=== PATIENT | male | born 1955 | race Caucasian/White ===

== ENCOUNTER → 2018-07-23 09:55 | Outpatient (CLI) | payer MEDICARE, MEDICAID, SELFPAY ==
[2018-07-23 13:00] LABS: Anion Gap 8 (5-15); BUN 6 mg/dL (7-18); BUN/Creat Ratio 7.6 RATIO (10-20); Calcium,Total 8.6 mg/dL (8.5-10.1); Chloride 100 mmol/L (98-107); Cholesterol 154 mg/dL (200); Creatinine, Serum 0.78 mg/dL (0.70-1.30); EST Glomerular Filtration Rate 106 mL/min (>60); Est Glom Filt Rate - Afr Amer 128 mL/min (>60); Glucose 95 mg/dL (74-106); High Density Lipoprotein 39 mg/dL; PSA,Total - Annual Screen 2.86 ng/mL (0.00-4.00); Potassium 4.1 mmol/L (3.5-5.1); Sodium Level 135 mmol/L (136-145); Thyroid Stim Hormone (TSH) 0.25 uIU/mL (0.358-3.74); Triglycerides 187 mg/dL; Very Low Density Lipoprotein 37 mg/dL (5-40)
== END ==
PROVIDERS: Family Provider Family Medicine; PCP Family Medicine; Visit Provider Family Medicine
DX: Z00.00 Encounter for general adult medical examination without abnormal findings (principal); Z12.5 Encounter for screening for malignant neoplasm of prostate
CPT/HCPCS: 36415; 80048; 80061; 82306; 84153; 84443; G0103

== ENCOUNTER → 2018-09-15 08:36 | Outpatient (CLI) | payer MEDICARE, MEDICAID, SELFPAY ==
[2018-09-15 10:47] LABS: Thyroid Stim Hormone (TSH) 1.08 uIU/mL (0.358-3.74)
== END ==
PROVIDERS: Family Provider Family Medicine; PCP Family Medicine; Visit Provider Family Medicine
DX: E03.9 Hypothyroidism, unspecified (principal)
CPT/HCPCS: 36415; 84443

== ENCOUNTER 2019-02-22 16:17 | Emergency (ER) | payer MEDICARE, MEDICAID, SELFPAY ==
[2019-02-22 16:18] VITALS: BP 175/96; PULSE 68; RESP 18; TEMP 37.7; O2SAT 98; BMI 32.8
[2019-02-22 17:19] VITALS: BP 175/96; PULSE 68; RESP 18; TEMP 37.7; O2SAT 98; BMI 32.8
[2019-02-22 17:23] VITALS: BP 172/97; PULSE 64; RESP 15; O2SAT 98
--- NOTE | 2019-02-22 18:35 | ED.VIS.GEN ---
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 Denies: Bilateral ear pain Cardiovascular: Denies: Chest pain, Palpitations Respiratory: Reports: Dyspnea - only w/ coughing, Cough. Denies: Sputum, Dyspnea on exertion, Orthopnea Gastrointestinal: Reports: Abdominal pain - tight when bends over. Denies: Nausea, Vomiting, Diarrhea Musculoskeletal: Denies: Back pain, Swelling, Extremity Pain Skin: Denies: Rash, Wounds Physical Exam Vital Signs/Narrative: Vital Signs Temp Pulse Resp BP Pulse Ox 02/22/19 17:23 64 15 172/97 H 98 02/22/19 17:19 99.8 F H 68 18 175/96 H 98 02/22/19 16:18 99.8 F H 68 18 175/96 H 98 Inital Vital Signs reviewed: Yes General: Well nourished, Well developed, Obese, No Acute Distress Head: Normocephalic, Atraumatic Eyes: Perrl, EOMI ENT: Moist mucous membranes, No rhinorrhea, TM's clear, Nasal congestion. Negative for: Sinus tenderness Neck: Supple, Nontender, No lymphadenopathy, No JVD Cardiovascular: Regular rate, Regular rhythm, No murmurs Respiratory: No distress, CTA bilaterally, Chest nontender Abdomen: Soft, Nontender, Nondistended, Normal bowel sounds Extremities: Nontender, No edema. Negative for: Calf Tenderness Skin: Normal color, No rash Neurological: Alert, Oriented x3, Cranial nerves II-XII grossly intact, Normal Strength, Normal Sensation, - - stuttering speech. not aphasic. Psychological: Normal affect, Normal Mood Diagnostic/Tx/Re-eval - Medical Decision Making Other than a low-grade temperature and hypertensive at 170, his vital signs are normal. He is ambulatory without difficulty. His lungs sound clear and his pulse ox is good. I do not think he needs worked up for pneumonia or influenza at this time since his symptoms have been present for 2 months and 2 weeks. I think it is reasonable since he has not seen a physician/practitioner prior to now for this illness, to place him on a broad-spectrum antibiotic such as a Z-Gabriele. He is agreeable to this and following up with his doctor. ED Disposition - Plan for ED Patient: Disposition: Home or Assisted Living Diagnosis: URI, acute Instructions: ED Upper Resp Infec Abx Tx Prescriptions: Azithromycin 250 mg PO DAILY #4 tab Referrals: Jossue Anderson MD [Primary Care Provider] - 1 Week if not improving
--- NOTE | 2019-02-22 18:39 | ED.DCSUM_ITS ---
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 Denies: Bilateral ear pain Cardiovascular: Denies: Chest pain, Palpitations Respiratory: Reports: Dyspnea - only w/ coughing, Cough. Denies: Sputum, Dyspnea on exertion, Orthopnea Gastrointestinal: Reports: Abdominal pain - tight when bends over. Denies: Nausea, Vomiting, Diarrhea Musculoskeletal: Denies: Back pain, Swelling, Extremity Pain Skin: Denies: Rash, Wounds Physical Exam Vital Signs/Narrative: Vital Signs Temp Pulse Resp BP Pulse Ox 02/22/19 17:23 64 15 172/97 H 98 02/22/19 17:19 99.8 F H 68 18 175/96 H 98 02/22/19 16:18 99.8 F H 68 18 175/96 H 98 Inital Vital Signs reviewed: Yes General: Well nourished, Well developed, Obese, No Acute Distress Head: Normocephalic, Atraumatic Eyes: Perrl, EOMI ENT: Moist mucous membranes, No rhinorrhea, TM's clear, Nasal congestion. Negative for: Sinus tenderness Neck: Supple, Nontender, No lymphadenopathy, No JVD Cardiovascular: Regular rate, Regular rhythm, No murmurs Respiratory: No distress, CTA bilaterally, Chest nontender Abdomen: Soft, Nontender, Nondistended, Normal bowel sounds Extremities: Nontender, No edema. Negative for: Calf Tenderness Skin: Normal color, No rash Neurological: Alert, Oriented x3, Cranial nerves II-XII grossly intact, Normal Strength, Normal Sensation, - - stuttering speech. not aphasic. Psychological: Normal affect, Normal Mood Diagnostic/Tx/Re-eval - Medical Decision Making Other than a low-grade temperature and hypertensive at 170, his vital signs are normal. He is ambulatory without difficulty. His lungs sound clear and his pulse ox is good. I do not think he needs worked up for pneumonia or influenza at this time since his symptoms have been present for 2 months and 2 weeks. I think it is reasonable since he has not seen a physician/practitioner prior to now for this illness, to place him on a broad-spectrum antibiotic such as a Z- Gabriele. He is agreeable to this and following up with his doctor. ED Disposition - Plan for ED Patient: Disposition: Home or Assisted Living Diagnosis: URI, acute Instructions: ED Upper Resp Infec Abx Tx Prescriptions: Azithromycin 250 mg PO DAILY #4 tab Referrals: Jossue Anderson MD [Primary Care Provider] - 1 Week if not improving
[2019-02-22] MEDS: Azithromycin 250 MG Tablet 500 MG PO (18:50)
[2019-02-22 18:51] VITALS: BP 176/101; PULSE 62; RESP 16; O2SAT 96
== END 2019-02-22 18:53 | disposition home or self-care (01) ==
PROVIDERS: Emergency Provider Emergency Medicine; Family Provider Family Medicine; PCP Family Medicine
DX: J06.9 Acute upper respiratory infection, unspecified (principal); Z87.891 Personal history of nicotine dependence; E66.9 Obesity, unspecified
CPT/HCPCS: 99282

== ENCOUNTER → 2019-04-10 11:51 | Outpatient (CLI) | payer MEDICARE, MEDICAID, SELFPAY ==
[2019-04-10 14:46] LABS: Absolute Neutrophil Count 4.7 X10^3/uL (2.0-7.7); Basophil# 0.02 X10^3/uL; Basophil% 0.2 % (0-1); Eosinophil# 0.22 X10^3/uL; Eosinophils% 2.6 % (0-5); Hematocrit 44.9 % (40-54); Hemoglobin 15.4 g/dl (13.0-16.5); Lymphocyte % 32.3 % (19-41); Mean Corp Hgb Conc 34.3 g/gl (32-36); Mean Corpuscular Hgb 30.5 pg (27.0-32.0); Mean Corpuscular Volume 88.9 fL (80-94); Mean Platelet Vol. 9.9 fl (6.2-12.0); Monocyte# 0.68 X10^3/uL; Monocyte% 8.1 % (0-10); Neutrophil # 4.71 X10^3/uL (2.7-7.7); Neutrophil % 56.6 % (47-70); Platelet Count 232 K/mm3 (150-450); RBC Distribution Width CV 13.7 % (11.6-14.6); RBC Distribution Width SD 44.3 fl (35.1-43.9); Red Blood Count 5.05 M/mm3 (4.6-6.2); White Blood Count 8.4 K/mm3 (4.4-11.0)
[2019-04-10 14:49] LABS: POSITIVE COUNT NO; POSITIVE DIFFERENTIAL NO; POSITIVE MORPHOLOGY NO
[2019-04-10 15:04] LABS: Erythrocyte Sedimentation Rate 1 mm/hr (0-20)
[2019-04-10 15:12] LABS: Anion Gap 6 (5-15); BUN 11 mg/dL (7-18); BUN/Creat Ratio 11.1 RATIO (10-20); CRP < 2.90 mg/L (0.0-3.0); Calcium,Total 9.1 mg/dL (8.5-10.1); Chloride 101 mmol/L (98-107); Creatinine, Serum 0.99 mg/dL (0.70-1.30); EST Glomerular Filtration Rate 81 mL/min (>60); Est Glom Filt Rate - Afr Amer 98 mL/min (>60); Glucose 102 mg/dL (74-106); Potassium 4.7 mmol/L (3.5-5.1); Rheumatoid Factor < 10.0 IU/mL (<15); Sodium Level 136 mmol/L (136-145)
== END ==
PROVIDERS: Family Provider Family Medicine; PCP Family Medicine; Referring Provider Family Medicine; Visit Provider Family Medicine
DX: M25.50 Pain in unspecified joint (principal)
CPT/HCPCS: 36415; 80048; 85025; 85652; 86140; 86431

== ENCOUNTER 2019-11-23 14:10 | Observation (INO) | payer MEDICARE, MEDICAID, SELFPAY ==
[2019-11-23] VITALS (9 sets, daily range): BP systolic 142–179; BP diastolic 87–95; PULSE 58–71; RESP 14–18; TEMP 36.5–36.8; O2SAT 96–100; BMI 32.8; BMI 32.5; BMI 32.6
--- NOTE | 2019-11-23 14:18 | EKG12_ITS ---
Test Reason : CP ADMIT Blood Pressure : / mmHG Vent. Rate : 054 BPM Atrial Rate : 054 BPM P-R Int : 140 ms QRS Dur : 120 ms QT Int : 424 ms P-R-T Axes : 039 -19 018 degrees QTc Int : 402 ms Sinus bradycardia Right bundle branch block Abnormal ECG No previous ECGs available Confirmed by LAVON WASHINGTON, YOHANA ([id number]), features editor CECIL HEDRICK ([id number]) on 11/27/2019 10:55:54 AM Referred By: Sidney Haskins Confirmed By:BRANDON DOLL MD
--- NOTE | 2019-11-23 14:20 | RAD_ITS ---
STUDY: X-RAY CHEST REASON FOR EXAM: Male, 64 years old. Chest pain TECHNIQUE: Frontal view of the chest COMPARISON: 03/19/2014 FINDINGS: The lungs are clear. There are no pleural effusions. There is no pneumothorax. The heart is normal in size. The visualized osseous structures are within normal limits. RAD/Chest 1 View (Portable) IMPRESSION: No acute thoracic pathology. Electronically Signed: Akash Lira, at 14:44 EST Tel , Service support ,
[2019-11-23 14:27] LABS: Absolute Lymphocyte Count 2.47 X10^3/uL (0.83-4.51); Absolute Neutrophil Count 4.6 X10^3/uL (2.0-7.7); Basophil# 0.04 X10^3/uL; Basophil% 0.5 % (0-1); Eosinophil# 0.18 X10^3/uL; Eosinophils% 2.3 % (0-5); Hematocrit 41.5 % (40-54); Hemoglobin 14.1 g/dL (13.0-16.5); Lymphocyte # 2.47 X10^3/ul (4.0); Mean Corpuscular Hgb 29.9 pg (27.0-32.0); Mean Corpuscular Volume 87.9 fL (80-94); Mean Platelet Vol. 9.2 fl (6.2-12.0); Monocyte# 0.69 X10^3/uL; Monocyte% 8.7 % (0-10); NRBC Flagged by Analyzer 0 % (0-5); Neutrophil # 4.56 X10^3/uL (2.7-7.7); Neutrophil % 57.2 % (47-70); Platelet Count 198 K/mm3 (150-450); Red Blood Count 4.72 M/mm3 (4.6-6.2)
[2019-11-23 14:41] LABS: Anion Gap 4 (5-15); BUN 8 mg/dL (7-18); BUN/Creat Ratio 8.7 RATIO (10-20); Calcium,Total 8.8 mg/dL (8.5-10.1); Chloride 99 mmol/L (98-107); Creatinine, Serum 0.92 mg/dL (0.70-1.30); EST Glomerular Filtration Rate 88 mL/min (>60); Est Glom Filt Rate - Afr Amer 107 mL/min (>60); Estimated Creatinine Clearance 94.31 ml/min; Glucose 95 mg/dL (74-106); Potassium 3.8 mmol/L (3.5-5.1); Sodium Level 133 mmol/L (136-145)
--- NOTE | 2019-11-23 14:46 | EKG12_ITS ---
Test Reason : CP Blood Pressure : / mmHG Vent. Rate : 064 BPM Atrial Rate : 064 BPM P-R Int : 144 ms QRS Dur : 118 ms QT Int : 400 ms P-R-T Axes : 033 -26 006 degrees QTc Int : 412 ms Normal sinus rhythm Right bundle branch block Minimal voltage criteria for LVH, may be normal variant Abnormal ECG Confirmed by LAVON WASHINGTON, YOHANA ([id number]), writer editor CECIL HEDRICK ([id number]) on 11/27/2019 11:25:37 AM Referred By: Sidney Haskins Confirmed By:BRANDON DOLL MD
--- NOTE | 2019-11-23 15:00 | ED.VIS.GEN ---
History of Present Illness Chief Complaint: Chest Pain Detail of Chief Complaint: Exertional chest pain Informant: Patient Onset: Weeks Context: Onset with activity, Sudden Onset Timing: Intermittent Quality: Midsternal sharp Location: Anterior midsternal Current Severity: - - None Maximum Severity: Moderate Worsened by: Precipitated by exertion Relieved by: Uncertain Associated Symptoms: Dyspnea Narrative: Patient is a 64-year-old male who is cognitively impaired who lives in a long term who was sent in because of anterior sharp chest pain. He states this is been intermittent for more than a month. He initially denied any precipitating exacerbating or alleviating factors. Upon further questioning he states he notices the pain when he exerts himself . He also becomes short of breath. Duration varies. He is not able to tell me if it goes away with rest or not. Prior similar symptoms: No Recent Illness/Hospitalization: No - Past Medical History (1) Unknown past medical history Status: Acute Past Medical History - Allergies and Home Meds Allergies/Adverse Reactions: Allergies Penicillins [PCN] Allergy (Verified 02/22/19 16:20) Anaphylaxis Primary Care Physician: Jossue Anderson MD [Primary Care Provider] - Prior records reviewed: Yes Past Medical History: None Lives: - - Resides at a long term Smoking Status: Former smoker Alcohol: None Drugs: None Review of Systems ROS: Unable to Obtain - History is limited. General: Denies: Chills, Fever, Malaise Eyes: Denies: Visual changes - bilaterally, Blurred Vision - bilaterally ENT: Denies: Rhinorrhea, Sore throat Cardiovascular: Reports: Chest pain. Denies: Palpitations Respiratory: Reports: Dyspnea, Dyspnea on exertion Gastrointestinal: Denies: Abdominal pain, Nausea, Vomiting, Diarrhea Musculoskeletal: Denies: Myalgias, Arthralgias, Back pain, Swelling, Extremity Pain Skin: Denies: Rash, Wounds Neurological: Denies: Weakness, Parasthesia, Numbness Psych: Denies: Depression, Anxiety Hematologic: Denies: Easy bruising, Easy bleeding Physical Exam Vital Signs/Narrative: Vital Signs Temp Pulse Resp BP Pulse Ox 11/23/19 14:21 98 11/23/19 14:11 98.3 F 69 18 179/95 H 98 Inital Vital Signs reviewed: Yes General: Well nourished, Well developed, No Acute Distress Head: Normocephalic, Atraumatic Eyes: Perrl, EOMI. Negative for: Pale conjunctiva, Scleral icterus ENT: Moist mucous membranes, No rhinorrhea Neck: Supple, Nontender Cardiovascular: Regular rate, Regular rhythm, No murmurs, Normal S1, Normal S2 Respiratory: No distress, CTA bilaterally, Chest nontender Abdomen: Soft, Nontender, Nondistended, Normal bowel sounds Back: Nontender, Normal Inspection Extremities: Nontender, No edema. Negative for: Calf Tenderness Skin: Normal color, No rash Neurological: Alert, Oriented x3, Cranial nerves II-XII grossly intact, Normal Strength, Normal Sensation Psychological: Normal affect, Normal Mood Diagnostic/Tx/Re-eval Impressions Chest X-Ray 11/23/19 14:20 IMPRESSION: No acute thoracic pathology. Electronically Signed: Akash Pankaj, at 14:44 EST Tel , Service support , 11/23/19 14:20 Chest 1 View (Portable) [RAD] Stat Laboratory Results 11/23/19 11/23/19 14:15 14:15 WBC 8.0 RBC 4.72 Hgb 14.1 Hct 41.5 MCV 87.9 MCH 29.9 MCHC 34.0 RDW Std Deviation 42.0 RDW Coeff of Evelin 13.0 Plt Count 198 MPV 9.2 Immature Gran % (Auto) 0.300 Neut % (Auto) 57.2 Lymph % (Auto) 31.0 [place] % (Auto) 8.7 Eos % (Auto) 2.3 Baso % (Auto) 0.5 Absolute Neuts (auto) 4.6 Absolute Lymphs (auto) 2.47 Nucleated RBC % 0 Sodium 133 L Potassium 3.8 Chloride 99 Carbon Dioxide 30.0 Anion Gap 4 L BUN 8 Creatinine 0.92 Estim Creat Clear Calc 94.31 Est GFR (MDRD) Af Amer 107 Est GFR (MDRD) Non-Af 88 BUN/Creatinine Ratio 8.7 L Glucose 95 Calcium 8.8 Troponin I < 0.015 Chest x-ray reviewed by me and agree with radiology read of negative. Blood work including troponin is negative. Because he describes exertional chest pain is 64 years of age hospitalist has been paged for further work-up i.e. stress test and serial enzymes. - EKG Initial EKG Interpretation: Sinus Rhythm - Sinus rhythm with ventricular rate of 64. IA interval 144 ms. QRS duration 118 ms. There is an RR prime in V1. This probably represents incomplete right bundle branch block. QT interval 400 ms. There is a flipped T wave in lead III only. - Medical Decision Making Patient reports exertional pain. History is limited secondary to cognitive impairment. EKG, chest x-ray appropriate blood work was obtained to differentiate whether this may or may not be cardiac ischemia specifically non-ST elevation ND. Differential cardiac versus noncardiac. ED Disposition - Plan for ED Patient: Disposition: Acute Care Hospital [facility] Diagnosis: Exertional chest pain Referrals: Jossue Anderson MD [Primary Care Provider] -
--- NOTE | 2019-11-23 15:50 | ED.RN ---
called and spoke with [facility] custodial that pt will be staying overnight on PCU. spoke with
--- NOTE | 2019-11-23 16:27 | PCM.HP.STD ---
History of Present Illness Date of Admission: 11/23/19 Chief Complaint: Chest Pain The patient is a 64 year old M with a PMH as below from a long term, presenting with chest pain is been going on for about a month. He says it is intermittent and occurs with both at rest and with exertion. He states that at times he will get lightheaded with this and short of breath but has not had any diaphoresis. The chest pain does not radiate to either his jaw or his left arm. He denies any loss of consciousness or syncopal episodes with the chest pain. In the ER EKG was normal sinus with no signs of ischemia, initial troponin was negative. He is in a long term because of a cognitive disability and therefore was a difficult historian. Past Medical History Allergies Penicillins [PCN] Allergy (Verified 02/22/19 16:20) Anaphylaxis Home Medications: Ambulatory Orders Medication Instructions Recorded Aspirin [Aspirin EC] 325 mg PO DAILY 11/23/19 Benztropine [Cogentin] 2 mg PO DAILY 11/23/19 Budesonide/Formoterol 160/4.5 1 puff IH BID 11/23/19 [Symbicort 160/4.5 Mcg Inhaler (SP)] Cholecalciferol (VIT D3) [Vitamin 1,000 unit PO DAILY 11/23/19 D3] Docusate Sodium [Colace] 200 mg PO DAILY 11/23/19 Doxycycline 100 mg PO BID 11/23/19 Gabapentin [Neurontin] 300 mg PO TID 11/23/19 Levothyroxine [Synthroid] 150 mcg PO DAILY 11/23/19 Lisinopril 20 mg PO DAILY 11/23/19 Lorazepam 0.5 mg PO BID PRN 11/23/19 Lorazepam 1 mg PO BID 11/23/19 Meloxicam 15 mg PO DAILY 11/23/19 Multivit-Min/FA/Lycopen/Lutein 1 tab PO DAILY 11/23/19 [Centrum Silver Men Tablet] Mupirocin [Bactroban] 1 applicatio TOPICAL BID 11/23/19 Omeprazole 20 mg PO DAILY 11/23/19 Simvastatin [Zocor] 20 mg PO DAILY 11/23/19 traZODone [Desyrel] 100 mg PO DAILY 11/23/19 Surgical History: no surgical history Lives: - - Resides at a long term Smoking Status: Former smoker Tobacco Use: Cigarettes Alcohol: None Drugs: None - *Family History Maternal History Items: Cancer Paternal History Items: Cancer Review of Systems Constitutional: Denies: Chills, Fever, Weight Change HEENT: Denies: Head Aches, Sinus Congestion, Sinus Drainage Cardiovascular: Reports: Chest Pain. Denies: Palpitations Respiratory: Denies: Cough, Shortness of breath at rest, Sputum production Gastrointestinal: Denies: Abdominal Pain, Nausea, Vomiting Genitourinary: Denies: Dysuria Musculoskeletal: Denies: Joint Pain, Joint Tenderness Skin: Denies: Rash, Wounds Neurological: Denies: Numbness, Tingling, Focal weakness Psychiatric: Denies: Anxiety, Depression Hematologic/ Lymphatic: Denies: Easy Bruising, Easy Bleeding VTE Information - Inpt Only VTE Present on Admission: No Patient Problems: Active and Suspected Problems Unknown past medical history (Acute) Exertional chest pain (Acute) - Physical Exam Vitals/I&O's: Vital Signs Temp Pulse Resp BP Pulse Ox 97.8 F 60 16 159/90 H 100 11/23/19 16:10 11/23/19 16:10 11/23/19 16:10 11/23/19 16:10 11/23/19 16:10 Oxygen Flow Rate (L/min) 2 Oxygen Delivery Method Nasal Cannula Weight: 253 lb 9.6 oz Body Mass Index (BMI) 32.5 General: Alert, Oriented x3, Cooperative, No apparent distress HEENT: Atraumatic, PERRLA, EOMI, Normocephalic Oral: Moist Mucosa Neck: Supple, No JVD Lungs: Clear to auscultation, Normal air movement, No rhonchi, No wheeze, No rales, Diminished Cardiovascular: Regular rate, Regular Rhythm, Normal S1, Normal S2, No murmurs Abdomen: Soft, Non Tender, Non-Distended, No Hepato-splenomegaly Extremities: No edema, Capillary Refill Less than 3 Seconds Skin: No rashes, No breakdown Neurological: Neuro grossly intact, Sensory exam intact to light touch and pain Psych/Mental Status: Normal Affect, Appropriate, - - Speech is slow likely secondary to cognitive disability Laboratory Results 11/23/19 14:15: WBC 8.0, RBC 4.72, Hgb 14.1, Hct 41.5, MCV 87.9, MCH 29.9, MCHC 34.0, RDW Std Deviation 42.0, RDW Coeff of Evelin 13.0, Plt Count 198, MPV 9.2, Immature Gran % (Auto) 0.300, Neut % (Auto) 57.2, Lymph % (Auto) 31.0, [place] % (Auto) 8.7, Eos % (Auto) 2.3, Baso % (Auto) 0.5, Absolute Neuts (auto) 4.6, Absolute Lymphs (auto) 2.47, Nucleated RBC % 0 11/23/19 14:15: Sodium 133 L, Potassium 3.8, Chloride 99, Carbon Dioxide 30.0, Anion Gap 4 L, BUN 8, Creatinine 0.92, Estim Creat Clear Calc 94.31, Est GFR (MDRD) Af Amer 107, Est GFR (MDRD) Non-Af 88, BUN/Creatinine Ratio 8.7 L, Glucose 95, Calcium 8.8, Troponin I < 0.015 Current Medications Nitroglycerin (Nitrostat) 0.4 mg SUBLINGUAL Q5M PRN PRN Reason: CARDIAC/CHEST PAIN Sodium Chloride () 10 - 40 ml IV UD PRN PRN Reason: SALINE FLUSH Assessment/Plan All Active Problems Unknown past medical history (Acute) Exertional chest pain (Acute) 1. Chest pain/HTN/HLD -Initial troponin was negative and EKG was unremarkable -Obtain serial troponins as well as a stress test in the morning -No family history of heart disease as I can tell and is never had any kind of cardiac work-up previously at this institution -continue with his lisinopril, can add medications as necessary -Continue with simvastatin, as well as aspirin 2. COPD -Currently not in exacerbation -Continue with his home Symbicort 3. Hypothyroidism -Stable -Continue with Synthroid 4. GERD -Stable -Continue with PPI 5. Anxiety/depression/cognitive disability -Stable -Continue with Ativan, gabapentin, Cogentin DVT: Low risk Code Visit OBSV E&M: 00805 Initial observation care L2
[2019-11-23] MEDS: Budesonide Respules 0.5 MG/2 ML AMPUL.NEB. INHALATION (19:17)
[2019-11-23] MEDS: Albuterol 2.5 MG/3 ML VIAL.NEB. INHALATION (19:17)
[2019-11-23] MEDS: Docusate Sodium 100 MG Capsule 200 MG PO (21:31)
[2019-11-23] MEDS: Doxycycline 100 MG CAPSULE PO (21:31)
[2019-11-23] MEDS: traZODone 100 MG Tablet PO (21:31)
[2019-11-23] MEDS: LORazepam 1 MG Tablet PO (21:31)
[2019-11-23] MEDS: Atorvastatin Calcium 10 MG Tablet PO (21:31)
[2019-11-23] MEDS: Gabapentin 300 MG Capsule PO (21:32)
[2019-11-24] VITALS (7 sets, daily range): BP systolic 120–146; BP diastolic 61–84; PULSE 57–74; RESP 14–16; TEMP 36.5–36.7; O2SAT 95–98
--- NOTE | 2019-11-24 05:55 | EKG12_ITS ---
Test Reason : AM EKG Blood Pressure : / mmHG Vent. Rate : 061 BPM Atrial Rate : 061 BPM P-R Int : 136 ms QRS Dur : 116 ms QT Int : 428 ms P-R-T Axes : 040 -18 011 degrees QTc Int : 430 ms Normal sinus rhythm Normal ECG When compared with ECG of 23-NOV-2019 14:46, MANUAL COMPARISON REQUIRED, DATA IS UNCONFIRMED Confirmed by LAVON WASHINGTON, YOHANA ([id number]), map editor CECIL HEDRICK ([id number]) on 11/27/2019 10:40:16 AM Referred By: Sidney Haskins Confirmed By:BRANDON DOLL MD
[2019-11-24] MEDS: Lisinopril 20 MG Tablet PO (06:18)
[2019-11-24] MEDS: Aspirin E.C. 325 MG Tablet PO (06:18)
[2019-11-24 06:19] LABS: Absolute Lymphocyte Count 2.03 X10^3/uL (0.83-4.51); Absolute Neutrophil Count 4.1 X10^3/uL (2.0-7.7); Basophil# 0.03 X10^3/uL; Basophil% 0.4 % (0-1); Eosinophil# 0.15 X10^3/uL; Eosinophils% 2.2 % (0-5); Hemoglobin 14.5 g/dL (13.0-16.5); Lymphocyte # 2.03 X10^3/ul (4.0); Lymphocyte % 29.4 % (19-41); Mean Corp Hgb Conc 33.7 g/dL (32-36); Mean Corpuscular Hgb 29.8 pg (27.0-32.0); Mean Corpuscular Volume 88.5 fL (80-94); Mean Platelet Vol. 9.2 fl (6.2-12.0); Monocyte# 0.63 X10^3/uL; Monocyte% 9.1 % (0-10); NRBC Flagged by Analyzer 0 % (0-5); Neutrophil # 4.06 X10^3/uL (2.7-7.7); Neutrophil % 58.8 % (47-70); Platelet Count 190 K/mm3 (150-450); RBC Distribution Width CV 13.5 % (11.6-14.6); RBC Distribution Width SD 43.4 fl (35.1-43.9); Red Blood Count 4.86 M/mm3 (4.6-6.2); White Blood Count 6.9 K/mm3 (4.4-11.0)
[2019-11-24] MEDS: 0.9% Saline Lock 10 ML Syringe IV (06:49)
[2019-11-24 06:58] LABS: Anion Gap 7 (5-15); BUN 8 mg/dL (7-18); BUN/Creat Ratio 9.2 RATIO (10-20); Calcium,Total 8.6 mg/dL (8.5-10.1); Chloride 102 mmol/L (98-107); Cholesterol 182 mg/dL (200); Creatinine, Serum 0.87 mg/dL (0.70-1.30); EST Glomerular Filtration Rate 93 mL/min (>60); Est Glom Filt Rate - Afr Amer 113 mL/min (>60); Estimated Creatinine Clearance 99.73 ml/min; Glucose 93 mg/dL (74-106); High Density Lipoprotein 40 mg/dL; Potassium 3.9 mmol/L (3.5-5.1); Sodium Level 138 mmol/L (136-145); Triglycerides 242 mg/dL; Very Low Density Lipoprotein 48 mg/dL (5-40)
[2019-11-24] MEDS: Albuterol 2.5 MG/3 ML VIAL.NEB. INHALATION ×2 (07:07→13:13)
[2019-11-24] MEDS: Budesonide Respules 0.5 MG/2 ML AMPUL.NEB. INHALATION (07:07)
[2019-11-24] MEDS: Pantoprazole Sodium 20 MG Tablet PO (12:28)
[2019-11-24] MEDS: Meloxicam 15 MG Tablet PO (12:28)
[2019-11-24] MEDS: Benztropine 2 MG Tablet PO (12:28)
[2019-11-24] MEDS: Doxycycline 100 MG CAPSULE PO (12:28)
[2019-11-24] MEDS: LORazepam 1 MG Tablet PO (12:28)
[2019-11-24] MEDS: Gabapentin 300 MG Capsule PO (12:29)
--- NOTE | 2019-11-24 12:31 | CASEMGMT ---
ONDINA called patient's snf and asked if they would be picking patient up at d/c. He said they would not be able to pick him up, but he has taxi passes with him and he just needs to call a taxi. ONDINA let him know patient will likely be discharged today if his stress test is okay. Shahla LAW
--- NOTE | 2019-11-24 12:52 | STRESSREP ---
Stress Test Report Date: 11/24/2019 Procedure: Pharmacologic stress nuclear imaging study Indications: Chest pain Consent: Per the patient Procedure: The patient underwent pharmacologic (Regadenoson) evaluation with a peak heart rate of 93 beats per minute (59 %predicted maximal heart rate) and a peak blood pressure of 150/84 mmHg. The baseline ECG demonstrated normal sinus rhythm, right bundle branch block. EKG during lexiscan infusion revealed no significant ischemic change. EKG post infusion revealed no significant ischemic [There were no cardiac dysrhythmias pretest, during pharmacologic infusion, or recovery]. [There was no complaint of chest discomfort during pharmacologic infusion or recovery]. The examination was discontinued secondary to completion of protocol. Impression: 1. Lexiscan stress test test is negative for Lexiscan infusion induced EKG changes of ischemia. 2. Lexiscan stress test test is negative for Lexiscan infusion induced chest pain. 3. Results of the nuclear portion of the test is as below Myocardial perfusion imaging study: Technique: The patient was injected with 13.9 millicuries of technetium 99m Cardiolite and subsequently rest SPECT Cardiolite nuclear imaging was obtained in the horizontal long, vertical long, and short axis views. The patient underwent pharmacologic (Regadenoson) evaluation. Please see above for details. The patient was injected with 43.1 millicuries of technetium 99m Cardiolite and subsequently stress SPECT Cardiolite nuclear imaging was obtained in the horizontal long, vertical long, and short axis views. A gated Cardiolite study at peak stress was obtained. Interpretation: Rest and stress SPECT Cardiolite nuclear imaging status post realignment, normalization, and attenuation correction demonstrate mildly decreased radioisotope uptake in the inferior wall on both the rest and stress images prior to attenuation correction. After attenuation correction there is normal myocardial radioisotope uptake. These findings are suggestive of diaphragmatic attenuation artifact. Gated images reveal no significant regional wall motion abnormalities. The reported LVEF is 62 %. Impression: 1. There is no evidence of significant ischemia or infarction. 2. Estimated ejection fraction is 62%. This note was generated with [employer]ely[employer] software. It may contain incorrect words, spelling, and punctuation that were not noted in checking the note before signing.
--- NOTE | 2019-11-24 13:13 | DCINST_ITS ---
- Discharge Diagnoses Current Active Problems: Current Active and Chronic Problems Unknown past medical history (Acute) Exertional chest pain (Acute) You will use the following diet at home:: Cardiac Your food should be the consistency of: Regular Your liquids should be the consistency of: Regular/Thin Discharge Activity: Return to Normal Activity Call your doctor if you observe: Fever of 101 or Higher, Shortness of breath, Dizziness, Fainting spells, Swelling in the ankles, Chest pain, Increased palpitations (irregular heartbeat) Allergies/Adverse Reactions: Allergies Penicillins [PCN] Allergy (Verified 02/22/19 16:20) Anaphylaxis Medications to take at Discharge Aspirin [Aspirin EC] 325 mg PO DAILY 11/23/19 Benztropine [Cogentin] 2 mg PO DAILY 11/23/19 Budesonide/Formoterol 160/4.5 [Symbicort 160/4.5 Mcg Inhaler (SP)] 1 puff IH BID 11/23/19 Cholecalciferol (VIT D3) [Vitamin D3] 1,000 unit PO DAILY 11/23/19 Docusate Sodium [Colace] 200 mg PO DAILY 11/23/19 Doxycycline 100 mg PO BID 11/23/19 Gabapentin [Neurontin] 300 mg PO TID 11/23/19 Levothyroxine [Synthroid] 150 mcg PO DAILY 11/23/19 Lisinopril 20 mg PO DAILY 11/23/19 Lorazepam 0.5 mg PO BID PRN 11/23/19 Lorazepam 1 mg PO BID 11/23/19 Meloxicam 15 mg PO DAILY 11/23/19 Multivit-Min/FA/Lycopen/Lutein [Centrum Silver Men Tablet] 1 tab PO DAILY 11/23/19 Mupirocin [Bactroban] 1 applicatio TOPICAL BID 11/23/19 Omeprazole 20 mg PO DAILY 11/23/19 Simvastatin [Zocor] 20 mg PO DAILY 11/23/19 traZODone [Desyrel] 100 mg PO DAILY 11/23/19 Primary Care Physician: Jossue Anderson MD [Primary Care Provider] - Please follow up with your Primary Care Physician in: 3-5 days Test Results: Test results from this visit will be discussed in further detail at your follow- up appointment, if applicable.
--- NOTE | 2019-11-24 13:14 | PCM.DC.SUM ---
Discharge Date and Diagnosis - Problem List Patient Problems: Active and Suspected Problems Unknown past medical history (Acute) Exertional chest pain (Acute) Date of Admission: 11/23/19 Date of Discharge: 11/24/19 - Primary Discharge Diagnosis Active and Suspected Problems Unknown past medical history (Acute) Exertional chest pain (Acute) Hospital Course and Treatment Imaging Results: CXR: IMPRESSION: No acute thoracic pathology. Stress Test: Procedure: The patient underwent pharmacologic (Regadenoson) evaluation with a peak heart rate of 93 beats per minute (59 %predicted maximal heart rate) and a peak blood pressure of 150/84 mmHg. The baseline ECG demonstrated normal sinus rhythm, right bundle branch block. EKG during lexiscan infusion revealed no significant ischemic change. EKG post infusion revealed no significant ischemic [There were no cardiac dysrhythmias pretest, during pharmacologic infusion, or recovery]. [There was no complaint of chest discomfort during pharmacologic infusion or recovery]. The examination was discontinued secondary to completion of protocol. Impression: 1. Lexiscan stress test test is negative for Lexiscan infusion induced EKG changes of ischemia. 2. Lexiscan stress test test is negative for Lexiscan infusion induced chest pain. 3. Results of the nuclear portion of the test is as below Myocardial perfusion imaging study: Technique: The patient was injected with 13.9 millicuries of technetium 99m Cardiolite and subsequently rest SPECT Cardiolite nuclear imaging was obtained in the horizontal long, vertical long, and short axis views. The patient underwent pharmacologic (Regadenoson) evaluation. Please see above for details. The patient was injected with 43.1 millicuries of technetium 99m Cardiolite and subsequently stress SPECT Cardiolite nuclear imaging was obtained in the horizontal long, vertical long, and short axis views. A gated Cardiolite study at peak stress was obtained. Interpretation: Rest and stress SPECT Cardiolite nuclear imaging status post realignment, normalization, and attenuation correction demonstrate mildly decreased radioisotope uptake in the inferior wall on both the rest and stress images prior to attenuation correction. After attenuation correction there is normal myocardial radioisotope uptake. These findings are suggestive of diaphragmatic attenuation artifact. Gated images reveal no significant regional wall motion abnormalities. The reported LVEF is 62 %. Impression: 1. There is no evidence of significant ischemia or infarction. 2. Estimated ejection fraction is 62%. Consults: None Operations: None Procedures: Nuclear stress test Summary of Care Provided: Per HPI: The patient is a 64 year old M with a PMH as below from a shelter, presenting with chest pain is been going on for about a month. He says it is intermittent and occurs with both at rest and with exertion. He states that at times he will get lightheaded with this and short of breath but has not had any diaphoresis. The chest pain does not radiate to either his jaw or his left arm. He denies any loss of consciousness or syncopal episodes with the chest pain. In the ER EKG was normal sinus with no signs of ischemia, initial troponin was negative. He is in a shelter because of a cognitive disability and therefore was a difficult historian. Hospital Course: 1. Chest pain/HTN/SEM-10-aarg-old male who is a resident of a shelter presents with chest pain that is been going on for several weeks. He states that it comes with rest and with exertion and is located over the left chest. He denied any radiation. EKG was unremarkable for any ischemic changes. Troponins were negative x3 and he underwent a stress test on the morning of discharge which was also normal. He states that his chest pain has completely resolved. Blood pressures have been stable and I recommend that he continue all of his home medications at their current dosages. He will need to follow-up with his primary care doctor in 3 to 5 days. I discussed with him the discharge plan and he did express understanding. 2. His other medical diagnoses were evaluated and his home medications were continued where appropriate Patient Problems: Active and Suspected Problems Unknown past medical history (Acute) Exertional chest pain (Acute) - Physical Exam Vitals/I&O's: Vital Signs Temp Pulse Resp BP Pulse Ox 98.0 F 68 14 120/61 95 11/24/19 12:20 11/24/19 12:20 11/24/19 12:20 11/24/19 12:20 11/24/19 12:20 Oxygen Flow Rate (L/min) 2 Oxygen Delivery Method Room Air Weight: 253 lb 9.6 oz Body Mass Index (BMI) 32.5 Intake and Output for Last 24 Hours 11/22/19 11/23/19 11/24/19 23:59 23:59 23:59 Intake Total 480 / 480 360 / 360 Output Total 2049 / 2049 650 / 650 Balance -1570 / -1570 -290 / -290 General: Alert, Oriented x3, Cooperative, No apparent distress HEENT: Atraumatic, PERRLA, EOMI, Normocephalic Oral: Moist Mucosa Neck: Supple, No JVD Lungs: Clear to auscultation, Normal air movement, No rhonchi, No wheeze, No rales, Diminished Cardiovascular: Regular rate, Regular Rhythm, Normal S1, Normal S2, No murmurs Abdomen: Soft, Non Tender, Non-Distended, No Hepato-splenomegaly Extremities: No edema, Capillary Refill Less than 3 Seconds Skin: No rashes, No breakdown Neurological: Neuro grossly intact, Sensory exam intact to light touch and pain Psych/Mental Status: Normal Affect, Appropriate, - - Speech is slow likely secondary to cognitive disability Laboratory Results 11/23/19 14:15: WBC 8.0, RBC 4.72, Hgb 14.1, Hct 41.5, MCV 87.9, MCH 29.9, MCHC 34.0, RDW Std Deviation 42.0, RDW Coeff of Evelin 13.0, Plt Count 198, MPV 9.2, Immature Gran % (Auto) 0.300, Neut % (Auto) 57.2, Lymph % (Auto) 31.0, Braxton % (Auto) 8.7, Eos % (Auto) 2.3, Baso % (Auto) 0.5, Absolute Neuts (auto) 4.6, Absolute Lymphs (auto) 2.47, Nucleated RBC % 0 11/23/19 14:15: Sodium 133 L, Potassium 3.8, Chloride 99, Carbon Dioxide 30.0, Anion Gap 4 L, BUN 8, Creatinine 0.92, Estim Creat Clear Calc 94.31, Est GFR (MDRD) Af Amer 107, Est GFR (MDRD) Non-Af 88, BUN/Creatinine Ratio 8.7 L, Glucose 95, Calcium 8.8, Troponin I < 0.015 11/23/19 17:42: Troponin I < 0.015 11/23/19 20:42: Troponin I < 0.015 11/24/19 05:35: WBC 6.9, RBC 4.86, Hgb 14.5, Hct 43.0, MCV 88.5, MCH 29.8, MCHC 33.7, RDW Std Deviation 43.4, RDW Coeff of Evelin 13.5, Plt Count 190, MPV 9.2, Immature Gran % (Auto) 0.100, Neut % (Auto) 58.8, Lymph % (Auto) 29.4, Braxton % (Auto) 9.1, Eos % (Auto) 2.2, Baso % (Auto) 0.4, Absolute Neuts (auto) 4.1, Absolute Lymphs (auto) 2.03, Nucleated RBC % 0 11/24/19 05:35: Sodium 138, Potassium 3.9, Chloride 102, Carbon Dioxide 29.0, Anion Gap 7, BUN 8, Creatinine 0.87, Estim Creat Clear Calc 99.73, Est GFR (MDRD) Af Amer 113, Est GFR (MDRD) Non-Af 93, BUN/Creatinine Ratio 9.2 L, Glucose 93, Calcium 8.6, Triglycerides 242 H, Cholesterol 182, LDL Cholesterol 94, VLDL Cholesterol 48 H, HDL Cholesterol 40 Current Medications Albuterol Sulfate (Ventolin Aerosols) 2.5 mg INHALATION Q6HWA.RT [facility] Last Admin: 11/24/19 13:13 Dose: 2.5 mg Documented by: Aspirin (Ecotrin) 325 mg PO DAILYCM [facility] [place] Last Admin: 11/24/19 06:18 Dose: 325 mg Documented by: Atorvastatin Calcium (Lipitor) 10 mg PO QHS [facility] [place] Last Admin: 11/23/19 21:31 Dose: 10 mg Documented by: Benztropine Mesylate (Cogentin) 2 mg PO DAILY [facility] [place] Last Admin: 11/24/19 12:28 Dose: 2 mg Documented by: Budesonide (Pulmicort Aerosol) 0.5 mg INHALATION Q12H.RT [facility] [place] Last Admin: 11/24/19 07:07 Dose: 0.5 mg Documented by: Docusate Sodium (Colace) 200 mg PO HS [facility] [place] Last Admin: 11/23/19 21:31 Dose: 200 mg Documented by: Doxycycline Monohydrate (Doxycycline) 100 mg PO BID [facility] [place] Last Admin: 11/24/19 12:28 Dose: 100 mg Documented by: Gabapentin (Neurontin) 300 mg PO TID [facility] [place] Last Admin: 11/24/19 12:29 Dose: 300 mg Documented by: Levothyroxine Sodium (Synthroid) 150 mcg PO DAILY@0600 [facility] [place] Last Admin: 11/24/19 06:23 Dose: Not Given Documented by: Lisinopril (Zestril) 20 mg PO DAILY [facility] [place] Last Admin: 11/24/19 06:18 Dose: 20 mg Documented by: Lorazepam (Ativan) 0.5 mg PO BID PRN PRN Reason: ANXIETY Lorazepam (Ativan) 1 mg PO BID [facility] [place] Last Admin: 11/24/19 12:28 Dose: 1 mg Documented by: Meloxicam (Mobic) 15 mg PO DAILY [facility] [place] Last Admin: 11/24/19 12:28 Dose: 15 mg Documented by: Nitroglycerin (Nitrostat) 0.4 mg SUBLINGUAL Q5M PRN PRN Reason: CARDIAC/CHEST PAIN Nutritional Formula (Lactose Free) (Ensure Enlive) 120 ml PO 4X/DAY [facility] [place] Last Admin: 11/24/19 12:29 Dose: Not Given Documented by: Pantoprazole Sodium (Protonix) 20 mg PO DAILY [facility] [place] Last Admin: 11/24/19 12:28 Dose: 20 mg Documented by: Sodium Chloride () 10 - 40 ml IV UD PRN PRN Reason: SALINE FLUSH Last Admin: 11/24/19 06:49 Dose: 10 ml Documented by: Trazodone HCl (Desyrel) 100 mg PO HS [facility] [place] Last Admin: 11/23/19 21:31 Dose: 100 mg Documented by: Discharge Activity: Return to Normal Activity Call your doctor if you observe: Fever of 101 or Higher, Shortness of breath, Dizziness, Fainting spells, Swelling in the ankles, Chest pain, Increased palpitations (irregular heartbeat) Home Medications: Medications to take at Discharge Aspirin [Aspirin EC] 325 mg PO DAILY 11/23/19 Benztropine [Cogentin] 2 mg PO DAILY 11/23/19 Budesonide/Formoterol 160/4.5 [Symbicort 160/4.5 Mcg Inhaler (SP)] 1 puff IH BID 11/23/19 Cholecalciferol (VIT D3) [Vitamin D3] 1,000 unit PO DAILY 11/23/19 Docusate Sodium [Colace] 200 mg PO DAILY 11/23/19 Doxycycline 100 mg PO BID 11/23/19 Gabapentin [Neurontin] 300 mg PO TID 11/23/19 Levothyroxine [Synthroid] 150 mcg PO DAILY 11/23/19 Lisinopril 20 mg PO DAILY 11/23/19 Lorazepam 0.5 mg PO BID PRN 11/23/19 Lorazepam 1 mg PO BID 11/23/19 Meloxicam 15 mg PO DAILY 11/23/19 Multivit-Min/FA/Lycopen/Lutein [Centrum Silver Men Tablet] 1 tab PO DAILY 11/23/19 Mupirocin [Bactroban] 1 applicatio TOPICAL BID 11/23/19 Omeprazole 20 mg PO DAILY 11/23/19 Simvastatin [Zocor] 20 mg PO DAILY 11/23/19 traZODone [Desyrel] 100 mg PO DAILY 11/23/19 Primary Care Physician: Jossue Anderson MD [Primary Care Provider] - Please follow up with your Primary Care Physician in: 3-5 days Disposition: Home Minutes spent on discharge:: 35 Patient Condition:: Stable Medical Necessity - Tobacco Use Smoking Status: Former smoker Tobacco Use: Cigarettes Meaningful Use Info Meaningful Use Diagnoses (Choose all that apply): None applicable Code Visit OBSV E&M: 49032 Observation care discharge
== END 2019-11-24 13:14 | disposition home or self-care (01) ==
LOC: ED 15:42 → PCU 15:45
PROVIDERS: Admitting Provider Family Medicine; Emergency Provider Emergency Medicine; Family Provider Family Medicine; PCP Family Medicine; Referring Provider Family Medicine; Visit Provider Family Medicine
DX: R07.89 Other chest pain (principal); R06.02 Shortness of breath; Z87.891 Personal history of nicotine dependence; Z79.899 Other long term (current) drug therapy; Z79.82 Long term (current) use of aspirin; J44.9 Chronic obstructive pulmonary disease, unspecified; E03.9 Hypothyroidism, unspecified; K21.9 Gastro-esophageal reflux disease without esophagitis; F41.9 Anxiety disorder, unspecified; F32.9 Major depressive disorder, single episode, unspecified; I45.10 Unspecified right bundle-branch block; R42 Dizziness and giddiness
CPT/HCPCS: 36415; 71045; 78452; 80048; 80061; 84484; 85025; 93005; 93017; 94640; 99218; 99251; 99285; A9500; J7030; A4216; G0378; G0463; J2785

== ENCOUNTER 2020-01-31 17:23 | Emergency (ER) | payer MEDICARE, MEDICAID, SELFPAY ==
[2019-11-23 16:00] VITALS: BMI 32.5
[2020-01-31 17:24] VITALS: BP 164/82; PULSE 81; RESP 16; TEMP 37.3; O2SAT 97; BMI 32.8
--- NOTE | 2020-01-31 17:40 | RAD_ITS ---
STUDY: X-RAY CHEST REASON FOR EXAM: Male, 64 years old. COUGH, SOB TECHNIQUE: PA and lateral views of the chest. COMPARISON: Prior study of 11/23/2019 FINDINGS: The lungs are clear and expanded. There is no demonstrated pleural abnormality. Normal size heart. Normal mediastinum and miguelina. Normal visualized pulmonary arteries. Normal visualized aortic arch and descending thoracic aorta. There are diffuse degenerative changes of the visualized thoracic spine. Normal visualized ribs, clavicles, and shoulders. There is no demonstrated abnormality of the visualized soft tissue structures of the upper abdomen. RAD/Chest PA and Lateral IMPRESSION: Degenerative changes of the thoracic spine. No acute cardiopulmonary disease process is seen. Electronically Signed: Jeffery Nguyen MD at 17:55 EST , Service support ,
--- NOTE | 2020-01-31 18:28 | ED.DCSUM_ITS ---
- ER Visit Summary Date of Service: 01/31/20 Chief Complaint: Cough and congestion History of Present Illness: The patient is a [address] Jossue Ivory. Patient has a cough and congestion that began approximately 1 week ago. He denies any fever or chills. He reports he has very little difficulty breathing. Cough is productive of white sputum without blood. Physical Examination: Vitals: Stable. Afebrile. General: Well-nourished and well-developed. Head: Normocephalic atraumatic. Neck: Supple, no lymphadenopathy. No JVD. Nontender. Cardiovascular: Regular rate and rhythm. No murmurs. Respiratory: No respiratory distress. Clear to auscultation bilaterally. Abdominal: Soft, nontender, nondistended, normal bowel sounds. No guarding, rebound, or peritoneal signs. Back: Nontender. Extremities: Nontender, no edema. Skin: Normal color, no rash. Neurologic: Alert and oriented ?3. Cranial nerves II through XII are intact. Normal strength and sensation. Psych: Normal affect. Test Results: Chest x-ray shows no acute disease. Emergency Department Course and Treatment: Patient's main complaint is congestion. He will be discharged with Zyrtec. Treatment Plan: Instructed to follow-up his primary care physician 1 week if not improving. Return to the emergency department for any worsening symptoms. Disposition: To home in improved and stable condition. Impression: 1. URI. This note was generated with [employer] dictation software. It may contain incorrect words, spelling, and punctuation that were not noted in review of the chart prior to signing ED Disposition - Plan for ED Patient: Disposition: Home or Assisted Living Instructions: BRONCHITIS, No Antibiotic (Adult) Prescriptions: Cetirizine HCl [Zyrtec] 10 mg PO DAILY #14 cap Prescription Printed Referrals: Jossue Anderson MD [Primary Care Provider] - 1 Week
[2020-01-31 18:37] VITALS: BP 151/82; PULSE 81; RESP 18; O2SAT 97
== END 2020-01-31 18:38 | disposition home or self-care (01) ==
LOC: ED 17:53
PROVIDERS: Emergency Provider Emergency Medicine; PCP Family Medicine
DX: J06.9 Acute upper respiratory infection, unspecified (principal); Z87.891 Personal history of nicotine dependence; I25.2 Old myocardial infarction
CPT/HCPCS: 71046; 99282

== ENCOUNTER 2020-02-12 14:30 | Outpatient (RCR) | payer MEDICARE, MEDICAID, SELFPAY ==
[2019-11-23 16:00] VITALS: BMI 32.5
--- NOTE | 2020-02-03 15:44 | HP.OTEVAL_ITS ---
Patient's Visit Information ERNST LEVY is a 64 year old M, referred to Occupational Therapy by Jossue Anderson MD, with a diagnosis of L 3rd digit trigger finger. Date of Evaluation: 02/03/20 Occupational Therapist: Ely Perla - Subjective Subjective: Pt seen for initial occupational therapy evaluation for increased pain L 3rd digit trigger finger. Pt states he has had this pain for a few months and its not getting any better. 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 His L hand middle finger MP joint bothers him with his job. Pt states he had a shot in his R middle finger MP about a year ago because of pain and now is doing much better. Pt states right hand dominent. Ernst Hernandez lives [place]. Hobbies include crochette, drawing, art work. - Pain L middle finger MP joint 2 Pain Intensity Range: 2 - Objective Objective/Observation: Pt demo increased pain to move L MF MP joint. - ROM ROM Comments: Pt demo bilateral hand AROM WFL, able to make composite fist and touch each finger to thumb. 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 Goal:: Pt will demo no pain greater than 1/10 with movement of L middle finger by d/c from OT services Goal:: Pt will be educated on joint protection and energy conservation, use of modalities as needed with good understanding and demo 75%x. Goal:: Pt will be educated on L UE HEP with good understanding and demo 75%x. - Rehabilitation General Assessment: Pt seen for initial occupational therapy for L 3rd digit trigger finger. Pt demo decreased miniature model maker strength L hand and increased pain with movement of L hand. Pt would benefit from direct occupational therapy to decrease pain L hand, educate on L UE HEP, increase L hand miniature model maker strength to increase pts quality of life 1-2x/wk x 4wks Rehabilitation Potential: Excellent - Anticipated Interventions Anticipated Interventions: Strengthening, Massage, Modalities, Orthoses, Joint Protection/Energy Conservation, Fine Motor Coord/Mauricio, Education re Diagnosis, Education re Self-Bandaging Techniques, Education re Self Massage Techniques, Education re Correct Donning Tech,Care&Wearing Sched Comp Garments, Caregiver Training, Home Program - Visit Plan Frequency: 1-2x /Week Duration: 4 Weeks General Plan: educate on L UE HEP, joint protection, decrease pain L middle finger with flexion, increase L UE miniature model maker strength TEXT: Thank you for the opportunity to evaluate your patient. For Medicare and Medicare HMO plans, please review the plan of care and approve it. It will need to be FAXED BACK to us at [phone] for Medicare purposes. Please let me know if there are questions or concerns regarding this plan of care. Physician Signature: Date:
--- NOTE | 2020-08-03 15:35 | HP.OT.NRP ---
NANCY LEVY was seen in my office for initial evaluation on 02/03/20. The following Plan of Care was established for this patient: Initial Frequency: 1-2x /Week Initial Duration: 4 Weeks Plan: cont POC Anticipated Interventions: Strengthening, Massage, Modalities, Orthoses, Joint Protection/Energy Conservation, Fine Motor Coord/Mauricio, Education re Diagnosis, Education re Self-Bandaging Techniques, Education re Self Massage Techniques, Education re Correct Donning Tech,Care&Wearing Sched Comp Garments, Caregiver Training, Home Program This patient was last seen in our office 02/12/20. Pertinent comments regarding their Occupational therapy will appear below: pt was seen for 8 OT visits. Pts last two apts were cancelled or No show- pt was making gins in ROM with out triggering at that time. Due to time lapse in services pt d/c at this time. At this point I will be discontinuing this patient from occupational therapy. I would be happy to see this patient again in the future if found appropriate by the physician. Thank you! Aleida River, OTR/L, CHT
== END 2020-02-12 19:00 | disposition home or self-care (01) ==
LOC: OT 14:30
PROVIDERS: PCP Family Medicine; Referring Provider Family Medicine; Visit Provider Family Medicine
DX: M65.332 Trigger finger, left middle finger (principal)
CPT/HCPCS: 97035; 97165; 97166; 97530; 97760

== ENCOUNTER → 2020-09-14 17:23 | Outpatient (CLI) | payer MEDICARE, MEDICAID, SELFPAY ==
[2020-09-14 18:03] LABS: Absolute Lymphocyte Count 1.99 X10^3/uL (0.83-4.51); Absolute Neutrophil Count 4.3 X10^3/uL (2.0-7.7); Basophil# 0.04 X10^3/uL; Basophil% 0.6 % (0-1); Eosinophil# 0.21 X10^3/uL; Eosinophils% 2.9 % (0-5); Hematocrit 44.5 % (40-54); Hemoglobin 14.6 g/dL (13.0-16.5); Lymphocyte # 1.99 X10^3/ul (4.0); Lymphocyte % 27.4 % (19-41); Mean Corp Hgb Conc 32.8 g/dL (32-36); Mean Corpuscular Volume 88.5 fL (80-94); Monocyte# 0.67 X10^3/uL; Monocyte% 9.2 % (0-10); NRBC Flagged by Analyzer 0 % (0-5); Neutrophil # 4.31 X10^3/uL (2.7-7.7); Neutrophil % 59.5 % (47-70); Platelet Count 220 K/mm3 (150-450); RBC Distribution Width CV 12.9 % (11.6-14.6); RBC Distribution Width SD 41.9 fl (35.1-43.9); Red Blood Count 5.03 M/mm3 (4.6-6.2); White Blood Count 7.3 K/mm3 (4.4-11.0)
[2020-09-14 18:44] LABS: ALB/GLOB Ratio 1.4 RATIO (0.9-2.4); AST(SGOT) 42 U/L (15-37); Alanine Aminotransfer ALT/SGPT 45 U/L (16-61); Albumin, Serum 4.2 g/dL (3.2-5.0); Alkaline Phosphatase 73 U/L (45-117); Anion Gap 4 (5-15); BUN 10 mg/dL (7-18); BUN/Creat Ratio 11.6 RATIO (10-20); Calcium,Total 8.6 mg/dL (8.5-10.1); Chloride 99 mmol/L (98-107); Creatinine, Serum 0.86 mg/dL (0.70-1.30); EST Glomerular Filtration Rate 95 mL/min (>60); Est Glom Filt Rate - Afr Amer 115 mL/min (>60); Glucose 98 mg/dL (74-106); Protein, Total 7.2 g/dL (6.4-8.2); Sodium Level 132 mmol/L (136-145); Thyroid Stim Hormone (TSH) 0.85 uIU/mL (0.358-3.74)
[2020-09-15 10:45] LABS: Hepatitis C Antibody Non-Reactive (Nonreactive); Vitamin D,25 Hydroxy 39.6 ng/mL
== END ==
PROVIDERS: PCP Family Medicine; Referring Provider Family Medicine Geriatric Medicine; Visit Provider Family Medicine Geriatric Medicine
DX: E55.9 Vitamin D deficiency, unspecified (principal); I10 Essential (primary) hypertension; Z12.5 Encounter for screening for malignant neoplasm of prostate; Z13.89 Encounter for screening for other disorder
CPT/HCPCS: 36415; 80053; 82306; 84153; 84443; 85025; 86803; G0103

== ENCOUNTER → 2020-10-24 15:59 | Outpatient (CLI) | payer MEDICARE, MEDICAID, SELFPAY ==
--- NOTE | 2020-10-24 16:03 | RAD_ITS ---
STUDY: X-RAY - PELVIS AND LEFT HIP REASON FOR EXAM: Male, 65 years old. LEFT LEG PAIN FROM KNEE UP TO HIP. NO INJURY. TECHNIQUE: 3 views of the pelvis and hip. COMPARISON: None. FINDINGS: There is a non-specific bowel gas pattern. Normal visualized soft tissue structures. Normal bilateral iliac wings, sacroiliac joints and visualized sacrum. Normal bilateral superior and inferior pubic rami. Normal pubic symphysis. Normal bilateral ischial tuberosities. Normal visualized femoral head. Mild spurring at the acetabulum. Narrowed hip joint. RAD/HIP, UNI W/ Pelvis 2-3 Views IMPRESSION: Degenerative changes at the left hip. Electronically Signed: Dar Keyes DO at 17:24 EST Tel [phone], Service support ,
== END ==
PROVIDERS: PCP Family Medicine Geriatric Medicine; Referring Provider Family Medicine Geriatric Medicine; Visit Provider Family Medicine Geriatric Medicine
DX: M25.559 Pain in unspecified hip (principal)
CPT/HCPCS: 73502

== ENCOUNTER 2020-12-14 13:00 | Outpatient (RCR) | payer MEDICARE, MEDICAID, SELFPAY ==
--- NOTE | 2020-11-02 14:06 | HP.PTEVAL_ITS ---
Patient's Visit Information NANCY LEVY is a 65 year old M referred to Physical Therapy by Dr. Ayad Brown MD with a diagnosis of L hip pain. Date of Evaluation: 11/02/20 Physical Therapist: Jonathon Oliveira, PT, ATC - Visit Plan Frequency: 2-3x /Week Duration: 4-6 Weeks Plan: Postural edu, SKTC/DKTC, core stab ex's, B LE strengthening, stair negotiation, gait training, hep - Subjective Pt reports L hip has been sore for the last 4-5 years with unknown origon. Pt reports he had xrays which revealed OA of the L hip. Pt reports his pain can become severe at times. Pt reports bending his legs will case pain at times. Pt reports no stairs at home. Pt reports he used to play basketball but cant anymore secondary to pain. Pt also notes he cant squat down secondary to pain. Pt reports his pain is on the posterior aspect of L hip that extends to his LB. Pt also notes limitations with prolonged standing secondary to pain. Pt reports occasional tingling and burning past the knee. 0/10 pain at rest, 9/10 at worst (prolonged ambulation) - Pain L hip Pain Intensity (Out of 10): 0 Pain Intensity Range: 9 - Objective Neuro: B L3-4 dermatones are hyposensitive to light touch. All other B LE sensation is WNL to light touch. B patellar reflex= 1/3. L/S ROM: Ext is severely limited and causes radiculopathy. Flex is WNL but causes radiculopathy. B SB is WNL. Hip ROM: B hip IR/ER are minimally limited. All other motions are WFL. LE MMT: B LE's are grossly 4+/5 throughout. Gait: Pt is able to ambulate approximately 130 feet until reportsing increased LBP and wanting to stop. - Goals Goal 1:: Increase B LE strength x 1 grade to aid with squatting activity Goal Time Frame: 4-6 Weeks Goal 2:: Pt will be able to ambulate greater than 680 feet toa id with community ambulation Goal Time Frame: 4-6 Weeks Goal 3:: Decrease LBP x 50% to aid with sleep. Goal Time Frame: 4-6 Weeks Goal 4:: I with HEP Goal Time Frame: 4-6 Weeks - Rehabilitation Potential Physical Therapy Diagnosis: Pt has L hip pain, LE weakness, and limited L/S ROM secondary to degenerative changes in L/S Rehabilitation Potential: Good - Anticipated Interventions Patient/Client Instruction: Educate patient on: Condition, Plan of Care For the Purpose of:: To improve self management Therapeutic Exercise to Include: Strength training, Endurance training, Balance training, Body mechanics, Gait and locomotor training, Dynamic Lumbar Stabilization For the Purpose of:: To decrease pain, To increase ROM, To improve muscle performance and motor function Thank you for the opportunity to evaluate your patient. For Medicare and Medicare HMO plans, please review the plan of care and approve it. It will need to be FAXED BACK to us at [phone] for Medicare purposes. For Medicare only, by signing this I certify the plan of care. Please let me know if there are questions or concerns regarding this plan of care. Physician Si gnature: Date:
--- NOTE | 2020-12-14 13:55 | HP.PTDCSUM ---
It has been my pleasure to treat NANCY LEVY referred by Dr. Ayad Brown MD, with the diagnosis of L hip pain for a total of 11 visit(s). Discharge Date: Please see the following information for a summary of their discharge status. Subjective: Pt is ready for discharge this date L hip Pain Intensity (Out of 10): 0 % Improvement: 90 Objective/Function: Pt reports 0/10 pain. B LE strength is now 5/5 throughout. Pt is now able to ambulate greater than 680' without difficulty. No LBP this date. Pt is I with HEP. Rx goals achieved Goal 1:: Increase B LE strength x 1 grade to aid with squatting activity Goal Progress: Goal Met Goal 2:: Pt will be able to ambulate greater than 680 feet toa id with community ambulation Goal Progress: Goal Met Goal 3:: Decrease LBP x 50% to aid with sleep. Goal Progress: Goal Met Goal 4:: I with HEP Plan: Discharge If there are questions or concerns regarding this patient's physical therapy, please feel free to call me at [phone]. Thank you for the referral of this patient. Sincerely, Jonathon Oliveira, PT, ATC
== END 2020-12-14 19:00 | disposition home or self-care (01) ==
LOC: PT 13:00
PROVIDERS: PCP Family Medicine Geriatric Medicine; Referring Provider Family Medicine Geriatric Medicine; Visit Provider Family Medicine Geriatric Medicine
DX: M25.559 Pain in unspecified hip (principal)
CPT/HCPCS: 97110; 97161; 97164

== ENCOUNTER 2021-02-23 18:49 | Emergency (ER) | payer MEDICARE, MEDICAID, SELFPAY ==
[2021-02-23 18:50] VITALS: BP 150/85; PULSE 88; RESP 16; TEMP 36.3; O2SAT 96; BMI 30.9
[2021-02-23] MEDS: HYDROcodone Bitartrate/Apap 5/325 Tablet PO (19:18)
--- NOTE | 2021-02-23 19:21 | RAD_ITS ---
INDICATION: Injury/Pain EXAMINATION/TECHNIQUE: X-RAY - RIGHT XR Hand Min 3 Views COMPARISON: None. FINDINGS: No acute fracture or malalignment. No blastic or lytic lesions. Mild scattered degenerative changes are seen. The soft tissues are unremarkable. RAD/Hand Min 3 Views IMPRESSION: No acute radiographic abnormalities. Mild scattered degenerative changes of the hand and wrist. Electronically Signed: Nima Le MD at 19:45 EDT Tel , Service support ,
--- NOTE | 2021-02-23 19:31 | ED.VIS.GEN ---
History of Present Illness Chief Complaint: Upper Extremity Injury Informant: Patient Onset: Today Context: Sudden Onset Timing: Continuous Quality: Pain Location: Right hand Current Severity: Mild Maximum Severity: Moderate Worsened by: Use Relieved by: Better with rest Associated Symptoms: No associated symptoms Narrative: Patient is a 65-year-old [id number] male presents with injury to his right hand. Sustained blunt trauma playing basketball. He complains of pain over the MCP joint of the ring and little finger. He denies paresthesia, anesthesia medics. He denies any other injury. Prior similar symptoms: No Recent Illness/Hospitalization: No - Past Medical History (1) Unknown past medical history Status: Acute Past Medical History - Allergies and Home Meds Allergies/Adverse Reactions: Allergies Penicillins [PCN] Allergy (Verified 02/23/21 18:50) Anaphylaxis Primary Care Physician: Ayad Brown Chi, MD [Primary Care Provider] - Prior records reviewed: No Surgical History: no surgical history Lives: Alone Smoking Status: Former smoker Alcohol: None Drugs: None - Family History Maternal Family History: Reports: Cancer Paternal Family History: Reports: Cancer Review of Systems Musculoskeletal: Reports: Swelling, Extremity Pain. Denies: Myalgias, Arthralgias Skin: Denies: Rash, Abscess, Wounds Neurological: Denies: Weakness, Parasthesia, Numbness Hematologic: Denies: Easy bruising, Easy bleeding Physical Exam Vital Signs/Narrative: Vital Signs Temp Pulse Resp BP Pulse Ox 02/23/21 18:50 97.4 F L 88 16 150/85 H 96 Inital Vital Signs reviewed: Yes General: Well nourished, Well developed, Obese, No Acute Distress Head: Normocephalic, Atraumatic Eyes: Perrl, EOMI. Negative for: Pale conjunctiva, Scleral icterus Neck: Supple, Nontender, No lymphadenopathy, No JVD Cardiovascular: Regular rate, Regular rhythm, No murmurs Respiratory: No distress, CTA bilaterally Extremities: Tenderness - There is swelling. There is pain the patient over the distal fifth metacarpal bone. There may be mild rotational malalignment. Median, radial and ulnar function intact. There is no subungual hematoma noted.. Negative for: Nontender Skin: Normal color, No rash, Trauma - Bruising noted Neurological: Alert, Oriented x3, Cranial nerves II-XII grossly intact, Normal Strength, Normal Sensation Psychological: Normal affect Diagnostic/Tx/Re-eval Chest X-Ray - ED: Read by ED Physician - Three-view x-ray of the hand is negative for fracture, subluxation, dislocation or foreign body. - Medical Decision Making X-ray of the hand to rule out fracture versus contusion. ED Disposition - Plan for ED Patient: Disposition: Home or Assisted Living Diagnosis: Contusion of right hand, initial encounter Instructions: ED Hand Contusion Referrals: Ayad Brown Chi, MD [Primary Care Provider] - 10-14 Days if not better
== END 2021-02-23 20:14 | disposition home or self-care (01) ==
PROVIDERS: Emergency Provider Emergency Medicine; PCP Family Medicine Geriatric Medicine
DX: S60.221A Contusion of right hand, initial encounter (principal); E66.9 Obesity, unspecified; Z87.891 Personal history of nicotine dependence; Y93.67 Activity, basketball
CPT/HCPCS: 73130; 99282

== ENCOUNTER → 2021-03-16 13:51 | Outpatient (CLI) | payer MEDICARE, MEDICAID, SELFPAY ==
[2021-02-23 18:50] VITALS: BMI 30.9
[2021-03-16 15:47] LABS: Absolute Lymphocyte Count 1.87 X10^3/uL (0.83-4.51); Absolute Neutrophil Count 4.3 X10^3/uL (2.0-7.7); Basophil# 0.04 X10^3/uL; Basophil% 0.6 % (0-1); Eosinophil# 0.14 X10^3/uL; Hematocrit 46.3 % (40-54); Lymphocyte # 1.87 X10^3/ul (0.83-4.51); Lymphocyte % 27.2 % (19-41); Mean Corp Hgb Conc 32.4 g/dL (32-36); Mean Corpuscular Hgb 28.3 pg (27.0-32.0); Mean Corpuscular Volume 87.4 fL (80-94); Monocyte# 0.54 X10^3/uL; Monocyte% 7.8 % (0-10); NRBC Flagged by Analyzer 0 % (0-5); Neutrophil # 4.26 X10^3/uL (2.7-7.7); Platelet Count 229 K/mm3 (150-450); RBC Distribution Width CV 13.4 % (11.6-14.6); RBC Distribution Width SD 43.2 fl (35.1-43.9); White Blood Count 6.9 K/mm3 (4.4-11.0)
[2021-03-16 16:00] LABS: Vitamin D,25 Hydroxy 23.7 ng/mL
[2021-03-16 16:20] LABS: ALB/GLOB Ratio 1.3 RATIO (0.9-2.4); AST(SGOT) 32 U/L (15-37); Alanine Aminotransfer ALT/SGPT 37 U/L (16-61); Albumin, Serum 4.1 g/dL (3.2-5.0); Alkaline Phosphatase 86 U/L (45-117); Anion Gap 5 (5-15); BUN 7 mg/dL (7-18); BUN/Creat Ratio 7.4 RATIO (10-20); Calcium,Total 8.8 mg/dL (8.5-10.1); Chloride 102 mmol/L (98-107); Creatinine, Serum 0.94 mg/dL (0.70-1.30); EST Glomerular Filtration Rate 86 mL/min (>60); Est Glom Filt Rate - Afr Amer 103 mL/min (>60); Globulin 3.1 g/dL (2.2-4.2); Glucose 106 mg/dL (74-106); Potassium 4.1 mmol/L (3.5-5.1); Protein, Total 7.2 g/dL (6.4-8.2); Sodium Level 134 mmol/L (136-145); Thyroid Stim Hormone (TSH) 0.53 uIU/mL (0.358-3.74)
== END ==
PROVIDERS: PCP Family Medicine Geriatric Medicine; Visit Provider Family Medicine Geriatric Medicine
DX: E55.9 Vitamin D deficiency, unspecified (principal); I10 Essential (primary) hypertension
CPT/HCPCS: 36415; 80053; 82306; 84443; 85025

== ENCOUNTER → 2021-04-04 12:06 | Outpatient (CLI) | payer MEDICARE, MEDICAID, SELFPAY ==
--- NOTE | 2021-04-04 10:00 | LES_PTH ---
PATIENT: NANCY LEVY LOC: [facility] U#:[id number] AGE/SX: 70/M ROOM: RE04/04/[address]: Dr. Ayad Brown MD : 1955 BED: DIS: SPEC #: [id number] RECD: 04/04/21 12:22 STATUS: SAMEERA JENNIFER #: [id number] SHARON: 04/04/21 10:[address]: Ayad Brown Chi DEPT: SURGICAL PATHOLOGY RECD BY: Eva Ortiz Tissues: Skin of abdomen, NOS Procedures: Surgery Specimen Level III HEADER OPERATION: Abdomen punch biopsy PRE-OP DIAGNOSIS: Abdomen TISSUE SUBMITTED: Abdomen punch biopsy MICROSCOPIC DIAGNOSIS Abdomen, punch biopsy: Consistent with fibroepithelial polyp (skin tag). Focal changes consistent with epidermal inclusion cyst. See comment. SJ:ella 04/05/2021 COMMENT This case is discussed with Dr. Brown on 04/05/2021. Case has been reviewed in consultation with Dr. Poole who concurs with the above diagnosis. IDC:AM MICROSCOPIC DESCRIPTION Slides are reviewed. GROSS DESCRIPTION Received in fixative is one container labeled with the patient's name and designated abdomen. The specimen consists of a punch biopsy of fritz-white skin measuring 0.3 cm in diameter and 0.2 cm in length. The specimen is totally submitted in one cassette. / SJ:ella 04/04/21 TC:5 CPT: 96121
== END ==
LOC: POLAB3 12:09 → LABSPEC 12:16
PROVIDERS: PCP Family Medicine Geriatric Medicine; Visit Provider Family Medicine Geriatric Medicine
DX: L98.9 Disorder of the skin and subcutaneous tissue, unspecified (principal)
CPT/HCPCS: 88304; 88305

== ENCOUNTER 2021-04-14 10:56 | Emergency (ER) | payer MEDICARE, MEDICAID, SELFPAY ==
[2021-04-14 10:57] VITALS: BP 153/77; PULSE 80; RESP 16; TEMP 36.3; O2SAT 98; BMI 32.1
--- NOTE | 2021-04-14 11:16 | RAD_ITS ---
STUDY: X-RAY - LEFT FOOT CLINICAL: Male, 65 years old. Foot injury. Pain of the third and fourth toes. TECHNIQUE: 3 view(s) of the foot. COMPARISON: None. FINDINGS: There is a plantar calcaneal spur. Findings suggestive of an avulsion fracture along the dorsal aspect of the cuneiform bone. Normal metatarsi. Normal metatarsophalangeal joint of the great toe. Normal tibial and fibular sesamoid bones. Normal interphalangeal joint of the great toe. Normal phalanges of the great toe. Normal second through fifth metatarsophalangeal joints. Normal interphalangeal joints and phalanges of the lesser toes. Soft tissue swelling. There is a 3.5 mm rounded metallic BB in the plantar aspect underlying the distal first metatarsal. RAD/Foot min 3 Views IMPRESSION: Impression normal fracture of the dorsal aspect of the first cuneiform bone. Metallic BB in the plantar soft tissues underlying the distal portion of the first metatarsal. Electronically Signed: Antonio Uribe MD at 12:05 EDT , Service support ,
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
[2021-04-14 12:03] VITALS: BP 141/87; PULSE 70; RESP 16; O2SAT 98
--- NOTE | 2021-04-14 12:04 | ED.RN ---
PT EDUCATED ON WRITTEN AND VERBAL DISCHARGE INSTRUCTIONS AND HOME GOING PRESCRIPTIONS. PT EDUCATE ON CARE OF TOE FRACTURES, USING THE POST OP SHOE AND TO CALL PCP FOR FOLLOW UP. EDUCATED NOT TO DRIVE WHEN TAKING [place]. PT VERBALIZES UNDERSTANDING AND DENIES ANY FURTHER QUESTIONS. PT AMBULATES OUT OF DEPT ALONE.
== END 2021-04-14 12:06 | disposition home or self-care (01) ==
LOC: ED 11:42
PROVIDERS: Emergency Provider Emergency Medicine; PCP Family Medicine Geriatric Medicine
DX: S92.912A Unspecified fracture of left toe(s), initial encounter for closed fracture (principal); V19.9XXA Pedal cyclist (driver) (passenger) injured in unspecified traffic accident, initial encounter; Y93.9 Activity, unspecified; Y92.89 Other specified places as the place of occurrence of the external cause; Y99.8 Other external cause status; I10 Essential (primary) hypertension; E03.9 Hypothyroidism, unspecified; Z79.1 Long term (current) use of non-steroidal anti-inflammatories (NSAID); Z79.82 Long term (current) use of aspirin; Z87.891 Personal history of nicotine dependence
CPT/HCPCS: 73630; 99283

== ENCOUNTER 2021-06-05 11:20 | Emergency (ER) | payer MEDICARE, MEDICAID, SELFPAY ==
[2021-06-05 11:20] VITALS: BP 167/99; PULSE 93; RESP 17; TEMP 36.9; O2SAT 96; BMI 32.7
--- NOTE | 2021-06-05 11:31 | RAD_ITS ---
STUDY: X-RAY - LUMBAR SPINE REASON FOR EXAM: Male, 65 years old. Back pain TECHNIQUE: 2 view(s) of the lumbar spine were obtained. COMPARISON: 2015 FINDINGS: There is straightening of the normal lumbar lordosis. There is no substantial scoliosis. There is a normal alignment of the vertebrae. There is diffuse demineralization with multi-level endplate spondylosis. There is multi-level degenerative disc disease with multi-level disc space narrowing. There is no demonstrated fracture. There is atherosclerotic calcification of the abdominal aorta without a demonstrated aneurysm. RAD/Lumbar Spine 2 or 3 Views IMPRESSION: Degenerative changes of the spine, as detailed above. Electronically Signed: Vinay Caba MD at 12:15 EDT , Service support ,
--- NOTE | 2021-06-05 11:32 | ED.VIS.BACK ---
HPI History of Present Illness Chief Complaint: Back Narrative Narrative: Patient presenting with lower back pain. He states is has been hurting him since this morning. He denies any traumatic injury. No loss of bladder or bowel control. No saddle paresthesias he has no GI complaints. No urinary complaints. Patient states that this morning he had trouble tying his shoe but now he is able to ambulate. [facility] Medical History Hypertension Hypothyroid Home Medications aspirin 325 mg PO DAILY 11/23/19 [History Last Taken 11/23/19] benztropine 2 mg PO DAILY 11/23/19 [History Last Taken 11/23/19] budesonide-formoterol 1 puff IH BID 11/23/19 [History Last Taken 11/23/19] cholecalciferol (vitamin D3) 1,000 unit PO DAILY 11/23/19 [History Last Taken 11/23/19] docusate sodium 200 mg PO DAILY 11/23/19 [History Last Taken 11/22/19] doxycycline monohydrate 100 mg PO BID 11/23/19 [History Last Taken 11/23/19] gabapentin 300 mg PO TID 11/23/19 [History Last Taken 11/23/19] levothyroxine 150 mcg PO DAILY 11/23/19 [History Last Taken 11/22/19] lisinopril 20 mg PO DAILY 11/23/19 [History Last Taken 11/23/19] lorazepam 0.5 mg PO BID PRN 11/23/19 [History Last Taken 11/23/19] lorazepam 1 mg PO BID 11/23/19 [History Last Taken 11/23/19] meloxicam 15 mg PO DAILY 11/23/19 [History Last Taken 11/23/19] lpehcuso-tng-RK-lycopen-lutein 1 tab PO DAILY 11/23/19 [History Last Taken 11/23/19] mupirocin 1 applicatio TOPICAL BID 11/23/19 [History Last Taken 11/23/19] omeprazole 20 mg PO DAILY 11/23/19 [History Last Taken 11/23/19] simvastatin 20 mg PO DAILY 11/23/19 [History Last Taken 11/22/19] trazodone 100 mg PO DAILY 11/23/19 [History Last Taken 11/22/19] cetirizine 10 mg PO DAILY #14 cap 01/31/20 [Rx Last Taken Unknown] hydrocodone-acetaminophen 1 tab PO Q6H PRN PRN 3 Days #12 tablet 04/14/21 [Rx Last Taken Unknown] cyclobenzaprine 10 mg PO TID PRN #20 tablet 06/05/21 [Rx Last Taken Unknown] Allergy/AdvReac Type Severity Reaction Status Date / Time Penicillins [PCN] Allergy Anaphylaxis Verified 06/05/21 11:21 Social History Smoking Status: Former smoker substance use type: does not use ROS ROS ED Constitutional Constitutional ED: Denies chills, fever(s) or sweats Eyes Eyes: Denies blurry vision or change in vision ENT ENT ED: Denies rhinorrhea or sore throat Cardiovascular Cardiovascular: Denies chest pain or palpitations Respiratory/Chest Respiratory/Chest: Denies dyspnea or sputum Gastrointestinal Gastrointestinal: Denies abdominal pain, constipation, diarrhea, nausea or vomiting Genitourinary Genitourinary ED: Denies dysuria, hematuria or urinary frequency Musculoskeletal Musculoskeletal: Reports back pain; Denies neck pain Integumentary Denies abscess or rash Neurologic Neurologic: Denies headache(s) or weakness Psychiatric Psychiatric: Denies anxiety or depression EXAM Physical Exam Const Vital Signs: 06/05/21 11:20 Temperature 98.4 F Temperature Source Temporal Pulse Rate 93 Respiratory Rate 17 Blood Pressure 167/99 H Blood Pressure Mean 121 Pulse Ox 96 Oxygen Delivery Method Room Air Positive well nourished General Appearance ED: NAD HEENT Reports moist mucous membranes Negative for trauma Eyes PERRL and EOMs intact bilaterally Resp normal respiratory effort and clear to auscultation bilaterally Cardio regular rate and regular rhythm Back/Spine Back/Spine Narrative: Bilateral lumbar paraspinal muscular tenderness. There is no midline spinal deformity or step-off. Extremity normal to inspection General Extremety ED: Negative for tenderness Psych mental status grossly normal Skin no rashes or lesions noted and no wounds MDM MDM MDM Narrative Medical decision making narrative: Patient presenting with back pain. He was given a Flexeril on arrival. I obtained images of the lumbar spine which on my interpretation show degenerative changes with no acute bony abnormalities. The radiologist does agree. Patient was given a prescription for Flexeril however he was cautioned not to use this medication in conjunction with his pain medication or Ativan. He acknowledged understanding. Patient stable at discharge. Impression: 1. Acute lumbar strain Radiography Diagnostic Testing: Radiology Impression Lumbar Spine X-Ray 06/05/21 11:31 IMPRESSION: Degenerative changes of the spine, as detailed above. Electronically Signed: Vinay Caba MD at 12:15 EDT , Service support , Discharge Plan Triage Chief Complaint: Back ED Provider: Delroy Hayes Dx/Rx/DC Orders Instructions: ED Back Pain (Acute or Chronic) Prescriptions: New cyclobenzaprine 10 mg tablet 10 mg PO TID PRN (Reason: Muscle Spasm) Qty: 20 RF: 0 No Action meloxicam 15 tablet 15 mg PO DAILY RF: 0 lisinopril 20 tablet 20 mg PO DAILY RF: 0 lorazepam 0.5 tablet 0.5 mg PO BID PRN (Reason: Anxiety) RF: 0 trazodone 100 tablet 100 mg PO DAILY RF: 0 simvastatin 20 tablet 20 mg PO DAILY RF: 0 levothyroxine 150 MCG tablet 150 mcg PO DAILY RF: 0 benztropine 2 tablet 2 mg PO DAILY RF: 0 gabapentin 300 capsule 300 mg PO TID RF: 0 omeprazole 20 capsule,delayed release(DR/EC) 20 mg PO DAILY RF: 0 lorazepam 1 tablet 1 mg PO BID RF: 0 budesonide-formoterol 0 inhaler 1 puff IH BID RF: 0 aspirin 325 MG tablet,delayed release (DR/EC) 325 mg PO DAILY RF: 0 docusate sodium 100 MG capsule 200 mg PO DAILY RF: 0 cholecalciferol (vitamin D3) 1,000 UNIT tablet 1,000 unit PO DAILY RF: 0 jxfxpgia-oet-DZ-lycopen-lutein 1 EACH tablet 1 tab PO DAILY RF: 0 doxycycline monohydrate 100 capsule 100 mg PO BID RF: 0 mupirocin 2 ointment 1 applicatio topical BID RF: 0 cetirizine 10 MG capsule 10 mg PO DAILY Qty: 14 RF: 0 hydrocodone-acetaminophen [hydrocodone-acetaminophen] 1 TABLET tablet 1 tab PO Q6H PRN PRN (Reason: Pain) 3 Days Qty: 12 RF: 0 Primary Care Provider: Ayad Brown Chi Referrals: Ayad Brown Chi, MD [Primary Care Provider] - Disposition Disposition: Home, Self Care Discharge Date/Time: 06/05/21 12:32
[2021-06-05] MEDS: cycloBENZAPRine HCl 10 MG Tablet PO (11:42)
[2021-06-05 12:31] VITALS: BP 138/77; PULSE 62; RESP 15; TEMP 36.1
== END 2021-06-05 12:32 | disposition home or self-care (01) ==
PROVIDERS: Emergency Provider Student in an Organized Health Care Education/Training Program; PCP Family Medicine Geriatric Medicine
DX: S39.012A Strain of muscle, fascia and tendon of lower back, initial encounter (principal); X58.XXXA Exposure to other specified factors, initial encounter; Z87.891 Personal history of nicotine dependence
CPT/HCPCS: 72100; 99282

== ENCOUNTER → 2021-06-13 15:23 | Outpatient (CLI) | payer MEDICARE, MEDICAID, SELFPAY ==
[2021-06-05 11:20] VITALS: BMI 32.7
[2021-06-13 17:15] LABS: Basophil# 0.04 X10^3/uL; Basophil% 0.5 % (0-1); Eosinophil# 0.19 X10^3/uL; Eosinophils% 2.3 % (0-5); Hematocrit 46.1 % (40-54); Hemoglobin 15.2 g/dL (13.0-16.5); Lymphocyte % 27.5 % (19-41); Mean Corpuscular Hgb 28.6 pg (27.0-32.0); Mean Corpuscular Volume 86.8 fL (80-94); Mean Platelet Vol. 8.9 fl (6.2-12.0); Monocyte# 0.77 X10^3/uL; Monocyte% 9.2 % (0-10); NRBC Flagged by Analyzer 0 % (0-5); Neutrophil # 5.01 X10^3/uL (2.7-7.7); Platelet Count 238 K/mm3 (150-450); RBC Distribution Width CV 13.3 % (11.6-14.6); RBC Distribution Width SD 42.3 fl (35.1-43.9); Red Blood Count 5.31 M/mm3 (4.6-6.2); White Blood Count 8.4 K/mm3 (4.4-11.0)
[2021-06-13 17:44] LABS: ALB/GLOB Ratio 1.2 RATIO (0.9-2.4); AST(SGOT) 37 U/L (15-37); Alanine Aminotransfer ALT/SGPT 35 U/L (16-61); Alkaline Phosphatase 87 U/L (45-117); Anion Gap 10 (5-15); BUN 7 mg/dL (7-18); BUN/Creat Ratio 7.2 RATIO (10-20); Calcium,Total 8.3 mg/dL (8.5-10.1); Chloride 96 mmol/L (98-107); Creatinine, Serum 0.97 mg/dL (0.70-1.30); EST Glomerular Filtration Rate 82 mL/min (>60); Est Glom Filt Rate - Afr Amer 100 mL/min (>60); Globulin 3.2 g/dL (2.2-4.2); Glucose 79 mg/dL (74-106); Potassium 3.7 mmol/L (3.5-5.1); Protein, Total 7.2 g/dL (6.4-8.2); Sodium Level 132 mmol/L (136-145); Thyroid Stim Hormone (TSH) 1.05 uIU/mL (0.358-3.74)
== END ==
PROVIDERS: PCP Family Medicine Geriatric Medicine; Visit Provider Family Medicine Geriatric Medicine
DX: E55.9 Vitamin D deficiency, unspecified (principal); I10 Essential (primary) hypertension
CPT/HCPCS: 36415; 80053; 84443; 85025

== ENCOUNTER → 2021-06-28 13:34 | Outpatient (CLI) | payer MEDICARE, MEDICAID, SELFPAY ==
[2021-06-05 11:20] VITALS: BMI 32.7
--- NOTE | 2021-06-28 13:40 | RAD_ITS ---
STUDY: X-RAY - LUMBAR SPINE REASON FOR EXAM: Male, 65 years old. LOW BACK PAIN TECHNIQUE: 3 view(s) of the lumbar spine were obtained. COMPARISON: None FINDINGS: Normal lumbar lordosis. There is no substantial scoliosis. There is a normal alignment of the vertebrae. There is multilevel endplate spondylosis of the lumbar vertebrae. There is multi-level degenerative disc disease with multi-level disc space narrowing. Facet joint osteoarthritis. There is atherosclerotic calcification of the abdominal aorta without a demonstrated aneurysm. RAD/Lumbar Spine 2 or 3 Views IMPRESSION: Degenerative changes of the spine, as detailed above. Electronically Signed: Antonio Uribe MD at 22:02 EDT , Service support ,
== END ==
PROVIDERS: PCP Family Medicine Geriatric Medicine; Referring Provider Family Medicine Geriatric Medicine; Visit Provider Family Medicine Geriatric Medicine
DX: M54.5 Low back pain (principal)
CPT/HCPCS: 72100

== ENCOUNTER → 2021-09-19 14:45 | Outpatient (CLI) | payer MEDICARE, MEDICAID, SELFPAY ==
[2021-09-19 17:49] LABS: Absolute Lymphocyte Count 1.76 X10^3/uL (0.83-4.51); Absolute Neutrophil Count 5.1 X10^3/uL (2.0-7.7); Basophil# 0.03 X10^3/uL; Basophil% 0.4 % (0-1); Eosinophil# 0.11 X10^3/uL; Eosinophils% 1.5 % (0-5); Hematocrit 44.3 % (40-54); Hemoglobin 14.9 g/dL (13.0-16.5); Lymphocyte # 1.76 X10^3/ul (0.83-4.51); Lymphocyte % 23.3 % (19-41); Mean Corp Hgb Conc 33.6 g/dL (32-36); Mean Corpuscular Hgb 29.7 pg (27.0-32.0); Mean Corpuscular Volume 88.2 fL (80-94); Mean Platelet Vol. 9.3 fl (6.2-12.0); Monocyte# 0.54 X10^3/uL; Monocyte% 7.2 % (0-10); NRBC Flagged by Analyzer 0 % (0-5); Neutrophil # 5.07 X10^3/uL (2.7-7.7); Neutrophil % 67.2 % (47-70); Platelet Count 211 K/mm3 (150-450); RBC Distribution Width CV 13.4 % (11.6-14.6); RBC Distribution Width SD 43.6 fl (35.1-43.9); Red Blood Count 5.02 M/mm3 (4.6-6.2); White Blood Count 7.5 K/mm3 (4.4-11.0)
[2021-09-19 18:12] LABS: ALB/GLOB Ratio 1.2 RATIO (0.9-2.4); AST(SGOT) 35 U/L (15-37); Alanine Aminotransfer ALT/SGPT 41 U/L (16-61); Albumin, Serum 3.8 g/dL (3.2-5.0); Alkaline Phosphatase 77 U/L (45-117); Anion Gap 12 (5-15); BUN 8 mg/dL (7-18); BUN/Creat Ratio 7.4 RATIO (10-20); Calcium,Total 8.7 mg/dL (8.5-10.1); Chloride 98 mmol/L (98-107); Creatinine, Serum 1.08 mg/dL (0.70-1.30); EST Glomerular Filtration Rate 73 mL/min (>60); Est Glom Filt Rate - Afr Amer 88 mL/min (>60); Globulin 3.3 g/dL (2.2-4.2); Glucose 120 mg/dL (74-106); Potassium 3.6 mmol/L (3.5-5.1); Protein, Total 7.1 g/dL (6.4-8.2); Sodium Level 136 mmol/L (136-145); Thyroid Stim Hormone (TSH) 0.36 uIU/mL (0.358-3.74)
== END ==
PROVIDERS: PCP Family Medicine Geriatric Medicine; Visit Provider Family Medicine Geriatric Medicine
DX: E55.9 Vitamin D deficiency, unspecified (principal); I10 Essential (primary) hypertension; Z12.5 Encounter for screening for malignant neoplasm of prostate
CPT/HCPCS: 36415; 80053; 82306; 84153; 84443; 85025; G0103

== ENCOUNTER → 2021-10-13 08:53 | Outpatient (CLI) | payer MEDICARE, MEDICAID, SELFPAY | PROVIDERS: PCP Family Medicine Geriatric Medicine; Referring Provider Family Medicine Geriatric Medicine; Visit Provider Family Medicine Geriatric Medicine | DX: R06.89 Other abnormalities of breathing (principal) | CPT/HCPCS: 87635; 87804; 87807; C9803; U0005; U0003 ==

== ENCOUNTER → 2021-10-17 11:16 | Outpatient (CLI) | payer MEDICARE, MEDICAID, SELFPAY ==
--- NOTE | 2021-10-17 | LES_PTH ---
PATIENT: NANCY LEVY LOC: [facility] U#:[id number] AGE/SX: 70/M ROOM: RE10/17/[address]: Dr. Ayad Brown MD : 1955 BED: DIS: SPEC #: [id number] RECD: 10/17/21 13:26 STATUS: SAMEERA JENNIFER #: [id number] SHARON: 10/17/21 00:[address]: Ayad Brown Chi DEPT: SURGICAL PATHOLOGY RECD BY: Arsh Newman Tissues: A - Skin of arm B - Skin of arm Procedures: Surgery Specimen Level IV HEADER OPERATION: Biopsy PRE-OP DIAGNOSIS: L98.9 TISSUE SUBMITTED: A ? Left forearm, B ? Left forearm MICROSCOPIC DIAGNOSIS A. Skin lesion of left forearm, shave biopsy: Actinic keratosis and solar elastosis. B. Skin lesion of left forearm, shave biopsy: Actinic keratosis and solar elastosis. AM:ella 10/18/2021 MICROSCOPIC DESCRIPTION Slides are reviewed. GROSS DESCRIPTION A - Received in fixative is one container labeled with the patient's name and designated left forearm. The specimen consists of a shave biopsy of fritz-brown skin measuring 1 x 0.5 x 0.1 cm. The specimen is inked, sectioned and submitted entirely in one cassette. B - Received in fixative is one container labeled with the patient's name and designated left forearm. The specimen consists of a shave biopsy of fritz-brown skin measuring 0.7 x 0.7 x 0.1 cm. The specimen is inked, sectioned and submitted entirely in one cassette. / SJ:rg 10/17/21 TC:5 CPT: 33360 x2
== END ==
PROVIDERS: PCP Family Medicine Geriatric Medicine; Visit Provider Family Medicine Geriatric Medicine
DX: L98.9 Disorder of the skin and subcutaneous tissue, unspecified (principal)
CPT/HCPCS: 88305

== ENCOUNTER 2021-10-30 14:00 | Outpatient (RCR) | payer MEDICARE, MEDICAID, SELFPAY ==
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
--- NOTE | 2021-10-30 14:47 | HP.PTDCSUM_ITS ---
It has been my pleasure to treat NANCY LEVY referred by Dr. Ayad Brown MD, with the diagnosis of Scaitica for a total of 9 visit(s). Discharge Date: 10/30/21 Please see the following information for a summary of their discharge status. Subjective: Better. Miracle. No more pain. Sleeping OK, takes a little but to get to sleep then is comfortable. Activities are pretty normal, cannot play basketball. Can bend down to get ball off ground much easier. No f/u with doctor. Has HEP and given more today and feels like can continue getting be tter. LBP Pain Intensity (Out of 10): 0 % Improvement: 80 Objective/Function: Mod deficits in lumbar flex and ext and min in SB B. No pain walking or antalgia. Steps and pivots without problems. Overall doing very well. Goal 1:: Step into tub easily and without pain Goal Progress: Goal Met Goal 2:: I approp HEP to minimize future problems with pain Goal Progress: Goal Met Goal 3:: Pt feel 75% better in overall pain level at 1/10 at worst. Goal Progress: 80% Goal 4:: 58 LEFS to show improved mobilkity. Goal Progress: Goal Met Plan: d/c to HEP Discharge Comments: Pt to continue via HEP and contact doctor if pain returns. If there are questions or concerns regarding this patient's physical therapy, please feel free to call me at [phone]. Thank you for the referral of this patient. Sincerely, Vinnie Allen, DPT, OCS, CSCS Balance/Gait/Functional tests - Balance/Special Test Scores Lower Extremity Functional Score: 66
== END 2021-10-30 19:00 | disposition home or self-care (01) ==
LOC: PT 14:00
PROVIDERS: PCP Family Medicine Geriatric Medicine; Referring Provider Family Medicine Geriatric Medicine; Visit Provider Family Medicine Geriatric Medicine
DX: M54.30 Sciatica, unspecified side (principal)
CPT/HCPCS: 97110; 97140; 97161; 97164

== ENCOUNTER 2022-01-04 10:08 | Outpatient (CLI) | payer MEDICARE, MEDICAID, SELFPAY ==
[2022-01-04 15:08] LABS: M R Staph aureus DNA By PCR Negative (Negative); Probe Check PASS; Specimen Processing Control PASS; Staph aureus DNA By PCR NEGATIVE (Negative)
== END 2022-01-04 23:59 | disposition short-term general hospital (02) ==
LOC: LABSPEC 13:10
PROVIDERS: PCP Family Medicine Geriatric Medicine; Visit Provider Family Medicine Geriatric Medicine
DX: L03.90 Cellulitis, unspecified (principal)
CPT/HCPCS: 87070; 87205; 87640

== ENCOUNTER → 2022-03-20 | Outpatient (CLI) | payer MEDICARE, MEDICAID, SELFPAY ==
[2022-03-20 12:17] LABS: Absolute Neutrophil Count 4.2 X10^3/uL (2.0-7.7); Basophil# 0.02 X10^3/uL; Basophil% 0.3 % (0-1); Eosinophil# 0.17 X10^3/uL; Eosinophils% 2.4 % (0-5); Hemoglobin 15.8 g/dL (13.0-16.5); Lymphocyte % 28.7 % (19-41); Mean Corp Hgb Conc 33.6 g/dL (32-36); Mean Corpuscular Hgb 29.1 pg (27.0-32.0); Mean Corpuscular Volume 86.6 fL (80-94); Mean Platelet Vol. 9.3 fl (6.2-12.0); Monocyte% 7.2 % (0-10); NRBC Flagged by Analyzer 0 % (0-5); Neutrophil # 4.24 X10^3/uL (2.7-7.7); Platelet Count 231 K/mm3 (150-450); RBC Distribution Width CV 13.5 % (11.6-14.6); RBC Distribution Width SD 42.5 fl (35.1-43.9); Red Blood Count 5.43 M/mm3 (4.6-6.2)
[2022-03-20 12:29] LABS: Vitamin D,25 Hydroxy 26.7 ng/mL
[2022-03-20 12:42] LABS: ALB/GLOB Ratio 1.4 RATIO (0.9-2.4); AST(SGOT) 32 U/L (15-37); Alanine Aminotransfer ALT/SGPT 41 U/L (16-61); Albumin, Serum 4.2 g/dL (3.2-5.0); Alkaline Phosphatase 81 U/L (45-117); Anion Gap 7 (5-15); BUN 8 mg/dL (7-18); BUN/Creat Ratio 8.7 RATIO (10-20); Calcium,Total 8.7 mg/dL (8.5-10.1); Chloride 98 mmol/L (98-107); Creatinine, Serum 0.92 mg/dL (0.70-1.30); EST Glomerular Filtration Rate 88 mL/min (>60); Est Glom Filt Rate - Afr Amer 106 mL/min (>60); Glucose 108 mg/dL (74-106); Potassium 4.2 mmol/L (3.5-5.1); Protein, Total 7.2 g/dL (6.4-8.2); Sodium Level 134 mmol/L (136-145); Thyroid Stim Hormone (TSH) 0.57 uIU/mL (0.358-3.74)
== END | disposition home or self-care (01) ==
LOC: POLAB3 11:31
PROVIDERS: PCP Family Medicine Geriatric Medicine; Visit Provider Family Medicine Geriatric Medicine
DX: E55.9 Vitamin D deficiency, unspecified (principal); I10 Essential (primary) hypertension
CPT/HCPCS: 36415; 80053; 82306; 84443; 85025

== ENCOUNTER → 2022-04-03 | Outpatient (CLI) | payer MEDICARE, MEDICAID, SELFPAY | END | disposition home or self-care (01) | LOC: PSN 14:00 | PROVIDERS: PCP Family Medicine Geriatric Medicine; Referring Provider Family Medicine Geriatric Medicine; Visit Provider Family Medicine Geriatric Medicine | DX: R68.83 Chills (without fever) (principal) | CPT/HCPCS: 87635; 87804; 87807; U0003; U0005 ==

== ENCOUNTER 2022-05-30 17:19 | Emergency (ER) | payer MEDICARE, MEDICAID, SELFPAY ==
[2022-05-30 17:20] VITALS: BP 165/89; PULSE 95; RESP 15; TEMP 36.9; O2SAT 100; BMI 34.8
[2022-05-30] MEDS: Diphth,Pertuss(Acell),Tet Vac 0.5 ML Vial IM (18:07)
[2022-05-30] MEDS: Acetaminophen 500 MG Tablet 1000 MG PO (18:07)
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
== END 2022-05-30 19:08 | disposition home or self-care (01) ==
PROVIDERS: Emergency Provider Student in an Organized Health Care Education/Training Program; PCP Family Medicine Geriatric Medicine; Visit Provider Student in an Organized Health Care Education/Training Program
DX: S50.812A Abrasion of left forearm, initial encounter (principal); V19.3XXA Pedal cyclist (driver) (passenger) injured in unspecified nontraffic accident, initial encounter; Z87.891 Personal history of nicotine dependence
CPT/HCPCS: 90715; 96372; 99282

== ENCOUNTER 2022-06-16 19:19 | Emergency (ER) | payer MEDICARE, MEDICAID, SELFPAY ==
[2022-06-16 19:20] VITALS: BP 161/80; PULSE 84; RESP 16; TEMP 36.6; O2SAT 96; BMI 33.3
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
== END 2022-06-16 22:25 | disposition home or self-care (01) ==
PROVIDERS: Emergency Provider Emergency Medicine; PCP Family Medicine Geriatric Medicine; Visit Provider Emergency Medicine
DX: S70.02XA Contusion of left hip, initial encounter (principal); Z87.891 Personal history of nicotine dependence; W01.0XXA Fall on same level from slipping, tripping and stumbling without subsequent striking against object, initial encounter
CPT/HCPCS: 73502; 99284

== ENCOUNTER → 2022-07-18 | Outpatient (CLI) | payer MEDICARE, MEDICAID, SELFPAY ==
--- NOTE | 2022-07-18 15:05 | CT_ITS ---
INDICATION: ENCEPHALOPATHY EXAMINATION: CT BRAIN - CT Head or Brain W/O Contrast Injection TECHNIQUE: Multiple axial images were obtained of the head without intravenous contrast. A radiation dose optimization technique was used for this scan. IV Contrast dosage and agent: None. COMPARISON: None. FINDINGS: BRAIN PARENCHYMA: No intra- or extra-axial hemorrhage. No evidence of acute infarct. No intracranial mass or mass effect. There is preservation of the [place]/white matter interface. Posterior fossa structures are unremarkable. Thinning of the corpus callosum is seen. CSF SPACES: Atrophic brain changes visualized. Prominent cavum septum pellucidum. Patent aqueduct of Sylvius. Basal cisterns are patent. CALVARIUM, SKULL BASE, PARANASAL SINUSES AND MASTOID AIR CELLS: Clear. No discrete lytic or blastic abnormalities. ORBITS: Both globes, extraocular muscles, optic nerves and retrobulbar fat appear unremarkable. ASPECTS Score for Acute Strokes: 10 CT/Brain/Head without Contrast IMPRESSION: No evidence of acute intracranial pathology is seen. Electronically Signed: Lyndon Swain MD at 15:31 EDT ,
[2022-07-18 17:23] LABS: Absolute Lymphocyte Count 1.34 X10^3/uL (0.83-4.51); Absolute Neutrophil Count 3.7 X10^3/uL (2.0-7.7); Basophil# 0.03 X10^3/uL; Basophil% 0.5 % (0-1); Eosinophil# 0.12 X10^3/uL; Eosinophils% 2.1 % (0-5); Hemoglobin 12.8 g/dL (13.0-16.5); Lymphocyte # 1.34 X10^3/ul (0.83-4.51); Lymphocyte % 23.6 % (19-41); Mean Corp Hgb Conc 33.7 g/dL (32-36); Mean Corpuscular Hgb 29.5 pg (27.0-32.0); Mean Corpuscular Volume 87.6 fL (80-94); Mean Platelet Vol. 8.9 fl (6.2-12.0); Monocyte# 0.49 X10^3/uL; Monocyte% 8.6 % (0-10); NRBC Flagged by Analyzer 0 % (0-5); Neutrophil # 3.68 X10^3/uL (2.7-7.7); Neutrophil % 64.8 % (47-70); Platelet Count 207 K/mm3 (150-450); RBC Distribution Width CV 13.6 % (11.6-14.6); RBC Distribution Width SD 43.5 fl (35.1-43.9); Red Blood Count 4.34 M/mm3 (4.6-6.2); White Blood Count 5.7 K/mm3 (4.4-11.0)
[2022-07-18 17:48] LABS: ALB/GLOB Ratio 1.3 RATIO (0.9-2.4); AST(SGOT) 37 U/L (15-37); Alanine Aminotransfer ALT/SGPT 38 U/L (16-61); Albumin, Serum 3.4 g/dL (3.2-5.0); Alkaline Phosphatase 55 U/L (45-117); Anion Gap 5 (5-15); BUN 6 mg/dL (7-18); BUN/Creat Ratio 6.9 RATIO (10-20); Calcium,Total 7.7 mg/dL (8.5-10.1); Chloride 103 mmol/L (98-107); Creatinine, Serum 0.86 mg/dL (0.70-1.30); EST Glomerular Filtration Rate 94 mL/min (>60); Est Glom Filt Rate - Afr Amer 113 mL/min (>60); Globulin 2.7 g/dL (2.2-4.2); Glucose 101 mg/dL (74-106); Potassium 3.9 mmol/L (3.5-5.1); Protein, Total 6.1 g/dL (6.4-8.2); Sodium Level 135 mmol/L (136-145); Thyroid Stim Hormone (TSH) 0.44 uIU/mL (0.358-3.74)
== END | disposition home or self-care (01) ==
PROVIDERS: PCP Family Medicine Geriatric Medicine; Referring Provider Family Medicine Geriatric Medicine; Visit Provider Family Medicine Geriatric Medicine
DX: G93.40 Encephalopathy, unspecified (principal); R53.83 Other fatigue
CPT/HCPCS: 36415; 70450; 80053; 84443; 85025

== ENCOUNTER → 2022-07-26 | Outpatient (CLI) | payer MEDICARE, MEDICAID, SELFPAY ==
[2022-07-26 12:37] LABS: Anion Gap 7 (5-15); BUN 12 mg/dL (7-18); BUN/Creat Ratio 13.2 RATIO (10-20); Calcium,Total 8.7 mg/dL (8.5-10.1); Chloride 100 mmol/L (98-107); Creatinine, Serum 0.91 mg/dL (0.70-1.30); EST Glomerular Filtration Rate 89 mL/min (>60); Est Glom Filt Rate - Afr Amer 107 mL/min (>60); Glucose 96 mg/dL (74-106); Potassium 4.2 mmol/L (3.5-5.1); Sodium Level 133 mmol/L (136-145)
== END | disposition home or self-care (01) ==
LOC: POLAB3 09:14
PROVIDERS: PCP Family Medicine Geriatric Medicine; Visit Provider Family Medicine Geriatric Medicine
DX: E83.51 Hypocalcemia (principal)
CPT/HCPCS: 36415; 80048

== ENCOUNTER 2022-08-06 20:52 | Emergency (ER) | payer MEDICARE, MEDICAID, SELFPAY ==
[2022-08-06 20:53] VITALS: BP 165/77; PULSE 77; RESP 18; RESP 20; TEMP 36.5; O2SAT 96; O2SAT 97; BMI 33.3
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
[2022-08-06 21:34] LABS: Absolute Lymphocyte Count 1.64 X10^3/uL (0.83-4.51); Absolute Neutrophil Count 4.3 X10^3/uL (2.0-7.7); Basophil# 0.03 X10^3/uL; Basophil% 0.4 % (0-1); Eosinophil# 0.13 X10^3/uL; Eosinophils% 1.9 % (0-5); Hematocrit 37.7 % (40-54); Hemoglobin 12.9 g/dL (13.0-16.5); Lymphocyte # 1.64 X10^3/ul (0.83-4.51); Lymphocyte % 24.5 % (19-41); Mean Corp Hgb Conc 34.2 g/dL (32-36); Mean Corpuscular Hgb 30.5 pg (27.0-32.0); Mean Corpuscular Volume 89.1 fL (80-94); Mean Platelet Vol. 8.9 fl (6.2-12.0); NRBC Flagged by Analyzer 0 % (0-5); Neutrophil # 4.27 X10^3/uL (2.7-7.7); Neutrophil % 63.9 % (47-70); Platelet Count 236 K/mm3 (150-450); RBC Distribution Width CV 13.5 % (11.6-14.6); RBC Distribution Width SD 44.1 fl (35.1-43.9); Red Blood Count 4.23 M/mm3 (4.6-6.2); White Blood Count 6.7 K/mm3 (4.4-11.0)
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
[2022-08-06 21:47] LABS: ALB/GLOB Ratio 1.2 RATIO (0.9-2.4); AST(SGOT) 29 U/L (15-37); Alanine Aminotransfer ALT/SGPT 29 U/L (16-61); Albumin, Serum 3.5 g/dL (3.2-5.0); Alkaline Phosphatase 57 U/L (45-117); Anion Gap 8 (5-15); BUN 13 mg/dL (7-18); BUN/Creat Ratio 15.8 RATIO (10-20); Calcium,Total 8.3 mg/dL (8.5-10.1); Chloride 103 mmol/L (98-107); Creatinine, Serum 0.82 mg/dL (0.70-1.30); EST Glomerular Filtration Rate 99 mL/min (>60); Est Glom Filt Rate - Afr Amer 120 mL/min (>60); Estimated Creatinine Clearance 97.26 ml/min; Globulin 2.8 g/dL (2.2-4.2); Glucose 124 mg/dL (74-106); Potassium 3.6 mmol/L (3.5-5.1); Protein, Total 6.3 g/dL (6.4-8.2); Sodium Level 136 mmol/L (136-145)
--- NOTE | 2022-08-06 22:13 | EDS_ITS ---
HPI HPI - Fall History of Present Illness Chief Complaint: Fall Informant: patient, EMS and mental health staff Narrative Narrative: 66-year-old male brought to the emergency room following a fall today. He apparently fell and injured his right hip and struck the back of his head. He denies any loss of conscious nausea or vomiting. He states he has been up walking but not that much today. prison staff states that he is fallen s everal times in the past week when a question about this he states he believes it is because of his shoes. 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 [facility] Medical History Anxiety Depression Hemorrhoids Hypertension Hypothyroid Schizophrenia SOB (shortness of breath) Home Medications benztropine 2 mg tablet 2 mg PO BID extrapyramidal symptoms 11/23/19 [History Last Taken 11/23/19] doxycycline monohydrate 100 mg capsule 100 mg PO BID antibiotic 11/23/19 [History Last Taken 11/23/19] levothyroxine 150 mcg tablet 150 mcg PO DAILY thyroid 11/23/19 [History Last Taken 11/22/19] lisinopril 20 mg tablet 20 mg PO DAILY blood pressure 11/23/19 [History Last Taken 11/23/19] lorazepam 0.5 mg tablet See Rx Instructions .Route .COMPLEX PRN Anxiety 11/23/19 [History Last Taken 11/23/19] lorazepam 1 mg tablet 1 mg PO BID anxiety 11/23/19 [History Last Taken 11/23/19] mupirocin 2 % topical ointment 1 applicatio topical BID antibiotic 11/23/19 [History Last Taken 11/23/19] trazodone 100 mg tablet 100 mg PO DAILY depression 11/23/19 [History Last Taken 11/22/19] polyethylene glycol 3350 17 gram/dose oral powder (Miralax) 17 g PO DAILY #510 grams 04/25/22 [Rx Last Taken Unknown] docusate sodium 100 mg capsule See Rx Instructions .Route .COMPLEX #60 caps 05/25/22 [Rx Last Taken Unknown] albuterol 90 mcg/actuation aerosol inhaler 2 mcg inhalation 08/06/22 [History Last Taken Unknown] budesonide-formoterol HFA 160 mcg-4.5 mcg/actuation aerosol inhaler (Symbicort) 2 puff inhalation BID 08/06/22 [History Last Taken Unknown] calcium carbonate 200 mg calcium (500 mg) chewable tablet (Leandro-Gest Antacid) 150 mg PO BID 08/06/22 [History Last Taken Unknown] yknibktpsgaahywxpvsnqu-thfyrvne-umuqqyky 80 0.5 %-1 %-0.5 % eye drops (Refresh Digital) 1 drp EACH EYE QHS 08/06/22 [History Last Taken Unknown] ipratropium bromide 42 mcg (0.06 %) nasal spray 2 spray intranasal BID 08/06/22 [History Last Taken Unknown] pantoprazole 40 mg tablet,delayed release 40 mg PO DAILY 08/06/22 [History Last Taken Unknown] pravastatin 40 mg tablet 40 mg PO QHS 08/06/22 [History Last Taken Unknown] terbinafine HCl 125 mg oral granules in packet 250 mg PO DAILY 08/06/22 [History Last Taken Unknown] Allergy/AdvReac Type Severity Reaction Status Date / Time Penicillins [PCN] Allergy Anaphylaxis Verified 08/06/22 20:56 Family History Father Colon cancer Mother Cancer Social History Smoking Status: Former smoker alcohol intake: never substance use type: does not use ROS ROS ED Constitutional Constitutional ED: Denies chills or weight loss Eyes Eyes: Denies change in vision or diplopia ENT ENT ED: Denies ear pain, rhinorrhea or sore throat Cardiovascular Cardiovascular: Denies chest pain, orthopnea, palpitations or racing heartbeat Respiratory/Chest Respiratory/Chest: Denies cough, dyspnea or orthopnea Gastrointestinal Gastrointestinal: Denies abdominal pain, diarrhea, nausea or vomiting Genitourinary Genitourinary ED: Denies dysuria, hematuria or urinary frequency Musculoskeletal Musculoskeletal: Reports other Details: Right hip pain ; Denies arthralgias or myalgias Integumentary Denies abscess or rash Neurologic Neurologic: Reports headache(s); Denies weakness Psychiatric Psychiatric: Denies anxiety, depression, suicidal ideation or suicidal thoughts Endocrine Endocrinology: Denies polydipsia, polyphagia or polyuria Allergic/Immunologic Allergic/Immunologic ED: Denies mouth swelling, tongue swelling or urticaria EXAM Physical Exam Const Vital Signs: 08/06/22 20:53 08/06/22 20:53 Temperature 97.7 F L 97.7 F L Temperature Source Temporal Temporal Pulse Rate 77 77 Respiratory Rate 20 H 18 Blood Pressure 165/77 H 165/77 H Blood Pressure Mean 106 106 Pulse Ox 96 97 Oxygen Delivery Method Room Air Room Air Positive well nourished and well developed General Appearance ED: well developed HEENT Reports normocephalic, head/scalp atraumatic and moist mucous membranes Eyes PERRL and EOMs intact bilaterally Neck no lymphadenopathy, supple and no JVD Resp normal respiratory effort and clear to auscultation bilaterally Cardio regular rate, regular rhythm and no murmurs GI normal to inspection, nondistended, normoactive bowel sounds and non-tender Palpation: soft Back/Spine no CVA tenderness and normal ROM Extremity normal to inspection Extremity Narrative: Patient has no pain on palpation with either hip. No pain with logroll. General Extremety ED: Negative for edema General Extremity: Negative for edema Neuro CN's II-XII intact bilaterally Sensorium / Orientation: alert Motor Exam: strength 5/5 throughout Psych mental status grossly normal Mood & Affect: Negative for depressed or tearful Skin no rashes or lesions noted and no wounds MDM MDM MDM Narrative Medical decision making narrative: CT the brain is negative. My interpretation of the hip and pelvis x-rays is no acute fracture. CBC and CMP are within acceptable limits. At this point patient was able to ambulate for us and will be discharged home to the snf. Lab Data Attestation: I reviewed the patient's lab results. Labs: Laboratory Results - last 24 hr 08/06/22 08/06/22 21:20 21:20 WBC 6.7 RBC 4.23 L Hgb 12.9 L Hct 37.7 L MCV 89.1 MCH 30.5 MCHC 34.2 RDW Std Deviation 44.1 H RDW Coeff of Evelin 13.5 Plt Count 236 MPV 8.9 Immature Gran % (Auto) 0.300 Neut % (Auto) 63.9 Lymph % (Auto) 24.5 Mora % (Auto) 9.0 Eos % (Auto) 1.9 Baso % (Auto) 0.4 Absolute Neuts (auto) 4.3 Absolute Lymphs (auto) 1.64 Nucleated RBC % 0 Sodium 136 Potassium 3.6 Chloride 103 Carbon Dioxide 25.0 Anion Gap 8 BUN 13 Creatinine 0.82 Estim Creat Clear Calc 97.26 Est GFR (MDRD) Af Amer 120 Est GFR (MDRD) Non-Af 99 BUN/Creatinine Ratio 15.8 Glucose 124 H Calcium 8.3 L Total Bilirubin 0.40 AST 29 ALT 29 Alkaline Phosphatase 57 Total Protein 6.3 L Albumin 3.5 Globulin 2.8 Albumin/Globulin Ratio 1.2 Radiography Diagnostic Testing: Clinical Impression(s) from Imaging Studies Brain CT 08/06/22 21:11 IMPRESSION: Chronic involutional changes of the brain. Electronically Signed: Tolu Reece DO at 21:55 EDT Reading Location ID and State: [facility] / [place] Tel , Service support , Hip/Pelvis X-Ray 08/06/22 21:45 IMPRESSION: No acute findings Electronically Signed: Tolu Reece DO at 22:04 EDT Reading Location ID and State: [facility] / [place] Tel , Service support , Discharge Plan Triage Chief Complaint: Fall Other Complaint: Lower Extremity Injury ED Provider: Nils Diaz Dx/Rx/DC Orders Clinical Impression: Fall, Head injury, Contusion of hip, Frequent falls Instructions: Bruises (Contusions), ED Head Injury (Adult), ED Fall Prevention Prescriptions: No Action lisinopril 20 tablet 20 mg PO DAILY lorazepam 0.5 tablet See Rx Instructions .ROUTE .COMPLEX PRN (Reason: Anxiety) Rx Instructions: 0.5 mg orally as needed trazodone 100 tablet 100 mg PO DAILY levothyroxine 150 MCG tablet 150 mcg PO DAILY benztropine 2 tablet 2 mg PO BID lorazepam 1 tablet 1 mg PO BID doxycycline monohydrate 100 capsule 100 mg PO BID mupirocin 2 ointment 1 applicatio topical BID pravastatin 40 mg Tablet 40 mg PO QHS pantoprazole 40 mg Tablet,Delayed Release (Dr/Ec) 40 mg PO DAILY calcium carbonate [Leandro-Gest Antacid] 200 mg calcium (500 mg) Tablet,Chewable 150 mg PO BID albuterol 90 mcg/actuation Aerosol 2 mcg INHALATION ipratropium bromide 42 mcg (0.06 %) [place],Non-Aerosol 2 spray INTRANASAL BID Rx Instructions: administer into each nostril budesonide-formoterol [Symbicort] 160-4.5 mcg/actuation Hfa Aerosol Inhaler 2 puff INHALATION BID terbinafine HCl 125 mg Granules In Packet 250 mg PO DAILY Refresh Digital 0.5-1-0.5 % Drops 1 drp EACH EYE QHS polyethylene glycol 3350 [Miralax] 17 gram/dose powder 17 g PO DAILY Qty: 510 3RF docusate sodium 100 mg capsule See Rx Instructions .ROUTE .COMPLEX Qty: 60 0RF Dose Instruction: TAKE 2 CAPSULES BY MOUTH DAILY FOR CONSTIPATION Rx Instructions: TAKE 2 CAPSULES BY MOUTH DAILY FOR CONSTIPATION Primary Care Provider: Ayad Brown Chi Referrals: Ayad Brown Chi, MD [Primary Care Provider] - 1 Week Disposition Disposition: Home, Self Care
[2022-08-06 22:23] VITALS: BP 138/76; PULSE 82; RESP 18; O2SAT 96
[2022-08-07] VITALS: RESP 16
== END 2022-08-07 00:39 | disposition home or self-care (01) ==
PROVIDERS: Emergency Provider Emergency Medicine; PCP Family Medicine Geriatric Medicine; Visit Provider Emergency Medicine
DX: S09.90XA Unspecified injury of head, initial encounter (principal); S70.01XA Contusion of right hip, initial encounter; I10 Essential (primary) hypertension; E03.9 Hypothyroidism, unspecified; Z79.899 Other long term (current) drug therapy; Z87.891 Personal history of nicotine dependence; W19.XXXA Unspecified fall, initial encounter
CPT/HCPCS: 70450; 73502; 80053; 85025; 99285; A4216

== ENCOUNTER 2022-09-13 12:30 | Outpatient (RCR) | payer MEDICARE, MEDICAID, SELFPAY ==
--- NOTE | 2022-08-21 10:56 | HP.PTEVAL_ITS ---
Patient's Visit Information NANCY LEVY is a 66 year old M referred to Physical Therapy by Dr. Ayad Brown MD with a diagnosis of abnormality of gait and mobility. Date of Evaluation: 08/21/22 Physical Therapist: WALE Garland - Visit Plan Frequency: 2x /Week Duration: 6 Weeks Plan: 2X/ week for 4-6 weeks for LE strengthening, balance training (static and dynamic, with compliant and non compliant surfaces, with head and without head turns), functional activities such as stairs, sit to stands, curb steps with HEP (if able to do it at home... believe he is [place] a [place] [facility] [place] but pt is poor histortian - Subjective Pt struggles to communicate. Getting PMHX is sketchy. His words are slow and mixed thoughts. Pt has been having some falls. He is single. He lives in a [place] [facility]. There are people there that help take care of him. He feels that he has weakness when getting up and down the steps. He does not use a hand rail on the steps. He reports that he does not have trouble getting out of a chair. He has no trouble rolling over in bed or getting in and out of a car. If he falls he is able to get up off the floor. He reports that he does not get dizzy. He does not know how many times he has fallen but he guesses it has been a lot lately. He feels unsteady when he walks. He sometimes walks outside and feels more unsteady outside. He uses a cane when he walks outside but did not bring one in today. Pt report that he likes to do stretch bands and weight at the [place] [facility]. - Objective Gait: walks with decrease stride length, no arm swing, no trunk rotation or neck rotation. LE MMT: R hip flex 9.9# and L hip flex 10.2#. R knee ext 25.1# and L knee ext 23.5#. R knee flex 12.5# and L knee flex 15.5#. FGA: 11. CATSIB: 89. Stairs: up and down recip with 2 hand rails pulling self up the steps. Going down he is hesitant like he almost does not know where to put his foot (depth perception??). Stepping over an object pt needed to use his UE to catch himself from falling twice and had a hard time with proprioception of his foot/or depth percention??? Sit to stand: Able to sit to stand without using his UE's on first attempt - Balance/Special Test Scores Functional Gait Assessment Score: 11 % Disability: 63.3400 CATSIB Score (Max score 120 seconds): 89 Lower Extremity Functional Score: 31 - Goals Goal 1:: I HEP Goal Time Frame: 4-6 Weeks Goal 2:: Increase balance by increasing score on FGA (score at eval 11) Goal Time Frame: 4-6 Weeks Goal 3:: Be able to go up and down the steps with 1 hand rail recip with good recip posture and smooth motion and no signs of weakness Goal Time Frame: 4-6 Weeks Goal 4:: Be able to walk with head turns X 4 directions without having to slow down with CGA Goal Time Frame: 4-6 Weeks - Rehabilitation Potential Rehabilitation Potential: Fair - Anticipated Interventions Patient/Client Instruction: Educate patient on: Condition, Plan of Care For the Purpose of:: To improve muscle performance and motor function, To improve ability to perform ADL's, To increase tolerance to activity/condition/position, To improve performance and independence with ADL's, To decrease level of supervision to perform tasks, To improve ability of physical actions for home/community/work/leisure, To improve gait and locomotor functions, To improve endurance, To improve balance, To improve safety with gait Therapeutic Exercise to Include: Strength training, Endurance training, Balance training, Postural training, Gait and locomotor training, Neuromotor development For the Purpose of:: To improve muscle performance and motor function, To improve ability to perform ADL's, To increase tolerance to activity/condition/position, To improve performance and independence with ADL's, To decrease level of supervision to perform tasks, To improve ability of physical actions for home/community/work/leisure, To improve gait and locomotor functions, To improve endurance, To improve balance, To improve safety with gait Functional Training to Include: Gait training For the Purpose of:: To improve gait and locomotor functions, To improve safety with gait Thank you for the opportunity to evaluate your patient. For Medicare and Medicare HMO plans, please review the plan of care and approve it. It will need to be FAXED BACK to us at [phone] for Medicare purposes. For Medicare only, by signing this I certify the plan of care. Please let me know if there are questions or concerns regarding this plan of care. Physician Signature: Date:
== END 2022-09-13 19:00 | disposition home or self-care (01) ==
LOC: PT 12:30
PROVIDERS: PCP Family Medicine Geriatric Medicine; Referring Provider Family Medicine Geriatric Medicine; Visit Provider Family Medicine Geriatric Medicine
DX: R26.9 Unspecified abnormalities of gait and mobility (principal); R29.6 Repeated falls
CPT/HCPCS: 97110; 97162

== ENCOUNTER 2022-09-15 14:29 | Inpatient (IN) | payer MEDICAID, MEDICARE, SELFPAY ==
[2022-09-15 14:34] VITALS: BP 151/70; PULSE 91; RESP 26; TEMP 37.1; O2SAT 97; BMI 27.6
[2022-09-15 14:38] VITALS: BP 142/71; PULSE 91; RESP 24; O2SAT 96
--- NOTE | 2022-09-15 14:51 | CT_ITS ---
STUDY: CT BRAIN WITHOUT CONTRAST REASON FOR EXAM: Male, 67 years old. mental status change TECHNIQUE: Transaxial CT imaging of the brain was performed without administration of intravenous contrast material. Individualized dose optimization techniques were used for this CT. COMPARISON: 22 FINDINGS: Normal calvarium. Normal soft tissues. Normal size ventricles and extra-axial spaces for the patient''s age. There are areas of decreased attenuation within the white matter tracts of the supratentorial brain, consistent with microvascular disease changes. Normal basal ganglia and thalami. Normal brainstem. Normal cerebellum. There is no intracranial hemorrhage. There are no findings of an acute ischemic infarction. Normal visualized paranasal sinuses. ASPECTS 10 CT/Brain/Head without Contrast IMPRESSION: There are no acute intracranial findings. Electronically Signed: Jonathon Juárez MD at 15:43 EDT ,
--- NOTE | 2022-09-15 14:52 | EKG12_ITS ---
Test Reason : AMS Blood Pressure : / mmHG Vent. Rate : 096 BPM Atrial Rate : 096 BPM P-R Int : 166 ms QRS Dur : 118 ms QT Int : 368 ms P-R-T Axes : 040 -31 020 degrees QTc Int : 464 ms Normal sinus rhythm Left axis deviation Right bundle branch block Abnormal ECG Confirmed by LAVON WASHINGTON, YOHANA ([id number]), index editor RAMIREZ COTTO ([id number]) on 09/17/2022 10:03:56 AM Referred By: Confirmed By:BRANDON DOLL MD
--- NOTE | 2022-09-15 14:54 | EX.ED.DYSGE1 ---
HPI History of Present Illness Chief Complaint: Mental Status Change Detail of Chief Complaint: Mental status change that occurred today Informant: patient and EMS Narrative Narrative: Patient brought to the emergency department from senior care by EMS. Apparently EMS was told that patient had a mental status change today where he was standing and just staring at the television. Unclear what patient's baseline is but apparently he had his Parkinson's medication change last week. Patient's not otherwise been ill. Patient is a very poor historian and mumbles and is difficult to understand. He does follow commands. Patient does have history of schizophrenia as well as hypertension and anxiety and depression and hypothyroidism. [facility] Medical History Anxiety Depression Hemorrhoids Hypertension Hypothyroid Schizophrenia SOB (shortness of breath) Home Medications benztropine 2 mg tablet 2 mg PO BID extrapyramidal symptoms 11/23/19 [History Last Taken 11/23/19] levothyroxine 150 mcg tablet 150 mcg PO DAILY thyroid 11/23/19 [History Last Taken 11/22/19] lisinopril 20 mg tablet 20 mg PO DAILY blood pressure 11/23/19 [History Last Taken 11/23/19] lorazepam 0.5 mg tablet 0.5 mg PO THSA 11/23/19 [History Last Taken 11/23/19] lorazepam 1 mg tablet 1 mg PO BID anxiety 11/23/19 [History Last Taken 11/23/19] trazodone 100 mg tablet 100 mg PO QHS depression 11/23/19 [History Last Taken 11/22/19] polyethylene glycol 3350 17 gram/dose oral powder (Miralax) 17 g PO DAILY #510 grams 04/25/22 [Rx Last Taken Unknown] budesonide-formoterol HFA 160 mcg-4.5 mcg/actuation aerosol inhaler (Symbicort) 2 puff inhalation BID 08/06/22 [History Last Taken Unknown] calcium carbonate 200 mg calcium (500 mg) chewable tablet (Leandro-Gest Antacid) 500 mg PO BID 08/06/22 [History Last Taken Unknown] mdqwxxmuhwsmtofjwmukku-eipqrueo-cdmuvfjp 80 0.5 %-1 %-0.5 % eye drops (Refresh Digital) 1 drp EACH EYE TID 08/06/22 [History Last Taken Unknown] ipratropium bromide 42 mcg (0.06 %) nasal spray 1 spray intranasal BID 08/06/22 [History Last Taken Unknown] pantoprazole 40 mg tablet,delayed release 40 mg PO DAILY 08/06/22 [History Last Taken Unknown] pravastatin 40 mg tablet 40 mg PO QHS 08/06/22 [History Last Taken Unknown] terbinafine HCl 125 mg oral granules in packet 250 mg PO DAILY 08/06/22 [History Last Taken Unknown] albuterol sulfate 90 mcg/actuation aerosol inhaler 2 puff inhalation Q6H PRN Shortness Of Breath Or Wheezing 09/15/22 [History Last Taken Unknown] carbidopa 25 mg-levodopa 100 mg tablet (Sinemet) 2 tab PO TID 09/15/22 [History Last Taken Unknown] citalopram 10 mg tablet 10 mg PO DAILY 09/15/22 [History Last Taken Unknown] docusate sodium 100 mg capsule 200 mg PO DAILY 09/15/22 [History Last Taken Unknown] doxycycline hyclate 50 mg capsule 50 mg PO DAILY 09/15/22 [History Last Taken Unknown] lanolin alcohols-mineral oil-w.petrolatum-ceresin topical cream (Minerin Creme topical) 1 applic topical DAILY 09/15/22 [History Last Taken Unknown] rivastigmine tartrate 3 mg capsule 3 mg PO BID 09/15/22 [History Last Taken Unknown] terbinafine 1 % topical gel 1 ea topical BID 09/15/22 [History Last Taken Unknown] timolol maleate 0.5 % eye gel forming solution 1 drp EACH EYE QHS 09/15/22 [History Last Taken Unknown] Allergy/AdvReac Type Severity Reaction Status Date / Time Penicillins [PCN] Allergy Anaphylaxis Verified 09/15/22 14:31 Family History Father Colon cancer Mother Cancer Social History Smoking Status: Former smoker alcohol intake: never substance use type: does not use ROS ROS ED ROS Narrative Confusion and mental status change Review of Systems ROS Unobtainable: due to mental status and other Constitutional Constitutional ED: Reports lethargy; Denies chills, fever(s), sweats or weight loss Eyes Eyes: Denies blurry vision, change in vision or diplopia ENT ENT ED: Denies rhinorrhea or sore throat Cardiovascular Cardiovascular: Reports chest pain and racing heartbeat; Denies orthopnea Respiratory/Chest Respiratory/Chest: Reports dyspnea and dyspnea on exertion; Denies cough, orthopnea or sputum Gastrointestinal Gastrointestinal: Denies abdominal pain, diarrhea, nausea or vomiting Genitourinary Genitourinary ED: Denies dysuria, hematuria or urinary frequency Musculoskeletal Musculoskeletal: Denies arthralgias, back pain, myalgias or neck pain Integumentary Denies abscess, Abrasions or rash Neurologic Neurologic: Denies headache(s) or weakness Psychiatric Psychiatric: Denies anxiety, depression or suicidal thoughts Endocrine Endocrinology: Denies polydipsia, polyphagia or polyuria Hematologic/Lymphatic Hematologic/Lymphatic: Denies easy bleeding, easy bruising or lymphadenopathy Allergic/Immunologic Allergic/Immunologic ED: Denies mouth swelling, tongue swelling or urticaria EXAM Physical Exam Const Vital Signs: 09/15/22 14:34 09/15/22 14:38 Temperature 98.8 F Temperature Source Oral Pulse Rate 91 91 Respiratory Rate 26 H 24 H Blood Pressure 151/70 H 142/71 H Blood Pressure Mean 97 94 Pulse Ox 97 96 Oxygen Delivery Method Room Air Room Air Positive well nourished and well developed General Appearance ED: well developed and NAD HEENT Reports TM's clear and moist mucous membranes normocephalic and atraumatic; Negative for trauma or tenderness Tympanic Membrane ED: Yes TM's clear Eyes PERRL and EOMs intact bilaterally General Eye ED: Negative for pale conjunctiva or scleral icterus Neck no lymphadenopathy, supple and no JVD General: Negative for tenderness Chest Wall inspection of chest normal and palpation of chest normal Chest: Negative for tenderness Resp normal respiratory effort and clear to auscultation bilaterally Effort and Inspection: Negative for respiratory distress or pain with movement Auscultation: Negative for rhonchi, wheezes or diminished lung sounds Cardio regular rate, regular rhythm, S1 normal heart sound, S2 normal heart sound and no murmurs Peripheral Pulses: pulses 2+ throughout GI normal to inspection, nondistended, normoactive bowel sounds, soft to palpation, non-tender, non-distended and no masses Back/Spine no CVA tenderness and no thoracic nor lumbar tenderness Extremity normal to inspection General Extremety ED: Negative for edema General Extremity: Negative for edema Neuro CN's II-XII intact bilaterally, no sensory deficits noted and gait normal Neuro Narrative: Patient awake and alert and follows commands. He has no evidence of trauma to his head. Patient soft-spoken and quiet try and answer questions but is very difficult to understand. Sensorium / Orientation: awake, alert, oriented to person, oriented to place and oriented to time Motor Exam: strength 5/5 throughout and strength abnormal Psych mental status grossly normal Skin no rashes or lesions noted and no wounds MDM MDM MDM Narrative Medical decision making narrative: OrderedIV line established.. Lab work-up showed an elevated white count of 14.9. Chemistries unremarkable. CT brain was unremarkable. Chest x-ray unremarkable. Urinalysis was positive for UTI. Patient ordered lactate and started on Cipro IV as he is pen allergic. Urine culture was sent. Case will be discussed with hospitalist evaluate patient for admission for mental status change and UTI. Patient also had recent medication adjustment unclear how much of the mental status changes related to that. Lab Data Attestation: I reviewed the patient's lab results. Labs: Laboratory Results - last 24 hr 09/15/22 09/15/22 15:15 15:15 WBC 14.9 H RBC 4.70 Hgb 14.2 Hct 41.9 MCV 89.1 MCH 30.2 MCHC 33.9 RDW Std Deviation 44.6 H RDW Coeff of Evelin 13.6 Plt Count 189 MPV 9.3 Immature Gran % (Auto) 0.800 Neut % (Auto) 86.7 H Lymph % (Auto) 4.7 L [place] % (Auto) 7.5 Eos % (Auto) 0.0 Baso % (Auto) 0.3 Absolute Neuts (auto) 12.9 H Absolute Lymphs (auto) 0.70 L Nucleated RBC % 0 Sodium 136 Potassium 3.5 Chloride 102 Carbon Dioxide 24.0 Anion Gap 10 BUN 13 Creatinine 1.06 Estim Creat Clear Calc 76.42 Est GFR (MDRD) Af Amer 90 Est GFR (MDRD) Non-Af 74 BUN/Creatinine Ratio 12.3 Glucose 119 H Calcium 8.9 Total Bilirubin 1.40 H AST 60 H ALT 18 Alkaline Phosphatase 62 Troponin I High Sens 28 Total Protein 7.1 Albumin 3.9 Globulin 3.2 Albumin/Globulin Ratio 1.2 Radiography Diagnostic Testing: Clinical Impression(s) from Imaging Studies Brain CT 09/15/22 14:51 IMPRESSION: There are no acute intracranial findings. Electronically Signed: Jonathon Juárez MD at 15:43 EDT , 1 view chest x-ray obtained interpreted by myself as chronic interstitial changes with no acute disease process. Official report from radiology pending. EKG Initial EKG: Attestation: I personally reviewed and interpreted this EKG as follows: Comments: Sinus rhythm with a rate of 96 bpm with right bundle branch block Discharge Plan Triage Chief Complaint: Mental Status Change ED Provider: Dominga Camarillo Dx/Rx/DC Orders Clinical Impression: Acute alteration in mental status, Acute UTI, Leukocytosis, History of Parkinson's disease Prescriptions: No Action lisinopril 20 tablet 20 mg PO DAILY lorazepam 0.5 tablet 0.5 mg PO THSA trazodone 100 tablet 100 mg PO QHS levothyroxine 150 MCG tablet 150 mcg PO DAILY benztropine 2 tablet 2 mg PO BID lorazepam 1 tablet 1 mg PO BID pravastatin 40 mg Tablet 40 mg PO QHS pantoprazole 40 mg Tablet,Delayed Release (Dr/Ec) 40 mg PO DAILY calcium carbonate [Leandro-Gest Antacid] 200 mg calcium (500 mg) Tablet,Chewable 500 mg PO BID ipratropium bromide 42 mcg (0.06 %) Avery,Non-Aerosol 1 spray INTRANASAL BID Rx Instructions: administer into each nostril budesonide-formoterol [Symbicort] 160-4.5 mcg/actuation Hfa Aerosol Inhaler 2 puff INHALATION BID terbinafine HCl 125 mg Granules In Packet 250 mg PO DAILY Refresh Digital 0.5-1-0.5 % Drops 1 drp EACH EYE TID doxycycline hyclate 50 mg capsule 50 mg PO DAILY citalopram 10 mg Tablet 10 mg PO DAILY albuterol sulfate 90 mcg/actuation Hfa Aerosol Inhaler 2 puff INHALATION Q6H PRN (Reason: Shortness Of Breath Or Wheezing) timolol maleate 0.5 % Gel Forming Solution 1 drp EACH EYE QHS carbidopa-levodopa [Sinemet] 25-100 mg Tablet 2 tab PO TID rivastigmine tartrate 3 mg Capsule 3 mg PO BID terbinafine 1 % Gel 1 ea TOPICAL BID Rx Instructions: apply to both feet. Minerin Creme Cream 1 applic TOPICAL DAILY docusate sodium 100 mg capsule 200 mg PO DAILY polyethylene glycol 3350 [Miralax] 17 gram/dose powder 17 g PO DAILY Qty: 510 3RF Primary Care Provider: Ayad Brown Chi Referrals: Ayad Brown Chi, MD [Primary Care Provider] -
--- NOTE | 2022-09-15 15:08 | ED.RN ---
spoke with Brianna from [facility] about patient to get more information. Updated Dr. Camarillo.
[2022-09-15] MEDS: 0.9% Normal Saline 1,000 ML 150 ML IV ×2 (15:16→20:56)
[2022-09-15 15:26] LABS: Absolute Neutrophil Count 12.9 X10^3/uL (2.0-7.7); Basophil# 0.04 X10^3/uL; Basophil% 0.3 % (0-1); Hematocrit 41.9 % (40-54); Hemoglobin 14.2 g/dL (13.0-16.5); Lymphocyte % 4.7 % (19-41); Mean Corp Hgb Conc 33.9 g/dL (32-36); Mean Corpuscular Hgb 30.2 pg (27.0-32.0); Mean Corpuscular Volume 89.1 fL (80-94); Mean Platelet Vol. 9.3 fl (6.2-12.0); Monocyte# 1.11 X10^3/uL; Monocyte% 7.5 % (0-10); NRBC Flagged by Analyzer 0 % (0-5); Neutrophil # 12.92 X10^3/uL (2.7-7.7); Neutrophil % 86.7 % (47-70); Platelet Count 189 K/mm3 (150-450); RBC Distribution Width CV 13.6 % (11.6-14.6); RBC Distribution Width SD 44.6 fl (35.1-43.9); White Blood Count 14.9 K/mm3 (4.4-11.0)
--- NOTE | 2022-09-15 15:27 | RAD_ITS ---
STUDY: XR Chest 1 View 09/15/2022 3:26 PM REASON FOR EXAM: Male, 67 years old. CHEST PAIN mental status change, htn COMPARISON: 01/31/2020 TECHNIQUE: XR Chest 1 View FINDINGS: There is no demonstrated pleural abnormality. Normal heart size. Normal mediastinum. Normal miguelina. Prominent appearing increased interstitial lung markings. Normal visualized pulmonary arteries. There is atherosclerotic calcification of the aortic arch with tortuosity. There are diffuse degenerative changes of the visualized thoracic spine. There is degenerative osteoarthritis of the bilateral shoulders. There is no demonstrated abnormality of the visualized soft tissue structures of the upper abdomen. RAD/Chest 1 View (Portable) IMPRESSION: There are no acute findings. Electronically Signed: Jonathon Juárez MD at 17:34 EDT ,
[2022-09-15 15:44] LABS: ALB/GLOB Ratio 1.2 RATIO (0.9-2.4); AST(SGOT) 60 U/L (15-37); Alanine Aminotransfer ALT/SGPT 18 U/L (16-61); Albumin, Serum 3.9 g/dL (3.2-5.0); Alkaline Phosphatase 62 U/L (45-117); Anion Gap 10 (5-15); BUN 13 mg/dL (7-18); BUN/Creat Ratio 12.3 RATIO (10-20); Calcium,Total 8.9 mg/dL (8.5-10.1); Chloride 102 mmol/L (98-107); Creatinine, Serum 1.06 mg/dL (0.70-1.30); EST Glomerular Filtration Rate 74 mL/min (>60); Est Glom Filt Rate - Afr Amer 90 mL/min (>60); Estimated Creatinine Clearance 76.42 ml/min; Globulin 3.2 g/dL (2.2-4.2); Glucose 119 mg/dL (74-106); Potassium 3.5 mmol/L (3.5-5.1); Protein, Total 7.1 g/dL (6.4-8.2); Sodium Level 136 mmol/L (136-145); Troponin-I HS 28 pg/mL (3.0-78.0)
[2022-09-15 16:13] LABS: Mucous, Urine 0 SEEN /hpf (<or=2+); Red Blood Cells-Urine 0 SEEN /hpf (0-5); Squamous Epithelial Cells - UA 0 SEEN /hpf (0-5)
[2022-09-15 16:16] LABS: Color, Urine Yellow (Yellow); Glucose, Dipstick Normal (Normal); Ketone-Dipstick 15 mg/dl (Negative); Leukocyte Esterase-Dipstick 500 /ul (Negative); Nitrite-Dipstick Negative (Negative); Occult Blood-Urine 150 /ul (Negative); Protein-Dipstick 30 mg/dl (Negative); Urine Bilirubin Dipstick Negative (Negative); Urine Clarity Cloudy (Clear); Urine Urobilinogen Normal (Normal)
[2022-09-15 16:21] LABS: White Blood Cells >100 SEEN /hpf (0-5)
[2022-09-15 16:22] LABS: Bacteria 3+ /hpf (None Seen)
[2022-09-15 16:34] VITALS: BP 139/74; PULSE 92; RESP 24; O2SAT 94
--- NOTE | 2022-09-15 16:49 | HP.PCM.HOS_ITS ---
[facility] - General General Date of Service: 09/15/22 Chief Complaint: change in mental status. HPI Narrative NANCY LEVY, is a 67 M who presents from his nursing home with change in mental status. EMS was contacted as patient a change of mental status where he was just standing and staring out at the television. Patient has no history of cognitive dysfunction and Parkinson's disease. No other resources are available other than the emergency room physicians history. The patient is awake but unable to provide any history. In the emergency room, patient was noted to have a urinary tract infection and received IV fluids as well as IV ciprofloxacin. Given his change in mental status with known known baseline, the hospital service was contacted for admission. History and physical from November 23, 2019 the patient was a very difficult historian at that time. [facility] Medical History (Updated 09/15/22 @ 16:[address] Vinnie Avina, ) Anxiety Depression Hemorrhoids History of Parkinson's disease Hypertension Hypothyroid Schizophrenia SOB (shortness of breath) Home Medications benztropine 2 mg tablet 2 mg PO BID extrapyramidal symptoms 11/23/19 [History Last Taken 11/23/19] levothyroxine 150 mcg tablet 150 mcg PO DAILY thyroid 11/23/19 [History Last Taken 11/22/19] lisinopril 20 mg tablet 20 mg PO DAILY blood pressure 11/23/19 [History Last Taken 11/23/19] lorazepam 0.5 mg tablet 0.5 mg PO THSA 11/23/19 [History Last Taken 11/23/19] lorazepam 1 mg tablet 1 mg PO BID anxiety 11/23/19 [History Last Taken 11/23/19] trazodone 100 mg tablet 100 mg PO QHS depression 11/23/19 [History Last Taken 11/22/19] polyethylene glycol 3350 17 gram/dose oral powder (Miralax) 17 g PO DAILY #510 grams 04/25/22 [Rx Last Taken Unknown] budesonide-formoterol HFA 160 mcg-4.5 mcg/actuation aerosol inhaler (Symbicort) 2 puff inhalation BID 08/06/22 [History Last Taken Unknown] calcium carbonate 200 mg calcium (500 mg) chewable tablet (Leandro-Gest Antacid) 500 mg PO BID 08/06/22 [History Last Taken Unknown] crshcykavfdaydimpadiqr-flyxnthz-jltsaifs 80 0.5 %-1 %-0.5 % eye drops (Refresh Digital) 1 drp EACH EYE TID 08/06/22 [History Last Taken Unknown] ipratropium bromide 42 mcg (0.06 %) nasal spray 1 spray intranasal BID 08/06/22 [History Last Taken Unknown] pantoprazole 40 mg tablet,delayed release 40 mg PO DAILY 08/06/22 [History Last Taken Unknown] pravastatin 40 mg tablet 40 mg PO QHS 08/06/22 [History Last Taken Unknown] terbinafine HCl 125 mg oral granules in packet 250 mg PO DAILY 08/06/22 [History Last Taken Unknown] albuterol sulfate 90 mcg/actuation aerosol inhaler 2 puff inhalation Q6H PRN Shortness Of Breath Or Wheezing 09/15/22 [History Last Taken Unknown] carbidopa 25 mg-levodopa 100 mg tablet (Sinemet) 2 tab PO TID 09/15/22 [History Last Taken Unknown] citalopram 10 mg tablet 10 mg PO DAILY 09/15/22 [History Last Taken Unknown] docusate sodium 100 mg capsule 200 mg PO DAILY 09/15/22 [History Last Taken Unknown] doxycycline hyclate 50 mg capsule 50 mg PO DAILY 09/15/22 [History Last Taken Unknown] lanolin alcohols-mineral oil-w.petrolatum-ceresin topical cream (Minerin Creme topical) 1 applic topical DAILY 09/15/22 [History Last Taken Unknown] rivastigmine tartrate 3 mg capsule 3 mg PO BID 09/15/22 [History Last Taken Unknown] terbinafine 1 % topical gel 1 ea topical BID 09/15/22 [History Last Taken Unknown] timolol maleate 0.5 % eye gel forming solution 1 drp EACH EYE QHS 09/15/22 [History Last Taken Unknown] Allergy/AdvReac Type Severity Reaction Status Date / Time Penicillins [PCN] Allergy Anaphylaxis Verified 09/15/22 14:31 Family History Father Colon cancer Mother Cancer Social History Smoking Status: Former smoker alcohol intake: never substance use type: does not use ROS Review of Systems ROS Unobtainable: due to mental condition Vital Signs Vital Signs Vital Signs: 09/15/22 14:34 09/15/22 14:38 09/15/22 16:34 Temperature 37.1 C Temperature Source Oral Pulse Rate 91 91 92 Respiratory Rate 26 H 24 H 24 H Blood Pressure 151/70 H 142/71 H 139/74 H Blood Pressure Mean 97 94 95 Pulse Ox 97 96 94 Oxygen Delivery Method Room Air Room Air Room Air Weight Weight: 95.1 kg Body Mass Index (BMI) 27.6 Physical Exam Const Constitutional Narrative: Awake. Asked patient where he is says apple. Later says that he wants an apple. HEENT normocephalic and head/scalp atraumatic; Negative for moist oral mucous m embranes HEENT Narrative: Mucous membranes are dry Eyes PERRL Eyes Narrative: No icterus Neck no lymphadenopathy Neck Narrative: No thyromegaly Resp normal respiratory effort, no retractions, no use of accessory muscles and clear to auscultation bilaterally Cardio regular rate, regular rhythm, S1 normal heart sound and S2 normal heart sound GI normal to inspection, nondistended, normoactive bowel sounds, soft to palpation, non-tender, non-distended and hepatosplenomegaly Extremity normal to inspection and no clubbing, cyanosis or edema Neuro moves all extremities and no focal motor deficits Sensorium / Orientation: awake; Negative for alert Results Lab / Micro Data Result Diagrams: 09/15/22 15:15 09/15/22 15:15 Labs: Laboratory Results - last 24 hr 09/15/22 15:15: WBC 14.9 H, RBC 4.70, Hgb 14.2, Hct 41.9, MCV 89.1, MCH 30.2, MCHC 33.9, RDW Std Deviation 44.6 H, RDW Coeff of Evelin 13.6, Plt Count 189, MPV 9.3, Immature Gran % (Auto) 0.800, Neut % (Auto) 86.7 H, Lymph % (Auto) 4.7 L, [place] % (Auto) 7.5, Eos % (Auto) 0.0, Baso % (Auto) 0.3, Absolute Neuts (auto) 12.9 H, Absolute Lymphs (auto) 0.70 L, Nucleated RBC % 0 09/15/22 15:15: Sodium 136, Potassium 3.5, Chloride 102, Carbon Dioxide 24.0, Anion Gap 10, BUN 13, Creatinine 1.06, Estim Creat Clear Calc 76.42, Est GFR (MDRD) Af Amer 90, Est GFR (MDRD) Non-Af 74, BUN/Creatinine Ratio 12.3, Glucose 119 H, Calcium 8.9, Total Bilirubin 1.40 H, AST 60 H, ALT 18, Alkaline Ph osphatase 62, Troponin I High Sens 28, Total Protein 7.1, Albumin 3.9, Globulin 3.2, Albumin/Globulin Ratio 1.2 09/15/22 16:05: Urine Color Yellow, Urine Clarity Cloudy, Urine pH 7.0, Ur Specific Simon 1.010, Urine Protein 30 H, Urine Glucose (UA) Normal, Urine Ketones 15 H, Urine Occult Blood 150 H, Urine Nitrite Negative, Urine Bilirubin Negative, Urine Urobilinogen Normal, Ur Leukocyte Esterase 500 H, Urine RBC 0 SEEN, Urine WBC >100 SEEN, Ur Squamous Epith Cells 0 SEEN, Urine Bacteria 3+, Urine Mucus 0 SEEN Micro: Microbiology 09/15/22 15:05 Nasal Secretion SARS-CoV-2 Antigen (Rapid) - Final EKG Initial EKG: Attestation: I personally reviewed and interpreted this EKG as follows: Prior EKG tracings: available for review EKG Rhythm Intrepretation: Sinus Rhythm (Right bundle branch block. Unchanged from EKG on November 24, 2019.) Radiology Impression Brain CT 09/15/22 14:51 IMPRESSION: There are no acute intracranial findings. Electronically Signed: Jonathon Juárez MD at 15:43 EDT Reading Location ID and State: [facility] / [place] , Service support , Assessment & Plan Assessment/Plan (1) Metabolic encephalopathy: PLAN: Patient apparently worse than baseline but patient has a poor baseline to begin with. Likely due to the patient's underlying Parkinson's disease, cognitive disability as well as urinary tract infection and dehydration. This also compounded by the patient's numerous medications that he takes: Including trazodone, rivastigmine, lorazepam, citalopram benztropine. Plan: * Treat the UTI and dehydration * I reviewed the patient's OARRS and it shows the patient has been receiving lorazepam chronically. I am not going to discontinue that but patient does have 1/2 mg dosing which I going to hold and make his 1 mg twice daily dosing as needed instead of scheduled. Hold the rivastigmine for now. * Avoid new potentiating medications * PT OT evaluate and treat. Case management to assist with discharge planning. (2) Acute UTI: PLAN: Received Cipro in the ED Continue ceftriaxone Follow-up urine cultures PLAN: Plan Chronic conditions * Psychosis: Continue with benztropine * Parkinson's disease: Continue with the Sinemet * Hypertension: Stable. Continue with the lisinopril. * Hypothyroidism: Continue levothyroxine * Hyperlipidemia: Continue with statin VTE prophylaxis: Low molecular weight heparin Charges/Coding Visit Charges Inpatient E&M: 31540 Init Hosp L3
[2022-09-15 16:56] VITALS: BP 139/74; PULSE 89; RESP 24; TEMP 37.2; O2SAT 94
[2022-09-15 17:08] LABS: Lactic Acid 0.9 mmol/L (0.4-1.9)
[2022-09-15] MEDS: Ciprofloxacin 400 MG/200 ML BAG 200 MG IV (17:16)
[2022-09-15 17:56] VITALS: BMI 28.8
[2022-09-15] MEDS: LORazepam 1 MG Tablet PO (18:24)
[2022-09-15 18:26] VITALS: BP 142/79; PULSE 97; RESP 20; TEMP 36.7; O2SAT 98
--- NOTE | 2022-09-15 19:08 | NURSING ---
spoke with [facility]; pt has an appt with neurologist on 09/19 ? Lewy Body Dementia; states have been falling a lot at [facility]; unsure of when he received Flu vaccine;
[2022-09-15] MEDS: Ipratropium Bromide 0.06% NASAL SPRAY 1 SPRAY NASAL (20:58)
[2022-09-15] MEDS: Pravastatin 40 MG Tablet PO (20:58)
[2022-09-15] MEDS: Benztropine 2 MG Tablet PO (20:58)
[2022-09-15] MEDS: Timolol 0.5% 5ML OPTH.BTL 1 DRP EACH EYE (20:59)
[2022-09-15] MEDS: Carboxymethylcellulose sodium gel dropperette 1 EACH EACH EYE (20:59)
[2022-09-15 23:30] VITALS: BP 157/68; PULSE 99; RESP 20; TEMP 36.9; O2SAT 96
[2022-09-16] VITALS (10 sets, daily range): BP systolic 129–154; BP diastolic 72–80; PULSE 73–85; RESP 16–24; TEMP 36.6–37.2; O2SAT 95–98
[2022-09-16] MEDS: LORazepam 1 MG Tablet PO ×2 (05:24→15:54)
[2022-09-16] MEDS: Levothyroxine 150 MCG Tablet PO (05:25)
[2022-09-16] MEDS: Carboxymethylcellulose sodium gel dropperette 1 EACH EACH EYE ×3 (05:25→21:53)
[2022-09-16] MEDS: Carbidopa/Levodopa 25/100 Tablet PO ×3 (06:14→15:57)
[2022-09-16 06:32] LABS: Absolute Lymphocyte Count 0.82 X10^3/uL (0.83-4.51); Absolute Neutrophil Count 12.8 X10^3/uL (2.0-7.7); Basophil# 0.03 X10^3/uL; Basophil% 0.2 % (0-1); Hematocrit 38.9 % (40-54); Hemoglobin 12.9 g/dL (13.0-16.5); Lymphocyte # 0.82 X10^3/ul (0.83-4.51); Lymphocyte % 5.5 % (19-41); Mean Corp Hgb Conc 33.2 g/dL (32-36); Mean Corpuscular Hgb 29.5 pg (27.0-32.0); Mean Corpuscular Volume 88.8 fL (80-94); Monocyte# 1.19 X10^3/uL; NRBC Flagged by Analyzer 0 % (0-5); Neutrophil % 85.6 % (47-70); Platelet Count 153 K/mm3 (150-450); RBC Distribution Width CV 13.6 % (11.6-14.6); RBC Distribution Width SD 44.7 fl (35.1-43.9); Red Blood Count 4.38 M/mm3 (4.6-6.2)
[2022-09-16 06:57] LABS: Anion Gap 8 (5-15); BUN 9 mg/dL (7-18); BUN/Creat Ratio 12.1 RATIO (10-20); Calcium,Total 8.2 mg/dL (8.5-10.1); Chloride 104 mmol/L (98-107); Creatinine, Serum 0.74 mg/dL (0.70-1.30); EST Glomerular Filtration Rate 111 mL/min (>60); Est Glom Filt Rate - Afr Amer 135 mL/min (>60); Estimated Creatinine Clearance 78.68 ml/min; Glucose 114 mg/dL (74-106); Potassium 3.3 mmol/L (3.5-5.1); Sodium Level 136 mmol/L (136-145)
--- NOTE | 2022-09-16 09:46 | PN.HOSP_ITS ---
Subjective Subjective Apparent issues overnight, still a little bit confused. Objective Data Objective Data Vital Signs: Vital Signs Temp Pulse Resp BP Pulse Ox O2 Del Method 98.2 F 73 18 137/72 H 95 Room Air 09/16/22 08:58 09/16/22 08:58 09/16/22 08:58 09/16/22 08:58 09/16/22 08:58 09/16/22 08:58 Oxygen Delivery Method Room Air Weight: 218 lb Body Mass Index (BMI) 28.8 Intake & Output: Intake and Output for Last 24 Hours 09/15/22 09/16/22 09/17/22 03:59 03:59 03:59 Intake Total 2660 / 2660 300 / 300 Output Total 1050 / 1050 550 / 550 Balance 1610 / 1610 -250 / -250 Lab / Micro Data Result Diagrams: 09/16/22 06:05 09/16/22 06:05 Labs: Laboratory Results - last 24 hr 09/15/22 15:15: WBC 14.9 H, RBC 4.70, Hgb 14.2, Hct 41.9, MCV 89.1, MCH 30.2, MCHC 33.9, RDW Std Deviation 44.6 H, RDW Coeff of Evelin 13.6, Plt Count 189, MPV 9.3, Immature Gran % (Auto) 0.800, Neut % (Auto) 86.7 H, Lymph % (Auto) 4.7 L, Cassia % (Auto) 7.5, Eos % (Auto) 0.0, Baso % (Auto) 0.3, Absolute Neuts (auto) 12.9 H, Absolute Lymphs (auto) 0.70 L, Nucleated RBC % 0 09/15/22 15:15: Sodium 136, Potassium 3.5, Chloride 102, Carbon Dioxide 24.0, Anion Gap 10, BUN 13, Creatinine 1.06, Estim Creat Clear Calc 76.42, Est GFR (MDRD) Af Amer 90, Est GFR (MDRD) Non-Af 74, BUN/Creatinine Ratio 12.3, Glucose 119 H, Calcium 8.9, Total Bilirubin 1.40 H, AST 60 H, ALT 18, Alkaline Phosphatase 62, Troponin I High Sens 28, Total Protein 7.1, Albumin 3.9, Globulin 3.2, Albumin/Globulin Ratio 1.2 09/15/22 16:05: Urine Color Yellow, Urine Clarity Cloudy, Urine pH 7.0, Ur Specific [place] 1.010, Urine Protein 30 H, Urine Glucose (UA) Normal, Urine Ketones 15 H, Urine Occult Blood 150 H, Urine Nitrite Negative, Urine Bilirubin Negative, Urine Urobilinogen Normal, Ur Leukocyte Esterase 500 H, Urine RBC 0 SEEN, Urine WBC >100 SEEN, Ur Squamous Epith Cells 0 SEEN, Urine Bacteria 3+, Urine Mucus 0 SEEN 09/15/22 16:30: Lactic Acid 0.9 09/16/22 06:05: WBC 15.0 H, RBC 4.38 L, Hgb 12.9 L, Hct 38.9 L, MCV 88.8, MCH 29.5, MCHC 33.2, RDW Std Deviation 44.7 H, RDW Coeff of Evelin 13.6, Plt Count 153, MPV 9.0, Immature Gran % (Auto) 0.700, Neut % (Auto) 85.6 H, Lymph % (Auto) 5.5 L, Cassia % (Auto) 8.0, Eos % (Auto) 0.0, Baso % (Auto) 0.2, Absolute Neuts (auto) 12.8 H, Absolute Lymphs (auto) 0.82 L, Nucleated RBC % 0 09/16/22 06:05: Sodium 136, Potassium 3.3 L, Chloride 104, Carbon Dioxide 24.0, Anion Gap 8, BUN 9, Creatinine 0.74, Estim Creat Clear Calc 78.68, Est GFR (MDRD) Af Amer 135, Est GFR (MDRD) Non-Af 111, BUN/Creatinine Ratio 12.1, Glucose 114 H, Calcium 8.2 L Micro: Microbiology 09/15/22 15:05 Nasal Secretion SARS-CoV-2 Antigen (Rapid) - Final Radiography Diagnostic Testing: Radiology Impression Brain CT 09/15/22 14:51 IMPRESSION: There are no acute intracranial findings. Electronically Signed: Jonathon Juárez MD at 15:43 EDT Reading Location ID and State: [facility] / [place] , Service support , Chest X-Ray 09/15/22 15:27 IMPRESSION: There are no acute findings. Electronically Signed: Jonathon Juárez MD at 17:34 EDT , Physical Exam Narrative General: Alert, confused, Cooperative, No apparent distress HEENT: Atraumatic, PERRLA, EOMI, Normocephalic Oral: Moist Mucosa Neck: Supple, No JVD Lungs: Clear to auscultation, Normal air movement, No rhonchi, No wheeze, No rales Cardiovascular: Regular rate, Regular Rhythm, Normal S1, Normal S2, No murmurs Abdomen: Soft, Non Tender, Non-Distended, No Hepato-splenomegaly Extremities: No edema, Capillary Refill Less than 3 Seconds Skin: No rashes, No breakdown Musculoskeletal: No Tenderness to Palpation of Joints or Extremities Neurological: Cranial nerves II-XII grossly intact, Motor Exam 5/5 strength throughout, Sensory exam intact to light touch and pain Psych/Mental Status: Flat affect, Appropriate Assessment & Plan Assessment/Plan (1) Metabolic encephalopathy: PLAN: ? Due to combination of his UTI and dehydration as well as his baseline of Parkinson's disease and cognitive disability ? Continue with IV antibiotics awaiting culture data ? PT/OT ? Continue the adjustments to Ativan made on admission, will hold his rivastigmine as well (2) Acute UTI: PLAN: ? Continue with Cipro secondary to anaphylaxis for penicillins, would not do cephalosporins ? Follow-up urine cultures and blood cultures PLAN: Plan Chronic conditions * Psychosis: Continue with benztropine * Parkinson's disease: Continue with the Sinemet * Hypertension: Stable. Continue with the lisinopril. * Hypothyroidism: Continue levothyroxine * Hyperlipidemia: Continue with statin VTE prophylaxis: Low molecular weight heparin Charges/Coding Visit Charges Inpatient E&M: 09929 Subs Hosp L2
[2022-09-16] MEDS: Enoxaparin 40 MG/0.4 ML Syringe SC (10:23)
[2022-09-16] MEDS: Lisinopril 20 MG Tablet PO (10:23)
[2022-09-16] MEDS: Citalopram 10 MG Tablet PO (10:24)
[2022-09-16] MEDS: Benztropine 2 MG Tablet PO ×2 (10:24→21:52)
[2022-09-16] MEDS: Pantoprazole Sodium 40 MG Tablet PO (10:24)
[2022-09-16] MEDS: Polyethylene Glycol 3350 17 GM PACKET PO (10:24)
[2022-09-16] MEDS: Calcium Carbonate 500 MG Tablet PO ×2 (10:24→15:58)
[2022-09-16] MEDS: Docusate Sodium 100 MG Capsule 200 MG PO (10:24)
[2022-09-16] MEDS: Ciprofloxacin 400 MG/200 ML BAG 200 MG IV ×2 (10:31→21:52)
[2022-09-16] MEDS: Ensure Plus High Protein 120 ML LIQUID PO ×2 (12:10→21:37)
[2022-09-16] MEDS: Albuterol 2.5 MG/3 ML VIAL.NEB. INHALATION ×2 (15:01→19:27)
[2022-09-16] MEDS: Budesonide Respules 0.5 MG/2 ML AMPUL.NEB. INHALATION (19:27)
[2022-09-16] MEDS: Timolol 0.5% 5ML OPTH.BTL 1 DRP EACH EYE (21:51)
[2022-09-16] MEDS: Ipratropium Bromide 0.06% NASAL SPRAY 1 SPRAY NASAL (21:51)
[2022-09-16] MEDS: Pravastatin 40 MG Tablet PO (21:52)
[2022-09-16] MEDS: 0.9% Saline Lock 10 ML Syringe IV (21:54)
[2022-09-17] VITALS (9 sets, daily range): BP systolic 139–168; BP diastolic 72–90; PULSE 71–91; RESP 16–20; TEMP 36.3–37; O2SAT 93–99
[2022-09-17] MEDS: LORazepam 1 MG Tablet PO ×3 (02:14→23:50)
[2022-09-17 05:00] LABS: Absolute Neutrophil Count 8.5 X10^3/uL (2.0-7.7); Basophil# 0.02 X10^3/uL; Basophil% 0.2 % (0-1); Eosinophil# 0.14 X10^3/uL; Eosinophils% 1.3 % (0-5); Hematocrit 36.5 % (40-54); Hemoglobin 12.2 g/dL (13.0-16.5); Lymphocyte % 11.7 % (19-41); Mean Corp Hgb Conc 33.4 g/dL (32-36); Mean Corpuscular Hgb 29.5 pg (27.0-32.0); Mean Corpuscular Volume 88.4 fL (80-94); Mean Platelet Vol. 9.5 fl (6.2-12.0); Monocyte# 1.06 X10^3/uL; Monocyte% 9.6 % (0-10); NRBC Flagged by Analyzer 0 % (0-5); Neutrophil % 76.6 % (47-70); Platelet Count 151 K/mm3 (150-450); RBC Distribution Width CV 13.5 % (11.6-14.6); RBC Distribution Width SD 44.2 fl (35.1-43.9); Red Blood Count 4.13 M/mm3 (4.6-6.2); White Blood Count 11.1 K/mm3 (4.4-11.0)
[2022-09-17 05:38] LABS: Anion Gap 7 (5-15); BUN 10 mg/dL (7-18); BUN/Creat Ratio 14.6 RATIO (10-20); Calcium,Total 8.3 mg/dL (8.5-10.1); Chloride 98 mmol/L (98-107); Creatinine, Serum 0.69 mg/dL (0.70-1.30); EST Glomerular Filtration Rate 122 mL/min (>60); Est Glom Filt Rate - Afr Amer 148 mL/min (>60); Estimated Creatinine Clearance 78.68 ml/min; Glucose 105 mg/dL (74-106); Potassium 3.4 mmol/L (3.5-5.1); Sodium Level 133 mmol/L (136-145)
--- NOTE | 2022-09-17 07:00 | NURSING ---
Pt resting comfortably with eyes closed. Pt pulling at IV and vences when awake. Day shift nurse to give 0600 medications with morning medications. Sitter at bedside.
--- NOTE | 2022-09-17 09:34 | CASEMGMT ---
Addendum entered by Rowena nKapp 09/17/22 10:10: Received PC back from Caitlin Jones, social work case manager. Caitlin clarified pt must be able to ambulate on own with no assistance and also needs to be able to navigate stairs. Pt is own guardian and would make the decision on where to go if rehab is needed. Pt NOT seen by therapy yesterday due to lethargy from meds. ONDINA updated Dr. Dowd of [facility]. PLAN: Await therapy to determine if pt can walk w/o assistance. ROBYN Lange Original Note: Social Work SW called Caitlin Jones [facility], to confirm if pt can discharge back to [facility]. Left message requesting a call back. ONDINA unable to leave message for [facility] number listed on pt facesheet. Phone continued to ring. ROBYN Lange
[2022-09-17] MEDS: Ciprofloxacin 400 MG/200 ML BAG 200 MG IV ×2 (09:48→21:44)
[2022-09-17] MEDS: Docusate Sodium 100 MG Capsule 200 MG PO (09:49)
[2022-09-17] MEDS: Enoxaparin 40 MG/0.4 ML Syringe SC (09:49)
[2022-09-17] MEDS: Ipratropium Bromide 0.06% NASAL SPRAY 1 SPRAY NASAL ×2 (09:49→21:37)
[2022-09-17] MEDS: Polyethylene Glycol 3350 17 GM PACKET PO (09:49)
[2022-09-17] MEDS: Benztropine 2 MG Tablet PO ×2 (09:49→21:40)
[2022-09-17] MEDS: Citalopram 10 MG Tablet PO (09:50)
[2022-09-17] MEDS: Levothyroxine 150 MCG Tablet PO (09:50)
[2022-09-17] MEDS: Carbidopa/Levodopa 25/100 Tablet PO ×3 (09:50→16:24)
[2022-09-17] MEDS: Calcium Carbonate 500 MG Tablet PO ×2 (09:50→16:24)
[2022-09-17] MEDS: Pantoprazole Sodium 40 MG Tablet PO (09:50)
[2022-09-17] MEDS: Carboxymethylcellulose sodium gel dropperette 1 EACH EACH EYE ×3 (09:50→21:40)
[2022-09-17] MEDS: Lisinopril 20 MG Tablet PO (09:50)
[2022-09-17] MEDS: Ensure Plus High Protein 120 ML LIQUID PO ×3 (09:52→21:41)
--- NOTE | 2022-09-17 10:46 | PN.HOSP_ITS ---
Subjective Subjective Patient seen and examined. He was eating breakfast with assistance. He had no active complaints and denied any fever, chills, cough, chest pain, nausea or vomiting. Review of systems is otherwise negative. Objective Data Objective Data Vital Signs: Vital Signs Temp Pulse Resp BP Pulse Ox O2 Del Method 97.4 F L 80 18 162/88 H 99 Room Air 09/17/22 09:24 09/17/22 09:24 09/17/22 09:24 09/17/22 09:24 09/17/22 09:24 09/17/22 09:24 Oxygen Delivery Method Room Air Weight: 217 lb 15.995 oz Body Mass Index (BMI) 28.8 Intake & Output: Intake and Output for Last 24 Hours 09/15/22 09/16/22 09/17/22 23:59 23:59 23:59 Intake Total 1060 / 1060 3300 / 3300 Output Total 2450 / 2900 1000 / 1000 Balance 1060 / 1060 850 / 400 -1000 / -1000 Lab / Micro Data Result Diagrams: 09/17/22 04:47 09/17/22 04:47 Labs: Laboratory Results - last 24 hr 09/17/22 04:47: WBC 11.1 H, RBC 4.13 L, Hgb 12.2 L, Hct 36.5 L, MCV 88.4, MCH 29.5, MCHC 33.4, RDW Std Deviation 44.2 H, RDW Coeff of Evelin 13.5, Plt Count 151, MPV 9.5, Immature Gran % (Auto) 0.600, Neut % (Auto) 76.6 H, Lymph % (Auto) 11.7 L, [place] % (Auto) 9.6, Eos % (Auto) 1.3, Baso % (Auto) 0.2, Absolute Neuts (auto) 8.5 H, Absolute Lymphs (auto) 1.30, Nucleated RBC % 0 09/17/22 04:47: Sodium 133 L, Potassium 3.4 L, Chloride 98, Carbon Dioxide 28.0, Anion Gap 7, BUN 10, Creatinine 0.69 L, Estim Creat Clear Calc 78.68, Est GFR (MDRD) Af Amer 148, Est GFR (MDRD) Non-Af 122, BUN/Creatinine Ratio 14.6, Glu cose 105, Calcium 8.3 L Micro: Microbiology 09/15/22 16:05 Urine Catheter - Catheter Urine Culture - Final Klebsiella pneumoniae sp pneum 09/15/22 15:15 Blood Culture (Wb) - Right Forearm Blood Culture - Preliminary No growth in 48 hours. 09/15/22 15:05 Blood Culture (Wb) - Left Forearm Blood Culture - Preliminary No growth in 48 hours. 09/15/22 15:05 Nasal Secretion SARS-CoV-2 Antigen (Rapid) - Final Physical Exam Const alert, oriented x3 and no apparent distress Orientation / Consciousness: lethargic HEENT head/scalp atraumatic and moist oral mucous membranes Head and Scalp: normocephalic Mouth: oral and palatal mucosa normal and dry mucous membranes Eyes PERRL, EOMs intact bilaterally and conjunctivae normal Neck no lymphadenopathy and supple Resp normal respiratory effort, no retractions, no use of accessory muscles and clear to auscultation bilaterally Cardio regular rate, regular rhythm, S1 normal heart sound, S2 normal heart sound and no murmurs GI normal to inspection, nondistended, normoactive bowel sounds, soft to palpation, non-tender and non-distended Extremity normal to inspection, full ROM and no clubbing, cyanosis or edema Neuro oriented x3, CN's II-XII intact bilaterally, moves all extremities and no focal motor deficits Sensorium / Orientation: awake and alert Coordination / Balance: [id number] test normal Motor Exam: strength 5/5 throughout Psych affect normal Assessment & Plan Assessment/Plan (1) Metabolic encephalopathy: (2) Acute UTI: PLAN: Plan #Acute metabolic encephalopathy * due to UTI and dehydration * resolving. More communicative now * on Iv ciprofloxacin * urine culture growing Klebsiella, sensitive to Ciprofloxacin * #UTI * on IV ciprofloxacin. Urine cultures pending. * * #Debility due to UTI and dehydration * now a 3 person assist. * PT.OT on board. Fall precautions * may need placement to get his strength back before going back to [facility] * #Hypokalemia: K is 3.4. Will replace and trend. #Parkinson's disease: on Sinemet #Hypertension: on lisinopril #Hypothyroidism; on synthroid #Hyperlipidemia: on statin #DVT prophylaxis: lovenox Charges/Coding Visit Charges Inpatient E&M: 08571 Subs Hosp L2
--- NOTE | 2022-09-17 11:56 | CASEMGMT ---
Social Work SW spoke to pt who stated believes has HCPOA but not sure who agent is. Called pt CM from nursing home, [facility]. Deniz stated unaware of any HCPOA and pt would be his own decision maker. Pt is confused at this time and unable to make decisions. Rowena Knapp, ROBYN
[2022-09-17] MEDS: Albuterol 2.5 MG/3 ML VIAL.NEB. INHALATION (13:11)
[2022-09-17] MEDS: Budesonide Respules 0.5 MG/2 ML AMPUL.NEB. INHALATION (13:11)
[2022-09-17] MEDS: Timolol 0.5% 5ML OPTH.BTL 1 DRP EACH EYE (21:38)
[2022-09-17] MEDS: Pravastatin 40 MG Tablet PO (21:40)
[2022-09-18] VITALS (11 sets, daily range): BP systolic 136–175; BP diastolic 84–97; PULSE 70–93; RESP 16–20; TEMP 36.4–37.7; O2SAT 95–98
--- NOTE | 2022-09-18 00:05 | NURSING ---
pts bedexit was going off, as staff was on the way, unwitnessed, but heard pt fall OOB. staff assisted pt off the floor to bed and vitals/ neuro checks were completed. pt assisted to BR d/t statement of yeah in regards to having to have a BM. pt likely hit head, as evident reddened lump on base of skull. reddened bump on rt elbow. pt denies dizziness/ pain. neuro checks WNL. MD Anderson was notified and new orders for continuing neuro checks and ice pack to affected areas.
[2022-09-18] MEDS: Acetaminophen 325 MG Tablet 650 MG PO ×2 (00:59→21:31)
--- NOTE | 2022-09-18 02:02 | CT_ITS ---
STUDY: CT BRAIN WITHOUT CONTRAST REASON FOR EXAM: Male, 67 years old. FALL/HEAD INJURY RADIATION DOSAGE (If Supplied By Facility): CTDIvol = ( 44.99 ) mGy, DLP = ( 863.60 ) mGycm TECHNIQUE: Transaxial CT imaging of the brain was performed without administration of intravenous contrast material. Individualized dose optimization techniques were used for this CT. COMPARISON: 09/15/2022 FINDINGS: Normal soft tissue structures. Normal calvarium. There is mild cerebral findings with widening of the extra-axial spaces and ventricular dilatation. Thin corpus callosum. There are areas of decreased attenuation within the white matter tracts of the supratentorial brain, consistent with microvascular disease changes. Normal basal ganglia and thalami. Normal brainstem. Normal cerebellum. There is no intracranial hemorrhage. There are no findings of an acute ischemic infarction. Normal visualized paranasal sinuses. CT/Brain/Head without Contrast IMPRESSION: No acute abnormal intracranial finding. Electronically Signed: Jossue Davila MD at 2:39 EDT ,
[2022-09-18] MEDS: QUEtiapine 25 MG Tablet PO ×2 (02:07→16:06)
[2022-09-18 07:01] LABS: Absolute Lymphocyte Count 0.78 X10^3/uL (0.83-4.51); Basophil# 0.01 X10^3/uL; Basophil% 0.2 % (0-1); Eosinophil# 0.18 X10^3/uL; Eosinophils% 3.2 % (0-5); Hematocrit 35.8 % (40-54); Hemoglobin 12.2 g/dL (13.0-16.5); Lymphocyte # 0.78 X10^3/ul (0.83-4.51); Lymphocyte % 13.9 % (19-41); Mean Corp Hgb Conc 34.1 g/dL (32-36); Mean Corpuscular Hgb 29.3 pg (27.0-32.0); Mean Corpuscular Volume 85.9 fL (80-94); Mean Platelet Vol. 9.5 fl (6.2-12.0); Monocyte# 0.56 X10^3/uL; NRBC Flagged by Analyzer 0 % (0-5); Neutrophil # 4.04 X10^3/uL (2.7-7.7); Neutrophil % 72.2 % (47-70); Platelet Count 171 K/mm3 (150-450); RBC Distribution Width CV 13.2 % (11.6-14.6); RBC Distribution Width SD 41.6 fl (35.1-43.9); Red Blood Count 4.17 M/mm3 (4.6-6.2); White Blood Count 5.6 K/mm3 (4.4-11.0)
[2022-09-18 07:31] LABS: Anion Gap 8 (5-15); BUN 6 mg/dL (7-18); BUN/Creat Ratio 10.2 RATIO (10-20); Calcium,Total 8.5 mg/dL (8.5-10.1); Chloride 97 mmol/L (98-107); Creatinine, Serum 0.59 mg/dL (0.70-1.30); EST Glomerular Filtration Rate 146 mL/min (>60); Est Glom Filt Rate - Afr Amer 177 mL/min (>60); Estimated Creatinine Clearance 78.68 ml/min; Glucose 106 mg/dL (74-106); Potassium 3.1 mmol/L (3.5-5.1); Sodium Level 132 mmol/L (136-145)
[2022-09-18] MEDS: Potassium Chloride Oral Tablet 20 MEQ 40 MEQ PO (09:41)
[2022-09-18] MEDS: Levothyroxine 150 MCG Tablet PO (09:47)
[2022-09-18] MEDS: Carboxymethylcellulose sodium gel dropperette 1 EACH EACH EYE ×3 (09:48→21:32)
[2022-09-18] MEDS: Calcium Carbonate 500 MG Tablet PO ×2 (09:49→16:07)
[2022-09-18] MEDS: Ipratropium Bromide 0.06% NASAL SPRAY 1 SPRAY NASAL ×2 (09:50→21:32)
[2022-09-18] MEDS: Ciprofloxacin 400 MG/200 ML BAG 200 MG IV ×2 (09:50→21:34)
[2022-09-18] MEDS: Citalopram 10 MG Tablet PO (09:50)
[2022-09-18] MEDS: Benztropine 2 MG Tablet PO ×2 (09:51→21:34)
[2022-09-18] MEDS: Lisinopril 20 MG Tablet PO (09:52)
[2022-09-18] MEDS: Enoxaparin 40 MG/0.4 ML Syringe SC (09:52)
[2022-09-18] MEDS: Pantoprazole Sodium 40 MG Tablet PO (09:52)
--- NOTE | 2022-09-18 09:53 | CASEMGMT ---
Addendum entered by Rowena Knapp 09/18/22 12:16: Previous confusion was reported by pt Nurse. SW in to speak with pt at this time to assess and determine pt mental status changes from previous day. Pt sitting in bedside chair with cup of coffee and watching TV. Pt smiled as SW entered. Pt agreeble to discussion. SW asked questions to determine pt orientation. Pt alert to person and time (late morning). Pt originally confused as to place, however after looking around pt able to report was in hospital and felt tired. Pt shared feels much stronger today than previous day and asked when could go home. Pt able to provide the name of [facility] and also PCP, Dr. Brown. Pt appears more oriented this day than yesterday. Pt stated looking forward to physical therapy so could walk around. Pt reported falling last evening and some soreness. SW to await therapy progress notes from this day to continue plan with on pt discharge plan. ROBYN Lange Original Note: Social Work Pt continues to be confused. Still unable to care for self independently. SW spoke to pt CM, Caitlin Kinney, from [facility]. Discussed likely SNF placement. Caitlin ferreira pt was confused prior to admit at hospital and was seeing Dr. Brown for review of Dementia diagnosis. Pt was scheduled for neuro consult/appointment for today 09/18/22 but was canceled due to being admitted at [facility]. Pt has a brother. Caitlin reported pt's brother has severe MH concerns and pt and brother do not speak often. Caitlin believes pt's brother would be poor health care decision maker for pt as the brother's mental health is questionable. Caitlin reports has no contact info for pt's brother. PLAN: TBD ROBYN Lange
[2022-09-18] MEDS: Ensure Plus High Protein 120 ML LIQUID PO ×4 (10:01→21:34)
[2022-09-18] MEDS: Carbidopa/Levodopa 25/100 Tablet PO ×2 (10:03→15:33)
[2022-09-18] MEDS: Budesonide Respules 0.5 MG/2 ML AMPUL.NEB. INHALATION (13:52)
[2022-09-18] MEDS: Albuterol 2.5 MG/3 ML VIAL.NEB. INHALATION (13:52)
--- NOTE | 2022-09-18 15:07 | CASEMGMT ---
Addendum entered by Rowena Knapp 09/18/22 15:48: ONDINA called Caitlin once again to inform pt likely to be discharged tomorrow and information on ability to return should be provided rosalina. Otherwise alternative plan will need to be put in place. Caitlin voiced understanding. Original Note: Social Work SW called pt CM, Caitlin Jones, to update on pt progress made. ONDINA informed Caitlin that pt confusion clearing up, pt oriented x3 and has been ambulating well on his own during physical therapy sessions. Caitlin shared intent to give this ONDINA contact number to Caitlin's supervisior Luh, as Luh will have thing to discuss and evaluate before pt allowed to return back to his home at [facility]. ONDINA also informed Caitlin that pt is allowed visitors and Caitlin or Luh could come to hospital to see pt and assess progress. ONDINA asked if Caitlin would like clinical update on pt Physical therapy and medical levels for UTI. Caitlin confirmed yes. ONDINA [facility]. PLAN: Return Home to [facility], when medically ready. ROBYN Lange
--- NOTE | 2022-09-18 15:09 | PN.HOSP_ITS ---
Subjective Subjective Patient seen and examined. He was alert but confused. Per his nurse, he had fallen out of bed and had to stay overnight. CT of the brain showed no acute intracranial pathology. Unable to do review of systems due to confusion. Objective Data Objective Data Vital Signs: Vital Signs Temp Pulse Resp BP Pulse Ox O2 Del Method O2 Flow Rate 98.5 F 83 16 136/86 H 96 Room Air 97 09/18/22 14:00 09/18/22 14:00 09/18/22 14:00 09/18/22 14:00 09/18/22 14:00 09/18/22 14:00 09/18/22 10:40 Oxygen Flow Rate (L/min) 97 Oxygen Delivery Method Room Air Weight: 217 lb 15.995 oz Body Mass Index (BMI) 28.8 Intake & Output: Intake and Output for Last 24 Hours 09/16/22 09/17/22 09/18/22 23:59 23:59 23:59 Intake Total 3300 / 3300 1500 / 1500 200 / 200 Output Total 2450 / 2900 2550 / 2550 4750 / 4750 Balance 850 / 400 -1050 / -1050 -4550 / -4550 Lab / Micro Data Result Diagrams: 09/18/22 05:45 09/18/22 05:45 Labs: Laboratory Results - last 24 hr 09/18/22 05:45: WBC 5.6, RBC 4.17 L, Hgb 12.2 L, Hct 35.8 L, MCV 85.9, MCH 29.3, MCHC 34.1, RDW Std Deviation 41.6, RDW Coeff of Evelin 13.2, Plt Count 171, MPV 9.5, Immature Gran % (Auto) 0.500, Neut % (Auto) 72.2 H, Lymph % (Auto) 13.9 L, [place] % (Auto) 10.0, Eos % (Auto) 3.2, Baso % (Auto) 0.2, Absolute Neuts (auto) 4.0, Absolute Lymphs (auto) 0.78 L, Nucleated RBC % 0 09/18/22 05:45: Sodium 132 L, Potassium 3.1 L, Chloride 97 L, Carbon Dioxide 27.0, Anion Gap 8, BUN 6 L, Creatinine 0.59 L, Estim Creat Clear Calc 78.68, Est GFR (MDRD) Af Amer 177, Est GFR (MDRD) Non-Af 146, BUN/Creatinine Ratio 10.2, Glucose 106, Calcium 8.5 Micro: Microbiology 09/15/22 16:05 Urine Catheter - Catheter Urine Culture - Final Klebsiella pneumoniae sp pneum 09/15/22 15:15 Blood Culture (Wb) - Right Forearm Blood Culture - Preliminary No growth in 48 hours. 09/15/22 15:05 Blood Culture (Wb) - Left Forearm Blood Culture - Preliminary No growth in 48 hours. 09/15/22 15:05 Nasal Secretion SARS-CoV-2 Antigen (Rapid) - Final Radiography Diagnostic Testing: Radiology Impression Brain CT 09/18/22 02:02 IMPRESSION: No acute abnormal intracranial finding. Electronically Signed: Jossue Davila MD at 2:39 EDT , Physical Exam Const alert Constitutional Narrative: confused. Orientation / Consciousness: confused HEENT normocephalic, head/scalp atraumatic and moist oral mucous membranes Eyes PERRL, EOMs intact bilaterally and conjunctivae normal Eyes Narrative: No icterus Neck no lymphadenopathy and supple Resp normal respiratory effort, no retractions, no use of accessory muscles and clear to auscultation bilaterally Cardio regular rate, regular rhythm, S1 normal heart sound, S2 normal heart sound and no murmurs GI normal to inspection, nondistended, normoactive bowel sounds, soft to palpation, non-tender, non-distended and hepatosplenomegaly Extremity normal to inspection, full ROM and no clubbing, cyanosis or edema Neuro oriented x3, CN's II-XII intact bilaterally, moves all extremities and no focal motor deficits Sensorium / Orientation: awake and alert Coordination / Balance: [id number] test normal Motor Exam: strength 5/5 throughout Psych Psych Narrative: confused Assessment & Plan Assessment/Plan (1) Metabolic encephalopathy: (2) Acute UTI: PLAN: Plan #Acute metabolic encephalopathy * due to UTI and dehydration; confused still * on IV cipofloxacin. To complete a 5 day course. * urine culture growing Klebsiella, sensitive to Ciprofloxacin * #UTI * on IV ciprofloxacin. Urine cultures growing Klebsiella * * #Debility due to UTI and dehydration * now a 3 person assist. * PT.OT on board. Fall precautions * may need placement to get his strength back before going back to assisted * #Hypokalemia: K is 3.1 today. Will replace and trend. #Parkinson's disease: on Sinemet #Hypertension: on lisinopril #Hypothyroidism; on synthroid #Hyperlipidemia: on statin #DVT prophylaxis: lovenox Disposition: will need placement Charges/Coding Visit Charges Inpatient E&M: 22750 Subs Hosp L2
--- NOTE | 2022-09-18 15:22 | NURSING ---
PER ALEKSEY, PT WAS FOUND ON FLOOR BY SINK. VSS, PT DENYING PAIN. PT HAD BOWEL MOVEMENT. PT WAS CLEANED AND RETURNED TO BED. LOC APPEARS SAME PRIOR TO FALL
--- NOTE | 2022-09-18 16:01 | CASEMGMT ---
Social Work SW attempted to discuss SNF choice with pt, should he need to go for rehab. Pt fell on floor half hour ago. Pt resting now. Unable to discuss SNF choices and discharge plan. SW to follow up with pt on this matter tomorrow. Rowena Knapp, ROBYN
[2022-09-18] MEDS: LORazepam 1 MG Tablet PO ×2 (16:06→23:37)
[2022-09-18] MEDS: Timolol 0.5% 5ML OPTH.BTL 1 DRP EACH EYE (21:33)
[2022-09-18] MEDS: Pravastatin 40 MG Tablet PO (21:34)
[2022-09-19] VITALS (8 sets, daily range): BP systolic 146–160; BP diastolic 84–101; PULSE 68–76; RESP 16–18; TEMP 36.8–37.5; O2SAT 97–98
[2022-09-19] MEDS: Carbidopa/Levodopa 25/100 Tablet PO ×3 (03:39→16:15)
[2022-09-19] MEDS: Carboxymethylcellulose sodium gel dropperette 1 EACH EACH EYE ×3 (03:39→22:01)
[2022-09-19] MEDS: Levothyroxine 150 MCG Tablet PO (03:39)
[2022-09-19] MEDS: Acetaminophen 325 MG Tablet 650 MG PO (03:42)
[2022-09-19] MEDS: LORazepam 1 MG Tablet PO ×2 (03:42→17:26)
[2022-09-19 06:20] LABS: Absolute Lymphocyte Count 1.09 X10^3/uL (0.83-4.51); Absolute Neutrophil Count 4.6 X10^3/uL (2.0-7.7); Basophil# 0.02 X10^3/uL; Basophil% 0.3 % (0-1); Eosinophils% 1.5 % (0-5); Hematocrit 37.8 % (40-54); Hemoglobin 13.4 g/dL (13.0-16.5); Lymphocyte # 1.09 X10^3/ul (0.83-4.51); Lymphocyte % 16.1 % (19-41); Mean Corp Hgb Conc 35.4 g/dL (32-36); Mean Corpuscular Volume 84.6 fL (80-94); Mean Platelet Vol. 8.6 fl (6.2-12.0); Monocyte# 0.94 X10^3/uL; Monocyte% 13.9 % (0-10); NRBC Flagged by Analyzer 0 % (0-5); Neutrophil # 4.58 X10^3/uL (2.7-7.7); Neutrophil % 67.9 % (47-70); Platelet Count 198 K/mm3 (150-450); RBC Distribution Width CV 13.2 % (11.6-14.6); RBC Distribution Width SD 41.1 fl (35.1-43.9); Red Blood Count 4.47 M/mm3 (4.6-6.2); White Blood Count 6.8 K/mm3 (4.4-11.0)
[2022-09-19 06:44] LABS: Anion Gap 8 (5-15); BUN 6 mg/dL (7-18); BUN/Creat Ratio 10.9 RATIO (10-20); Calcium,Total 8.6 mg/dL (8.5-10.1); Chloride 96 mmol/L (98-107); Creatinine, Serum 0.55 mg/dL (0.70-1.30); EST Glomerular Filtration Rate 158 mL/min (>60); Est Glom Filt Rate - Afr Amer 192 mL/min (>60); Estimated Creatinine Clearance 78.68 ml/min; Glucose 118 mg/dL (74-106); Potassium 3.3 mmol/L (3.5-5.1); Sodium Level 129 mmol/L (136-145)
[2022-09-19] MEDS: Calcium Carbonate 500 MG Tablet PO ×2 (07:26→16:16)
[2022-09-19] MEDS: Lisinopril 20 MG Tablet PO (09:18)
[2022-09-19] MEDS: Pantoprazole Sodium 40 MG Tablet PO (09:18)
[2022-09-19] MEDS: Citalopram 10 MG Tablet PO (09:18)
[2022-09-19] MEDS: Benztropine 2 MG Tablet PO ×2 (09:18→22:02)
[2022-09-19] MEDS: Enoxaparin 40 MG/0.4 ML Syringe SC (09:18)
[2022-09-19] MEDS: Potassium Chloride Oral Tablet 20 MEQ 60 MEQ PO (09:18)
[2022-09-19] MEDS: Ipratropium Bromide 0.06% NASAL SPRAY 1 SPRAY NASAL ×2 (09:19→22:03)
[2022-09-19] MEDS: Ensure Plus High Protein 120 ML LIQUID PO ×4 (09:20→21:57)
[2022-09-19] MEDS: 0.9% Normal Saline 1,000 ML 125 ML IV ×2 (09:20→17:26)
[2022-09-19] MEDS: Ciprofloxacin 400 MG/200 ML BAG 200 MG IV ×2 (09:21→21:58)
[2022-09-19] MEDS: 0.9% Saline Lock 10 ML Syringe IV (09:22)
--- NOTE | 2022-09-19 11:11 | PN.HOSP_ITS ---
Subjective Subjective Patient seen and examined. He is alert but remains confused. Unable to do comprehensive review of systems due to confusion. He had assisted by him. He has otherwise remained hemodynamically stable. Objective Data Objective Data Vital Signs: Vital Signs Temp Pulse Resp BP Pulse Ox O2 Del Method O2 Flow Rate 98.4 F 68 16 160/92 H 98 Room Air 97 09/19/22 07:18 09/19/22 07:18 09/19/22 07:18 09/19/22 07:18 09/19/22 07:18 09/19/22 07:18 09/18/22 10:40 Oxygen Flow Rate (L/min) 97 Oxygen Delivery Method Room Air Weight: 217 lb 15.995 oz Body Mass Index (BMI) 28.8 Intake & Output: Intake and Output for Last 24 Hours 09/17/22 09/18/22 09/19/22 23:59 23:59 23:59 Intake Total 1500 / 1500 400 / 400 Output Total 2550 / 2550 5200 / 5200 1750 / 1750 Balance -1050 / -1050 -4800 / -4800 -1750 / -1750 Lab / Micro Data Result Diagrams: 09/19/22 06:11 09/19/22 06:11 Labs: Laboratory Results - last 24 hr 09/19/22 06:11: WBC 6.8, RBC 4.47 L, Hgb 13.4, Hct 37.8 L, MCV 84.6, MCH 30.0, MCHC 35.4, RDW Std Deviation 41.1, RDW Coeff of Evelin 13.2, Plt Count 198, MPV 8.6, Immature Gran % (Auto) 0.300, Neut % (Auto) 67.9, Lymph % (Auto) 16.1 L, [place] % (Auto) 13.9 H, Eos % (Auto) 1.5, Baso % (Auto) 0.3, Absolute Neuts (auto) 4.6, Absolute Lymphs (auto) 1.09, Nucleated RBC % 0 09/19/22 06:11: Sodium 129 L, Potassium 3.3 L, Chloride 96 L, Carbon Dioxide 25.0, Anion Gap 8, BUN 6 L, Creatinine 0.55 L, Estim Creat Clear Calc 78.68, Est GFR (MDRD) Af Amer 192, Est GFR (MDRD) Non-Af 158, BUN/Creatinine Ratio 10.9, Glucose 118 H, Calcium 8.6 Micro: Microbiology 09/18/22 23:00 Stool C. difficile DNA Amplification - Final 09/15/22 16:05 Urine Catheter - Catheter Urine Culture - Final Klebsiella pneumoniae sp pneum 09/15/22 15:15 Blood Culture (Wb) - Right Forearm Blood Culture - Preliminary No growth in 48 hours. 09/15/22 15:05 Blood Culture (Wb) - Left Forearm Blood Culture - Preliminary No growth in 48 hours. 09/15/22 15:05 Nasal Secretion SARS-CoV-2 Antigen (Rapid) - Final Physical Exam Const alert and no apparent distress Constitutional Narrative: confused. Orientation / Consciousness: confused HEENT normocephalic, head/scalp atraumatic and moist oral mucous membranes Head and Scalp: normocephalic Mouth: oral and palatal mucosa normal Eyes PERRL, EOMs intact bilaterally and conjunctivae normal Neck no lymphadenopathy and supple Resp normal respiratory effort, no retractions, no use of accessory muscles and clear to auscultation bilaterally Cardio regular rate, regular rhythm, S1 normal heart sound, S2 normal heart sound and no murmurs GI normal to inspection, nondistended, normoactive bowel sounds, soft to palpation, non-tender, non-distended and hepatosplenomegaly Extremity normal to inspection, full ROM and no clubbing, cyanosis or edema Neuro oriented x3, CN's II-XII intact bilaterally, moves all extremities and no focal motor deficits Sensorium / Orientation: awake and alert Coordination / Balance: [id number] test normal Motor Exam: strength 5/5 throughout Psych Psych Narrative: confused Assessment & Plan Assessment/Plan (1) Metabolic encephalopathy: (2) Acute UTI: PLAN: Plan #Acute metabolic encephalopathy * due to UTI and dehydration; still confused * on IV cipofloxacin. To complete a 5 day course. WIll dc tomorrow * urine culture growing Klebsiella, sensitive to Ciprofloxacin * #UTI * on IV ciprofloxacin. Urine cultures growing Klebsiella * will dc IV ciprofloxacin tomorrow once he completes 5 days of antibiotics * * #Debility due to UTI and dehydration * now a 3 person assist. * PT.OT on board. Fall precautions * may need placement to get his strength back before going back to [facility] * #Hypokalemia: K is 3.1 today. Will replace and trend. #Hyponatremia: * Na is down to 129. Will hydrate with IVF and trend. * If sodium doesnt increase, will do more extensive workup and consult nephrology. * #Parkinson's disease: on Sinemet #Hypertension: on lisinopril #Hypothyroidism; on synthroid #Hyperlipidemia: on statin #DVT prophylaxis: lovenox Disposition: * will need placement. * His correction is unable to take him back due to stability. * Patient not able to make his own decisions * Does not have any family. * Will need guardian appointed to make decisions for him. Charges/Coding Visit Charges Inpatient E&M: 71085 Subs Hosp L2
--- NOTE | 2022-09-19 13:42 | CASEMGMT ---
Social Work SW in to meet with pt. SW discussed mental status exam with pt and pt agreeable to completing the assessment. SW conducted assessment. Pt able to provide his name, date of and location. Pt oriented to season and state of location. Pt struggled to recall the year, reported it is 1994. Pt answered [place] when asked what county he resides in. Pt able to provide correct name of hospital and was able to identify several different objects in the room and what they are used for. Pt struggled with recalling certain things but when give reminders pt was able to provide correct answers. It has been documents in historical hospital documents that pt has severe chronic educational issues and this policy writer under impression that these educational delays were impeding pt's ability to answer questions on Mental exam correctly rather that pt's mental status. Pt scored an overall number of 11/30. SW discuss rehab with pt and the option of going to SNF for strength building. Pt agreeable, stated would like to get stronger and appeared eager for this. SW provided A printed list of SNF providers including quality and resource use data and consistent with the patient?s preferred geographic region, medical needs, and insurance network via the [facility]. Pt struggled with reading so SW read options to pt. Pt stated would like to remain in [place], as this is his home. As SW was reviewing options with pt, pt spoke up and requested [facility]. SW clarified pt [facility] with pt and pt stated yes, had heard of this longterm and fells he would be happy there. ROBYN Lange
[2022-09-19] MEDS: Timolol 0.5% 5ML OPTH.BTL 1 DRP EACH EYE (22:01)
[2022-09-19] MEDS: QUEtiapine 25 MG Tablet PO (22:02)
[2022-09-19] MEDS: Pravastatin 40 MG Tablet PO (22:02)
[2022-09-20] VITALS (9 sets, daily range): BP systolic 152–161; BP diastolic 88–94; PULSE 64–79; RESP 14–20; TEMP 36.6–37.1; O2SAT 94–98
[2022-09-20] MEDS: Levothyroxine 150 MCG Tablet PO (05:11)
[2022-09-20] MEDS: Carboxymethylcellulose sodium gel dropperette 1 EACH EACH EYE ×3 (05:11→22:20)
[2022-09-20 06:27] LABS: Absolute Lymphocyte Count 1.08 X10^3/uL (0.83-4.51); Absolute Neutrophil Count 4.4 X10^3/uL (2.0-7.7); Basophil# 0.02 X10^3/uL; Basophil% 0.3 % (0-1); Eosinophil# 0.13 X10^3/uL; Hematocrit 37.4 % (40-54); Hemoglobin 13.4 g/dL (13.0-16.5); Lymphocyte # 1.08 X10^3/ul (0.83-4.51); Lymphocyte % 16.5 % (19-41); Mean Corp Hgb Conc 35.8 g/dL (32-36); Mean Corpuscular Hgb 30.1 pg (27.0-32.0); Mean Platelet Vol. 8.8 fl (6.2-12.0); Monocyte# 0.93 X10^3/uL; Monocyte% 14.2 % (0-10); NRBC Flagged by Analyzer 0 % (0-5); Neutrophil # 4.35 X10^3/uL (2.7-7.7); Neutrophil % 66.4 % (47-70); Platelet Count 205 K/mm3 (150-450); RBC Distribution Width CV 13.5 % (11.6-14.6); RBC Distribution Width SD 41.8 fl (35.1-43.9); Red Blood Count 4.45 M/mm3 (4.6-6.2); White Blood Count 6.6 K/mm3 (4.4-11.0)
[2022-09-20 06:53] LABS: Anion Gap 7 (5-15); BUN 8 mg/dL (7-18); BUN/Creat Ratio 14.2 RATIO (10-20); Calcium,Total 8.5 mg/dL (8.5-10.1); Chloride 97 mmol/L (98-107); Creatinine, Serum 0.56 mg/dL (0.70-1.30); EST Glomerular Filtration Rate 153 mL/min (>60); Est Glom Filt Rate - Afr Amer 185 mL/min (>60); Estimated Creatinine Clearance 78.68 ml/min; Glucose 106 mg/dL (74-106); Potassium 3.7 mmol/L (3.5-5.1); Sodium Level 130 mmol/L (136-145)
[2022-09-20] MEDS: Carbidopa/Levodopa 25/100 Tablet PO ×3 (08:10→16:37)
[2022-09-20] MEDS: Calcium Carbonate 500 MG Tablet PO ×2 (08:11→16:37)
[2022-09-20] MEDS: Ipratropium Bromide 0.06% NASAL SPRAY 1 SPRAY NASAL ×2 (08:45→22:21)
[2022-09-20] MEDS: Benztropine 2 MG Tablet PO ×2 (08:46→22:23)
[2022-09-20] MEDS: Lisinopril 20 MG Tablet PO (08:47)
[2022-09-20] MEDS: Citalopram 10 MG Tablet PO (08:47)
[2022-09-20] MEDS: Ensure Plus High Protein 120 ML LIQUID PO ×4 (08:47→22:21)
[2022-09-20] MEDS: Pantoprazole Sodium 40 MG Tablet PO (08:47)
[2022-09-20] MEDS: Enoxaparin 40 MG/0.4 ML Syringe SC (08:48)
[2022-09-20] MEDS: Ciprofloxacin 400 MG/200 ML BAG 200 MG IV ×2 (10:12→22:16)
[2022-09-20] MEDS: 0.9% Saline Lock 10 ML Syringe IV ×2 (10:13→22:16)
--- NOTE | 2022-09-20 11:55 | CASEMGMT ---
Social Work Phone call to Caitlin Jones pt CM from the [facility] to discuss pt status and reviewed therapy notes. Caitlin did visit pt yesterday. Caitlin states that because pt is using a walker to ambulate, needs max A for toileting tasks and Mod A for lower body dressing, pt is unable to return to the custodial where he is residing. When asked about cognitive baseline for pt, Caitlin states pt has had a new and rapid decline over the last two months and therefore it is difficult to say what his new baseline is. EZEKIEL has been working with PCP to have pt assessed by neurology but this appointment had to be cancelled as pt was admitted to [facility] during appointment time. ONDINA spoke with Caitlin regarding emergency guardianship. Caitlin spoke with her facilities maintenance supervisor Juliette Sebastian and they state the [facility] does have someone who is willing to be pt's guardian. ONDINA informed Caitlin about yesterdays conversation with pt regarding SNF placement and Caitlin states if pt is transferred to [facility] the counseling center will work with [facility] to obtain guardianship. Phone call to Danielle at [facility]. ONDINA explained pt's current situation. Danielle states that if pt is agreeable to come to [facility], they will pursue guardianship and work with the counseling center once he gets to their facility. ONDINA met with pt and introduced self. Pt awake and alert lying in bed. ONDINA inquired how pt felt and pt able to state illnesses that he has. When asked where he was pt states [facility]. ONDINA inquired with pt if he was at [facility], a long term or a hospital. Pt able to identify that he was at a hospital. When asked where he lives pt is able to states he lives at [facility]. ONDINA informed pt that he cannot return to [facility] due to debility and need for a long term. Without prompt, pt states either [facility] or [facility]. ONDINA asked pt if he is agreeable to go to [facility] and pt confirms that he is. ONDINA collaborated with physician to discuss discharge plan for pt. Discussed options of discharging to [facility] and guardianship being pursued when he arrives there vs starting emergency guardianship here. Physician is agreeable to discharge to SNF if SNF is willing to work on guardianship once he arrives. ezequiel Roach training assistant updated and to send referral to [facility]. Plan: [facility], pending acceptance. ROBYN Kirk
--- NOTE | 2022-09-20 12:05 | CASEMGMT ---
Discharge Conversion Worker This junior copywriter sent referral to [facility] via [facility]. Will follow up. Sameera LEE Clay Carman
[2022-09-20] MEDS: Albuterol 2.5 MG/3 ML VIAL.NEB. INHALATION (13:45)
--- NOTE | 2022-09-20 13:52 | PN.HOSP_ITS ---
Subjective Subjective Patient seen and examined. He had no complaints. He was a bit more lucid today but still has periods of confusion. Review of systems otherwise negative. Objective Data Objective Data Vital Signs: Vital Signs Temp Pulse Resp BP Pulse Ox O2 Del Method O2 Flow Rate 98.7 F 79 18 160/94 H 98 Room Air 97 09/20/22 10:08 09/20/22 13:45 09/20/22 13:45 09/20/22 10:08 09/20/22 13:45 09/20/22 13:45 09/20/22 10:08 Oxygen Flow Rate (L/min) 97 Oxygen Delivery Method Room Air Weight: 217 lb 15.995 oz Body Mass Index (BMI) 28.8 Intake & Output: Intake and Output for Last 24 Hours 09/18/22 09/19/22 09/20/22 23:59 23:59 23:59 Intake Total 400 / 400 1287.5 / 1287.5 1800 / 1800 Output Total 5200 / 5200 4700 / 4700 1575 / 1575 Balance -4800 / -4800 -3412.5 / -3412.5 225 / 225 Lab / Micro Data Result Diagrams: 09/20/22 06:15 09/20/22 06:15 Labs: Laboratory Results - last 24 hr 09/20/22 06:15: WBC 6.6, RBC 4.45 L, Hgb 13.4, Hct 37.4 L, MCV 84.0, MCH 30.1, MCHC 35.8, RDW Std Deviation 41.8, RDW Coeff of Evelin 13.5, Plt Count 205, MPV 8.8, Immature Gran % (Auto) 0.600, Neut % (Auto) 66.4, Lymph % (Auto) 16.5 L, Mo no % (Auto) 14.2 H, Eos % (Auto) 2.0, Baso % (Auto) 0.3, Absolute Neuts (auto) 4.4, Absolute Lymphs (auto) 1.08, Nucleated RBC % 0 09/20/22 06:15: Sodium 130 L, Potassium 3.7, Chloride 97 L, Carbon Dioxide 26.0, Anion Gap 7, BUN 8, Creatinine 0.56 L, Estim Creat Clear Calc 78.68, Est GFR (MDRD) Af Amer 185, Est GFR (MDRD) Non-Af 153, BUN/Creatinine Ratio 14.2, Glucose 106, Calcium 8.5 Micro: Microbiology 09/18/22 23:00 Stool C. difficile DNA Amplification - Final 09/15/22 16:05 Urine Catheter - Catheter Urine Culture - Final Klebsiella pneumoniae sp pneum 09/15/22 15:15 Blood Culture (Wb) - Right Forearm Blood Culture - Preliminary No growth in 48 hours. 09/15/22 15:05 Blood Culture (Wb) - Left Forearm Blood Culture - Preliminary No growth in 48 hours. 09/15/22 15:05 Nasal Secretion SARS-CoV-2 Antigen (Rapid) - Final Physical Exam Narrative General: Alert, confused, Cooperative, No apparent distress HEENT: Atraumatic, PERRLA, EOMI, Normocephalic Oral: Moist Mucosa Neck: Supple, No JVD Lungs: Clear to auscultation, Normal air movement, No rhonchi, No wheeze, No rales Cardiovascular: Regular rate, Regular Rhythm, Normal S1, Normal S2, No murmurs Abdomen: Soft, Non Tender, Non-Distended, No Hepato-splenomegaly Extremities: No edema, Capillary Refill Less than 3 Seconds Skin: No rashes, No breakdown Musculoskeletal: No Tenderness to Palpation of Joints or Extremities Neurological: Cranial nerves II-XII grossly intact, Motor Exam 5/5 strength throughout, Sensory exam intact to light touch and pain Psych/Mental Status: Flat affect, Appropriate Const alert, oriented x3 and no apparent distress Constitutional Narrative: confused. Orientation / Consciousness: confused HEENT normocephalic, head/scalp atraumatic and moist oral mucous membranes Head and Scalp: normocephalic Mouth: oral and palatal mucosa normal Eyes PERRL, EOMs intact bilaterally and conjunctivae normal Eyes Narrative: No icterus Neck no lymphadenopathy and supple Neck Narrative: No thyromegaly Resp normal respiratory effort, no retractions, no use of accessory muscles and clear to auscultation bilaterally Cardio regular rate, regular rhythm, S1 normal heart sound, S2 normal heart sound and no murmurs GI normal to inspection, nondistended, normoactive bowel sounds, soft to palpation, non-tender, non-distended and hepatosplenomegaly Extremity normal to inspection, full ROM and no clubbing, cyanosis or edema Neuro oriented x3, CN's II-XII intact bilaterally, moves all extremities and no focal motor deficits Sensorium / Orientation: awake and alert Coordination / Balance: [id number] test normal Motor Exam: strength 5/5 throughout Psych affect normal Psych Narrative: confused Assessment & Plan Assessment/Plan (1) Metabolic encephalopathy: (2) Acute UTI: PLAN: Plan #Acute metabolic encephalopathy * due to UTI and dehydration; confusion is improving * on IV cipofloxacin. WIll dc antibiotics today after a 5 day course. * urine culture growing Klebsiella, sensitive to Ciprofloxacin * #UTI * completed course of antibiotics today-IV ciprofloxacin * #Debility due to UTI and dehydration * now a 3 person assist. * PT.OT on board. Fall precautions * may need placement to get his strength back before going back to prison * #Hypokalemia: K is 3.7 today. Will replace and trend. #Hyponatremia: * Na is up to 130 today. Will hydrate with IVF and trend. * continue to trend sodium * #Parkinson's disease: on Sinemet #Hypertension: on lisinopril #Hypothyroidism; on synthroid #Hyperlipidemia: on statin #DVT prophylaxis: lovenox Disposition: * will need placement. * His prison is unable to take him back due to debility.. Patient unable to make his own decisions. He does appear that he will need a guardian established for him. electrical line worker checking with intermediate to see whether they will take patient and start the guardianship process from the intermediate in conjunction with his PCP. * * Charges/Coding Visit Charges Inpatient E&M: 05980 Subs Hosp L2
--- NOTE | 2022-09-20 15:28 | CASEMGMT ---
Discharge Casing In Line Setter [facility] reached out. Patient has been accepted. Danielle from [facility] said patient needs to be sitter free for 24hrs. ONDINA Mo notified. Sameera LEE Ring Stamper
--- NOTE | 2022-09-20 16:09 | NURSING ---
sitter removed from room at 1600. bed exit on. items within reach.
--- NOTE | 2022-09-20 16:38 | CASEMGMT ---
Social Work Per ezequiel Roach salon shampoo assistant, pt has been accepted at [facility]. Pt will need to be sitter free for 24 hours prior to accepting admission. Charge nurse and physician updated. Plan: [facility] ROBYN Kirk
[2022-09-20] MEDS: LORazepam 1 MG Tablet PO (16:46)
[2022-09-20] MEDS: Timolol 0.5% 5ML OPTH.BTL 1 DRP EACH EYE (22:19)
[2022-09-20] MEDS: Pravastatin 40 MG Tablet PO (22:23)
[2022-09-20] MEDS: QUEtiapine 25 MG Tablet PO (22:23)
[2022-09-21] VITALS (7 sets, daily range): BP systolic 142–163; BP diastolic 82–87; PULSE 70–84; RESP 17–20; TEMP 36.4–36.8; O2SAT 97–99
[2022-09-21] MEDS: Carboxymethylcellulose sodium gel dropperette 1 EACH EACH EYE ×2 (05:36→14:17)
[2022-09-21] MEDS: Levothyroxine 150 MCG Tablet PO (05:36)
[2022-09-21 06:58] LABS: Absolute Lymphocyte Count 1.33 X10^3/uL (0.83-4.51); Absolute Neutrophil Count 5.4 X10^3/uL (2.0-7.7); Basophil# 0.02 X10^3/uL; Basophil% 0.3 % (0-1); Eosinophil# 0.15 X10^3/uL; Eosinophils% 1.9 % (0-5); Hematocrit 38.5 % (40-54); Hemoglobin 13.4 g/dL (13.0-16.5); Lymphocyte # 1.33 X10^3/ul (0.83-4.51); Lymphocyte % 16.6 % (19-41); Mean Corp Hgb Conc 34.8 g/dL (32-36); Mean Corpuscular Hgb 29.9 pg (27.0-32.0); Mean Corpuscular Volume 85.9 fL (80-94); Mean Platelet Vol. 8.7 fl (6.2-12.0); Monocyte# 0.96 X10^3/uL; NRBC Flagged by Analyzer 0 % (0-5); Neutrophil # 5.44 X10^3/uL (2.7-7.7); Neutrophil % 68.1 % (47-70); Platelet Count 222 K/mm3 (150-450); RBC Distribution Width CV 13.7 % (11.6-14.6); Red Blood Count 4.48 M/mm3 (4.6-6.2)
[2022-09-21 07:25] LABS: Anion Gap 6 (5-15); BUN 10 mg/dL (7-18); BUN/Creat Ratio 14.9 RATIO (10-20); Calcium,Total 8.6 mg/dL (8.5-10.1); Chloride 94 mmol/L (98-107); Creatinine, Serum 0.67 mg/dL (0.70-1.30); EST Glomerular Filtration Rate 126 mL/min (>60); Est Glom Filt Rate - Afr Amer 152 mL/min (>60); Estimated Creatinine Clearance 78.68 ml/min; Glucose 99 mg/dL (74-106); Potassium 3.7 mmol/L (3.5-5.1); Sodium Level 128 mmol/L (136-145)
[2022-09-21] MEDS: Carbidopa/Levodopa 25/100 Tablet PO ×3 (09:55→16:10)
[2022-09-21] MEDS: Ipratropium Bromide 0.06% NASAL SPRAY 1 SPRAY NASAL (09:55)
[2022-09-21] MEDS: Calcium Carbonate 500 MG Tablet PO (09:55)
[2022-09-21] MEDS: Citalopram 10 MG Tablet PO (09:56)
[2022-09-21] MEDS: Enoxaparin 40 MG/0.4 ML Syringe SC (09:57)
[2022-09-21] MEDS: Benztropine 2 MG Tablet PO (09:57)
[2022-09-21] MEDS: Lisinopril 20 MG Tablet PO (09:57)
[2022-09-21] MEDS: Pantoprazole Sodium 40 MG Tablet PO (09:58)
--- NOTE | 2022-09-21 12:39 | TREXTCAR_ITS ---
Diet Diet Order/Speech Therapy: 09/15/22 17:53 Diet: Regular - General Food consistency:: Easy to Chew Liquid Consistency:: Regular/Thin Is pt able to select menu?: No Diet Comments: 1:1 assist, cut food into small pieces, slow rate, small bites/sips Routine Orders/Code Status Enema Type: Fleetz Enema Frequency: Daily PRN Suppository Type: Dulcolax 10mg Suppository Frequency: Daily PRN O2 Frequency: PRN Keep PO Greater than or Equal to (%): 90 Wound(s) back of head, base of skull: Wound Type: from fall rt elbow: Wound Type: from fall Therapies Weight Bearing: Weight bearing as tolerated Physical Therapy: Eval and Treat Occupational Therapy: Eval and Treat Speech Therapy: Eval and Treat Problem/Diagnosis (1) Metabolic encephalopathy: Status: Acute Code(s): G93.41 - Metabolic encephalopathy (2) Acute UTI: Status: Acute Code(s): N39.0 - Urinary tract infection, site not specified Plan #Acute metabolic encephalopathy * due to UTI and dehydration; confusion is improving * on IV cipofloxacin. WIll dc antibiotics today after a 5 day course. * urine culture growing Klebsiella, sensitive to Ciprofloxacin * #UTI * completed course of antibiotics today-IV ciprofloxacin * #Debility due to UTI and dehydration * now a 3 person assist. * PT.OT on board. Fall precautions * may need placement to get his strength back before going back to care home * #Hypokalemia: K is 3.7 today. Will replace and trend. #Hyponatremia: * Na is up to 130 today. Will hydrate with IVF and trend. * continue to trend sodium * #Parkinson's disease: on Sinemet #Hypertension: on lisinopril #Hypothyroidism; on synthroid #Hyperlipidemia: on statin #DVT prophylaxis: lovenox Disposition: * will need placement. * His care home is unable to take him back due to debility.. Patient unable to make his own decisions. He does appear that he will need a guardian established for him. telephone lineworker checking with jail to see whether they will take patient and start the guardianship process from the jail in conjunction with his PCP. * * Allergies/Procedures Done in Hospital Allergies Penicillins [PCN] Allergy (Verified 09/15/22 14:31) Anaphylaxis Procedures: None Type of Care/Length of Stay Estimated LOS: Convalescent Care Less Than 30 days Type of Care Needed: Skilled Rehab Potential: Fair Prognosis: Fair Additional Orders/Day of Discharge Day of Discharge: 09/21/22 Dietary and Speech Recommendations Dietitian Recommendations/Changes: regular diet- texture/consistency modification per ORE DIGGER as indicated; okay to continue ensure plus high protein w/ medpass given risk for malnutrition w/ altered mental status. Discharge Plan Admission Admit Date/Time: 09/15/22 16:41 Primary Reason for Your Visit: UTI Attending Provider: Rosalind Dowd Primary Care Provider: Ayad Brown Chi Consulting Providers: Vinnie Avina ; Sidney Haskins Instructions Patient Instructions: ED Urinary Tract Infections in Men Discharge Orders/Prescriptions Prescriptions: Continued lisinopril 20 tablet 20 mg PO DAILY lorazepam 0.5 tablet 0.5 mg PO THSA trazodone 100 tablet 100 mg PO QHS levothyroxine 150 MCG tablet 150 mcg PO DAILY benztropine 2 tablet 2 mg PO BID lorazepam 1 tablet 1 mg PO BID pravastatin 40 mg Tablet 40 mg PO QHS pantoprazole 40 mg Tablet,Delayed Release (Dr/Ec) 40 mg PO DAILY calcium carbonate [Leandro-Gest Antacid] 200 mg calcium (500 mg) Tablet,Chewable 500 mg PO BID ipratropium bromide 42 mcg (0.06 %) [place],Non-Aerosol 1 spray INTRANASAL BID Rx Instructions: administer into each nostril budesonide-formoterol [Symbicort] 160-4.5 mcg/actuation Hfa Aerosol Inhaler 2 puff INHALATION BID terbinafine HCl 125 mg Granules In Packet 250 mg PO DAILY Refresh Digital 0.5-1-0.5 % Drops 1 drp EACH EYE TID doxycycline hyclate 50 mg capsule 50 mg PO DAILY citalopram 10 mg Tablet 10 mg PO DAILY albuterol sulfate 90 mcg/actuation Hfa Aerosol Inhaler 2 puff INHALATION Q6H PRN (Reason: Shortness Of Breath Or Wheezing) timolol maleate 0.5 % Gel Forming Solution 1 drp EACH EYE QHS carbidopa-levodopa [Sinemet] 25-100 mg Tablet 2 tab PO TID rivastigmine tartrate 3 mg Capsule 3 mg PO BID terbinafine 1 % Gel 1 ea TOPICAL BID Rx Instructions: apply to both feet. Minerin Creme Cream 1 applic TOPICAL DAILY docusate sodium 100 mg capsule 200 mg PO DAILY fluphenazine decanoate 25 mg/mL solution 25 mg IM .[id number] polyethylene glycol 3350 [Miralax] 17 gram/dose powder 17 g PO DAILY Qty: 510 3RF Referrals / Follow Up: Ayad Brown Chi, MD [Primary Care Provider] - Within 2 Weeks Disposition Disposition (needs filled in before D/C Order can be placed): Long Term Facility
--- NOTE | 2022-09-21 12:47 | DS.PCM_ITS ---
Providers Date of Admission: 09/15/22 Date of Discharge: 09/21/22 Primary Care Physician: Dr. Ayad Brown MD Reason For Visit: UTI, ENCEPHALOPATHY Diagnosis Discharge Diagnosis (1) Metabolic encephalopathy: Status: Acute Code(s): G93.41 - Metabolic encephalopathy (2) Acute UTI: Status: Acute Code(s): N39.0 - Urinary tract infection, site not specified Plan #Acute metabolic encephalopathy * due to UTI and dehydration; confusion is improving * on IV cipofloxacin. WIll dc antibiotics today after a 5 day course. * urine culture growing Klebsiella, sensitive to Ciprofloxacin * #UTI * completed course of antibiotics today-IV ciprofloxacin * #Debility due to UTI and dehydration * now a 3 person assist. * PT.OT on board. Fall precautions * may need placement to get his strength back before going back to senior care * #Hypokalemia: K is 3.7 today. Will replace and trend. #Hyponatremia: * Na is up to 130 today. Will hydrate with IVF and trend. * continue to trend sodium * #Parkinson's disease: on Sinemet #Hypertension: on lisinopril #Hypothyroidism; on synthroid #Hyperlipidemia: on statin #DVT prophylaxis: lovenox Disposition: * will need placement. * His senior care is unable to take him back due to debility.. Patient unable to make his own decisions. He does appear that he will need a guardian established for him. community support worker checking with penitentiary to see whether they will take patient and start the guardianship process from the penitentiary in conjunction with his PCP. * * Medications at Discharge Home Medications benztropine 2 mg tablet 2 mg PO BID extrapyramidal symptoms 11/23/19 levothyroxine 150 mcg tablet 150 mcg PO DAILY thyroid 11/23/19 lisinopril 20 mg tablet 20 mg PO DAILY blood pressure 11/23/19 lorazepam 0.5 mg tablet 0.5 mg PO THSA anxiety 11/23/19 lorazepam 1 mg tablet 1 mg PO BID anxiety 11/23/19 trazodone 100 mg tablet 100 mg PO QHS depression 11/23/19 polyethylene glycol 3350 17 gram/dose oral powder (Miralax) 17 g PO DAILY #510 grams 04/25/22 budesonide-formoterol HFA 160 mcg-4.5 mcg/actuation aerosol inhaler (Symbicort) 2 puff inhalation BID breathing 08/06/22 calcium carbonate 200 mg calcium (500 mg) chewable tablet (Leandro-Gest Antacid) 500 mg PO BID stomach 08/06/22 tcttmpaanznurgorfewvbb-frhdmpsc-ifpphlhw 80 0.5 %-1 %-0.5 % eye drops (Refresh Digital) 1 drp EACH EYE TID eye 08/06/22 ipratropium bromide 42 mcg (0.06 %) nasal spray 1 spray intranasal BID allergy 08/06/22 pantoprazole 40 mg tablet,delayed release 40 mg PO DAILY gerd 08/06/22 pravastatin 40 mg tablet 40 mg PO QHS cholesterol 08/06/22 terbinafine HCl 125 mg oral granules in packet 250 mg PO DAILY Check with prim benjy doctor 08/06/22 albuterol sulfate 90 mcg/actuation aerosol inhaler 2 puff inhalation Q6H PRN Sh ortness Of Breath Or Wheezing 09/15/22 carbidopa 25 mg-levodopa 100 mg tablet (Sinemet) 2 tab PO TID parkinsons 09/15/22 citalopram 10 mg tablet 10 mg PO DAILY depressioin 09/15/22 docusate sodium 100 mg capsule 200 mg PO DAILY stool softner 09/15/22 doxycycline hyclate 50 mg capsule 50 mg PO DAILY Check with primary doctor 09/15/22 lanolin alcohols-mineral oil-w.petrolatum-ceresin topical cream (Minerin Creme topical) 1 applic topical DAILY Check with primary doctor 09/15/22 rivastigmine tartrate 3 mg capsule 3 mg PO BID parkinsons 09/15/22 terbinafine 1 % topical gel 1 ea topical BID Check with primary doctor 09/15/22 timolol maleate 0.5 % eye gel forming solution 1 drp EACH EYE QHS Check with primary doctor 09/15/22 fluphenazine decanoate 25 mg/mL injection solution 25 mg IM .[id number] schizophrenia 09/18/22 tamsulosin 0.4 mg capsule (Flomax) 0.4 mg PO QHS #30 caps 09/21/22 Hospital Course Operations None Procedures None Summary of Care Provided Minutes Spent on Discharge: 45 Hospital Course: Patient is a 67-year-old male with past medical history as outlined was admitted from his senior care on 09/15/2022 with a complaint of altered mental status. He could not give much of a history otherwise. Labs done showed evidence of UTI he was started on IV fluids as well as IV ciprofloxacin. He was admitted and managed for acute metabolic encephalopathy due to UTI. Urine cultures grew E. coli sensitive to ciprofloxacin. He completed a 7-day antibiotic course. Hospital course was complicated by hyponatremia which was thought to be due to excessive fluid intake as patient was noted to be drinking a lot of fluids. He also had some urinary retention which was relieved by Franco catheter insertion. He was started on Flomax and catheter was discontinued with patient being straight cathed as and when needed. Patient remained confused and it did look like his baseline cognition was getting morning.. care home could not take him back as he was quite debilitated and was a 3 person assist. sn[facility] eventually agreed to take patient and start guardianship process from the penitentiary in conjunction with his primary care doctor. Patient was discharged to senior living facility on 09/21/2022. He is to follow-up with his primary care doctor within 1 to 2 weeks. Guardianship process to be initiated from penitentiary. Patient seen and examined prior to discharge. He was lying comfortably in bed and had no active complaints. Review of symptoms otherwise negative. Labs and vitals reviewed. Medication reviewed and reconciled. Physical Exam Const alert, oriented x3 and no apparent distress Constitutional Narrative: confused. General Appearance: cooperative and comfortable Orientation / Consciousness: confused and lethargic Exam Limitations: altered mental status HEENT normocephalic, head/scalp atraumatic, hearing grossly normal bilaterally and moist oral mucous membranes Mouth: oral and palatal mucosa normal Eyes PERRL, EOMs intact bilaterally and conjunctivae normal Eyes Narrative: No icterus Neck no lymphadenopathy and supple Neck Narrative: No thyromegaly Resp normal respiratory effort, no retractions, no use of accessory muscles and clear to auscultation bilaterally Cardio regular rate, regular rhythm, S1 normal heart sound, S2 normal heart sound and no murmurs GI normal to inspection, nondistended, normoactive bowel sounds, soft to palpation, non-tender, non-distended and hepatosplenomegaly Extremity normal to inspection, full ROM and no clubbing, cyanosis or edema Skin no rashes or lesions noted, no wounds and skin turgor normal Neuro oriented x3, CN's II-XII intact bilaterally, moves all extremities and no focal motor deficits Sensorium / Orientation: awake and alert Coordination / Balance: nclqei-ut-wtan test normal Motor Exam: strength 5/5 throughout Psych affect normal Psych Narrative: confused Weight / BMI Weight Weight: 217 lb 15.995 oz Body Mass Index (BMI) 28.8 ABG / Lab / Microbiology Data Result Diagrams: 09/21/22 06:45 09/21/22 06:45 Laboratory: Laboratory Results - last 24 hr 09/21/22 06:45: WBC 8.0, RBC 4.48 L, Hgb 13.4, Hct 38.5 L, MCV 85.9, MCH 29.9, MCHC 34.8, RDW Std Deviation 43.0, RDW Coeff of Evelin 13.7, Plt Count 222, MPV 8 .7, Immature Gran % (Auto) 1.100 H, Neut % (Auto) 68.1, Lymph % (Auto) 16.6 L, [place] % (Auto) 12.0 H, Eos % (Auto) 1.9, Baso % (Auto) 0.3, Absolute Neuts (auto) 5.4, Absolute Lymphs (auto) 1.33, Nucleated RBC % 0 09/21/22 06:45: Sodium 128 L, Potassium 3.7, Chloride 94 L, Carbon Dioxide 28.0, Anion Gap 6, BUN 10, Creatinine 0.67 L, Estim Creat Clear Calc 78.68, Est GFR (MDRD) Af Amer 152, Est GFR (MDRD) Non-Af 126, BUN/Creatinine Ratio 14.9, Glucose 99, Calcium 8.6 Microbiology: Microbiology 09/15/22 15:05 Blood Culture (Wb) - Left Forearm Blood Culture - Final No growth in 5 days. 09/15/22 15:15 Blood Culture (Wb) - Right Forearm Blood Culture - Final No growth in 5 days. 09/18/22 23:00 Stool C. difficile DNA Amplification - Final 09/15/22 16:05 Urine Catheter - Catheter Urine Culture - Final Klebsiella pneumoniae sp pneum 09/15/22 15:05 Nasal Secretion SARS-CoV-2 Antigen (Rapid) - Final D/C Instructions Discharge Diet: Low fat / Low cholesterol Discharge Activity: Return to Normal Activity Weight Bearing Status: Weight bearing as tolerated Call your doctor if you observe: Fever of 101 or Higher, Shortness of breath, Dizziness, Swelling in the ankles and Chest pain Meaningful Use Info Meaningful Use Diagnoses (Choose all that apply): None applicable Discharge Plan Admission Admit Date/Time: 09/15/22 16:41 Primary Reason for Your Visit: UTI Attending Provider: Rosalind Dowd Primary Care Provider: Ayad Brown Chi Consulting Providers: Vinnie Avina ; Sidney Haskins Instructions Patient Instructions: ED Urinary Tract Infections in Men Discharge Orders/Prescriptions Prescriptions: New tamsulosin [Flomax] 0.4 mg capsule 0.4 mg PO QHS Qty: 30 2RF Continued lisinopril 20 tablet 20 mg PO DAILY lorazepam 0.5 tablet 0.5 mg PO THSA trazodone 100 tablet 100 mg PO QHS levothyroxine 150 MCG tablet 150 mcg PO DAILY benztropine 2 tablet 2 mg PO BID lorazepam 1 tablet 1 mg PO BID pravastatin 40 mg Tablet 40 mg PO QHS pantoprazole 40 mg Tablet,Delayed Release (Dr/Ec) 40 mg PO DAILY calcium carbonate [Leandro-Gest Antacid] 200 mg calcium (500 mg) Tablet,Chewable 500 mg PO BID ipratropium bromide 42 mcg (0.06 %) [place],Non-Aerosol 1 spray INTRANASAL BID Rx Instructions: administer into each nostril budesonide-formoterol [Symbicort] 160-4.5 mcg/actuation Hfa Aerosol Inhaler 2 puff INHALATION BID terbinafine HCl 125 mg Granules In Packet 250 mg PO DAILY Refresh Digital 0.5-1-0.5 % Drops 1 drp EACH EYE TID doxycycline hyclate 50 mg capsule 50 mg PO DAILY citalopram 10 mg Tablet 10 mg PO DAILY albuterol sulfate 90 mcg/actuation Hfa Aerosol Inhaler 2 puff INHALATION Q6H PRN (Reason: Shortness Of Breath Or Wheezing) timolol maleate 0.5 % Gel Forming Solution 1 drp EACH EYE QHS carbidopa-levodopa [Sinemet] 25-100 mg Tablet 2 tab PO TID rivastigmine tartrate 3 mg Capsule 3 mg PO BID terbinafine 1 % Gel 1 ea TOPICAL BID Rx Instructions: apply to both feet. Minerin Creme Cream 1 applic TOPICAL DAILY docusate sodium 100 mg capsule 200 mg PO DAILY fluphenazine decanoate 25 mg/mL solution 25 mg IM .[id number] polyethylene glycol 3350 [Miralax] 17 gram/dose powder 17 g PO DAILY Qty: 510 3RF Referrals / Follow Up: Ayad Brown Chi, MD [Primary Care Provider] - Within 2 Weeks Disposition Disposition (needs filled in before D/C Order can be placed): Assisted Facility Charges/Coding Visit Charges Inpatient E&M: 40618 Disch Hosp
[2022-09-21] MEDS: Albuterol 2.5 MG/3 ML VIAL.NEB. INHALATION (13:44)
--- NOTE | 2022-09-21 13:45 | NURSING ---
This RN called Deniz Jones patients next of kin per his request to ask when she will be bringing his person belongings to [facility]. Will let patient know she will see him Saturday at [facility].
[2022-09-21] MEDS: Tamsulosin HCl 0.4 MG Capsule PO (14:17)
[2022-09-21] MEDS: Ensure Plus High Protein 120 ML LIQUID PO (14:17)
--- NOTE | 2022-09-21 14:43 | CASEMGMT ---
Social Work Per physician, Pt is ready for discharge today. [facility] is able to accept. 7000 exemption form completed in [facility] and sent along with covid results and discharge orders to [facility] via [facility]. Transportation arranged with [facility] for 4:30 pickup via cot. Phone call to Caitlin Jones CM at counseling center and left regarding discharge plan and confirmation from [facility] that they would work with [facility] to get guardianship process started. Danielle at [facility] notified via phone call of d/c time. Nursing notified. Plan: [facility], skilled level of care under convalescent care. ROBYN Kirk
--- NOTE | 2022-09-21 15:51 | NURSING ---
Report called to [facility] spoke with Arlin.
== END 2022-09-21 18:08 | disposition skilled nursing facility (03) | DRG 689 ==
LOC: ED 16:59 → MS3 17:09
PROVIDERS: Family Medicine; Emergency Provider Emergency Medicine; PCP Family Medicine Geriatric Medicine; Visit Provider Student in an Organized Health Care Education/Training Program
DX: N39.0 Urinary tract infection, site not specified (principal); G93.41 Metabolic encephalopathy; E87.1 Hypo-osmolality and hyponatremia; F29 Unspecified psychosis not due to a substance or known physiological condition; F20.9 Schizophrenia, unspecified; G20 Parkinson's disease; E78.5 Hyperlipidemia, unspecified; I10 Essential (primary) hypertension; F41.9 Anxiety disorder, unspecified; E87.6 Hypokalemia; E03.9 Hypothyroidism, unspecified; Z79.2 Long term (current) use of antibiotics; F79 Unspecified intellectual disabilities; Z87.891 Personal history of nicotine dependence; B96.1 Klebsiella pneumoniae [K. pneumoniae] as the cause of diseases classified elsewhere; B96.20 Unspecified Escherichia coli [E. coli] as the cause of diseases classified elsewhere; R53.81 Other malaise; F32.9 Major depressive disorder, single episode, unspecified; Z79.899 Other long term (current) drug therapy
CPT/HCPCS: 36415; 51702; 70450; 71045; 80048; 80053; 81001; 83605; 84484; 85025; 87040; 87077; 87086; 87088; 87186; 87493; 87811; 92526; 92610; 93005; 94640; 97110; 97162; 97166; 97530; 97535; 97802; 99285; J7030; A4216; J0744

== ENCOUNTER → 2022-10-23 | Outpatient (REF) | payer MEDICARE, MEDICAID, SELFPAY ==
[2022-10-23 08:59] LABS: Anion Gap 7 (5-15); BUN 21 mg/dL (7-18); Calcium,Total 8.8 mg/dL (8.5-10.1); Chloride 102 mmol/L (98-107); Creatinine, Serum 1.05 mg/dL (0.70-1.30); EST Glomerular Filtration Rate 75 mL/min (>60); Est Glom Filt Rate - Afr Amer 91 mL/min (>60); Glucose 91 mg/dL (74-106); Potassium 4.1 mmol/L (3.5-5.1); Sodium Level 138 mmol/L (136-145)
[2022-10-23 09:10] LABS: Absolute Lymphocyte Count 1.67 X10^3/uL (0.83-4.51); Absolute Neutrophil Count 4.4 X10^3/uL (2.0-7.7); Basophil# 0.02 X10^3/uL; Basophil% 0.3 % (0-1); Eosinophil# 0.18 X10^3/uL; Eosinophils% 2.6 % (0-5); Hematocrit 39.4 % (40-54); Lymphocyte # 1.67 X10^3/ul (0.83-4.51); Lymphocyte % 24.2 % (19-41); Mean Corpuscular Hgb 29.6 pg (27.0-32.0); Mean Corpuscular Volume 89.7 fL (80-94); Mean Platelet Vol. 9.5 fl (6.2-12.0); Monocyte# 0.59 X10^3/uL; Monocyte% 8.5 % (0-10); NRBC Flagged by Analyzer 0 % (0-5); Neutrophil # 4.41 X10^3/uL (2.7-7.7); Neutrophil % 63.8 % (47-70); Platelet Count 240 K/mm3 (150-450); RBC Distribution Width CV 14.4 % (11.6-14.6); RBC Distribution Width SD 46.4 fl (35.1-43.9); Red Blood Count 4.39 M/mm3 (4.6-6.2); White Blood Count 6.9 K/mm3 (4.4-11.0)
== END ==
LOC: OLS.SW 05:00
PROVIDERS: PCP Family Medicine Geriatric Medicine; Visit Provider Internal Medicine
DX: R68.89 Other general symptoms and signs (principal); Z13.228 Encounter for screening for other metabolic disorders
CPT/HCPCS: 36415; 80048; 85025

== ENCOUNTER → 2022-10-30 | Outpatient (REF) | payer MEDICARE, MEDICAID, SELFPAY ==
[2022-10-30 08:10] LABS: Absolute Lymphocyte Count 1.94 X10^3/uL (0.83-4.51); Absolute Neutrophil Count 4.7 X10^3/uL (2.0-7.7); Basophil# 0.04 X10^3/uL; Basophil% 0.5 % (0-1); Eosinophil# 0.17 X10^3/uL; Eosinophils% 2.3 % (0-5); Hemoglobin 12.3 g/dL (13.0-16.5); Lymphocyte # 1.94 X10^3/ul (0.83-4.51); Lymphocyte % 25.8 % (19-41); Mean Corp Hgb Conc 33.2 g/dL (32-36); Mean Corpuscular Volume 90.2 fL (80-94); Mean Platelet Vol. 9.6 fl (6.2-12.0); Monocyte# 0.63 X10^3/uL; Monocyte% 8.4 % (0-10); NRBC Flagged by Analyzer 0 % (0-5); Neutrophil # 4.71 X10^3/uL (2.7-7.7); Neutrophil % 62.7 % (47-70); Platelet Count 202 K/mm3 (150-450); RBC Distribution Width CV 14.6 % (11.6-14.6); RBC Distribution Width SD 49.1 fl (35.1-43.9); White Blood Count 7.5 K/mm3 (4.4-11.0)
[2022-10-30 08:17] LABS: BUN 21 mg/dL (7-18); Glucose 102 mg/dL (74-106)
[2022-10-30 08:18] LABS: Anion Gap 4 (5-15); BUN/Creat Ratio 21.1 RATIO (10-20); Calcium,Total 9.2 mg/dL (8.5-10.1); Chloride 105 mmol/L (98-107); EST Glomerular Filtration Rate 80 mL/min (>60); Est Glom Filt Rate - Afr Amer 96 mL/min (>60); Potassium 4.2 mmol/L (3.5-5.1); Sodium Level 140 mmol/L (136-145)
== END ==
LOC: OLS.SW 05:00
PROVIDERS: PCP Family Medicine Geriatric Medicine; Visit Provider Internal Medicine
DX: R68.89 Other general symptoms and signs (principal); Z13.228 Encounter for screening for other metabolic disorders
CPT/HCPCS: 36415; 80048; 85025

== ENCOUNTER → 2022-11-06 | Outpatient (REF) | payer MEDICARE, MEDICAID, SELFPAY ==
[2022-11-06 09:24] LABS: Absolute Lymphocyte Count 1.47 X10^3/uL (0.83-4.51); Absolute Neutrophil Count 4.7 X10^3/uL (2.0-7.7); Basophil# 0.03 X10^3/uL; Basophil% 0.4 % (0-1); Eosinophil# 0.19 X10^3/uL; Eosinophils% 2.7 % (0-5); Hematocrit 39.3 % (40-54); Hemoglobin 12.8 g/dL (13.0-16.5); Lymphocyte # 1.47 X10^3/ul (0.83-4.51); Lymphocyte % 21.1 % (19-41); Mean Corp Hgb Conc 32.6 g/dL (32-36); Mean Corpuscular Hgb 29.3 pg (27.0-32.0); Mean Corpuscular Volume 89.9 fL (80-94); Mean Platelet Vol. 9.8 fl (6.2-12.0); Monocyte% 8.6 % (0-10); NRBC Flagged by Analyzer 0 % (0-5); Neutrophil # 4.66 X10^3/uL (2.7-7.7); Neutrophil % 66.9 % (47-70); Platelet Count 208 K/mm3 (150-450); RBC Distribution Width CV 14.6 % (11.6-14.6); RBC Distribution Width SD 46.9 fl (35.1-43.9); Red Blood Count 4.37 M/mm3 (4.6-6.2)
[2022-11-06 09:39] LABS: Anion Gap 4 (5-15); BUN 19 mg/dL (7-18); BUN/Creat Ratio 18.6 RATIO (10-20); Calcium,Total 9.2 mg/dL (8.5-10.1); Chloride 105 mmol/L (98-107); Creatinine, Serum 1.02 mg/dL (0.70-1.30); EST Glomerular Filtration Rate 77 mL/min (>60); Est Glom Filt Rate - Afr Amer 94 mL/min (>60); Glucose 119 mg/dL (74-106); Sodium Level 137 mmol/L (136-145)
== END ==
LOC: OLS.SW 05:00
PROVIDERS: PCP Family Medicine Geriatric Medicine; Visit Provider Internal Medicine
DX: I10 Essential (primary) hypertension (principal); F03.90 Unspecified dementia, unspecified severity, without behavioral disturbance, psychotic disturbance, mood disturbance, and anxiety; E03.9 Hypothyroidism, unspecified; Z79.899 Other long term (current) drug therapy
CPT/HCPCS: 36415; 80048; 85025

== ENCOUNTER → 2022-11-13 | Outpatient (REF) | payer MEDICARE, MEDICAID, SELFPAY ==
[2022-11-13 09:41] LABS: Absolute Lymphocyte Count 1.61 X10^3/uL (0.83-4.51); Absolute Neutrophil Count 4.2 X10^3/uL (2.0-7.7); Basophil# 0.04 X10^3/uL; Basophil% 0.6 % (0-1); Eosinophil# 0.24 X10^3/uL; Eosinophils% 3.6 % (0-5); Hematocrit 37.8 % (40-54); Hemoglobin 12.1 g/dL (13.0-16.5); Lymphocyte # 1.61 X10^3/ul (0.83-4.51); Lymphocyte % 24.2 % (19-41); Mean Corpuscular Hgb 28.9 pg (27.0-32.0); Mean Corpuscular Volume 90.4 fL (80-94); Mean Platelet Vol. 9.6 fl (6.2-12.0); Monocyte# 0.55 X10^3/uL; Monocyte% 8.3 % (0-10); NRBC Flagged by Analyzer 0 % (0-5); Neutrophil # 4.17 X10^3/uL (2.7-7.7); Neutrophil % 62.8 % (47-70); Platelet Count 192 K/mm3 (150-450); RBC Distribution Width CV 14.8 % (11.6-14.6); RBC Distribution Width SD 48.8 fl (35.1-43.9); Red Blood Count 4.18 M/mm3 (4.6-6.2); White Blood Count 6.6 K/mm3 (4.4-11.0)
[2022-11-13 09:56] LABS: Anion Gap 4 (5-15); BUN 19 mg/dL (7-18); BUN/Creat Ratio 20.1 RATIO (10-20); Calcium,Total 9.1 mg/dL (8.5-10.1); Chloride 106 mmol/L (98-107); Creatinine, Serum 0.95 mg/dL (0.70-1.30); EST Glomerular Filtration Rate 84 mL/min (>60); Est Glom Filt Rate - Afr Amer 102 mL/min (>60); Glucose 100 mg/dL (74-106); Potassium 4.4 mmol/L (3.5-5.1); Sodium Level 139 mmol/L (136-145)
== END ==
LOC: OLS.SW 05:00
PROVIDERS: PCP Family Medicine Geriatric Medicine; Visit Provider Internal Medicine
DX: I10 Essential (primary) hypertension (principal)
CPT/HCPCS: 36415; 80048; 85025

== ENCOUNTER → 2023-01-14 | Outpatient (REF) | payer MEDICARE, MEDICAID, SELFPAY ==
[2023-01-14 08:17] LABS: Bacteria 0 SEEN /hpf (None Seen); Mucous, Urine 0 SEEN /hpf (<or=2+); Red Blood Cells-Urine 0 SEEN /hpf (0-5); Squamous Epithelial Cells - UA 0 SEEN /hpf (0-5)
[2023-01-14 08:48] LABS: Color, Urine Yellow (Yellow); Glucose, Dipstick Normal (Normal); Ketone-Dipstick 5 mg/dl (Negative); Leukocyte Esterase-Dipstick 500 /ul (Negative); Nitrite-Dipstick Negative (Negative); Occult Blood-Urine 50 /ul (Negative); Protein-Dipstick 100 mg/dl (Negative); Specific Gravity, Urine 1.015 (1.002-1.030); Urine Bilirubin Dipstick Negative (Negative); Urine Clarity Turbid (Clear); Urine Urobilinogen Normal (Normal)
[2023-01-14 08:53] LABS: Absolute Lymphocyte Count 2.06 X10^3/uL (0.83-4.51); Absolute Neutrophil Count 5.4 X10^3/uL (2.0-7.7); Basophil# 0.03 X10^3/uL; Basophil% 0.4 % (0-1); Eosinophil# 0.26 X10^3/uL; Eosinophils% 3.1 % (0-5); Hematocrit 42.6 % (40-54); Hemoglobin 13.5 g/dL (13.0-16.5); Lymphocyte # 2.06 X10^3/ul (0.83-4.51); Lymphocyte % 24.5 % (19-41); Mean Corp Hgb Conc 31.7 g/dL (32-36); Mean Corpuscular Hgb 29.3 pg (27.0-32.0); Mean Corpuscular Volume 92.4 fL (80-94); Mean Platelet Vol. 9.1 fl (6.2-12.0); Monocyte# 0.68 X10^3/uL; Monocyte% 8.1 % (0-10); NRBC Flagged by Analyzer 0 % (0-5); Neutrophil # 5.36 X10^3/uL (2.7-7.7); Neutrophil % 63.5 % (47-70); Platelet Count 204 K/mm3 (150-450); RBC Distribution Width CV 14.1 % (11.6-14.6); RBC Distribution Width SD 47.6 fl (35.1-43.9); Red Blood Count 4.61 M/mm3 (4.6-6.2); White Blood Count 8.4 K/mm3 (4.4-11.0)
[2023-01-14 09:05] LABS: White Blood Cells >100 SEEN /hpf (0-5)
== END ==
LOC: OLS.SW 04:00
PROVIDERS: PCP Family Medicine Geriatric Medicine; Referring Provider Internal Medicine; Visit Provider Internal Medicine
DX: F03.90 Unspecified dementia, unspecified severity, without behavioral disturbance, psychotic disturbance, mood disturbance, and anxiety (principal); R30.0 Dysuria
CPT/HCPCS: 36415; 81001; 85025

== ENCOUNTER → 2023-01-14 | Outpatient (REF) | payer MEDICARE, MEDICAID, SELFPAY | LOC: OLS.SW 12:00 | PROVIDERS: PCP Family Medicine Geriatric Medicine; Visit Provider Internal Medicine | DX: N39.0 Urinary tract infection, site not specified (principal) | CPT/HCPCS: 87077; 87086; 87088; 87186 ==

== ENCOUNTER → 2023-02-09 | Outpatient (REF) | payer MEDICARE, MEDICAID, SELFPAY ==
[2023-02-09 22:00] LABS: Mucous, Urine 0 SEEN /hpf (<or=2+); Squamous Epithelial Cells - UA 0 SEEN /hpf (0-5)
[2023-02-09 22:34] LABS: Color, Urine Yellow (Yellow); Glucose, Dipstick Normal (Normal); Ketone-Dipstick 5 mg/dl (Negative); Leukocyte Esterase-Dipstick 500 /ul (Negative); Nitrite-Dipstick Negative (Negative); Occult Blood-Urine 150 /ul (Negative); Protein-Dipstick 100 mg/dl (Negative); Specific Gravity, Urine 1.015 (1.002-1.030); Urine Bilirubin Dipstick Negative (Negative); Urine Clarity Turbid (Clear); Urine Urobilinogen Normal (Normal); Urine pH 6.5 (5.0 - 8.0)
[2023-02-09 23:05] LABS: White Blood Cells >100 SEEN /hpf (0-5)
[2023-02-09 23:07] LABS: Red Blood Cells-Urine 10-25 SEEN /hpf (0-5)
[2023-02-09 23:08] LABS: Bacteria 4+ /hpf (None Seen)
== END ==
LOC: OLS.SW 21:59
PROVIDERS: PCP Family Medicine Geriatric Medicine; Visit Provider Internal Medicine
DX: N39.0 Urinary tract infection, site not specified (principal)
CPT/HCPCS: 81001; 87077; 87086; 87088; 87186

== ENCOUNTER → 2023-02-11 | Outpatient (REF) | payer MEDICARE, MEDICAID, SELFPAY ==
[2023-02-11 08:23] LABS: Anion Gap 7 (5-15); BUN 14 mg/dL (7-18); BUN/Creat Ratio 16.3 RATIO (10-20); Calcium,Total 8.9 mg/dL (8.5-10.1); Chloride 105 mmol/L (98-107); Creatinine, Serum 0.86 mg/dL (0.70-1.30); EST Glomerular Filtration Rate 95 mL/min (>60); Est Glom Filt Rate - Afr Amer 114 mL/min (>60); Glucose 90 mg/dL (74-106); Potassium 4.3 mmol/L (3.5-5.1); Sodium Level 142 mmol/L (136-145)
== END ==
LOC: OLS.SW 05:00
PROVIDERS: PCP Family Medicine Geriatric Medicine; Visit Provider Internal Medicine
DX: E87.1 Hypo-osmolality and hyponatremia (principal)
CPT/HCPCS: 36415; 80048

== ENCOUNTER → 2023-04-03 | Outpatient (REF) | payer MEDICARE, MEDICAID, SELFPAY ==
[2023-04-03 08:23] LABS: Thyroid Stim Hormone (TSH) 1.65 uIU/mL (0.358-3.74)
== END ==
LOC: OLS.SW 05:00
PROVIDERS: PCP Family Medicine Geriatric Medicine; Visit Provider Internal Medicine
DX: E03.9 Hypothyroidism, unspecified (principal)
CPT/HCPCS: 36415; 84443

== ENCOUNTER → 2023-04-11 | Outpatient (REF) | payer MEDICARE, MEDICAID, SELFPAY ==
[2023-04-11 08:18] LABS: Hematocrit 42.5 % (40-54); Hemoglobin 13.6 g/dL (13.0-16.5); Mean Corpuscular Hgb 28.3 pg (27.0-32.0); Mean Corpuscular Volume 88.5 fL (80-94); Mean Platelet Vol. 9.4 fl (6.2-12.0); Platelet Count 203 K/mm3 (150-450); RBC Distribution Width CV 13.8 % (11.6-14.6); RBC Distribution Width SD 44.9 fl (35.1-43.9); White Blood Count 6.7 K/mm3 (4.4-11.0)
[2023-04-11 08:52] LABS: ALB/GLOB Ratio 1.1 RATIO (0.9-2.4); AST(SGOT) 24 U/L (15-37); Alanine Aminotransfer ALT/SGPT 23 U/L (16-61); Albumin, Serum 3.5 g/dL (3.2-5.0); Alkaline Phosphatase 77 U/L (45-117); Anion Gap 8 (5-15); BUN 18 mg/dL (7-18); BUN/Creat Ratio 20.1 RATIO (10-20); Calcium,Total 8.7 mg/dL (8.5-10.1); Chloride 101 mmol/L (98-107); EST Glomerular Filtration Rate 90 mL/min (>60); Est Glom Filt Rate - Afr Amer 109 mL/min (>60); Globulin 3.2 g/dL (2.2-4.2); Glucose 90 mg/dL (74-106); Protein, Total 6.7 g/dL (6.4-8.2); Sodium Level 137 mmol/L (136-145); T4 Free Direct 0.86 ng/dL (0.76-1.46); Thyroid Stim Hormone (TSH) 0.59 uIU/mL (0.358-3.74)
[2023-04-11 08:56] LABS: Vitamin B12 514 pg/mL (211-911); Vitamin D,25 Hydroxy 33.3 ng/mL
[2023-04-16 03:07] LABS: Vitamin B1, Thiamine 105.7 nmol/L (66.5-200.0)
== END ==
LOC: OLS.SW 05:00
PROVIDERS: PCP Family Medicine Geriatric Medicine; Visit Provider Psychiatry & Neurology Neurology
DX: F03.90 Unspecified dementia, unspecified severity, without behavioral disturbance, psychotic disturbance, mood disturbance, and anxiety (principal); E03.9 Hypothyroidism, unspecified; E55.9 Vitamin D deficiency, unspecified; G25.9 Extrapyramidal and movement disorder, unspecified
CPT/HCPCS: 36415; 80053; 82306; 82607; 82746; 84425; 84439; 84443; 85027

== ENCOUNTER → 2023-05-02 | Outpatient (CLI) | payer MEDICARE, MEDICAID, SELFPAY ==
--- NOTE | 2023-05-02 10:00 | MRI_ITS ---
STUDY: MRI BRAIN WITH AND WITHOUT CONTRAST REASON FOR EXAM: Male, 67 years old. Dementia; schizophrenia; extrapyramidal dysfunction TECHNIQUE: Multiplanar multisequence imaging of the brain was performed without and following the administration of intravenous contrast. COMPARISON: Noncontrast head CT 09/18/2022 FINDINGS: The ventricles, cisterns, and sulci are within normal limits for patients age. There is no restricted diffusion to suggest acute ischemia or infarction. No succeptibility artifict to suggest intracranial hemorrhage or mineralization. Major intracranial signal voids are preserved. There is no midline shift, mass effect, or extra axial fluid collections are seen. No CP angle or IAC mass is seen. The orbits are unremarkable. Normal variant, empty sella. The visualized paranasal sinuses are clear. The mastoid air cells are clear. Briskly enhancing 11 mm round extra-axial lesion at the high left parasagittal convexity anteriorly. MRI/Brain W/WO Contrast IMPRESSION: No acute intracranial findings. 11 mm extra-axial lesion consistent with incidental meningioma. Electronically Signed: Moody Maza MD at 23:04 EDT ,
== END | disposition home or self-care (01) ==
LOC: MRI 09:57
PROVIDERS: PCP Family Medicine Geriatric Medicine; Referring Provider Psychiatry & Neurology Neurology; Visit Provider Psychiatry & Neurology Neurology
DX: G25.9 Extrapyramidal and movement disorder, unspecified (principal); F20.9 Schizophrenia, unspecified; F03.90 Unspecified dementia, unspecified severity, without behavioral disturbance, psychotic disturbance, mood disturbance, and anxiety
CPT/HCPCS: 70553; A9575

== ENCOUNTER → 2023-06-10 | Outpatient (REF) | payer MEDICARE, MEDICAID, SELFPAY ==
[2023-06-10 08:22] LABS: Absolute Lymphocyte Count 2.45 X10^3/uL (0.83-4.51); Absolute Neutrophil Count 3.8 X10^3/uL (2.0-7.7); Basophil# 0.04 X10^3/uL; Basophil% 0.6 % (0-1); Eosinophil# 0.26 X10^3/uL; Eosinophils% 3.6 % (0-5); Hematocrit 40.7 % (40-54); Hemoglobin 13.6 g/dL (13.0-16.5); Lymphocyte # 2.45 X10^3/ul (0.83-4.51); Lymphocyte % 33.8 % (19-41); Mean Corp Hgb Conc 33.4 g/dL (32-36); Mean Corpuscular Hgb 29.8 pg (27.0-32.0); Mean Corpuscular Volume 89.3 fL (80-94); Mean Platelet Vol. 9.4 fl (6.2-12.0); Monocyte# 0.64 X10^3/uL; Monocyte% 8.8 % (0-10); NRBC Flagged by Analyzer 0 % (0-5); Neutrophil % 52.4 % (47-70); Platelet Count 193 K/mm3 (150-450); RBC Distribution Width CV 14.5 % (11.6-14.6); RBC Distribution Width SD 46.7 fl (35.1-43.9); Red Blood Count 4.56 M/mm3 (4.6-6.2); White Blood Count 7.3 K/mm3 (4.4-11.0)
[2023-06-10 08:49] LABS: ALB/GLOB Ratio 1.1 RATIO (0.9-2.4); AST(SGOT) 29 U/L (15-37); Alanine Aminotransfer ALT/SGPT 28 U/L (16-61); Albumin, Serum 3.5 g/dL (3.2-5.0); Alkaline Phosphatase 76 U/L (45-117); Anion Gap 4 (5-15); BUN 14 mg/dL (7-18); BUN/Creat Ratio 16.3 RATIO (10-20); Calcium,Total 8.5 mg/dL (8.5-10.1); Chloride 102 mmol/L (98-107); Cholesterol 187 mg/dL (200); Creatinine, Serum 0.86 mg/dL (0.70-1.30); EST Glomerular Filtration Rate 94 mL/min (>60); Est Glom Filt Rate - Afr Amer 114 mL/min (>60); Globulin 3.3 g/dL (2.2-4.2); Glucose 89 mg/dL (74-106); High Density Lipoprotein 45 mg/dL; Potassium 4.1 mmol/L (3.5-5.1); Protein, Total 6.8 g/dL (6.4-8.2); Sodium Level 138 mmol/L (136-145); Triglycerides 213 mg/dL; Very Low Density Lipoprotein 43 mg/dL (5-40)
[2023-06-10 09:12] LABS: Hemoglobin A1c 5.3 % (3.8-5.6)
== END ==
LOC: OLS.SW 05:00
PROVIDERS: PCP Family Medicine Geriatric Medicine; Visit Provider Internal Medicine
DX: E78.5 Hyperlipidemia, unspecified (principal); E03.9 Hypothyroidism, unspecified; G93.41 Metabolic encephalopathy
CPT/HCPCS: 36415; 80053; 80061; 83036; 84443; 85025

== ENCOUNTER → 2023-07-01 | Outpatient (REF) | payer MEDICARE, MEDICAID, SELFPAY ==
[2023-07-01 09:02] LABS: Absolute Lymphocyte Count 1.75 X10^3/uL (0.83-4.51); Absolute Neutrophil Count 3.2 X10^3/uL (2.0-7.7); Basophil# 0.02 X10^3/uL; Basophil% 0.3 % (0-1); Eosinophil# 0.22 X10^3/uL; Eosinophils% 3.8 % (0-5); Hematocrit 40.8 % (40-54); Hemoglobin 13.3 g/dL (13.0-16.5); Lymphocyte # 1.75 X10^3/ul (0.83-4.51); Lymphocyte % 30.2 % (19-41); Mean Corp Hgb Conc 32.6 g/dL (32-36); Mean Corpuscular Hgb 29.6 pg (27.0-32.0); Mean Corpuscular Volume 90.9 fL (80-94); Mean Platelet Vol. 9.2 fl (6.2-12.0); Monocyte# 0.57 X10^3/uL; Monocyte% 9.8 % (0-10); NRBC Flagged by Analyzer 0 % (0-5); Neutrophil % 55.4 % (47-70); Platelet Count 181 K/mm3 (150-450); RBC Distribution Width CV 14.1 % (11.6-14.6); RBC Distribution Width SD 46.5 fl (35.1-43.9); Red Blood Count 4.49 M/mm3 (4.6-6.2); White Blood Count 5.8 K/mm3 (4.4-11.0)
== END ==
LOC: OLS.SW 05:00
PROVIDERS: PCP Family Medicine Geriatric Medicine; Visit Provider Internal Medicine
DX: F03.90 Unspecified dementia, unspecified severity, without behavioral disturbance, psychotic disturbance, mood disturbance, and anxiety (principal); N40.0 Benign prostatic hyperplasia without lower urinary tract symptoms
CPT/HCPCS: 36415; 85025

== ENCOUNTER → 2023-10-14 | Outpatient (REF) | payer MEDICARE, MEDICAID, SELFPAY ==
[2023-10-14 08:47] LABS: Hemoglobin 13.9 g/dL (13.0-16.5); Mean Corp Hgb Conc 32.3 g/dL (32-36); Mean Corpuscular Volume 89.6 fL (80-94); Mean Platelet Vol. 9.6 fl (6.2-12.0); Platelet Count 204 K/mm3 (150-450); RBC Distribution Width SD 45.6 fl (35.1-43.9); White Blood Count 6.7 K/mm3 (4.4-11.0)
[2023-10-14 09:06] LABS: ALB/GLOB Ratio 1.1 RATIO (0.9-2.4); AST(SGOT) 33 U/L (15-37); Alanine Aminotransfer ALT/SGPT 16 U/L (16-61); Albumin, Serum 3.5 g/dL (3.2-5.0); Alkaline Phosphatase 77 U/L (45-117); Anion Gap 5 (5-15); BUN 13 mg/dL (7-18); BUN/Creat Ratio 13.5 RATIO (10-20); Calcium,Total 8.6 mg/dL (8.5-10.1); Chloride 102 mmol/L (98-107); Creatinine, Serum 0.96 mg/dL (0.70-1.30); EST Glomerular Filtration Rate 83 mL/min (>60); Est Glom Filt Rate - Afr Amer 100 mL/min (>60); Globulin 3.1 g/dL (2.2-4.2); Glucose 90 mg/dL (74-106); Potassium 4.2 mmol/L (3.5-5.1); Protein, Total 6.6 g/dL (6.4-8.2); Sodium Level 138 mmol/L (136-145); Thyroid Stim Hormone (TSH) 1.18 uIU/mL (0.358-3.74)
== END ==
LOC: OLS.SW 06:50
PROVIDERS: PCP Family Medicine Geriatric Medicine; Visit Provider Internal Medicine
DX: E03.9 Hypothyroidism, unspecified (principal)
CPT/HCPCS: 36415; 80053; 84443; 85027

== ENCOUNTER → 2023-10-23 | Outpatient (REF) | payer MEDICARE, MEDICAID, SELFPAY ==
[2023-10-23 08:26] LABS: PSA,Total - Annual Screen 1.14 ng/mL (0.00-4.00)
== END ==
LOC: OLS.SW 06:25
PROVIDERS: PCP Family Medicine Geriatric Medicine; Visit Provider Internal Medicine
DX: N13.9 Obstructive and reflux uropathy, unspecified (principal); Z12.5 Encounter for screening for malignant neoplasm of prostate
CPT/HCPCS: 36415; 84153; G0103

== ENCOUNTER → 2024-01-17 | Outpatient (REF) | payer MEDICARE, MEDICAID, SELFPAY ==
--- OUTSIDE RECORDS SUMMARY | 2024-01-17 04:57 | XMS RPT_ITS | CCD ---
Author Name Unknown Address [address] [place] [address] Organization [facility] Care Team Providers Care Warehouse Sorter Name Role Phone Jossue Bell MD Primary Care Provider JOSSUE BELL Primary Care Unavailable JOHNATHAN BAIRD Attending Unavailable Allergies Allergy Classification Reported Allergen(s) Allergy Type Date of Onset Reaction(s) Facility (4 sources) Penicillins; Translations: [PENICILLINS] Drug Allergy 04-16-2013 Unknown [facility] Medications Completed/Discontinued Medications Medication Drug Class(es) Dates Sig (Normalized) Sig (Original) [id number] 200 actuat albuterol 0.09 mg/actuat metered dose inhaler (3 sources) beta2-Adrenergic Agonist Start: 09-30-2019 VENTOLIN HFA 90 mcg/actuation inhaler amLODIPine (3 sources) Dihydropyridine Calcium [employer] [place] AMLODIPINE BESYLATE (AMLODIPINE ORAL) Take by mouth. 0 Active Problems Problem Classification Problem Date Documented Da te Episodic/Chronic Hyperplasia of prostate (1 source) Benign prostatic hyperplasia; Translations: [Benign prostatic hyperplasia without lower urinary tract symptoms] Chronic Urinary tract infections (1 source) Acute cystitis; Translations: [Acute cystitis without hematuria] Episodic Results Test Name Value Interpretation Reference Range Facil ity Vital Signs Date Time Vital Sign Value Performing Clinician Faci lity 03-26-2023 15:110400 Body height 182.9 cm Johnathan RÍOSFigCard Work Phone: [facility] 03-26-2023 15:11040 Body temperature 98.29 [degF] Johnathan RÍOSFigCard Work Phone: [facility] 03-26-2023 15:11040 Body weight 112.04 kg Johnathan RÍOSFigCard Work Phone: [facility] 03-26-2023 15:11-0400 Diastolic blood pressure 82 mm[Hg] Johnathan Hancockoney PA-C Work Phone: [facility] 03-26-2023 15:11-0400 Heart rate 76 /min Johnathan Hancockoney PA-C Work Phone: [facility] 03-26-2023 15:11-0400 Respiratory rate 14 /min Johnathan Hancockoney PA-C Work Phone: [facility] 03-26-2023 15:11-0400 SaO2% (BldA) [Mass fraction] 96 % Johnathan Hancockoney PA-C Work Phone: [facility] 03-26-2023 15:11-0400 Systolic blood pressure 140 mm[Hg] Johnathan Hancockoney PA-C Work Phone: [facility] Encounters Encounter Date Encounter Type Care Provider Facility Start: 03-27-2023 Telephone encounter Johnathan Hancock gaston PA-C Work Phone: Urology Procedures Date Procedure Procedure Detail Performing Clinician Start: 03-26-2023 Urnls dip stick/tabl et rgnt auto w/o microscopy Johnathannavin Baird PA-C Work Phone: Plan of Treatment Date Care Activity Detail Author Start: 08-02-2023 Influenza vaccination INFLUENZA (Sea son Ended) [facility] Start: 12-02-2022 ADVANCE DIRECTIVE DISCUSSION ADVANCE DIRECTIVE DISCUSSION [facility] Start: 12-02-2022 DEPRESSION ASSESSMENT DEPRESSION ASS ESSMENT [facility] Start: 05-15-2022 COVID-19 VACCINE (5 - Booster for Moderna series) COVID-19 VACCINE (5 - Booster for Moderna series) [facility] Start: 2020 PNEUMOCOCCAL: 65+ (1 - PCV) PNEUMOCOCCAL: 65+ (1 - PCV) [facility] Start: 2010 PROSTATE CANCER SCRE ENING DISCUSSION PROSTATE CANCER SCREENING DISCUSSION [facility] Start: 2005 SHINGRIX VACCINE (1 of 2) SHINGRIX V ACCINE (1 of 2) [facility] Start: 2000 COLOGUARD (FIT-DNA) COLOGUARD (FIT-D NA) [facility] Start: 2000 Colonoscopy COLONOSCOPY [facility] Start: 2000 COLORECTAL CANCER SCREENING COLORECTAL CANCER SCREENING [facility] Start: [address] COLONOGRAPHY [facility] Start: 2000 DIABETES SCREEN DIABETES SCREEN [facility] Start: 2000 FECAL OCCULT BLOOD FECAL OCCULT BLOO D [facility] Start: 2000 SIGMOIDOSCOPY SIGMOIDOSCOPY [facility] Start: 1990 LIPID SCREEN LIPID SCREEN [facility] Start: 1974 Urine microalbumin profile DTAP,TDAP ,TD (1 - Tdap) [facility] Start: 1973 HEPATITIS C SCREENING HEPATITIS C SC REENING [facility] Start: 02-27-1956 COVID-19 VACCINE (#1) COVID-19 VACCI NE (#1) [facility] Start: 1955 ABDOMINAL AORTIC ANE URYSM SCREENING ABDOMINAL AORTIC ANEURYSM SCREENING [facility] Payers Date Payer Category Payer Medicaid [place] [id number] 2013-Present [phone] [address] [place] [address] Medicaid [id number] 2013 Medicaid [id number] 2010 Medicare MEDICARE MEDICAR E A AND B [id number] 2010-Present [phone] [address] [address] [place] [address] Medicare [id number] 2010 Medicare [id number] Social History Date Type Detail Facility Start: 08-31-2018 End: 03-26-2023 Tobacco smoking status NHIS Ex-smoker [facility] End: 06-30-2018 History of tobacco use Current smoker [facility] End: 06-30-2018 History of tobacco use Cigarette Smoker [facility] Start: 08-31-2018 Tobacco use and exposure Smoke less tobacco non-user [facility] Start: 03-25-2023 Alcohol intake Not Asked [facility] Start: 1955 Sex Assigned At Not on file C [facility] Start: 03-26-2023 Tobacco use and exposure Forme r smokeless tobacco user [facility] of tobacco use [facility] Start: 03-26-2023 Alcohol intake Ex-drinker (finding) [facility] Note 03-27-2023 Telephone Encounter - Vivienne Gonzáles LPN - 03/27/2023 3:29 PM EDTTelephone Encounter - Vivienne Gonzáles LPN - 03/27/2023 3:27 PM EDT Note Date & Type Note Facility 03-27-2023 Miscellaneous Notes Formattin g of this note might be different from the original. Faxed. Vivienne Gonzáles LPN Called [facility] for fax number. Per Johnathan he would like Office notes faxed. Fax number [phone]. Vivienne Gonzáles LPN documented in this encounter [facility] Progress note 03-26-2023 Note Date & Type Note Facility 03-26-2023 Note HNO ID: [id number] Author: Johnathan Baird PA-C Service: ? Author Type: Physician Director Workforce Management Type: Progress Notes Filed: 03/26/2023 7:31 PM Note Text: [facility] NEW PATIENT CLINIC NOTE SERVICE DATE: 03/26/2023 SERVICE TIME: 4:19 PM NAME: Ernst Miles CHIEF COMPLAINT: BPH with LUTS HISTORY OF PRESENT ILLNESS: Ernst Miles is a 67 year old male presenting with BPH with LUTS history and he has been on Flomax and Proscar with good success since his UTI recently The patient reports he wanted to make sure he is on a good program to avoid UTI's and considering his UA today looks great And he feels good on the medications, I agree with the current therapy and if he has UTi like symptoms in the future we will have him get urine cultures And treat accordingly LUTS: Much improved since UTI treated and on Flomax and Proscar daily Other symptoms: LABS: No results found for: TESTOST No results found for: TESTFREE No results found for: PSA No results found for: HCT No results found for: PSA No results found for: CREAT . MEDICATIONS: OXYGEN, HOME THERAPY, Inhale 2 L/min as instructed as directed. 2-5 L/M finasteride (PROSCAR) 5 mg tablet Take 5 mg by mouth daily at bedtime. pantoprazole DR (PROTONIX) 40 mg tablet Take 40 mg by mouth once daily. rivastigmine tartrate (EXELON) 4.5 mg capsule Take 4.5 mg by mouth twice daily. tamsulosin (FLOMAX) 0.4 mg Take 0.8 mg by mouth daily at bedtime. fluPHENAZine decanoate (PROLIXIN DECANOATE) 25 mg/mL injection Inject 25 mg intramuscularly every 2 weeks. pravastatin (PRAVACHOL) 40 mg tablet Take 40 mg by mouth daily at bedtime. polyethylene glycol 3350 17 gram packet Take 17 g by mouth once daily. Dissolve dose in 4 - 8 ounces of liquid and take as directed. [id number]-PF (REFRESH DIGITAL PF) 0.5-1-0.5 % dpet Use in eyes three times daily. One drop in both eyes three times daily ANTACID, CALCIUM CARBONATE, ORAL Take 500 mg by mouth twice daily. carbidopa-levodopa (SINEMET 25-100) 25-100 mg per tablet Take 2 tablets by mouth three times daily. citalopram hydrobromide (CELEXA) 10 mg tablet Take 10 mg by mouth once daily. cyanocobalamin (VITAMIN B-12) 500 mcg tablet Take 1 tablet by mouth once daily. ipratropium bromide (ATROVENT) 42 mcg (0.06 %) nasal spray Use 1 [place] in the nose twice daily. methyl salicylate-menthol (MUSCLE RUB) 15-10 % topical cream Apply to affected area three times daily as needed. levothyroxine (SYNTHROID) 150 mcg tablet levothyroxine Levothyroxine Active 150 MCG DAILY November 23, 2019 3:03pm 11-23-2019 [facility] ([id number]) meloxicam (MOBIC) 15 mg tablet timolol (TIMOPTIC-XE) 0.5 % ophthalmic gel-forming Use 1 Drop in both eyes daily at bedtime. lisinopril 2.5 mg tablet Take 2.5 mg by mouth once daily. 20 MG by mouth daily in the morning budesonide-formoterol (SYMBICORT) 160-4.5 mcg/actuation inhaler Inhale 2 Puffs as instructed twice daily. traZODone 100 mg tablet Take 100 mg by mouth daily at bedtime. 50 MG by mouth at bedtime CLARITIN 10 MG TAB Take 10 mg by mouth once daily. BENZTROPINE 1 MG TAB Take by mouth twice daily. 0.5 MG COLACE 50 MG CAP Take by mouth. 200 mg by mouth every morning VENTOLIN HFA 90 mcg/actuation inhaler (Patient not taking: No sig reported) omeprazole (PRILOSEC) 20 mg capsule Take 20 mg by mouth once daily. (Patient not taking: No sig reported) Cholecalciferol, Vitamin D3, 25 mcg (1,000 unit) cap Take 1,000 Units by mouth once daily. (Patient not taking: No sig reported) mupirocin (BACTROBAN) 2 % ointment Apply 1 application to affected area three times daily. (Patient not taking: No sig reported) MULTIVITAMIN W-MINERALS/LUTEIN (CENTRUM SILVER ORAL) Take by mouth. (Patient not taking: No sig reported) GARLIC OIL ORAL Take by mouth. (Patient not taking: No sig reported) ascorbic acid, vitamin C, (VITAMIN C) 500 mg tablet Take 500 mg by mouth once daily. (Patient not taking: No sig reported) naproxen 500 mg tablet Take 500 mg by mouth twice daily with meals. (Patient not taking: No sig reported) DOCOSAHEXANOIC ACID/EPA (FISH OIL ORAL) Take by mouth. (Patient not taking: No sig reported) AMLODIPINE BESYLATE (AMLODIPINE ORAL) Take by mouth. (Patient not taking: No sig reported) simvastatin (ZOCOR) 20 mg tablet Take 20 mg by mouth daily at bedtime. (Patient not taking: No sig reported) Gabapentin 300 mg tab Take by mouth. (Patient not taking: No sig reported) fluPHENAZine Decanoate 25 mg/mL syrg by INJECTION(UNSPECIFIED PARENTERAL ROUTES) route. (Patient not taking: No sig reported) ASPIRIN 81 MG TAB Take one(1) tablet daily. (Patient not taking: No sig reported) ATIVAN 0.5 MG TAB Take one(1) tablet two(2) times daily. (Patient not taking: No sig reported) ATIVAN 1 MG TAB Take one(1) tablet three times daily. (Patient not taking: No (more content not included)... [facility] Progress note 03-26-2023 Note Date & Type Note Facility 03-26-2023 Note HNO ID: [id number] Author: Vivienne Gonzáles LPN Service: ? Author Type: ? Type: Progress Notes Filed: 03/26/2023 7:31 PM Note Text: Verified name and date of . CC Post Void Residual HPI: Ernst Miles is a 67 year old male. The patient is here now for an appointment with MARIA DOLORES Christine MT, PA-COV. Procedure: Explained procedure to patient and verbalizes understanding. Performed a PVR. Patient urinated and instructed to empty bladder as much as possible just prior to having PVR done using bladder ultrasound scanner. Results of scan: 0 mL The patient tolerated the procedure well. Plan: Appointment with Johnathan. [facility] History of Present illness Narrative 03-26-2023 Johnathan Baird PA-C - 03/26/2023 4:19 PM EDTKiwill Gonzáles LPN - 03/26/2023 3:10 PM EDT Note Date & Type Note Facility 03-26-2023 History of Presen t illness Narrative Images from the original note were not included. [facility] NEW PATIENT CLINIC NOTE SERVICE DATE: 03/26/2023 SERVICE TIME: 4:19 PM NAME: Ernst Miles CHIEF COMPLAINT: BPH with LUTS HISTORY OF PRESENT ILLNESS: Ernst Miles is a 67 year old male presenting with BPH with LUTS history and he has been on Flomax and Proscar with good success since his UTI recently The patient reports he wanted to make sure he is on a good program to avoid UTI's and considering his UA today looks great And he feels good on the medications, I agree with the current therapy and if he has UTi like symptoms in the future we will have him get urine cultures And treat accordingly LUTS: Much improved since UTI treated and on Flomax and Proscar daily Other symptoms: LABS: No results found for: TESTOST No results found for: TESTFREE No results found for: PSA No results found for: HCT No results found for: PSA No results found for: CREAT . MEDICATIONS: OXYGEN, HOME THERAPY, Inhale 2 L/min as instructed as directed. 2-5 L/M finasteride (PROSCAR) 5 mg tablet Take 5 mg by mouth daily at bedtime. pantoprazole DR (PROTONIX) 40 mg tablet Take 40 mg by mouth once daily. rivastigmine tartrate (EXELON) 4.5 mg capsule Take 4.5 mg by mouth twice daily. tamsulosin (FLOMAX) 0.4 mg Take 0.8 mg by mouth daily at bedtime. fluPHENAZine decanoate (PROLIXIN DECANOATE) 25 mg/mL injection Inject 25 mg intramuscularly every 2 weeks. pravastatin (PRAVACHOL) 40 mg tablet Take 40 mg by mouth daily at bedtime. polyethylene glycol 3350 17 gram packet Take 17 g by mouth once daily. Dissolve dose in 4 - 8 ounces of liquid and take as directed. [id number]-[id number]-PF (REFRESH DIGITAL PF) 0.5-1-0.5 % dpet Use in eyes three times daily. One drop in both eyes three times daily ANTACID, CALCIUM CARBONATE, ORAL Take 500 mg by mouth twice daily. carbidopa-levodopa (SINEMET 25-100) 25-100 mg per tablet Take 2 tablets by mouth three times daily. citalopram hydrobromide (CELEXA) 10 mg tablet Take 10 mg by mouth once daily. cyanocobalamin (VITAMIN B-12) 500 mcg tablet Take 1 tablet by mouth once daily. ipratropium bromide (ATROVENT) 42 mcg (0.06 %) nasal spray Use 1 [place] in the nose twice daily. methyl salicylate-menthol (MUSCLE RUB) 15-10 % topical cream Apply to affected area three times daily as needed. levothyroxine (SYNTHROID) 150 mcg tablet levothyroxine Levothyroxine Active 150 MCG DAILY November 23, 2019 3:03pm 11-23-2019 [facility] ([id number]) meloxicam (MOBIC) 15 mg tablet timolol (TIMOPTIC-XE) 0.5 % ophthalmic gel-forming Use 1 Drop in both eyes daily at bedtime. lisinopril 2.5 mg tablet Take 2.5 mg by mouth once daily. 20 MG by mouth daily in the morning budesonide-formoterol (SYMBICORT) 160-4.5 mcg/actuation inhaler Inhale 2 Puffs as instructed twice daily. traZODone 100 mg tablet Take 100 mg by mouth daily at bedtime. 50 MG by mouth at bedtime CLARITIN 10 MG TAB Take 10 mg by mouth once daily. BENZTROPINE 1 MG TAB Take by mouth twice daily. 0.5 MG COLACE 50 MG CAP Take by mouth. 200 mg by mouth every morning VENTOLIN HFA 90 mcg/actuation inhaler (Patient not taking: No sig reported) omeprazole (PRILOSEC) 20 mg capsule Take 20 mg by mouth once daily. (Patient not taking: No sig reported) Cholecalciferol, Vitamin D3, 25 mcg (1,000 unit) cap Take 1,000 Units by mouth once daily. (Patient not taking: No sig reported) mupirocin (BACTROBAN) 2 % ointment Apply 1 application to affected area three times daily. (Patient not taking: No sig reported) MULTIVITAMIN W-MINERALS/LUTEIN (CENTRUM SILVER ORAL) Take by mouth. (Patient not taking: No sig reported) GARLIC OIL ORAL Take by mouth. (Patient not taking: No sig reported) ascorbic acid, vitamin C, (VITAMIN C) 500 mg tablet Take 500 mg by mouth once daily. (Patient not taking: No sig reported) naproxen 500 mg tablet Take 500 mg by mouth twice daily with meals. (Patient not taking: No sig reported) DOCOSAHEXANOIC ACID/EPA (FISH OIL ORAL) Take by mouth. (Patient not taking: No sig reported) AMLODIPINE BESYLATE (AMLODIPINE ORAL) Take by mouth. (Patient not taking: No sig reported) simvastatin (ZOCOR) 20 mg tablet Take 20 mg by mouth daily at bedtime. (Patient not taking: No sig reported) Gabapentin 300 mg tab Take by mouth. (Patient not taking: No sig reported) fluPHENAZine Decanoate 25 mg/mL syrg by INJECTION(UNSPECIFIED PARENTERAL ROUTES) route. (Patient not taking: No sig reported) ASPIRIN 81 MG TAB Take one(1) tablet daily. (Patient not taking: No sig reported) ATIVAN 0.5 MG TAB Take one(1) tablet two(2) times daily. (Patient not taking: No sig reported) ATIVAN 1 MG TAB Take one(1) tablet three times daily. (Patient not taking: No sig reported) SYNTHROID 100 MCG TAB Take 150 mcg by mouth. (Patient not taking: No sig reported) COSOPT 2 %-0.5 % EYE DROPS drops daily (Patient not taking: No sig reported) CLINDAMYCIN 1 % TOPICAL SOLN Apply to affected area(s) twice daily. (Patient not taking: No sig reported) PAST MEDICAL HISTORY: PAST MEDICAL HISTORY Diagnosis Date Allergic rhinitis, unspecified Anxiety disorder, unspecified Asthma Bipolar affective disorder (HCC) Chronic cough Depression, unspecified Essential (primary) hypertension Gastroesophageal reflux disease without esophagitis Hyperlipidemia, unspecified Hypo-osmolality and hyponatremia Hypokalemia Metabolic encephalopathy Obstructive and reflux uropathy, unspecified Other specified glaucoma Parkinson's disease (HCC) Schizophrenia (HCC) Unspecified hypothyroidism PAST SURGICAL HISTORY: PAST SURGICAL HISTORY Procedure Laterality Date NONE FAMILY HISTORY: FAMILY HISTORY Problem Relation Age of Onset Cancer Father Heart Mother SOCIAL HISTORY: Social Connections: Not on file REVIEW OF SYSTEMS: GENERAL: No fever, chills, weight loss, or fatigue. ENMT: Negative CARDIOVASCULAR:NO CHEST PAIN, PALPITATIONS, ANKLE EDEMA RESPIRATORY: No chronic cough, wheezing, dyspnea, hemoptysis. GENITOURINARY: SEE HPI MUSCULOSKELETAL:NO CHRONIC BACK PAIN, ARTHRITIS, CHRONIC NECK PAIN SKIN: NO VARICOSE VEINS, RASH, ABNORMAL ITCHING HEME/LYMPH/IMMUNE:Negative for prolonged bleeding, bruising easily or swollen nodes NEUROLOGICAL: NO HEADACHES, NUMBNESS, SEIZURES, STROKE DIABETES: No All other systems reviewed and are negative PHYSICAL EXAMINATION: Blood pressure 140/82, pulse 76, temperature 36.8 C (98.3 F), temperature source Temporal, resp. rate 14, height 182.9 cm (6'), weight 112 kg (247 lb), SpO2 96 %. GENERAL: WNL nutrition, no deformities, healthy appearing NEURO: Awake, alert and oriented x 3 and Normal gait PSYCH: No signs of depression, anxiety, or agitation ENMT (Ear, Nose, Mouth, Throat): No masses, adenopathy, icterus. Thyroid nonpalpable RESP: NL effort, no retractions or purse-lip breathing. CV: No extremity swelling, varices, edema, pallor, erythema GASTROINTESTINAL: Soft, nontender, nondistended, no masses. HERNIAS: None SKIN: No rash, lesions No palpable lymphadenopathy MUSCULOSKELETAL: Extremities normal. No deformities, edema, clubbing or skin discoloration. PROBLEM LIST REVIEW: Yes LABS: Results for orders placed or performed in visit on 03/26/23 UA DIP, URINE (POC) Result Value Ref Range GLUCOSE UA (POCT) Negative Negative mg/dL BILIRUBIN UA (POCT) Negative Negative KETONE UA (POCT) Negative Negative mg/dL SPECIFIC GRAVITY UA (POCT) 1.015 1.005 - 1.030 HEMOGLOBIN/BLOOD UA (POCT) Negative Negative PH UA (POCT) 5.5 4.5 - 8.0 PROTEIN UA (POCT) Negative Negative mg/dL UROBILINOGEN UA (POCT) 0.2 Normal E.U./dL NITRITE UA (POCT) Negative Negative LEUKOCYTES UA (POCT) Negative Negative COLOR UA (POCT) Yellow CLARITY UA (POCT) Clear PROCEDURES: PVR: 0 ml IMAGING: IMPRESSION/PLAN: 67 year old male with 1. Benign prostatic hyperplasia without lower urinary tract symptoms - ICD9: 600.00, ICD10: N40.0 (primary diagnosis) 2. Acute cystitis without hematuria - ICD9: 595.0, ICD10: N30.00 > UTI - resolved > continue Proscar and Flomax therapy > follow up as needed for UTI symptoms with cultures as needed I spent a total of 30 minutes on the date of the service which included preparing to see the patient, face to face patient care, completing clinical documentation, obtaining and/or reviewing separately obtained history, performing a medically appropriate examination, counseling and educating the patient/family/caregiver, ordering medications, tests, or procedures, and care coordination. MARIA DOLORES Christine MT, PA-C Verified name and date of . CC Post Void Residual HPI: Ernst Miles is a 67 year old male. The patient is here now for an appointment with MARIA DOLORES Christine MT, PA-COV. Procedure: Explained procedure to patient and verbalizes understanding. Performed a PVR. Patient urinated and instructed to empty bladder as much as possible just prior to having PVR done using bladder ultrasound scanner. Results of scan: 0 mL The patient tolerated the procedure well. Plan: Appointment with Johnathan. documented in this encounter [facility] Instructions 03-26-2023 Patient Instructions Note Date & Type Note Facility 03-26-2023 Instructions Johnathan Baird PA-C - 03/26/2023 4:17 PM EDT Ernst Miles ([id number]) 67 yo Male History of UTI- 01/2023 Component Latest Ref Rng & Units 03/26/2023 GLUCOSE UA (POCT) Negative mg/dL Negative BILIRUBIN UA (POCT) Negative Negative KETONE UA (POCT) Negative mg/dL Negative SPECIFIC GRAVITY UA (POCT) 1.005 - 1.030 1.015 HEMOGLOBIN/BLOOD UA (POCT) Negative Negative PH UA (POCT) 4.5 - 8.0 5.5 PROTEIN UA (POCT) Negative mg/dL Negative UROBILINOGEN UA (POCT) Normal E.U./dL 0.2 NITRITE UA (POCT) Negative Negative LEUKOCYTES UA (POCT) Negative Negative COLOR UA (POCT) Yellow CLARITY UA (POCT) Clear > UA - Completely Negative , No signs of UTI > Post Void Residual - 0 ml > Continue Flomax 0.8 mg ( 2 capsule) at bedtime > Continue Proscar 5 mg ( 1 tablet ) at bedtime Follow-up as needed for Urinary Infection Symptoms or Urinary Retention Symptoms Johnathan Baird, SHELLIES, MT, JORGE documented in this encounter [facility] Note 03-25-2023 Telephone Encounter - Vivienne Gonzáles LPN - 03/25/2023 10:55 AM EDTTelephone Encounter - Vivienne Gonzáles LPN - 03/25/2023 8:46 AM EDTTelephone Encounter - Vivienne Gonzáles LPN - 03/25/2023 8:39 AM EDT Note Date & Type Note Facility 03-25-2023 Miscellaneous Notes Formattin g of this note might be different from the original. Received medical records. Scanned to [facility] via [place]. Vivienne Gonzáles LPN Called [facility] and spoke with nurse, Ashley, community center coordinator for location patient resides. Per Ashley patient is seen by Dr. Yu who wants to have patient seen by specialist due to patient having been treated in January and in January with antibiotics. Patient has BPH and is on Flomax and Proscar and is on a scheduled toileting program and is continent for the most part. Ashley reports that patient is a poor historian and will have caregiver with him at appointment for assistance. She will fax over face sheet and current medications. Vivienne Gonzáles LPN Called patient- Deep, telephonic case manager for [facility] that patient used to reside at, answered phone. States that patient was admitted to [facility] back in the fall. Vivienne Gonzáles LPN documented in this encounter [facility] Evaluation note Note Date & Type Note Facility documented in this encounter [facility] Summary Purpose Family History No Family History Records Found Advance Directives No Advanced Directives Records Found Additional Source Comments Source Comments (unrecognize d section and content) In the event this informatio n is protected by the Federal Confidentiality of Alcohol and Drug Abuse Patient Records regulations: The Federal rules restrict any use of the information to criminally investigate or prosecute any alcohol or drug abuse patient.[facility] the event this information is protected by the Federal Confidentiality of Alcohol and Drug Abuse Patient Records regulations: The Federal rules restrict any use of the information to criminally investigate or prosecute any alcohol or drug abuse patient.[facility] the event this information is protected by the Federal Confidentiality of Alcohol and Drug Abuse Patient Records regulations: The Federal rules restrict any use of the information to criminally investigate or prosecute any alcohol or drug abuse patient.[facility] Reason for Visit (unrecogniz ed section and content) Reason Comments Benign Prostatic Hypertrophy New Patient Reason Comments 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 - Other Care Teams (unrecognized sec tion and content) 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 This clinical summary was aggregated from multiple sources. Caution should be exercised in using it in the provision of clinical care. This summary normalizes information from multiple sources, and as a consequence, information in this document may materially change the coding, format and clinical context of patient data. In addition, data may be omitted in some cases. CLINICAL DECISIONS SHOULD BE BASED ON THE PRIMARY CLINICAL RECORDS. [employer] provides no warranty or guarantee of the accuracy or completeness of information in this document.
[2024-01-17 08:58] LABS: Anion Gap 5 (5-15); BUN 8 mg/dL (7-18); BUN/Creat Ratio 8.9 RATIO (10-20); Chloride 104 mmol/L (98-107); EST Glomerular Filtration Rate 90 mL/min (>60); Est Glom Filt Rate - Afr Amer 109 mL/min (>60); Glucose 102 mg/dL (74-106); Potassium 4.4 mmol/L (3.5-5.1); Sodium Level 139 mmol/L (136-145)
== END ==
LOC: OLS.SW 05:00
PROVIDERS: PCP Family Medicine Geriatric Medicine; Visit Provider Internal Medicine
DX: R53.83 Other fatigue (principal)
CPT/HCPCS: 36415; 80048

== ENCOUNTER → 2024-06-23 | Outpatient (CLI) | payer MEDICARE, MEDICAID, SELFPAY ==
--- NOTE | 2024-06-23 12:32 | MRI_ITS ---
STUDY: MRI BRAIN WITH AND WITHOUT CONTRAST REASON FOR EXAM: Male, 68 years old. follow-up meningioma C/O POSTERIOR HEADACHE AND THROBBING TECHNIQUE: Standardized multiplanar fat and water weighted pulse sequences were obtained. IV 25 cc clariscan was administered for the contrast portion of the examination. COMPARISON: 05/02/2023 FINDINGS: There is mild cerebral atrophy with widening of the extra-axial spaces and ventricular dilatation. There are a limited number of small white matter hyperintensities, distributed throughout the deep white matter tracts of the cerebral hemispheres, consistent with mild chronic white matter ischemic changes. There is no evidence for recent intracranial ischemia or other cause of cytotoxic edema on diffusion weighted imaging (DWI). Normal T2* images of the brain without demonstrated susceptibility artifact. There is no demonstrated hemosiderin stain. Normal bilateral basal ganglia. Normal thalami. There is no extra-axial fluid accumulation. Normal flow voids within the major intracranial circulation suggesting patency by spin echo criteria. Normal venous enhancement. No change in a 1 cm round T1 isointense and T2 isointense solidly enhancing mass of the anterior aspect of the left side of the falx cerebri consistent with a meningioma. Normal sella turcica, pituitary gland, infundibular stalk, optic chiasm and hypothalamus. Normal tectal plate and pineal gland. Normal midbrain, melisa and medulla. Normal cerebellum. Normal basal cisterns. Normal bilateral temporal bones. Normal bilateral internal auditory canals. No demonstrated orbital abnormality, within the constraints of a routine brain study. Normal visualized paranasal sinuses. Normal calvarium and skull base. Normal visualized soft tissue structures. Normal visualized upper cervical spine. MRI/Brain W/WO Contrast IMPRESSION: Involutional changes of the brain, as described above. No change in small left frontal meningioma. Electronically Signed: Ike Lacy MD at 14:37 EDT ,
[2024-06-23 12:57] LABS: CREATININE FINGERSTICK < 1.0 mg/dL (0.70-1.30); EGFR FINGERSTICK > 60.0000 mL/min (>60)
== END | disposition home or self-care (01) ==
LOC: MRI 12:23
PROVIDERS: PCP Family Medicine Geriatric Medicine; Referring Provider Psychiatry & Neurology Neurology; Visit Provider Psychiatry & Neurology Neurology
DX: Z01.812 Encounter for preprocedural laboratory examination (principal); D32.9 Benign neoplasm of meninges, unspecified
CPT/HCPCS: 70553; A9575

== ENCOUNTER → 2024-06-25 | Outpatient (REF) | payer MEDICARE, MEDICAID, SELFPAY ==
[2024-06-25 08:17] LABS: Absolute Lymphocyte Count 1.93 X10^3/uL (0.83-4.51); Absolute Neutrophil Count 4.2 X10^3/uL (2.0-7.7); Basophil# 0.04 X10^3/uL; Basophil% 0.6 % (0-1); Eosinophil# 0.19 X10^3/uL; Eosinophils% 2.7 % (0-5); Hematocrit 43.1 % (40-54); Hemoglobin 14.1 g/dL (13.0-16.5); Lymphocyte # 1.93 X10^3/ul (0.83-4.51); Lymphocyte % 27.6 % (19-41); Mean Corp Hgb Conc 32.7 g/dL (32-36); Mean Corpuscular Hgb 28.6 pg (27.0-32.0); Mean Corpuscular Volume 87.4 fL (80-94); Mean Platelet Vol. 9.2 fl (6.2-12.0); Monocyte% 8.6 % (0-10); NRBC Flagged by Analyzer 0 % (0-5); Neutrophil # 4.19 X10^3/uL (2.7-7.7); Neutrophil % 59.9 % (47-70); Platelet Count 210 K/mm3 (150-450); RBC Distribution Width CV 14.1 % (11.6-14.6); RBC Distribution Width SD 45.3 fl (35.1-43.9); Red Blood Count 4.93 M/mm3 (4.6-6.2)
[2024-06-25 08:32] LABS: Anion Gap 4 (5-15); BUN 14 mg/dL (7-18); BUN/Creat Ratio 14.5 RATIO (10-20); Calcium,Total 8.5 mg/dL (8.5-10.1); Chloride 102 mmol/L (98-107); Cholesterol 155 mg/dL (200); Creatinine, Serum 0.97 mg/dL (0.70-1.30); EST Glomerular Filtration Rate 82 mL/min (>60); Est Glom Filt Rate - Afr Amer 99 mL/min (>60); Glucose 94 mg/dL (74-106); High Density Lipoprotein 48 mg/dL; Magnesium 2.4 mg/dL (1.6-2.6); Potassium 4.1 mmol/L (3.5-5.1); Sodium Level 135 mmol/L (136-145); Triglycerides 179 mg/dL; Very Low Density Lipoprotein 36 mg/dL (5-40)
== END ==
LOC: OLS.SW 05:00
PROVIDERS: PCP Family Medicine Geriatric Medicine; Referring Provider Internal Medicine; Visit Provider Internal Medicine
DX: I10 Essential (primary) hypertension (principal); E78.5 Hyperlipidemia, unspecified
CPT/HCPCS: 36415; 80048; 80061; 83735; 85025

== ENCOUNTER → 2024-08-04 05:00 | Outpatient (REF) | payer MEDICARE, MEDICAID, SELFPAY ==
[2024-08-04 09:39] LABS: Hematocrit 39.1 % (40-54); Hemoglobin 12.8 g/dL (13.0-16.5); Mean Corp Hgb Conc 32.7 g/dL (32-36); Mean Corpuscular Volume 88.5 fL (80-94); Mean Platelet Vol. 9.3 fl (6.2-12.0); Platelet Count 182 K/mm3 (150-450); RBC Distribution Width CV 14.5 % (11.6-14.6); Red Blood Count 4.42 M/mm3 (4.6-6.2)
== END ==
LOC: OLS.SW 05:00
PROVIDERS: PCP Family Medicine Geriatric Medicine; Visit Provider Internal Medicine
DX: I10 Essential (primary) hypertension (principal); G93.41 Metabolic encephalopathy
CPT/HCPCS: 36415; 85027

== ENCOUNTER → 2024-08-28 | Outpatient (REF) | payer MEDICARE, MEDICAID, SELFPAY ==
[2024-08-28 10:02] LABS: Vitamin B12 670 pg/mL (211-911)
== END ==
LOC: OLS.SW 05:00
PROVIDERS: PCP Family Medicine Geriatric Medicine; Visit Provider Internal Medicine
DX: D51.8 Other vitamin B12 deficiency anemias (principal)
CPT/HCPCS: 36415; 82607

== ENCOUNTER → 2024-09-03 | Outpatient (REF) | payer MEDICARE, MEDICAID, SELFPAY ==
[2024-09-03 11:39] LABS: Anion Gap 8 (5-15); BUN 12 mg/dL (7-18); BUN/Creat Ratio 15.8 RATIO (10-20); Calcium,Total 8.7 mg/dL (8.5-10.1); Chloride 104 mmol/L (98-107); Creatinine, Serum 0.76 mg/dL (0.70-1.30); EST Glomerular Filtration Rate 108 mL/min (>60); Est Glom Filt Rate - Afr Amer 131 mL/min (>60); Glucose 91 mg/dL (74-106); Potassium 4.9 mmol/L (3.5-5.1); Sodium Level 132 mmol/L (136-145)
== END ==
LOC: OLS.SW 05:00
PROVIDERS: PCP Family Medicine Geriatric Medicine; Visit Provider Internal Medicine
DX: I10 Essential (primary) hypertension (principal); R60.9 Edema, unspecified
CPT/HCPCS: 36415; 80048

== ENCOUNTER → 2024-09-04 | Outpatient (REF) | payer MEDICARE, MEDICAID, SELFPAY | LOC: OLS.SW 05:00 | PROVIDERS: PCP Family Medicine Geriatric Medicine; Visit Provider Internal Medicine | DX: R60.9 Edema, unspecified (principal) | CPT/HCPCS: 83880 ==

== ENCOUNTER → 2024-09-07 | Outpatient (REF) | payer MEDICARE, MEDICAID, SELFPAY ==
[2024-09-07 11:02] LABS: Anion Gap 10 (5-15); BUN 11 mg/dL (7-18); Calcium,Total 9.2 mg/dL (8.5-10.1); Chloride 101 mmol/L (98-107); Creatinine, Serum 0.85 mg/dL (0.70-1.30); EST Glomerular Filtration Rate 95 mL/min (>60); Est Glom Filt Rate - Afr Amer 115 mL/min (>60); Glucose 91 mg/dL (74-106); Potassium 4.1 mmol/L (3.5-5.1); Sodium Level 136 mmol/L (136-145)
== END ==
LOC: OLS.SW 05:00
PROVIDERS: PCP Family Medicine Geriatric Medicine; Visit Provider Internal Medicine
DX: Z79.899 Other long term (current) drug therapy (principal)
CPT/HCPCS: 36415; 80048

== ENCOUNTER → 2024-09-14 | Outpatient (REF) | payer MEDICARE, MEDICAID, SELFPAY ==
[2024-09-14 08:45] LABS: Iron Binding Capacity,Total 362 ug/dL (250-450)
== END ==
LOC: OLS.SW 05:00
PROVIDERS: PCP Family Medicine Geriatric Medicine; Visit Provider Internal Medicine
DX: R53.83 Other fatigue (principal)
CPT/HCPCS: 36415; 83550

== ENCOUNTER → 2024-09-18 | Outpatient (REF) | payer MEDICARE, MEDICAID, SELFPAY ==
[2024-09-18 11:59] LABS: Troponin-I HS 18 pg/mL (3.0-78.0)
== END ==
LOC: OLS.SW 10:13
PROVIDERS: PCP Family Medicine Geriatric Medicine; Visit Provider Internal Medicine
DX: I10 Essential (primary) hypertension (principal)
CPT/HCPCS: 84484

== ENCOUNTER → 2024-09-29 | Outpatient (REF) | payer MEDICARE, MEDICAID, SELFPAY | LOC: OLS.SW 05:00 | PROVIDERS: PCP Family Medicine Geriatric Medicine; Visit Provider Internal Medicine | DX: Z79.899 Other long term (current) drug therapy (principal) | CPT/HCPCS: 36415; 84443 ==

== ENCOUNTER → 2024-10-28 04:00 | Outpatient (REF) | payer MEDICARE, MEDICAID, SELFPAY ==
[2024-10-28 09:10] LABS: Anion Gap 6 (5-15); BUN 10 mg/dL (7-18); Calcium,Total 8.5 mg/dL (8.5-10.1); Chloride 101 mmol/L (98-107); Creatinine, Serum 0.83 mg/dL (0.70-1.30); EST Glomerular Filtration Rate 97 mL/min (>60); Est Glom Filt Rate - Afr Amer 118 mL/min (>60); Glucose 94 mg/dL (74-106); Potassium 4.1 mmol/L (3.5-5.1); Sodium Level 135 mmol/L (136-145)
== END ==
LOC: OLS.SW 04:00
PROVIDERS: PCP Family Medicine Geriatric Medicine; Referring Provider Internal Medicine; Visit Provider Internal Medicine
DX: I10 Essential (primary) hypertension (principal)
CPT/HCPCS: 36415; 80048

== ENCOUNTER 2024-11-27 12:42 | Outpatient (CLI) | payer MEDICARE, MEDICAID, SELFPAY ==
--- NOTE | 2024-11-27 12:58 | ECHOCS_ITS ---
Reason For Study: Dyspnea/SOB Procedure This was a 2D Doppler, Color Flow transthoracic echocardiogram. Contrast injection was performed. The study was technically difficult. Exam performed in department. Left Ventricle Normal size and thickness. The left ventricular ejection fraction is 60 %. Mild posterior hypokinesis. Stage 1 diastolic dysfunction. Right Ventricle Normal right ventricle. Atria The left and right atria are normal. Mitral Valve There is Mild focal posterior mitral annular calcification. Tricuspid Valve Mild tricuspid valve insufficiency. Right ventricular systolic pressure estimated to be 40 mmHg. Aortic Valve Trisinus/trileaflet aortic valve. Pulmonic Valve The pulmonic valve is not well visualized. Great Vessels Normal sized aortic root. Pericardium/Pleural No pericardial effusion. Medication Diluted definity 1.5ml given slow IV push to enhance endocardial definition. MMode/2D Measurements & Calculations LVIDd: 5.3 cm IVSd: 1.0 cm asc Aorta Diam: 3.5 cm LVIDs: 3.6 cm LVPWd: 1.00 cm RVDd: 3.8 cm FS: 32.3 % LAV(MOD-bp): 41.8 ml LVAd ap4: 33.7 cm2 SV(MOD-sp4): 80.3 ml LAV(MOD-bp) Indexed: 16.9 ml/m2 LVLd ap4: 7.9 cm SI(MOD-sp4): 32.4 ml/m2 LAV(MOD-sp2): 43.2 ml EDV(MOD-sp4): 116.9 ml LAV(MOD-sp4): 35.1 ml EDV(sp4-el): 122.0 ml LVAs ap4: 17.2 cm2 LVLs ap4: 6.7 cm ESV(MOD-sp4): 36.6 ml ESV(sp4-el): 37.3 ml EF(MOD-sp4): 68.7 % EF(sp4-el): 69.4 % SV(sp4-el): 84.6 ml LA A4 area: 15.6 cm2 LA dimension(2D): 3.7 cm RA A4 area: 15.6 cm2 TAPSE: 2.1 cm Time Measurements MV dec time: 0.28 sec Doppler Measurements & Calculations MV E max qamar: 52.7 cm/sec Lat Peak E' Qamar: 7.4 cm/sec Med Peak E' Qamar: 8.5 cm/sec MV A max qamar: 55.6 cm/sec E/E' lat: 7.1 E/E' med: 6.2 MV E/A: 0.95 MV dec slope: 185.4 cm/sec2 Ao V2 max: 136.8 cm/sec LV V1 max: 117.7 cm/sec Ao max P.5 mmHg LV V1 max P.5 mmHg Ao V2 mean: 108.3 cm/sec Ao mean P.0 mmHg Ao V2 VTI: 30.9 cm PA V2 max: 89.8 cm/sec TR max qamar: 252.2 cm/sec TR max P.4 mmHg ECHO/Echo Complete W/ Contrast Interpretation Summary The left ventricular ejection fraction is 60 %. Mild posterior hypokinesis. Sta ge I diastolic dysfunction. Mild tricuspid valve insufficiency. Right ventricular systolic pressure estimated to be 40 mmHg. The study was technically difficult. Ordering Physician: Alexei Locke Referring Physician: Ayad Brown Chi Performed By: Shawnee Vidal, IBAN, RVT
--- NOTE | 2024-11-27 12:59 | CT_ITS ---
STUDY: CT CHEST T ABDOMEN WITHOUT CONTRAST REASON FOR EXAM: Male, 69 years old. CHEST PAIN OVER READ ONLY RADIATION DOSAGE (If Supplied By Facility): CTDIvol = ( 76 ) mGy, DLP = ( 2727.26 ) mGycm TECHNIQUE: Transaxial imaging was performed without the administration of intravenous contrast material. Individualized dose optimization techniques were used for this CT. COMPARISON: No relevant priors. FINDINGS: CHEST The lungs are normal. There is no demonstrated pleural abnormality. There are calcifications of the coronary arteries. Normal mediastinum. Normal hilar regions. Normal unenhanced pulmonary arteries. There is mild atherosclerotic calcification of the aortic arch. There are mild degenerative changes of the thoracic spine. Small hiatal hernia. IMPRESSION: Coronary artery calcification. Electronically Signed: Antonio Uribe MD at 14:43 EST , STUDY: CT CHEST WITH CONTRAST REASON FOR EXAM: Male, 69 years old. CHEST PAIN OVER READ ONLY RADIATION DOSAGE (If Supplied By Facility): CTDIvol = ( 48.05 ) mGy, DLP = ( 2727.26 ) mGycm TECHNIQUE: Transaxial imaging was performed following intravenous administration of ISOVUE 370-100ml. Individualized dose optimization techniques were used for this CT. COMPARISON: No relevant priors. FINDINGS: CHEST The lungs are normal. There is no demonstrated pleural abnormality. There are calcifications of the coronary arteries. Normal mediastinum. Normal hilar regions. Normal unenhanced pulmonary arteries. There is mild atherosclerotic calcification of the aortic arch. There are mild degenerative changes of the thoracic spine. There is no demonstrated abnormality of the visualized upper abdomen. CT/Limited Chest CT Cardiac Only IMPRESSION: Coronary artery calcification. Electronically Signed: Antonio Uribe MD at 14:44 EST ,
[2024-11-27 13:20] VITALS: BP 158/79; PULSE 73; RESP 16; O2SAT 95; BMI 37.2
[2024-11-27 13:55] VITALS: BP 127/75; PULSE 95
[2024-11-27] MEDS: Nitroglycerin SL (ED/IMG/CATH) 0.4 MG TABLET SL (13:55)
[2024-11-27 14:04] VITALS: BP 130/70; PULSE 72; RESP 16; O2SAT 95
--- NOTE | 2024-11-28 11:03 | CCTA.WCONT ---
CCTA w/Cont Coronary Arteries Date of Study:: 11/27/24 Chest pain Coronary Calcium Scoring: High-resolution Computed Tomographic imaging of the chest was performed on [11/27/24 ], with particular attention paid to the coronary arteries. Intravenous contrast agent was administered per protocol and images reconstructed and displayed. The image quality as well as suboptimal. LEFT MAIN CORONARY ARTERY: Arises from the left coronary cusp with minimal stenosis.. coronary calcium score 63.8 [] LEFT ANTERIOR DESCENDING CORONARY ARTERY: This arises from the left main coronary artery. There is eccentric calcification noted proximally and in the midsegment. There is mild to moderate stenosis noted. No high-grade stenosis is present. The vessel continues to the apex of the ventricle. Coronary calcium score was 109. [] LEFT CIRCUMFLEX CORONARY ARTERY: This vessel is not very well-visualized its nondominant with no coronary calcium score and a command cannot be made about stenosis. [] RIGHT CORONARY ARTERY: Ostial 50% stenosis this arises from the right coronary cusp and there is mild disease noted the vessel bifurcates to the posterior descending artery and posterolateral vessel. Coronary calcium score is 33. [] THORACIC AORTA: [] PULMONARY ARTERY: [] LEFT ATRIUM/APPENDAGE: [] MITRAL VALVE: [] AORTIC VALVE: [] LEFT VENTRICLE: [] CORONARY CALCIUM SCORE: Total coronary calcium score is 206 CT angio with coronary calcium score demonstrating moderate ostial right coronary stenosis and eccentric nonocclusive calcification and stenosis noted in the proximal to mid left anterior descending artery. []
== END 2024-11-27 23:59 | disposition home or self-care (01) ==
LOC: CVS 12:44
PROVIDERS: PCP Family Medicine Geriatric Medicine; Referring Provider Internal Medicine Cardiovascular Disease; Visit Provider Internal Medicine Cardiovascular Disease
DX: R07.9 Chest pain, unspecified (principal); J44.9 Chronic obstructive pulmonary disease, unspecified; I25.10 Atherosclerotic heart disease of native coronary artery without angina pectoris; R06.09 Other forms of dyspnea; I10 Essential (primary) hypertension; I07.1 Rheumatic tricuspid insufficiency
CPT/HCPCS: 75571; 75574; 76380; 93306; Q9957; Q9967; A4216; C8929

== ENCOUNTER → 2025-01-13 05:00 | Outpatient (REF) | payer MEDICARE, MEDICAID, SELFPAY ==
[2025-01-13 06:56] LABS: Hematocrit 41.1 % (40-54); Hemoglobin 13.3 g/dL (13.0-16.5); Mean Corp Hgb Conc 32.4 g/dL (32-36); Mean Corpuscular Hgb 28.6 pg (27.0-32.0); Mean Corpuscular Volume 88.4 fL (80-94); Mean Platelet Vol. 9.1 fl (6.2-12.0); Platelet Count 199 K/mm3 (150-450); RBC Distribution Width CV 14.6 % (11.6-14.6); RBC Distribution Width SD 47.2 fl (35.1-43.9); Red Blood Count 4.65 M/mm3 (4.6-6.2); White Blood Count 6.2 K/mm3 (4.4-11.0)
[2025-01-13 07:07] LABS: Anion Gap 5 (5-15); BUN 13 mg/dL (7-18); BUN/Creat Ratio 16.8 RATIO (10-20); Calcium,Total 8.9 mg/dL (8.5-10.1); Chloride 101 mmol/L (98-107); Creatinine, Serum 0.77 mg/dL (0.70-1.30); EST Glomerular Filtration Rate 106 mL/min (>60); Est Glom Filt Rate - Afr Amer 128 mL/min (>60); Glucose 102 mg/dL (74-106); Sodium Level 135 mmol/L (136-145)
== END ==
LOC: OLS.SW 05:00
PROVIDERS: PCP Family Medicine Geriatric Medicine; Visit Provider Internal Medicine
DX: I10 Essential (primary) hypertension (principal); E78.5 Hyperlipidemia, unspecified; G20.A1 Parkinson's disease without dyskinesia, without mention of fluctuations
CPT/HCPCS: 36415; 80048; 85027

== ENCOUNTER → 2025-03-11 06:12 | Outpatient (REF) | payer MEDICARE, MEDICAID, SELFPAY ==
[2025-03-11 08:13] LABS: Vitamin B12 722 pg/mL (180-914)
== END ==
LOC: OLS.SW 06:12
PROVIDERS: PCP Family Medicine Geriatric Medicine; Visit Provider Internal Medicine
DX: D51.8 Other vitamin B12 deficiency anemias (principal)
CPT/HCPCS: 36415; 82607

== ENCOUNTER → 2025-03-12 06:25 | Outpatient (REF) | payer MEDICARE, MEDICAID, SELFPAY ==
[2025-03-12 08:44] LABS: Vitamin B12 703 pg/mL (180-914)
== END ==
LOC: OLS.SW 06:25
PROVIDERS: PCP Family Medicine Geriatric Medicine; Visit Provider Internal Medicine
DX: D51.8 Other vitamin B12 deficiency anemias (principal)
CPT/HCPCS: 36415; 82607

== ENCOUNTER → 2025-04-12 05:00 | Outpatient (REF) | payer MEDICARE, MEDICAID, SELFPAY ==
[2025-04-12 10:24] LABS: Hemoglobin A1c 5.8 % (<=5.6)
[2025-04-12 10:31] LABS: Magnesium 2.3 mg/dL (1.5-2.2)
== END ==
LOC: OLS.SW 05:00
PROVIDERS: PCP Family Medicine Geriatric Medicine; Visit Provider Internal Medicine
DX: I10 Essential (primary) hypertension (principal); J44.9 Chronic obstructive pulmonary disease, unspecified
CPT/HCPCS: 36415; 83036; 83735; 84443

== ENCOUNTER → 2025-04-28 | Outpatient (REF) | payer MEDICARE, MEDICAID, SELFPAY | LOC: OLS.SW 05:00 | PROVIDERS: PCP Family Medicine Geriatric Medicine; Visit Provider Internal Medicine | DX: E03.9 Hypothyroidism, unspecified (principal) | CPT/HCPCS: 36415; 84443 ==

== ENCOUNTER → 2025-08-03 | Outpatient (REF) | payer MEDICARE, MEDICAID, SELFPAY ==
[2025-08-03 10:10] LABS: Cholesterol 152 mg/dL (<=200); Low Density Lipoprotein Calc. 79 mg/dL; Triglycerides 153 mg/dL; Very Low Density Lipoprotein 31 mg/dL (5-40); cholesterol:hdl ratio screen 3.61
== END ==
LOC: OLS.SW 05:00
PROVIDERS: PCP Family Medicine Geriatric Medicine; Visit Provider Internal Medicine
DX: E78.5 Hyperlipidemia, unspecified (principal)
CPT/HCPCS: 36415; 80061

== ENCOUNTER → 2025-08-19 04:00 | Outpatient (REF) | payer MEDICARE, MEDICAID, SELFPAY ==
--- OUTSIDE RECORDS SUMMARY | 2025-08-19 03:37 | XMS RPT_ITS | CCD ---
Author Organization [facility] CliniSy[facility] Care Team Providers Care Test Preparation Tutor Name Role Phone Dr. Ayad Brown Chi Primary Care Provider Kevin, Dr. Ayad Curtis Referring Provider Dr. Geovanny Strong Attending Provider [phone] Kevin, Dr. Ayad Curtis Primary Care Provider [phone] Kevin, Dr. Ayad Curtis Referring Provider Dr. Geovanny Strong Attending Provider Dr. Dominga Camar[place] Emergency Provider Dr. Vinnie Avina Attending Provider Dr. Ayad Brown Chi Primary Care Provider [phone] Vinnie Avina Admit Provider Dr. Vinnie Avina Other Provider Dr. Sidney Haskins Attending Provider Dr. Sidney Haskins Other Provider Dr. Rosalind Dowd Attending Provider Dr. Rosalind Dowd Other Provider Dr. Ayad Brown Chi Primary Care Provider Dr. Dominga Camarillo Emergency Provider Dr. Vinnie Avina Attending Provider Dr. Vinnie Avina Admit Provider Dr. Vinnie Avina Other Provider Dr. Sidney Haskins Attending Provider Dr. Sidney Haskins Other Provider Noemí, Dr. Rosalind Foster Attending Provider Koram, Dr. Rosalind Foster Other Provider [phone] Kevin, Dr. Ayad Curtis Primary Care Provider Kevin, Dr. Ayad Curtis Referring Provider Nikolas, Dr. Miller Attending Provider Justin WASHINGTON, Jossue R Primary Care Provider Kevin, Dr. Ayad Curtis Primary Care Provider Kevin, Dr. Ayad Curtis Referring Provider Nikolas, Dr. Miller Attending Provider Kevin, Dr. Ayad Curtis Primary Care Provider Kevin, Dr. Ayad Curtis Referring Provider Nikolas, Dr. Miller Attending Provider Justin WASHINGTON, Jossue Sims Primary Care Provider Kevin WASHINGTON, Dr. Ayad Curtis Primary Care Provider [phone] Kevin WASHINGTON, Dr. Ayad Curtis Referring Provider [phone] Chucky WASHINGTON, Dr. Linda Attending Provider Phillip WASHINGTON, Dr. Zuniga Attending Provider Unavaila joselito Connor MD, Dr. Miller Attending Provider JOHNATHAN KELLER Attending Unavailable JOSSUE BELL Primary Care Unavailable Kevin, Ayad Chi Primary Care Unavailable Kevin, Ayad Chi Referring Unavailable Paul Connor Attending Unavailable Kevin, Ayad Chi Primary Care Unavailable Kevin, Ayad Chi Referring Unavailable Paul Connor Attending Unavailable Kevin, Ayad Chi Primary Care Unavailable Gudla Nadia LI Attending Unavailable Kevin, Ayad Chi Primary Care Unavailable Gudla Nadia LI Attending Unavailable Gudla Nadia LI Attending Unavailable Kevin, Ayad Chi Primary Care Unavailable Kevin, Ayad Chi Primary Care Unavailable Alexei Locke Referring Unavailable Alexei Locke Attending Unavailable Kevin, Ayad Chi Primary Care Unavailable Gudla OLS, Nadia Referring Unavailable Gudla OLS, Nadia Attending Unavailable Kevin, Ayad Chi Primary Care Unavailable Gudla OLS, Nadia Attending Unavailable Kevin, Ayad Chi Primary Care Unavailable Gudla OLS, Nadia Attending Unavailable Kevin, Ayad Chi Primary Care Unavailable Kevin, Ayad Chi Referring Unavailable Chucky, Alexei Attending Unavailable Kevin, Ayad Chi Primary Care Unavailable Kevin, Ayad Chi Referring Unavailable Chucky, Alexei Attending Unavailable Kevin, Ayad Chi Primary Care Unavailable Chucky, Alexei Attending Unavailable Kevin, Ayad Chi Primary Care Unavailable Kevin, Ayad Chi Referring Unavailable Chucky, Alexei Attending Unavailable Kevin, Ayad Chi Primary Care Unavailable Chucky, Alexei Consulting Unavailable Chucky, Alexei Referring Unavailable UrielBrian castroril Attending Unavailable Kevin, Ayad Chi Primary Care Unavailable Gudla OLS, Nadia Attending Unavailable Kevin, Ayad Chi Primary Care Unavailable Gudla OLS, Nadia Attending Unavailable Kevin, Ayad Chi Primary Care Unavailable Gudla OLS, Nadia Attending Unavailable Kevin, Ayad Chi Primary Care Unavailable Gudla OLS, Nadia Attending Unavailable Kevin, Yaad Chi Primary Care Unavailable Gudla OLS, Nadia Attending Unavailable Kevin, Ayad Chi Primary Care Unavailable Gudla OLS, Nadia Attending Unavailable Kevin, Ayad Chi Primary Care Unavailable Gudla OLS, Nadia Attending Unavailable Kevin, Ayad Chi Primary Care Unavailable Gudla OLS, Nadia Attending Unavailable Kevin , Dr. Ayad Curtis Primary Care Physician Dr. Nadia Fisher MD Attending Physician Unavail able Dr. Ayad Brown MD, Chi Referring Provider Dr. Paul Connor MD Attending Physician Dr. Alexei Locke MD Attending Physician Dr. Nadia Fisher MD Primary Care Physician Unav ailable Allergies Allergy Classification Reported Allergen(s) Allergy Type Date of Onset Reaction(s) Facility (20 sources) Penicillins; Translations: [PENICILLINS] Allergy to substance 04-16-2013 Unknown [facility] Medications Current Medications Medication Drug Class(es) Dates Sig (Normalized) Sig (Original) acetaminophen 650 mg rectal suppository (6 sources) Start: 06-02-2024 Acetaminophen 650 mg suppository Active 650 mg RC Q4H as needed June 02, 2024 12:00am Complies with drug therapy Start: 06-02-2024 take 2 tablets by [facility] every four to six hours as needed Acetaminophen 325 mg tablet,chewable Active 650 mg PO EVERY 4-6 HOURS as needed for Elevated temp June 02, 2024 12:00am Complies with drug therapy Start: 06-02-2024 take 2 tablets by [facility] every four to six hours as needed Acetaminophen 325 mg tablet,chewable Active 650 mg PO EVERY 4-6 HOURS as needed for Elevated temp June 02, 2024 12:00am acetaminophen 325 mg / HYDROcodone bitartrate 5 mg oral tablet (5 sources) Opioid Agonist Start: 04-14-2021 take 1 tablet by mouth every six hours as needed Hydrocodone-Acetaminophen Active 1 TABLET PO EVERY 6 HOURS NEEDED 12 3 April 14, 2021 albuterol 0.83 mg/ml inhalation solution (20 sources) beta2-Adren ergic Agonist Start: 06-02-2024 take 2.5 mg by inhalation every four hours as needed Albuterol Sulfate 2.5 mg /3 mL (0.083 %) solution for nebulization Active 2.5 mg INHALATION Q4H as needed June 02, 2024 12:00am Complies with drug therapy Start: 09-15-2022 Albuterol Sulf ate 90 mcg/actuation Hfa Aerosol Inhaler Active 2 NMA INHALATION EVERY 6 HOURS as needed for Shortness Of Breath Or Wheezing September 15, 2022 12:00am Complies with drug therapy Start: 09-15-2022 take 1 puff(s) by in halation every six hours Albuterol Sulfate Active 2 PUFF INHALATION EVERY 6 HOURS September 14, 2022 11:00pm Start: 08-06-2022 Albuterol Acti ve 2 MCG INHALATION August 06, 2022 12:00am Start: 09-30-2019 VENTOLIN HFA 9 0 mcg/actuation inhaler 09/30/2019 Active Aluminum-Magnesium Hydroxide 225-200 mg/5 mL suspension (3 sources) Start: 06-02-2024 take 1 mL by mouth every four hours as needed Aluminum-Magnesium Hydroxide 225-200 mg/5 mL suspension Active 30 mL PO .Q 4 h as needed June 02, 2024 12:00am Complies with drug therapy Start: 06-02-2024 take 1 mL by mouth e very four hours as needed Aluminum-Magnesium Hydroxide 225-200 mg/5 mL suspension Active 30 mL PO .Q 4 h as needed June 02, 2024 12:00am amLODIPine (5 sources) Dihydropyridine Calcium Channel [place] AMLODIPINE BESYLATE (AMLODIPINE ORAL) Take by mouth. Active AMLODIPINE BESYL ATE (AMLODIPINE ORAL) Take by mouth. 0 Active Comment on above: Take by mouth. ANTACID, CALCIUM CARBONATE, ORAL (4 sources) take 500 mg by mouth twice daily ANTACID, CALCIUM CARBONATE, ORAL Take 500 mg by mouth twice daily. Active take 500 mg by mouth twice daily ANTACID, CALCIUM CARBONATE, ORAL Take 500 mg by mouth twice daily. 0 Active Comment on above: Take 500 mg by mouth twice daily. ascorbic acid 500 mg oral tablet (5 sources) Vitamin C take 1 tablet by mouth once daily ascorbic acid, vitamin C, (VITAMIN C) 500 mg tablet Take 500 mg by mouth once daily. Active Comment on above: Take 500 mg by mouth once daily. aspirin 81 mg delayed release oral tablet (20 sources) Platelet Aggregation Inhibitor, Nonsteroidal Anti-inflammatory Drug Start: 03-01-2025 Aspirin (Adult Low Dose Aspirin) 81 mg tablet,delayed release (DR/EC) Active 81 mg PO daily 31 10March 01, 2025 12:00am Complies with drug therapy Start: 11-23-2019 End: 04-25-2022 take 1 tablet by mouth once daily Aspirin 325 MG tablet,delayed release (DR/EC) Discontinued 325 mg PO DAILY November 23, 2019 1:00am April 25, 2022 9:21am heart health Start: 11-07-2006 ASPIRIN 81 MG TAB Take by mouth. 0 11/07/2006 Active Comment on above: Take one(1) tablet d aily. benzoyl peroxide 0.05 mg/mg / clindamycin 0.01 mg/mg topical gel (1 source) Lincosamide Antibacterial Start: Clindamycin-Benzoyl Peroxide 1-5 % gel Active TOPICAL August 18, 2025 12:00am Complies with drug therapy benztropine mesylate 1 mg oral tablet (20 sources) Anticholinergic, Antihistamine Start: take 1 tablet by mouth twice daily Benztropine 1 mg tablet Active 1 mg PO TWICE A DAY August 18, 2025 1:44pm Complies with drug therapy Start: 12-10-2024 End: 08-18-2025 take 1 tablet by mouth three times daily Benztropine 1 mg tablet Discontinued 1 mg PO THREE TIMES A DAY 90 7 December 10, 2024 3:31pm August 18, 2025 1:53pm Start: 02-01-2024 End: 12-10-2024 take 1 tablet by mouth twice daily Benztropine 1 mg tablet Discontinued 1 mg PO TWICE A DAY 60 5 February 01, 2024 1:00am December 10, 2024 3:33pm Start: 04-06-2023 End: 02-01-2024 take 1 tablet by mouth twice daily Benztropine 0.5 mg tablet Discontinued 0.5 mg PO TWICE A DAY April 06, 2023 12:00am February 01, 2024 1:37am Start: 11-23-2019 End: 04-06-2023 take 1 tablet by mouth twice daily Benztropine 2 tablet Discontinued 2 mg PO TWICE A DAY November 23, 2019 1:00am April 06, 2023 8:07pm extrapyramidal symptoms Start: 11-23-2019 take 2 mg by mouth once daily Benztropine Active 2 MG PO DAILY November 23, 2019 1:00am Start: 11-07-2006 take 0.5 mg by mouth twice daily BENZTROPINE 1 MG TAB Take by mouth twice daily. 0.5 MG 0 11/07/2006 Active Comment on above: Take by mouth twice daily. 0.5 MG bisacodyl 10 mg rectal suppository (3 sources) Stimulant Laxative Start: 12-10-2024 Bisacodyl 10 mg suppository Active 10 mg RC daily as needed December 10, 2024 1:00am Complies with drug therapy carbidopa 25 mg / levodopa 100 mg oral tablet (20 sources) Aromatic Amino Acid Decarboxylation Inhibitor, Aromatic Amino Acid Start: 06-02-2024 Carbidopa-Levodopa (Sinemet) 25-100 mg tablet Active 2 {tbl} PO THREE TIMES A DAY June 02, 2024 2:58pm parkinsons Complies with drug therapy Start: 04-06-2023 End: 06-02-2024 Carbidopa-Levodopa (Sinemet) 25-100 mg tablet Discontinued 2 {tbl} PO .QID 240 5 February 01, 2024 1:37am June 02, 2024 3:15pm parkinsons Start: 09-15-2022 End: 04-06-2023 Carbidopa-Levodopa (Sinemet) 25-100 mg Tablet Discontinued 2 {tbl} PO THREE TIMES A DAY September 15, 2022 12:00am April 06, 2023 8:30pm parkinsons Comment on above: Take 2 tablets by [facility] three times daily. carboxymethylcellulose sodium 10 mg/ml ophthalmic solution (3 sources) Start : 06-02 take 1 drop(s) into the eye(s) three times daily Carboxymethylcellulose Sodium (Artificial Tears ([facility])) 1 % drops Active 1 NMA OPHTHALMIC THREE TIMES A DAY June 02, 2024 12:00am Complies with drug therapy cetirizine hydrochloride 10 mg oral capsule (5 sources) Histamine-1 Receptor Antagonist Start : 01-30 take 10 mg by mouth once daily Cetirizine Active 10 MG PO DAILY January 31, 2020 1:00am chlorhexidine gluconate 40 mg/ml medicated liquid soap (6 sources) Start : 12-10 Chlorhexidine Gluconate (Hibiclens) 4 % liquid Active 1 NMA TOPICAL ONCE December 10, 2024 1:00am Every Tu & Sat Complies with drug therapy Start: 12-10-2024 Chlorhexidine Gluconate (Peridex) 0.12 % mouthwash Active 15 mL BUCCAL .Every 12 hours as needed December 10, 2024 1:00am Complies with drug therapy cholecalciferol 0.025 mg oral tablet (10 sources) Vitamin D Start: 11-23-2019 take 1000 [IU] by mouth once daily Cholecalciferol (Vitamin D3) Active 1000 UNIT PO DAILY November 23, 2019 1:00am take 1 capsule by mouth once nannette ly Cholecalciferol, Vitamin D3, 25 mcg (1,000 unit) cap Take 1,000 Units by mouth once daily. Active Comment on above: Take 1,000 Units by mouth once daily. citalopram 10 mg oral tablet (20 sources) Serotonin Reuptake Inhibitor Start: take 1 tablet by mouth once daily Citalopram 10 mg Tablet Active 10 mg PO DAILY September 15, 2022 12:00am depressioin Complies with drug therapy Comment on above: Take 10 mg by mouth once daily. clindamycin 10 mg/ml topical solution (5 sources) Lincosamide Antibacterial Start: CLINDAMYCIN 1 % TOPICAL SOLN Apply to affected area. FOR EXTERNAL USE ONLY. Apply to 0 11/07/2006 Active Comment on above: Apply to affected ar ea(s) twice daily. cyclobenzaprine hydrochloride 10 mg oral tablet (5 sources) Muscle Relaxant Start: take 10 mg by mouth three times daily Cyclobenzaprine Active 10 MG PO THREE TIMES A DAY June 05, 2021 12:00am diclofenac sodium 75 mg delayed release oral tablet (3 sources) Nonsteroidal Anti-inflammatory Drug Start: 024 take 1 tablet by mouth twice daily as needed for headache and pain Diclofenac Sodium 75 mg tablet,delayed release (DR/EC) Active 75 mg PO TWICE A DAY as needed for headache/ muscle and joint pain 60 June 02, 2024 12:00am Complies with drug therapy DOCOSAHEXANOIC ACID/EPA (FISH OIL ORAL) (5 sources) DOCOSAHEXANOIC ACID/EPA (FISH OIL ORAL) Take by mouth. Active DOCOSAHEXANOIC A FLORIAN/EPA (FISH OIL ORAL) Take by mouth. 0 Active Comment on above: Take by mouth. docusate sodium 50 mg / sennosides, prison 8.6 mg oral capsule (3 sources) Start: 10-16-2024 Sennosides-Docusate Sodium (Senna Plus) 8.6-50 mg capsule Active 1 NMA PO TWICE A DAY as needed October 16, 2024 1:00am Complies with drug therapy dorzolamide 20 mg/ml / timolol 5 mg/ml ophthalmic solution (5 sources) Carbonic Anhydrase Inhibitor, beta-Adrenergic [place] Start: 11-07-2006 COSOPT 2 %-0.5 % EYE DROPS Use in eyes. 0 11/07/2006 Active Start: 11-07-2006 take 1 drop(s) into the eye(s) once daily COSOPT 2 %-0.5 % EYE DROPS drops daily 0 11/07/2006 Active Comment on above: drops daily finasteride 5 mg oral tablet (8 sources) 5-alpha Reductase Inhibitor Start: 03-12-20 take 1 tablet by mouth once daily Finasteride 5 mg tablet Active 5 mg PO DAILY December 23, 2023 1:00am Complies with drug therapy Comment on above: Take 5 mg by mouth d aily at bedtime. Fluphenazine Decanoate 25 mg/mL solution (2 sources) Start: 02-01-20 inject 25 mg by intramuscular injection every other week Fluphenazine Decanoate 25 mg/mL solution Active 12.5 mg IM .[id number] 5 0 February 01, 2024 1:42am schizophrenia Start: 02-01-2024 inject 25 mg by intr amuscular injection every other week Fluphenazine Decanoate 25 mg/mL solution Active 12.5 mg IM .[id number] 5 February 01, 2024 1:42am 120 actuat formoterol fumarate 0.005 mg/actuat / mometasone furoate 0.2 mg/actuat metered dose inhaler (1 source) Corticosteroid, beta2-Adrenergic Agonist Start: 06-02-2024 Mometasone-Formoterol (Dulera) 200-5 mcg/actuation HFA aerosol inhaler Active 2 NMA INHALATION TWICE A DAY June 02, 2024 12:00am Complies with drug therapy furosemide 40 mg oral tablet (3 sources) Loop Diuretic Start: 10-21-2024 take 1 tablet by mouth once daily Furosemide 40 mg tablet Active 40 mg PO daily 90 3 October 21, 2024 1:00am Complies with drug therapy gabapentin 100 mg oral capsule (14 sources) Anti-epileptic Agent Start: 12-23-2023 take 2 capsules by mouth twice daily Gabapentin 100 mg capsule Active 200 mg PO TWICE A DAY December 23, 2023 1:00am Complies with drug therapy Start: 12-23-2023 take 200 mg by mouth twice daily Gabapentin Active 200 MG PO TWICE A DAY December 23, 2023 12:00am Start: 11-23-2019 take 300 mg by mouth three times daily Gabapentin Active 300 MG PO THREE TIMES A DAY November 23, 2019 1:00am Comment on above: Take by mouth. GARLIC OIL ORAL (5 sources) GARLIC OIL ORAL Take by mouth. Active GARLIC OIL ORAL Take by mouth. 0 Active Comment on above: Take by mouth. guaiFENesin 20 mg/ml oral solution (3 sources) Start: 06-02-2024 take 200 mg by mouth every four hours as needed Guaifenesin 100 mg/5 mL liquid Active 200 mg PO Q4H as needed June 02, 2024 12:00am Complies with drug therapy ipratropium bromide 0.042 mg/actuat metered dose nasal spray (20 sources) Anticholinergic Start: 08-06-2022 Ipratropium [place] 42 mcg (0.06 %) Hancock,Non-Aerosol Active 1 NMA INTRANASAL TWICE A DAY August 06, 2022 12:00am allergy administer into each nostril Complies with drug therapy Start: 08-06-2022 take 1 spray(s) nasa l route twice daily Ipratropium [place] Active 1 SPRAY INTRANASAL TWICE A DAY August 05, 2022 11:00pm administer into each nostril ipratropium brom paras (ATROVENT) 42 mcg (0.06 %) nasal spray Use 1 Hancock in the nose twice daily. Active Comment on above: Use 1 Hancock in the n ose twice daily. 24 hr isosorbide mononitrate 60 mg extended release oral tablet (4 sources) Nitrate Vasodilator Start: 5 take 1 tablet by mouth once daily, then take 1 tablet by mouth every twenty-four hours Isosorbide Mononitrate 60 mg tablet extended release 24 hr Active 60 mg PO daily 31 10March 01, 2025 12:00am Complies with drug therapy ketoconazole 20 mg/ml topical cream (2 sources) Azole Antifungal Start: 5 Ketoconazole 2 % cream Active NMA TOPICAL August 18, 2025 12:00am Complies with drug therapy ketoconazole (NI ZORAL) 2 % shampoo Apply to affected area two times a week. Every Saturday and Saturday Apply to scalp[ and body topically Active levothyroxine sodium 0.15 mg oral tablet (20 sources) l-Thyroxine Start: 11-23-2019 levothyroxine (SYNTHROID) 150 mcg tablet levothyroxine Levothyroxine Active 150 MCG DAILY November 23, 2019 3:03pm 11-23-2019 [facility] ([id number]) 11/23/2019 Active Start: 11-23-2019 take 1 tablet by juan th once daily Levothyroxine 150 MCG tablet Active 150 ug PO DAILY November 23, 2019 1:00am thyroid Complies with drug therapy Start: 11-07-2006 SYNTHROID 100 MCG TAB Take 150 mcg by mouth. 0 11/07/2006 Active Comment on above: Take 150 mcg by mout h. levothyroxine Levoth yroxine Active 150 MCG DAILY November 23, 2019 3:03pm 11-23-2019 [facility] ([id number]) lisinopril 10 mg oral tablet (20 sources) Angiotensin Converting Enzyme Inhibitor Start: take 1 tablet by mouth once daily Lisinopril 10 mg tablet Active 10 mg PO daily 31 10March 01, 2025 12:00am Complies with drug therapy Start: 11-23-2019 End: 03-01-2025 take 1 tablet by mouth once daily Lisinopril 20 tablet Discontinued 20 mg PO DAILY November 23, 2019 1:00am March 01, 2025 10:10am blood pressure lisinopril 2.5 m g tablet Take 2.5 mg by mouth once daily. 20 MG by mouth daily in the morning Active Comment on above: Take 2.5 mg by mouth once daily. 20 MG by mouth daily in the morning loratadine 10 mg oral tablet (18 sources) Start: 10-16-2024 take 1 tablet by mouth once daily as needed Loratadine (Allergy Relief (Loratadine)) 10 mg tablet Active 10 mg PO daily as needed October 16, 2024 1:00am Complies with drug therapy Start: 11-07-2006 End: 06-02-2024 take 1 tablet by mouth once daily Loratadine (Allergy Relief (Loratadine)) 10 mg tablet Discontinued 10 mg PO DAILY February 26, 2023 12:00am June 02, 2024 3:15pm Comment on above: Take 10 mg by mouth once daily. magnesium hydroxide 80 mg/ml oral suspension (3 sources) Start: 06-02-2024 take 1 mL by mouth once daily as needed Magnesium Hydroxide (Milk Of Magnesia) 400 mg/5 mL suspension Active 30 mL PO DAILY as needed June 02, 2024 12:00am Complies with drug therapy Start: 06-02-2024 take 1 mL by mouth o nce daily as needed Magnesium Hydroxide (Milk Of Magnesia) 400 mg/5 mL suspension Active 30 mL PO DAILY as needed June 02, 2024 12:00am meloxicam 7.5 mg oral tablet (11 sources) Nonsteroidal Anti-inflammatory Drug Start: 08-18-2025 take 1 tablet by mouth twice daily Meloxicam 7.5 mg tablet Active 7.5 mg PO TWICE A DAY August 18, 2025 12:00am Complies with drug therapy Start: 09-07-2019 meloxicam (MOB IC) 15 mg tablet 09/07/2019 Active menthol 100 mg/ml / methyl salicylate 150 mg/ml topical cream (4 sources) methyl salicylat e-menthol (MUSCLE RUB) 15-10 % topical cream Apply to affected area three times daily as needed. Active Comment on above: Apply to affected ar ea three times daily as needed. metoprolol tartrate 25 mg oral tablet (4 sources) beta-Adrenergic [place] Start: 11-26-2024 Metoprolol Tartrate 25 mg tablet Active 12.5 mg PO TWICE A DAY November 26, 2024 1:00am Complies with drug therapy take 12.5 mg by mouth twice victor m y METOPROLOL TARTRATE PO Take 12.5 mg by mouth two times a day. Active mineral oil 1000 mg/ml enema (3 sources) Start: 06-02-2024 Mineral Oil (F leet Mineral Oil) enema Active 118 mL RC DAILY as needed for constipation June 02, 2024 12:00am discard any unused portion Complies with drug therapy Mometasone-Formoterol (Dulera) 200-5 mcg/actuation HFA aerosol inhaler (2 sources) Start: 06-02-2024 Mometasone-For moterol (Dulera) 200-5 mcg/actuation HFA aerosol inhaler Active 2 NMA INHALATION TWICE A DAY June 02, 2024 12:00am Gcmoddsm-Ung-Ir-Lycop en-Lutein (5 sources) Start: 11-23-2019 take 1 tablet by mouth once daily Czgahvet-Acb-Lo-Lycopen-L utein Active 1 TABLET PO DAILY November 23, 2019 4:35pm Start: 11-23-2019 take 1 tablet by juan th once daily Onwqywin-Vuj-Bb-Lycopen-Lutein Active 1 TABLET PO DAILY November 23, 2019 1:00am MULTIVITAMIN W-MINERALS/LUTE IN (CENTRUM SILVER ORAL) (5 sources) take 1 tablet by mouth once daily MULTIVITAMIN W-MINERALS/LUTEIN (CENTRUM SILVER ORAL) Take 1 tablet by mouth once daily. Active MULTIVITAMIN W-M INERALS/LUTEIN (CENTRUM SILVER ORAL) Take by mouth. Active MULTIVITAMIN W-M INERALS/LUTEIN (CENTRUM SILVER ORAL) Take by mouth. 0 Active Comment on above: Take by mouth. Multivitamin With Minerals (Multiple Vitamin-Minerals) tablet (3 sources) Start: 06-02-2024 Multivitamin With Minerals (Multiple Vitamin-Minerals) tablet Active 1 {tbl} PO DAILY June 02, 2024 12:00am Complies with drug therapy Start: 06-02-2024 Multivitamin W ith Minerals (Multiple Vitamin-Minerals) tablet Active 1 {tbl} PO DAILY June 02, 2024 12:00am mupirocin 0.02 mg/mg topical ointment (11 sources) RNA Synthetase Inhibitor Antibacterial Start: 11-23-2019 Mupirocin Active 1 APPLICATIO TOPICAL TWICE A DAY November 23, 2019 1:00am Start: 06-09-2019 mupirocin ([place] TROBAN) 2 % ointment Indications: Burn Apply 1 application to affected area three times daily. 30 g 06/09/2019 Active Comment on above: Apply 1 application to affected area three times daily. naproxen 500 mg oral tablet (5 sources) Nonsteroidal Anti-inflammatory Drug take 1 tablet by mouth twice daily at mealtime naproxen 500 mg tablet Take 500 mg by mouth two times a day with meals. Active Comment on above: Take 500 mg by mouth twice daily with meals. nitroglycerin 0.4 mg sublingual tablet (3 sources) Nitrate Vasodilator Start: 10-16-20 Nitroglycerin 0.4 mg tablet, sublingual Active 0.4 mg SL every 5 to 15 minutes as needed October 16, 2024 1:00am do not exceed 3 doses per episode Complies with drug therapy nystatin 100 unt/mg topical powder (7 sources) Polyene Antifungal Start: 07-06-20 End: 08-05-20 nystatin (MYCOSTATIN) powder Indications: Sujey rash of groin Apply 1 application to affected area two times a day. 60 g 2 07/06/2025 08/05/2025 Active Start: 12-10-2024 nystatin Activ e TOPICAL .QD December 10, 2024 4:09pm Complies with drug therapy Start: 12-10-2024 nystatin Activ e TOPICAL .QD December 10, 2024 4:09pm Start: 10-16-2024 End: 12-10-2024 nystatin Discontinued TOPICA L October 16, 2024 1:00am December 10, 2024 4:20pm omeprazole 20 mg delayed release oral capsule (11 sources) Proton Pump Inhibitor Start: 08-18-2025 take 1 capsule by mouth once daily Omeprazole 20 mg capsule,delayed release(DR/EC) Active 20 mg PO daily August 18, 2025 12:00am Complies with drug therapy Start: 11-23-2019 take 20 mg by mouth once daily Omeprazole Active 20 MG PO DAILY November 23, 2019 1:00am Comment on above: Take 20 mg by mouth once daily. OXYGEN, HOME THERAPY, (4 sources) OXYGEN, HOME THE RAPY, Inhale 2 L/min as instructed as directed. 2-5 L/M Active OXYGEN, HOME THE RAPY, Inhale 2 L/min as instructed as directed. 2-5 L/M 0 Active Comment on above: Inhale 2 L/min as in structed as directed. 2-5 L/M potassium chloride 20 meq extended release oral tablet (3 sources) Start: 4 take 1 tablet by mouth once daily Potassium Chloride 20 mEq tablet extended release Active 20 meq PO daily 90 3 October 21, 2024 1:00am Complies with drug therapy pravastatin sodium 40 mg oral tablet (20 sources) HMG-CoA Reductase Inhibitor Start: 2 take 1 tablet by mouth at bedtime Pravastatin 40 mg Tablet Active 40 mg PO AT BEDTIME August 06, 2022 12:00am cholesterol Complies with drug therapy Comment on above: Take 40 mg by mouth daily at bedtime. rivastigmine 6 mg oral capsule (20 sources) Start: take 1 capsule by mouth twice daily Rivastigmine Tartrate 6 mg capsule Active 6 mg PO TWICE A DAY 60 7 December 10, 2024 1:00am Complies with drug therapy Start: 04-06-2023 End: 04-06-2023 take 4.5 mg by mouth once daily in the morning Rivastigmine Tartrate Discontinued 4.5 MG PO TWICE A DAY April 06, 2023 7:07pm April 06, 2023 7:10pm Give 4.5 mg by mouth every morning and bedtime for Parkinsons Start: 04-06-2023 End: 02-03-2024 take 4.5 mg by mouth twice daily Rivastigmine Tartrate 3 mg capsule Discontinued 4.5 mg PO TWICE A DAY 60 4 February 01, 2024 1:39am February 03, 2024 5:29pm Start: 04-06-2023 take 4.5 mg by mouth twice daily Rivastigmine Tartrate Active 4.5 MG PO TWICE A DAY April 05, 2023 11:00pm Start: 03-20-2023 End: 12-10-2024 take 1 capsule by mouth twice daily Rivastigmine Tartrate 4.5 mg capsule Discontinued 4.5 mg PO TWICE A DAY 60 February 03, 2024 1:00am December 10, 2024 3:31pm Start: 02-26-2023 End: 04-06-2023 take 4.5 mg by mouth once daily in the morning Rivastigmine Tartrate 3 mg capsule Discontinued 4.5 mg PO TWICE A DAY April 06, 2023 8:07pm April 06, 2023 8:10pm parkinsons Give 4.5 mg by mouth every morning and bedtime for Parkinsons Start: 09-15-2022 End: 02-26-2023 take 1 capsule by mouth twice daily Rivastigmine Tartrate 3 mg Capsule Discontinued 3 mg PO TWICE A DAY September 15, 2022 12:00am February 26, 2023 9:31am parkinsons Comment on above: Take 4.5 mg by mouth twice daily. simvastatin 20 mg oral tablet (10 sources) HMG-CoA Reductase Inhibitor Start: 9 take 20 mg by mouth once daily Simvastatin Active 20 MG PO DAILY November 23, 2019 1:00am Comment on above: Take 20 mg by mouth daily at bedtime. tamsulosin hydrochloride 0.4 mg oral capsule (20 sources) alpha-Adrenergic Haydee Start: take 2 capsules by mouth at bedtime Tamsulosin (Flomax) 0.4 mg capsule Active 0.8 mg PO AT BEDTIME December 23, 2023 2:57pm Complies with drug therapy Start: 03-13-2023 take 0.8 mg by mouth once daily at bedtime tamsulosin (FLOMAX) 0.4 mg Take 0.8 mg by mouth daily at bedtime. 03/13/2023 Active Start: 09-21-2022 End: 12-23-2023 take 1 capsule by mouth at bedtime Tamsulosin (Flomax) 0.4 mg capsule Discontinued 0.4 mg PO AT BEDTIME 30 2 September 21, 2022 12:00am December 23, 2023 3:03pm Comment on above: Take 0.8 mg by mouth daily at bedtime. timolol 0.005 mg/mg ophthalmic gel (20 sources) beta-Adrenergic Haydee Start: 09-15-2022 Timolol Maleate 0.5 % Gel Forming Solution Active 1 NMA EACH EYE AT BEDTIME September 15, 2022 12:00am Check with primary doctor Complies with drug therapy Start: 10-05-2019 apply 1 drop(s) into the eye(s) once daily at bedtime timolol (TIMOPTIC-XE) 0.5 % ophthalmic gel-forming Use 1 Drop in both eyes daily at bedtime. 10/05/2019 Active Start: 10-05-2019 apply 1 drop(s) into the eye(s) once daily at bedtime timolol (TIMOPTIC-XE) 0.5 % ophthalmic gel-forming Use 1 Drop in both eyes daily at bedtime. 0 10/05/2019 Active Comment on above: Use 1 Drop in both e yes daily at bedtime. vitamin b12 0.5 mg oral tablet (17 sources) Vitamin B12 Start: 12-10-2024 take 2 tablets by mouth every other day Cyanocobalamin (Vitamin B-12) 500 mcg tablet Active 1000 ug PO .QOD December 10, 2024 4:04pm Complies with drug therapy Start: 12-10-2024 take 2 tablets by mo [facility] every other day Cyanocobalamin (Vitamin B-12) 500 mcg tablet Active 1000 ug PO .QOD December 10, 2024 4:04pm Start: 02-26-2023 End: 12-10-2024 take 1 tablet by mouth once daily Cyanocobalamin (Vitamin B-12) 500 mcg tablet Discontinued 500 ug PO DAILY February 26, 2023 12:00am December 10, 2024 4:20pm Comment on above: [facility] Completed/Discontinued Medications Medication Drug Class(es) Dates Sig (Normalized) Sig (Original) Budesonide-Formote rol (20 sources) Corticosteroid, beta2-Adrenergic Agonist Start: 08-06-2022 End: 06-02-2024 Budesonide-Formotero l (Symbicort) 160-4.5 mcg/actuation Hfa Aerosol Inhaler Discontinued 2 NMA INHALATION TWICE A DAY August 06, 2022 12:00am June 02, 2024 3:14pm breathing Start: 08-06-2022 End: 06-02-2024 Budesonide-Formoterol (Symbi khang) 160-4.5 mcg/actuation Hfa Aerosol Inhaler Discontinued 2 NMA INHALATION TWICE A DAY August 06, 2022 12:00am June 02, 2024 3:14pm Start: 08-06-2022 take 1 puff(s) by in halation twice daily Budesonide-Formoterol (Symbicort) 160-4.5 mcg/actuation Hfa Aerosol Inhaler Active 2 PUFF INHALATION TWICE A DAY August 05, 2022 11:00pm Start: 08-06-2022 take 1 puff(s) by in halation twice daily Budesonide-Formoterol (Symbicort) 160-4.5 mcg/actuation Hfa Aerosol Inhaler Active 2 PUFF INHALATION TWICE A DAY August 06, 2022 12:00am Start: 11-23-2019 take 1 puff(s) by in halation twice daily Budesonide-Formoterol Active 1 PUFF IH TWICE A DAY November 23, 2019 1:00am take 2 puff(s) by in halation twice daily budesonide-formoterol (SYMBICORT) 160-4.5 mcg/actuation inhaler Inhale 2 Puffs as instructed twice daily. Active take 2 puff(s) by in halation twice daily budesonide-formoterol (SYMBICORT) 160-4.5 mcg/actuation inhaler Inhale 2 Puffs as instructed twice daily. 0 Active Comment on above: Inhale 2 Puffs as in structed twice daily. calcium carbonate 500 mg chewable tablet (18 sources) Start: 08-06-2022 End: 12-10-2024 Calcium Carbonate (Leandro-Gest Antacid) 200 mg calcium (500 mg) Tablet,Chewable Discontinued 500 mg PO TWICE A DAY August 06, 2022 12:00am December 10, 2024 4:22pm stomach Start: 08-06-2022 Calcium Carbon ate (Leandro-Gest Antacid) 200 mg calcium (500 mg) Tablet,Chewable Active 150 MG PO TWICE A DAY August 06, 2022 12:00am carboxymethylcellulose sodium 5 mg/ml / glycerin 10 mg/ml / polysorbate 80 5 mg/ml ophthalmic solution (20 sources) Non-Standardized Chemical Allergen Start: 08-06-2022 End: 06-02-2024 Ychficlljwxhmcj-Tuysfwg-Mica 80 (Refresh Digital) 0.5-1-0.5 % Drops Discontinued 1 NMA EACH EYE THREE TIMES A DAY August 06, 2022 12:00am June 02, 2024 3:14pm eye Start: 08-06-2022 Carboxymethylc u-Gresxdv-Vwyt06 (Refresh Digital) 0.5-1-0.5 % Drops Active 1 DRP EACH EYE THREE TIMES A DAY August 05, 2022 11:00pm Start: 08-06-2022 Carboxymethylc r-Sojulse-Pdbi95 (Refresh Digital) 0.5-1-0.5 % Drops Active 1 DRP EACH EYE AT BEDTIME August 06, 2022 12:00am Comment on above: Use in eyes three ti mes daily. One drop in both eyes three times daily docusate sodium 100 mg oral capsule (20 sources) Start: End: 2 take 2 capsules by mouth once daily for constipation Docusate Sodium 100 mg capsule Discontinued 0 .ROUTE .COMPLEX 60 0 May 25, 2022 1:12pm September 15, 2022 3:23pm TAKE 2 CAPSULES BY MOUTH DAILY FOR CONSTIPATION Start: 11-23-2019 End: 09-15-2022 take 2 capsules by mouth once daily for constipation Docusate Sodium Discontinued 0 .ROUTE .COMPLEX 60 May 25, 2022 12:12pm September 15, 2022 2:23pm TAKE 2 CAPSULES BY MOUTH DAILY FOR CONSTIPATION Start: 11-07-2006 take 4 capsules by m outh once daily in the morning COLACE 50 MG CAP Take by mouth. 200 mg by mouth every morning 0 11/07/2006 Active Comment on above: Take by mouth. 200 m g by mouth every morning doxycycline hyclate 50 mg oral capsule (20 sources) Tetracycline-clas s Drug Start: 09-15-2022 End: 12-23-2023 take 1 capsule by mouth once daily Doxycycline Hyclate 50 mg capsule Discontinued 50 mg PO DAILY September 15, 2022 12:00am December 23, 2023 3:07pm Check with primary doctor Start: 11-23-2019 take 100 mg by mouth twice daily Doxycycline Monohydrate Active 100 MG PO TWICE A DAY November 23, 2019 1:00am fluPHENAZine decanoate 25 mg/ml injectable solution (20 sources) Phenothiazine Start: 09-18-2022 End: 02-01-2024 inject 25 mg by intramuscular injection every other week Fluphenazine Decanoate 25 mg/mL solution Discontinued 12.5 mg IM .[id number] February 01, 2024 1:40am February 01, 2024 1:43am schizophrenia Start: 09-18-2022 inject 25 mg by intr amuscular injection every other week Fluphenazine Decanoate Active 25 MG IM .[id number] September 17, 2022 11:00pm fluPHENAZine Dec anoate 25 mg/mL syrg by INJECTION(UNSPECIFIED PARENTERAL ROUTES) route. Active fluPHENAZine Dec anoate 25 mg/mL syrg by INJECTION(UNSPECIFIED PARENTERAL ROUTES) route. 0 Active Comment on above: by INJECTION(UNSPECI FIED PARENTERAL ROUTES) route. Inject 25 mg intramu scularly every 2 weeks. flurbiprofen 100 mg oral tablet (7 sources) Nonsteroidal Anti-inflammatory Drug Start: 2023 End: 2023 take 1 tablet by mouth three times daily as needed for pain Flurbiprofen 100 mg tablet Discontinued 100 mg PO THREE TIMES A DAY as needed for headaches or musculoskeletal pain 90 4 February 01, 2024 1:38am June 02, 2024 3:15pm Lanolin Vbwsiib-Vu-N.Pet-Ce res (Minerin Creme) Cream (17 sources) Start: 2021 End: 2024 Lanolin Aupffkr-Uu-W.Pet-Cere s (Minerin Creme) Cream Discontinued 1 NMA TOPICAL DAILY September 15, 2022 12:00am December 10, 2024 4:23pm Check with primary doctor Start: 09-15-2022 End: 12-10-2024 Lanolin Wtgceio-Pd-Y.Pet-Cer es (Minerin Creme) Cream Discontinued 1 NMA TOPICAL DAILY September 15, 2022 12:00am December 10, 2024 4:23pm Start: 09-15-2022 Lanolin Alcoho l-Mo-W.Pet-Blanchard (Minerin Creme) Cream Active 1 APPLIC TOPICAL DAILY September 14, 2022 11:00pm Start: 09-15-2022 Lanolin Alcoho l-Mo-W.Pet-[place]ard (Minerin Creme) Cream Active 1 APPLIC TOPICAL DAILY September 15, 2022 12:00am lidocaine 40 mg/ml topical cream (4 sources) Antiarrhythmic, Amide Local Anesthetic Start: 12-23-2023 End: 06-02-2024 Lidocaine 4 % cream Discontinued 1 NMA TOPICAL DAILY December 23, 2023 1:00am June 02, 2024 3:14pm LORazepam 1 mg oral tablet (20 sources) Benzodiazepine Start: 11-07-2006 End: 02-26-2023 Lorazepam 0.5 tablet Discontinued 0.5 mg PO THSA November 23, 2019 1:00am February 26, 2023 9:26am anxiety Start: 11-07-2006 ATIVAN 0.5 MG TAB Take one(1) tablet two(2) times daily. 0 11/07/2006 Active Start: 11-07-2006 End: 02-26-2023 take 1 tablet by mouth twice daily Lorazepam 1 tablet Discontinued 1 mg PO TWICE A DAY November 23, 2019 1:00am February 26, 2023 9:27am anxiety Start: 11-07-2006 ATIVAN 1 MG TA B Take one(1) tablet three times daily. 0 11/07/2006 Active Comment on above: Take one(1) tablet t wo(2) times daily. Take one(1) tablet t hree times daily. pantoprazole 40 mg delayed release oral tablet (20 sources) Proton Pump Inhibitor Start: End: take 1 tablet by mouth once daily Pantoprazole 40 mg tablet,delayed release (DR/EC) Discontinued 40 mg PO DAILY December 23, 2023 2:53pm August 18, 2025 1:52pm gerd Comment on above: Take 40 mg by mouth once daily. polyethylene glycol 3350 66208 mg powder for oral solution (20 sources) Osmotic Laxative Start: End: Polyethylene Glycol 3350 (Miralax) 17 gram/dose powder Discontinued 17 g PO DAILY 510 3 April 25, 2022 3:51pm June 02, 2024 3:15pm Start: 04-25-2022 End: 04-25-2022 Polyethylene Glycol 3350 (Mi ralax) 17 gram/dose powder Discontinued 4 g PO DAILY 510 3 April 25, 2022 12:00am April 25, 2022 3:51pm Comment on above: Take 17 g by mouth o nce daily. Dissolve dose in 4 - 8 ounces of liquid and take as directed. Polyethylene Glycol 3350 (Miralax) 17 gram/dose powder (20 sources) Start: 04-25-2022 End: 04-25-2022 Polyethylene Glycol 3350 (Miralax) 17 gram/dose powder Discontinued 4 g PO DAILY 510 3 April 25, 2022 12:00am April 25, 2022 3:51pm Start: 04-25-2022 End: 04-25-2022 Polyethylene Glycol 3350 (Mi ralax) 17 gram/dose powder Discontinued 4 g PO DAILY 510 April 25, 2022 12:00am April 25, 2022 3:51pm Start: 04-25-2022 End: 04-25-2022 Polyethylene Glycol 3350 (Mi ralax) 17 gram/dose powder Discontinued 4 GM PO DAILY 510 April 24, 2022 11:00pm April 25, 2022 2:51pm Start: 04-25-2022 End: 04-25-2022 Polyethylene Glycol 3350 (Mi ralax) 17 gram/dose powder Discontinued 4 GM PO DAILY 510 April 25, 2022 12:00am April 25, 2022 3:51pm sodium phosphate, dibasic 35.5 mg/ml / sodium phosphate, monobasic 96.4 mg/ml enema (3 sources) Start: 06-02-2024 End: 12-10-2024 Sodium Phosphates (Fleet Enema Extra) 19-7 gram/197 mL enema Discontinued 118 mL RC ONCE June 02, 2024 12:00am December 10, 2024 4:23pm terbinafine (20 sources) Allylamine Antifungal Start: 09-15-2022 End: 06-02-2024 Terbinafine 1 % Gel Discontinued 1 NMA TOPICAL TWICE A DAY September 15, 2022 12:00am June 02, 2024 3:15pm Check with primary doctor apply to both feet. Start: 09-15-2022 End: 06-02-2024 Terbinafine 1 % Gel Disconti nued 1 NMA TOPICAL TWICE A DAY September 15, 2022 12:00am June 02, 2024 3:15pm apply to both feet. Start: 09-15-2022 Terbinafine Ac tive 1 EACH TOPICAL TWICE A DAY September 14, 2022 11:00pm apply to both feet. Start: 09-15-2022 Terbinafine Ac tive 1 EACH TOPICAL TWICE A DAY September 15, 2022 12:00am apply to both feet. Start: 08-06-2022 take 250 mg by mouth once daily Terbinafine Hcl Active 250 MG PO DAILY August 05, 2022 11:00pm Terbinafine Hcl 125 mg Granules In Packet (3 sources) Start: 08-06-2022 End: 06-02-2024 take 250 mg by mouth once daily Terbinafine Hcl 125 mg Granules In Packet Discontinued 250 mg PO DAILY August 06, 2022 12:00am June 02, 2024 3:15pm Check with primary doctor Start: 08-06-2022 End: 06-02-2024 take 250 mg by mouth once daily Terbinafine Hcl 125 mg Granules In Packet Discontinued 250 mg PO DAILY August 06, 2022 12:00am June 02, 2024 3:15pm traZODone hydrochloride 50 mg oral tablet (20 sources) Serotonin Reuptake Inhibitor Start: 12-10-2024 End: 08-18-2025 Trazodone 50 mg tablet Discontinued 12.5 mg PO AT BEDTIME December 10, 2024 4:23pm August 18, 2025 1:53pm Start: 06-02-2024 End: 12-10-2024 Trazodone 50 mg tablet Disco ntinued 25 mg PO AT BEDTIME June 02, 2024 12:00am December 10, 2024 4:24pm Start: 12-23-2023 End: 06-02-2024 Trazodone 100 mg tablet Disc ontinued 50 mg PO AT BEDTIME December 23, 2023 2:55pm June 02, 2024 3:12pm depression Start: 12-23-2023 take 50 mg by mouth at bedtime Trazodone Active 50 MG PO AT BEDTIME December 23, 2023 1:55pm Start: 11-23-2019 End: 12-23-2023 take 1 tablet by mouth at bedtime Trazodone 100 tablet Discontinued 100 mg PO AT BEDTIME November 23, 2019 1:00am December 23, 2023 3:03pm depression Comment on above: Take 100 mg by mouth daily at bedtime. 50 MG by mouth at bedtime Problems Active Problems Problem Classification Problem Date Documented Date Episodic/Chronic Administrative/social admission (3 sources) Need for personal care assistance; Translations: [Need for assistance with personal care] 10-16-2024 Episodic Chronic obstructive pulmonary disease and bronchiectasis (4 sources) Chronic obstructive lung disease; Translations: [Chronic obstructive pulmonary disease, unspecified] Onset: 05-14-2025 10-16-2024 Chronic Coronary atherosclerosis and other heart disease (8 sources) Coronary arteriosclerosis; Translations: [Atherosclerotic heart disease of [place] coronary artery without angina pectoris] Onset: 03-11-2025 10-21-2024 Chronic Delirium, dementia, and amnestic and other cognitive disorders (14 sources) Dementia; Translations: [Unspecified dementia without behavioral disturbance] Onset: 08-04-2025 06-26-2023 Chronic Diseases of white blood cells (20 sources) Leukocytosis; Translations: [Elevated white blood cell count, unspecified] Chronic Disorders of lipid metabolism (11 sources) Dyslipidemia; Translations: [Hyperlipidemia, unspecified] Onset: 03-11-2025 10-21-2024 Chronic E Codes: Fall (20 sources) Fall on same level from slipping; Translations: [Fall on same level from slipping, tripping and stumbling without subsequent striking against object, initial encounter] 06-24-2022 Episodic Esophageal disorders (3 sources) Gastroesophageal reflux disease; Translations: [Gastro-esophageal reflux disease without esophagitis] 10-16-2024 Chronic Essential hypertension (8 sources) Hypertensive disorder; Translations: [Essential (primary) hypertension] Onset: 03-11-2025 10-16-2024 Chronic Fracture of lower limb (20 sources) Closed fracture of phalanx of foot; Translations: [Unspecified fracture of unspecified toe(s), initial encounter for closed fracture] 04-14-2021 Episodic Headache; including migraine (11 sources) Tension-type headache; Translations: [Tension-type headache, unspecified, not intractable] Onset: 08-04-2025 06-26-2023 Chronic Hemorrhoids (20 sources) Hemorrhoids; Translations: [Unspecified hemorrhoids] Episodic Hyperplasia of prostate (3 sources) Benign prostatic hyperplasia; Translations: [Benign prostatic hyperplasia without lower urinary tract symptoms] Onset: 07-06-2025 Chronic Mycoses (2 sources) Disorder of inguinal region; Translations: [Other sites of candidiasis] Onset: 07-06-2025 07-06-2025 Episodic Nonspecific chest pain (20 sources) Chest pain on exertion; Translations: [Chest pain, unspecified] Onset: 05-04-2025 11-23-2019 Episodic Nutritional deficiencies (7 sources) Vitamin D deficiency; Translations: [Vitamin D deficiency, unspecified] 04-06-2023 Chronic Other and unspecified benign neoplasm (7 sources) Neoplasm of meninges; Translations: [Benign neoplasm of meninges, unspecified] 10-21-2024 Chronic Other and unspecified benign neoplasm (1 source) Benign neoplasm of meninges, unspecified; Translations: [Benign neoplasm of meninges, unspecified] Onset: 08-04-2025 Chronic Other connective tissue disease (18 sources) Recurrent falls ; Translations: [Repeated falls] 08-15-2022 Episodic Other connective tissue disease (3 sources) Muscle weakness; Translations: [Muscle weakness (generalized)] 10-16-2024 Episodic Other connective tissue disease (1 source) Myalgia, other site; Translations: [Myalgia, other site] Onset: 08-04-2025 Episodic Other connective tissue disease (2 sources) Musculoskeletal pain; Translations: [Myalgia, other site] 06-16-2025 Episodic Other hereditary and degenerative nervous system conditions (9 sources) Extrapyramidal disease; Translations: [Extrapyramidal and movement disorder, unspecified] 04-06-2023 Chronic Other hereditary and degenerative nervous system conditions (3 sources) Extrapyramidal and movement disorder, unspecified; Translations: [Unspecified extrapyramidal disease and abnormal movement disorder] Onset: 08-04-2025 06-25-2023 Chronic Other hereditary and degenerative nervous system conditions (3 sources) Idiopathic peripheral autonomic neuropathy; Translations: [Other idiopathic peripheral autonomic neuropathy] 10-16-2024 Chronic Other injuries and conditions due to external causes (18 sources) Injury of head; Translations: [Unspecified injury of head, initial encounter] 08-15-2022 Episodic Other lower respiratory disease (3 sources) Dyspnea on exertion; Translations: [Other forms of dyspnea] 10-21-2024 Episodic Other lower respiratory disease (3 sources) Dyspnea; Translations: [Shortness of breath] 10-16-2024 Episodic Other male genital disorders (1 source) Pain in testicle; Translations: [Testicular pain, unspecified] 07-06-2025 Episodic Other male genital disorders (1 source) Testicular pain, unspecified; Translations: [Pain in testicle, unspecified laterality] Onset: 07-06-2025 Episodic Other nervous system disorders (17 sources) Metabolic encephalopathy; Translations: [Metabolic encephalopathy] 09-29-2022 Chronic Other nervous system disorders (5 sources) Metabolic encephalopathy; Translations: [Metabolic encephalopathy] Chronic Other nervous system disorders (17 sources) H/O: brain disorder; Translations: [Personal history of other diseases of the nervous system and sense organs] 09-29-2022 Episodic Other nervous system disorders (2 sources) Personal history of other diseases of the nervous system and sense organs; Translations: [Personal history of other disorders of nervous system and sense organs] Episodic Other nervous system disorders (3 sources) Finding related to ability to move; Translations: [Other abnormalities of gait and mobility] 10-16-2024 Episodic Other nervous system disorders (3 sources) Incoordination; Translations: [Unspecified lack of coordination] 10-16-2024 Episodic Other non-traumatic joint disorders (3 sources) Hip pain; Translations: [Pain in left hip] 06-02-2024 Episodic Other screening for suspected conditions (not mental disorders or infectious disease) (2 sources) Patient encounter status; Translations: [Encounter for screening for other disorder] Onset: 07-06-2025 07-06-2025 Episodic Other skin disorders (1 source) Rash of groin; Translations: [Rash and other nonspecific skin eruption] 07-06-2025 Episodic Other skin disorders (1 source) Rash and other nonspecific skin eruption; Translations: [Rash of groin] Onset: 07-06-2025 Episodic Other upper respiratory infections (20 sources) Acute upper respiratory infection; Translations: [Acute upper respiratory infection, unspecified] 02-23-2019 Episodic Parkinson`s disease (3 sources) Parkinson's disease; Translations: [Paralysis agitans] 02-26-2023 Chronic Residual codes; unclassified (17 sources) Altered mental status; Translations: [Altered mental status, unspecified] 09-29-2022 Episodic Residual codes; unclassified (5 sources) Altered mental status, unspecified; Translations: [Altered mental status] Episodic Schizophrenia and other psychotic disorders (11 sources) Schizophrenia; Translations: [Schizophrenia, unspecified] Onset: 03-11-2025 04-06-2023 Chronic Superficial injury; contusion (20 sources) Contusion of hand; Translations: [Contusion of right hand, initial encounter] 08-15-2022 Episodic Thyroid disorders (4 sources) Hypothyroidism; Translations: [Hypothyroidism, unspecified] Onset: 05-14-2025 10-16-2024 Chronic Unclassified (1 source) Dementia in other diseases classified elsewhere, mild, without behavioral disturbance, psychotic disturbance, mood disturbance, and anxiety; Translations: [Dementia in other diseases classified elsewhere, mild, without behavioral disturbance, psychotic disturbance, mood disturbance, and anxiety] Onset: 08-04-2025 Unclassified (1 source) Parkinsonism, unspecified; Translations: [Parkinsonism, unspecified] Onset: 03-08-2025 Urinary tract infections (20 sources) Acute urinary tract infection; Translations: [Urinary tract infection, site not specified] Episodic Past or Other Problems Problem Classification Problem Date Documented Da te Episodic/Chronic Deficiency and other anemia (2 sources) Other vitamin B12 deficiency anemias; Translations: [Other vitamin B12 deficiency anemias] Onset: 04-01-2025 Episodic Deficiency and other anemia (1 source) Anemia, unspecified; Translations: [Anemia, unspecified] Onset: 10-02-2024 Episodic Malaise and fatigue (1 source) Other fatigue; Translations: [Other fatigue] Onset: 10-02-2024 Episodic Other aftercare (1 source) Other salvage determiner (current) drug therapy; Translations: [Other salvage determiner (current) drug therapy] Onset: 12-25-2024 Episodic Other lower respiratory disease (2 sources) Other forms of dyspnea; Translations: [Other forms of dyspnea] Onset: 10-21-2024 Episodic Holly-; endo-; and myocarditis; cardiomyopathy (except that caused by tuberculosis or sexually transmitted disease) (1 source) Pericarditis in diseases classified elsewhere; Translations: [Pericarditis in diseases classified elsewhere] Onset: 10-02-2024 Episodic Residual codes; unclassified (1 source) Edema, unspecified; Translations: [Edema, unspecified] Onset: 10-02-2024 Episodic Unclassified (20 sources) Unknown past medical history 08-06-2022 Results Test Name Value Interpretation Reference Range Facility Calculated very low density lipoprotein (VLDL) cholesterol measurementOrdered By: Nadia Fisher on 08-03-2025 Calculated very low density lipoprotein (VLDL) cholesterol measurement 31 mg/dL 5-40 [facility] LDL calc ser/plasOrdered By: Nadia Fisher on 08-03-2025 Cholesterol in LDL [Mass/Vol] 79 mg/dL [facility] Comment on above: Eswzfcuodb=741-417 m g/dL & Higher Uxpj=813 mg/dL or greaterFriedwald Equation for LDL-C Lipid Profileon 08-03-2025 CHOL:HDL 3.61 Normal [facility] Comment on above: Order Comment: [id number] Performed By: #### L 500.2500 #### [facility] [address], [place], [id number] (570) Cholesterol [Mass/Vol] 152 mg/dL Normal <=200 [facility] Comment on above: Order Comment: 309-1 Result Comment: Chol esterol level, Desirable <200 mg/dL Borderline high cholesterol 200-239 mg/dL High cholesterol >=240 mg/dL Recommendations of the NCEP Adult Treatment Panel for the following risk-cutoff thresholds for the [place] population. Performed By: #### L 500.2500 #### [facility] [address], [place], [id number] (318) Cholesterol in HDL [Mass/Vol] 42 mg/dL Normal [facility] Comment on above: Order Comment: 309-1 Result Comment: Nery onal Cholesterol Education Program (NCEP) guidelines: <40 mg/dL: Low HDL-cholesterol (major risk factor for CHD) >= 60 mg/dL: High HDL-cholesterol (negative risk factor for CHD) HDL-cholesterol is affected by a number of factors, e.g. smoking, exercise, hormones, sex and age. Performed By: #### L 500.2500 #### [facility] [address] [place], [place], [id number] (211) Cholesterol in LDL [Mass/Vol] 79 mg/dL Normal [facility] Comment on above: Order Comment: 309-1 Result Comment: Bord mhqlki=088-526 mg/dL Higher Huud=535 mg/dL or greater Friedwald Equation for LDL-C Performed By: #### L 500.2500 #### [facility] [address] [place], [place], [id number] (614) Cholesterol in VLDL [Mass/Vol] 31 mg/dL Normal 5-40 [facility] Comment on above: Order Comment: 309-1 Performed By: #### L 500.2500 #### [facility] [address] [place], [place], [phone] (797) Triglyceride [Mass/Vol] 153 mg/dL Normal [facility] Comment on above: Order Comment: 309-1 Result Comment: The drugs N-Acetylcysteine and Metamizole may falsely depress this assay. Normal range: <150 mg/dL Borderline High: 150-199 mg/dL High: 200-499 mg/dL Very High: >500 mg/dL Performed By: #### L 500.2500 #### [facility] [address] [place], [place], [id number] ([phone]) Screening total cholesterol/ high density lipoprotein (HDL) cholesterol ratioOrdered By: Nadia Fisher on 08-03-2025 Cholesterol.total/Choles terol in HDL [Mass ratio] 3.61 {ratio} [facility] Serum or plasma cholesterol in HDL measurement (mass/volume)Ordered By: Nadia Fisher on 08-03-2025 Cholesterol in HDL [Mass/Vol] 42 mg/dL >40 [facility] Comment on above: National Cholesterol Education Program (NCEP) guidelines:<40 mg/dL: Low HDL-cholesterol (major risk factor for CHD)>= 60 mg/dL: High HDL-cholesterol (negative risk factor for CHD)HDL-cholesterol is affected by a number of factors, e.g. smoking, exercise, hormones, sex and age. Serum or plasma cholesterol measurement (mass/volume)Ordered By: Nadia Fisher on 08-03-2025 Cholesterol [Mass/Vol] 152 mg/dL <201 [facility] Comment on above: Cholesterol level, D esirable <200 mg/dLBorderline high cholesterol 200-239 mg/dLHigh cholesterol >=240 mg/dLRecommendations of the NCEP Adult Treatment Panel for the following risk-cutoff thresholds for the [place] population. Triglycerides measurementOrd ered By: Nadia Fisher on 08-03-2025 Triglyceride [Mass/Vol] 153 mg/dL <199 [facility] Comment on above: The drugs N-Acetylcy steine and Metamizole may falsely depress this assay. Normal range: <150 mg/dLBorderline High: 150-199 mg/dLHigh: 200-499 mg/dLVery High: >500 mg/dL CNOVon 07-06-2025 CNOV Office Visit (UROLWS) ERNST MILES ([id number]) 1955 M Date Time Provider Department 07/06/25 9:30 AM JOHNATHAN KELLER During your visit today, we recorded the following information about you: Vivienne Gonzáles LPN 07/06/2025 10:11 AM Signed Verified name and date of . CC Post Void Residual HPI: Ernst Miles is a 69 year old male. The patient is here now for an appointment with MARIA DOLORES Christine, MS, PA-ZINA. Procedure: Explained procedure to patient and verbalizes understanding. Performed a PVR. Patient attempted to urinate but unable to provide specimen. States he urinatedright before appointment. Results of scan: 0 mL The patient tolerated the procedure well. Plan: Appointment with Johnathan. Johnathan Keller PA-C 07/06/2025 10:11 AM Signed [facility] NEW PATIENT CLINIC NOTE (M) Note was generated by [employer] and edited as appropriate SERVICE DATE: July 06, 2025 NAME: Ernst Miles GENDER: male CHIEF COMPLAINT: The patient is a 69-year-old male presenting for evaluation of a groin rash. HISTORY OF PRESENT ILLNESS: The patient is a 69-year-old male presenting for evaluation of a groin rash. Groin Rash: - Rash in the groin area x2 months. - Described as "a bed of balls." - No treatment initiated prior to this visit. - Rash is located on the top of the groin area. - Denies associated burning or pain. - Not using incontinence pads. - Was previously prescribed nystatin powder on 06/02 of last year, but has not been using it. MEDICATIONS: METOPROLOL TARTRATE PO Take 12.5 mg by mouth two times a day. isosorbide mononitrate ER (IMDUR) 60 mg 24 hr tablet Take 60 mg by mouth once daily. ketoconazole (NIZORAL) 2 % shampoo Apply to affected area two times a week. Every Saturday and Saturday Apply to scalp[ and body topically carbidopa-levodopa (SINEMET 25-100) 25-100 mg per tablet Take 2 tablets by mouth three times daily. citalopram hydrobromide (CELEXA) 10 mg tablet Take 10 mg by mouth once daily. cyanocobalamin (VITAMIN B-12) 500 mcg tablet Take 1 tablet by mouth once daily. (Patient taking differently: Take 2 tablets by mouth every other day.) levothyroxine (SYNTHROID) 150 mcg tablet levothyroxine Levothyroxine Active 150 MCG DAILY November 23, 2019 3:03pm 11-23-2019 [facility] ([id number]) meloxicam (MOBIC) 15 mg tablet (Patient taking differently: Take 7.5 mg by mouth two times a day.) MULTIVITAMIN W-MINERALS/LUTEIN (CENTRUM SILVER ORAL) Take 1 tablet by mouth once daily. lisinopril 2.5 mg tablet Take 2.5 mg by mouth once daily. 20 MG by mouth daily in the morning (Patient taking differently: Take 10 mg by mouth once daily. 20 MG by mouth daily in the morning) CLARITIN 10 MG TAB Take 10 mg by mouth once daily. BENZTROPINE 1 MG TAB Take by mouth twice daily. 0.5 MG (Patient taking differently: Take 1 mg by mouth two times a day.) SYNTHROID 100 MCG TAB Take 150 mcg by mouth. (Patient taking differently: Take 150 mcg by mouth daily before breakfast.) nystatin (MYCOSTATIN) powder Apply 1 application to affected area two times a day. OXYGEN, HOME THERAPY, Inhale 2 L/min as [...] ounces of liquid and take as directed. qdcyucffnkdbg-zjk-tc ly80-PF (REFRESH DIGITAL PF) 0.5-1-0.5 % dpet Use in eyes three times daily. One drop in both eyes three times daily ANTACID, CALCIUM CARBONATE, ORAL Take 500 mg by mouth twice daily. ipratropium bromide (ATROVENT) 42 mcg (0.06 %) nasal spray Use 1 Hancock in the nose twice daily. methyl salicylate-menthol (MUSCLE RUB) 15-10 % topical cream Apply to affected area three times daily as needed. VENTOLIN HFA 90 mcg/actuation inhaler timolol (TIMOPTIC-XE) 0.5 % ophthalmic gel-forming Use 1 Drop in both eyes daily at bedtime. omeprazole (PRILOSEC) 20 mg capsule Take 20 mg by mouth once daily. Cholecalciferol, Vitamin D3, 25 mcg (1,000 unit) cap Take 1,000 Units by mouth once daily. mupirocin (BACTROBAN) 2 % ointment Apply 1 application to affected area three times daily. GARLIC OIL ORAL Take by mouth. ascorbic acid, vitamin C, (VITAMIN C) 500 mg tablet Take 500 mg by mouth once daily. naproxen 500 mg tablet Take 500 mg by mouth two time (more content not included)... Normal [facility] Neurology Visit Reporton Neurology Visit Report [facility] [address], [address] [place] [address] OFFICE VISIT Date of Service: 06/10/25 MR#: [id number] Acct: [id number] Name: ERNST MILES Rep #: [id number] : 1955 Provider: Dr. Paul mccarthy MD Age/Sex: 69/M Location: [facility]. Status: Signed HPI HPI Chief Complaint: Details: Interim History: Ernst returns for follow-up visit. He has a history of hypertension, hyperlipidemia, hypothyroidism, gastroesophageal reflux disease, depression, anxiety and schizophrenia who presented for evaluation of possible Parkinson's disease. He resides in a fdc facility. During school, he was in special education classes; he left school in the 10th grade. He stated that he was diagnosed with schizophrenia at the age of 30. Details of his past medical history are scant. He apparently began exhibiting slowing of his gait and has had difficulty arising from a chair and right rolling in bed. He was vague with regard to the time of onset of his gait difficulty. He had had multiple falls in the past. He began having a tremor in the right hand and now has an intermittent tremor in both hands. He has hypophonia. He denied having swallowing difficulty. He reported having some memory difficulty that has been present since 2020. Rivastigmine was initiated earlier in 2024. He currently takes rivastigmine 4.5mg twice daily. He has headaches about once every 2 weeks; individual headaches last about 1 day. He does not have associated nausea. Acetaminophen has been of of benefit. Flurbiprofen was of moderate benefit. He has had physical therapy. He remains able to ambulate independently. He reported having weakness in the arms and legs. He denied having numbness. He has been taking carbidopa/levodopa but did not feel that this was of benefit and had not noticed improvement of his mobility after increasing his dose of carbidopa/levodopa 25/100 to 2 tablets 4 times daily in 2022. He now takes carbidopa/levodopa 25/100 2 tablets 3 times daily. He takes benztropine and this has been of some benefit; he reported improvement in his rate of walking since increasing his dose of benztropine to 1 mg twice daily. He has a tremor. He was hospitalized in September 2022 for altered mental status associated with a urinary tract infection for which he was treated with an antibiotic; he was diagnosed with a metabolic encephalopathy due to a urinary tract infection, dehydration and hyponatremia (sodium 129 on 09/19/2022). He has had left hip musculoskeletal pain. He has had neck pain and low back pain. Flurbiprofen was of modest benefit for his headaches and musculoskeletal pain. He has been prescribed diclofenac as needed however he he does not recall specifically taking this medication. He takes fluphenazine for his psychiatric condition. Mini-Mental status exam score was 22/30 in January 2023 and 24/30 in December 2024. His head MRI from May 2023 revealed an 13 mm incidental meningioma in the left frontal parafalcine region. A follow-up head MRI in June 2024 revealed no change in the meningioma. Prior use of ibuprofen was not well-tolerated (caused gastrointestinal symptoms). Physical Exam: Neuro: The patient is awake; a tremor is noted in the hands; Mini-Mental status exam score is 23/30; gait is mildly slow Heart: Regular rate and rhythm Supplemental Info Lipid profile (11/20/2019): Triglycerides 242 (high), HDL 40 (normal), LDL 94 (normal), VLDL 48 (high), cholesterol 182 (normal) Lumbar x-rays (06/28/2021): FINDINGS: Normal lumbar lordosis. There is no substantial scoliosis. There is a normal alignment of the vertebrae. There is multilevel endplate spondylosis of the lumbar vertebrae. There is multi-level degenerative disc disease with multi-level disc space narrowing. Facet joint osteoarthritis. There is atherosclerotic calcification of the abdominal aorta without a demonstrated aneurysm. IMPRESSION: Degenerative changes of the spine, as detailed above. These images were reviewed on 02/26/2022. Vitamin D (03/10/2022): 26.7 (insufficiency range) Pelvic and left hip x-rays (06/16/2022): FINDINGS: There is a non-specific bowel gas pattern. Normal visualized soft tissue structures. There is narrowing with cortical sclerosis and osteophyte formation of the sacroiliac joint consistent with degenerative osteoarthritic changes. Normal bilateral superior and inferior pubic rami. Normal pubic symphysis. Normal bilateral ischial tuberosities. Normal visualized femoral head. Normal acetabulum. There is moderate articular joint space narrowing of the hip. IMPRESSION: Degenerative arthrosis, no demonstrated fracture suspicious osseous lesion. Head CT (07/18/2022): FINDINGS: BRAIN PARENCHYMA: No intra- or extra-axial hemorrhage. No evidence of acute infarct. No intracranial mass or mass effect. There is preservation (more content not included)... [facility] Telephone (UROLWS) ERNST MILES ([id number]) 1955 M Date Time Provider Department 05/03/25 JOHNATHAN KELLER During your visit today, we recorded the following information about you: Vivienne Gonzáles LPN 05/03/2025 4:14 PM Signed Called patient. Call goes to [facility]. Spoke with TRISTA Torres who states Ultrasound was done by [facility] and she will fax those results. TRISTA Roman Kimberly, LPN 05/05/2025 4:26 PM Signed Received fax of results. Uploaded to [employer] via [email or web address]. Vivienne Gonzáles LPN Allergies As of Date: 05/03/2025 Noted Allergy Reaction PENICILLINS 04/16/2013 16 - Unknown Date Reviewed: 03/26/2023 Reviewed by: Vivienne Gonzáles LPN - Fully Assessed Reason for Visit: Appointment [186] Prescriptions as of 05/05/2025 - OXYGEN, HOME THERAPY, Inhale 2 L/min as instructed as directed. 2-5 L/M - finasteride (PROSCAR) 5 mg tablet Take 5 mg by mouth daily at bedtime. - pantoprazole DR (PROTONIX) 40 mg tablet Take 40 mg by mouth once daily. - rivastigmine tartrate (EXELON) 4.5 mg capsule Take 4.5 mg by mouth twice daily. - tamsulosin (FLOMAX) 0.4 mg Take 0.8 mg by mouth daily at bedtime. - fluPHENAZine decanoate (PROLIXIN DECANOATE) 25 mg/mL injection Inject 25 mg intramuscularly every 2 weeks. - pravastatin (PRAVACHOL) 40 mg tablet Take 40 mg by mouth daily at bedtime. - polyethylene glycol 3350 17 gram packet Take 17 g by mouth once daily. Dissolve dose in 4 - 8 ounces of liquid and take as directed. - whyuiwoowqvrg-pae-we ly80-PF (REFRESH DIGITAL PF) 0.5-1-0.5 % dpet Use in eyes three times daily. One drop in both eyes three times daily - ANTACID, CALCIUM CARBONATE, ORAL Take 500 mg by mouth twice daily. - carbidopa-levodopa (SINEMET 25-100) 25-100 mg per tablet Take 2 tablets by mouth three times daily. - citalopram hydrobromide (CELEXA) 10 mg tablet Take 10 mg by mouth once daily. - cyanocobalamin (VITAMIN B-12) 500 mcg tablet Take 1 tablet by mouth once daily. - ipratropium bromide (ATROVENT) 42 mcg (0.06 %) nasal spray Use 1 Hancock in the nose twice daily. - methyl salicylate-menthol (MUSCLE RUB) 15-10 % topical cream Apply to affected area three times daily as needed. - levothyroxine (SYNTHROID) 150 mcg tablet levothyroxine Levothyroxine Active 150 MCG DAILY November 23, 2019 3:03pm 11-23-2019 [facility] ([id number]) - meloxicam (MOBIC) 15 mg tablet - VENTOLIN HFA 90 mcg/actuation inhaler - timolol (TIMOPTIC-XE) 0.5 % ophthalmic gel-forming Use 1 Drop in both eyes daily at bedtime. - omeprazole (PRILOSEC) 20 mg capsule Take 20 mg by mouth once daily. - Cholecalciferol, Vitamin D3, 25 mcg (1,000 unit) cap Take 1,000 Units by mouth once daily. - mupirocin (BACTROBAN) 2 % ointment Apply 1 application to affected area three times daily. - MULTIVITAMIN W-MINERALS/LUTEIN (CENTRUM SILVER ORAL) Take by mouth. - GARLIC OIL ORAL Take by mouth. - ascorbic acid, vitamin C, (VITAMIN C) 500 mg tablet Take 500 mg by mouth once daily. - naproxen 500 mg tablet Take 500 mg by mouth twice daily with meals. - lisinopril 2.5 mg tablet Take 2.5 mg by mouth once daily. 20 MG by mouth daily in the morning - DOCOSAHEXANOIC ACID/EPA (FISH OIL ORAL) Take by mouth. - budesonide-formotero l (SYMBICORT) 160-4.5 mcg/actuation inhaler Inhale 2 Puffs as instructed twice daily. - AMLODIPINE BESYLATE (AMLODIPINE ORAL) Take by mouth. - traZODone 100 mg tablet Take 100 mg by mouth daily at bedtime. 50 MG by mouth at bedtime - simvastatin (ZOCOR) 20 mg tablet Take 20 mg by mouth daily at bedtime. - Gabapentin 300 mg tab Take by mouth. - fluPHENAZine Decanoate 25 mg/mL syrg by INJECTION(UNSPECIFIE D PARENTERAL ROUTES) route. - CLARITIN 10 MG TAB Take 10 mg by mouth once daily. - ASPIRIN 81 MG TAB Take one(1) tablet daily. - BENZTROPINE 1 MG TAB Take by mouth twice daily. 0.5 MG - COLACE 50 MG CAP Take by mouth. 200 mg by mouth every morning - ATIVAN 0.5 MG TAB Take one(1) tablet two(2) times daily. - ATIVAN 1 MG TAB Take one(1) tablet three times daily. - SYNTHROID 100 MCG TAB Take 150 mcg by mouth. - COSOPT 2 %-0.5 % EYE DROPS drops daily - CLINDAMYCIN 1 % TOPICAL SOLN Apply to affected area(s) twice daily. Problem List As Of Date: 05/03/2025 (None) Encounter Status:Closed by VIVIENNE GONZÁLES on 05/05/25 Normal [facility] TSH DL <= 0.005 mIU/L QnOrde red By: Nadia Fisher on 04-28-2025 TSH Qn 1.300 uIU/mL 0.300-4.200 [facility] Thyroid Stim Hormone (TSH)on 04-28-2025 TSH 1.300 uIU/mL Normal 0.300-4.200 [facility] Comment on above: Order Comment: 309.1 Performed By: #### L 501.9520 #### [facility] [address] [place], [address] Hemoglobin A1con 04-12-2025 HbA1c (Bld) [Mass fraction] 5.8 % High <=5.6 [facility] Comment on above: Order Comment: 309-1 Result Comment: Norm al < 5.7 % Prediabetic 5.7 - 6.4 % Diabetic >or= 6.5 % Please note range changes. Performed By: #### L 500.2500, L100.0500 #### [facility] [address] [place], [address] Hemoglobin A1c percentageOrd ered By: Nadia Fisher on 04-12-2025 HbA1c (Bld) [Mass fraction] 5.8 % High <5.7 [facility] Comment on above: Normal < 5.7 % Predi abetic 5.7 - 6.4 % Diabetic >or= 6.5 % Please note range changes. Magnesiumon 04-12-2025 Magnesium [Mass/Vol] 2.3 mg/dL High 1.5-2.2 [facility] Comment on above: Order Comment: 309-1 Performed By: #### L 500.2500, L100.0500 #### [facility] [address] [place], [address] Magnesium measurement (mass/ volume)Ordered By: Nadia Fisher on 04-12-2025 Magnesium (Unsp spec) [Mass/Vol] 2.3 mg/dL High 1.5-2.2 [facility] TSH DL <= 0.005 mIU/L QnOrde red By: Nadia Fisher on 04-12-2025 TSH Qn 1.330 uIU/mL 0.300-4.200 [facility] Thyroid Stim Hormone (TSH)on 04-12-2025 TSH 1.330 uIU/mL Normal 0.300-4.200 [facility] Comment on above: Order Comment: 309-1 Performed By: #### L 500.2500, L100.0500 #### [facility] [address] [place], [address] Vitamin B12on 03-12-2025 Cobalamin (Vitamin B12) [Mass/Vol] 703 pg/mL Normal 180-914 [facility] Comment on above: Performed By: #### L 503.0106 #### [facility] [address] [place], [address] Vitamin B12 ser/plasOrdered By: Nadia Fisher on 03-12-2025 Cobalamin (Vitamin B12) [Mass/Vol] 703 pg/mL 180-914 [facility] Vitamin B12on 03-11-2025 Cobalamin (Vitamin B12) [Mass/Vol] 722 pg/mL Normal 180-914 [facility] Comment on above: Order Comment: 309-1 Performed By: #### L 503.0106 #### [facility] [address] [place], [place], [address] Vitamin B12 ser/plasOrdered By: Nadia Fisher on 03-11-2025 Cobalamin (Vitamin B12) [Mass/Vol] 722 pg/mL 180-914 [facility] Cardiology Visit Reporton Cardiology Visit Report [facility] [address] [place], [place] [address] OFFICE VISIT Date of Service: 03/01/25 MR#: [id number] Acct: [id number] Name: ERNST MILES Rep #: [id number] : 1955 Provider: Dr. Alexei Locke MD Age/Sex: 69/M Location: [facility] Status: Signed HPI HPI History of Present Illness Details: This gentleman with history of meningioma, Alzheimer's disease, Parkinson's disease, hypertension and dyslipidemia is here for follow-up visit. Complains of occasional left-sided chest discomfort. No shortness of breath. Patient has had a coronary CT angio done. It showed mild ostial RCA disease. Mild to moderate LAD disease was also noted. No severe stenosis. Echocardiogram showed normal LV systolic function. 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 Accompanied by: Self Is patient in pain?: No Allergies Penicillins (PCN) Allergy (Severe, Verified 03/01/25 09:46) Anaphylaxis Medications ???Medication ???Instructions ???Recorded ???Confirmed ???Type levothyroxine 150 mcg tablet 150 mcg PO DAILY thyroid 11/23/19 03/01/25 History lisinopril 20 mg tablet 20 mg PO DAILY blood pressure 11/0203/01/25 History ipratropium bromide 42 mcg (0.06 1 spray intranasal BID allergy 04/2203/01/25 History %) nasal spray pravastatin 40 mg tablet 40 mg PO QHS cholesterol 08/06/22 03/01/25 History albuterol sulfate 90 mcg/actuation 2 puff inhalation Q6H PRN 03/01/25 History aerosol inhaler Shortness Of Breath Or Wheezing citalopram 10 mg tablet 10 mg PO DAILY depressioin 2 03/01/25 History docusate sodium 100 mg capsule 200 mg PO DAILY stool softner 09/0103/01/25 History timolol maleate 0.5 % eye gel 1 drp EACH EYE QHS Check with 09/0103/01/25 History forming solution primary doctor finasteride 5 mg tablet 5 mg PO DAILY 12/23/23 03/01/25 Hi story gabapentin 100 mg capsule 200 mg PO BID 12/23/23 03/01/25 Hi story pantoprazole 40 mg tablet,delayed 40 mg PO DAILY gerd 12/23/2302/01 History release tamsulosin 0.4 mg capsule (Flomax) 0.8 mg PO QHS 12/23/23 03/01/25 History fluphenazine decanoate 25 mg/mL 12.5 mg (0.5 mL) IM .[id number] 01/3103/01/25 Rx injection solution schizophrenia #5 mL acetaminophen 325 mg chewable 650 mg PO Q4-6H PRN Elevated temp 06/02/24 03/01/25 History tablet acetaminophen 650 mg rectal 650 mg HI Q4H PRN 06/02/24 5 History suppository albuterol sulfate 2.5 mg/3 mL 2.5 mg inhalation Q4H PRN 06/02/24 03/01/25 History (0.083 %) solution for nebulization aluminum-magnesium hydroxide 225 30 ml PO .Q 4 h PRN 06/02/2403/01 History mg-200 mg/5 mL oral suspension carbidopa 25 mg-levodopa 100 mg 2 tab PO TID parkinsons 06/02/24 0 03/01/25 History tablet (Sinemet) carboxymethylcellulo se sodium 1 % 1 drp ophthalmic (eye) TID 03/01/25 History eye drops (Artificial Tears (carboxymethylcellul ose)) diclofenac sodium 75 mg 75 mg PO BID PRN headache/ muscle 06/02/24 03/01/25 Rx tablet,delayed release and joint pain #60 tabs guaifenesin 100 mg/5 mL oral liquid 200 mg PO Q4H PRN 06/02/2402/01 History magnesium hydroxide 400 mg/5 mL 30 ml PO DAILY PRN 06/02/24 History oral suspension (Milk of Magnesia) mineral oil (Fleet Mineral Oil 118 ml HI DAILY PRN constipation 0 06/02/24 03/01/25 History enema) mometasone-formotero l HFA 200 2 puff inhalation BID 06/02/24 History mcg-5 mcg/actuation aerosol inhaler (Dulera) multivitamin with minerals 1 tab PO DAILY 06/02/24 03/01/25 H istory (Multiple Vitamin-Minerals tablet) loratadine 10 mg tablet (Allergy 10 mg PO QDAY PRN 10/16/24 5 History Relief (loratadine)) nitroglycerin 0.4 mg sublingual 0.4 mg sublingual Q5-15M PRN 10/1603/01/25 History tablet sennosides 8.6 mg-docusate sodium 1 tab-cap PO BID PRN 10/16/24 History 50 mg capsule (Senna Plus) furosemide 40 mg tablet 40 mg PO QDAY #90 tabs 10/21/24 Rx potassium chloride 20 mEq 20 meq PO QDAY #90 tabs 10/21/24 0 03/01/25 Rx tablet,extended release metoprolol tartrate 25 mg tablet 12.5 mg PO BID 11/26/24 03/01/25 H istory benztropine 1 mg tablet 1 mg PO TID #90 tabs 12/10/2402/01 Rx bisacodyl 10 mg rectal suppository 10 mg P (more content not included)... Normal [facility] Basic Metabolic Profile (BMP )on 01-13-2025 BUN/CRE 16.8 RATIO Normal 10-20 [facility] Comment on above: Order Comment: 309-1 Performed By: #### L 500.2500, L100.0500 #### [facility] [address] [place], [address] CA,Total 8.9 mg/dL Normal 8.5-10.1 [facility] Comment on above: Order Comment: 309-1 Performed By: #### L 500.2500, L100.0500 #### [facility] [address] [place], [address] Chloride [Moles/Vol] 101 mmol/L Normal 98-107 [facility] Comment on above: Order Comment: 309-1 Performed By: #### L 500.2500, L100.0500 #### [facility] [address] [place], [address] CO2 [Moles/Vol] 29.0 mmol/L Normal 21.0-32.0 [facility] Comment on above: Order Comment: 309-1 Performed By: #### L 500.2500, L100.0500 #### [facility] [address] [place], [address] Creatinine [Mass/Vol] 0.77 mg/dL Normal 0.70-1.30 [facility] Comment on above: Order Comment: 309-1 Result Comment: The validity of the calculated GFR GFRAA in patients over 70 years has not been determined. Clinical correlation is essential. Performed By: #### L 500.2500, L100.0500 #### [facility] [address] [place], [address] EST GFR - AA 128 mL/min Normal >60 [facility] Comment on above: Order Comment: 309-1 Result Comment: Afri can Nigerien GFR Calc Performed By: #### L 500.2500, L100.0500 #### [facility] [address] [place], [address] GAP 5 Normal 5-15 [facility] Comment on above: Order Comment: 309-1 Performed By: #### L 500.2500, L100.0500 #### [facility] [address] [place], [address] GFR/1.73 sq M.predicted among non-blacks MDRD (S/P/Bld) [Vol rate/Area] 106 mL/min/{1.73_m2} Normal >60 [facility] Comment on above: Order Comment: 309-1 Result Comment: Non- GFR Calc Performed By: #### L 500.2500, L100.0500 #### [facility] [address] [place], [address] Glucose [Mass/Vol] 102 mg/dL Normal 74-106 [facility] Comment on above: Order Comment: 309-1 Result Comment: Fast ing Glucose result from 100 to 125 mg/dL suggests IMPAIRED HOMEOSTASIS per A.D.A. criteria. Performed By: #### L 500.2500, L100.0500 #### [facility] [address] [place], [address] Potassium [Moles/Vol] 4.0 mmol/L Normal 3.5-5.1 [facility] Comment on above: Order Comment: 309-1 Performed By: #### L 500.2500, L100.0500 #### [facility] [address] [place], [address] Sodium [Moles/Vol] 135 mmol/L Low 136-145 [facility] Comment on above: Order Comment: 309-1 Performed By: #### L 500.2500, L100.0500 #### [facility] [address] [place], [address] Urea nitrogen [Mass/Vol] 13 mg/dL Normal 7-18 [facility] Comment on above: Order Comment: 309-1 Performed By: #### L 500.2500, L100.0500 #### [facility] [address] [place], [address] CBC-Complete Blood Cnt No Di ffon 01-13-2025 Erythrocyte distribution width (RBC) [Ratio] 14.6 % Normal 11.6-14.6 [facility] Comment on above: Order Comment: 309-1 Performed By: #### L 500.2500, L100.0500 #### [facility] [address] [place], [address] Hematocrit (Bld) [Volume fraction] 41.1 % Normal 40-54 [facility] Comment on above: Order Comment: 309-1 Performed By: #### L 500.2500, L100.0500 #### [facility] [address] [place], [address] Hemoglobin (Bld) [Mass/Vol] 13.3 g/dL Normal 13.0-16.5 [facility] Comment on above: Order Comment: 309-1 Performed By: #### L 500.2500, L100.0500 #### [facility] [address] [place], [address] MCH (RBC) [Entitic mass] 28.6 pg Normal 27.0-32.0 [facility] Comment on above: Order Comment: 309-1 Performed By: #### L 500.2500, L100.0500 #### [facility] [address] [place], [address] MCHC (RBC) [Mass/Vol] 32.4 g/dL Normal 32-36 [facility] Comment on above: Order Comment: 309-1 Performed By: #### L 500.2500, L100.0500 #### [facility] [address] [place], [address] MCV (RBC) [Entitic vol] 88.4 fL Normal 80-94 [facility] Comment on above: Order Comment: 309-1 Performed By: #### L 500.2500, L100.0500 #### [facility] [address] [place], [address] Platelet mean volume (Bld) [Entitic vol] 9.1 fL Normal 6.2-12.0 [facility] Comment on above: Order Comment: 309-1 Performed By: #### L 500.2500, L100.0500 #### [facility] [address] [place], [address] Platelets (Bld) [#/Vol] 199 10*3/uL Normal 150-450 [facility] Comment on above: Order Comment: 309-1 Performed By: #### L 500.2500, L100.0500 #### [facility] [address] [place], [address] RBC (Bld) [#/Vol] 4.65 10*6/uL Normal 4.6-6.2 [facility] Comment on above: Order Comment: 309-1 Performed By: #### L 500.2500, L100.0500 #### [facility] [address] [place], [address] RDW SD 47.2 fl High 35.1-43.9 [facility] Comment on above: Order Comment: 309-1 Performed By: #### L 500.2500, L100.0500 #### [facility] [address] [place], [address] WBC (Bld) [#/Vol] 6.2 10*3/uL Normal 4.4-11.0 [facility] Comment on above: Order Comment: 309-1 Performed By: #### L 500.2500, L100.0500 #### [facility] [address] [place], [address] Neurology Visit Reporton Neurology Visit Report [facility] [address], [address] [place], [place] [address] OFFICE VISIT Date of Service: 12/10/24 MR#: [id number] Acct: [id number] Name: ERNST MILES Rep #: [id number] : 1955 Provider: Dr. Paul mccarthy MD Age/Sex: 69/M Location: [facility]. Status: Signed [facility] Chief Complaint: Details: Interim History: Ernst returns for follow-up visit. He has a history of hypertension, hyperlipidemia, hypothyroidism, gastroesophageal reflux disease, depression, anxiety and schizophrenia who presented for evaluation of possible Parkinson's disease. He resides in a fdc facility. During school, he was in special education classes; he left school in the 10th grade. He stated that he was diagnosed with schizophrenia at the age of 30. Details of his past medical history are scant. He apparently began exhibiting slowing of his gait and has had difficulty arising from a chair and right rolling in bed. He was vague with regard to the time of onset of his gait difficulty. He previously had multiple falls however he denies having any falls more recently. He began having a tremor in the right hand and now has an intermittent tremor in both hands. He has hypophonia. He denied having swallowing difficulty. He reported having some memory difficulty that has been present since 2020. He denies having any change in his memory within recent months. He has headaches about once every 2 weeks; individual headaches last about 1 day. Acetaminophen has been of of benefit. Flurbiprofen was of moderate benefit. Diclofenac as needed has been prescribed however he does not recall specifically trying this medication. He does not have associated nausea. He is receiving physical therapy. He remains able to ambulate independently. He reported having weakness in the arms and legs. He denied having numbness. He has been taking carbidopa/levodopa but did not feel that this was of benefit and had not noticed improvement of his mobility after increasing his dose of carbidopa/levodopa 25/100 to 2 tablets 4 times daily in 2022. He now takes carbidopa/levodopa 25/100 2 tablets 3 times daily. He takes benztropine and this has been of some benefit; he reports improvement in his rate of walking since increasing his dose of benztropine to 1 mg twice daily. He states that his tremor has recently worsened. He has been taking rivastigmine for his memory difficulty. He has had neck pain and low back pain. He was hospitalized in September 2022 for altered mental status associated with a urinary tract infection for which he was treated with an antibiotic; he was diagnosed with a metabolic encephalopathy due to a urinary tract infection, dehydration and hyponatremia (sodium 129 on 09/19/2022). He has had left hip musculoskeletal pain. Flurbiprofen was of modest benefit for his headaches and musculoskeletal pain. He has been prescribed diclofenac as needed however he he does not recall specifically taking this medication. He takes fluphenazine for his psychiatric condition. Mini-Mental status exam score was 22/30 in January 2023. The patient's head MRI from May 2023 revealed an 13 mm incidental meningioma in the left frontal parafalcine region. A follow-up head MRI in June 2024 revealed no change in the meningioma. Prior use of ibuprofen was not well-tolerated (caused gastrointestinal symptoms). Physical Exam: Neuro: The patient is awake; an intermittent resting tremor is noted in the hands; no rigidity is noted in the wrists; Mini-Mental status exam score is 24/30; gait is mildly slow; he exhibits decreased arm swing bilaterally Neck: No bruits Heart: Regular rate and rhythm Supplemental Info Lipid profile (11/20/2019): Triglycerides 242 (high), HDL 40 (normal), LDL 94 (normal), VLDL 48 (high), cholesterol 182 (normal) Lumbar x-rays (06/28/2021): FINDINGS: Normal lumbar lordosis. There is no substantial scoliosis. There is a normal alignment of the vertebrae. There is multilevel endplate spondylosis of the lumbar vertebrae. There is multi-level degenerative disc disease with multi-level disc space narrowing. Facet joint osteoarthritis. There is atherosclerotic calcification of the abdominal aorta without a demonstrated aneurysm. IMPRESSION: Degenerative changes of the spine, as detailed above. These images were reviewed on 02/26/2022. Vitamin D (03/10/2022): 26.7 (insufficiency range) Pelvic and left hip x-rays (06/16/2022): FINDINGS: There is a non-specific bowel gas pattern. Normal visualized soft tissue structures. There is narrowing with cortical sclerosis and osteophyte formation of the sacroiliac joint consistent with degenerative osteoarthritic changes. Normal bilateral superior and inferior pubic rami. Normal pubic symphysis. Normal bilateral ischial tuberosities. Normal visualized femoral head. Normal acetabulum. There is moderat (more content not included)... Normal [facility] Coronary Angiography CTon Coronary Angiography CT [facility] Imaging Services [address] [place] [address] 11/28/24 1103 MR#: [id number] Acct: [id number] Name: ERNST MILES Rep #: [id number] : 1955 69 From: Julien Trevino MD PCP: Dr. Ayad Brown MD Status:REG CLI Y Location: [facility] CCTA w/Cont Coronary Arteries Date of Study:: 11/27/24 Chest pain Coronary Calcium Scoring: High-resolution Computed Tomographic imaging of the chest was performed on [11/27/24 ], with particular attention paid to the coronary arteries. Intravenous contrast agent was administered per protocol and images reconstructed and displayed. The image quality as well as suboptimal. LEFT MAIN CORONARY ARTERY: Arises from the left coronary cusp with minimal stenosis.. coronary calcium score 63.8 [] LEFT ANTERIOR DESCENDING CORONARY ARTERY: This arises from the left main coronary artery. There is eccentric calcification noted proximally and in the midsegment. There is mild to moderate stenosis noted. No high-grade stenosis is present. The vessel continues to the apex of the ventricle. Coronary calcium score was 109. [] LEFT CIRCUMFLEX CORONARY ARTERY: This vessel is not very well-visualized its nondominant with no coronary calcium score and a command cannot be made about stenosis. [] RIGHT CORONARY ARTERY: Ostial 50% stenosis this arises from the right coronary cusp and there is mild disease noted the vessel bifurcates to the posterior descending artery and posterolateral vessel. Coronary calcium score is 33. [] THORACIC AORTA: [] PULMONARY ARTERY: [] LEFT ATRIUM/APPENDAGE: [] MITRAL VALVE: [] AORTIC VALVE: [] LEFT VENTRICLE: [] CORONARY CALCIUM SCORE: Total coronary calcium score is 206 CT angio with coronary calcium score demonstrating moderate ostial right coronary stenosis and eccentric nonocclusive calcification and stenosis noted in the proximal to mid left anterior descending artery. [] 11/28/24 1107 Date Julien Trevino MD Cosigner Signature (if applicable): Date CC: Dr. Alexei Locke MD; Dr. Julien Trevino MD; Dr. Ayad Brown MD Signed Normal [facility] Echo Complete W/ Contraston 11-27-2024 Echo Complete W/ Contrast [facility] [address] [place] [address] Echo Complete W/ Contrast 11/27/24 1339 MR#: [id number] Acct: [id number] Name: ERNST MILES Rep #: [id number] : 1955 69 From: Alexei Locke MD Attending Dr: Dr. Alexei Locke MD Status: REG CLI Ordering Dr: Alexei Locke MD Date: 11/27/24 Location: [facility] Sex: M C Admitted: Reason For Study: Dyspnea/SOB Procedure This was a 2D Doppler, Color Flow transthoracic echocardiogram. Contrast injection was performed. The study was technically difficult. Exam performed in department. Left Ventricle Normal size and thickness. The left ventricular ejection fraction is 60 %. Mild posterior hypokinesis. Stage 1 diastolic dysfunction. Right Ventricle Normal right ventricle. Atria The left and right atria are normal. Mitral Valve There is Mild focal posterior mitral annular calcification. Tricuspid Valve Mild tricuspid valve insufficiency. Right ventricular systolic pressure estimated to be 40 mmHg. Aortic Valve Trisinus/trileaflet aortic valve. Pulmonic Valve The pulmonic valve is not well visualized. Great Vessels Normal sized aortic root. Pericardium/Pleural No pericardial effusion. Medication Diluted definity 1.5ml given slow IV push to enhance endocardial definition. MMode/2D Measurements Calculations LVIDd: 5.3 cm IVSd: 1.0 cm asc Aorta Diam: 3.5 cm LVIDs: 3.6 cm LVPWd: 1.00 cm RVDd: 3.8 cm FS: 32.3 % _ LAV(MOD-bp): 41.8 ml LVAd ap4: 33.7 cm2 SV(MOD-sp4): 80.3 ml LAV(MOD-bp) Indexed: 16.9 ml/m2 LVLd ap4: 7.9 cm SI(MOD-sp4): 32.4 ml/m2 LAV(MOD-sp2): 43.2 ml EDV(MOD-sp4): 116.9 ml LAV(MOD-sp4): 35.1 ml EDV(sp4-el): 122.0 ml LVAs ap4: 17.2 cm2 LVLs ap4: 6.7 cm ESV(MOD-sp4): 36.6 ml ESV(sp4-el): 37.3 ml EF(MOD-sp4): 68.7 % EF(sp4-el): 69.4 % _ SV(sp4-el): 84.6 ml LA A4 area: 15.6 cm2 LA dimension(2D): 3.7 cm _ RA A4 area: 15.6 cm2 TAPSE: 2.1 cm Time Measurements MV dec time: 0.28 sec Doppler Measurements Calculations MV E max alvaro: 52.7 cm/sec Lat Peak E' Alvaro: 7.4 cm/sec Med Peak E' Alvaro: 8.5 cm/sec MV A max alvaro: 55.6 cm/sec E/E' lat: 7.1 E/E' med: 6.2 MV E/A: 0.95 _ MV dec slope: 185.4 cm/sec2 Ao V2 max: 136.8 cm/sec LV V1 max: 117.7 cm/sec Ao max P.5 mmHg LV V1 max P.5 mmHg Ao V2 mean: 108.3 cm/sec Ao mean P.0 mmHg Ao V2 VTI: 30.9 cm _ PA V2 max: 89.8 cm/sec TR max alvaro: 252.2 cm/sec TR max P.4 mmHg ECHO/Echo Complete W/ Contrast Interpretation Summary The left ventricular ejection fraction is 60 %. Mild posterior hypokinesis. Stage I diastolic dysfunction. Mild tricuspid valve insufficiency. Right ventricular systolic pressure estimated to be 40 mmHg. The study was technically difficult. Ordering Physician: Alexei Locke Referring Physician: Ayad Brown Chi Performed By: Shawnee Vidal RDCS, RVT 12/01/24 0846 Date Alexei Locke MD CC: Dr. Alexei Locke MD; Dr. Ayad Brown MD Date Dictated: 11/27/24 1339 Date Transcribed: 12/01/24845 [employer]: Signed Normal [facility] Limited Chest CT Cardiac [facility] 11-27-[address] Cardiac Only [facility] Imaging Services [address] [place] [address] Cardiac Only MR#: [id number] Acct: [id number] Name: ERNST MILES Rep #: [id number] : 1955 M 69 From: Antonio acevedo MD PCP: Dr. Ayad Brown MD Status: [facility] Study: Limited Chest CT Cardiac Only Date of Exam: Exam# [id number] Ordering Dr: Alexei Locke MD [id number] STUDY: CT CHEST T ABDOMEN WITHOUT CONTRAST REASON FOR EXAM: Male, 69 years old. CHEST PAIN OVER READ ONLY RADIATION DOSAGE (If Supplied By Facility): CTDIvol = ( 76 ) mGy, DLP = ( 2727.26 ) mGycm TECHNIQUE: Transaxial imaging was performed without the administration of intravenous contrast material. Individualized dose optimization techniques were used for this CT. COMPARISON: No relevant priors. FINDINGS: CHEST The lungs are normal. There is no demonstrated pleural abnormality. There are calcifications of the coronary arteries. Normal mediastinum. Normal hilar regions. Normal unenhanced pulmonary arteries. There is mild atherosclerotic calcification of the aortic arch. There are mild degenerative changes of the thoracic spine. Small hiatal hernia. IMPRESSION: Coronary artery calcification. Electronically Signed: Antonio Uribe MD at 14:43 EST , [id number] STUDY: CT CHEST WITH CONTRAST REASON FOR EXAM: Male, 69 years old. CHEST PAIN OVER READ ONLY RADIATION DOSAGE (If Supplied By Facility): CTDIvol = ( 48.05 ) mGy, DLP = ( 2727.26 ) mGycm TECHNIQUE: Transaxial imaging was performed following intravenous administration of ISOVUE 370-100ml. Individualized dose optimization techniques were used for this CT. COMPARISON: No relevant priors. FINDINGS: CHEST The lungs are normal. There is no demonstrated pleural abnormality. There are calcifications of the coronary arteries. Normal mediastinum. Normal hilar regions. Normal unenhanced pulmonary arteries. There is mild atherosclerotic calcification of the aortic arch. There are mild degenerative changes of the thoracic spine. There is no demonstrated abnormality of the visualized upper abdomen. CT/Limited Chest CT Cardiac Only IMPRESSION: Coronary artery calcification. Electronically Signed: Antonio Uribe MD at 14:44 EST , CC: Dr. Alexei Locke MD; Dr. Ayad Brown MD [employer]: Signed Normal [facility] Basic Metabolic Profile (BMP )on 10-28-2024 BUN/CRE 12.0 RATIO Normal 10-20 [facility] Comment on above: Order Comment: 309 Performed By: #### L 500.2500 #### [facility] [address] [place], [address] CA,Total 8.5 mg/dL Normal 8.5-10.1 [facility] Comment on above: Order Comment: 309 Performed By: #### L 500.2500 #### [facility] [address] [place], [address] Chloride [Moles/Vol] 101 mmol/L Normal 98-107 [facility] Comment on above: Order Comment: 309 Performed By: #### L 500.2500 #### [facility] [address] [place], [address] CO2 [Moles/Vol] 28.0 mmol/L Normal 21.0-32.0 [facility] Comment on above: Order Comment: 309 Performed By: #### L 500.2500 #### [facility] [address] [place], [address] Creatinine [Mass/Vol] 0.83 mg/dL Normal 0.70-1.30 [facility] Comment on above: Order Comment: 309 Result Comment: The validity of the calculated GFR GFRAA in patients over 70 years has not been determined. Clinical correlation is essential. Performed By: #### L 500.2500 #### [facility] [address] [place], [address] EST GFR - AA 118 mL/min Normal >60 [facility] Comment on above: Order Comment: 309 Result Comment: Afri can Nigerien GFR Calc Performed By: #### L 500.2500 #### [facility] [address] [place], [address] GAP 6 Normal 5-15 [facility] Comment on above: Order Comment: 309 Performed By: #### L 500.2500 #### [facility] [address] [place], [address] GFR/1.73 sq M.predicted among non-blacks MDRD (S/P/Bld) [Vol rate/Area] 97 mL/min/{1.73_m2} Normal >60 [facility] Comment on above: Order Comment: 309 Result Comment: Non- GFR Calc Performed By: #### L 500.2500 #### [facility] [address] [place], [address] Glucose [Mass/Vol] 94 mg/dL Normal 74-106 [facility] Comment on above: Order Comment: 309 Performed By: #### L 500.2500 #### [facility] [address] [place], [address] Potassium [Moles/Vol] 4.1 mmol/L Normal 3.5-5.1 [facility] Comment on above: Order Comment: 309 Result Comment: Slig ht Hemolysis, Result may be falsely increased. Performed By: #### L 500.2500 #### [facility] [address] [place], [address] Sodium [Moles/Vol] 135 mmol/L Low 136-145 [facility] Comment on above: Order Comment: 309 Performed By: #### L 500.2500 #### [facility] [address] [place], [place], [address] Urea nitrogen [Mass/Vol] 10 mg/dL Normal 7-18 [facility] Comment on above: Order Comment: 309 Performed By: #### L 500.2500 #### [facility] [address] [place], [place], [address] 12 Lead EKG performed by [facility] on 10-21-2024 12 Lead EKG performed by [facility] [address] [place] [address] 12 Lead EKG performed by [facility] 10/21/240 MR#: [id number] Acct: [id number] Name: ERNST MILES Rep #: [id number] : 1955 69 From: Alexei Locke MD Attending Dr: Dr. Alexei Locke MD Status: DEP AMB Ordering Dr: Alexei Locke MD Date: 10/21/24 Location: [facility] Sex: M C Admitted: [facility]/12 Lead EKG performed by [facility] ECG Report Interpretation ------Sinus Rhythm -Incomplete right bundle branch block. ABNORMAL Electronically signed on 12/28/2024 at 11:[address] Alexei Locke [employer] Version 8610 12/28/241119 Date Alexei Locke MD CC: Dr. Ayad Brown MD Date Dictated: 10/21/241031 Date Transcribed: 10/21/241031 [employer]: AR Signed Normal [facility] Cardiology Visit Reporton Cardiology Visit Report [facility] [address] [place] [address] OFFICE VISIT Date of Service: 10/21/24 MR#: [id number] Acct: [id number] Name: ERNST MILES Rep #: [id number] : 1955 Provider: Dr. Alexei Locke MD Age/Sex: 69/M Location: [facility] Status: Signed HPI HPI History of Present Illness Details: This gentleman has past history significant for mild coronary artery disease, diagnosed on coronary angiography in 2009. A pharmacological stress test done in 2019 was reported as negative for ischemia. Also history of left frontal meningioma, schizophrenia, mild late onset Alzheimer's dementia, hypertension and COPD. Patient complains of shortness of breath with exertion. According to him, it started "many months ago". Occasional chest discomfort with exertion but not predictably so. Denies any radiation to the arm neck or jaw. Denies orthopnea or PND. Positive lower extremity edema. 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 Accompanied by: Self Is patient in pain?: No Allergies Penicillins (PCN) Allergy (Severe, Verified 10/21/24 10:26) Anaphylaxis Medications ???Medication ???Instructions ???Recorded ???Confirmed ???Type levothyroxine 150 mcg tablet 150 mcg PO DAILY thyroid 11/23/19 10/16/24 History lisinopril 20 mg tablet 20 mg PO DAILY blood pressure 11/23/19 10/16/24 History calcium carbonate (Leandro-Gest 500 mg PO BID stomach 08/06/22 10/21/24 History Antacid) ipratropium bromide 42 mcg (0.06 1 spray intranasal BID allergy 08/06/22 10/16/24 History %) nasal spray pravastatin 40 mg tablet 40 mg PO QHS cholesterol 08/06/22 10/16/24 History albuterol sulfate 90 mcg/actuation 2 puff inhalation Q6H PRN 09/15/22 10/16/24 History aerosol inhaler Shortness Of Breath Or Wheezing citalopram 10 mg tablet 10 mg PO DAILY depressioin 09/15/22 10/16/24 History docusate sodium 100 mg capsule 200 mg PO DAILY stool softner 09/15/22 10/16/24 History lanolin alcohols-mineral 1 applic topical DAILY Check with 09/15/22 10/16/24 History oil-w.petrolatum-cer esin topical primary doctor cream (Minerin Creme topical) timolol maleate 0.5 % eye gel 1 drp EACH EYE QHS Check with 09/15/22 10/16/24 History forming solution primary doctor cyanocobalamin (vitamin B-12) 500 500 mcg PO DAILY 02/26/23 10/16/24 History mcg tablet finasteride 5 mg tablet 5 mg PO DAILY 12/23/23 10/16/24 History gabapentin 100 mg capsule 200 mg PO BID 12/23/23 10/16/24 History pantoprazole 40 mg tablet,delayed 40 mg PO DAILY gerd 12/23/23 10/16/24 History release tamsulosin 0.4 mg capsule (Flomax) 0.8 mg PO QHS 12/23/23 10/16/24 History benztropine 1 mg tablet 1 mg PO BID #60 tabs 02/01/24 10/16/24 Rx fluphenazine decanoate 25 mg/mL 12.5 mg (0.5 mL) IM .[id number] 02/01/24 10/16/24 Rx injection solution schizophrenia #5 mL rivastigmine tartrate 4.5 mg 4.5 mg PO BID #60 caps 02/03/24 10/16/24 Rx capsule acetaminophen 325 mg chewable 650 mg PO Q4-6H PRN Elevated temp 06/02/24 10/16/24 History tablet acetaminophen 650 mg rectal 650 mg HI Q4H PRN 06/02/24 10/16/24 History suppository albuterol sulfate 2.5 mg/3 mL 2.5 mg inhalation Q4H PRN 06/02/24 10/16/24 History (0.083 %) solution for nebulization aluminum-magnesium hydroxide 225 30 ml PO .Q 4 h PRN 06/02/24 10/16/24 History mg-200 mg/5 mL oral suspension carbidopa 25 mg-levodopa 100 mg 2 tab PO TID parkinsons 06/02/24 10/16/24 History tablet (Sinemet) carboxymethylcellulo se sodium 1 % 1 drp ophthalmic (eye) TID 06/02/24 10/16/24 History eye drops (Artificial Tears (carboxymethylcellul ose)) diclofenac sodium 75 mg 75 mg PO BID PRN headache/ muscle 06/02/24 10/16/24 Rx tablet,delayed release and joint pain #60 tabs guaifenesin 100 mg/5 mL oral liquid 200 mg PO Q4H PRN 06/02/24 10/16/24 History magnesium hydroxide 400 mg/5 mL 30 ml PO DAILY PRN 06/02/24 10/16/24 History oral suspension (Milk of Magnesia) mineral oil (Fleet Mineral Oil 118 ml HI DAILY PRN constipation 06/02/24 10/16/24 History enema) mometasone-formotero l HFA 200 2 puff inhalation BID 06/02/24 10/16/24 History mcg-5 mcg/actuation aerosol inhaler (Dulera) multivitamin with minerals 1 tab PO DAILY 06/02/24 10/16/24 History (Multiple Vitamin-Minerals tablet) sodium phosphates 19 gram-7 118 ml HI ONCE 06/02/24 10/16/24 History gram/197 mL enema (Fleet Enema Extra) trazodone 50 mg tablet 25 mg PO QHS 06/02/24 10/16/24 History loratadine 10 mg tablet (Allergy 10 mg PO QDAY PRN 10/16/24 10/16/24 Histor (more content not included)... Normal [facility] Thyroid Stim Hormone (TSH)on 09-29-2024 TSH 1.450 uIU/mL Normal 0.358-3.740 [facility] Comment on above: Order Comment: 309.1 Performed By: #### L 501.9517 #### [facility] [address] [place], [address] L501.4020on 09-18-2024 TROPONIN-I HS 18 pg/mL Normal 3.0-78.0 [facility] Comment on above: Order Comment: 1 Result Comment: Crispin webster Note: New Test Units and Gender Specific Reference Ranges. For more information see Policy Stat Procedure [place] High Sensitivity Troponin (TNIH) and attachments. Performed By: #### L 501.4020 #### [facility] [address] [place], [address] Iron Binding Capacity,Totalo n 09-14-2024 TIBC 362 ug/dL Normal 250-450 [facility] Comment on above: Order Comment: 309.1 Performed By: #### L 503.6075 #### [facility] [address] [place], [address] Basic Metabolic Profile (BMP )on 09-07-2024 BUN/CRE 13.0 RATIO Normal 10-20 [facility] Comment on above: Order Comment: 309-1 Performed By: #### L 500.2500 #### [facility] [address] [place], [address] CA,Total 9.2 mg/dL Normal 8.5-10.1 [facility] Comment on above: Order Comment: 309-1 Performed By: #### L 500.2500 #### [facility] [address] [place], [address] Chloride [Moles/Vol] 101 mmol/L Normal 98-107 [facility] Comment on above: Order Comment: 309-1 Performed By: #### L 500.2500 #### [facility] [address] [place], [address] CO2 [Moles/Vol] 25.0 mmol/L Normal 21.0-32.0 [facility] Comment on above: Order Comment: 309-1 Performed By: #### L 500.2500 #### [facility] [address] [place], [address] Creatinine [Mass/Vol] 0.85 mg/dL Normal 0.70-1.30 [facility] Comment on above: Order Comment: 309-1 Result Comment: The validity of the calculated GFR GFRAA in patients over 70 years has not been determined. Clinical correlation is essential. Performed By: #### L 500.2500 #### [facility] [address] [place], [address] EST GFR - AA 115 mL/min Normal >60 [facility] Comment on above: Order Comment: 309-1 Result Comment: Afri can Nigerien GFR Calc Performed By: #### L 500.2500 #### [facility] [address] [place], [address] GAP 10 Normal 5-15 [facility] Comment on above: Order Comment: 309-1 Performed By: #### L 500.2500 #### [facility] [address] [place], [address] GFR/1.73 sq M.predicted among non-blacks MDRD (S/P/Bld) [Vol rate/Area] 95 mL/min/{1.73_m2} Normal >60 [facility] Comment on above: Order Comment: 309-1 Result Comment: Non- GFR Calc Performed By: #### L 500.2500 #### [facility] [address] [place], [address] Glucose [Mass/Vol] 91 mg/dL Normal 74-106 [facility] Comment on above: Order Comment: 309-1 Performed By: #### L 500.2500 #### [facility] [address] [place], [address] Potassium [Moles/Vol] 4.1 mmol/L Normal 3.5-5.1 [facility] Comment on above: Order Comment: 309-1 Performed By: #### L 500.2500 #### [facility] [address] [place], [address] Sodium [Moles/Vol] 136 mmol/L Normal 136-145 [facility] Comment on above: Order Comment: 309-1 Performed By: #### L 500.2500 #### [facility] [address] [place], [address] Urea nitrogen [Mass/Vol] 11 mg/dL Normal 7-18 [facility] Comment on above: Order Comment: 309-1 Performed By: #### L 500.2500 #### [facility] [address] [place], [address] BNP,B-Type NATRIURETIC PEPTI Rg 09-04-2024 Natriuretic peptide B (Bld) [Mass/Vol] 20.0 pg/mL Normal 0-100 [facility] Comment on above: Order Comment: 309-1 Performed By: #### L 500.2500, L100.0500 #### [facility] [address] [place], [address] Basic Metabolic Profile (BMP )on 09-03-2024 BUN/CRE 15.8 RATIO Normal 10-20 [facility] Comment on above: Order Comment: 309-1 Performed By: #### L 500.2500, L100.0500 #### [facility] [address] [place], [address] CA,Total 8.7 mg/dL Normal 8.5-10.1 [facility] Comment on above: Order Comment: 309-1 Performed By: #### L 500.2500, L100.0500 #### [facility] [address] [place], [address] Chloride [Moles/Vol] 104 mmol/L Normal 98-107 [facility] Comment on above: Order Comment: 309-1 Performed By: #### L 500.2500, L100.0500 #### [facility] [address] [place], [address] CO2 [Moles/Vol] 20.0 mmol/L Low 21.0-32.0 [facility] Comment on above: Order Comment: 309-1 Performed By: #### L 500.2500, L100.0500 #### [facility] [address] [place], [address] Creatinine [Mass/Vol] 0.76 mg/dL Normal 0.70-1.30 [facility] Comment on above: Order Comment: 309-1 Result Comment: The validity of the calculated GFR GFRAA in patients over 70 years has not been determined. Clinical correlation is essential. Performed By: #### L 500.2500, L100.0500 #### [facility] [address] [place], [address] EST GFR - AA 131 mL/min Normal >60 [facility] Comment on above: Order Comment: 309-1 Result Comment: Afri can Nigerien GFR Calc Performed By: #### L 500.2500, L100.0500 #### [facility] [address] [place], [address] GAP 8 Normal 5-15 [facility] Comment on above: Order Comment: 309-1 Performed By: #### L 500.2500, L100.0500 #### [facility] [address] [place], [address] GFR/1.73 sq M.predicted among non-blacks MDRD (S/P/Bld) [Vol rate/Area] 108 mL/min/{1.73_m2} Normal >60 [facility] Comment on above: Order Comment: 309-1 Result Comment: Non- GFR Calc Performed By: #### L 500.2500, L100.0500 #### [facility] [address] [place], [address] Glucose [Mass/Vol] 91 mg/dL Normal 74-106 [facility] Comment on above: Order Comment: 309-1 Performed By: #### L 500.2500, L100.0500 #### [facility] [address] [place], [address] Potassium [Moles/Vol] 4.9 mmol/L Normal 3.5-5.1 [facility] Comment on above: Order Comment: 309-1 Result Comment: Mode rate Hemolysis, Result may be falsely increased. Performed By: #### L 500.2500, L100.0500 #### [facility] [address] [place], [address] Sodium [Moles/Vol] 132 mmol/L Low 136-145 [facility] Comment on above: Order Comment: 309-1 Performed By: #### L 500.2500, L100.0500 #### [facility] [address] [place], [address] Urea nitrogen [Mass/Vol] 12 mg/dL Normal 7-18 [facility] Comment on above: Order Comment: 309-1 Performed By: #### L 500.2500, L100.0500 #### [facility] [address] [place], [address] Vitamin B12on 08-28-2024 Cobalamin (Vitamin B12) [Mass/Vol] 670 pg/mL Normal 211-911 [facility] Comment on above: Order Comment: 309-1 Performed By: #### L 500.2500 #### [facility] [address] [place], [address] Basophil percentageOrdered B y: Nadia Fisher on 01-17-2024 Chloride [Moles/Vol] 104 mmol/L 98-107 [facility] Glucose [Mass/Vol] 102 mg/dL 74-106 [facility] Comment on above: Fasting Glucose resu lt from 100 to 125 mg/dL suggests IMPAIRED HOMEOSTASIS per A.D.A. criteria. Potassium [Moles/Vol] 4.4 mmol/L 3.5-5.1 [facility] Sodium [Moles/Vol] 139 mmol/L 136-145 [facility] - Chemistry and C hemistry - challengeOrdered By: Nadia Fisher on 01-17-2024 CO2 [Moles/Vol] 30.0 mmol/L 21.0-32.0 [facility] Urea nitrogen/Creatinine [Mass ratio] 8.9 mg/mg 10-20 [facility] No Panel InformationOrdered By: Nadia Fisher on 01-17-2024 Estimated GFR (MDRD) Amer 109 mL/min >60 [facility] Comment on above: GFR Calc Estimated GFR (MDRD) Non-Af Amer 90 mL/min >60 [facility] Comment on above: Non- GFR Calc Serum or plasma calcium messi urement (mass/volume)Ordered By: Nadia Fisher on 01-17-2024 Calcium [Mass/Vol] 9.0 mg/dL 8.5-10.1 [facility] Serum or plasma creatinine m easurement (mass/volume)Ordered By: Nadia Fisher on 01-17-2024 Creatinine [Mass/Vol] 0.90 mg/dL 0.70-1.30 [facility] Comment on above: The validity of the calculated GFR & GFRAA in patients over 70 years has not been determined. Clinical correlation is essential. Serum or plasma urea nitroge n measurement (mass/volume)Ordered By: Nadia Fisher on 01-17-2024 Urea nitrogen [Mass/Vol] 8 mg/dL 7-18 [facility] Thin prep Papanicolaou smear with manual screeningOrdered By: Nadia Fisher on 01-17-2024 Thin prep Papanicolaou smear with manual screening 5 5-15 [facility] No Panel InformationOrdered By: Nadia Fisher on 10-23-2023 Prostate Specific Antigen Screen 1.14 ng/mL 0.00-4.00 [facility] Comment on above: This test was perfor med using the TPSA assay method [facility]. Values obtained with differentassay methods cannot be used interchangably.When changing PSA assays in the course of monitoring apatient, additional sequential testing should be carriedout to confirm baseline values. Basophil percentageOrdered B y: Nadia Fisher on 10-14-2023 Bilirubin [Mass/Vol] 0.40 mg/dL 0.20-1.00 [facility] Comment on above: For patients on eltr ombopag therapy, use of Dimension [place] TBIL is not recommended. Chloride [Moles/Vol] 102 mmol/L 98-107 [facility] Glucose [Mass/Vol] 90 mg/dL 74-106 [facility] Potassium [Moles/Vol] 4.2 mmol/L 3.5-5.1 [facility] Protein [Mass/Vol] 6.6 g/dL 6.4-8.2 [facility] Sodium [Moles/Vol] 138 mmol/L 136-145 [facility] WBC (Bld) [#/Vol] 6.7 10*3/uL 4.4-11.0 [facility] Blood erythrocytes count (nu mber/volume)Ordered By: Nadia Fisher on 10-14-2023 RBC (Bld) [#/Vol] 4.80 10*6/uL 4.6-6.2 [facility] Blood hemoglobin measurement (mass/volume)Ordered By: Nadia Fisher on 10-14-2023 Hemoglobin (Bld) [Mass/Vol] 13.9 g/dL 13.0-16.5 [facility] Blood platelet mean volumeOr dered By: Nadia Fisher on 10-14-2023 Platelet mean volume (Bld) [Entitic vol] 9.6 fL 6.2-12.0 [facility] Determination of erythrocyte mean corpuscular volume (MCV)Ordered By: Nadia Fisher on 10-14-2023 MCV (RBC) [Entitic vol] 89.6 fL 80-94 [facility] Hematocrit Auto (Bld) [Volum e fraction]Ordered By: Nadia Fisher on 10-14-2023 Hematocrit (Bld) [Volume fraction] 43.0 % 40-54 [facility] - Chemistry and C hemistry - challengeOrdered By: Nadianarendra Fisher on 10-14-2023 ALP [Catalytic activity/Vol] 77 U/L 45-117 [facility] ALT [Catalytic activity/Vol] 16 U/L 16-61 [facility] CO2 [Moles/Vol] 31.0 mmol/L 21.0-32.0 [facility] Globulin (S) [Mass/Vol] 3.1 g/dL 2.2-4.2 [facility] Urea nitrogen/Creatinine [Mass ratio] 13.5 mg/mg 10-20 [facility] - Hematology and Cell countsOrdered By: Nadia Fisher on 10-14-2023 Erythrocyte distribution width (RBC) [Entitic vol] 45.6 fL 35.1-43.9 [facility] Erythrocyte distribution width (RBC) [Ratio] 14.0 % 11.6-14.6 [facility] MCH (RBC) [Entitic mass] 29.0 pg 27.0-32.0 [facility] MCHC Auto (RBC) [Mass/Vol]Or dered By: Nadia Fisher on 10-14-2023 MCHC (RBC) [Mass/Vol] 32.3 g/dL 32-36 [facility] No Panel InformationOrdered By: Nadia Fisher on 10-14-2023 Estimated GFR (MDRD) Amer 100 mL/min >60 [facility] Comment on above: GFR Calc Estimated GFR (MDRD) Non-Af Amer 83 mL/min >60 [facility] Comment on above: Non- GFR Calc Thyroid Stimulating Hormone (TSH) 1.18 uIU/mL 0.358-3.74 [facility] Platelets bldOrdered By: Marlo Fisher on 10-14-2023 Platelets (Bld) [#/Vol] 204 10*3/uL 150-450 [facility] Serum or plasma albumin messi urement (mass/volume)Ordered By: Nadia Fisher on 10-14-2023 Albumin [Mass/Vol] 3.5 g/dL 3.2-5.0 [facility] Serum or plasma albumin/glob ulin mass ratioOrdered By: Nadia Fisher on 10-14-2023 Albumin/Globulin [Mass ratio] 1.1 {ratio} 0.9-2.4 [facility] Serum or plasma calcium messi urement (mass/volume)Ordered By: Nadia Fisher on 10-14-2023 Calcium [Mass/Vol] 8.6 mg/dL 8.5-10.1 [facility] Serum or plasma creatinine m easurement (mass/volume)Ordered By: Nadia Fisher on 10-14-2023 Creatinine [Mass/Vol] 0.96 mg/dL 0.70-1.30 [facility] Comment on above: The validity of the calculated GFR & GFRAA in patients over 70 years has not been determined. Clinical correlation is essential. Serum or plasma urea nitroge n measurement (mass/volume)Ordered By: Nadia Fisher on 10-14-2023 Urea nitrogen [Mass/Vol] 13 mg/dL 7-18 [facility] Thin prep Papanicolaou smear with manual screeningOrdered By: Nadia Fisher on 10-14-2023 Thin prep Papanicolaou smear with manual screening 33 U/L 15-37 [facility] Thin prep Papanicolaou smear with manual screening 5 5-15 [facility] Absolute lymphocyte countOrd ered By: Nadia Fisher on 07-01-2023 Lymphocytes Auto (Unsp spec) [#/Vol] 1.75 10*3/uL 0.83-4.51 [facility] Basophil percentageOrdered B y: Nadia Fisher on 07-01-2023 Basophils/100 WBC (Bld) 0.3 % 0-1 [facility] Eosinophils/100 WBC (Bld) 3.8 % 0-5 [facility] Neutrophils (Bld) [#/Vol] 3.2 10*3/uL 2.0-7.7 [facility] Neutrophils/100 WBC (Bld) 55.4 % 47-70 [facility] WBC (Bld) [#/Vol] 5.8 10*3/uL 4.4-11.0 [facility] Blood erythrocytes count (nu mber/volume)Ordered By: Nadia Fisher on 07-01-2023 RBC (Bld) [#/Vol] 4.49 10*6/uL 4.6-6.2 [facility] Blood hemoglobin measurement (mass/volume)Ordered By: Nadia Fisher on 07-01-2023 Hemoglobin (Bld) [Mass/Vol] 13.3 g/dL 13.0-16.5 [facility] Blood lymphocytes/100 leukoc ytesOrdered By: Nadia Fisher on 07-01-2023 Lymphocytes/100 WBC (Bld) 30.2 % 19-41 [facility] Blood monocytes/100 leukocyt esOrdered By: Nadia Fisher on 07-01-2023 Monocytes/100 WBC (Bld) 9.8 % 0-10 [facility] Blood platelet mean volumeOr dered By: Nadia Fisher on 07-01-2023 Platelet mean volume (Bld) [Entitic vol] 9.2 fL 6.2-12.0 [facility] Determination of erythrocyte mean corpuscular volume (MCV)Ordered By: Nadia Fisher on 07-01-2023 MCV (RBC) [Entitic vol] 90.9 fL 80-94 [facility] Hematocrit Auto (Bld) [Volum e fraction]Ordered By: Nadia Fisher on 07-01-2023 Hematocrit (Bld) [Volume fraction] 40.8 % 40-54 [facility] - Hematology and Cell countsOrdered By: Nadia Fisher on 07-01-2023 Erythrocyte distribution width (RBC) [Entitic vol] 46.5 fL 35.1-43.9 [facility] Erythrocyte distribution width (RBC) [Ratio] 14.1 % 11.6-14.6 [facility] Immature granulocytes/100 WBC (Bld) 0.500 % 0.0-0.9 [facility] Comment on above: IG% - Immature Granu locytes (promyelocytes, myelocytes and metamyelocytes) > 1% indicates that a LEFT SHIFT is Present. MCH (RBC) [Entitic mass] 29.6 pg 27.0-32.0 [facility] Nucleated RBC/100 WBC (Bld) [Ratio] 0 % 0-5 [facility] MCHC Auto (RBC) [Mass/Vol]Or dered By: Nadia Fisher on 07-01-2023 MCHC (RBC) [Mass/Vol] 32.6 g/dL 32-36 [facility] Platelets bldOrdered By: Marlo Fisher on 07-01-2023 Platelets (Bld) [#/Vol] 181 10*3/uL 150-450 [facility] Absolute lymphocyte countOrd ered By: Nadia Fisher on 06-10-2023 Lymphocytes Auto (Unsp spec) [#/Vol] 2.45 10*3/uL 0.83-4.51 [facility] Basophil percentageOrdered B y: Nadia Fisher on 06-10-2023 Basophils/100 WBC (Bld) 0.6 % 0-1 [facility] Bilirubin [Mass/Vol] 0.30 mg/dL 0.20-1.00 [facility] Comment on above: For patients on eltr ombopag therapy, use of Dimension [place] TBIL is not recommended. Chloride [Moles/Vol] 102 mmol/L 98-107 [facility] Cholesterol [Mass/Vol] 187 mg/dL <200 [facility] Comment on above: <200 mg/dL Desirable 200-240 mg/dL Borderline >240 mg/dL High Risk Eosinophils/100 WBC (Bld) 3.6 % 0-5 [facility] Glucose [Mass/Vol] 89 mg/dL 74-106 [facility] Neutrophils (Bld) [#/Vol] 3.8 10*3/uL 2.0-7.7 [facility] Neutrophils/100 WBC (Bld) 52.4 % 47-70 [facility] Potassium [Moles/Vol] 4.1 mmol/L 3.5-5.1 [facility] Protein [Mass/Vol] 6.8 g/dL 6.4-8.2 [facility] Sodium [Moles/Vol] 138 mmol/L 136-145 [facility] Triglyceride [Mass/Vol] 213 mg/dL <199 [facility] Comment on above: The drugs N-Acetylcy steine and Metamizole may falsely depress this assay.Serum Triglycerides Reference Interval Normal <150 mg/dL Borderline high 150 - 199 mg/dL High 200 - 499 mg/dL Very High > or = 500 mg/dL WBC (Bld) [#/Vol] 7.3 10*3/uL 4.4-11.0 [facility] Blood erythrocytes count (nu mber/volume)Ordered By: Nadia Fisher on 06-10-2023 RBC (Bld) [#/Vol] 4.56 10*6/uL 4.6-6.2 [facility] Blood hemoglobin measurement (mass/volume)Ordered By: Nadia Fisher on 06-10-2023 Hemoglobin (Bld) [Mass/Vol] 13.6 g/dL 13.0-16.5 [facility] Blood lymphocytes/100 leukoc ytesOrdered By: Nadia Fisher on 06-10-2023 Lymphocytes/100 WBC (Bld) 33.8 % 19-41 [facility] Blood monocytes/100 leukocyt esOrdered By: Nadia Fisher on 06-10-2023 Monocytes/100 WBC (Bld) 8.8 % 0-10 [facility] Blood platelet mean volumeOr dered By: Nadia Fisher on 06-10-2023 Platelet mean volume (Bld) [Entitic vol] 9.4 fL 6.2-12.0 [facility] Determination of erythrocyte mean corpuscular volume (MCV)Ordered By: Nadia Fisher on 06-10-2023 MCV (RBC) [Entitic vol] 89.3 fL 80-94 [facility] Hematocrit Auto (Bld) [Volum e fraction]Ordered By: Nadia Fisher on 06-10-2023 Hematocrit (Bld) [Volume fraction] 40.7 % 40-54 [facility] - Chemistry and C hemistry - challengeOrdered By: Nadianarendra Fisher on 06-10-2023 ALP [Catalytic activity/Vol] 76 U/L 45-117 [facility] ALT [Catalytic activity/Vol] 28 U/L 16-61 [facility] CO2 [Moles/Vol] 32.0 mmol/L 21.0-32.0 [facility] Globulin (S) [Mass/Vol] 3.3 g/dL 2.2-4.2 [facility] Urea nitrogen/Creatinine [Mass ratio] 16.3 mg/mg 10-20 [facility] - Hematology and Cell countsOrdered By: Nadia Fisher on 06-10-2023 Erythrocyte distribution width (RBC) [Entitic vol] 46.7 fL 35.1-43.9 [facility] Erythrocyte distribution width (RBC) [Ratio] 14.5 % 11.6-14.6 [facility] Immature granulocytes/100 WBC (Bld) 0.800 % 0.0-0.9 [facility] Comment on above: IG% - Immature Granu locytes (promyelocytes, myelocytes and metamyelocytes) > 1% indicates that a LEFT SHIFT is Present. MCH (RBC) [Entitic mass] 29.8 pg 27.0-32.0 [facility] Nucleated RBC/100 WBC (Bld) [Ratio] 0 % 0-5 [facility] MCHC Auto (RBC) [Mass/Vol]Or dered By: Nadia Fisher on 06-10-2023 MCHC (RBC) [Mass/Vol] 33.4 g/dL 32-36 [facility] No Panel InformationOrdered By: Nadia Fisher on 06-10-2023 Estimated GFR (MDRD) Amer 114 mL/min >60 [facility] Comment on above: GFR Calc Estimated GFR (MDRD) Non-Af Amer 94 mL/min >60 [facility] Comment on above: Non- GFR Calc Thyroid Stimulating Hormone (TSH) 1.20 uIU/mL 0.358-3.74 [facility] Platelets bldOrdered By: Marlo Fisher on 06-10-2023 Platelets (Bld) [#/Vol] 193 10*3/uL 150-450 [facility] Serum or plasma albumin messi urement (mass/volume)Ordered By: Nadia Fisher on 06-10-2023 Albumin [Mass/Vol] 3.5 g/dL 3.2-5.0 [facility] Serum or plasma albumin/glob ulin mass ratioOrdered By: Nadia Fisher on 06-10-2023 Albumin/Globulin [Mass ratio] 1.1 {ratio} 0.9-2.4 [facility] Serum or plasma calcium messi urement (mass/volume)Ordered By: Nadia Fisher on 06-10-2023 Calcium [Mass/Vol] 8.5 mg/dL 8.5-10.1 [facility] Serum or plasma cholesterol in HDL measurement (mass/volume)Ordered By: Nadia Fisher on 06-10-2023 Cholesterol in HDL [Mass/Vol] 45 mg/dL >40 [facility] Comment on above: The drugs N-Acetylcy steine and Metamizole may falsely depress this assay. Reference Range HDL <40 mg/dL Low HDL Cholesterol HDL >or= 60 mg/dL High HDL Cholesterol Serum or plasma cholesterol in VLDL measurement (mass/volume)Ordered By: Nadia Fisher on 06-10-2023 Cholesterol in VLDL [Mass/Vol] 43 mg/dL 5-40 [facility] Serum or plasma creatinine m easurement (mass/volume)Ordered By: Nadia Fisher on 06-10-2023 Creatinine [Mass/Vol] 0.86 mg/dL 0.70-1.30 [facility] Comment on above: The validity of the calculated GFR & GFRAA in patients over 70 years has not been determined. Clinical correlation is essential. Serum or plasma low density lipoprotein (LDL) cholesterol measurement (mass/volume)Ordered By: Nadia Fisher on 06-10-2023 Cholesterol in LDL [Mass/Vol] 99 mg/dL 0-130 [facility] Serum or plasma urea nitroge n measurement (mass/volume)Ordered By: Nadia Fisher on 06-10-2023 Urea nitrogen [Mass/Vol] 14 mg/dL 7-18 [facility] Thin prep Papanicolaou smear with manual screeningOrdered By: Nadia Fisher on 06-10-2023 Thin prep Papanicolaou smear with manual screening 29 U/L 15-37 [facility] Thin prep Papanicolaou smear with manual screening 4 5-15 [facility] Whole blood hemoglobin A1c/t otal hemoglobin ratio (mass fraction)Ordered By: Nadia Fisher on 06-10-2023 HbA1c (Bld) [Mass fraction] 5.3 % 3.8-5.6 [facility] Comment on above: Normal < 5.7 % Predi abetic 5.7 - 6.4 % Diabetic >or= 6.5 % Please note range changes. Basophil percentageOrdered B y: Paul Castellanosbridger on 04-11-2023 Bilirubin [Mass/Vol] 0.30 mg/dL 0.20-1.00 [facility] Comment on above: For patients on eltr ombopag therapy, use of Dimension [place] TBIL is not recommended. Chloride [Moles/Vol] 101 mmol/L 98-107 [facility] Glucose [Mass/Vol] 90 mg/dL 74-106 [facility] Potassium [Moles/Vol] 4.0 mmol/L 3.5-5.1 [facility] Protein [Mass/Vol] 6.7 g/dL 6.4-8.2 [facility] Sodium [Moles/Vol] 137 mmol/L 136-145 [facility] WBC (Bld) [#/Vol] 6.7 10*3/uL 4.4-11.0 [facility] Blood erythrocytes count (nu mber/volume)Ordered By: Paul Connor on 04-11-2023 RBC (Bld) [#/Vol] 4.80 10*6/uL 4.6-6.2 [facility] Blood hemoglobin measurement (mass/volume)Ordered By: Paul Connor on 04-11-2023 Hemoglobin (Bld) [Mass/Vol] 13.6 g/dL 13.0-16.5 [facility] Blood platelet mean volumeOr dered By: Pauljesse Connor on 04-11-2023 Platelet mean volume (Bld) [Entitic vol] 9.4 fL 6.2-12.0 [facility] Determination of erythrocyte mean corpuscular volume (MCV)Ordered By: Paul Connor on 04-11-2023 MCV (RBC) [Entitic vol] 88.5 fL 80-94 [facility] Hematocrit Auto (Bld) [Volum e fraction]Ordered By: Pauljesse Connor on 04-11-2023 Hematocrit (Bld) [Volume fraction] 42.5 % 40-54 [facility] - Chemistry and C hemistry - challengeOrdered By: Paul Connor on 04-11-2023 ALP [Catalytic activity/Vol] 77 U/L 45-117 [facility] ALT [Catalytic activity/Vol] 23 U/L 16-61 [facility] CO2 [Moles/Vol] 28.0 mmol/L 21.0-32.0 [facility] Cobalamin (Vitamin B12) [Mass/Vol] 514 pg/mL 211-911 [facility] Free T4 [Mass/Vol] 0.86 ng/dL 0.76-1.46 [facility] Globulin (S) [Mass/Vol] 3.2 g/dL 2.2-4.2 [facility] Urea nitrogen/Creatinine [Mass ratio] 20.1 mg/mg 10-20 [facility] - Hematology and Cell countsOrdered By: Paul Connor on 04-11-2023 Erythrocyte distribution width (RBC) [Entitic vol] 44.9 fL 35.1-43.9 [facility] Erythrocyte distribution width (RBC) [Ratio] 13.8 % 11.6-14.6 [facility] MCH (RBC) [Entitic mass] 28.3 pg 27.0-32.0 [facility] MCHC Auto (RBC) [Mass/Vol]Or dered By: Paul Connor on 04-11-2023 MCHC (RBC) [Mass/Vol] 32.0 g/dL 32-36 [facility] No Panel InformationOrdered By: Paul Connor on 04-11-2023 Estimated GFR (MDRD) Amer 109 mL/min >60 [facility] Comment on above: GFR Calc Estimated GFR (MDRD) Non-Af Amer 90 mL/min >60 [facility] Comment on above: Non- GFR Calc Thyroid Stimulating Hormone (TSH) 0.59 uIU/mL 0.358-3.74 [facility] Vitamin D 25-Hydroxy 33.3 ng/mL [facility] Comment on above: Vitamin D 25(OH) Sta tus Range Deficiency <20 ng/mL (50nmol/L) Insufficiency 20 - 30 ng/mL (50 - 75 nmol/L) Sufficiency 30 - 100 ng/mL (75 - 250 nmol/L) Toxicity >100 ng/mL (>250 nmol/L) Whole Blood Vitamin B1 Level 105.7 nmol/L 66.5-200.0 [facility] Comment on above: Performed at: - [address] [id number] Director: Leida Sargent MD, Phone: [phone] Platelets bldOrdered By: Darion Connor on 04-11-2023 Platelets (Bld) [#/Vol] 203 10*3/uL 150-450 [facility] Serum or plasma albumin messi urement (mass/volume)Ordered By: Paul Connor on 04-11-2023 Albumin [Mass/Vol] 3.5 g/dL 3.2-5.0 [facility] Serum or plasma albumin/glob ulin mass ratioOrdered By: Paul Connor on 04-11-2023 Albumin/Globulin [Mass ratio] 1.1 {ratio} 0.9-2.4 [facility] Serum or plasma calcium messi urement (mass/volume)Ordered By: Paul Connor on 04-11-2023 Calcium [Mass/Vol] 8.7 mg/dL 8.5-10.1 [facility] Serum or plasma creatinine m easurement (mass/volume)Ordered By: Paul Connor on 04-11-2023 Creatinine [Mass/Vol] 0.90 mg/dL 0.70-1.30 [facility] Comment on above: The validity of the calculated GFR & GFRAA in patients over 70 years has not been determined. Clinical correlation is essential. Serum or plasma folate measu rement (mass/volume)Ordered By: Pauljesse Connor on 04-11-2023 Folate [Mass/Vol] 6.70 ng/mL 3.1-55.4 [facility] Serum or plasma urea nitroge n measurement (mass/volume)Ordered By: Pauljesse Connor on 04-11-2023 Urea nitrogen [Mass/Vol] 18 mg/dL 7-18 [facility] Thin prep Papanicolaou smear with manual screeningOrdered By: Paul Connor on 04-11-2023 Thin prep Papanicolaou smear with manual screening 24 U/L 15-37 [facility] Thin prep Papanicolaou smear with manual screening 8 5-15 [facility] No Panel InformationOrdered By: Nadia Fisher on 04-03-2023 Thyroid Stimulating Hormone (TSH) 1.65 uIU/mL 0.358-3.74 [facility] UA DIP, URINE (POC)on 2022 BILIRUBIN UA (POCT) Negative Negative [facility] CLARITY UA (POCT) Clear [facility] COLOR UA (POCT) Yellow [facility] GLUCOSE UA (POCT) Negative Negative mg/dL [facility] HEMOGLOBIN/BLOOD UA (POCT) Negative Negative [facility] KETONE UA (POCT) Negative Negative mg/dL [facility] LEUKOCYTES UA (POCT) Negative Negative [facility] NITRITE UA (POCT) Negative Negative [facility] PH UA (POCT) 5.5 4.5 - 8.0 [facility] Protein Ql (U) Negative Negative mg/dL [facility] SPECIFIC GRAVITY UA (POCT) 1.015 1.005 - 1.030 [facility] UROBILINOGEN UA (POCT) 0.2 E.U./dL Irish l E.U./dL [facility] Basophil percentageOrdered B y: Dr. Fisher on 02-11-2023 Chloride [Moles/Vol] 105 mmol/L 98-107 [facility] Glucose [Mass/Vol] 90 mg/dL 74-106 [facility] Potassium [Moles/Vol] 4.3 mmol/L 3.5-5.1 [facility] Sodium [Moles/Vol] 142 mmol/L 136-145 [facility] Culture, urineOrdered By: Dr Job Fisher on 02-11-2023 Bacteria identified Cx Nom (U) Klebsiella pneumoniae sp pneum [facility] - Chemistry and C hemistry - challengeOrdered By: Dr. Fisher on 02-11-2023 CO2 [Moles/Vol] 30.0 mmol/L 21.0-32.0 [facility] Urea nitrogen/Creatinine [Mass ratio] 16.3 mg/mg 10-20 [facility] No Panel InformationOrdered By: Dr. Fisher on 02-11-2023 Estimated GFR (MDRD) Amer 114 mL/min >60 [facility] Comment on above: GFR Calc Estimated GFR (MDRD) Non-Af Amer 95 mL/min >60 [facility] Comment on above: Non- GFR Calc Serum or plasma calcium mesis urement (mass/volume)Ordered By: Dr. Fisher on 02-11-2023 Calcium [Mass/Vol] 8.9 mg/dL 8.5-10.1 [facility] Serum or plasma creatinine m easurement (mass/volume)Ordered By: Dr. Fisher on 02-11-2023 Creatinine [Mass/Vol] 0.86 mg/dL 0.70-1.30 [facility] Comment on above: The validity of the calculated GFR & GFRAA in patients over 70 years has not been determined. Clinical correlation is essential. Serum or plasma urea nitroge n measurement (mass/volume)Ordered By: Dr. Fisher on 02-11-2023 Urea nitrogen [Mass/Vol] 14 mg/dL 7-18 [facility] Thin prep Papanicolaou smear with manual screeningOrdered By: Dr. Fisher on 02-11-2023 Thin prep Papanicolaou smear with manual screening 7 5-15 [facility] Basophil percentageOrdered B y: Dr. Fisher on 02-09-2023 Basophil percentage >100 SEEN /hpf 0-5 [facility] Comment on above: Microscopic field is filled. Other elements may be obscured. Bilirubin Test strip Ql (U)O rdered By: Dr. Fisher on 02-09-2023 Bilirubin Ql (U) Negative Negative [facility] Ketones Test strip Ql (U)Ord ered By: Dr. Fisher on 02-09-2023 Ketones Ql (U) 5 mg/dl Negative [facility] Mucus LM Ql (Urine sed)Order ed By: Dr. Fisher on 02-09-2023 Mucus Ql (Urine sed) 0 SEEN /hpf [facility] Nitrite Test strip Ql (U)Ord ered By: Dr. Fisher on 02-09-2023 Nitrite Ql (U) Negative Negative [facility] Protein Test strip Ql (U)Ord ered By: Dr. Fisher on 02-09-2023 Protein Ql (U) 100 mg/dl Negative [facility] Squamous epithelial cells de tection in urine sediment by light microscopyOrdered By: Dr. Fisher on 02-09-2023 Epithelial cells.squamous LM Ql (Urine sed) 0 SEEN /hpf 0-5 [facility] Urine blood detectionOrdered By: Dr. Fisher on 02-09-2023 RBC Ql (U) 150 /ul Negative [facility] RBC Ql (U) 10-25 SEEN /hpf 0-5 [facility] Urine clarityOrdered By: Dr. Fisher on 02-09-2023 Clarity (U) Turbid Clear [facility] Urine color determinationOrd ered By: Dr. Fisher on 02-09-2023 Color (U) Yellow Yellow [facility] Urine glucose detectionOrder ed By: Dr. Fisher on 02-09-2023 Glucose Ql (U) Normal mg/dl Normal [facility] Urine leukocyte esterase det ection by dipstickOrdered By: Dr. Fisher on 02-09-2023 Leukocyte esterase Test strip Ql (U) 500 /ul Negative [facility] Urine pHOrdered By: Dr. Melanie rios on 02-09-2023 pH (U) 6.5 [pH] 5.0 - 8.0 [facility] Urine sediment bacteria coun t by microscopy (number/high power field)Ordered By: Dr. Fisher on 02-09-2023 Bacteria LM.HPF (Urine sed) [#/Area] 4 /[HPF] None Seen [facility] Urine specific gravity measu rementOrdered By: Dr. Fisher on 02-09-2023 Specific gravity (U) [Rel density] 1.015 1.002-1.030 [facility] Urobilinogen Auto test strip Ql (U)Ordered By: Dr. Fisher on 02-09-2023 Urobilinogen Ql (U) Normal mg/dl Normal [facility] Culture, urineOrdered By: Dr Job Fisher on 01-17-2023 Bacteria identified Cx Nom (U) Klebsiella pneumoniae sp pneum [facility] Absolute lymphocyte countOrd ered By: Dr. Fisher on 01-14-2023 Lymphocytes Auto (Unsp spec) [#/Vol] 2.06 10*3/uL 0.83-4.51 [facility] Basophil percentageOrdered B y: Dr. Fisher on 01-14-2023 Basophils/100 WBC (Bld) 0.4 % 0-1 [facility] Eosinophils/100 WBC (Bld) 3.1 % 0-5 [facility] Neutrophils (Bld) [#/Vol] 5.4 10*3/uL 2.0-7.7 [facility] Neutrophils/100 WBC (Bld) 63.5 % 47-70 [facility] WBC (Bld) [#/Vol] 8.4 10*3/uL 4.4-11.0 [facility] Blood erythrocytes count (nu mber/volume)Ordered By: Dr. Fisher on 01-14-2023 RBC (Bld) [#/Vol] 4.61 10*6/uL 4.6-6.2 [facility] Blood hemoglobin measurement (mass/volume)Ordered By: Dr. Fisher on 01-14-2023 Hemoglobin (Bld) [Mass/Vol] 13.5 g/dL 13.0-16.5 [facility] Blood lymphocytes/100 leukoc ytesOrdered By: Dr. Fisher on 01-14-2023 Lymphocytes/100 WBC (Bld) 24.5 % 19-41 [facility] Blood monocytes/100 leukocyt esOrdered By: Dr. Fisher on 01-14-2023 Monocytes/100 WBC (Bld) 8.1 % 0-10 [facility] Blood platelet mean volumeOr dered By: Dr. Fisher on 01-14-2023 Platelet mean volume (Bld) [Entitic vol] 9.1 fL 6.2-12.0 [facility] Determination of erythrocyte mean corpuscular volume (MCV)Ordered By: Dr. Fisher on 01-14-2023 MCV (RBC) [Entitic vol] 92.4 fL 80-94 [facility] Hematocrit Auto (Bld) [Volum e fraction]Ordered By: Dr. Fisher on 01-14-2023 Hematocrit (Bld) [Volume fraction] 42.6 % 40-54 [facility] - Hematology and Cell countsOrdered By: Dr. Fisher on 01-14-2023 Erythrocyte distribution width (RBC) [Entitic vol] 47.6 fL 35.1-43.9 [facility] Erythrocyte distribution width (RBC) [Ratio] 14.1 % 11.6-14.6 [facility] Immature granulocytes/100 WBC (Bld) 0.400 % 0.0-0.9 [facility] Comment on above: IG% - Immature Granu locytes (promyelocytes, myelocytes and metamyelocytes) > 1% indicates that a LEFT SHIFT is Present. MCH (RBC) [Entitic mass] 29.3 pg 27.0-32.0 [facility] Nucleated RBC/100 WBC (Bld) [Ratio] 0 % 0-5 [facility] MCHC Auto (RBC) [Mass/Vol]Or dered By: Dr. Fisher on 01-14-2023 MCHC (RBC) [Mass/Vol] 31.7 g/dL 32-36 [facility] Platelets bldOrdered By: Dr. Fisher on 01-14-2023 Platelets (Bld) [#/Vol] 204 10*3/uL 150-450 [facility] Basophil percentageOrdered B y: Dr. Fisher on 01-11-2023 Basophil percentage >100 SEEN /hpf 0-5 [facility] Bilirubin Test strip Ql (U)O rdered By: Dr. Fisher on 01-11-2023 Bilirubin Ql (U) Negative Negative [facility] Ketones Test strip Ql (U)Ord ered By: Dr. Fisher on 01-11-2023 Ketones Ql (U) 5 mg/dl Negative [facility] Mucus LM Ql (Urine sed)Order ed By: Dr. Fisher on 01-11-2023 Mucus Ql (Urine sed) 0 SEEN /hpf [facility] Nitrite Test strip Ql (U)Ord ered By: Dr. Fisher on 01-11-2023 Nitrite Ql (U) Negative Negative [facility] Protein Test strip Ql (U)Ord ered By: Dr. Fisher on 01-11-2023 Protein Ql (U) 100 mg/dl Negative [facility] Squamous epithelial cells de tection in urine sediment by light microscopyOrdered By: Dr. Fisher on 01-11-2023 Epithelial cells.squamous LM Ql (Urine sed) 0 SEEN /hpf 0-5 [facility] Urine blood detectionOrdered By: Dr. Fisher on 01-11-2023 RBC Ql (U) 50 /ul Negative [facility] RBC Ql (U) 0 SEEN /hpf 0-5 [facility] Urine clarityOrdered By: Dr. Fisher on 01-11-2023 Clarity (U) Turbid Clear [facility] Urine color determinationOrd ered By: Dr. Fisher on 01-11-2023 Color (U) Yellow Yellow [facility] Urine glucose detectionOrder ed By: Dr. Fisher on 01-11-2023 Glucose Ql (U) Normal mg/dl Normal [facility] Urine leukocyte esterase det ection by dipstickOrdered By: Dr. Fisher on 01-11-2023 Leukocyte esterase Test strip Ql (U) 500 /ul Negative [facility] Urine pHOrdered By: Dr. Melanie rios on 01-11-2023 pH (U) 6.0 [pH] 5.0 - 8.0 [facility] Urine sediment bacteria coun t by microscopy (number/high power field)Ordered By: Dr. Fisher on 01-11-2023 Bacteria LM.HPF (Urine sed) [#/Area] 0 /[HPF] None Seen [facility] Urine specific gravity measu rementOrdered By: Dr. Fisher on 01-11-2023 Specific gravity (U) [Rel density] 1.015 1.002-1.030 [facility] Urobilinogen Auto test strip Ql (U)Ordered By: Dr. Fisher on 01-11-2023 Urobilinogen Ql (U) Normal mg/dl Normal [facility] Absolute lymphocyte countOrd ered By: Dr. Fisher on 11-13-2022 Lymphocytes Auto (Unsp spec) [#/Vol] 1.61 10*3/uL 0.83-4.51 [facility] Basophil percentageOrdered B y: Dr. Fisher on 11-13-2022 Basophils/100 WBC (Bld) 0.6 % 0-1 [facility] Chloride [Moles/Vol] 106 mmol/L 98-107 [facility] Eosinophils/100 WBC (Bld) 3.6 % 0-5 [facility] Glucose [Mass/Vol] 100 mg/dL 74-106 [facility] Comment on above: Fasting Glucose resu lt from 100 to 125 mg/dL suggests IMPAIRED HOMEOSTASIS per A.D.A. criteria. Neutrophils (Bld) [#/Vol] 4.2 10*3/uL 2.0-7.7 [facility] Neutrophils/100 WBC (Bld) 62.8 % 47-70 [facility] Potassium [Moles/Vol] 4.4 mmol/L 3.5-5.1 [facility] Sodium [Moles/Vol] 139 mmol/L 136-145 [facility] WBC (Bld) [#/Vol] 6.6 10*3/uL 4.4-11.0 [facility] Blood erythrocytes count (nu mber/volume)Ordered By: Dr. Fisher on 11-13-2022 RBC (Bld) [#/Vol] 4.18 10*6/uL 4.6-6.2 [facility] Blood hemoglobin measurement (mass/volume)Ordered By: Dr. Fisher on 11-13-2022 Hemoglobin (Bld) [Mass/Vol] 12.1 g/dL 13.0-16.5 [facility] Blood lymphocytes/100 leukoc ytesOrdered By: Dr. Fisher on 11-13-2022 Lymphocytes/100 WBC (Bld) 24.2 % 19-41 [facility] Blood monocytes/100 leukocyt esOrdered By: Dr. Fisher on 11-13-2022 Monocytes/100 WBC (Bld) 8.3 % 0-10 [facility] Blood platelet mean volumeOr dered By: Dr. Fisher on 11-13-2022 Platelet mean volume (Bld) [Entitic vol] 9.6 fL 6.2-12.0 [facility] Determination of erythrocyte mean corpuscular volume (MCV)Ordered By: Dr. Fisher on 11-13-2022 MCV (RBC) [Entitic vol] 90.4 fL 80-94 [facility] Hematocrit Auto (Bld) [Volum e fraction]Ordered By: Dr. Fisher on 11-13-2022 Hematocrit (Bld) [Volume fraction] 37.8 % 40-54 [facility] - Chemistry and C hemistry - challengeOrdered By: Dr. Fisher on 11-13-2022 CO2 [Moles/Vol] 29.0 mmol/L 21.0-32.0 [facility] Urea nitrogen/Creatinine [Mass ratio] 20.1 mg/mg 10-20 [facility] - Hematology and Cell countsOrdered By: Dr. Fisher on 11-13-2022 Erythrocyte distribution width (RBC) [Entitic vol] 48.8 fL 35.1-43.9 [facility] Erythrocyte distribution width (RBC) [Ratio] 14.8 % 11.6-14.6 [facility] Immature granulocytes/100 WBC (Bld) 0.500 % 0.0-0.9 [facility] Comment on above: IG% - Immature Granu locytes (promyelocytes, myelocytes and metamyelocytes) > 1% indicates that a LEFT SHIFT is Present. MCH (RBC) [Entitic mass] 28.9 pg 27.0-32.0 [facility] Nucleated RBC/100 WBC (Bld) [Ratio] 0 % 0-5 [facility] MCHC Auto (RBC) [Mass/Vol]Or dered By: Dr. Fisher on 11-13-2022 MCHC (RBC) [Mass/Vol] 32.0 g/dL 32-36 [facility] No Panel InformationOrdered By: Dr. Fisher on 11-13-2022 Estimated GFR (MDRD) Amer 102 mL/min >60 [facility] Comment on above: GFR Calc Estimated GFR (MDRD) Non-Af Amer 84 mL/min >60 [facility] Comment on above: Non- GFR Calc Platelets bldOrdered By: Dr. Fisher on 11-13-2022 Platelets (Bld) [#/Vol] 192 10*3/uL 150-450 [facility] Serum or plasma calcium messi urement (mass/volume)Ordered By: Dr. Fisher on 11-13-2022 Calcium [Mass/Vol] 9.1 mg/dL 8.5-10.1 [facility] Serum or plasma creatinine m easurement (mass/volume)Ordered By: Dr. Fisher on 11-13-2022 Creatinine [Mass/Vol] 0.95 mg/dL 0.70-1.30 [facility] Comment on above: The validity of the calculated GFR & GFRAA in patients over 70 years has not been determined. Clinical correlation is essential. Serum or plasma urea nitroge n measurement (mass/volume)Ordered By: Dr. Fisher on 11-13-2022 Urea nitrogen [Mass/Vol] 19 mg/dL 7-18 [facility] Thin prep Papanicolaou smear with manual screeningOrdered By: Dr. Fisher on 11-13-2022 Thin prep Papanicolaou smear with manual screening 4 5-15 [facility] Absolute lymphocyte countOrd ered By: Dr. Fisher on 11-06-2022 Lymphocytes Auto (Unsp spec) [#/Vol] 1.47 10*3/uL 0.83-4.51 [facility] Basophil percentageOrdered B y: Dr. Fisher on 11-06-2022 Basophils/100 WBC (Bld) 0.4 % 0-1 [facility] Chloride [Moles/Vol] 105 mmol/L 98-107 [facility] Eosinophils/100 WBC (Bld) 2.7 % 0-5 [facility] Glucose [Mass/Vol] 119 mg/dL 74-106 [facility] Comment on above: Fasting Glucose resu lt from 100 to 125 mg/dL suggests IMPAIRED HOMEOSTASIS per A.D.A. criteria. Neutrophils (Bld) [#/Vol] 4.7 10*3/uL 2.0-7.7 [facility] Neutrophils/100 WBC (Bld) 66.9 % 47-70 [facility] Potassium [Moles/Vol] 4.0 mmol/L 3.5-5.1 [facility] Sodium [Moles/Vol] 137 mmol/L 136-145 [facility] WBC (Bld) [#/Vol] 7.0 10*3/uL 4.4-11.0 [facility] Blood erythrocytes count (nu mber/volume)Ordered By: Dr. Fisher on 11-06-2022 RBC (Bld) [#/Vol] 4.37 10*6/uL 4.6-6.2 [facility] Blood hemoglobin measurement (mass/volume)Ordered By: Dr. Fisher on 11-06-2022 Hemoglobin (Bld) [Mass/Vol] 12.8 g/dL 13.0-16.5 [facility] Blood lymphocytes/100 leukoc ytesOrdered By: Dr. Fisher on 11-06-2022 Lymphocytes/100 WBC (Bld) 21.1 % 19-41 [facility] Blood monocytes/100 leukocyt esOrdered By: Dr. Fisher on 11-06-2022 Monocytes/100 WBC (Bld) 8.6 % 0-10 [facility] Blood platelet mean volumeOr dered By: Dr. Fisher on 11-06-2022 Platelet mean volume (Bld) [Entitic vol] 9.8 fL 6.2-12.0 [facility] Determination of erythrocyte mean corpuscular volume (MCV)Ordered By: Dr. Fisher on 11-06-2022 MCV (RBC) [Entitic vol] 89.9 fL 80-94 [facility] Hematocrit Auto (Bld) [Volum e fraction]Ordered By: Dr. Fisher on 11-06-2022 Hematocrit (Bld) [Volume fraction] 39.3 % 40-54 [facility] - Chemistry and C hemistry - challengeOrdered By: Dr. Fisher on 11-06-2022 CO2 [Moles/Vol] 28.0 mmol/L 21.0-32.0 [facility] Urea nitrogen/Creatinine [Mass ratio] 18.6 mg/mg 10-20 [facility] - Hematology and Cell countsOrdered By: Dr. Fisher on 11-06-2022 Erythrocyte distribution width (RBC) [Entitic vol] 46.9 fL 35.1-43.9 [facility] Erythrocyte distribution width (RBC) [Ratio] 14.6 % 11.6-14.6 [facility] Immature granulocytes/100 WBC (Bld) 0.300 % 0.0-0.9 [facility] Comment on above: IG% - Immature Granu locytes (promyelocytes, myelocytes and metamyelocytes) > 1% indicates that a LEFT SHIFT is Present. MCH (RBC) [Entitic mass] 29.3 pg 27.0-32.0 [facility] Nucleated RBC/100 WBC (Bld) [Ratio] 0 % 0-5 [facility] MCHC Auto (RBC) [Mass/Vol]Or dered By: Dr. Fisher on 11-06-2022 MCHC (RBC) [Mass/Vol] 32.6 g/dL 32-36 [facility] No Panel InformationOrdered By: Dr. Fisher on 11-06-2022 Estimated GFR (MDRD) Amer 94 mL/min >60 [facility] Comment on above: GFR Calc Estimated GFR (MDRD) Non-Af Amer 77 mL/min >60 [facility] Comment on above: Non- GFR Calc Platelets bldOrdered By: Dr. Fisher on 11-06-2022 Platelets (Bld) [#/Vol] 208 10*3/uL 150-450 [facility] Serum or plasma calcium messi urement (mass/volume)Ordered By: Dr. Fisher on 11-06-2022 Calcium [Mass/Vol] 9.2 mg/dL 8.5-10.1 [facility] Serum or plasma creatinine m easurement (mass/volume)Ordered By: Dr. Fisher on 11-06-2022 Creatinine [Mass/Vol] 1.02 mg/dL 0.70-1.30 [facility] Comment on above: The validity of the calculated GFR & GFRAA in patients over 70 years has not been determined. Clinical correlation is essential. Serum or plasma urea nitroge n measurement (mass/volume)Ordered By: Dr. Fisher on 11-06-2022 Urea nitrogen [Mass/Vol] 19 mg/dL 7-18 [facility] Thin prep Papanicolaou smear with manual screeningOrdered By: Dr. Fisher on 11-06-2022 Thin prep Papanicolaou smear with manual screening 4 5-15 [facility] Absolute lymphocyte countOrd ered By: Dr. Fisher on 10-30-2022 Lymphocytes Auto (Unsp spec) [#/Vol] 1.94 10*3/uL 0.83-4.51 [facility] Basophil percentageOrdered B y: Dr. Fisher on 10-30-2022 Basophils/100 WBC (Bld) 0.5 % 0-1 [facility] Chloride [Moles/Vol] 105 mmol/L 98-107 [facility] Eosinophils/100 WBC (Bld) 2.3 % 0-5 [facility] Glucose [Mass/Vol] 102 mg/dL 74-106 [facility] Comment on above: Fasting Glucose resu lt from 100 to 125 mg/dL suggests IMPAIRED HOMEOSTASIS per A.D.A. criteria. Neutrophils (Bld) [#/Vol] 4.7 10*3/uL 2.0-7.7 [facility] Neutrophils/100 WBC (Bld) 62.7 % 47-70 [facility] Potassium [Moles/Vol] 4.2 mmol/L 3.5-5.1 [facility] Sodium [Moles/Vol] 140 mmol/L 136-145 [facility] WBC (Bld) [#/Vol] 7.5 10*3/uL 4.4-11.0 [facility] Blood erythrocytes count (nu mber/volume)Ordered By: Dr. Fisher on 10-30-2022 RBC (Bld) [#/Vol] 4.10 10*6/uL 4.6-6.2 [facility] Blood hemoglobin measurement (mass/volume)Ordered By: Dr. Fisher on 10-30-2022 Hemoglobin (Bld) [Mass/Vol] 12.3 g/dL 13.0-16.5 [facility] Blood lymphocytes/100 leukoc ytesOrdered By: Dr. Fisher on 10-30-2022 Lymphocytes/100 WBC (Bld) 25.8 % 19-41 [facility] Blood monocytes/100 leukocyt esOrdered By: Dr. Fisher on 10-30-2022 Monocytes/100 WBC (Bld) 8.4 % 0-10 [facility] Blood platelet mean volumeOr dered By: Dr. Fisher on 10-30-2022 Platelet mean volume (Bld) [Entitic vol] 9.6 fL 6.2-12.0 [facility] Determination of erythrocyte mean corpuscular volume (MCV)Ordered By: Dr. Fisher on 10-30-2022 MCV (RBC) [Entitic vol] 90.2 fL 80-94 [facility] Hematocrit Auto (Bld) [Volum e fraction]Ordered By: Dr. Fisher on 10-30-2022 Hematocrit (Bld) [Volume fraction] 37.0 % 40-54 [facility] - Chemistry and C hemistry - challengeOrdered By: Dr. Fisher on 10-30-2022 CO2 [Moles/Vol] 31.0 mmol/L 21.0-32.0 [facility] Urea nitrogen/Creatinine [Mass ratio] 21.1 mg/mg 10-20 [facility] - Hematology and Cell countsOrdered By: Dr. Fisher on 10-30-2022 Erythrocyte distribution width (RBC) [Entitic vol] 49.1 fL 35.1-43.9 [facility] Erythrocyte distribution width (RBC) [Ratio] 14.6 % 11.6-14.6 [facility] Immature granulocytes/100 WBC (Bld) 0.300 % 0.0-0.9 [facility] Comment on above: IG% - Immature Granu locytes (promyelocytes, myelocytes and metamyelocytes) > 1% indicates that a LEFT SHIFT is Present. MCH (RBC) [Entitic mass] 30.0 pg 27.0-32.0 [facility] Nucleated RBC/100 WBC (Bld) [Ratio] 0 % 0-5 [facility] MCHC Auto (RBC) [Mass/Vol]Or dered By: Dr. Fisher on 10-30-2022 MCHC (RBC) [Mass/Vol] 33.2 g/dL 32-36 [facility] No Panel InformationOrdered By: Dr. Fisher on 10-30-2022 Estimated GFR (MDRD) Amer 96 mL/min >60 [facility] [facility] Comment on above: GFR Calc Estimated GFR (MDRD) Non-Af Amer 80 mL/min >60 [facility] Comment on above: Non- GFR Calc Platelets bldOrdered By: Dr. Fisher on 10-30-2022 Platelets (Bld) [#/Vol] 202 10*3/uL 150-450 [facility] Serum or plasma calcium messi urement (mass/volume)Ordered By: Dr. Fisher on 10-30-2022 Calcium [Mass/Vol] 9.2 mg/dL 8.5-10.1 [facility] Serum or plasma creatinine m easurement (mass/volume)Ordered By: Dr. Fisher on 10-30-2022 Creatinine [Mass/Vol] 1.00 mg/dL 0.70-1.30 [facility] Comment on above: The validity of the calculated GFR & GFRAA in patients over 70 years has not been determined. Clinical correlation is essential. Serum or plasma urea nitroge n measurement (mass/volume)Ordered By: Dr. Fisher on 10-30-2022 Urea nitrogen [Mass/Vol] 21 mg/dL 7-18 [facility] Thin prep Papanicolaou smear with manual screeningOrdered By: Dr. Fisher on 10-30-2022 Thin prep Papanicolaou smear with manual screening 4 5-15 [facility] Absolute lymphocyte countOrd ered By: Dr. Fisher on 10-23-2022 Lymphocytes Auto (Unsp spec) [#/Vol] 1.67 10*3/uL 0.83-4.51 [facility] Basophil percentageOrdered B y: Dr. Fsiher on 10-23-2022 Basophils/100 WBC (Bld) 0.3 % 0-1 [facility] Chloride [Moles/Vol] 102 mmol/L 98-107 [facility] Eosinophils/100 WBC (Bld) 2.6 % 0-5 [facility] Glucose [Mass/Vol] 91 mg/dL 74-106 [facility] Neutrophils (Bld) [#/Vol] 4.4 10*3/uL 2.0-7.7 [facility] Neutrophils/100 WBC (Bld) 63.8 % 47-70 [facility] Potassium [Moles/Vol] 4.1 mmol/L 3.5-5.1 [facility] Sodium [Moles/Vol] 138 mmol/L 136-145 [facility] WBC (Bld) [#/Vol] 6.9 10*3/uL 4.4-11.0 [facility] Blood erythrocytes count (nu mber/volume)Ordered By: Dr. Fisher on 10-23-2022 RBC (Bld) [#/Vol] 4.39 10*6/uL 4.6-6.2 [facility] Blood hemoglobin measurement (mass/volume)Ordered By: Dr. Fisher on 10-23-2022 Hemoglobin (Bld) [Mass/Vol] 13.0 g/dL 13.0-16.5 [facility] Blood lymphocytes/100 leukoc ytesOrdered By: Dr. Fisher on 10-23-2022 Lymphocytes/100 WBC (Bld) 24.2 % 19-41 [facility] Blood monocytes/100 leukocyt esOrdered By: Dr. Fisher on 10-23-2022 Monocytes/100 WBC (Bld) 8.5 % 0-10 [facility] Blood platelet mean volumeOr dered By: Dr. Fisher on 10-23-2022 Platelet mean volume (Bld) [Entitic vol] 9.5 fL 6.2-12.0 [facility] Determination of erythrocyte mean corpuscular volume (MCV)Ordered By: Dr. Fisher on 10-23-2022 MCV (RBC) [Entitic vol] 89.7 fL 80-94 [facility] Hematocrit Auto (Bld) [Volum e fraction]Ordered By: Dr. Fisher on 10-23-2022 Hematocrit (Bld) [Volume fraction] 39.4 % 40-54 [facility] Laboratory - Chemistry and C hemistry - challengeOrdered By: Dr. Fisher on 10-23-2022 CO2 [Moles/Vol] 29.0 mmol/L 21.0-32.0 [facility] Urea nitrogen/Creatinine [Mass ratio] 20.0 mg/mg 10-20 [facility] Laboratory - Hematology and Cell countsOrdered By: Dr. Fisher on 10-23-2022 Erythrocyte distribution width (RBC) [Entitic vol] 46.4 fL 35.1-43.9 [facility] Erythrocyte distribution width (RBC) [Ratio] 14.4 % 11.6-14.6 [facility] Immature granulocytes/100 WBC (Bld) 0.600 % 0.0-0.9 [facility] Comment on above: IG% - Immature Granu locytes (promyelocytes, myelocytes and metamyelocytes) > 1% indicates that a LEFT SHIFT is Present. MCH (RBC) [Entitic mass] 29.6 pg 27.0-32.0 [facility] Nucleated RBC/100 WBC (Bld) [Ratio] 0 % 0-5 [facility] MCHC Auto (RBC) [Mass/Vol]Or dered By: Dr. Fisher on 10-23-2022 MCHC (RBC) [Mass/Vol] 33.0 g/dL 32-36 [facility] No Panel InformationOrdered By: Dr. Fisher on 10-23-2022 Estimated GFR (MDRD) Amer 91 mL/min >60 [facility] Comment on above: GFR Calc Estimated GFR (MDRD) Non-Af Amer 75 mL/min >60 [facility] Comment on above: Non- GFR Calc Platelets bldOrdered By: Dr. Fisher on 10-23-2022 Platelets (Bld) [#/Vol] 240 10*3/uL 150-450 [facility] Serum or plasma calcium messi urement (mass/volume)Ordered By: Dr. Fisher on 10-23-2022 Calcium [Mass/Vol] 8.8 mg/dL 8.5-10.1 [facility] Serum or plasma creatinine m easurement (mass/volume)Ordered By: Dr. Fisher on 10-23-2022 Creatinine [Mass/Vol] 1.05 mg/dL 0.70-1.30 [facility] Comment on above: The validity of the calculated GFR & GFRAA in patients over 70 years has not been determined. Clinical correlation is essential. Serum or plasma urea nitroge n measurement (mass/volume)Ordered By: Dr. Fisher on 10-23-2022 Urea nitrogen [Mass/Vol] 21 mg/dL 7-18 [facility] Thin prep Papanicolaou smear with manual screeningOrdered By: Dr. Fisher on 10-23-2022 Thin prep Papanicolaou smear with manual screening 7 - [facility] Absolute lymphocyte countOrd ered By: Dr. Fisher on 10-16-2022 Lymphocytes Auto (Unsp spec) [#/Vol] 1.69 10*3/uL 0.83-4.51 [facility] Basophil percentageOrdered B y: Dr. Fisher on 10-16-2022 Basophils/100 WBC (Bld) 0.5 % 0-1 [facility] Chloride [Moles/Vol] 104 mmol/L 98-107 [facility] Eosinophils/100 WBC (Bld) 2.6 % 0-5 [facility] Glucose [Mass/Vol] 99 mg/dL 74-106 [facility] Neutrophils (Bld) [#/Vol] 4.0 10*3/uL 2.0-7.7 [facility] Neutrophils/100 WBC (Bld) 60.4 % 47-70 [facility] Potassium [Moles/Vol] 4.2 mmol/L 3.5-5.1 [facility] Sodium [Moles/Vol] 139 mmol/L 136-145 [facility] WBC (Bld) [#/Vol] 6.6 10*3/uL 4.4-11.0 [facility] Blood erythrocytes count (nu mber/volume)Ordered By: Dr. Fisher on 10-16-2022 RBC (Bld) [#/Vol] 3.92 10*6/uL 4.6-6.2 [facility] Blood hemoglobin measurement (mass/volume)Ordered By: Dr. Fisher on 10-16-2022 Hemoglobin (Bld) [Mass/Vol] 11.8 g/dL 13.0-16.5 [facility] Blood lymphocytes/100 leukoc ytesOrdered By: Dr. Fisher on 10-16-2022 Lymphocytes/100 WBC (Bld) 25.5 % 19-41 [facility] Blood monocytes/100 leukocyt esOrdered By: Dr. Fisher on 10-16-2022 Monocytes/100 WBC (Bld) 10.7 % 0-10 [facility] Blood platelet mean volumeOr dered By: Dr. Fisher on 10-16-2022 Platelet mean volume (Bld) [Entitic vol] 9.7 fL 6.2-12.0 [facility] Determination of erythrocyte mean corpuscular volume (MCV)Ordered By: Dr. Fisher on 10-16-2022 MCV (RBC) [Entitic vol] 91.1 fL 80-94 [facility] Hematocrit Auto (Bld) [Volum e fraction]Ordered By: Dr. Fisher on 10-16-2022 Hematocrit (Bld) [Volume fraction] 35.7 % 40-54 [facility] Laboratory - Chemistry and C hemistry - challengeOrdered By: Dr. Fisher on 10-16-2022 CO2 [Moles/Vol] 29.0 mmol/L 21.0-32.0 [facility] Urea nitrogen/Creatinine [Mass ratio] 20.6 mg/mg 10-20 [facility] - Hematology and Cell countsOrdered By: Dr. Fisher on 10-16-2022 Erythrocyte distribution width (RBC) [Entitic vol] 48.0 fL 35.1-43.9 [facility] Erythrocyte distribution width (RBC) [Ratio] 14.5 % 11.6-14.6 [facility] Immature granulocytes/100 WBC (Bld) 0.300 % 0.0-0.9 [facility] Comment on above: IG% - Immature Granu locytes (promyelocytes, myelocytes and metamyelocytes) > 1% indicates that a LEFT SHIFT is Present. MCH (RBC) [Entitic mass] 30.1 pg 27.0-32.0 [facility] Nucleated RBC/100 WBC (Bld) [Ratio] 0 % 0-5 [facility] MCHC Auto (RBC) [Mass/Vol]Or dered By: Dr. Fisher on 10-16-2022 MCHC (RBC) [Mass/Vol] 33.1 g/dL 32-36 [facility] No Panel InformationOrdered By: Dr. Fisher on 10-16-2022 Estimated GFR (MDRD) Amer 89 mL/min >60 [facility] Comment on above: GFR Calc Estimated GFR (MDRD) Non-Af Amer 73 mL/min >60 [facility] Comment on above: Non- GFR Calc Platelets bldOrdered By: Dr. Fisher on 10-16-2022 Platelets (Bld) [#/Vol] 203 10*3/uL 150-450 [facility] Serum or plasma calcium messi urement (mass/volume)Ordered By: Dr. Fisher on 10-16-2022 Calcium [Mass/Vol] 8.7 mg/dL 8.5-10.1 [facility] Serum or plasma creatinine m easurement (mass/volume)Ordered By: Dr. Fisher on 10-16-2022 Creatinine [Mass/Vol] 1.07 mg/dL 0.70-1.30 [facility] Comment on above: The validity of the calculated GFR & GFRAA in patients over 70 years has not been determined. Clinical correlation is essential. Serum or plasma urea nitroge n measurement (mass/volume)Ordered By: Dr. Fisher on 10-16-2022 Urea nitrogen [Mass/Vol] 22 mg/dL 7-18 [facility] Thin prep Papanicolaou smear with manual screeningOrdered By: Dr. Fisher on 10-16-2022 Thin prep Papanicolaou smear with manual screening 6 -15 [facility] Absolute lymphocyte counton 10-08-2022 Lymphocytes Auto (Unsp spec) [#/Vol] 1.70 10*3/uL 0.83-4.51 [facility] Work Phone: Basophil percentageon 2021 Basophils/100 WBC (Bld) 0.4 % 0-1 [facility] Work Phone: Chloride [Moles/Vol] 103 mmol/L 98-107 [facility]: Eosinophils/100 WBC (Bld) 1.7 % 0-5 [facility] Work Phone: Glucose [Mass/Vol] 90 mg/dL 74-106 [facility] Work Phone: [phone] Neutrophils (Bld) [#/Vol] 5.7 10*3/uL 2.0-7.7 [facility] Work Phone: [phone] Neutrophils/100 WBC (Bld) 68.8 % 47-70 [facility] Work Phone: Potassium [Moles/Vol] 4.1 mmol/L 3.5-5.1 [facility]: Sodium [Moles/Vol] 138 mmol/L 136-145 [facility] Work Phone: WBC (Bld) [#/Vol] 8.2 10*3/uL 4.4-11.0 [facility] Work Phone: [phone] Blood erythrocytes count (nu mber/volume)on 10-08-2022 RBC (Bld) [#/Vol] 4.13 10*6/uL 4.6-6.2 [facility] Work Phone: [phone] Blood hemoglobin measurement (mass/volume)on 10-08-2022 Hemoglobin (Bld) [Mass/Vol] 12.3 g/dL 13.0-16.5 [facility] Work Phone: Blood lymphocytes/100 leukoc yteson 10-08-2022 Lymphocytes/100 WBC (Bld) 20.7 % 19-41 [facility] Work Phone: Blood monocytes/100 leukocyt eson 10-08-2022 Monocytes/100 WBC (Bld) 8.0 % 0-10 [facility] Work Phone: Blood platelet mean volumeon 10-08-2022 Platelet mean volume (Bld) [Entitic vol] 9.6 fL 6.2-12.0 [facility] Work Phone: Determination of erythrocyte mean corpuscular volume (MCV)on 10-08-2022 MCV (RBC) [Entitic vol] 89.1 fL 80-94 [facility] Work Phone: Hematocrit Auto (Bld) [Volum e fraction]on 10-08-2022 Hematocrit (Bld) [Volume fraction] 36.8 % 40-54 [facility] Work Phone: Laboratory - Chemistry and C hemistry - challengeon 10-08-2022 CO2 [Moles/Vol] 30.0 mmol/L 21.0-32.0 [facility] Work Phone: Urea nitrogen/Creatinine [Mass ratio] 19.0 mg/mg 10-20 [facility] Work Phone: Laboratory - Hematology and Cell countson 10-08-2022 Erythrocyte distribution width (RBC) [Entitic vol] 44.8 fL 35.1-43.9 [facility] Work Phone: Erythrocyte distribution width (RBC) [Ratio] 13.9 % 11.6-14.6 [facility] Work Phone: Immature granulocytes/100 WBC (Bld) 0.400 % 0.0-0.9 [facility] Work Phone: Comment on above: IG% - Immature Granu locytes (promyelocytes, myelocytes and metamyelocytes) > 1% indicates that a LEFT SHIFT is Present. MCH (RBC) [Entitic mass] 29.8 pg 27.0-32.0 [facility] Work Phone: Nucleated RBC/100 WBC (Bld) [Ratio] 0 % 0-5 [facility] Work Phone: MCHC Auto (RBC) [Mass/Vol]on 10-08-2022 MCHC (RBC) [Mass/Vol] 33.4 g/dL 32-36 [facility] Work Phone: No Panel Informationon 10-08 Estimated GFR (MDRD) Amer 126 mL/min >60 [facility] Work Phone: Comment on above: GFR Calc Estimated GFR (MDRD) Non-Af Amer 104 mL/min >60 [facility] Work Phone: Comment on above: Non- GFR Calc Platelets bldon 10-08-2022 Platelets (Bld) [#/Vol] 192 10*3/uL 150-450 [facility] Work Phone: Serum or plasma C reactive p rotein measurement (mass/volume)on 10-08-2022 CRP [Mass/Vol] 6.03 mg/L 0.0-3.0 [facility] Work Phone: Comment on above: C-Reactive Protein ( CRP) provides useful information for thediagnosis, therapy and monitoring of inflammatory processesand associated diseases. For the evaluation of Relative Riskfor Cardiovascular Disease, a High Sensitivity CRP (HSCRP)should be ordered. Serum or plasma calcium messi urement (mass/volume)on 10-08-2022 Calcium [Mass/Vol] 8.7 mg/dL 8.5-10.1 [facility] Work Phone: Serum or plasma creatinine m easurement (mass/volume)on 10-08-2022 Creatinine [Mass/Vol] 0.79 mg/dL 0.70-1.30 [facility] Work Phone: Comment on above: The validity of the calculated GFR & GFRAA in patients over 70 years has not been determined. Clinical correlation is essential. Serum or plasma urea nitroge n measurement (mass/volume)on 10-08-2022 Urea nitrogen [Mass/Vol] 15 mg/dL 7-18 [facility] Work Phone: Thin prep Papanicolaou smear with manual screeningon 10-08-2022 Thin prep Papanicolaou smear with manual screening 5 5-15 [facility] Work Phone: Absolute lymphocyte counton 10-01-2022 Lymphocytes Auto (Unsp spec) [#/Vol] 1.72 10*3/uL 0.83-4.51 [facility] Work Phone: Basophil percentageon 2021 Basophils/100 WBC (Bld) 0.3 % 0-1 [facility] Work Phone: [phone] Chloride [Moles/Vol] 102 mmol/L 98-107 [facility] Work Phone: Eosinophils/100 WBC (Bld) 1.7 % 0-5 [facility] Work Phone: Glucose [Mass/Vol] 97 mg/dL 74-106 [facility] Work Phone: [phone] Neutrophils (Bld) [#/Vol] 3.7 10*3/uL 2.0-7.7 [facility] Work Phone: [phone] Neutrophils/100 WBC (Bld) 60.7 % 47-70 [facility] Work Phone: [phone] Potassium [Moles/Vol] 4.0 mmol/L 3.5-5.1 [facility] Work Phone: [phone] Sodium [Moles/Vol] 136 mmol/L 136-145 [facility] Work Phone: [phone] WBC (Bld) [#/Vol] 6.0 10*3/uL 4.4-11.0 [facility] Work Phone: Blood erythrocytes count (nu mber/volume)on 10-01-2022 RBC (Bld) [#/Vol] 4.26 10*6/uL 4.6-6.2 [facility] Work Phone: Blood hemoglobin measurement (mass/volume)on 10-01-2022 Hemoglobin (Bld) [Mass/Vol] 12.6 g/dL 13.0-16.5 [facility] Work Phone: Blood lymphocytes/100 leukoc yteson 10-01-2022 Lymphocytes/100 WBC (Bld) 28.5 % 19-41 [facility] Work Phone: Blood monocytes/100 leukocyt eson 10-01-2022 Monocytes/100 WBC (Bld) 8.6 % 0-10 [facility] Work Phone: Blood platelet mean volumeon 10-01-2022 Platelet mean volume (Bld) [Entitic vol] 8.6 fL 6.2-12.0 [facility] Work Phone: Determination of erythrocyte mean corpuscular volume (MCV)on 10-01-2022 MCV (RBC) [Entitic vol] 88.5 fL 80-94 [facility] Work Phone: Hematocrit Auto (Bld) [Volum e fraction]on 10-01-2022 Hematocrit (Bld) [Volume fraction] 37.7 % 40-54 [facility] Work Phone: Laboratory - Chemistry and C hemistry - challengeon 10-01-2022 CO2 [Moles/Vol] 26.0 mmol/L 21.0-32.0 [facility] Work Phone: Urea nitrogen/Creatinine [Mass ratio] 19.6 mg/mg 10-20 [facility] Work Phone: Laboratory - Hematology and Cell countson 10-01-2022 Erythrocyte distribution width (RBC) [Entitic vol] 43.8 fL 35.1-43.9 [facility] Work Phone: Erythrocyte distribution width (RBC) [Ratio] 13.6 % 11.6-14.6 [facility] Work Phone: Immature granulocytes/100 WBC (Bld) 0.200 % 0.0-0.9 [facility] Work Phone: Comment on above: IG% - Immature Granu locytes (promyelocytes, myelocytes and metamyelocytes) > 1% indicates that a LEFT SHIFT is Present. MCH (RBC) [Entitic mass] 29.6 pg 27.0-32.0 [facility] Work Phone: Nucleated RBC/100 WBC (Bld) [Ratio] 0 % 0-5 [facility] Work Phone: MCHC Auto (RBC) [Mass/Vol]on 10-01-2022 MCHC (RBC) [Mass/Vol] 33.4 g/dL 32-36 [facility] Work Phone: No Panel Informationon 10-01 Estimated GFR (MDRD) Amer 154 mL/min >60 [facility] Work Phone: Comment on above: GFR Calc Estimated GFR (MDRD) Non-Af Amer 127 mL/min >60 [facility] Work Phone: Comment on above: Non- GFR Calc Platelets bldon 10-01-2022 Platelets (Bld) [#/Vol] 258 10*3/uL 150-450 [facility] Work Phone: Serum or plasma C reactive p rotein measurement (mass/volume)on 10-01-2022 CRP [Mass/Vol] 10.50 mg/L 0.0-3.0 [facility] Work Phone: Comment on above: C-Reactive Protein ( CRP) provides useful information for thediagnosis, therapy and monitoring of inflammatory processesand associated diseases. For the evaluation of Relative Riskfor Cardiovascular Disease, a High Sensitivity CRP (HSCRP)should be ordered. Serum or plasma calcium messi urement (mass/volume)on 10-01-2022 Calcium [Mass/Vol] 9.0 mg/dL 8.5-10.1 [facility] Work Phone: Serum or plasma creatinine m easurement (mass/volume)on 10-01-2022 Creatinine [Mass/Vol] 0.66 mg/dL 0.70-1.30 [facility] Work Phone: Comment on above: The validity of the calculated GFR & GFRAA in patients over 70 years has not been determined. Clinical correlation is essential. Serum or plasma urea nitroge n measurement (mass/volume)on 10-01-2022 Urea nitrogen [Mass/Vol] 13 mg/dL 7-18 [facility] Work Phone: Thin prep Papanicolaou smear with manual screeningon 10-01-2022 Thin prep Papanicolaou smear with manual screening 8 5-15 [facility] Work Phone: Absolute lymphocyte counton 09-26-2022 Lymphocytes Auto (Unsp spec) [#/Vol] 0.88 10*3/uL 0.83-4.51 [facility] Work Phone: Basophil percentageon 2021 Basophils/100 WBC (Bld) 0.2 % 0-1 [facility] Work Phone: Chloride [Moles/Vol] 102 mmol/L 98-107 [facility] Work Phone: Eosinophils/100 WBC (Bld) 0.5 % 0-5 [facility] Work Phone: Glucose [Mass/Vol] 105 mg/dL 74-106 [facility] Work Phone: Comment on above: Fasting Glucose resu lt from 100 to 125 mg/dL suggests IMPAIRED HOMEOSTASIS per A.D.A. criteria. Neutrophils (Bld) [#/Vol] 6.3 10*3/uL 2.0-7.7 [facility] Work Phone: Neutrophils/100 WBC (Bld) 77.2 % 47-70 [facility] Work Phone: Potassium [Moles/Vol] 4.3 mmol/L 3.5-5.1 [facility] Work Phone: [phone] Comment on above: Slight Hemolysis, Re sult may be falsely increased. Sodium [Moles/Vol] 132 mmol/L 136-145 [facility] Work Phone: WBC (Bld) [#/Vol] 8.2 10*3/uL 4.4-11.0 [facility] Work [facility]: Blood erythrocytes count (nu mber/volume)on 09-26-2022 RBC (Bld) [#/Vol] 4.42 10*6/uL 4.6-6.[address] [facility] [address] Work Phone: Blood hemoglobin measurement (mass/volume)on 09-26-2022 Hemoglobin (Bld) [Mass/Vol] 12.9 g/dL 13.0-16.5 [facility] Work Phone: Blood lymphocytes/100 leukoc yteson 09-26-2022 Lymphocytes/100 WBC (Bld) 10.7 % 19-41 [facility] Work Phone: Blood monocytes/100 leukocyt eson 09-26-2022 Monocytes/100 WBC (Bld) 10.4 % 0-10 [facility] Work Phone: Blood platelet mean volumeon 09-26-2022 Platelet mean volume (Bld) [Entitic vol] 8.8 fL 6.2-12.0 [facility] Work Phone: Determination of erythrocyte mean corpuscular volume (MCV)on 09-26-2022 MCV (RBC) [Entitic vol] 89.8 fL 80-94 [facility] Work Phone: Hematocrit Auto (Bld) [Volum e fraction]on 09-26-2022 Hematocrit (Bld) [Volume fraction] 39.7 % 40-54 [facility] Work Phone: Laboratory - Chemistry and C hemistry - challengeon 09-26-2022 CO2 [Moles/Vol] 25.0 mmol/L 21.0-32.0 [facility] Work Phone: Urea nitrogen/Creatinine [Mass ratio] 19.3 mg/mg 10-20 [facility] Work Phone: Laboratory - Hematology and Cell countson 09-26-2022 Erythrocyte distribution width (RBC) [Entitic vol] 45.1 fL 35.1-43.9 [facility] Work Phone: Erythrocyte distribution width (RBC) [Ratio] 13.7 % 11.6-14.6 [facility] Work Phone: Immature granulocytes/100 WBC (Bld) 1.000 % 0.0-0.9 [facility] Work Phone: Comment on above: IG% - Immature Granu locytes (promyelocytes, myelocytes and metamyelocytes) > 1% indicates that a LEFT SHIFT is Present. MCH (RBC) [Entitic mass] 29.2 pg 27.0-32.0 [facility] Work Phone: Nucleated RBC/100 WBC (Bld) [Ratio] 0 % 0-5 [facility] Work Phone: MCHC Auto (RBC) [Mass/Vol]on 09-26-2022 MCHC (RBC) [Mass/Vol] 32.5 g/dL 32-36 [facility] Work Phone: No Panel Informationon 09-26 Estimated GFR (MDRD) Amer 138 mL/min >60 [facility] Work Phone: Comment on above: GFR Calc Estimated GFR (MDRD) Non-Af Amer 114 mL/min >60 [facility] Work Phone: Comment on above: Non- GFR Calc Platelets bldon 09-26-2022 Platelets (Bld) [#/Vol] 279 10*3/uL 150-450 [facility] Work Phone: Serum or plasma calcium messi urement (mass/volume)on 09-26-2022 Calcium [Mass/Vol] 8.8 mg/dL 8.5-10.1 [facility] Work Phone: Serum or plasma creatinine m easurement (mass/volume)on 09-26-2022 Creatinine [Mass/Vol] 0.73 mg/dL 0.70-1.30 [facility] Work Phone: Comment on above: The validity of the calculated GFR & GFRAA in patients over 70 years has not been determined. Clinical correlation is essential. Serum or plasma urea nitroge n measurement (mass/volume)on 09-26-2022 Urea nitrogen [Mass/Vol] 14 mg/dL 7-18 [facility] Work Phone: Thin prep Papanicolaou smear with manual screeningon 09-26-2022 Thin prep Papanicolaou smear with manual screening 5 5-15 [facility] Work Phone: Basophil percentageon 2021 Chloride [Moles/Vol] 100 mmol/L 98-107 [facility] Work Phone: Glucose [Mass/Vol] 94 mg/dL 74-106 [facility] Work Phone: Potassium [Moles/Vol] 4.3 mmol/L 3.5-5.1 [facility] Work Phone: Sodium [Moles/Vol] 133 mmol/L 136-145 [facility] Work Phone: WBC (Bld) [#/Vol] 7.0 10*3/uL 4.4-11.0 [facility] Work Phone: Blood erythrocytes count (nu mber/volume)on 09-24-2022 RBC (Bld) [#/Vol] 4.15 10*6/uL 4.6-6.2 [facility] Work Phone: Blood hemoglobin measurement (mass/volume)on 09-24-2022 Hemoglobin (Bld) [Mass/Vol] 12.5 g/dL 13.0-16.5 [facility] Work Phone: Blood platelet mean volumeon 09-24-2022 Platelet mean volume (Bld) [Entitic vol] 8.6 fL 6.2-12.0 [facility] Work Phone: Determination of erythrocyte mean corpuscular volume (MCV)on 09-24-2022 MCV (RBC) [Entitic vol] 89.6 fL 80-94 [facility] Work Phone: Hematocrit Auto (Bld) [Volum e fraction]on 09-24-2022 Hematocrit (Bld) [Volume fraction] 37.2 % 40-54 [facility] Work Phone: Laboratory - Chemistry and C hemistry - challengeon 09-24-2022 CO2 [Moles/Vol] 27.0 mmol/L 21.0-32.0 [facility] Work Phone: Cobalamin (Vitamin B12) [Mass/Vol] 247 pg/mL 211-911 [facility] Work Phone: Magnesium [Mass/Vol] 2.5 mg/dL 1.6-2.6 [facility] Work Phone: Urea nitrogen/Creatinine [Mass ratio] 22.0 mg/mg 10-20 [facility] Work Phone: Laboratory - Hematology and Cell countson 09-24-2022 Erythrocyte distribution width (RBC) [Entitic vol] 45.3 fL 35.1-43.9 [facility] Work Phone: Erythrocyte distribution width (RBC) [Ratio] 13.9 % 11.6-14.6 [facility] Work Phone: MCH (RBC) [Entitic mass] 30.1 pg 27.0-32.0 [facility] Work Phone: MCHC Auto (RBC) [Mass/Vol]on 09-24-2022 MCHC (RBC) [Mass/Vol] 33.6 g/dL 32-36 [facility] Work Phone: No Panel Informationon 09-24 Estimated GFR (MDRD) Amer 107 mL/min >60 [facility] Work Phone: Comment on above: GFR Calc Estimated GFR (MDRD) Non-Af Amer 88 mL/min >60 [facility] Work Phone: Comment on above: Non- GFR Calc Thyroid Stimulating Hormone (TSH) 0.96 uIU/mL 0.358-3.74 [facility] Work Phone: Vitamin D 25-Hydroxy 46.7 ng/mL [facility] Work Phone: Comment on above: Vitamin D 25(OH) Sta tus Range Deficiency <20 ng/mL (50nmol/L) Insufficiency 20 - 30 ng/mL (50 - 75 nmol/L) Sufficiency 30 - 100 ng/mL (75 - 250 nmol/L) Toxicity >100 ng/mL (>250 nmol/L) Platelets bldon 09-24-2022 Platelets (Bld) [#/Vol] 249 10*3/uL 150-450 [facility] Work Phone: Serum or plasma calcium messi urement (mass/volume)on 09-24-2022 Calcium [Mass/Vol] 8.4 mg/dL 8.5-10.1 [facility] Work Phone: Serum or plasma creatinine m easurement (mass/volume)on 09-24-2022 Creatinine [Mass/Vol] 0.91 mg/dL 0.70-1.30 [facility] Work Phone: Comment on above: The validity of the calculated GFR & GFRAA in patients over 70 years has not been determined. Clinical correlation is essential. Serum or plasma urea nitroge n measurement (mass/volume)on 09-24-2022 Urea nitrogen [Mass/Vol] 20 mg/dL 7-18 [facility] Work Phone: Thin prep Papanicolaou smear with manual screeningon 09-24-2022 Thin prep Papanicolaou smear with manual screening 6 5-15 [facility] Work Phone: Absolute lymphocyte counton 09-21-2022 Lymphocytes Auto (Unsp spec) [#/Vol] 1.33 10*3/uL 0.83-4.51 [facility] Work Phone: Basophil percentageon 2021 Basophils/100 WBC (Bld) 0.3 % 0-1 [facility] Work Phone: [phone] Chloride [Moles/Vol] 94 mmol/L 98-[address] [facility] Work Phone: [phone] Eosinophils/100 WBC (Bld) 1.9 % 0-5 [facility] Work Phone: [phone] Glucose [Mass/Vol] 99 mg/dL 74-106 [facility]: [phone] Neutrophils (Bld) [#/Vol] 5.4 10*3/uL 2.0-7.7 [facility] Work Phone: [phone] Neutrophils/100 WBC (Bld) 68.1 % 47-70 [facility] Work Phone: [phone] Potassium [Moles/Vol] 3.7 mmol/L 3.5-5.1 [facility]: [phone] Sodium [Moles/Vol] 128 mmol/L 136-145 [facility] Phone: [phone] WBC (Bld) [#/Vol] 8.0 10*3/uL 4.4-11.0 [facility] Work Phone: [phone] Blood erythrocytes count (nu mber/volume)on 09-21-2022 RBC (Bld) [#/Vol] 4.48 10*6/uL 4.6-6.[address] [facility] Work Phone: [phone] Blood hemoglobin measurement (mass/volume)on 09-21-2022 Hemoglobin (Bld) [Mass/Vol] 13.4 g/dL 13.0-16.5 [facility] Work Phone: Blood lymphocytes/100 leukoc yteson 09-21-2022 Lymphocytes/100 WBC (Bld) 16.6 % 19-41 [facility] Work Phone: Blood monocytes/100 leukocyt eson 09-21-2022 Monocytes/100 WBC (Bld) 12.0 % 0-10 [facility] Work Phone: Blood platelet mean volumeon 09-21-2022 Platelet mean volume (Bld) [Entitic vol] 8.7 fL 6.2-12.0 [facility] Work Phone: Determination of erythrocyte mean corpuscular volume (MCV)on 09-21-2022 MCV (RBC) [Entitic vol] 85.9 fL 80-94 [facility] Work Phone: Hematocrit Auto (Bld) [Volum e fraction]on 09-21-2022 Hematocrit (Bld) [Volume fraction] 38.5 % 40-54 [facility] Work Phone: Laboratory - Chemistry and C hemistry - challengeon 09-21-2022 CO2 [Moles/Vol] 28.0 mmol/L 21.0-32.0 [facility] Work Phone: Urea nitrogen/Creatinine [Mass ratio] 14.9 mg/mg 10-20 [facility] Work Phone: Laboratory - Hematology and Cell countson 09-21-2022 Erythrocyte distribution width (RBC) [Entitic vol] 43.0 fL 35.1-43.9 [facility] Work Phone: Erythrocyte distribution width (RBC) [Ratio] 13.7 % 11.6-14.6 [facility] Work Phone: Immature granulocytes/100 WBC (Bld) 1.100 % 0.0-0.9 [facility] Work Phone: Comment on above: IG% - Immature Granu locytes (promyelocytes, myelocytes and metamyelocytes) > 1% indicates that a LEFT SHIFT is Present. MCH (RBC) [Entitic mass] 29.9 pg 27.0-32.0 [facility] Work Phone: Nucleated RBC/100 WBC (Bld) [Ratio] 0 % 0-5 [facility] Work Phone: MCHC Auto (RBC) [Mass/Vol]on 09-21-2022 MCHC (RBC) [Mass/Vol] 34.8 g/dL 32-36 [facility] Work [facility]: No Panel Informationon 09-21 Estimated Creatinine Clearance Calc 78.68 ml/min [facility] Work Phone: Estimated GFR (MDRD) Amer 152 mL/min >60 [facility] Work Phone: Comment on above: GFR Calc Estimated GFR (MDRD) Non-Af Amer 126 mL/min >60 [facility] Work Phone: Comment on above: Non- GFR Calc Platelets bldon 09-21-2022 Platelets (Bld) [#/Vol] 222 10*3/uL 150-450 [facility] Work Phone: Serum or plasma calcium messi urement (mass/volume)on 09-21-2022 Calcium [Mass/Vol] 8.6 mg/dL 8.5-10.1 [facility] Work Phone: Serum or plasma creatinine m easurement (mass/volume)on 09-21-2022 Creatinine [Mass/Vol] 0.67 mg/dL 0.70-1.30 [facility] Work Phone: Comment on above: The validity of the calculated GFR & GFRAA in patients over 70 years has not been determined. Clinical correlation is essential. Serum or plasma urea nitroge n measurement (mass/volume)on 09-21-2022 Urea nitrogen [Mass/Vol] 10 mg/dL 7-18 [facility] Work Phone: Thin prep Papanicolaou smear with manual screeningon 09-21-2022 Thin prep Papanicolaou smear with manual screening 6 5-15 [facility] Work Phone: Absolute lymphocyte counton 09-15-2022 Lymphocytes Auto (Unsp spec) [#/Vol] 0.70 10*3/uL 0.83-4.51 [facility] Work Phone: Basophil percentageon 2021 Lactate [Moles/Vol] 0.9 mmol/L 0.4-2.0 [facility] Work Phone: Basophil percentage >100 SEEN /hpf 0-5 [facility] Work Phone: [phone] Basophils/100 WBC (Bld) 0.3 % 0-1 [facility] Work Phone: [phone] Bilirubin [Mass/Vol] 1.40 mg/dL 0.20-1.00 [facility] Work Phone: Comment on above: For patients on eltr ombopag therapy, use of Dimension [place] TBIL is not recommended. Chloride [Moles/Vol] 102 mmol/L 98-107 [facility] Work Phone: Eosinophils/100 WBC (Bld) 0.0 % 0-5 [facility] Work Phone: Glucose [Mass/Vol] 119 mg/dL 74-106 [facility] Work Phone: Comment on above: Fasting Glucose resu lt from 100 to 125 mg/dL suggests IMPAIRED HOMEOSTASIS per A.D.A. criteria. Neutrophils (Bld) [#/Vol] 12.9 10*3/uL 2.0-7.7 [facility] Work Phone: Neutrophils/100 WBC (Bld) 86.7 % 47-70 [facility] Work Phone: Potassium [Moles/Vol] 3.5 mmol/L 3.5-5.1 [facility] Work Phone: Protein [Mass/Vol] 7.1 g/dL 6.4-8.2 [facility] Work Phone: [phone] Sodium [Moles/Vol] 136 mmol/L 136-145 [facility] Work Phone: [phone] WBC (Bld) [#/Vol] 14.9 10*3/uL 4.4-11.0 [facility] Work Phone: Bilirubin Test strip Ql (U)o n 09-15-2022 Bilirubin Ql (U) Negative Negative [facility] Work Phone: Blood erythrocytes count (nu mber/volume)on 09-15-2022 RBC (Bld) [#/Vol] 4.70 10*6/uL 4.6-6.[address] [facility] Work Phone: Blood hemoglobin measurement (mass/volume)on 09-15-2022 Hemoglobin (Bld) [Mass/Vol] 14.2 g/dL 13.0-16.5 [facility] Work Phone: Blood lymphocytes/100 leukoc yteson 09-15-2022 Lymphocytes/100 WBC (Bld) 4.7 % 19-41 [facility] Work Phone: Blood monocytes/100 leukocyt eson 09-15-2022 Monocytes/100 WBC (Bld) 7.5 % 0-10 [facility] Work Phone: Blood platelet mean volumeon 09-15-2022 Platelet mean volume (Bld) [Entitic vol] 9.3 fL 6.2-12.0 [facility] Work Phone: Determination of erythrocyte mean corpuscular volume (MCV)on 09-15-2022 MCV (RBC) [Entitic vol] 89.1 fL 80-94 [facility] Work Phone: Hematocrit Auto (Bld) [Volum e fraction]on 09-15-2022 Hematocrit (Bld) [Volume fraction] 41.9 % 40-54 [facility] Work Phone: Ketones Test strip Ql (U)on 09-15-2022 Ketones Ql (U) 15 mg/dl Negative [facility] Work Phone: Laboratory - Chemistry and C hemistry - challengeon 09-15-2022 ALP [Catalytic activity/Vol] 62 U/L 45-117 [facility] Work Phone: ALT [Catalytic activity/Vol] 18 U/L 16-61 [facility] Work Phone: CO2 [Moles/Vol] 24.0 mmol/L 21.0-32.0 [facility] Work Phone: Globulin (S) [Mass/Vol] 3.2 g/dL 2.2-4.2 [facility] Work Phone: Urea nitrogen/Creatinine [Mass ratio] 12.3 mg/mg 10-20 [facility] Work Phone: Laboratory - Hematology and Cell countson 09-15-2022 Erythrocyte distribution width (RBC) [Entitic vol] 44.6 fL 35.1-43.9 [facility] Work Phone: Erythrocyte distribution width (RBC) [Ratio] 13.6 % 11.6-14.6 [facility] Work Phone: Immature granulocytes/100 WBC (Bld) 0.800 % 0.0-0.9 [facility] Work Phone: Comment on above: IG% - Immature Granu locytes (promyelocytes, myelocytes and metamyelocytes) > 1% indicates that a LEFT SHIFT is Present. MCH (RBC) [Entitic mass] 30.2 pg 27.0-32.0 [facility] Work Phone: Nucleated RBC/100 WBC (Bld) [Ratio] 0 % 0-5 [facility] Work Phone: MCHC Auto (RBC) [Mass/Vol]on 09-15-2022 MCHC (RBC) [Mass/Vol] 33.9 g/dL 32-36 [facility] Work Phone: Mucus LM Ql (Urine sed)on Mucus Ql (Urine sed) 0 SEEN /hpf [facility] Work Phone: Nitrite Test strip Ql (U)on 09-15-2022 Nitrite Ql (U) Negative Negative [facility] Work Phone: No Panel Informationon 09-15 Estimated Creatinine Clearance Calc 76.42 ml/min [facility] Work Phone: Estimated GFR (MDRD) Amer 90 mL/min >60 [facility] Work Phone: Comment on above: GFR Calc Estimated GFR (MDRD) Non-Af Amer 74 mL/min >60 [facility] Work Phone: Comment on above: Non- GFR Calc Troponin I High Sensitivity 28 pg/mL 3.0-78.0 [facility] Work Phone: Comment on above: Please Note: New Flower t Units and Gender Specific Reference Ranges. For more information see Policy Stat Procedure [place] High Sensitivity Troponin (TNIH) and attachments. Platelets bldon 09-15-2022 Platelets (Bld) [#/Vol] 189 10*3/uL 150-450 [facility] Work Phone: Protein Test strip Ql (U)on 09-15-2022 Protein Ql (U) 30 mg/dl Negative [facility] Work Phone: Serum or plasma albumin messi urement (mass/volume)on 09-15-2022 Albumin [Mass/Vol] 3.9 g/dL 3.2-5.0 [facility] Work Phone: Serum or plasma albumin/glob ulin mass ratioon 09-15-2022 Albumin/Globulin [Mass ratio] 1.2 {ratio} 0.9-2.4 [facility] Work Phone: Serum or plasma calcium messi urement (mass/volume)on 09-15-2022 Calcium [Mass/Vol] 8.9 mg/dL 8.5-10.1 [facility] Work Phone: Serum or plasma creatinine m easurement (mass/volume)on 09-15-2022 Creatinine [Mass/Vol] 1.06 mg/dL 0.70-1.30 [facility] Work Phone: Comment on above: The validity of the calculated GFR & GFRAA in patients over 70 years has not been determined. Clinical correlation is essential. Serum or plasma urea nitroge n measurement (mass/volume)on 09-15-2022 Urea nitrogen [Mass/Vol] 13 mg/dL 7-18 [facility] Work Phone: Squamous epithelial cells de tection in urine sediment by light microscopyon 09-15-2022 Epithelial cells.squamous LM Ql (Urine sed) 0 SEEN /hpf 0-5 [facility] Work Phone: Thin prep Papanicolaou smear with manual screeningon 09-15-2022 Thin prep Papanicolaou smear with manual screening 60 U/L 15- [facility] Work Phone: Thin prep Papanicolaou smear with manual screening 10 04-15 [facility] Work Phone: Urine blood detectionon 09-01 RBC Ql (U) 150 /ul Negative [facility] Work Phone: RBC Ql (U) 0 SEEN /hpf 0-5 [facility] Work Phone: Urine clarityon 09-15-2022 Clarity (U) Cloudy Clear [facility] Work Phone: Urine color determinationon 09-15-2022 Color (U) Yellow Yellow [facility] Work Phone: Urine glucose detectionon Glucose Ql (U) Normal mg/dl Normal [facility] Work Phone: Urine leukocyte esterase det ection by dipstickon 09-15-2022 Leukocyte esterase Test strip Ql (U) 500 /ul Negative [facility] Work Phone: Urine pHon 09-15-2022 pH (U) 7.0 [pH] 5.0 - 8.0 [facility] Work Phone: [phone] Urine sediment bacteria coun t by microscopy (number/high power field)on 09-15-2022 Bacteria LM.HPF (Urine sed) [#/Area] 3 /[HPF] None Seen [facility] Work Phone: Urine specific gravity measu rementon 09-15-2022 Specific gravity (U) [Rel density] 1.010 1.002-1.030 [facility] Work Phone: Urobilinogen Auto test strip Ql (U)on 09-15-2022 Urobilinogen Ql (U) Normal mg/dl Normal [facility] Work Phone: Absolute lymphocyte counton 08-06-2022 Lymphocytes Auto (Unsp spec) [#/Vol] 1.64 10*3/uL 0.83-4.51 [facility] Work Phone: Basophil percentageon 2021 Basophils/100 WBC (Bld) 0.4 % 0-1 [facility] Work Phone: Bilirubin [Mass/Vol] 0.40 mg/dL 0.20-1.00 [facility] Work Phone: Comment on above: For patients on eltr ombopag therapy, use of Dimension [place] TBIL is not recommended. Chloride [Moles/Vol] 103 mmol/L 98-107 [facility] Work Phone: Eosinophils/100 WBC (Bld) 1.9 % 0-5 [facility] Work Phone: Glucose [Mass/Vol] 124 mg/dL 74-106 [facility] Work Phone: Comment on above: Fasting Glucose resu lt from 100 to 125 mg/dL suggests IMPAIRED HOMEOSTASIS per A.D.A. criteria. Neutrophils (Bld) [#/Vol] 4.3 10*3/uL 2.0-7.7 [facility] Work Phone: Neutrophils/100 WBC (Bld) 63.9 % 47-70 [facility] Work Phone: Potassium [Moles/Vol] 3.6 mmol/L 3.5-5.1 [facility] Work Phone: Protein [Mass/Vol] 6.3 g/dL 6.4-8.2 [facility] Work Phone: [phone] Sodium [Moles/Vol] 136 mmol/L 136-145 [facility] Work Phone: WBC (Bld) [#/Vol] 6.7 10*3/uL 4.4-11.0 [facility] Work [facility]: Blood erythrocytes count (nu mber/volume)on 08-06-2022 RBC (Bld) [#/Vol] 4.23 10*6/uL 4.6-6.[address] [facility] Work Phone: Blood hemoglobin measurement (mass/volume)on 08-06-2022 Hemoglobin (Bld) [Mass/Vol] 12.9 g/dL 13.0-16.5 [facility] Work Phone: Blood lymphocytes/100 leukoc yteson 08-06-2022 Lymphocytes/100 WBC (Bld) 24.5 % 19-41 [facility] Work Phone: Blood monocytes/100 leukocyt eson 08-06-2022 Monocytes/100 WBC (Bld) 9.0 % 0-10 [facility] Work Phone: Blood platelet mean volumeon 08-06-2022 Platelet mean volume (Bld) [Entitic vol] 8.9 fL 6.2-12.0 [facility] Work Phone: Determination of erythrocyte mean corpuscular volume (MCV)on 08-06-2022 MCV (RBC) [Entitic vol] 89.1 fL 80-94 [facility] Work Phone: Hematocrit Auto (Bld) [Volum e fraction]on 08-06-2022 Hematocrit (Bld) [Volume fraction] 37.7 % 40-54 [facility] Work Phone: Laboratory - Chemistry and C hemistry - challengeon 08-06-2022 ALP [Catalytic activity/Vol] 57 U/L 45-117 [facility] Work Phone: ALT [Catalytic activity/Vol] 29 U/L 16-61 [facility] Work Phone: CO2 [Moles/Vol] 25.0 mmol/L 21.0-32.0 [facility] Work Phone: Globulin (S) [Mass/Vol] 2.8 g/dL 2.2-4.2 [facility] Work Phone: Urea nitrogen/Creatinine [Mass ratio] 15.8 mg/mg 10-20 [facility] Work Phone: Laboratory - Hematology and Cell countson 08-06-2022 Erythrocyte distribution width (RBC) [Entitic vol] 44.1 fL 35.1-43.9 [facility] Work Phone: Erythrocyte distribution width (RBC) [Ratio] 13.5 % 11.6-14.6 [facility] Work Phone: Immature granulocytes/100 WBC (Bld) 0.300 % 0.0-0.9 [facility] Work Phone: Comment on above: IG% - Immature Granu locytes (promyelocytes, myelocytes and metamyelocytes) > 1% indicates that a LEFT SHIFT is Present. MCH (RBC) [Entitic mass] 30.5 pg 27.0-32.0 [facility] Work Phone: Nucleated RBC/100 WBC (Bld) [Ratio] 0 % 0-5 [facility] Work Phone: MCHC Auto (RBC) [Mass/Vol]on 08-06-2022 MCHC (RBC) [Mass/Vol] 34.2 g/dL 32-36 [facility] Work Phone: No Panel Informationon 08-06 Estimated Creatinine Clearance Calc 97.26 ml/min [facility] Work Phone: Estimated GFR (MDRD) Amer 120 mL/min >60 [facility] Work Phone: Comment on above: GFR Calc Estimated GFR (MDRD) Non-Af Amer 99 mL/min >60 [facility] Work Phone: Comment on above: Non- GFR Calc Platelets bldon 08-06-2022 Platelets (Bld) [#/Vol] 236 10*3/uL 150-450 [facility] Work Phone: Serum or plasma albumin messi urement (mass/volume)on 08-06-2022 Albumin [Mass/Vol] 3.5 g/dL 3.2-5.0 [facility] Work Phone: Serum or plasma albumin/glob ulin mass ratioon 08-06-2022 Albumin/Globulin [Mass ratio] 1.2 {ratio} 0.9-2.4 [facility] Work Phone: Serum or plasma calcium messi urement (mass/volume)on 08-06-2022 Calcium [Mass/Vol] 8.3 mg/dL 8.5-10.1 [facility] Work Phone: Serum or plasma creatinine m easurement (mass/volume)on 08-06-2022 Creatinine [Mass/Vol] 0.82 mg/dL 0.70-1.30 [facility] Work Phone: Comment on above: The validity of the calculated GFR & GFRAA in patients over 70 years has not been determined. Clinical correlation is essential. Serum or plasma urea nitroge n measurement (mass/volume)on 08-06-2022 Urea nitrogen [Mass/Vol] 13 mg/dL 7-18 [facility] Work Phone: Thin prep Papanicolaou smear with manual screeningon 08-06-2022 Thin prep Papanicolaou smear with manual screening 29 U/L 15-37 [facility] Work Phone: Thin prep Papanicolaou smear with manual screening 8 5-15 [facility] Work Phone: Basophil percentageon 2021 Chloride [Moles/Vol] 100 mmol/L 98-107 [facility] Work Phone: Glucose [Mass/Vol] 96 mg/dL 74-106 [facility] Work Phone: Potassium [Moles/Vol] 4.2 mmol/L 3.5-5.1 [facility] Work Phone: Sodium [Moles/Vol] 133 mmol/L 136-145 [facility] Work Phone: Laboratory - Chemistry and C hemistry - challengeon 07-26-2022 CO2 [Moles/Vol] 26.0 mmol/L 21.0-32.0 [facility] Work Phone: Urea nitrogen/Creatinine [Mass ratio] 13.2 mg/mg 10-20 [facility] Work Phone: No Panel Informationon 07-26 Estimated GFR (MDRD) Amer 107 mL/min >60 [facility] Work Phone: Comment on above: GFR Calc Estimated GFR (MDRD) Non-Af Amer 89 mL/min >60 [facility] Work Phone: Comment on above: Non- GFR Calc Serum or plasma calcium messi urement (mass/volume)on 07-26-2022 Calcium [Mass/Vol] 8.7 mg/dL 8.5-10.1 [facility] Work Phone: Serum or plasma creatinine m easurement (mass/volume)on 07-26-2022 Creatinine [Mass/Vol] 0.91 mg/dL 0.70-1.30 [facility] Work Phone: Comment on above: The validity of the calculated GFR & GFRAA in patients over 70 years has not been determined. Clinical correlation is essential. Serum or plasma urea nitroge n measurement (mass/volume)on 07-26-2022 Urea nitrogen [Mass/Vol] 12 mg/dL 7-18 [facility] Work Phone: Thin prep Papanicolaou smear with manual screeningon 07-26-2022 Thin prep Papanicolaou smear with manual screening 7 5-15 [facility] Work Phone: Absolute lymphocyte counton 07-18-2022 Lymphocytes Auto (Unsp spec) [#/Vol] 1.34 10*3/uL 0.83-4.51 [facility] Work Phone: Basophil percentageon 2021 Basophils/100 WBC (Bld) 0.5 % 0-1 [facility] Work Phone: [phone] Bilirubin [Mass/Vol] 0.40 mg/dL 0.20-1.00 [facility] Work Phone: [phone] Comment on above: For patients on eltr ombopag therapy, use of Dimension [place] TBIL is not recommended. Chloride [Moles/Vol] 103 mmol/L 98-107 [facility] Work Phone: [phone] Eosinophils/100 WBC (Bld) 2.1 % 0-5 [facility] Work Phone: Glucose [Mass/Vol] 101 mg/dL 74-106 [facility] Work Phone: Comment on above: Fasting Glucose resu lt from 100 to 125 mg/dL suggests IMPAIRED HOMEOSTASIS per A.D.A. criteria. Neutrophils (Bld) [#/Vol] 3.7 10*3/uL 2.0-7.7 [facility] Work Phone: Neutrophils/100 WBC (Bld) 64.8 % 47-70 [facility] Work Phone: Potassium [Moles/Vol] 3.9 mmol/L 3.5-5.1 [facility] Work Phone: Protein [Mass/Vol] 6.1 g/dL 6.4-8.2 [facility] Work Phone: [phone] Sodium [Moles/Vol] 135 mmol/L 136-145 [facility] Work Phone: [phone] WBC (Bld) [#/Vol] 5.7 10*3/uL 4.4-11.0 [facility] Work Phone: Blood erythrocytes count (nu mber/volume)on 07-18-2022 RBC (Bld) [#/Vol] 4.34 10*6/uL 4.6-6.2 [facility] Work Phone: Blood hemoglobin measurement (mass/volume)on 07-18-2022 Hemoglobin (Bld) [Mass/Vol] 12.8 g/dL 13.0-16.5 [facility] Work Phone: Blood lymphocytes/100 leukoc yteson 07-18-2022 Lymphocytes/100 WBC (Bld) 23.6 % 19-41 [facility] Work Phone: Blood monocytes/100 leukocyt eson 07-18-2022 Monocytes/100 WBC (Bld) 8.6 % 0-10 [facility] Work Phone: Blood platelet mean volumeon 07-18-2022 Platelet mean volume (Bld) [Entitic vol] 8.9 fL 6.2-12.0 [facility] Work Phone: Determination of erythrocyte mean corpuscular volume (MCV)on 07-18-2022 MCV (RBC) [Entitic vol] 87.6 fL 80-94 [facility] Work Phone: Hematocrit Auto (Bld) [Volum e fraction]on 07-18-2022 Hematocrit (Bld) [Volume fraction] 38.0 % 40-54 [facility] Work Phone: Laboratory - Chemistry and C hemistry - challengeon 07-18-2022 ALP [Catalytic activity/Vol] 55 U/L 45-117 [facility] Work Phone: ALT [Catalytic activity/Vol] 38 U/L 16-61 [facility] Work Phone: CO2 [Moles/Vol] 27.0 mmol/L 21.0-32.0 [facility] Work Phone: Globulin (S) [Mass/Vol] 2.7 g/dL 2.2-4.2 [facility] Work Phone: Urea nitrogen/Creatinine [Mass ratio] 6.9 mg/mg 10-20 [facility] Work Phone: Laboratory - Hematology and Cell countson 07-18-2022 Erythrocyte distribution width (RBC) [Entitic vol] 43.5 fL 35.1-43.9 [facility] Work Phone: Erythrocyte distribution width (RBC) [Ratio] 13.6 % 11.6-14.6 [facility] Work Phone: Immature granulocytes/100 WBC (Bld) 0.400 % 0.0-0.9 [facility] Work Phone: Comment on above: IG% - Immature Granu locytes (promyelocytes, myelocytes and metamyelocytes) > 1% indicates that a LEFT SHIFT is Present. MCH (RBC) [Entitic mass] 29.5 pg 27.0-32.0 [facility] Work Phone: Nucleated RBC/100 WBC (Bld) [Ratio] 0 % 0-5 [facility] Work Phone: MCHC Auto (RBC) [Mass/Vol]on 07-18-2022 MCHC (RBC) [Mass/Vol] 33.7 g/dL 32-36 [facility] Work Phone: No Panel Informationon 07-18 Estimated GFR (MDRD) Amer 113 mL/min >60 [facility] Work Phone: Comment on above: GFR Calc Estimated GFR (MDRD) Non-Af Amer 94 mL/min >60 [facility] Work Phone: Comment on above: Non- GFR Calc Thyroid Stimulating Hormone (TSH) 0.44 uIU/mL 0.358-3.74 [facility] Work Phone: Platelets bldon 07-18-2022 Platelets (Bld) [#/Vol] 207 10*3/uL 150-450 [facility] Work Phone: Serum or plasma albumin messi urement (mass/volume)on 07-18-2022 Albumin [Mass/Vol] 3.4 g/dL 3.2-5.0 [facility] Work Phone: Serum or plasma albumin/glob ulin mass ratioon 07-18-2022 Albumin/Globulin [Mass ratio] 1.3 {ratio} 0.9-2.4 [facility] Work Phone: Serum or plasma calcium messi urement (mass/volume)on 07-18-2022 Calcium [Mass/Vol] 7.7 mg/dL 8.5-10.1 [facility] Work Phone: Serum or plasma creatinine m easurement (mass/volume)on 07-18-2022 Creatinine [Mass/Vol] 0.86 mg/dL 0.70-1.30 [facility] Work Phone: Comment on above: The validity of the calculated GFR & GFRAA in patients over 70 years has not been determined. Clinical correlation is essential. Serum or plasma urea nitroge n measurement (mass/volume)on 07-18-2022 Urea nitrogen [Mass/Vol] 6 mg/dL 7-18 [facility] Work Phone: Thin prep Papanicolaou smear with manual screeningon 07-18-2022 Thin prep Papanicolaou smear with manual screening 37 U/L 15-37 [facility] Work Phone: Thin prep Papanicolaou smear with manual screening 5 5-15 [facility] Work Phone: Laboratory - Microbiology an d Antimicrobial susceptibilityon 04-03-2022 SARS-CoV-2 (COVID-19) RNA BERNARDO+probe Ql (Unsp spec) Not detected Not Detect [facility] Work Phone: Comment on above: Normal Reference Ran ge: Not DetectedMethod:(RT-PCR) real-time reverse transcriptase PCRLuminex MARY ELLEN Instrument*The Food and Drug Administration (FDA) has issued an Emergency Use Authorization (EAU) for the MARY ELLEN SARS-CoV-2 Assay for the rapid detection of the virus that causes COVID-19. This test has been validated, but the FDAs independent review of this validation is pending.*Negative results do not preclude infection and should not be used as the sole basis for treatment or patient management. Optimum specimen types and timing for peak viral levels during infections caused by SARS-CoV-2 have not been determined. Collection of multiple specimens from the same patient may be necessary to detect the virus. The possibility of a false negative result should be considered if the patient has clinical presentation or has had recent exposure. No Panel Informationon 04-03 Influenza Types A,B Direct FA (HEIDE) [facility] Work Phone: [phone] Absolute lymphocyte counton 03-20-2022 Lymphocytes Auto (Unsp spec) [#/Vol] 2.00 10*3/uL 0.83-4.51 [facility] Work Phone: [phone] Basophil percentageon 2021 Basophils/100 WBC (Bld) 0.3 % 0-1 [facility] Work Phone: [phone] Bilirubin [Mass/Vol] 0.60 mg/dL 0.20-1.00 [facility] Work Phone: [phone] Comment on above: For patients on eltr ombopag therapy, use of Dimension [place] TBIL is not recommended. Chloride [Moles/Vol] 98 mmol/L 98-107 [facility] [facility] Work Phone: [phone] Eosinophils/100 WBC (Bld) 2.4 % 0-5 [facility] Work Phone: Glucose [Mass/Vol] 108 mg/dL 74-106 [facility] Work Phone: [phone] Comment on above: Fasting Glucose resu lt from 100 to 125 mg/dL suggests IMPAIRED HOMEOSTASIS per A.D.A. criteria. Neutrophils (Bld) [#/Vol] 4.2 10*3/uL 2.0-7.7 [facility] Work Phone: [phone] Neutrophils/100 WBC (Bld) 61.0 % 47-70 [facility] Work Phone: [phone] Potassium [Moles/Vol] 4.2 mmol/L 3.5-5.1 [facility] Work Phone: [phone] Protein [Mass/Vol] 7.2 g/dL 6.4-8.2 [facility] Work Phone: Sodium [Moles/Vol] 134 mmol/L 136-145 [facility] Work Phone: WBC (Bld) [#/Vol] 7.0 10*3/uL 4.4-11.0 [facility] Work Phone: Blood erythrocytes count (nu mber/volume)on 03-20-2022 RBC (Bld) [#/Vol] 5.43 10*6/uL 4.6-6.[address] [facility]: Blood hemoglobin measurement (mass/volume)on 03-20-2022 Hemoglobin (Bld) [Mass/Vol] 15.8 g/dL 13.0-16.5 [facility] Work Phone: Blood lymphocytes/100 leukoc yteson 03-20-2022 Lymphocytes/100 WBC (Bld) 28.7 % 19-41 [facility] Work Phone: Blood monocytes/100 leukocyt eson 03-20-2022 Monocytes/100 WBC (Bld) 7.2 % 0-10 [facility] Work Phone: Blood platelet mean volumeon 03-20-2022 Platelet mean volume (Bld) [Entitic vol] 9.3 fL 6.2-12.0 [facility] Work Phone: Determination of erythrocyte mean corpuscular volume (MCV)on 03-20-2022 MCV (RBC) [Entitic vol] 86.6 fL 80-94 [facility] Work Phone: Hematocrit Auto (Bld) [Volum e fraction]on 03-20-2022 Hematocrit (Bld) [Volume fraction] 47.0 % 40-54 [facility] Work Phone: Laboratory - Chemistry and C hemistry - challengeon 03-20-2022 ALP [Catalytic activity/Vol] 81 U/L 45-117 [facility] Work Phone: ALT [Catalytic activity/Vol] 41 U/L 16-61 [facility] Work Phone: CO2 [Moles/Vol] 29.0 mmol/L 21.0-32.0 [facility] Work Phone: Globulin (S) [Mass/Vol] 3.0 g/dL 2.2-4.2 [facility] Work Phone: Urea nitrogen/Creatinine [Mass ratio] 8.7 mg/mg 10-20 [facility] Work Phone: Laboratory - Hematology and Cell countson 03-20-2022 Erythrocyte distribution width (RBC) [Entitic vol] 42.5 fL 35.1-43.9 [facility] Work Phone: Erythrocyte distribution width (RBC) [Ratio] 13.5 % 11.6-14.6 [facility] Work Phone: Immature granulocytes/100 WBC (Bld) 0.400 % 0.0-0.9 [facility] Work Phone: Comment on above: IG% - Immature Granu locytes (promyelocytes, myelocytes and metamyelocytes) > 1% indicates that a LEFT SHIFT is Present. MCH (RBC) [Entitic mass] 29.1 pg 27.0-32.0 [facility] Work Phone: Nucleated RBC/100 WBC (Bld) [Ratio] 0 % 0-5 [facility] Work Phone: MCHC Auto (RBC) [Mass/Vol]on 03-20-2022 MCHC (RBC) [Mass/Vol] 33.6 g/dL 32-36 [facility] Work Phone: No Panel Informationon 03-20 Estimated GFR (MDRD) Amer 106 mL/min >60 [facility] Work Phone: Comment on above: GFR Calc Estimated GFR (MDRD) Non-Af Amer 88 mL/min >60 [facility] Work Phone: Comment on above: Non- GFR Calc Thyroid Stimulating Hormone (TSH) 0.57 uIU/mL 0.358-3.74 [facility] Work Phone: Vitamin D 25-Hydroxy 26.7 ng/mL [facility] Work Phone: Comment on above: Vitamin D 25(OH) Sta tus Range Deficiency <20 ng/mL (50nmol/L) Insufficiency 20 - 30 ng/mL (50 - 75 nmol/L) Sufficiency 30 - 100 ng/mL (75 - 250 nmol/L) Toxicity >100 ng/mL (>250 nmol/L) Platelets bldon 03-20-2022 Platelets (Bld) [#/Vol] 231 10*3/uL 150-450 [facility] Work Phone: Serum or plasma albumin messi urement (mass/volume)on 03-20-2022 Albumin [Mass/Vol] 4.2 g/dL 3.2-5.0 [facility] Work Phone: Serum or plasma albumin/glob ulin mass ratioon 03-20-2022 Albumin/Globulin [Mass ratio] 1.4 {ratio} 0.9-2.4 [facility] Work Phone: Serum or plasma calcium messi urement (mass/volume)on 03-20-2022 Calcium [Mass/Vol] 8.7 mg/dL 8.5-10.1 [facility] Work Phone: Serum or plasma creatinine m easurement (mass/volume)on 03-20-2022 Creatinine [Mass/Vol] 0.92 mg/dL 0.70-1.30 [facility] Work Phone: Comment on above: The validity of the calculated GFR & GFRAA in patients over 70 years has not been determined. Clinical correlation is essential. Serum or plasma urea nitroge n measurement (mass/volume)on 03-20-2022 Urea nitrogen [Mass/Vol] 8 mg/dL 7-18 [facility] Work Phone: Thin prep Papanicolaou smear with manual screeningon 03-20-2022 Thin prep Papanicolaou smear with manual screening 32 U/L 15-37 [facility] Work Phone: Thin prep Papanicolaou smear with manual screening 7 5-15 [facility] Work Phone: Gram stain for investigation of transfusion reactionon 01-04-2022 Microscopic observation Gram stain Nom (Unsp spec) [facility] Work Phone: No Panel Informationon 01-04 Methicillin-Resist S.aureus DNA PCR Negative Negative [facility] Work Phone: Staphylococcus aureus DNA de tection by probe and target amplification methodon 01-04-2022 S. aureus DNA BERNARDO+probe Ql (Unsp spec) Negative Negative [facility] Work Phone: COVID-19 virus antigen assay SARS-CoV-2 (COVID-19) Ag IA.rapid Ql (Resp) [facility] Work Phone: Clostridium difficile detect ion by polymerase chain reaction C. difficile DNA BERNARDO+probe Ql (Unsp spec) [facility] Work Phone: Culture, urine Bacteria identified Cx Nom (U) Klebsiella pneumoniae sp pneum [facility] Work Phone: Laboratory - Microbiology an d Antimicrobial susceptibility Bacteria identified Cx Nom (Bld) No growth in 5 days. [facility] Work Phone: No Panel Information Influenza Types A,B Direct FA (HEIDE) [facility] Work Phone: Vital Signs Date Time Vital Sign Value Performing Clinician Facility 08-18-2025 13:42-0400 Body height 187.[address] Ayad Brown MD Work Phone: [facility] 08-18-2025 13:42-0400 Body mass index (BMI) [Ratio] 38 kg/m2 Dr. Ayad Brown MD Work Phone: [facility] 08-18-2025 13:42-0400 Body weight 134.[address] Ayad Brown MD Work Phone: [facility] 08-18-2025 13:42-0400 Diastolic blood pressure 67 mm[Hg] Dr. Ayad Brown MD Work Phone: [facility] 08-18-2025 13:42-0400 Heart rate 65 /min Dr. Ayad Brown MD Work Phone: [facility] 08-18-2025 13:42-0400 Respiratory rate 20 /min Dr. Ayad Brown MD Work Phone: 1(363)598-655756 [place] [address] 08-18-2025 13:42-0400 Systolic blood pressure 119 mm[Hg] Dr. Ayad Brown MD Work Phone: 7(472)293-702056 [place] [address] 06-10-2025 14:22-0400 Body height 187.[address] Ayad Brown MD Work Phone: 1(857)641-335429 [place] [address] 06-10-2025 14:22-0400 Body mass index (BMI) [Ratio] 38.2 kg/m2 Dr. Ayad Brown MD Work Phone: 9(587)340-586256 [place] [address] 06-10-2025 14:22-0400 Body temperature 98.6 [degF] Dr. Ayad Brown MD Work Phone: 3(302)479-870456 [place] [address] 06-10-2025 14:22-0400 Body weight 135.[address] Ayad Brown MD Work Phone: 9(683)482-909056 [place] [address] 06-10-2025 14:22-0400 Diastolic blood pressure 72 mm[Hg] Dr. Ayad Brown MD Work Phone: [facility] 06-10-2025 14:22-0400 Heart rate 77 /min Dr. Ayad Brown MD Work Phone: [facility] 06-10-2025 14:22-0400 Respiratory rate 16 /min Dr. Ayad Brown MD Work Phone: [facility] 06-10-2025 14:22-0400 SaO2% (BldA) [Mass fraction] 94 % Dr. Ayad Brown MD Work Phone: [facility] 06-10-2025 14:22-0400 Systolic blood pressure 135 mm[Hg] Dr. Ayad Brown MD Work Phone: 7(159)434-101756 [place] [address] 03-01-2025 09:44-0400 Body height 187.[address] Ayad Brown MD Work Phone: 6(833)368-303929 [place] [address] 03-01-2025 09:44-0400 Body mass index (BMI) [Ratio] 37 kg/m2 Dr. Ayad Brown MD Work Phone: 1(413)746-185529 [place] [address] 03-01-2025 09:44-0400 Body weight 131.[address] Ayad Brown MD Work Phone: 8(613)029-994429 [place] [address] 03-01-2025 09:44-0400 Diastolic blood pressure 75 mm[Hg] Dr. Ayad Brown MD Work Phone: 9(662)811-564229 [place] [address] 03-01-2025 09:44-0400 Heart rate 59 /min Dr. Ayad Brown MD Work Phone: 3(255)254-487829 [place] [address] 03-01-2025 09:44-0400 Respiratory rate 18 /min Dr. Ayad Brown MD Work Phone: 5(777)607-557829 [place] [address] 03-01-2025 09:44-0400 SaO2% (BldA) [Mass fraction] 95 % Dr. Ayad Brown MD Work Phone: 4(384)729-735829 [place] [address] 03-01-2025 09:44-0400 Systolic blood pressure 119 mm[Hg] Dr. Ayad Brown MD Work Phone: 7(337)855-418729 [place] [address] 12-23-2023 13:23-0500 Body height 182.[address] Ayad Brown Work Phone: 4(412)826-634029 [place] [address] 12-23-2023 13:23-0500 Body mass index (BMI) [Ratio] 37.1 kg/m2 Dr. Ayad Brown Work Phone: 5(449)019-148129 [place] [address] 12-23-2023 13:23-0500 Body temperature 98.4 [degF] Dr. Ayad Brown Work Phone: 8(090)035-501729 [place] [address] 12-23-2023 13:23-0500 Body weight 124.[address] Ayad Brown Work Phone: 4(713)654-320429 [place] [address] 12-23-2023 13:23-0500 Diastolic blood pressure 80 mm[Hg] Dr. Ayad Brown Work Phone: 5(432)177-969029 [place] [address] 12-23-2023 13:23-0500 Heart rate 81 /min Dr. Ayad Brown Work Phone: 7(864)709-107729 [place] [address] 12-23-2023 13:23-0500 Respiratory rate 17 /min Dr. Ayad Brown Work Phone: 2(312)049-881829 [place] [address] 12-23-2023 13:23-0500 SaO2% (BldA) [Mass fraction] 95 % Dr. Ayad Brown Work Phone: 2(445)999-249729 [place] [address] 12-23-2023 13:23-0500 Systolic blood pressure 142 mm[Hg] Dr. Ayad Brown Work Phone: 7(858)098-246129 [place] [address] 06-25-2023 08:18-0400 Body height 182.[address] Ayad Brown Work Phone: 5(140)147-091229 [place] [address] 06-25-2023 08:18-0400 Body mass index (BMI) [Ratio] 37.8 kg/m2 Dr. Ayad Brown Work Phone: 5(389)852-894729 [place] [address] 06-25-2023 08:18-0400 Body temperature 97.9 [degF] Dr. Ayad Brown Work Phone: 3(754)767-339229 [place] [address] 06-25-2023 08:18-0400 Body weight 126.[address] Ayad Brown Work Phone: 0(584)702-966129 [place] [address] 06-25-2023 08:18-0400 Diastolic blood pressure 76 mm[Hg] Dr. Ayad Brown Work Phone: 5(564)370-739829 [place] [address] 06-25-2023 08:18-0400 Heart rate 75 /min Dr. Ayad Brown Work Phone: 9(562)069-923829 [place] [address] 06-25-2023 08:18-0400 Respiratory rate 17 /min Dr. Ayad Brown Work Phone: 0(638)318-645129 [place] [address] 06-25-2023 08:18-0400 SaO2% (BldA) [Mass fraction] 95 % Dr. Ayad Brown Work Phone: [facility] 06-25-2023 08:18-0400 Systolic blood pressure 138 mm[Hg] Dr. Ayad Brown Work Phone: [facility] 03-26-2023 15:11-0400 Body height 182.9 cm Johnathan Keller PA-C Work Phone: [facility] 03-26-2023 15:11-0400 Body temperature 98.29 [degF] Johnathan Keller PA-C Work Phone: [facility] 03-26-2023 15:11-0400 Body weight 112.04 kg Johnathan Keller PA-C Work Phone: [facility] 03-26-2023 15:11-0400 Diastolic blood pressure 82 mm[Hg] Johnathan Keller PA-C Work Phone: [facility] 03-26-2023 15:11-0400 Heart rate 76 /min Johnathan Keller PA-C Work Phone: [facility] 03-26-2023 15:11-0400 Respiratory rate 14 /min Johnathan Keller PA-C Work Phone: [facility] 03-26-2023 15:11-0400 SaO2% (BldA) [Mass fraction] 96 % Johnathan Keller PA-C Work Phone: [facility] 03-26-2023 15:11-0400 Systolic blood pressure 140 mm[Hg] Johnathan Keller PA-C Work Phone: [facility] 02-26-2023 09:48-0400 Diastolic blood pressure 74 mm[Hg] Dr. Ayad Brown Work Phone: [facility] 02-26-2023 09:48-0400 Heart rate 84 /min Dr. Ayad Brown Work Phone: [facility] 02-26-2023 09:48-0400 Systolic blood pressure 120 mm[Hg] Dr. Ayad Brown Work Phone: [facility] 02-26-2023 09:03-0400 Body height 182.[address] Ayad Brown Work Phone: [facility] 02-26-2023 09:03-0400 Body mass index (BMI) [Ratio] 32.2 kg/m2 Dr. Ayad Brown Work Phone: [facility] 02-26-2023 09:03-0400 Body temperature 98.6 [degF] Dr. Ayad Brown Work Phone: [facility] 02-26-2023 09:03-0400 Body weight 107.[address] Ayad Brown Work Phone: [facility] 02-26-2023 09:03-0400 Respiratory rate 17 /min Dr. Ayad Brown Work Phone: [facility] 02-26-2023 09:03-0400 SaO2% (BldA) [Mass fraction] 97 % Dr. Ayad Brown Work Phone: [facility] 09-21-2022 15:33-0400 Body temperature 97.6 [degF] Dr. Ayad Brown Work Phone: [facility] Work Phone: 09-21-2022 15:33-0400 Diastolic blood pressure 83 mm[Hg] Dr. Ayad Brown Work Phone: [facility] Work Phone: 09-21-2022 15:33-0400 Heart rate 84 /min Dr. Ayad Brown Work Phone: [facility] Work Phone: 09-21-2022 15:33-0400 Respiratory rate 19 /min Dr. Ayad Brown Work Phone: [facility] Work Phone: 09-21-2022 15:33-0400 SaO2% (BldA) [Mass fraction] 97 % Dr. Ayad Brown Work Phone: [facility] Work Phone: 09-21-2022 15:33-0400 Systolic blood pressure 150 mm[Hg] Dr. Ayad Brown Work Phone: [facility] Work Phone: 09-21-2022 11:00-0400 Inhaled oxygen flow rate 97 L/min Dr. Ayad Brown Work Phone: [facility] Work Phone: 09-16-2022 10:19-0400 Body height 184.[address] Ayad Brown Work Phone: [facility] Work Phone: 09-16-2022 10:19-0400 Body weight 98.[address] Ayad Brown Work Phone: [facility] Work Phone: 09-15-2022 17:56-0400 Body mass index (BMI) [Ratio] 28.8 kg/m2 Dr. Ayad Brown Work Phone: [facility] Work Phone: 09-15-2022 16:56-0400 Body temperature 98.9 [degF] Dr. Ayad Brown Work Phone: [facility] Work Phone: 09-15-2022 16:56-0400 Diastolic blood pressure 74 mm[Hg] Dr. Ayad Brown Work Phone: [facility] Work Phone: 09-15-2022 16:56-0400 Heart rate 89 /min Dr. Ayad Brown Work Phone: [facility] Work Phone: 09-15-2022 16:56-0400 Respiratory rate 24 /min Dr. Ayad Brown Work Phone: [facility] Work Phone: 09-15-2022 16:56-0400 SaO2% (BldA) [Mass fraction] 94 % Dr. Ayad Brown Work Phone: [facility] Work Phone: 09-15-2022 16:56-0400 Systolic blood pressure 139 mm[Hg] Dr. Ayad Brown Work Phone: [facility] Work Phone: 09-15-2022 14:34-0400 Body height 185.[address] Ayad Brown Work Phone: [facility] Work Phone: 09-15-2022 14:34-0400 Body mass index (BMI) [Ratio] 27.6 kg/m2 Dr. Ayad Brown Work Phone: [facility] Work Phone: 09-15-2022 14:34-0400 Body weight 95.[address] Ayad Brown Work Phone: [facility] Work Phone: 08-07-2022 00:00-0400 Respiratory rate 16 /min Dr. Ayad Brown Work Phone: [facility] Work Phone: 08-06-2022 22:23-0400 Diastolic blood pressure 76 mm[Hg] Dr. Ayad Brown Work Phone: [facility] Work Phone: 08-06-2022 22:23-0400 Heart rate 82 /min Dr. Ayad Brown Work Phone: [facility] Work Phone: 08-06-2022 22:23-0400 SaO2% (BldA) [Mass fraction] 96 % Dr. Ayad Brown Work Phone: [facility] Work Phone: 08-06-2022 22:23-0400 Systolic blood pressure 138 mm[Hg] Dr. Ayad Brown Work Phone: [facility] Work Phone: 08-06-2022 20:53-0400 Body height 182.[address] Ayad Brown Work Phone: [facility] Work Phone: 08-06-2022 20:53-0400 Body mass index (BMI) [Ratio] 33.3 kg/m2 Dr. Ayad Brown Work Phone: [facility] Work Phone: 08-06-2022 20:53-0400 Body temperature 97.7 [degF] Dr. Ayad Brown Work Phone: [facility] Work Phone: 08-06-2022 20:53-0400 Body weight 111.[address] Ayad Brown Work Phone: [facility] Work Phone: 06-16-2022 19:20-0400 Body height 187.[address] Ayad Brown Work Phone: [facility] Work Phone: 06-16-2022 19:20-0400 Body mass index (BMI) [Ratio] 33.3 kg/m2 Dr. Ayad Brown Work Phone: [facility] Work Phone: 06-16-2022 19:20-0400 Body temperature 98 [degF] Dr. Ayad Brown Work Phone: [facility] Work Phone: 06-16-2022 19:20-0400 Body weight 117.[address] Ayad Brown Work Phone: [facility] Work Phone: 06-16-2022 19:20-0400 Diastolic blood pressure 80 mm[Hg] Dr. Ayad Brown Work Phone: [facility] Work Phone: 06-16-2022 19:20-0400 Heart rate 84 /min Dr. Ayad Brown Work Phone: [facility] Work Phone: 06-16-2022 19:20-0400 Respiratory rate 16 /min Dr. Ayad Brown Work Phone: [facility] Work Phone: 06-16-2022 19:20-0400 SaO2% (BldA) [Mass fraction] 96 % Dr. Ayad Brown Work Phone: [facility] Work Phone: 06-16-2022 19:20-0400 Systolic blood pressure 161 mm[Hg] Dr. Ayad Brown Work Phone: [facility] Work Phone: 05-30-2022 17:20-0400 Body height 182.[address] Ayad Brown Work Phone: [facility] Work Phone: 05-30-2022 17:20-0400 Body mass index (BMI) [Ratio] 34.8 kg/m2 Dr. Ayad Brown Work Phone: [facility] Work Phone: 05-30-2022 17:20-0400 Body temperature 98.5 [degF] Dr. Ayad Brown Work Phone: [facility] Work Phone: 05-30-2022 17:20-0400 Body weight 116.[address] Ayad Brown Work Phone: [facility] Work Phone: 05-30-2022 17:20-0400 Diastolic blood pressure 89 mm[Hg] Dr. Ayad Brown Work Phone: [facility] Work Phone: 05-30-2022 17:20-0400 Heart rate 95 /min Dr. Ayad Brown Work Phone: [facility] Work Phone: 05-30-2022 17:20-0400 Respiratory rate 15 /min Dr. Ayad Brown Work Phone: [facility] Work Phone: 05-30-2022 17:20-0400 SaO2% (BldA) [Mass fraction] 100 % Dr. Ayad Brown Work Phone: [facility] Work Phone: 05-30-2022 17:20-0400 Systolic blood pressure 165 mm[Hg] Dr. Ayad Brown Work Phone: [facility] Work Phone: 04-25-2022 09:23-0400 Body mass index (BMI) [Ratio] 34.8 kg/m2 Dr. Ayad Brown Work Phone: [facility] Work Phone: 04-25-2022 09:23-0400 Body weight 116.[address] Ayad Brown Work Phone: [facility] Work Phone: 04-25-2022 09:23-0400 Diastolic blood pressure 81 mm[Hg] Dr. Ayad Brown Work Phone: [facility] Work Phone: 04-25-2022 09:23-0400 Respiratory rate 18 /min Dr. Ayad Brown Work Phone: [facility] Work Phone: 04-25-2022 09:23-0400 Systolic blood pressure 163 mm[Hg] Dr. Ayad Brown Work Phone: [facility] Work Phone: Encounters Encounter Date Encounter Type Care Provider Facility Start: 08-18-2025 End: 08-18-[address] Ayad Brown MD Work Phone: -[facility] Start: 08-18-2025 End: 08-18-[address] Aleexi Locke MD -[facility] Work Phone: Start: 08-03-2025 ambulatory Ayad Brown Facility:[facility] Start: 08-03-[address] Nadia Fisher MD -[facility] Start: 07-06-2025 End: 07-06-2025 Patient encounter procedure Johnathan Keller PA-C Work Phone: Urology Comment on above: Sujey rash of groi n (Primary Dx); Rash of groin; Benign prostatic hyperplasia without lower urinary tract symptoms; Screening for genitourinary condition; Pain in testicle, unspecified laterality Start: 07-06-2025 End: 07-06-2025 ambulatory JOHNATHAN KELLER Facility:[facility] Start: 06-10-2025 End: 06-10-[address] Paul Connor MD -[facility] Work Phone: Start: 06-10-2025 End: 06-10-[address] Ayad Brown MD Work Phone: [facility] Start: 05-03-2025 End: 05-05-2025 Telephone encounter Johnathan Keller PA-C Work Phone: Urology Comment on above: Appointment Start: 04-28-2025 End: 04-28-[address] Ayad Brown MD Work Phone: [facility] Work Phone: Start: 04-28-2025 End: 04-28-[address] Nadia Fisher MD -[facility] Start: 04-28-2025 End: 04-28-2025 ambulatory Ayad Chi Kevin Facility:[facility] Start: 04-12-2025 ambulatory Ayad Chi Kevin Facility:[facility] Start: 04-12-[address] Nadia Fisher MD -[facility] Start: 03-12-2025 ambulatory Ayad Chi Kevin Facility:[facility] Start: 03-12-[address] Nadia Fisher MD -[facility] Start: 03-11-2025 ambulatory Ayad Chi Kevin Facility:[facility] Start: 03-11-[address] Nadia Fisher MD -[facility] Start: 03-01-2025 End: 03-01-[address] Alexei Locke [facility] Work Phone: Start: 03-01-2025 End: 03-01-2025 ambulatory Ayad Chi Kevin Facility:[facility] Start: 01-13-2025 ambulatory Ayad Chi Kevin Facility:[facility] Start: 12-10-2024 End: 12-10-2024 ambulatory Ayad Chi Kevin Facility:[facility] Start: 11-28-2024 ambulatory Ayad Chi Kevin Facility:[facility] Start: 11-27-2024 End: 11-27-2024 ambulatory Ayad Chi Kevin Facility:[facility] Start: 10-28-2024 ambulatory Ayad Chi Kevin Facility:[facility] Start: 10-21-2024 End: 10-21-2024 ambulatory Ayad Chi Kevin Facility:[facility] Start: 09-29-2024 End: 09-29-2024 ambulatory Ayad Chi Kevin Facility:[facility] Start: 09-18-2024 End: 09-18-2024 ambulatory Nadia Edvindla OLS Facility:[facility] Start: 09-14-2024 End: 09-14-2024 ambulatory Ayad Chi Kevin Facility:[facility] Start: 09-07-2024 End: 09-07-2024 ambulatory Ayad Chi Kevin Facility:[facility] Start: 09-04-2024 End: 09-04-2024 ambulatory Ayad Chi Kevin Facility:[facility] Start: 09-03-2024 End: 09-03-2024 ambulatory Ayad Chi Kevin Facility:[facility] Start: 08-28-2024 End: 08-28-2024 ambulatory Ayad Chi Kevin Facility:[facility] Start: 01-17-2024 End: 01-17-[address] Ayad Brown Work Phone: [facility] Work Phone: Start: 01-17-2024 End: 01-17-[address] Ayad Brown Work Phone: [facility] Start: 12-23-2023 End: 12-23-[address] Ayad Brown Work Phone: [facility] Work Phone: Start: 10-23-2023 End: 10-23-[address] Ayad Brown Work Phone: [facility] Start: 10-23-2023 Registered Referred [facility] Start: 10-14-2023 End: 10-14-2023 ambulatory [facility] Work Phone: Start: 10-14-2023 End: 10-14-2023 Departed Referred [facility] Start: 07-01-2023 End: 07-01-[address] Ayad Brown Work Phone: [facility] Work Phone: Start: 07-01-2023 End: 07-01-[address] Ayad Brown Work Phone: [facility] Start: 07-01-[address] Ayad mills Work Phone: [facility] Start: 06-25-2023 End: 06-25-[address] Ayad Brown Work Phone: [facility] Work Phone: Start: 06-10-2023 End: 06-10-[address] Ayad Brown Work Phone: [facility] Work Phone: Start: 06-10-2023 End: 06-10-[address] Ayad Brown Work Phone: [facility] Start: 05-02-2023 End: 05-02-[address] Ayad Brown Work Phone: [facility] Work Phone: Start: 04-11-2023 End: 04-11-[address] Ayad Brown Work Phone: [facility] Start: 04-03-2023 End: 04-03-[address] Ayad Brown Work Phone: [facility] Start: 03-27-2023 Telephone encounter Johnathan Santi RÍOS-C Work Phone: Urology Comment on above: [employer] Start: 03-26-2023 End: 03-26-2023 Patient encounter procedure Johnathan RÍOS-C Work Phone: Urology Comment on above: Benign prostatic hyp erplasia without lower urinary tract symptoms (Primary Dx); Acute cystitis without hematuria Start: 03-25-2023 Telephone encounter Johnathan RÍOS-C Work Phone: Urology Comment on above: Received Outside [facility] Records Start: 02-26-2023 End: 02-26-[address] Ayad Brown Work Phone: [facility] Start: 02-11-2023 End: 02-11-[address] Ayad Brown Work Phone: [facility] Work Phone: Start: 02-11-2023 End: 02-11-[address] Ayad Brown Work Phone: [facility] Start: 02-11-2023 Registered Referred [facility] Start: 02-09-2023 End: 02-09-2023 ambulatory [facility] Work Phone: Start: 02-09-2023 End: 02-09-2023 Departed Referred [facility] Start: 02-09-2023 Registered Referred [facility] Start: 01-14-2023 End: 01-14-[address] Ayad Brown Work Phone: [facility] Work Phone: Start: 01-14-2023 End: 01-14-[address] Ayad Brown Work Phone: [facility] Start: 01-14-2023 Registered Referred [facility] Start: 11-13-2022 End: 11-13-[address] Ayad Brown Work Phone: [facility] Start: 11-13-[address] Ayad mills Work Phone: [facility] Start: 11-06-2022 End: 11-06-[address] Ayad Brown Work Phone: [facility] Work Phone: Start: 11-06-2022 End: 11-06-[address] Ayad Brown Work Phone: [facility] Start: 11-06-[address] Ayad mills Work Phone: [facility] Start: 10-30-2022 End: 10-30-[address] Ayad Brown Work Phone: [facility] Work Phone: Start: 10-30-2022 End: 10-30-[address] Ayad Brown Work Phone: [facility] Start: 10-30-[address] Ayad mills Work Phone: [facility] Start: 10-23-2022 End: 10-23-[address] Ayad Brown Work Phone: [facility] Work Phone: Start: 10-23-2022 End: 10-23-[address] Ayad Brown Work Phone: [facility] Start: 10-16-[address] Ayad mills Work Phone: [facility] Start: 10-08-[address] Ayad mills Work Phone: [facility] Start: 10-01-[address] Ayad mills Work Phone: [facility] Start: 09-26-[address] Ayad mills Work Phone: [facility] Start: 09-24-[address] Ayad mills Work Phone: [facility] Start: 09-21-2022 Non-patient / Non-visit Dr. Carlos Brown Work Phone: [facility] Start: 09-20-2022 Non-patient / Non-visit Dr. Carlos Brown Work Phone: [facility] Start: 09-19-2022 Non-patient / Non-visit Dr. Carlos Brown Work Phone: [facility] Start: 09-18-2022 Non-patient / Non-visit Dr. Carlos Brown Work Phone: [facility] Start: 09-17-2022 Non-patient / Non-visit Dr. Carlos Brown Work Phone: [facility] Start: 09-16-2022 Non-patient / Non-visit Dr. Carlos Brown Work Phone: [facility] Start: 09-15-2022 Non-patient / Non-visit Dr. Carlos Brown Work Phone: [facility] Start: 09-15-2022 End: 09-21-2022 Evaluation and management of inpatient [facility]ad [facility] Start: 09-13-[address] Ayad lord [facility] Start: 08-06-2022 End: 08-07-2022 Emergency department patient visit Dr. Ayad Brown Work Phone: [facility] Start: 07-26-2022 End: 07-26-[address] Ayad Brown Work Phone: [facility] Work Phone: Start: 07-26-2022 End: 07-26-[address] [facility] Start: 07-18-2022 End: 07-18-[address] Ayad Brown Work Phone: [facility] Start: 06-16-2022 End: 06-16-2022 Emergency department patient visit Dr. Ayad Brown Work Phone: [facility] Start: 05-30-2022 End: 05-30-2022 Emergency department patient visit Dr. Ayad Brown Work Phone: [facility] Start: 05-23-2022 End: 05-23-[address] Ayad Brown Work Phone: [facility] Start: 04-25-2022 End: 04-25-[address] Ayad Brown Work Phone: [facility] Start: 04-03-2022 End: 04-03-2022 Patient encounter procedure [facility]Pulmonary Services/Neurology Start: 03-20-2022 End: 03-20-2022 Patient encounter procedure [facility]Laboratory, Phy Office 3rd Flr Start: 01-04-2022 End: 01-04-2022 Patient encounter procedure [facility]Laboratory, Specimen Procedures Date Procedure Procedure Detail Performing Clinician Start: 05-02-2023 MRI of brain with contrast Dr. Ayad Brown Work Phone: Start: 03-26-2023 Urnls dip stick/tabl et rgnt auto w/o microscopy Johnathan Keller PA-C Work Phone: Start: 09-18-2022 CT of head without contrast Dr. Ayad Brown Work Phone: Start: 09-15-2022 Plain chest X-ray Dr. Julian Brown Work Phone: Start: 09-15-2022 CT of head without contrast Dr. Ayad Brown Work Phone: Start: 08-06-2022 Plain x-ray of pelvi s and lower extremity Dr. Ayad Brown Work Phone: Start: 08-06-2022 CT of head without contrast Dr. Ayad Brown Work Phone: Start: 07-18-2022 CT of head without contrast Dr. Ayad Brown Work Phone: Start: 06-16-2022 Plain x-ray of pelvi s and lower extremity Dr. Ayad Brown Work Phone: Start: 04-03-2022 Influenza Types A,B Direct FA (HEIDE) Start: 04-03-2022 End: 04-03-2022 Respiratory syncytial virus antigen assay Start: 01-04-2022 Investigation of transfusion reaction Start: 01-04-2022 End: 01-04-2022 Microbial culture, routine Bacteria identified in Blood by Culture Dr. Ayad Brown Work Phone: Clostridium difficil e detection Dr. Ayad Brown Work Phone: Influenza Types A,B Direct FA (HEIDE) Dr. Ayad Brown Work Phone: Respiratory syncytia l virus antigen assay Dr. Ayad Brown Work Phone: Urine culture Dr. Ayad Brown Work Phone: Urine culture Urine culture Viral antigen assay Dr. Ayad Brown Work Phone: Plan of Treatment Date Care Activity Detail Author Start: 05-30-2032 Urine microalbumin profile DTaP,Tdap,Td Vaccine (3 - Td or Tdap) [facility] Start: 2030 RSV Vaccine (1 - 1-d ose 75+ series) RSV Vaccine (1 - 1-dose 75+ series) [facility] Start: 08-02-2025 Influenza vaccination C [facility] Start: 05-18-2025 End: 05-18-2025 Patient encounter procedure 05/18/2025 11:30 AM EDT Office Visit Urology [address] [place] [address] Johnathan Keller PA-C [address] [place] [address] CONSULT: Testicular Pain/Discomfort. NAOMI for BPH. [facility] to fax US report. [facility] U[facility] Comment on above: CONSULT: Testicular Pain/Discomfort. NAOMI for BPH. [facility] to fax US report. [facility] Start: 12-02-2024 Advance Directive Discussion Advance Directive Discussion [facility] Start: 12-02-2024 Medicare Advantage A nnual Wellness Visit Medicare Advantage Annual Wellness Visit [facility] Start: 08-02-2024 Covid-19 Vaccine ( season) Covid-19 Vaccine ( season) [facility] Start: 08-02-2023 Influenza vaccination INFLUENZ A (Season Ended) [facility] Start: 12-02-2022 ADVANCE DIRECTIVE DISCUSSION ADVANCE DIRECTIVE DISCUSSION [facility] Start: 12-02-2022 DEPRESSION ASSESSMENT DEPRESSION ASS ESSMENT [facility] Start: 09-25-2022 Blood chemistry [facility] Work Phone: Start: 09-24-2022 Blood chemistry [facility] Work Phone: Start: 09-23-2022 Blood chemistry [facility] Work Phone: Start: 09-22-2022 Blood chemistry [facility] Work Phone: Start: 09-21-2022 [facility] Work [facility]: Start: 09-21-2022 Fluid restriction [facility] Work Phone: Start: 09-20-2022 Removal of urinary catheter [facility] Work Phone: Start: 09-16-2022 Introduction of urin benjy catheter [facility] Work Phone: Start: 09-15-2022 Following clinical pathway protocol [facility] Work Phone: Start: 09-15-2022 Assessment of risk o f venous thromboembolism [facility] Work Phone: Start: 09-15-2022 Insertion of cathete r into peripheral vein [facility] Work Phone: Start: 09-15-2022 Providing care accor ding to standard [facility] Work Phone: Start: 09-15-2022 Provision of activit y privileges [facility] Work Phone: Start: 09-15-2022 Referral to occupati onal therapist [facility] Work Phone: Start: 09-15-2022 Referral to service [facility] Work Phone: Start: 09-15-2022 Speech therapy assessment [facility] Work Phone: Start: 09-15-2022 [facility] Work Phone: Start: 09-15-2022 Verification routine [facility] Work Phone: Start: 09-15-2022 Admission procedure [facility] Work Phone: Start: 09-15-2022 [facility] Work Phone: Start: 09-15-2022 Plain chest X-ray Chest 1 View (Port able) [facility] Work Phone: Start: 09-15-2022 XR Chest Single view [facility] Work Phone: Start: 09-15-2022 End: 09-15-2022 Blood culture [facility] Work Phone: Start: 09-15-2022 Inhalation therapy procedure [facility] Work Phone: Start: 09-15-2022 Patient referral to dietitian [facility] Work Phone: Start: 05-15-2022 COVID-19 VACCINE (5 - Booster for Moderna series) COVID-19 VACCINE (5 - Booster for Moderna series) [facility] Start: 2020 PNEUMOCOCCAL: 65+ (1 - PCV) PNEUMOCOCCAL: 65+ (1 - PCV) [facility] Start: 2010 PROSTATE CANCER SCRE ENING DISCUSSION PROSTATE CANCER SCREENING DISCUSSION [facility] Start: 2005 SHINGRIX VACCINE (1 of 2) BUNDY GRIX VACCINE (1 of 2) [facility] Start: 2000 COLOGUARD (FIT-DNA) COLOGUARD (FIT-D NA) [facility] Start: 2000 Colonoscopy COLONOSCOPY [facility] Start: 2000 COLORECTAL CANCER SCREENING COLORECTAL CANCER SCREENING [facility] Start: [address] COLONOGRAPHY [facility] Start: 2000 DIABETES SCREEN DIABETES SCREEN [facility] Start: 2000 Diabetes Screening Diabetes Screenin g [facility] Start: 2000 FECAL OCCULT BLOOD FECAL OCCULT BLOO D [facility] Start: 2000 Screening for malign ant neoplasm of colon [facility] Start: 2000 SIGMOIDOSCOPY SIGMOIDOSCOPY [facility] Start: 1990 Lipid panel Lipid Screening [facility] Start: 1990 LIPID SCREEN LIPID SCREEN [facility] Start: 1974 Urine microalbumin profile DTAP,TDAP,TD (1 - Tdap) [facility] Start: 1973 Anxiety Screening Anxiety Screening [facility] Start: 1973 Depression Screening Depression Scre ening [facility] Start: 1973 HEPATITIS C SCREENING HEPATITIS C [facility] Start: 1973 Hepatitis C screening Hepatitis C [facility] Start: 02-27-1956 COVID-19 VACCINE (#1) COVID-19 VACCI NE (#1) [facility] Start: 1955 ABDOMINAL AORTIC ANE URYSM SCREENING ABDOMINAL AORTIC ANEURYSM SCREENING [facility] Start: 1955 Abdominal aortic ane urysm screening Abdominal Aortic Aneurysm Screening [facility] Anion gap measurement [facility] Work Phone: Bacteria identified in Blood by Culture Blood Culture [facility] Work Phone: Bacteria identified in Urine by Culture Urine Culture [facility] Work Phone: Blood culture [facility] Work Phone: BUN/Creatinine ratio [facility] Work Phone: Calcium [Mass/volume ] in Serum or Plasma [facility] Work Phone: Carbon dioxide, tota l [Moles/volume] in Serum or Plasma [facility] Work Phone: Chloride [Moles/volu me] in Serum or Plasma [facility] Work Phone: Creatinine [Moles/vo lume] in Serum or Plasma [facility] Work Phone: Glucose [Mass/volume ] in Serum or Plasma [facility] Work Phone: Hematocrit [Volume Fraction] of Blood [facility] Work Phone: Hemoglobin [Mass/vol ume] in Blood [facility] Work Phone: Leukocytes [#/volume ] in Blood [facility] Work Phone: Mean corpuscular hemoglobin concentration determination [facility] Work Phone: Mean corpuscular hemoglobin determination [facility] Work Phone: Measurement of renal function [facility] Work Phone: Neutrophil count [facility] Work Phone: Neutrophil percent differential count [facility] Work Phone: Patient Education [facility] Work Phone: Patient referral [facility] Work Phone: Platelets [#/volume] in Blood [facility] Work Phone: POST VOID RESIDUAL POST VOID RES IDUAL Procedures Routine Benign prostatic hyperplasia without lower urinary tract symptoms Screening for genitourinary condition Ordered: 07/06/2025 [facility] Work Phone: Comment on above: Ordered: 07/06/2025 Potassium [Moles/vol ume] in Serum or Plasma [facility] Work Phone: Red blood cell count [facility] Work Phone: Red cell distributio n width determination [facility] Work Phone: Sodium [Moles/volume ] in Serum or Plasma [facility] Work Phone: Urea nitrogen [Mass/volume] in Serum or Plasma [facility] Work Phone: [facility] Immunizations Immunization Date Immunization Notes Care Provider Fa [facility] 05-30-2022 tetanus toxoid, redu sybil diphtheria toxoid, and acellular pertussis vaccine, adsorbed Dr. Ayad Brown Work Phone: [facility] 03-20-2022 Covid (Moderna) Dr. Ayad Brown Work Phone: [facility] 09-19-2021 Covid (Moderna) Dr. Ayad Brown Work Phone: [facility] 09-19-2021 influenza virus vaccine, unspecified formulation Johnathan Keller PA-C Work Phone: [facility] 01-17-2021 Covid (Moderna) Dr. Ayad Brown Work Phone: [facility] 12-21-2020 Covid (Moderna) Dr. Ayad Brown Work Phone: [facility] 08-04-2019 Influenza virus vaccine [facility] Payers Date Payer Category Payer Medicare (Managed Care) 1.2. [id number] 2024 Self-pay [id number] 2024 Medicare [id number] 2013 Medicaid [id number] 2010 Medicare [id number] 2010 Medicare MEDICARE MEDICAR E A AND B [id number] 2010-[facility] [phone] [place] [address] Medicare [id number] 2009 Medicaid [id number] Unknown [id number] 62 Unknown [id number] 2.16.840.1.514226.3.579.2.4 62 Unknown [id number] 2.16.840.1.225221.3.579.2.4 62 Unknown [id number] 2.16.840.1.373872.3.579.2.4 62 Unknown [id number] 2.16.840.1.676260.3.579.2.4 62 Unknown [id number] 2.16.840.1.456219.3.579.2.4 62 Unknown [id number] 2.16.840.1.250467.3.579.2.4 62 Unknown [id number] 2.16.840.1.182269.3.579.2.4 62 Unknown [id number] 2.16.840.1.339368.3.579.2.4 62 Unknown [id number] 2.16.840.1.550253.3.579.2.4 62 Unknown [id number] 2.16.840.1.195032.3.579.2.4 62 Unknown [id number] 2.16.840.1.142218.3.579.2.4 62 Unknown [id number] 2.16.840.1.882221.3.579.2.4 62 Unknown [id number] 2.16.840.1.058436.3.579.2.4 62 Unknown [id number] 2.16.840.1.507703.3.579.2.4 62 Unknown [id number] 2.16.840.1.664485.3.579.2.4 62 Unknown [id number] 2.16.840.1.315541.3.579.2.4 62 Unknown [id number] 2.16.840.1.375074.3.579.2.4 62 Unknown [id number] 2.16.840.1.915214.3.579.2.4 62 Unknown [id number] 2.16.840.1.481605.3.579.2.4 62 Unknown [id number] 2.16.840.1.765278.3.579.2.4 62 Unknown [id number] 2.16.840.1.683186.3.579.2.4 62 Social History Date Type Detail Facility Start: 06-05-2021 End: 12-23-2023 Tobacco smoking status [facility] Unknown if ever smoked [facility] Start: 02-23-[address] [facility] Start: 02-23-[address] [facility] Start: 04-14-[address] [facility] Start: 1955 Sex Assigned At Male [facility] Start: 08-31-2018 End: 02-19-2025 Tobacco smoking status NHIS Ex-smoker [facility] End: 06-30-2018 History of tobacco use Current smoker [facility] End: 06-30-2018 History of tobacco use Cigarette Smoker [facility] Start: 08-31-2018 Tobacco use and exposure Smokeless tobacco non-user [facility] Start: 03-25-2023 Alcohol intake Not Asked [facility] Start: 1955 Sex Assigned At Not on file C [facility] Start: 03-26-2023 Tobacco use and exposure Former smokeless tobacco user [facility] History of tobacco use Chews Tobacco [facility] Start: 03-26-2023 End: 07-06-2025 Alcohol intake Ex-drinker (finding) [facility] Start: 03-26-2023 End: 05-03-2025 History of Social function [facility] Start: 03-26-2023 End: 05-03-2025 Tobacco use panel [facility] National Score (1-100), lower number is lower risk 52 [facility] Goals Date Patient Goal Desired Activity /State Functional Status Date Assessment Result Facility 09-21-[address] [facility] Work Phone: Mental Status Date Assessment Result Facility 09-21-2022 Cognitive function Voice/Name [facility] Work Phone: 09-20-2022 Cognitive function Remote Intact [facility] Work Phone: 09-15-2022 Cognitive function Passive [facility] Work Phone: Clinical Notes 03-25-2023 to 08-18-2025 Note Date & Type Note Facility 08-18-2025 Progress note [facility] 08-18-2025 Progress note Note Date/Time August 18, 2025 2:12pm [facility] [address] [place], [place] [address] OFFICE VISIT Date of Service: 08/18/25 MR#: [id number] Acct: [id number] Name: ERNST MILES Rep #: [id number] : 1955 Provider: Dr. Doroteo Locke MD Age/Sex: 69/M Location: [facility] Status: Signed HPI HPI History of Present Illness Details: This gentleman with history of mild to moderate coronary artery disease, hypertension, dyslipidemia, meningioma, schizophrenia and dementia is here for follow-up visit. Complains of rare skipped beats. Occasional complaints of shortness of breath when laying down but not on regular basis. 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: No Accompanied by: Self Is patient in pain?: No Allergies Penicillins (PCN) Allergy (Severe, Verified 08/18/25 13:58) Anaphylaxis Medications ?Medication ?Instructions ?Recorded ?Confirmed ?Type levothyroxine 150 mcg tablet 150 mcg PO DAILY thyroid 11/23/19 08/18/25 History ipratropium bromide 42 mcg (0.06 1 spray intranasal BI D allergy 08/06/22 08/18/25 History %) nasal spray pravastatin 40 mg tablet 40 mg PO QHS cholesterol 04/2208/18/25 History albuterol sulfate 90 mcg/actuation 2 puff inhalation Q 6H PRN 09/15/22 08/18/25 History aerosol inhaler Shortness Of Breath Or Wheez ing citalopram 10 mg tablet 10 mg PO DAILY depressioin 1 08/18/25 History docusate sodium 100 mg capsule 200 mg PO DAILY stool s oftner 09/15/22 08/18/25 History timolol maleate 0.5 % eye gel 1 drp EACH EYE QHS Check with 09/15/22 08/18/25 History forming solution primary doctor finasteride 5 mg tablet 5 mg PO DAILY 12/23/2308/18 History gabapentin 100 mg capsule 200 mg PO BID 12/23/2308/18 History tamsulosin 0.4 mg capsule (Flomax) 0.8 mg PO QHS 12/2308/18/25 History fluphenazine decanoate 25 mg/mL 12.5 mg (0.5 mL) IM .Q 2WEEKS 02/01/24 08/18/25 Rx injection solution schizophrenia #5 mL acetaminophen 325 mg chewable 650 mg PO Q4-6H PRN Elev ated temp 06/02/24 08/18/25 History tablet acetaminophen 650 mg rectal 650 mg HI Q4H PRN 06/02/24 08/18/25 History suppository albuterol sulfate 2.5 mg/3 mL 2.5 mg inhalation Q4H HI N 06/02/24 08/18/25 History (0.083 %) solution for nebulization aluminum-magnesium hydroxide 225 30 ml PO .Q 4 h PRN 0 06/02/24 08/18/25 History mg-200 mg/5 mL oral suspension carbidopa 25 mg-levodopa 100 mg 2 tab PO TID parkinson s 06/02/24 08/18/25 History tablet (Sinemet) carboxymethylcellulose sodium 1 % 1 drp ophthalmic (ey e) TID 06/02/24 07/28/25 History eye drops (Artificial Tears (carboxymethylcellulose)) diclofenac sodium 75 mg 75 mg PO BID PRN headache/ m uscle 06/02/24 07/28/25 Rx tablet,delayed release and joint pain #60 tabs guaifenesin 100 mg/5 mL oral liquid 200 mg PO Q4H PRN 06/02/24 07/28/25 History magnesium hydroxide 400 mg/5 mL 30 ml PO DAILY PRN 01/2508/18/25 History oral suspension (Milk of Magnesia) mineral oil (Fleet Mineral Oil 118 ml HI DAILY PRN con stipation 06/02/24 08/18/25 History enema) mometasone-formoterol HFA 200 2 puff inhalation BID 08/18/25 History mcg-5 mcg/actuation aerosol inhaler (Dulera) multivitamin with minerals 1 tab PO DAILY 06/02/24 History (Multiple Vitamin-Minerals tablet) loratadine 10 mg tablet (Allergy 10 mg PO QDAY PRN 08/18/25 History Relief (loratadine)) nitroglycerin 0.4 mg sublingual 0.4 mg sublingual Q5-1 5M PRN 10/16/24 08/18/25 History tablet sennosides 8.6 mg-docusate sodium 1 tab-cap PO BID PRN 10/16/24 08/18/25 History 50 mg capsule (Senna Plus) furosemide 40 mg tablet 40 mg PO QDAY #90 tabs 10/2108/18/25 Rx potassium chloride 20 mEq 20 meq PO QDAY #90 tabs 10/0308/18/25 Rx tablet,extended release metoprolol tartrate 25 mg tablet 12.5 mg PO BID 08/18/25 History bisacodyl 10 mg rectal suppository 10 mg HI QDAY PRN 0 12/10/24 08/18/25 History chlorhexidine gluconate 0.12 % 15 ml buccal .Every 12 hours PRN 12/10/24 07/28/25 History mouthwash (Peridex) chlorhexidine gluconate 4 % 1 applic topical ONCE 08/2607/28/25 History topical liquid (Hibiclens) cyanocobalamin (vitamin B-12) 500 1,000 mcg PO .QOD 08/18/25 History mcg tablet nystatin topical .QD 12/10/24 5 History rivastigmine tartrate 6 mg capsule 6 mg PO BID #60 cap s 12/10/24 08/18/25 Rx aspirin 81 mg tablet,delayed 81 mg PO QDAY #30 tabs 07/28/25 Rx release (Adult Low Dose Aspirin) isosorbide mononitrate 60 mg 60 mg PO QDAY #30 tabs 08/18/25 Rx tablet,extended release 24 hr lisinopril 10 mg tablet 10 mg PO QDAY #30 tabs 03/0108/18/25 Rx benztropine 1 mg tablet 1 mg PO BID 08/18/25 5 History clindamycin 1 %-benzoyl peroxide 5 topical 08/18/25 History % topical gel ketoconazole 2 % topical cream applic topical 08/18/25 08/18/25 History meloxicam 7.5 mg tablet 7.5 mg PO BID 08/18/2508/18 History omeprazole 20 mg capsule,delayed 20 mg PO QDAY 5 08/18/25 History release Ejection fraction %: 60 Have you fallen in the past year?: No PFSH Medical History Allergic rhinitis Other specified glaucoma Hypokalemia Hypo-osmolality and hyponatremia Muscle weakness (generalized) Other vitamin B12 deficiency anemia Obstructive and reflux uropathy GERD (gastroesophageal reflux disease) Metabolic encephalopathy History of Parkinson's disease Anxiety Depression Schizophrenia SOB (shortness of breath) Hemorrhoids Hypothyroid Hypertension Surgical History No history of previous surgery Family History Father Colon cancer Mother Cancer Social History Smoking Status: Former smoker how long ago did patient quit smokin second hand exposure: No alcohol intake: never substance use type: does not use what type of physical activity do you participate in: other details: stretching frequency: daily millie/jewish: Anabaptist seatbelt use: always ROS Const Const: Positive for fatigue and weakness Eyes Eyes: Negative for change in vision ENT ENT: Positive for balance problems; Negative for dizziness Cardio Chest Pain: No Palpitations: Yes (fluttering) Edema: Bilateral Resp Respiratory: Positive for SOB with activity and SOB at rest GI GI: Negative nausea or heartburn Musc Musc: Positive for balance problems Neuro Neuro: Positive for lightheadedness and weakness; Negative for dizziness, near syncope or syncope Endo Endo: Positive for fatigue Cardiology Exam Const Appearance: comfortable and no acute distress Nutritional Appearance: obese Neck Neck: no JVD Carotids: Negative bruit Chest Auscultation: Bilateral: Clear to Auscultation Cardio Rate: regular rate Rhythm: regular rhythm Heart sounds: S1 normal and S2 normal GI GI: obese Neuro General: patient alert, patient awake and patient oriented x3 Extremities Lower Extremity Edema: None: Bilateral Supplemental Info Supplemental Information Labs: HDL Cholesterol, (40-) 42 mg/dL Cholesterol, (<=200) 152 mg/dL Triglycerides, (-199) 153 mg/dL Diagnostics: Electrocardiogram Echocardiogram Stress Test Stress Test Nuclear Medicine Chest X-Ray Coronary Angiography CT Past Visits: Cardiology Visit Today Assessment and Plan Assessment and Plan (1) Coronary artery disease: Status: Chronic Plan: Mild to moderate CAD noted on coronary CT angio. Continue with risk factor modification and medical management. Antiplatelet agents only if okay with neurology as patient has increased risk ofintracranial bleeding with his meningioma. (2) Dyslipidemia: Status: Chronic Plan: On pravastatin. Check lipid profile. (3) Hypertension: Status: Chronic Plan: Furosemide, lisinopril, metoprolol and Imdur. (4) Schizophrenia: Status: Chronic Plan: As per psychiatry. (5) Dementia: Status: Chronic Qualifiers: Dementia type: Alzheimer's Alzheimer's disease onset: late onset Dementia severity: mild Dementia behavioral or psychological symptom: unspecified whether behavioral, psychotic, or mood disturbance or anxiety Qualified Code(s): G30.1 - Alzheimer's disease with late onset; F02.A0 - Dementia in other diseases classified elsewhere, mild, without behavioral disturbance, psychotic disturbance, mood disturbance, and anxiety Plan: Neurology following. (6) Meningioma: Status: Chronic Plan: Neurology following. 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 Medications: Changed From benztropine 1 mg PO TID 90 tabs 7RF To benztropine 1 mg PO BID Plan Details Follow Up: 12 Months Coding Level of Care Code Off vis,est,level 4 Diagnoses Coronary artery disease I25.10 Dyslipidemia E78.5 Hypertension I10 Schizophrenia F20.9 Mild late onset Alzheimer's dementia, unspecified whether behavioral, psychotic,or mood disturbance or anxiety G30.1; F02.A0 Dementia type: Alzheimer's Alzheimer's disease onset: late onset Dementia severity: mild Dementia behavioral or psychological symptom: unspecified whether behavioral, psychotic, or mood disturbance or anxiety Meningioma D32.9 Extrapyramidal and movement disorder G25.9 Coding Level of Care Code Off vis,est,level 4 Diagnoses Coronary artery disease I25.10 Dyslipidemia E78.5 Hypertension I10 Schizophrenia F20.9 Mild late onset Alzheimer's dementia, unspecified whether behavioral, psychotic,or mood disturbance or anxiety G30.1; F02.A0 Dementia type: Alzheimer's Alzheimer's disease onset: late onset Dementia severity: mild Dementia behavioral or psychological symptom: unspecified whether behavioral, psychotic, or mood disturbance or anxiety Meningioma D32.9 Extrapyramidal and movement disorder G25.9 Clinical Quality Measures Falls Risk Screening/Assistive Devices Have you fallen in the past year?: No Cardiac Ejection fraction %: 60 08/18/25 1412 <Electronically signed by Alexei Locke MD> Date _ Alexei Locke MD Cosigner Signature: Date (if applicable) CC: Nadia Fisher MD ~ [place] [employer] Work Phone: 1(830) 909-652708-05-2025 Instructions* Patient Instructions* Johnathan Keller PA-C - 07/06/2025 10:11 AM EDT - Apply the nystatin powder to the affected groin area twice daily after you shower or bathe and have patted the skin dry. - Clean the area only with mild soap and water; do not use alcohol or harsh cleansers. - Continue the powder for one full month. Once the rash is fully cleared, you may stop using it butkeep the prescription on hand in case it returns. - The prescription has been sent to [facility]. - If the rash worsens or does not improve after one month, schedule a follow-up visit. - Plan to see your provider once a year (or have your regular care provider renew it) to maintain the prescription as needed. - If the rash fails to respond or changes in appearance, you may be referred to dermatology for further evaluation. documented in this encounterOhiohealth [facility]-05-[facility]25 NoteHNO ID: [id number] Author: JOHNATHAN KELLER PA-C Service: ? Author Type: Physician Wage And Salary Specialist Type: Progress Notes Filed: 07/06/2025 10:11 Note Text: [facility] PATIENT CLINIC NOTE (M) Note was generated by [employer] and edited as appropriate SERVICE DATE: July 06, 2025 NAME: Ernst Miles GENDER: male CHIEF COMPLAINT: The patient is a 69-year-old male presenting for evaluation of a groin rash. HISTORY OF PRESENT ILLNESS: The patient is a 69-year-old male presenting for evaluation of a groin rash. Groin Rash: - Rash in the groin area x2 months. - Described as "a bed of balls." - No treatment initiated prior to this visit. - Rash is located on the top of the groin area. - Denies associated burning or pain. - Not using incontinence pads. - Was previously prescribed nystatin powder on 06/02 of last year, but has not been using it. MEDICATIONS: METOPROLOL TARTRATE PO Take 12.5 mg by mouth two times a day. isosorbide mononitrate ER (IMDUR) 60 mg 24 hr tablet Take 60 mg by mouth once daily. ketoconazole (NIZORAL) 2 % shampoo Apply to affected area two times a week. Every Saturday and Saturday Apply to scalp[ and body topically carbidopa-levodopa (SINEMET 25-100) 25-100 mg per tablet Take 2 tablets by mouth three times daily. citalopram hydrobromide (CELEXA) 10 mg tablet Take 10 mg by mouth once daily. cyanocobalamin (VITAMIN B-12) 500 mcg tablet Take 1 tablet by mouth once daily. (Patient taking differently: Take 2 tablets by mouth every other day.) levothyroxine (SYNTHROID) 150 mcg tablet levothyroxine Levothyroxine Active 150 MCG DAILY November 23, 2019 3:03pm 11-23-2019 [facility] ([id number]) meloxicam (MOBIC) 15 mg tablet (Patient taking differently: Take 7.5 mg by mouth two times a day.) MULTIVITAMIN W-MINERALS/LUTEIN (CENTRUM SILVER ORAL) Take 1 tablet by mouth once daily. lisinopril 2.5 mg tablet Take 2.5 mg by mouth once daily. 20 MG by mouth daily in the morning (Patient taking differently: Take 10 mg by mouth once daily. 20 MG by mouth daily in the morning) CLARITIN 10 MG TAB Take 10 mg by mouth once daily. BENZTROPINE 1 MG TAB Take by mouth twice daily. 0.5 MG (Patient taking differently: Take 1 mg by mouth two times a day.) SYNTHROID 100 MCG TAB Take 150 mcg by mouth. (Patient taking differently: Take 150 mcg by mouth daily before breakfast.) nystatin (MYCOSTATIN) powder Apply 1 application to affected area two times a day. OXYGEN, HOME THERAPY, Inhale 2 L/min as [...] ounces of liquid and take as directed. ncxhjkksvvydb-rwg-[id number]-PF (REFRESH DIGITAL PF) 0.5-1-0.5 % dpet Use in eyes three times daily. One drop in both eyes three times daily ANTACID, CALCIUM CARBONATE, ORAL Take 500 mg by mouth twice daily. ipratropium bromide (ATROVENT) 42 mcg (0.06 %) nasal spray Use 1 Hancock in the nose twice daily. methyl salicylate-menthol (MUSCLE RUB) 15-10 % topical cream Apply to affected area three times daily as needed. VENTOLIN HFA 90 mcg/actuation inhaler timolol (TIMOPTIC-XE) 0.5 % ophthalmic gel-forming Use 1 Drop in both eyes daily at bedtime. omeprazole (PRILOSEC) 20 mg capsule Take 20 mg by mouth once daily. Cholecalciferol, Vitamin D3, 25 mcg (1,000 unit) cap Take 1,000 Units by mouth once daily. mupirocin (BACTROBAN) 2 % ointment Apply 1 application to affected area three times daily. GARLIC OIL ORAL Take by mouth. ascorbic acid, vitamin C, (VITAMIN C) 500 mg tablet Take 500 mg by mouth once daily. naproxen 500 mg tablet Take 500 mg by mouth two times a day with meals. DOCOSAHEXANOIC ACID/EPA (FISH OIL ORAL) Take by mouth. budesonide-formoterol (SYMBICORT) 160-4.5 mcg/actuation inhaler Inhale 2 Puffs as instructed twice daily. AMLODIPINE BESYLATE (AMLODIPINE ORAL) Take by mouth. traZODone 100 mg tablet Take 100 mg by mouth daily at bedtime. 50 MG by mouth at bedtime simvastatin (ZOCOR) 20 mg tablet Take 20 mg by mouth daily at bedtime. Gabapentin 300 mg tab Take by mouth. fluPHENAZine Decanoate 25 mg/mL syrg by INJECTION(UNSPECIFIED PARENTERAL ROUTES) route. ASPIRIN 81 MG TAB Take by mouth. COLACE 50 MG CAP Take by mouth. 200 mg by mouth every morning ATIVAN 0.5 MG TAB Take by mouth. ATIVAN 1 MG TAB Take by mouth. COSOPT 2 %-0.5 % EYE (more content not included)...[facility] 07-06-2025 History of Present illness Narrative* Johnathan Keller PA-C - 07/06/2025 9:42 AM EDT Images from the original note were not included. [facility] PATIENT CLINIC NOTE (M) Note was generated by [employer] and edited as appropriate SERVICE DATE: July 06, 2025 NAME: Ernst Miles GENDER: male CHIEF COMPLAINT: The patient is a 69-year-old male presenting for evaluation of a groin rash. HISTORY OF PRESENT ILLNESS: The patient is a 69-year-old male presenting for evaluation of a groin rash. Groin Rash: - Rash in the groin area x2 months. - Described as "a bed of balls." - No treatment initiated prior to this visit. - Rash is located on the top of the groin area. - Denies associated burning or pain. - Not using incontinence pads. - Was previously prescribed nystatin powder on 06/02 of last year, but has not been using it. MEDICATIONS: METOPROLOL TARTRATE PO Take 12.5 mg by mouth two times a day. isosorbide mononitrate ER (IMDUR) 60 mg 24 hr tablet Take 60 mg by mouth once daily. ketoconazole (NIZORAL) 2 % shampoo Apply to affected area two times a week. Every Saturday and Saturday Apply to scalp[ and body topically carbidopa-levodopa (SINEMET 25-100) 25-100 mg per tablet Take 2 tablets by mouth three times daily. citalopram hydrobromide (CELEXA) 10 mg tablet Take 10 mg by mouth once daily. cyanocobalamin (VITAMIN B-12) 500 mcg tablet Take 1 tablet by mouth once daily. (Patient taking differently: Take 2 tablets by mouth every other day.) levothyroxine (SYNTHROID) 150 mcg tablet levothyroxine Levothyroxine Active 150 MCG DAILY November 23, 2019 3:03pm 11-23-2019 [facility] ([id number]) meloxicam (MOBIC) 15 mg tablet (Patient taking differently: Take 7.5 mg by mouth two times a day.) MULTIVITAMIN W-MINERALS/LUTEIN (CENTRUM SILVER ORAL) Take 1 tablet by mouth once daily. lisinopril 2.5 mg tablet Take 2.5 mg by mouth once daily. 20 MG by mouth daily in the morning (Patient taking differently: Take 10 mg by mouth once daily. 20 MG by mouth daily in the morning) CLARITIN 10 MG TAB Take 10 mg by mouth once daily. BENZTROPINE 1 MG TAB Take by mouth twice daily. 0.5 MG (Patient taking differently: Take 1 mg by mouth two times a day.) SYNTHROID 100 MCG TAB Take 150 mcg by mouth. (Patient taking differently: Take 150 mcg by mouth daily before breakfast.) nystatin (MYCOSTATIN) powder Apply 1 application to affected area two times a day. OXYGEN, HOME THERAPY, Inhale 2 L/min as [...] mg/mL injection Inject 25 mg intramuscularly every 2weeks. pravastatin (PRAVACHOL) 40 mg tablet Take 40 mg by mouth daily at bedtime. polyethylene glycol 3350 17 gram packet Take 17 g by mouth once daily. Dissolve dose in 4 - 8 ounces of liquid and take as directed. elwtiuhpekbcx-fby-vzky31-PF (REFRESH DIGITAL PF) 0.5-1-0.5 % dpet Use in eyes three times daily. One drop in both eyes three times daily ANTACID, CALCIUM CARBONATE, ORAL Take 500 mg by mouth twice daily. ipratropium bromide (ATROVENT) 42 mcg (0.06 %) nasal spray Use 1 Hancock in the nose twice daily. methyl salicylate-menthol (MUSCLE RUB) 15-10 % topical cream Apply to affected area three times daily as needed. VENTOLIN HFA 90 mcg/actuation inhaler timolol (TIMOPTIC-XE) 0.5 % ophthalmic gel-forming Use 1 Drop in both eyes daily at bedtime. omeprazole (PRILOSEC) 20 mg capsule Take 20 mg by mouth once daily. Cholecalciferol, Vitamin D3, 25 mcg (1,000 unit) cap Take 1,000 Units by mouth once daily. mupirocin (BACTROBAN) 2 % ointment Apply 1 application to affected area three times daily. GARLIC OIL ORAL Take by mouth. ascorbic acid, vitamin C, (VITAMIN C) 500 mg tablet Take 500 mg by mouth once daily. naproxen 500 mg tablet Take 500 mg by mouth two times a day with meals. DOCOSAHEXANOIC ACID/EPA (FISH OIL ORAL) Take by mouth. budesonide-formoterol (SYMBICORT) 160-4.5 mcg/actuation inhaler Inhale 2 Puffs as instructed twice daily. AMLODIPINE BESYLATE (AMLODIPINE ORAL) Take by mouth. traZODone 100 mg tablet Take 100 mg by mouth daily at bedtime. 50 MG by mouth at bedtime simvastatin (ZOCOR) 20 mg tablet Take 20 mg by mouth daily at bedtime. Gabapentin 300 mg tab Take by mouth. fluPHENAZine Decanoate 25 mg/mL syrg by INJECTION(UNSPECIFIED PARENTERAL ROUTES) route. ASPIRIN 81 MG TAB Take by mouth. COLACE 50 MG CAP Take by mouth. 200 mg by mouth every morning ATIVAN 0.5 MG TAB Take by mouth. ATIVAN 1 MG TAB Take by mouth. COSOPT 2 %-0.5 % EYE DROPS Use in eyes. CLINDAMYCIN 1 % TOPICAL SOLN Apply to affected area. FOR EXTERNAL USE ONLY. Apply to PAST MEDICAL HISTORY: PAST MEDICAL HISTORY Diagnosis Date Allergic rhinitis, unspecified Anxiety disorder, unspecified Asthma (HCC) Benign prostatic hyperplasia without lower urinary tract symptoms Bipolar affective disorder (HCC) Chronic cough Depression, [...] Connections: Not on file REVIEW OF SYSTEMS: Skin: (+) groin rash, (+) groin bumps, (-) groin pain, (-) groin burning sensation PHYSICAL EXAMINATION: There were no vitals taken for this visit. General: Alert & oriented, no acute distress Skin: Normal HEENT: Pupils equal, round. Oral cavity, oropharynx clear Neck: Supple, no mass Breast: Deferred Respiratory: Clear to auscultation, bilaterally Cardiovascular: Regular rate and rhythm, no murmurs, rubs, or gallops Abdomen: Soft, non-tender, non-distended, no masses palpable, no hepatosplenomegaly, normal bowel sounds Genitourinary: Mild erythema in the inguinal crease, no signs of infection, multiple small papules noted MSK: Back is non-tender Extremities: No clubbing, cyanosis, or edema PROBLEM LIST REVIEW: Yes PROCEDURES: PVR: 0 ml IMAGING: Scrotum US - 04/2025 Right Sided Hydrocele ASSESSMENT/PLAN: 1. Sujey rash of groin (B37.89) 2. Rash of groin (R21) - Examination reveals mild erythema and irritation in the groin crease, consistent with a yeast infection. No signs of infection or lesions observed. Reinitiated nystatin powder application twice daily after bathing and drying the area thoroughly. Advised against using harsh cleansers or alcohol-based products. Prescription sent to [facility]. If symptoms persist or worsen, consider dermatology referral. Follow-up in one month if no improvement. 3. Benign prostatic hyperplasia without lower urinary tract symptoms (N40.0) 4. Screening for genitourinary condition (Z13.89) New Diagnosis of unknown prognosis testing to follow > Follow-up as needed or if groin rash worsens may need Dermatology > 1 year Appt w/ BJob Keller, MARIA DOLORES, [place], PADebbieC for annual follow-up and refills. Patient Instructions (AVS) - printed for patient - Apply the nystatin powder to the affected groin area twice daily after you shower or bathe and have patted the skin dry. - Clean the area only with mild soap and water; do not use alcohol or harsh cleansers. - Continue the powder for one full month. Once the rash is fully cleared, you may stop using it butkeep the prescription on hand in case it returns. - The prescription has been sent to [facility]. - If the rash worsens or does not improve after one month, schedule a follow-up visit. - Plan to see your provider once a year (or have your regular care provider renew it) to maintain the prescription as needed. - If the rash fails to respond or changes in appearance, you may be referred to dermatology for further evaluation. MARIA DOLORES Christine MT, PA-C * Vivienne Gonzáles LPN - 07/06/2025 9:33 AM EDT Verified name and date of . CC Post Void Residual HPI: Ernst Miles is a 69 year old male. The patient is here now for an appointment with MARIA DOLORES Christine MT, PA-COV. Procedure: Explained procedure to patient and verbalizes understanding. Performed a PVR. Patient attempted to urinate but unable to provide specimen. States he urinatedright before appointment. Results of scan: 0 mL The patient tolerated the procedure well. Plan: Appointment with Johnathan. documented in this encounterOhio[facility]08-05-2025 NoteHNO ID: [id number] Author: VIVIENNE GONZÁLES LPN Service: ? Author Type: LICENSED NURSE Type: Progress Notes Filed: 07/06/2025 10:11 Note Text: Verified name and date of . CC Post Void Residual HPI: Ernst Miles is a 69 year old male. The patient is here now for an appointment with MARIA DOLORES Christine MT, PA-COV. Procedure: Explained procedure to patient and verbalizes understanding. Performed a PVR. Patient attempted to urinate but unable to provide specimen. States he urinatedright before appointment. Results of scan: 0 mL The patient tolerated the procedure well. Plan: Appointment with Johnathan.[facility]07-10-[facility] Evaluation note* Diagnosis Onset Date Resolution Status Admit Date Musculoskeletal pain acute June 10, 2025 2:22pm Tension headache acute June 2:22pm Dementia chronic June 10 2:22pm Extrapyramidal and movement disorder chronic June 10, 2025 2:22pm Meningioma chronic June 10 2:22pm Coronary artery disease chronic S eptember 2024 1:29pm Dementia chronic August 1:29pm Dyslipidemia chronic August 182024 1:29pm Extrapyramidal and movement disorder chronic August 18, 2025 1:29pm Hypertension chronic August 182024 1:29pm Meningioma chronic August 1:29pm Schizophrenia chronic August 022024 1:29pm [place] [employer] Work Phone: [phone] Telephone encounter Note* Telephone Encounter - Vivienne Gonzáles LPN - 05/05/2025 4:25 PM EDT Received fax of results. Uploaded to [facility] via [email or web address]. Vivienne Gonzáles LPN [facility]06-04-20[facility] Miscellaneous Notes* Telephone Encounter - Vivienne Gonzáles LPN - 05/05/2025 4:25 PM EDT Received fax of results. Uploaded to [facility] via [email or web address]. Vivienne Gonzáles LPN * Telephone Encounter - Vivienne Gonzáles LPN - 05/03/2025 4:07 PM EDT Called patient. Call goes to [facility]. Spoke with TRISTA Torres who states Ultrasound was done by [facility] and she will fax those results. Vivienne Gonzáles LPN documented in this encounterOhiohealth [facility]ide [facility]06-02-2025 Telephone encounter Note * Telephone Encounter - Vivienne Gonzáles LPN - 05/03/2025 4:07 PM EDT Called patient. Call goes to [facility]. Spoke with TRISTA Torres who states Ultrasound was done by [facility] and she will fax those results. Vivienne Gonzáles LPN [facility]03-31-[facility] Evaluation note* Diagnosis Onset Date Resolution Status Admit Date Chest pain chronic March 01 9:38am Coronary artery disease chronic M arch 2024 9:38am Dementia chronic March 01 9:38am Dyslipidemia chronic March 01, 2025 9:38am Hypertension chronic March 01, 2025 9:38am Meningioma chronic March 01 9:38am Schizophrenia chronic March 01, 2025 9:38am [facility] Work Phone: [phone]) 745-476804-26-2023 Miscellaneous Notes* Telephone Encounter - Vivienne Gonzáles LPN - 03/27/2023 3:29 PM EDT Faxed. Vivienne Gonzáles LPN * Telephone Encounter - Vivienne Gonzáles LPN - 03/27/2023 3:27 PM EDT Called [facility] for fax number. Per Johnathan he would like Office notes faxed.Fax number [phone]. Vivienne Gonzáles LPN documented in this encounterOhiohealth Riverside [facility] Hospital04-25-2023 History of Present illness Narrative* Johnathan Keller PA-C - 03/26/2023 4:19 PM EDT Images from the original note were not included. [facility] NEW PATIENT CLINIC NOTE SERVICE DATE: 03/26/2023 SERVICE TIME: 4:19 PM NAME: Ernst Miles CHIEF COMPLAINT: BPH with LUTS HISTORY OF PRESENT ILLNESS: Ernst Miles is a 67 year old male presenting with BPH with LUTS history and he has been on Flomaxand Proscar with good success since his UTI [...] mg/mL injection Inject 25 mg intramuscularly every 2weeks. pravastatin (PRAVACHOL) 40 mg tablet Take 40 mg by mouth daily at bedtime. polyethylene glycol 3350 17 gram packet Take 17 g by mouth once daily. Dissolve dose in 4 - 8 ounces of liquid and take as directed. phnowffzkysyl-hsm-xxqw96-PF (REFRESH DIGITAL PF) 0.5-1-0.5 % dpet Use [...] mcg (0.06 %) nasal spray Use 1 Hancock in the nose twice daily. methyl salicylate-menthol (MUSCLE RUB) 15-10 % topical cream Apply to affected area three times daily as needed. levothyroxine (SYNTHROID) 150 mcg tablet levothyroxine Levothyroxine Active 150 MCG DAILY November 23, 2019 3:03pm 11-23-2019 [facility] ([id number]) meloxicam (MOBIC) 15 mg tablet timolol (TIMOPTIC-XE) [...] Take 1,000 Units by mouth once daily. (Patientnot taking: No sig reported) mupirocin (BACTROBAN) 2 % ointment Apply 1 application to affected area three times daily. (Patientnot taking: No sig reported) MULTIVITAMIN W-MINERALS/LUTEIN (CENTRUM [...] medically appropriate examination, counseling and educating the pat ient/family/caregiver, ordering medications, tests, or procedures, and care coordination. MARIA DOLORES Christine MT, PA-C * Vivienne Gonzáles LPN - 03/26/2023 3:10 PM EDT Verified name and date of . CC Post Void Residual HPI: Enrst Miles is a 67 year old male. [...] Plan: Appointment with Johnathan. documented in this encounterOhiohealth [facility]ide [facility]04-25-2023 Instructions* Patient Instructions* Johnathan Keller PA-C - 03/26/2023 4:17 PM EDT Ernst Miles ([id number]) 67 yo Male History of UTI- 01/2023 [...] Infection Symptoms or Urinary Retention Symptoms Johnathan Keller MPAS, MT, JORGE documented in this encounterMichael Ville [id number] Miscellaneous Notes* Telephone Encounter - Vivienne Gonzáles LPN - 03/25/2023 10:55 AM EDT Received medical records. Scanned to [employer] via [email or web address]. Vivienne Gonzáles LPN * Telephone Encounter - Vivienne Gonzáles LPN - 03/25/2023 8:46 AM EDT Called [facility] and spoke with nurse, Ashley, service unit operator oil well for location patient resides. Per Ashley patient is seen by Dr. Yu who wants to have patient seen by specialist due to patient having been treated in January and in January with antibiotics. Patient has BPH and nick Flomax and Proscar and is on a scheduled toileting program and is continent for the most part. Ashley reports that patient is a poor historian and will have caregiver with him at appointment for assistance. She will fax over face sheet and current medications. Vivienne Gonzáles LPN * Telephone Encounter - Vivienne Gonzáles LPN - 03/25/2023 8:39 AM EDT Called patient- [facility] that patient used to reside at, answered phone. States that patient was admitted to [facility] back in the fall. Vivienne Gonzáles LPN documented in this encounterOhiohealth Riverside Methodist HospitalEvaluation noteNo assessment information availableWKettering Health Hamilton Work Phone: Evaluation note* Diagnosis Onset Date Resolution Status Hemorrhoids acute Hemorrhoids acute [facility] Work Phone: Evaluation note* Diagnosis Onset Date Resolution Status Hemorrhoids acute Acute alteration in mental status acute Acute UTI acute History of Parkinson's disease acute Leukocytosis acute Metabolic encephalopathy acu [facility] Work Phone: Evaluation note* Diagnosis Onset Date Resolution Status Acute alteration in mental status acute Acute UTI acute History of Parkinson's disease acute Leukocytosis acute Metabolic encephalopathy acu [facility] Work Phone: Evaluation note* Diagnosis Onset Date Resolution Status Acute alteration in mental status resolved Acute UTI resolved Leukocytosis resolved Metabolic encephalopathy res olved [facility] Work Phone: Evaluation note* Diagnosis Onset Date Resolution Status Parkinson's disease noneacti ve [facility] Work Phone: Evaluation note* Diagnosis Benign prostatic hyperplasia without lower urinary tract symptoms- Primary Acute cystitis without hematuria Acute [facility]stitis [facility] Diagnosis Onset Date Resolution Status Tension headache acute Dementia chronic Extrapyramidal and movement disorder chronic [facility] Work Phone: Evaluation note* Diagnosis Sujey rash of groin- Primary Other candidiasis of other specified sites Rash of groin Rash and other nonspecific skin eruption Benign prostatic hyperplasia without lower urinary tract symptoms Screening for genitourinary condition Screening for other and unspecified genitourinary condition Pain in testicle, unspecified laterality documented in this encounter [facility] for referral (narrative)No reason for referral information availableWK[facility] Work [facility]: Chief Complaint and Reason for Visit Chief Complaint VIRAL SYMPTOMS Chief Complaint VIRAL SYMPTOMS HEMORRHOIDS 1Month F/U 5/25 HEMORRHOIDS fall Reason for Visit Hemorrhoids Hemorrhoids Chief Complaint VIRAL SYMPTOMS HEMORRHOIDS 1Month F/U 5/25 HEMORRHOIDS fall FALL Reason for Visit Hemorrhoids Hemorrhoids Chief Complaint VIRAL SYMPTOMS HEMORRHOIDS 1Month F/U 5/25 HEMORRHOIDS fall FALL ALTERED MENTAL STATUS CHANGE Reason for Visit Hemorrhoids Hemorrhoids Chief Complaint HEMORRHOIDS 1Month F/U 5/25 HEMORRHOIDS fall FALL ALTERED MENTAL STATUS CHANGE FALLS/RT HIP PAIN Reason for Visit Hemorrhoids Hemorrhoids Chief Complaint 1Month F/U 5/25 HEMO RRHOIDS fall FALL ALTERED MENTAL STATUS CHANGE FALLS/RT HIP PAIN ABNORMAL GAIT/RX HERE UTI, ENCEPHALOPATHY MENTAL STATUS CHANGE Reason for Visit Hemorrhoids Acute alteration in mental status Acute UTI History of Parkinson's disease Leukocytosis Metabolic encephalopathy Chief Complaint fall FALL ALTERED MENTAL STATUS CHANGE FALLS/RT HIP PAIN ABNORMAL GAIT/RX HERE UTI, ENCEPHALOPATHY MENTAL STATUS CHANGE UTI, ENCEPHALOPATHY UTI, ENCEPHALOPATHY UTI, ENCEPHALOPATHY UTI, ENCEPHALOPATHY UTI, ENCEPHALOPATHY UTI, ENCEPHALOPATHY Reason for Visit Acute alteration in mental status Acute UTI History of Parkinson's disease Leukocytosis Metabolic encephalopathy Chief Complaint ABNORMAL GAIT/RX HER E UTI, ENCEPHALOPATHY MENTAL STATUS CHANGE UTI, ENCEPHALOPATHY UTI, ENCEPHALOPATHY UTI, ENCEPHALOPATHY UTI, ENCEPHALOPATHY UTI, ENCEPHALOPATHY UTI, ENCEPHALOPATHY LAB WORK LAB WORK LAB WORK SKILLED NURSING LABWORK LAB WORK SKILLED NURSING LAB WORK SKILLED NURSING LABWORK SKILLED NURSING LAB WORK SKILLED NURSING LAB WORK Reason for Visit Acute alteration in mental status Acute UTI Leukocytosis Metabolic encephalopathy Chief Complaint LAB WORK SKILLED NURSING LAB WORK SKILLED NURSING LABWORK SKILLED NURSING LAB WORK SKILLED NURSING LAB WORK SKILLED NURSING LAB WORK LABSPEC Chief Complaint SKILLED NURSING LAB WOR K SKILLED NURSING LABWORK SKILLED NURSING LAB WORK SKILLED NURSING LAB WORK SKILLED NURSING LAB WORK SKILLED NURSING LAB WORK LABSPEC Chief Complaint SKILLED NURSING LAB WOR K SKILLED NURSING LAB WORK SKILLED NURSING LAB WORK SKILLED NURSING LAB WORK LABSPEC Parkinson's disease Reason for Visit Parkinson's disease Chief Complaint SKILLED NURSING LAB WOR K SKILLED NURSING LAB WORK SKILLED NURSING LAB WORK SKILLED NURSING LAB WORK LABSPEC LABWORK Parkinson's disease Reason for Visit Parkinson's disease Chief Complaint SKILLED NURSING LAB WOR K SKILLED NURSING LABWORK DEMENTIA, SCHIZO, EXTRAPYRAMIDAL DYSFUNCTION SKILLED NURSING LABWORK 4 M FU LABWORK Reason for Visit Tension headache Dementia Extrapyramidal and movement disorder Chief Complaint SKILLED NURSING LABWORK Chief Complaint SKILLED NURSING LABWORK SKILLED NURSING LAB WORK 6 M FU LABWORK Chief Complaint Admit Date 3 M FU March 01, 2025 9:3 8am LABWORK March 11, 2025 6:1 2am SKILLED NURSING LAB WORK March 12, 2025 6 :25am SKILLED NURSING LAB WORK April 12, 2025 5:0 0am SKILLED NURSING LAB WORK April 28, 2025 5:0 0am Reason for Visit Admit Date Chest pain March 01, 2025 9:3 8am Coronary artery disease March 01, 2025 9:38am Dementia March 01, 2025 9:3 8am Dyslipidemia March 01, 2025 9:3 8am Hypertension March 01, 2025 9:3 8am Meningioma March 01, 2025 9:3 8am Schizophrenia March 01, 2025 9:3 8am Chief Complaint Admit Date 3 M FU March 01, 2025 9:3 8am LABWORK March 11, 2025 6:1 2am SKILLED NURSING LAB WORK March 12, 2025 6 :25am SKILLED NURSING LAB WORK April 12, 2025 5:0 0am SKILLED NURSING LAB WORK April 28, 2025 5:0 0am 6 M FU June 10, 2025 2:22 pm Chief Complaint Admit Date SKILLED NURSING LAB WORK April 28, 2025 5:0 0am 6 M FU June 10, 2025 2:22 pm LABWORK August 03, 2025 5:00am 6 M FU August 18, 2025 1:29pm Reason for Visit Admit Date Musculoskeletal pain June 10, 2025 2:2 2pm Tension headache June 10, 2025 2:22 pm Dementia June 10, 2025 2:22 pm Extrapyramidal and movement disorder Girish 2024 2:22pm Meningioma June 10, 2025 2:22 pm Coronary artery disease August 18, 2025 1:29pm Dementia August 18, 2025 1:29pm Dyslipidemia August 18, 2025 1:29pm Extrapyramidal and movement disorder Sep tember 2024 1:29pm Hypertension August 18, 2025 1:29pm Meningioma August 18, 2025 1:29pm Schizophrenia August 18, 2025 1:29pm Family History Relationship Condition Age at Onset Recorded Date/T leda Unknown Family History?Cancer Unknown Decemb er 2018 5:39pm Family History?Cancer Unknown Decemb er 2018 5:39pm Relationship Condition Age at Onset Recorded Date/T leda father Malignant neoplasm of colon Unknown mother Malignant neoplasm Unknown Advance Directives Advance Directive Response Recorded Date/ Time Living Will No June 05, 2021 1 1:27am Power of Assistant Administrator No June 05, 2021 11:27am Advance Directive Response Recorded Date/ Time Living Will No May 30, 2022 5:31pm Power of Assistant Administrator No May 30 5:31pm Advance Directive Response Recorded Date/ Time Living Will No June 16, 2022 7:26pm Power of Assistant Administrator No June 16 7:26pm Advance Directive Response Recorded Date/ Time Living Will No August 06 8:57pm Power of Assistant Administrator No August 06, 2022 8:57pm Advance Directive Response Recorded Date/ Time Living Will No September 15 5:56pm Power of Assistant Administrator No September 15, 2022 5:56pm Advance Directive Response Recorded Date/ Time Living Will No September 15 4:56pm Power of Assistant Administrator No September 15, 2022 4:56pm Summary Purpose Additional Source Comments Goals (unrecognized section and content) Goals may be documented in a n alternate sectionGoals may be documented in an alternate sectionGoals may be documented in an alternate sectionGoals may be documented in an alternate sectionGoals may be documented in an alternate sectionGoals may be documented in an alternate sectionGoals may be documented in an alternate sectionGoals may be documented in an alternate sectionGoals may be documented in an alternate sectionGoals may be documented in an alternate sectionGoals may be documented in an alternate sectionGoals may be documented in an alternate sectionGoals may be documented in an alternate sectionGoals may be documented in an alternate sectionGoals may be documented in an alternate sectionGoals may be documented in an alternate sectionGoals may be documented in an alternate sectionGoals may be documented in an alternate sectionGoals may be documented in an alternate section Care Teams (unrecognized sec tion and content) Team Status: Active Member Role Status Dates Dr. Jossue Bell MD Family Provider Active Dr. Ayad Brown MD Primary Care Provider Active Team Status: Active Member Role Status Dates Dr. Ayad Brown MD Primary Care Provider Active Dr. Nadia LI MD Attending Provider Active Team Status: Inactive Member Role Status Dates Dr. Ayad Brown MD Primary Care Provider Active Dr. Nadia LI MD Attending Provider Active Team Status: Active Member Role Status Dates Dr. Ayad Brown MD Primary Care Provider Active Dr. Nadia LI MD Attending Provider, Referring Provider Active Team Status: Inactive Member Role Status Dates Dr. Ayad Brown MD Primary Care Provider, Referring Provider Active Dr. Paul Connor MD Attending Provider Active Team Status: Inactive Member Role Status Dates Dr. Ayad Brown MD Primary Care Provider Active Dr. Nadia LI MD Attending Provider, Referring Provider Active Test Preparation Tutor Relationship Specialty Start Date End Date Jossue Bell MD [address] [place] [address] [address] [place] [address] PCP - General Family Medicine 01/04/20 Test Preparation Tutor Relationship Specialty Start Date End Date Jossue Bell MD [address] [place] [address] [address] [place] [address] PCP - General Family Medicine 01/04/20 Test Preparation Tutor Relationship Specialty Start Date End Date Jossue Bell MD [address] [place] [address] [address] [place] [address] PCP - General Family Medicine 01/04/20 Team Status: Inactive Member Role Status Dates Dr. Ayad Brown MD Primary Care Provider Active Dr. Paul Connor MD Attending Provider, Referring Provider Active Team Status: Inactive Member Role Status Dates Dr. Ayad Bronw MD Primary Care Provider Active Paul LI MD Attending Provider Active Test Preparation Tutor Relationship Specialty Start Date End Date Jossue Bell MD [address] [place] [address] [address] [place] [address] PCP - General Family Medicine 01/04/20 Team Status: Active Member Role Status Dates Dr. Ayad Brown MD Primary Care Provider Active Team Status: Inactive Member Role Status Dates Dr. Ayad Brown MD Primary Care Provider Active Start: March 01, 2025 End: March 01, 2025 Dr. Ayad Brown MD Referring Provider Active Start: March 01, 2025 End: March 01, 2025 Dr. Alexei Locke MD Attending Provider Active Start: March 01, 2025 End: March 01, 2025 Team Status: Active Member Role Status Dates Dr. Ayad Brown MD Primary Care Provider Active Start: March 11, 2025 Dr. Nadia LI MD Attending Provider Active Start: March 11, 2025 Team Status: Active Member Role Status Dates Dr. Ayad Brown MD Primary Care Provider Active Start: March 12, 2025 Dr. Nadia LI MD Attending Provider Active Start: March 12, 2025 Team Status: Active Member Role Status Dates Dr. Ayad Brown MD Primary Care Provider Active Start: April 12, 2025 Dr. Nadia LI MD Attending Provider Active Start: April 12, 2025 Team Status: Inactive Member Role Status Dates Dr. Ayad Brown MD Primary Care Provider Active Start: April 28, 2025 End: April 28, 2025 Dr. Nadia LI MD Attending Provider Active Start: April 28, 2025 End: April 28, 2025 Team Status: Active Member Role/Relationship Status Dates Dr. Ayad Brown MD Primary Care Provider Active Team Status: Inactive Member Role/Relationship Status Dates Dr. Ayad Brown MD Primary Care Provider Active Start: March 01, 2025 End: March 01, 2025 Dr. Ayad Brown MD Referring Provider Active Start: March 01, 2025 End: March 01, 2025 Dr. Alexei Locke MD Attending Provider Active Start: March 01, 2025 End: March 01, 2025 Team Status: Active Member Role/Relationship Status Dates Dr. Ayad Brown MD Primary Care Provider Active Start: March 11, 2025 Dr. Nadia LI MD Attending Provider Active Start: March 11, 2025 Team Status: Active Member Role/Relationship Status Dates Dr. Ayad Brown MD Primary Care Provider Active Start: March 12, 2025 Dr. Nadia LI MD Attending Provider Active Start: March 12, 2025 Team Status: Active Member Role/Relationship Status Dates Dr. Ayad Brown MD Primary Care Provider Active Start: April 12, 2025 Dr. Nadia LI MD Attending Provider Active Start: April 12, 2025 Team Status: Inactive Member Role/Relationship Status Dates Dr. Ayad Brown MD Primary Care Provider Active Start: April 28, 2025 End: April 28, 2025 Dr. Nadia LI MD Attending Provider Active Start: April 28, 2025 End: April 28, 2025 Team Status: Inactive Member Role/Relationship Status Dates Dr. Ayad Brown MD Primary Care Provider Active Start: June 10, 2025 End: June 10, 2025 Dr. Ayad Brown MD Referring Provider Active Start: June 10, 2025 End: June 10, 2025 Dr. Paul Connor MD Attending Provider Active Start: June 10, 2025 End: June 10, 2025 Test Preparation Tutor Relationship Specialty Start Date End Date Jossue Bell MD [address] [place] [address] PCP - General Family Medicine 01/04/20 Team Status: Active Member Role/Relationship Status Dates Dr. Nadia Fisher MD Primary care physician Active Team Status: Inactive Member Role/Relationship Status Dates Dr. Ayad Brown MD Primary care physician Active Start: April 28, 2025 End: April 28, 2025 Dr. Nadia LI MD Attending physician Active Start: April 28, 2025 End: April 28, 2025 Team Status: Inactive Member Role/Relationship Status Dates Dr. Ayad Brown MD Primary care physician Active Start: June 10, 2025 End: June 10, 2025 Dr. Ayad Brown MD Referring Provider Active Start: June 10, 2025 End: June 10, 2025 Dr. Paul Connor MD Attending physician Active Start: June 10, 2025 End: June 10, 2025 Team Status: Active Member Role/Relationship Status Dates Dr. Ayad Brown MD Primary care physician Active Start: August 03, 2025 Dr. Nadia LI MD Attending physician Active Start: August 03, 2025 Team Status: Inactive Member Role/Relationship Status Dates Dr. Ayad Brown MD Referring Provider Active Start: August 18, 2025 End: August 18, 2025 Dr. Alexei Locke MD Attending physician Active Start: August 18, 2025 End: August 18, 2025 Dr. Nadia Fisher MD Primary care physician Active Start: August 18, 2025 End: August 18, 2025 Source Comments (unrecognize d section and content) In the event this informatio n is protected by the Federal Confidentiality of Alcohol and Drug Abuse Patient Records regulations: The Federal rules restrict any use of the information to criminally investigate or prosecute any alcohol or drug abuse patient.[facility] the event this information is protected by the Federal Confidentiality of Alcohol and Drug Abuse Patient Records regulations: The Federal rules restrict any use of the information to criminally investigate or prosecute any alcohol or drug abuse patient.[facility] Hospital[facility] the event this information is protected by the Federal Confidentiality of Alcohol and Drug Abuse Patient Records regulations: The Federal rules restrict any use of the information to criminally investigate or prosecute any alcohol or drug abuse patient.[facility] Hospital[facility] the event this information is protected by the Federal Confidentiality of Alcohol and Drug Abuse Patient Records regulations: The Federal rules restrict any use of the information to criminally investigate or prosecute any alcohol or drug abuse patient.[facility] HospitalIn the event this information is protected by the Federal Confidentiality of Alcohol and Drug Abuse Patient Records regulations: The Federal rules restrict any use of the information to criminally investigate or prosecute any alcohol or drug abuse patient.[facility] Reason for Visit (unrecogniz ed section and content) Reason Comments Received Outside Medical Records Reason Comments Benign Prostatic Hypertrophy New Patient Reason Comments 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 The [employer] [facility]. provides no warranty or guarantee of the accuracy or completeness of information in this document.
[2025-08-19 08:47] LABS: AST(SGOT) 39 U/L (<=37); Alanine Aminotransfer ALT/SGPT 27 U/L (<=46); Albumin, Serum 3.9 g/dL (3.4-4.8); Alkaline Phosphatase 63 U/L (40-129); Anion Gap 12 (5-15); BUN 19 mg/dL (4-19); BUN/Creat Ratio 21.0 RATIO (10-20); Calcium,Total 8.7 mg/dL (7.6-11.0); Carbon Dioxide 25.5 mmol/L (21.0-32.0); Chloride 99 mmol/L (98-108); Cholesterol 157 mg/dL (<=200); Globulin 2.3 g/dL (2.2-4.2); Glucose 93 mg/dL (70-99); Low Density Lipoprotein Calc. 85 mg/dL; Potassium 4.1 mmol/L (3.3-5.1); Triglycerides 152 mg/dL; Very Low Density Lipoprotein 30 mg/dL (5-40); cholesterol:hdl ratio screen 3.79
== END ==
LOC: OLS.SW 04:00
PROVIDERS: PCP Internal Medicine; Referring Provider Internal Medicine; Visit Provider Internal Medicine
DX: I10 Essential (primary) hypertension (principal); E03.9 Hypothyroidism, unspecified
CPT/HCPCS: 36415; 80053; 80061

== ENCOUNTER → 2025-11-11 | Outpatient (REF) | payer MEDICARE, MEDICAID, SELFPAY ==
[2025-11-11 08:10] LABS: Mucous, Urine 0 SEEN /hpf (<or=2+); Red Blood Cells-Urine 0 SEEN /hpf (0-5); Squamous Epithelial Cells - UA 0 SEEN /hpf (0-5)
[2025-11-11 08:36] LABS: Color, Urine Yellow (Yellow); Glucose, Dipstick Normal (Normal); Ketone-Dipstick Negative (Negative); Leukocyte Esterase-Dipstick 25 /ul (Negative); Nitrite-Dipstick Negative (Negative); Occult Blood-Urine Negative /ul (Negative); Protein-Dipstick 15 mg/dl (Negative); Specific Gravity, Urine 1.010 (1.002-1.030); Urine Bilirubin Dipstick Negative (Negative)
== END ==
LOC: OLS.SW 05:00
PROVIDERS: PCP Internal Medicine; Visit Provider Internal Medicine
DX: R82.90 Unspecified abnormal findings in urine (principal)
CPT/HCPCS: 81001; 87077; 87086; 87088

== ENCOUNTER → 2025-11-15 | Outpatient (CLI) | payer MEDICARE, MEDICAID, SELFPAY ==
--- NOTE | 2025-11-15 13:28 | ECHOCS_ITS ---
Reason For Study : CAD/ASHD Procedure This was a 2D Doppler, Color Flow transthoracic echocardiogram. The study was technically difficult. Contrast injection was performed. Exam performed in department. Left Ventricle Normal left ventricular thickness. Mildly dilated left ventricle. The left ventricular ejection fraction is 65 %. No evidence for diastolic dysfunction. Right Ventricle Normal right ventricle. Atria The left and right atria are normal. Mitral Valve Trivial mitral valve insufficiency. Tricuspid Valve Trivial tricuspid valve insufficiency. Normal pulmonary artery pressure. Aortic Valve Trisinus/trileaflet aortic valve. Pulmonic Valve The pulmonic valve is not well visualized. Great Vessels Normal sized aortic root. Pericardium/Pleural No pericardial effusion. Medication 22 gauge I.V. with prn adaptor inserted into right arm. Diluted definity 2ml given slow IV push to enhance endocardial definition. MMode/2D Measurements & Calculations LVIDd: 5.9 cm IVSd: 0.93 cm Ao root diam: 3.6 cm LVPWd: 1.00 cm LAV(MOD-bp): 36.3 ml LVAd ap4: 29.5 cm2 SV(MOD-sp4): 61.2 ml LAV(MOD-bp) Indexed: 13.9 ml/m2 LVLd ap4: 8.1 cm SI(MOD-sp4): 23.4 ml/m2 LAV(MOD-sp2): 47.6 ml EDV(MOD-sp4): 86.7 ml LAV(MOD-sp4): 28.4 ml EDV(sp4-el): 91.1 ml LVAs ap4: 14.1 cm2 LVLs ap4: 6.5 cm ESV(MOD-sp4): 25.5 ml ESV(sp4-el): 26.1 ml EF(MOD-sp4): 70.6 % EF(sp4-el): 71.3 % SV(sp4-el): 65.0 ml LA A4 area: 13.4 cm2 LA dimension(2D): 3.5 cm RA A4 area: 12.2 cm2 Time Measurements MV dec time: 0.25 sec Doppler Measurements & Calculations MV E max qamar: 45.9 cm/sec Lat Peak E' Qamar: 10.6 cm/sec Med Peak E' Qamar: 9.9 cm/sec MV A max qamar: 45.9 cm/sec E/E' lat: 4.3 E/E' med: 4.6 MV E/A: 1.0 MV V2 max: 70.1 cm/sec MV dec slope: 185.1 cm/sec2 Ao V2 max: 127.4 cm/sec MV max P.0 mmHg Ao max P.5 mmHg MV V2 mean: 46.6 cm/sec Ao V2 mean: 92.2 cm/sec MV mean P.94 mmHg Ao mean P.8 mmHg MV V2 VTI: 18.1 cm Ao V2 VTI: 28.4 cm AV (velocity ratio): 0.98 LV V1 max: 119.2 cm/sec PA V2 max: 97.4 cm/sec TR max qamar: 252.3 cm/sec LV V1 max P.7 mmHg PA V2 mean: 68.0 cm/sec TR max P.5 mmHg LV V1 mean P.9 mmHg LV V1 mean: 96.4 cm/sec LV V1 VTI: 27.9 cm ECHO/Echo Complete W/ Contrast Interpretation Summary Mildly dilated left ventricle. The left ventricular ejection fraction is 65 %. No evidence for diastolic dysfunction. Ordering Physician: Alexei Locke Referring Physician: Alexei Locke Performed By: Joy Moore RCS
== END | disposition home or self-care (01) ==
LOC: CVS 13:27
PROVIDERS: PCP Internal Medicine; Referring Provider Internal Medicine Cardiovascular Disease; Visit Provider Internal Medicine Cardiovascular Disease
DX: R06.02 Shortness of breath (principal)
CPT/HCPCS: 93306; Q9957; A4216; C8929

== ENCOUNTER → 2025-11-30 05:00 | Outpatient (REF) | payer MEDICARE, MEDICAID, SELFPAY ==
--- OUTSIDE RECORDS SUMMARY | 2025-11-30 04:34 | XMS RPT_ITS | CCD ---
Author Organization [facility] Care Team Providers Care [employer] Sales Representative Name Role Phone Dr. Ayad Brown Chi Primary Care Provider Kevin, Dr. Ayad Curtis Referring Provider Dr. Geovanny Strong Attending Provider 1([facility] )[phone] Dr. Ayad Brown Chi Primary Care Provider 1([facility])[phone] Dr. Ayad Brown Chi Referring Provider 1([facility])[phone] Geovanny Strong Attending Provider 1([facility] )[phone] Dr. Dominga Camarillo Emergency Provider 1([facility])[phone] Vinnie Avina Attending Provider 1([facility])[phone] Ayad Brown Chi Primary Care Provider Dr. Vinnie Avina Admit Provider Dr. Vinnie Avina Other Provider Dr. Sidney Haskins Attending Provider Dr. Sidney Haskins Other Provider Dr. Rosalind Dowd Attending Provider Dr. Rosalind Dowd Other Provider 1([facility])[phone] Ayad Brown Chi Primary Care Provider Dr. Dominga Camarillo Emergency Provider Dr. Vinnie Avina Attending Provider 1([facility])[phone] Vinnie Avina Admit Provider Dr. Vinnie Avina Other Provider Divine, Dr. Sidney Romero Attending Provider Dr. Sidney Haskins Other Provider Koram, Dr. Rosalind Foster Attending Provider Koram, Dr. Rosalind Foster Other Provider Kevin, Dr. Ayad Curtis Primary Care Provider Kevin, Dr. Ayad Curtis Referring Provider Nikolas, Dr. Miller Attending Provider Justin WASHINGTON, Jossue Sims Primary Care Provider Kevin, Dr. Ayad Curtis Primary Care Provider Kevin, Dr. Ayad Curtis Referring Provider Dr. Paul Connor Attending Provider Kevin, Dr. Ayad Curtis Primary Care Provider Kevin, Dr. Ayad Curtis Referring Provider Nikolas, Dr. Miller Attending Provider Justin WASHINGTON, Jossue Sims Primary Care Provider Kevin WASHINGTON, Dr. Ayad Curtis Primary Care Provider Kevin WASHINGTON, Dr. Ayad Curtis Referring Provider Chucky WASHINGTON, Dr. Linda Attending Provider Phillip WASHINGTON, Dr. Zuniga Attending Provider Unavaila [facility] Nikolas WASHINGTON, Dr. Miller Attending Provider JOHNATHAN KELLER Attending Unavailable JOSSUE BELL Primary Care Unavailable Kevin WASHINGTON, Dr. Ayad Curtis Primary Care Physician Phillip WASHINGTON, Dr. Zuniga Attending Physician Unavail able Kevin WASHINGTON, Dr. Ayad Curtis Referring Provider Nikolas WASHINGTON, Dr. Miller Attending Physician Chucky WASHINGTON, Dr. Linda Attending Physician Phillip WASHINGTON, Dr. Zuniga Primary Care Physician Unav ailable Kevin, Ayad Chi Referring Unavailable Kevin, Ayad Chi Primary Care Unavailable Chucky, Alexei Attending Unavailable Kevin, Ayad Chi Primary Care Unavailable Kevin, Ayad Chi Referring Unavailable Chucky, Alexei Attending Unavailable Kevin, Ayad Chi Referring Unavailable Chucky, Alexei Attending Unavailable Gudla, Nadia Primary Care Unavailable Kevin, Ayad Chi Primary Care Unavailable Kevin, Ayad Chi Referring Unavailable Paul Connor Attending Unavailable Kevin, Ayad Chi Referring Unavailable Baddour Paul Attending Unavailable Kevin, Ayad Chi Primary Care Unavailable Chucky, Alexei Consulting Unavailable Chucky, Alexei Referring Unavailable Julien Trevino Attending Unavailable Kevin, Ayad Chi Primary Care Unavailable Kevin, Ayad Chi Primary Care Unavailable Gudla OLS, Nadia Attending Unavailable Gudla OLS, Nadia Attending Unavailable Kevin, Ayad Chi Primary Care Unavailable Gudla OLSBeronicaNadia Referring Unavailable Kevin, Ayad Chi Primary Care Unavailable Gudla OLSMarloNadia Attending Unavailable Kevin, Ayad Chi Primary Care Unavailable Gudla OLS, Nadia Attending Unavailable Kevin, Ayad Chi Primary Care Unavailable Gudla OLS, Nadia Attending Unavailable Kevin, Ayad Chi Primary Care Unavailable Gudla OLSMarloNadia Attending Unavailable Gudla OLS, Nadia Attending Unavailable Kevin, Ayad Chi Primary Care Unavailable Gudla OLS, Nadia Attending Unavailable Gudla, Nadia Primary Care Unavailable Gudla OLS Nadia Referring Unavailable Chucky, Alexei Referring Unavailable Chucky, Alexei Attending Unavailable Kevin, Ayad Chi Primary Care Unavailable Chucky, Alexei Attending Unavailable Kevin, Ayad Chi Primary Care Unavailable Kevin, Ayad Chi Referring Unavailable Chucky, Alexei Attending Unavailable Kevin, Ayad Chi Primary Care Unavailable Allergies Allergy Classification Reported Allergen(s) Allergy Type Date of Onset Reaction(s) Facility (20 sources) Penicillins; Translations: [PENICILLINS] Allergy to substance 04-16-2013 Unknown [facility] Medications Current Medications Medication Drug Class(es) Dates Sig (Normalized) Sig (Original) acetaminophen 650 mg rectal suppository (6 sources) Start: 06-02-2024 Acetaminophen 650 mg suppository Active 650 mg RC Q4H as needed June 02, 2024 12:00am Complies with drug therapy Start: 06-02-2024 take 2 tablets by mo uth every four to six hours as needed Acetaminophen 325 mg tablet,chewable Active 650 mg PO EVERY 4-6 HOURS as needed for Elevated temp June 02, 2024 12:00am Complies with drug therapy Start: 06-02-2024 take 2 tablets by mo uth every four to six hours as needed Acetaminophen 325 mg tablet,chewable Active 650 mg PO EVERY 4-6 HOURS as needed for Elevated temp June 02, 2024 12:00am acetaminophen 325 mg / HYDROcodone bitartrate 5 mg oral tablet (5 sources) Opioid Agonist Start: 04-14-2021 take 1 tablet by mouth every six hours as needed Hydrocodone-Acetaminophen Active 1 TABLET PO EVERY 6 HOURS NEEDED 12 April 14, 2021 albuterol 0.83 mg/ml inhalation [...] 2019 1:00am April 25, 2022 9:21am [facility] Start: 11-07-2006 ASPIRIN 81 MG TAB Take by mouth. 0 11/07/2006 Active Comment on above: Take one(1) tablet d aily. benzoyl peroxide 0.05 mg/mg / clindamycin 0.01 mg/mg topical gel (1 source) Lincosamide Antibacterial Start: Clindamycin-Benzoyl Peroxide 1-5 % gel Active TOPICAL August 18, 2025 12:00am Complies with drug therapy benztropine mesylate 1 mg oral tablet (20 sources) Anticholinergic, Antihistamine Start: 5 take 1 tablet by mouth twice daily [...] tablet Discontinued 2 {tbl} PO .QID 240 February 01, 2024 1:37am June 02, 2024 3:15pm parkinsons Start: 09-15-2022 End: 04-06-2023 Carbidopa-Levodopa (Sinemet) 25-100 mg Tablet Discontinued 2 {tbl} PO THREE TIMES A DAY September 15, 2022 12:00am April 06, 2023 8:30pm parkinsons Comment on above: Take 2 tablets by [facility] three times daily. carboxymethylcellulose sodium 10 [...] TOPICAL ONCE December 10, 2024 1:00am Every & Sat Complies with drug therapy Start: [...] for headache/ muscle and joint pain 60 7 June 02, 2024 12:00am Complies with drug therapy DOCOSAHEXANOIC ACID/EPA (FISH OIL ORAL) (5 sources) DOCOSAHEXANOIC ACID/EPA (FISH OIL ORAL) Take by mouth. Active DOCOSAHEXANOIC A FLORIAN/EPA (FISH OIL ORAL) Take by mouth. 0 Active Comment on above: Take by mouth. docusate sodium 50 mg / sennosides, detention 8.6 mg oral capsule (3 sources) Start: [...] 25 mg/mL solution Active 12.5 mg IM .[id number] 5 0 February 01, 2024 1:42am schizophrenia Start: 02-01-2024 inject 25 mg by intr amuscular injection every other week Fluphenazine Decanoate 25 mg/mL solution Active 12.5 mg IM .[id number] 5 February 01, 2024 1:42am 120 actuat [...] spray (20 sources) Anticholinergic Start: 08-06-2022 Ipratropium Powderly 42 mcg (0.06 %) [place],Non-Aerosol Active 1 NMA INTRANASAL TWICE A DAY August 06, 2022 12:00am allergy administer into each nostril Complies with drug therapy Start: 08-06-2022 take 1 spray(s) nasa l route twice daily Ipratropium Powderly Active 1 SPRAY INTRANASAL TWICE A DAY August 05, 2022 11:00pm administer into each nostril ipratropium brom paras (ATROVENT) 42 mcg (0.06 %) nasal spray Use 1 [place] in the nose twice daily. Active Comment on above: Use 1 [place] in the n ose twice daily. 24 [...] MCG DAILY November 23, 2019 3:03pm 11-23-2019 [facility] ([id number]) 11/23/2019 Active Start: 11-23-2019 take 1 tablet [...] MCG DAILY November 23, 2019 3:03pm 11-23-2019 [facility] ([id number]) lisinopril 10 mg oral tablet (20 sources) [...] TWICE A DAY June 02, 2024 12:00am Amdcfloe-Mrh-Ln-Lycop en-Lutein (5 sources) Start: 11-23-2019 take 1 tablet by mouth once daily Rlrpneeq-Bee-To-Lycopen-L utein Active 1 TABLET PO DAILY November 23, 2019 4:35pm Start: 11-23-2019 take 1 tablet by juan th once daily Dpmdmraj-Xkv-Zi-Lycopen-Lutein Active 1 TABLET PO DAILY November 23, [...] 4.5 mg PO TWICE A DAY 60 6 February 03, 2024 1:00am December 10, 2024 [...] tablet (10 sources) HMG-CoA Reductase Inhibitor Start: take 20 mg by mouth once daily [...] Start: 12-10-2024 take 2 tablets by mo [facility] every other day Cyanocobalamin (Vitamin B-12) 500 mcg tablet Active 1000 ug PO .QOD December 10, 2024 4:04pm Start: 02-26-2023 End: 12-10-2024 take 1 tablet by mouth once daily Cyanocobalamin (Vitamin B-12) 500 mcg tablet Discontinued 500 ug PO DAILY February 26, 2023 12:00am December 10, 2024 4:20pm Comment on above: [facility] Completed/Discontinued Medications Medication Drug Class(es) [...] Non-Standardized Chemical Allergen Start: 08-06-2022 End: 06-02-2024 Ykpwifyireaxcmu-Idwrleo-Lihx 80 (Refresh Digital) 0.5-1-0.5 % Drops Discontinued 1 NMA EACH EYE THREE TIMES A DAY August 06, 2022 12:00am June 02, 2024 3:14pm eye Start: 08-06-2022 Carboxymethylc p-Xigbyhm-Ywbh26 (Refresh Digital) 0.5-1-0.5 % Drops Active 1 DRP EACH EYE THREE TIMES A DAY August 05, 2022 11:00pm Start: 08-06-2022 Carboxymethylc p-Fiyiufk-Usem91 (Refresh Digital) 0.5-1-0.5 % Drops Active 1 DRP EACH EYE AT BEDTIME August 06, 2022 12:00am Comment on above: Use in eyes three ti mes daily. One drop in both eyes three times daily docusate sodium 100 mg oral capsule (20 sources) Start: End: take 2 capsules by mouth once daily [...] 25 mg/mL solution Discontinued 12.5 mg IM .[id number] February 01, 2024 1:40am February 01, 2024 1:43am schizophrenia Start: 09-18-2022 inject 25 mg by intr amuscular injection every other week Fluphenazine Decanoate Active 25 MG IM .N0MIYYL September 17, 2022 11:00pm fluPHENAZine Dec anoate [...] 2024 1:38am June 02, 2024 3:15pm Lanolin Fktgier-Cx-J.Pet-Ce res (Minerin Creme) Cream (17 sources) Start: 2021 End: 2024 Lanolin Hnwntux-Wg-W.Pet-Cere s (Minerin Creme) Cream Discontinued 1 NMA TOPICAL DAILY September 15, 2022 12:00am December 10, 2024 4:23pm Check with primary doctor Start: 09-15-2022 End: 12-10-2024 Lanolin Hecefgx-Mx-H.Pet-Cer es (Minerin Creme) Cream Discontinued 1 NMA TOPICAL DAILY September 15, 2022 12:00am December 10, 2024 4:23pm Start: 09-15-2022 Lanolin Alcoho l-Mo-W.Pet-[place] (Minerin Creme) Cream Active 1 APPLIC TOPICAL DAILY September 14, 2022 11:00pm Start: 09-15-2022 Lanolin Alcoho l-Mo-W.Pet-[place] (Minerin Creme) Cream Active 1 APPLIC TOPICAL [...] tablet (20 sources) Proton Pump Inhibitor Start: 2 End: 5 take 1 tablet by mouth once daily Pantoprazole 40 mg tablet,delayed release (DR/EC) Discontinued 40 mg PO DAILY December 23, 2023 2:53pm August 18, 2025 1:52pm gerd Comment on above: Take 40 mg by mouth once daily. polyethylene glycol 3350 72343 mg powder for oral solution (20 sources) Osmotic Laxative Start: 2 End: 07-02-202 4 Polyethylene Glycol 3350 (Miralax) 17 gram/dose powder [...] Coronary arteriosclerosis; Translations: [Atherosclerotic heart disease of nome coronary artery without angina pectoris] Onset: 05-04-2025 10-21-2024 Chronic Delirium, dementia, and amnestic and other cognitive disorders (14 sources) Dementia; Translations: [Unspecified dementia without behavioral disturbance] Onset: 09-28-2025 06-26-2023 Chronic Diseases of white blood cells (20 sources) Leukocytosis; Translations: [Elevated white blood cell count, unspecified] Chronic Disorders of lipid metabolism (10 sources) Dyslipidemia; Translations: [Hyperlipidemia, unspecified] Onset: 10-01-2025 10-21-2024 Chronic E Codes: Fall (20 sources) Fall on same level from slipping; Translations: [Fall on same level from slipping, tripping and stumbling without subsequent striking against object, initial encounter] 06-24-2022 Episodic Esophageal disorders (3 sources) Gastroesophageal reflux disease; Translations: [Gastro-esophageal reflux disease without esophagitis] 10-16-2024 Chronic Essential hypertension (8 sources) Hypertensive disorder; Translations: [Essential (primary) hypertension] Onset: 08-30-2025 10-16-2024 Chronic Fracture of lower limb (20 sources) Closed fracture of phalanx of foot; Translations: [Unspecified fracture of unspecified toe(s), initial encounter for closed fracture] 04-14-2021 Episodic Headache; including migraine (11 sources) Tension-type headache; Translations: [Tension-type headache, unspecified, not intractable] Onset: 09-28-2025 06-26-2023 Chronic Hemorrhoids (20 sources) Hemorrhoids; Translations: [Unspecified hemorrhoids] Episodic Hyperplasia of prostate (3 sources) Benign prostatic hyperplasia; Translations: [Benign prostatic hyperplasia without lower urinary tract symptoms] Onset: 07-06-2025 Chronic Mycoses (2 sources) Disorder of inguinal region; Translations: [Other sites of candidiasis] Onset: 07-06-2025 07-06-2025 Episodic Nutritional deficiencies (7 sources) Vitamin D deficiency; Translations: [Vitamin D deficiency, unspecified] 04-06-2023 Chronic Other and unspecified benign neoplasm (7 sources) Neoplasm of meninges; Translations: [Benign neoplasm of meninges, unspecified] 10-21-2024 Chronic Other and unspecified benign neoplasm (1 source) Benign neoplasm of meninges, unspecified; Translations: [Benign neoplasm of meninges, unspecified] Onset: 09-28-2025 Chronic Other connective tissue disease (18 sources) Recurrent falls ; Translations: [Repeated falls] 08-15-2022 Episodic Other connective tissue disease (3 sources) Muscle weakness; Translations: [Muscle weakness (generalized)] 10-16-2024 Episodic Other connective tissue disease (2 sources) Musculoskeletal pain; Translations: [Myalgia, other site] 06-16-2025 Episodic Other connective tissue disease (1 source) Myalgia, other site; Translations: [Myalgia, other site] Onset: 09-28-2025 Episodic Other hereditary and degenerative nervous system conditions (9 sources) Extrapyramidal disease; Translations: [Extrapyramidal and movement disorder, unspecified] 04-06-2023 Chronic Other hereditary and degenerative nervous system conditions (3 sources) Extrapyramidal and movement disorder, unspecified; Translations: [Unspecified extrapyramidal disease and abnormal movement disorder] Onset: 09-28-2025 06-25-2023 Chronic Other hereditary and degenerative nervous [...] Translations: [Shortness of breath] 10-16-2024 Episodic Other lower respiratory disease (1 source) Shortness of breath; Translations: [Shortness of breath] Onset: 09-10-2025 Episodic Other male genital disorders (1 source) [...] (11 sources) Schizophrenia; Translations: [Schizophrenia, unspecified] Onset: 09-10-2025 04-06-2023 Chronic Superficial injury; contusion (20 sources) Contusion of hand; Translations: [Contusion of right hand, initial encounter] 08-15-2022 Episodic Thyroid disorders (5 sources) Hypothyroidism; Translations: [Hypothyroidism, unspecified] Onset: 05-14-2025 10-16-2024 Chronic Unclassified (1 source) Dementia in other diseases classified elsewhere, mild, without behavioral disturbance, psychotic disturbance, mood disturbance, and anxiety; Translations: [Dementia in other diseases classified elsewhere, mild, without behavioral disturbance, psychotic disturbance, mood disturbance, and anxiety] Onset: 09-28-2025 Unclassified (1 source) Parkinsonism, unspecified; Translations: [Parkinsonism, unspecified] Onset: 03-08-2025 Urinary tract infections (20 sources) Acute urinary tract infection; Translations: [Urinary tract infection, site not specified] Episodic Past or Other Problems Problem Classification Problem Date Documented Da te Episodic/Chronic Deficiency and other anemia (2 sources) Other vitamin B12 deficiency anemias; Translations: [Other vitamin B12 deficiency anemias] Onset: 04-01-2025 Episodic Nonspecific chest pain (20 sources) Chest pain on exertion; Translations: [Chest pain, unspecified] Onset: 05-04-2025 11-23-2019 Episodic Other lower respiratory disease (2 sources) Other forms of dyspnea; Translations: [Other forms of dyspnea] Onset: 10-21-2024 Episodic Unclassified (20 sources) Unknown past medical history 08-06-2022 Results Test Name Value Interpretation Reference Range Facility Comprehensive Metabolic Prof [facility] 08-19-2025 Albumin [Mass/Vol] 3.9 g/dL Normal 3.4-4.8 [facility] Comment on above: Order Comment: 309.1 Performed By: #### L 500.4100, L500.4050 #### [facility] [address] [place], [address] Albumin/Globulin [Mass ratio] 1.7 {ratio} Normal 0.9-2.4 [facility] Comment on above: Order Comment: 309.1 Performed By: #### L 500.4100, L500.4050 #### [facility] [address] [place], [address] ALK PHOS 63 U/L Normal 40-129 [facility] Comment on above: Order Comment: 309.1 Performed By: #### L 500.4100, L500.4050 #### [facility] [address] [place], [address] ALT [Catalytic activity/Vol] 27 U/L Normal <=46 [facility] Comment on above: Order Comment: 309.1 Performed By: #### L 500.4100, L500.4050 #### [facility] [address] [place], [address] AST [Catalytic activity/Vol] 39 U/L High <=37 [facility] Comment on above: Order Comment: 309.1 Result Comment: Hemo lysis present, Results??could be affected. ?? Performed By: #### L 500.4100, L500.4050 #### [facility] [address] [place], [address] Bilirubin [Mass/Vol] 0.40 mg/dL Normal 0.00-1.30 [facility] Comment on above: Order Comment: 309.1 Performed By: #### L 500.4100, L500.4050 #### [facility] [address] [place], [address] BUN/CRE 21.0 RATIO High 10-20 [facility] Comment on above: Order Comment: 309.1 Performed By: #### L 500.4100, L500.4050 #### [facility] [address] [place], [address] Calcium [Mass/Vol] 8.7 mg/dL Normal 7.6-11.0 [facility] Comment on above: Order Comment: 309.1 Performed By: #### L 500.4100, L500.4050 #### [facility] [address] [place], [address] Chloride [Moles/Vol] 99 mmol/L Normal 98-108 [facility] Comment on above: Order Comment: 309.1 Performed By: #### L 500.4100, L500.4050 #### [facility] [address] [place], [address] CO2 [Moles/Vol] 25.5 mmol/L Normal 21.0-32.0 [facility] Comment on above: Order Comment: 309.1 Performed By: #### L 500.4100, L500.4050 #### [facility] [address] [place], [address] Creatinine [Mass/Vol] 0.88 mg/dL Normal 0.70-1.20 [facility] Comment on above: Order Comment: 309.1 Performed By: #### L 500.4100, L500.4050 #### [facility] [address] [place], [address] GAP 12 Normal 5-15 [facility] Comment on above: Order Comment: 309.1 Performed By: #### L 500.4100, L500.4050 #### [facility] [address] [place], [address] GFR/1.73 sq M.predicted among non-blacks MDRD (S/P/Bld) [Vol rate/Area] 93 mL/min/{1.73_m2} Normal >60 [facility] Comment on above: Order Comment: 309.1 Result Comment: mL/m in/1.73m2 CKD-EPI Creatinine Equation (2020) Performed By: #### L 500.4100, L500.4050 #### [facility] [address] [place], [address] Globulin (S) [Mass/Vol] 2.3 g/dL Normal 2.2-4.2 [facility] Comment on above: Order Comment: 309.1 Performed By: #### L 500.4100, L500.4050 #### [facility] [address] [place], [address] Glucose [Mass/Vol] 93 mg/dL Normal 70-99 [facility] Comment on above: Order Comment: 309.1 Performed By: #### L 500.4100, L500.4050 #### [facility] [address] [place], [address] Potassium [Moles/Vol] 4.1 mmol/L Normal 3.3-5.1 [facility] Comment on above: Order Comment: 309.1 Result Comment: Hemo lysis present, Results??could be affected. ?? Performed By: #### L 500.4100, L500.4050 #### [facility] [address] [place], [address] Sodium [Moles/Vol] 137 mmol/L Normal 133-145 [facility] Comment on above: Order Comment: 309.1 Performed By: #### L 500.4100, L500.4050 #### [facility] [address] [place], [address] T PROT 6.3 g/dL Normal 5.9-8.4 [facility] Comment on above: Order Comment: 309.1 Performed By: #### L 500.4100, L500.4050 #### [facility] [address] [place], [address] Urea nitrogen [Mass/Vol] 19 mg/dL Normal 4-19 [facility] Comment on above: Order Comment: 309.1 Performed By: #### L 500.4100, L500.4050 #### [facility] [address] [place], [address] Lipid Profileon 08-19-2025 CHOL:HDL 3.79 Normal [facility] Comment on above: Order Comment: 309.1 Performed By: #### L 503.0106 #### [facility] [address] [place], [address] Cholesterol [Mass/Vol] 157 mg/dL Normal <=200 [facility] Comment on above: Order Comment: 309.1 Result Comment: Chol esterol level, Desirable <200 mg/dL Borderline high cholesterol 200-239 mg/dL High cholesterol >=240 mg/dL Recommendations of the NCEP Adult Treatment Panel for the following risk-cutoff thresholds for the [place] population. Performed By: #### L 503.0106 #### [facility] [address] [place], [address] Cholesterol in HDL [Mass/Vol] 41 mg/dL Normal [facility] Comment on above: Order Comment: 309.1 Result Comment: Nery onal Cholesterol Education Program (NCEP) guidelines: <40 mg/dL: Low HDL-cholesterol (major risk factor for CHD) >= 60 mg/dL: High HDL-cholesterol (negative risk factor for CHD) HDL-cholesterol is affected by a number of factors, e.g. smoking, exercise, hormones, sex and age. Performed By: #### L 503.0106 #### [facility] [address] [place], [address] Cholesterol in LDL [Mass/Vol] 85 mg/dL Normal [facility] Comment on above: Order Comment: 309.1 Result Comment: Bord coyhhb=850-801 mg/dL Higher Clyy=999 mg/dL or greater Friedwald Equation for LDL-C Performed By: #### L 503.0106 #### [facility] [address] [place], [address] Cholesterol in VLDL [Mass/Vol] 30 mg/dL Normal 5-40 [facility] Comment on above: Order Comment: 309.1 Performed By: #### L 503.0106 #### [facility] [address] [place], [address] Triglyceride [Mass/Vol] 152 mg/dL Normal [facility] Comment on above: Order Comment: 309.1 Result Comment: The drugs N-Acetylcysteine and Metamizole may falsely depress this assay. Normal range: <150 mg/dL Borderline High: 150-199 mg/dL High: 200-499 mg/dL Very High: >500 mg/dL Performed By: #### L 503.0106 #### [facility] [address] [place], [address] Cardiology Visit Reporton Cardiology Visit Report [facility] [address] [place] [address] OFFICE VISIT Date of Service: 08/18/25 MR#: [id number] Acct: [id number] Name: ERNST MILES Rep #: [id number] : 1955 Provider: Dr. Alexei Locke MD Age/Sex: 69/M Location[place] [facility] [place] Status: Signed HPI HPI History of Present Illness Details: This gentleman with history of mild to moderate coronary artery disease, hypertension, dyslipidemia, meningioma, schizophrenia and dementia is here for follow-up visit. Complains of rare skipped beats. Occasional complaints of shortness of breath when laying down but not on regular basis. 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 Accompanied by: Self Is patient in pain?: No Allergies Penicillins (PCN) Allergy (Severe, Verified 08/18/25 13:58) Anaphylaxis Medications ???Medication ???Instructions ???Recorded ???Confirmed ???Type levothyroxine 150 mcg tablet 150 mcg PO DAILY thyroid 11/23/19 08/18/25 History ipratropium bromide 42 mcg (0.06 1 spray intranasal BID allergy 04/2208/18/25 History %) nasal spray pravastatin 40 mg tablet 40 mg PO QHS cholesterol 08/06/22 08/18/25 History albuterol sulfate 90 mcg/actuation 2 puff inhalation Q6H PRN 08/18/25 History aerosol inhaler Shortness Of Breath Or Wheezing citalopram 10 mg tablet 10 mg PO DAILY depressioin 2 08/18/25 History docusate sodium 100 mg capsule 200 mg PO DAILY stool softner 09/0108/18/25 History timolol maleate 0.5 % eye gel 1 drp EACH EYE QHS Check with 09/0108/18/25 History forming solution primary doctor finasteride 5 mg tablet 5 mg PO DAILY 12/23/23 08/18/25 Hi story gabapentin 100 mg capsule 200 mg PO BID 12/23/23 08/18/25 Hi story tamsulosin 0.4 mg capsule (Flomax) 0.8 mg PO QHS 12/23/23 08/18/25 History fluphenazine decanoate 25 mg/mL 12.5 mg (0.5 mL) IM .[id number] 01/3108/18/25 Rx injection solution schizophrenia #5 mL acetaminophen 325 mg chewable 650 mg PO Q4-6H PRN Elevated temp 06/02/24 08/18/25 History tablet acetaminophen 650 mg rectal 650 mg [place] Q4H PRN 06/02/24 5 History suppository albuterol sulfate 2.5 mg/3 mL 2.5 mg inhalation Q4H PRN 06/02/24 08/18/25 History (0.083 %) solution for nebulization aluminum-magnesium hydroxide 225 30 ml PO .Q 4 h PRN 06/02/2408/18 History mg-200 mg/5 mL oral suspension carbidopa 25 mg-levodopa 100 mg 2 tab PO TID parkinsons 06/02/24 0 08/18/25 History tablet (Sinemet) carboxymethylcellulo se sodium 1 % 1 drp ophthalmic (eye) TID 07/28/25 History eye drops (Artificial Tears (carboxymethylcellul ose)) diclofenac sodium 75 mg 75 mg PO BID PRN headache/ muscle 06/02/24 07/28/25 Rx tablet,delayed release and joint pain #60 tabs guaifenesin 100 mg/5 mL oral liquid 200 mg PO Q4H PRN 06/02/24/06/25 History magnesium hydroxide 400 mg/5 mL 30 ml PO DAILY PRN 06/02/24 History oral suspension (Milk of Magnesia) mineral oil (Fleet Mineral Oil 118 ml [place] DAILY PRN constipation 0 06/02/24 08/18/25 History enema) mometasone-formotero l HFA 200 2 puff inhalation BID 06/02/24 History mcg-5 mcg/actuation aerosol inhaler (Dulera) multivitamin with minerals 1 tab PO DAILY 06/02/24 08/18/25 H istory (Multiple Vitamin-Minerals tablet) loratadine 10 mg tablet (Allergy 10 mg PO QDAY PRN 10/16/24 5 History Relief (loratadine)) nitroglycerin 0.4 mg sublingual 0.4 mg sublingual Q5-15M PRN 10/1608/18/25 History tablet sennosides 8.6 mg-docusate sodium 1 tab-cap PO BID PRN 10/16/24 History 50 mg capsule (Senna Plus) furosemide 40 mg tablet 40 mg PO QDAY #90 tabs 10/21/24 Rx potassium chloride 20 mEq 20 meq PO QDAY #90 tabs 10/21/24 0 08/18/25 Rx tablet,extended release metoprolol tartrate 25 mg tablet 12.5 mg PO BID 11/26/24 08/18/25 H istory bisacodyl 10 mg rectal suppository 10 mg KY QDAY PRN 12/10/2408/18 History chlorhexidine gluconate 0.12 % 15 ml buccal .Every 12 hours PRN 0 12/10/24 07/28/25 History mouthwash (Peridex) chlorhexidine gluconate 4 % 1 applic topical ONCE 12/10/24 History topical liquid (Hibiclens) cyanocobalamin (vitamin B-12) 500 1,000 mcg PO .QOD 12/10/24 History mcg tablet nystatin topical .QD 12/10/24 08/18/25 Hist jose a sen (more content not included)... Normal [facility] Calculated very low density lipoprotein (VLDL) cholesterol measurementOrdered By: Nadia Fisher on 08-03-2025 Calculated very low density lipoprotein (VLDL) cholesterol measurement 31 mg/dL 5-40 [facility] LDL calc ser/plasOrdered By: Nadianarendra Fisher on 08-03-2025 Cholesterol in LDL [Mass/Vol] 79 mg/dL [facility] Comment on above: Kbgllleexi=182-481 m g/dL & Higher Gait=678 mg/dL or greaterFriedwald Equation for LDL-C Lipid Profileon 08-03-2025 CHOL:HDL 3.61 Normal [facility] Comment on above: Order Comment: 309-1 Performed By: #### L 500.5610 #### [facility] [address] [place], [address] Cholesterol [Mass/Vol] 152 mg/dL Normal <=200 [facility] Comment on above: Order Comment: 309-1 Result Comment: Chol esterol level, Desirable <200 mg/dL Borderline high cholesterol 200-239 mg/dL High cholesterol >=240 mg/dL Recommendations of the NCEP Adult Treatment Panel for the following risk-cutoff thresholds for the [place] population. Performed By: #### L 500.1590 #### [facility] [address] [place], [place], [id number] Cholesterol in HDL [Mass/Vol] 42 mg/dL Normal [facility] Comment on above: Order Comment: 309-1 Result Comment: Nery onal Cholesterol Education Program (NCEP) guidelines: <40 mg/dL: Low HDL-cholesterol (major risk factor for CHD) >= 60 mg/dL: High HDL-cholesterol (negative risk factor for CHD) HDL-cholesterol is affected by a number of factors, e.g. smoking, exercise, hormones, sex and age. Performed By: #### L 500.4100 #### [facility] [address] [place], [address] Cholesterol in LDL [Mass/Vol] 79 mg/dL Normal [facility] Comment on above: Order Comment: 309-1 Result Comment: Bord vogdho=936-290 mg/dL Higher Xaow=611 mg/dL or greater Friedwald Equation for LDL-C Performed By: #### L 500.4100 #### [facility] [address] [place], [address] Cholesterol in VLDL [Mass/Vol] 31 mg/dL Normal 5-40 [facility] Comment on above: Order Comment: 309-1 Performed By: #### L 500.4100 #### [facility] [address] [place], [address] Triglyceride [Mass/Vol] 153 mg/dL Normal [facility] Comment on above: Order Comment: 309-1 Result Comment: The drugs N-Acetylcysteine and Metamizole may falsely depress this assay. Normal range: <150 mg/dL Borderline High: 150-199 mg/dL High: 200-499 mg/dL Very High: >500 mg/dL Performed By: #### L 500.4100 #### [facility] [address] [place], [address] Screening total cholesterol/ high density lipoprotein (HDL) cholesterol ratioOrdered By: Nadia Fisher on 08-03-2025 Cholesterol.total/Choles terol in HDL [Mass ratio] 3.61 {ratio} [facility] Serum or plasma cholesterol in HDL measurement (mass/volume)Ordered By: Nadia Fisher on 08-03-2025 Cholesterol in HDL [Mass/Vol] 42 mg/dL >40 [facility] Comment on above: National Cholesterol Education Program (NCEP) guidelines:<40 mg/dL: Low HDL-cholesterol (major risk factor for CHD)>= 60 mg/dL: High HDL-cholesterol (negative risk factor for CHD)HDL-cholesterol is affected by a number of factors, e.g. smoking, exercise, hormones, sex and age. Serum or plasma cholesterol measurement (mass/volume)Ordered By: Nadia Fisher on 08-03-2025 Cholesterol [Mass/Vol] 152 mg/dL <201 [facility] Comment on above: Cholesterol level, D esirable <200 mg/dLBorderline high cholesterol 200-239 mg/dLHigh cholesterol >=240 mg/dLRecommendations of the NCEP Adult Treatment Panel for the following risk-cutoff thresholds for the [place] population. Triglycerides measurementOrd ered By: Nadia Fisher on 08-03-2025 Triglyceride [Mass/Vol] 153 mg/dL <199 [facility] Comment on above: The drugs N-Acetylcy steine and Metamizole may falsely depress this assay. Normal range: <150 mg/dLBorderline High: 150-199 mg/dLHigh: 200-499 mg/dLVery High: >500 mg/dL CNOVon 07-06-2025 CNOV Office Visit (UROLWS) ERNST MILES ([id number]) 1955 M Date Time Provider Department 07/06/25 9:30 AM JOHNATHAN KELLER During your visit today, we recorded the following information about you: Vivienne Gonzáles LPN 07/06/2025 10:11 AM Signed Verified name and date of . CC Post Void Residual HPI: Ernst Miles is a 69 year old male. The patient is here now for an appointment with MARIA DOLORES Christine, JALYN, PA-ZINA. Procedure: Explained procedure to patient and verbalizes understanding. Performed a PVR. Patient attempted to urinate but unable to provide specimen. States he urinatedright before appointment. Results of scan: 0 mL The patient tolerated the procedure well. Plan: Appointment with Johnathan. Johnathan Keller PA-C 07/06/2025 10:[address] [facility] NEW PATIENT CLINIC NOTE (M) Note was generated by [employer] and edited as appropriate SERVICE DATE: July 06, 2025 NAME: Ernst Miles GENDER: male CHIEF COMPLAINT: The patient is a 69-year-old male presenting for evaluation of a groin rash. HISTORY OF PRESENT ILLNESS: The patient is a 69-year-old male presenting for evaluation of a groin rash. Groin Rash: - Rash in the groin area x2 months. - Described as a bed of balls. - No treatment initiated prior to this [...] MCG DAILY November 23, 2019 3:03pm 11-23-2019 [facility] ([id number]) meloxicam (MOBIC) 15 mg tablet (Patient taking [...] ounces of liquid and take as directed. eelljnsbctipc-ice-fp ly80-PF (REFRESH DIGITAL PF) 0.5-1-0.5 % dpet Use in eyes three times daily. One drop in both eyes three times daily ANTACID, CALCIUM CARBONATE, ORAL Take 500 mg by mouth twice daily. ipratropium bromide (ATROVENT) 42 mcg (0.06 %) nasal spray Use 1 [place] in the nose twice daily. methyl salicylate-menthol [...] two time (more content not included)... Normal [facility] Neurology Visit Reporton Neurology Visit Report [facility] [address], [address] [place] [address] OFFICE VISIT Date of Service: 06/10/25 MR#: [id number] Acct: [id number] Name: ERNST MILES Rep #: [id number] : 1955 Provider: Dr. Paul mccarthy MD Age/Sex: 69/M [place] [facility] [place] Status: Signed HPI HPI Chief Complaint: Details: Interim History: Ernst returns for follow-up visit. He has a history of hypertension, hyperlipidemia, hypothyroidism, gastroesophageal reflux disease, depression, anxiety and schizophrenia who presented for evaluation of possible Parkinson's disease. He resides in a half-way facility. During school, he was in special [...] is preservation (more content not included)... [facility] (UROLWS) ERNST MILES ([id number]) 1955 M Date Time Provider Department 05/03/25 JOHNATHAN KELLER During your visit today, we recorded the following information about you: Vivienne Gonzáles LPN 05/03/2025 4:14 PM Signed Called patient. Call goes to [facility]. Spoke with TRISTA Torres who states Ultrasound was done by [facility] and she will fax those results. TRISTA Roman Kimberly, LPN 05/05/2025 4:26 PM Signed Received fax of results. Uploaded to [employer] via [employer]. Vivienne Gonzáles LPN Allergies As of Date: [...] of liquid and take as directed. - vodmjplerbmwa-vxm-hq ly80-PF (REFRESH DIGITAL PF) 0.5-1-0.5 % dpet [...] mcg (0.06 %) nasal spray Use 1 [place] in the nose twice daily. - methyl salicylate-menthol (MUSCLE RUB) 15-10 % topical cream Apply to affected area three times daily as needed. - levothyroxine (SYNTHROID) 150 mcg tablet levothyroxine Levothyroxine Active 150 MCG DAILY November 23, 2019 3:03pm 11-23-2019 [facility] ([id number]) - meloxicam (MOBIC) 15 mg tablet - [...] Encounter Status:Closed by VIVIENNE GONZÁLES on 05/05/25 [facility] TSH DL <= 0.005 mIU/L QnOrde red By: Nadia Fisher on 04-28-2025 TSH Qn 1.300 uIU/mL 0.300-4.200 [facility] Thyroid Stim Hormone (TSH)on 04-28-2025 TSH 1.300 uIU/mL Normal 0.300-4.200 [facility] Comment on above: Order Comment: 309.1 Performed By: #### L 501.9520 #### [facility] [address] [place], [place], [address] Hemoglobin A1con 04-12-2025 HbA1c (Bld) [Mass fraction] 5.8 % High <=5.6 [facility] Comment on above: Order Comment: 309.1 Result Comment: Norm al < 5.7 % Prediabetic 5.7 - 6.4 % Diabetic >or= 6.5 % Please note range changes. Performed By: #### L 501.9520, L501.5200, L501.9919 #### [facility] [address] [place], [place], [address] Hemoglobin A1c percentageOrd ered By: Nadia Fisher on 04-12-2025 HbA1c (Bld) [Mass fraction] 5.8 % High <5.7 [facility] Comment on above: Normal < 5.7 % Predi abetic 5.7 - 6.4 % Diabetic >or= 6.5 % Please note range changes. Magnesiumon 04-12-2025 Magnesium [Mass/Vol] 2.3 mg/dL High 1.5-2.2 [facility] Comment on above: Order Comment: 309.1 Performed By: #### L 501.9520, L501.5200, L501.9985 #### [facility] [address] [place], [place], [address] Magnesium measurement (mass/ volume)Ordered By: Nadia Fisher on 04-12-2025 Magnesium (Unsp spec) [Mass/Vol] 2.3 mg/dL High 1.5-2.2 [facility] TSH DL <= 0.005 mIU/L QnOrde red By: Nadia Fisher on 04-12-2025 TSH Qn 1.330 uIU/mL 0.300-4.200 [facility] Thyroid Stim Hormone (TSH)on 04-12-2025 TSH 1.330 uIU/mL Normal 0.300-4.200 [facility] Comment on above: Order Comment: 309.1 Performed By: #### L 501.9520, L501.5200, L501.9985 #### [facility] [address] [place], [address] Vitamin B12on 03-12-2025 Cobalamin (Vitamin B12) [Mass/Vol] 703 pg/mL Normal 180-914 [facility] Comment on above: Performed By: #### L 503.0106 #### [facility] [address] [place], [place], [address] Vitamin B12 ser/plasOrdered By: Nadia Fisher on 03-12-2025 Cobalamin (Vitamin B12) [Mass/Vol] 703 pg/mL 180-914 [facility] Vitamin B12on 03-11-2025 Cobalamin (Vitamin B12) [Mass/Vol] 722 pg/mL Normal 180-914 [facility] Comment on above: Order Comment: 309-1 Performed By: #### L 503.0106 #### [facility] [address] [place], [place], [address] Vitamin B12 ser/plasOrdered By: Nadia Fisher on 03-11-2025 Cobalamin (Vitamin B12) [Mass/Vol] 722 pg/mL 180-914 [facility] Cardiology Visit Reporton Cardiology Visit Report [facility] [address] [place], [place] [address] OFFICE VISIT Date of Service: 03/01/25 MR#: [id number] Acct: [id number] Name: ERNST MILES Rep #: [id number] : 1955 Provider: Dr. 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 Normal [facility] Basic Metabolic Profile (BMP )on 01-13-2025 BUN/CRE 16.8 RATIO Normal - [facility] Comment on above: Order Comment: 309-1 Performed By: #### L 500.2500, L100.0500 #### [facility] [address] [place], [address] CA,Total 8.9 mg/dL Normal 8.5-10.1 [facility] Comment on above: Order Comment: 309-1 Performed By: #### L 500.2500, L100.0500 #### [facility] [address] [place], [address] Chloride [Moles/Vol] 101 mmol/L Normal 98-107 [facility] Comment on above: Order Comment: 309-1 Performed By: #### L 500.2500, L100.0500 #### [facility] [address] [place], [address] CO2 [Moles/Vol] 29.0 mmol/L Normal 21.0-32.0 [facility] Comment on above: Order Comment: 309-1 Performed By: #### L 500.2500, L100.0500 #### [facility] [address] [place], [address] Creatinine [Mass/Vol] 0.77 mg/dL Normal 0.70-1.30 [facility] Comment on above: Order Comment: 309-1 Result Comment: The validity of the calculated GFR GFRAA in patients over 70 years has not been determined. Clinical correlation is essential. Performed By: #### L 500.2500, L100.0500 #### [facility] [address] [place], [address] EST GFR - AA 128 mL/min Normal >60 [facility] Comment on above: Order Comment: 309-1 Result Comment: Afri can [place] GFR Calc Performed By: #### L 500.2500, L100.0500 #### [facility] [address] [place], [address] GAP 5 Normal 5-15 [facility] Comment on above: Order Comment: 309-1 Performed By: #### L 500.2500, L100.0500 #### [facility] [address] [place], [address] GFR/1.73 sq M.predicted among non-blacks MDRD (S/P/Bld) [Vol rate/Area] 106 mL/min/{1.73_m2} Normal >60 [facility] Comment on above: Order Comment: 309-1 Result Comment: Non- GFR Calc Performed By: #### L 500.2500, L100.0500 #### [facility] [address] [place], [address] Glucose [Mass/Vol] 102 mg/dL Normal 74-106 [facility] Comment on above: Order Comment: 309-1 Result Comment: Fast ing Glucose result from 100 to 125 mg/dL suggests IMPAIRED HOMEOSTASIS per A.D.A. criteria. Performed By: #### L 500.2500, L100.0500 #### [facility] [address] [place], [address] Potassium [Moles/Vol] 4.0 mmol/L Normal 3.5-5.1 [facility] Comment on above: Order Comment: 309-1 Performed By: #### L 500.2500, L100.0500 #### [facility] [address] [place], [address] Sodium [Moles/Vol] 135 mmol/L Low 136-145 [facility] Comment on above: Order Comment: 309-1 Performed By: #### L 500.2500, L100.0500 #### [facility] [address] [place], [address] Urea nitrogen [Mass/Vol] 13 mg/dL Normal 7-18 [facility] Comment on above: Order Comment: 309-1 Performed By: #### L 500.2500, L100.0500 #### [facility] [address] [place], [address] CBC-Complete Blood Cnt No Di ffon 01-13-2025 Erythrocyte distribution width (RBC) [Ratio] 14.6 % Normal 11.6-14.6 [facility] Comment on above: Order Comment: 309-1 Performed By: #### L 500.2500, L100.0500 #### [facility] [address] [place], [address] Hematocrit (Bld) [Volume fraction] 41.1 % Normal 40-54 [facility] Comment on above: Order Comment: 309-1 Performed By: #### L 500.2500, L100.0500 #### [facility] [address] [place], [address] Hemoglobin (Bld) [Mass/Vol] 13.3 g/dL Normal 13.0-16.5 [facility] Comment on above: Order Comment: 309-1 Performed By: #### L 500.2500, L100.0500 #### [facility] [address] [place], [address] MCH (RBC) [Entitic mass] 28.6 pg Normal 27.0-32.0 [facility] Comment on above: Order Comment: 309-1 Performed By: #### L 500.2500, L100.0500 #### [facility] [address] [place], [address] MCHC (RBC) [Mass/Vol] 32.4 g/dL Normal 32-36 [facility] Comment on above: Order Comment: 309-1 Performed By: #### L 500.2500, L100.0500 #### [facility] [address] [place], [address] MCV (RBC) [Entitic vol] 88.4 fL Normal 80-94 [facility] Comment on above: Order Comment: 309-1 Performed By: #### L 500.2500, L100.0500 #### [facility] [address] [place], [address] Platelet mean volume (Bld) [Entitic vol] 9.1 fL Normal 6.2-12.0 [facility] Comment on above: Order Comment: 309-1 Performed By: #### L 500.2500, L100.0500 #### [facility] [address] [place], [address] Platelets (Bld) [#/Vol] 199 10*3/uL Normal 150-450 [facility] Comment on above: Order Comment: 309-1 Performed By: #### L 500.2500, L100.0500 #### [facility] [address] [place], [address] RBC (Bld) [#/Vol] 4.65 10*6/uL Normal 4.6-6.2 [facility] Comment on above: Order Comment: 309-1 Performed By: #### L 500.2500, L100.0500 #### [facility] [address] [place], [address] RDW SD 47.2 fl High 35.1-43.9 [facility] Comment on above: Order Comment: 309-1 Performed By: #### L 500.2500, L100.0500 #### [facility] [address] [place], [address] WBC (Bld) [#/Vol] 6.2 10*3/uL Normal 4.4-11.0 [facility] Comment on above: Order Comment: 309-1 Performed By: #### L 500.2500, L100.0500 #### [facility] [address] [place], [address] Neurology Visit Reporton Neurology Visit Report [facility] [address] [place] [address], [address] [place], [place] [address] OFFICE VISIT Date of Service: 12/10/24 MR#: [id number] Acct: [id number] Name: ERNST MILES Rep #: [id number] : 1955 Provider: Dr. Paul mccarthy MD Age/Sex: 69/M Location: [facility] Status: Signed [facility] Chief Complaint: Details: Interim History: Ernst returns for follow-up visit. He has a history of hypertension, hyperlipidemia, hypothyroidism, gastroesophageal reflux disease, depression, anxiety and schizophrenia who presented for evaluation of possible Parkinson's disease. He resides in a half-way facility. During school, he was in special [...] is moderat (more content not included)... Normal [facility] Coronary Angiography CTon Coronary Angiography CT [facility] Services [address] [place] [address] 11/28/24 1103 MR#: [id number] Acct: [id number] Name: ERNST MILES Rep #: [id number] : 1955 69 From: Julien Trevino MD [...] MD; Dr. Ayad Brown MD Signed Normal [facility] Echo Complete W/ Contraston 11-27-2024 Echo Complete W/ Contrast [facility] [address] [place] [address] Echo Complete W/ Contrast 11/27/24 1339 MR#: [id number] Acct: [id number] Name: ERNST MILES Rep #: [id number] : 1955 69 From: Alexei Locke MD Attending Dr: Dr. Alexei Locke MD Status: REG CLI Ordering Dr: Alexei Locke MD Date: 11/27/24 Location: [facility] Sex: M C Admitted: Reason For Study: [...] Physician: Ayad Brown Chi Performed By: Shawnee Viadl, IBAN, RVT 12/01/24 0846 Date Alexei Locke MD CC: Dr. Alexei Locke MD; Dr. Ayad Brown MD Date Dictated: 11/27/24 1339 Date Transcribed: 12/01/24 0846 Economic Manager: Signed Normal [facility] Limited Chest CT Cardiac Onl yon 11-27-[address] Cardiac Only [facility] Imaging Services [facility] [address] [place], [place] [id number] Limited Chest CT Cardiac Only MR#: [id number] Acct: [id number] Name: ERNST MILES Rep #: [id number] : 1955 M 69 From: Antonio acevedo MD PCP: Dr. Ayad Brown MD Status: REG CLI Study: Limited Chest CT Cardiac Only Date of Exam: Exam# [id number] Ordering Dr: Alexei Locke MD [id number] STUDY: CT CHEST T ABDOMEN WITHOUT CONTRAST [...] Antonio Uribe MD at 14:43 EST , [id number] STUDY: CT CHEST WITH CONTRAST REASON FOR [...] Alexei Locke MD; Dr. Ayad Brown MD Economic Manager: Signed Normal [facility] Basic Metabolic Profile (BMP )on 10-28-2024 BUN/CRE 12.0 RATIO Normal 10-20 [facility] Comment on above: Order Comment: 309-1 Performed By: #### L 500.2500, L100.0500 #### [facility] [address] [place], [address] CA,Total 8.5 mg/dL Normal 8.5-10.1 [facility] Comment on above: Order Comment: 309-1 Performed By: #### L 500.2500, L100.0500 #### [facility] [address] [place], [address] Chloride [Moles/Vol] 101 mmol/L Normal 98-107 [facility] Comment on above: Order Comment: 309-1 Performed By: #### L 500.2500, L100.0500 #### [facility] [address] [place], [address] CO2 [Moles/Vol] 28.0 mmol/L Normal 21.0-32.0 [facility] Comment on above: Order Comment: 309-1 Performed By: #### L 500.2500, L100.0500 #### [facility] [address] [place], [address] Creatinine [Mass/Vol] 0.83 mg/dL Normal 0.70-1.30 [facility] Comment on above: Order Comment: 309-1 Result Comment: The validity of the calculated GFR GFRAA in patients over 70 years has not been determined. Clinical correlation is essential. Performed By: #### L 500.2500, L100.0500 #### [facility] [address] [place], [address] EST GFR - AA 118 mL/min Normal >60 [facility] Comment on above: Order Comment: 309-1 Result Comment: Afri can [place] GFR Calc Performed By: #### L 500.2500, L100.0500 #### [facility] [address] [place], [address] GAP 6 Normal 5-15 [facility] Comment on above: Order Comment: 309-1 Performed By: #### L 500.2500, L100.0500 #### [facility] [address] [place], [address] GFR/1.73 sq M.predicted among non-blacks MDRD (S/P/Bld) [Vol rate/Area] 97 mL/min/{1.73_m2} Normal >60 [facility] Comment on above: Order Comment: 309-1 Result Comment: Non- GFR Calc Performed By: #### L 500.2500, L100.0500 #### [facility] [address] [place], [address] Glucose [Mass/Vol] 94 mg/dL Normal 74-106 [facility] Comment on above: Order Comment: 309-1 Performed By: #### L 500.2500, L100.0500 #### [facility] [address] [place], [address] Potassium [Moles/Vol] 4.1 mmol/L Normal 3.5-5.1 [facility] Comment on above: Order Comment: 309-1 Result Comment: Slig ht Hemolysis, Result may be falsely increased. Performed By: #### L 500.2500, L100.0500 #### [facility] [address] [place], [address] Sodium [Moles/Vol] 135 mmol/L Low 136-145 [facility] Comment on above: Order Comment: 309-1 Performed By: #### L 500.2500, L100.0500 #### [facility] [address] [place], [address] Urea nitrogen [Mass/Vol] 10 mg/dL Normal 7-18 [facility] Comment on above: Order Comment: 309-1 Performed By: #### L 500.2500, L100.0500 #### [facility] [address] [place], [address] 12 Lead EKG performed by [facility] on 10-21-2024 12 Lead EKG performed by [facility] [address] [place] [address] 12 Lead EKG performed by [facility] 10/21/24 1032 MR#: [id number] Acct: [id number] Name: ERNST MILES Rep #: [id number] : 1955 69 From: Alexei Locke MD Attending Dr: Dr. Alexei Locke MD Status: DEP AMB Ordering Dr: Alexei Locke MD Date: 10/21/24 [place] [facility] [place] M C Admitted: [facility]/12 Lead EKG performed by [facility] ECG Report Interpretation ------Sinus Rhythm -Incomplete right bundle branch block. ABNORMAL Electronically signed on 12/28/2024 at 11:[address] Alexei Locke [employer] Software Version 8610 12/28/24 1120 Date Alexei Locke MD CC: Dr. Ayad Brown MD Date Dictated: 10/21/241031 Date Transcribed: 10/21/241031 Economic Manager: FELICE Signed Normal [facility] Cardiology Visit Reporton Cardiology Visit Report [facility] [address] [place] [address] OFFICE VISIT Date of Service: 10/21/24 MR#: [id number] Acct: [id number] Name: ERNST MILES Rep #: [id number] : 1955 Provider: Dr. Alexei Locke MD Age/Sex: 69/M Location: [facility] Status: Signed HPI HPI History of Present [...] with exertion. According to him, it started many months ago. 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: No Accompanied by: Self Is patient [...] 25 mg/mL 12.5 mg (0.5 mL) IM .[id number] 02/01/24 10/16/24 Rx injection solution schizophrenia #5 mL rivastigmine tartrate 4.5 mg 4.5 mg PO BID #60 caps 02/03/24 10/16/24 Rx capsule acetaminophen 325 mg chewable 650 mg PO Q4-6H PRN Elevated temp 06/02/24 10/16/24 History tablet acetaminophen 650 mg rectal 650 mg [place] Q4H PRN 06/02/24 10/16/24 History suppository albuterol [...] mineral oil (Fleet Mineral Oil 118 ml [place] DAILY PRN constipation 06/02/24 10/16/24 History enema) mometasone-formotero l HFA 200 2 puff inhalation BID 06/02/24 10/16/24 History mcg-5 mcg/actuation aerosol inhaler (Dulera) multivitamin with minerals 1 tab PO DAILY 06/02/24 10/16/24 History (Multiple Vitamin-Minerals tablet) sodium phosphates 19 gram-7 118 ml [place] ONCE 06/02/24 10/16/24 History gram/197 mL enema (Fleet Enema Extra) trazodone 50 mg tablet 25 mg PO QHS 06/02/24 10/16/24 History loratadine 10 mg tablet (Allergy 10 mg PO QDAY PRN 10/16/24 10/16/24 Histor (more content not included)... Normal [facility] Basophil percentageOrdered B y: Nadia Fisher on 01-17-2024 Chloride [Moles/Vol] 104 mmol/L 98-107 [facility] Glucose [Mass/Vol] 102 mg/dL 74-106 [facility] Comment on above: Fasting Glucose resu lt from 100 to 125 mg/dL suggests IMPAIRED HOMEOSTASIS per A.D.A. criteria. Potassium [Moles/Vol] 4.4 mmol/L 3.5-5.1 [facility] Sodium [Moles/Vol] 139 mmol/L 136-145 [facility] - Chemistry and C hemistry - challengeOrdered By: Nadia Fisher on 01-17-2024 CO2 [Moles/Vol] 30.0 mmol/L 21.0-32.0 [facility] Urea nitrogen/Creatinine [Mass ratio] 8.9 mg/mg 10-20 [facility] No Panel InformationOrdered By: Nadia Fisher on 01-17-2024 Estimated GFR (MDRD) Amer 109 mL/min >60 [facility] Comment on above: GFR Calc Estimated GFR (MDRD) Non-Af Amer 90 mL/min >60 [facility] Comment on above: Non- GFR Calc Serum or plasma calcium messi urement (mass/volume)Ordered By: Nadia Fisher on 01-17-2024 Calcium [Mass/Vol] 9.0 mg/dL 8.5-10.1 [facility] Serum or plasma creatinine m easurement (mass/volume)Ordered By: Nadia Fisher on 01-17-2024 Creatinine [Mass/Vol] 0.90 mg/dL 0.70-1.30 [facility] Comment on above: The validity of the calculated GFR & GFRAA in patients over 70 years has not been determined. Clinical correlation is essential. Serum or plasma urea nitroge n measurement (mass/volume)Ordered By: Nadia Fisher on 01-17-2024 Urea nitrogen [Mass/Vol] 8 mg/dL 7-18 [facility] Thin prep Papanicolaou smear with manual screeningOrdered By: Nadia Fisher on 01-17-2024 Thin prep Papanicolaou smear with manual screening 5 5-15 [facility] No Panel InformationOrdered By: Nadia Fisher on 10-23-2023 Prostate Specific Antigen Screen 1.14 ng/mL 0.00-4.00 [facility] Comment on above: This test was perfor med using the TPSA assay method for the[employer] chemistry system. Values obtained with differentassay methods cannot be used interchangably.When changing PSA assays in the course of monitoring apatient, additional sequential testing should be carriedout to confirm baseline values. Basophil percentageOrdered B y: Nadia Fisher on 10-14-2023 Bilirubin [Mass/Vol] 0.40 mg/dL 0.20-1.00 [facility] Comment on above: For patients on eltr ombopag therapy, use of Dimension [place] TBIL is not recommended. Chloride [Moles/Vol] 102 mmol/L 98-107 [facility] Glucose [Mass/Vol] 90 mg/dL 74-106 [facility] Potassium [Moles/Vol] 4.2 mmol/L 3.5-5.1 [facility] Protein [Mass/Vol] 6.6 g/dL 6.4-8.2 [facility] Sodium [Moles/Vol] 138 mmol/L 136-145 [facility] WBC (Bld) [#/Vol] 6.7 10*3/uL 4.4-11.0 [facility] Blood erythrocytes count (nu mber/volume)Ordered By: Nadia Fisher on 10-14-2023 RBC (Bld) [#/Vol] 4.80 10*6/uL 4.6-6.2 [facility] Blood hemoglobin measurement (mass/volume)Ordered By: Nadia Fisher on 10-14-2023 Hemoglobin (Bld) [Mass/Vol] 13.9 g/dL 13.0-16.5 [facility] Blood platelet mean volumeOr dered By: Nadia Fisher on 10-14-2023 Platelet mean volume (Bld) [Entitic vol] 9.6 fL 6.2-12.0 [facility] Determination of erythrocyte mean corpuscular volume (MCV)Ordered By: Nadia Fisher on 10-14-2023 MCV (RBC) [Entitic vol] 89.6 fL 80-94 [facility] Hematocrit Auto (Bld) [Volum e fraction]Ordered By: Nadia Fisher on 10-14-2023 Hematocrit (Bld) [Volume fraction] 43.0 % 40-54 [facility] - Chemistry and C hemistry - challengeOrdered By: Nadia Fisher on 10-14-2023 ALP [Catalytic activity/Vol] 77 U/L 45-117 [facility] ALT [Catalytic activity/Vol] 16 U/L 16-61 [facility] CO2 [Moles/Vol] 31.0 mmol/L 21.0-32.0 [facility] Globulin (S) [Mass/Vol] 3.1 g/dL 2.2-4.2 [facility] Urea nitrogen/Creatinine [Mass ratio] 13.5 mg/mg 10-20 [facility] - Hematology and Cell countsOrdered By: Nadia Fisher on 10-14-2023 Erythrocyte distribution width (RBC) [Entitic vol] 45.6 fL 35.1-43.9 [facility] Erythrocyte distribution width (RBC) [Ratio] 14.0 % 11.6-14.6 [facility] MCH (RBC) [Entitic mass] 29.0 pg 27.0-32.0 [facility] MCHC Auto (RBC) [Mass/Vol]Or dered By: Nadia Fisher on 10-14-2023 MCHC (RBC) [Mass/Vol] 32.3 g/dL 32-36 [facility] No Panel InformationOrdered By: Nadia Fisher on 10-14-2023 Estimated GFR (MDRD) Amer 100 mL/min >60 [facility] Comment on above: GFR Calc Estimated GFR (MDRD) Non-Af Amer 83 mL/min >60 [facility] Comment on above: Non- GFR Calc Thyroid Stimulating Hormone (TSH) 1.18 uIU/mL 0.358-3.74 [facility] Platelets bldOrdered By: Marlo Fisher on 10-14-2023 Platelets (Bld) [#/Vol] 204 10*3/uL 150-450 [facility] Serum or plasma albumin messi urement (mass/volume)Ordered By: Nadia Fisher on 10-14-2023 Albumin [Mass/Vol] 3.5 g/dL 3.2-5.0 [facility] Serum or plasma albumin/glob ulin mass ratioOrdered By: Nadia Fisher on 10-14-2023 Albumin/Globulin [Mass ratio] 1.1 {ratio} 0.9-2.4 [facility] Serum or plasma calcium messi urement (mass/volume)Ordered By: Nadia Fisher on 10-14-2023 Calcium [Mass/Vol] 8.6 mg/dL 8.5-10.1 [facility] Serum or plasma creatinine m easurement (mass/volume)Ordered By: Nadia Fisher on 10-14-2023 Creatinine [Mass/Vol] 0.96 mg/dL 0.70-1.30 [facility] Comment on above: The validity of the calculated GFR & GFRAA in patients over 70 years has not been determined. Clinical correlation is essential. Serum or plasma urea nitroge n measurement (mass/volume)Ordered By: Nadia Fisher on 10-14-2023 Urea nitrogen [Mass/Vol] 13 mg/dL 7-18 [facility] Thin prep Papanicolaou smear with manual screeningOrdered By: Nadianarendra Fisher on 10-14-2023 Thin prep Papanicolaou smear with manual screening 33 U/L 15-37 [facility] Thin prep Papanicolaou smear with manual screening 5 5-15 [facility] Absolute lymphocyte countOrd ered By: Nadia Fisher on 07-01-2023 Lymphocytes Auto (Unsp spec) [#/Vol] 1.75 10*3/uL 0.83-4.51 [facility] Basophil percentageOrdered B y: Nadia Fisher on 07-01-2023 Basophils/100 WBC (Bld) 0.3 % 0-1 [facility] Eosinophils/100 WBC (Bld) 3.8 % 0-5 [facility] Neutrophils (Bld) [#/Vol] 3.2 10*3/uL 2.0-7.7 [facility] Neutrophils/100 WBC (Bld) 55.4 % 47-70 [facility] WBC (Bld) [#/Vol] 5.8 10*3/uL 4.4-11.0 [facility] Blood erythrocytes count (nu mber/volume)Ordered By: Nadia Fisher on 07-01-2023 RBC (Bld) [#/Vol] 4.49 10*6/uL 4.6-6.2 [facility] Blood hemoglobin measurement (mass/volume)Ordered By: Nadia Fisher on 07-01-2023 Hemoglobin (Bld) [Mass/Vol] 13.3 g/dL 13.0-16.5 [facility] Blood lymphocytes/100 leukoc ytesOrdered By: Nadianarendra Fisher on 07-01-2023 Lymphocytes/100 WBC (Bld) 30.2 % 19-41 [facility] Blood monocytes/100 leukocyt esOrdered By: Nadianarendra Fisher on 07-01-2023 Monocytes/100 WBC (Bld) 9.8 % 0-10 [facility] Blood platelet mean volumeOr dered By: Nadianarendra Fisher on 07-01-2023 Platelet mean volume (Bld) [Entitic vol] 9.2 fL 6.2-12.0 [facility] Determination of erythrocyte mean corpuscular volume (MCV)Ordered By: Nadianarendra Fisher on 07-01-2023 MCV (RBC) [Entitic vol] 90.9 fL 80-94 [facility] Hematocrit Auto (Bld) [Volum e fraction]Ordered By: Nadianarendra Fisher on 07-01-2023 Hematocrit (Bld) [Volume fraction] 40.8 % 40-54 [facility] - Hematology and Cell countsOrdered By: Nadianarendra Fisher on 07-01-2023 Erythrocyte distribution width (RBC) [Entitic vol] 46.5 fL 35.1-43.9 [facility] Erythrocyte distribution width (RBC) [Ratio] 14.1 % 11.6-14.6 [facility] Immature granulocytes/100 WBC (Bld) 0.500 % 0.0-0.9 [facility] Comment on above: IG% - Immature Granu locytes (promyelocytes, myelocytes and metamyelocytes) > 1% indicates that a LEFT SHIFT is Present. MCH (RBC) [Entitic mass] 29.6 pg 27.0-32.0 [facility] Nucleated RBC/100 WBC (Bld) [Ratio] 0 % 0-5 [facility] MCHC Auto (RBC) [Mass/Vol]Or dered By: Nadia Fisher on 07-01-2023 MCHC (RBC) [Mass/Vol] 32.6 g/dL 32-36 [facility] Platelets bldOrdered By: Marlo Fisher on 07-01-2023 Platelets (Bld) [#/Vol] 181 10*3/uL 150-450 [facility] Absolute lymphocyte countOrd ered By: Nadia Fisher on 06-10-2023 Lymphocytes Auto (Unsp spec) [#/Vol] 2.45 10*3/uL 0.83-4.51 [facility] Basophil percentageOrdered B y: Nadia Fisher on 06-10-2023 Basophils/100 WBC (Bld) 0.6 % 0-1 [facility] Bilirubin [Mass/Vol] 0.30 mg/dL 0.20-1.00 [facility] Comment on above: For patients on eltr ombopag therapy, use of Dimension [place] TBIL is not recommended. Chloride [Moles/Vol] 102 mmol/L 98-107 [facility] Cholesterol [Mass/Vol] 187 mg/dL <200 [facility] Comment on above: <200 mg/dL Desirable 200-240 mg/dL Borderline >240 mg/dL High Risk Eosinophils/100 WBC (Bld) 3.6 % 0-5 [facility] Glucose [Mass/Vol] 89 mg/dL 74-106 [facility] Neutrophils (Bld) [#/Vol] 3.8 10*3/uL 2.0-7.7 [facility] Neutrophils/100 WBC (Bld) 52.4 % 47-70 [facility] Potassium [Moles/Vol] 4.1 mmol/L 3.5-5.1 [facility] Protein [Mass/Vol] 6.8 g/dL 6.4-8.2 [facility] Sodium [Moles/Vol] 138 mmol/L 136-145 [facility] Triglyceride [Mass/Vol] 213 mg/dL <199 [facility] Comment on above: The drugs N-Acetylcy steine and Metamizole may falsely depress this assay.Serum Triglycerides Reference Interval Normal <150 mg/dL Borderline high 150 - 199 mg/dL High 200 - 499 mg/dL Very High > or = 500 mg/dL WBC (Bld) [#/Vol] 7.3 10*3/uL 4.4-11.0 [facility] Blood erythrocytes count (nu mber/volume)Ordered By: Nadia Fisher on 06-10-2023 RBC (Bld) [#/Vol] 4.56 10*6/uL 4.6-6.2 [facility] Blood hemoglobin measurement (mass/volume)Ordered By: Nadia Fisher on 06-10-2023 Hemoglobin (Bld) [Mass/Vol] 13.6 g/dL 13.0-16.5 [facility] Blood lymphocytes/100 leukoc ytesOrdered By: Nadia Fisher on 06-10-2023 Lymphocytes/100 WBC (Bld) 33.8 % 19-41 [facility] Blood monocytes/100 leukocyt esOrdered By: Nadianarendra Fisher on 06-10-2023 Monocytes/100 WBC (Bld) 8.8 % 0-10 [facility] Blood platelet mean volumeOr dered By: Nadia Fisher on 06-10-2023 Platelet mean volume (Bld) [Entitic vol] 9.4 fL 6.2-12.0 [facility] Determination of erythrocyte mean corpuscular volume (MCV)Ordered By: Nadia Fisher on 06-10-2023 MCV (RBC) [Entitic vol] 89.3 fL 80-94 [facility] Hematocrit Auto (Bld) [Volum e fraction]Ordered By: Nadia Fisher on 06-10-2023 Hematocrit (Bld) [Volume fraction] 40.7 % 40-54 [facility] - Chemistry and C hemistry - challengeOrdered By: Nadia Fisher on 06-10-2023 ALP [Catalytic activity/Vol] 76 U/L 45-117 [facility] ALT [Catalytic activity/Vol] 28 U/L 16-61 [facility] CO2 [Moles/Vol] 32.0 mmol/L 21.0-32.0 [facility] Globulin (S) [Mass/Vol] 3.3 g/dL 2.2-4.2 [facility] Urea nitrogen/Creatinine [Mass ratio] 16.3 mg/mg 10-20 [facility] - Hematology and Cell countsOrdered By: Nadia Fisher on 06-10-2023 Erythrocyte distribution width (RBC) [Entitic vol] 46.7 fL 35.1-43.9 [facility] Erythrocyte distribution width (RBC) [Ratio] 14.5 % 11.6-14.6 [facility] Immature granulocytes/100 WBC (Bld) 0.800 % 0.0-0.9 [facility] Comment on above: IG% - Immature Granu locytes (promyelocytes, myelocytes and metamyelocytes) > 1% indicates that a LEFT SHIFT is Present. MCH (RBC) [Entitic mass] 29.8 pg 27.0-32.0 [facility] Nucleated RBC/100 WBC (Bld) [Ratio] 0 % 0-5 [facility] MCHC Auto (RBC) [Mass/Vol]Or dered By: Nadia Fisher on 06-10-2023 MCHC (RBC) [Mass/Vol] 33.4 g/dL 32-36 [facility] No Panel InformationOrdered By: Nadia Fisher on 06-10-2023 Estimated GFR (MDRD) Amer 114 mL/min >60 [facility] Comment on above: GFR Calc Estimated GFR (MDRD) Non-Af Amer 94 mL/min >60 [facility] Comment on above: Non- GFR Calc Thyroid Stimulating Hormone (TSH) 1.20 uIU/mL 0.358-3.74 [facility] Platelets bldOrdered By: Marlo Fisher on 06-10-2023 Platelets (Bld) [#/Vol] 193 10*3/uL 150-450 [facility] Serum or plasma albumin messi urement (mass/volume)Ordered By: Nadia Fisher on 06-10-2023 Albumin [Mass/Vol] 3.5 g/dL 3.2-5.0 [facility] Serum or plasma albumin/glob ulin mass ratioOrdered By: Nadia Fisher on 06-10-2023 Albumin/Globulin [Mass ratio] 1.1 {ratio} 0.9-2.4 [facility] Serum or plasma calcium messi urement (mass/volume)Ordered By: Nadia Fisher on 06-10-2023 Calcium [Mass/Vol] 8.5 mg/dL 8.5-10.1 [facility] Serum or plasma cholesterol in HDL measurement (mass/volume)Ordered By: Nadia Fisher on 06-10-2023 Cholesterol in HDL [Mass/Vol] 45 mg/dL >40 [facility] Comment on above: The drugs N-Acetylcy steine and Metamizole may falsely depress this assay. Reference Range HDL <40 mg/dL Low HDL Cholesterol HDL >or= 60 mg/dL High HDL Cholesterol Serum or plasma cholesterol in VLDL measurement (mass/volume)Ordered By: Nadia Fisher on 06-10-2023 Cholesterol in VLDL [Mass/Vol] 43 mg/dL 5-40 [facility] Serum or plasma creatinine m easurement (mass/volume)Ordered By: Nadia Fisher on 06-10-2023 Creatinine [Mass/Vol] 0.86 mg/dL 0.70-1.30 [facility] Comment on above: The validity of the calculated GFR & GFRAA in patients over 70 years has not been determined. Clinical correlation is essential. Serum or plasma low density lipoprotein (LDL) cholesterol measurement (mass/volume)Ordered By: aNdia Fisher on 06-10-2023 Cholesterol in LDL [Mass/Vol] 99 mg/dL 0-130 [facility] Serum or plasma urea nitroge n measurement (mass/volume)Ordered By: Nadia Fisher on 06-10-2023 Urea nitrogen [Mass/Vol] 14 mg/dL 7-18 [facility] Thin prep Papanicolaou smear with manual screeningOrdered By: Nadia Fisher on 06-10-2023 Thin prep Papanicolaou smear with manual screening 29 U/L 15-37 [facility] Thin prep Papanicolaou smear with manual screening 4 5-15 [facility] Whole blood hemoglobin A1c/t otal hemoglobin ratio (mass fraction)Ordered By: Nadia Fisher on 06-10-2023 HbA1c (Bld) [Mass fraction] 5.3 % 3.8-5.6 [facility] Comment on above: Normal < 5.7 % Predi abetic 5.7 - 6.4 % Diabetic >or= 6.5 % Please note range changes. Basophil percentageOrdered B y: Paul Connor on 04-11-2023 Bilirubin [Mass/Vol] 0.30 mg/dL 0.20-1.00 [facility] Comment on above: For patients on eltr ombopag therapy, use of Dimension [place] TBIL is not recommended. Chloride [Moles/Vol] 101 mmol/L 98-107 [facility] Glucose [Mass/Vol] 90 mg/dL 74-106 [facility] Potassium [Moles/Vol] 4.0 mmol/L 3.5-5.1 [facility] Protein [Mass/Vol] 6.7 g/dL 6.4-8.2 [facility] Sodium [Moles/Vol] 137 mmol/L 136-145 [facility] WBC (Bld) [#/Vol] 6.7 10*3/uL 4.4-11.0 [facility] Blood erythrocytes count (nu mber/volume)Ordered By: Paul Connor on 04-11-2023 RBC (Bld) [#/Vol] 4.80 10*6/uL 4.6-6.2 [facility] Blood hemoglobin measurement (mass/volume)Ordered By: Paul Connor on 04-11-2023 Hemoglobin (Bld) [Mass/Vol] 13.6 g/dL 13.0-16.5 [facility] Blood platelet mean volumeOr dered By: Paul Connor on 04-11-2023 Platelet mean volume (Bld) [Entitic vol] 9.4 fL 6.2-12.0 [facility] Determination of erythrocyte mean corpuscular volume (MCV)Ordered By: Paul Connor on 04-11-2023 MCV (RBC) [Entitic vol] 88.5 fL 80-94 [facility] Hematocrit Auto (Bld) [Volum e fraction]Ordered By: Paul Connor on 04-11-2023 Hematocrit (Bld) [Volume fraction] 42.5 % 40-54 [facility] - Chemistry and C hemistry - challengeOrdered By: Palu Connor on 04-11-2023 ALP [Catalytic activity/Vol] 77 U/L 45-117 [facility] ALT [Catalytic activity/Vol] 23 U/L 16-61 [facility] CO2 [Moles/Vol] 28.0 mmol/L 21.0-32.0 [facility] Cobalamin (Vitamin B12) [Mass/Vol] 514 pg/mL 211-911 [facility] Free T4 [Mass/Vol] 0.86 ng/dL 0.76-1.46 [facility] Globulin (S) [Mass/Vol] 3.2 g/dL 2.2-4.2 [facility] Urea nitrogen/Creatinine [Mass ratio] 20.1 mg/mg 10-20 [facility] - Hematology and Cell countsOrdered By: Paul Connor on 04-11-2023 Erythrocyte distribution width (RBC) [Entitic vol] 44.9 fL 35.1-43.9 [facility] Erythrocyte distribution width (RBC) [Ratio] 13.8 % 11.6-14.6 [facility] MCH (RBC) [Entitic mass] 28.3 pg 27.0-32.0 [facility] MCHC Auto (RBC) [Mass/Vol]Or dered By: Paul Connor on 04-11-2023 MCHC (RBC) [Mass/Vol] 32.0 g/dL 32-36 [facility] No Panel InformationOrdered By: Paul Connor on 04-11-2023 Estimated GFR (MDRD) Amer 109 mL/min >60 [facility] Comment on above: GFR Calc Estimated GFR (MDRD) Non-Af Amer 90 mL/min >60 [facility] Comment on above: Non- GFR Calc Thyroid Stimulating Hormone (TSH) 0.59 uIU/mL 0.358-3.74 [facility] Vitamin D 25-Hydroxy 33.3 ng/mL [facility] Comment on above: Vitamin D 25(OH) Sta tus Range Deficiency <20 ng/mL (50nmol/L) Insufficiency 20 - 30 ng/mL (50 - 75 nmol/L) Sufficiency 30 - 100 ng/mL (75 - 250 nmol/L) Toxicity >100 ng/mL (>250 nmol/L) Whole Blood Vitamin B1 Level 105.7 nmol/L 66.5-200.0 [facility] Comment on above: Performed at: [address] [id number] Director: Leida Sargent MD, Phone: [phone] Platelets bldOrdered By: Darion Connor on 04-11-2023 Platelets (Bld) [#/Vol] 203 10*3/uL 150-450 [facility] Serum or plasma albumin messi urement (mass/volume)Ordered By: Paul Connor on 04-11-2023 Albumin [Mass/Vol] 3.5 g/dL 3.2-5.0 [facility] Serum or plasma albumin/glob ulin mass ratioOrdered By: Paul Connor on 04-11-2023 Albumin/Globulin [Mass ratio] 1.1 {ratio} 0.9-2.4 [facility] Serum or plasma calcium messi urement (mass/volume)Ordered By: Paul Connor on 04-11-2023 Calcium [Mass/Vol] 8.7 mg/dL 8.5-10.1 [facility] Serum or plasma creatinine m easurement (mass/volume)Ordered By: Paul Connor on 04-11-2023 Creatinine [Mass/Vol] 0.90 mg/dL 0.70-1.30 [facility] Comment on above: The validity of the calculated GFR & GFRAA in patients over 70 years has not been determined. Clinical correlation is essential. Serum or plasma folate measu rement (mass/volume)Ordered By: Paul Connor on 04-11-2023 Folate [Mass/Vol] 6.70 ng/mL 3.1-55.4 [facility] Serum or plasma urea nitroge n measurement (mass/volume)Ordered By: Paul Connor on 04-11-2023 Urea nitrogen [Mass/Vol] 18 mg/dL 7-18 [facility] Thin prep Papanicolaou smear with manual screeningOrdered By: Paul Connor on 04-11-2023 Thin prep Papanicolaou smear with manual screening 24 U/L 15-37 [facility] Thin prep Papanicolaou smear with manual screening 8 5-15 [facility] No Panel InformationOrdered By: Nadia Fisher on 04-03-2023 Thyroid Stimulating Hormone (TSH) 1.65 uIU/mL 0.358-3.74 [facility] UA DIP, URINE (POC)on 2022 BILIRUBIN UA (POCT) Negative Negative [facility] CLARITY UA (POCT) Clear [facility] COLOR UA (POCT) Yellow [facility] GLUCOSE UA (POCT) Negative Negative mg/dL [facility] HEMOGLOBIN/BLOOD UA (POCT) Negative Negative [facility] KETONE UA (POCT) Negative Negative mg/dL [facility] LEUKOCYTES [facility] (POCT) Negative [facility] NITR[facility] (POCT) Negative Negative [facility] PH UA (POCT) 5.5 4.5 - 8.[address] [facility] Protein Ql (U) Negative Negative mg/dL [facility] SPECIFIC GRAVITY UA (POCT) 1.015 1.005 - 1.[address] [facility] UROBILINOGEN UA (POCT) 0.2 E.U./dL Irish l E.U./dL [facility] Basophil percentageOrdered B y: Dr. Fisher on 02-11-2023 Chloride [Moles/Vol] 105 mmol/L 98-107 [facility] Glucose [Mass/Vol] 90 mg/dL 74-106 [facility] Potassium [Moles/Vol] 4.3 mmol/L 3.5-5.1 [facility] Sodium [Moles/Vol] 142 mmol/L 136-145 [facility] Culture, urineOrdered By: Dr Job Fisher on 02-11-2023 Bacteria identified Cx Nom (U) Klebsiella pneumoniae sp pneum [facility] Laboratory - Chemistry and C hemistry - challengeOrdered By: Dr. Fisher on 02-11-2023 CO2 [Moles/Vol] 30.0 mmol/L 21.0-32.0 [facility] Urea nitrogen/Creatinine [Mass ratio] 16.3 mg/mg 10-20 [facility] No Panel InformationOrdered By: Dr. Fisher on 02-11-2023 Estimated GFR (MDRD) Amer 114 mL/min >60 [facility] Comment on above: GFR Calc Estimated GFR (MDRD) Non-Af Amer 95 mL/min >60 [facility] Comment on above: Non- GFR Calc Serum or plasma calcium messi urement (mass/volume)Ordered By: Dr. Fisher on 02-11-2023 Calcium [Mass/Vol] 8.9 mg/dL 8.5-10.1 [facility] Serum or plasma creatinine m easurement (mass/volume)Ordered By: Dr. Fisher on 02-11-2023 Creatinine [Mass/Vol] 0.86 mg/dL 0.70-1.30 [facility] Comment on above: The validity of the calculated GFR & GFRAA in patients over 70 years has not been determined. Clinical correlation is essential. Serum or plasma urea nitroge n measurement (mass/volume)Ordered By: Dr. Fisher on 02-11-2023 Urea nitrogen [Mass/Vol] 14 mg/dL 7-18 [facility] Thin prep Papanicolaou smear with manual screeningOrdered By: Dr. Fisher on 02-11-2023 Thin prep Papanicolaou smear with manual screening 7 5-15 [facility] Basophil percentageOrdered B y: Dr. Fisher on 02-09-2023 Basophil percentage >100 SEEN /hpf 0-5 [facility] Comment on above: Microscopic field is filled. Other elements may be obscured. Bilirubin Test strip Ql (U)O rdered By: Dr. Fisher on 02-09-2023 Bilirubin Ql (U) Negative Negative [facility] Ketones Test strip Ql (U)Ord ered By: Dr. Fisher on 02-09-2023 Ketones Ql (U) 5 mg/dl Negative [facility] Mucus LM Ql (Urine sed)Order ed By: Dr. Fisher on 02-09-2023 Mucus Ql (Urine sed) 0 SEEN /hpf [facility] Nitrite Test strip Ql (U)Ord ered By: Dr. Fisher on 02-09-2023 Nitrite Ql (U) Negative Negative [facility] Protein Test strip Ql (U)Ord ered By: Dr. Fisher on 02-09-2023 Protein Ql (U) 100 mg/dl Negative [facility] Squamous epithelial cells de tection in urine sediment by light microscopyOrdered By: Dr. Fisher on 02-09-2023 Epithelial cells.squamous LM Ql (Urine sed) 0 SEEN /hpf 0-5 [facility] Urine blood detectionOrdered By: Dr. Fisher on 02-09-2023 RBC Ql (U) 150 /ul Negative [facility] RBC Ql (U) 10-25 SEEN /hpf 0-5 [facility] Urine clarityOrdered By: Dr. Fisher on 02-09-2023 Clarity (U) Turbid Clear [facility] Urine color determinationOrd ered By: Dr. Fisher on 02-09-2023 Color (U) Yellow Yellow [facility] Urine glucose detectionOrder ed By: Dr. Fisher on 02-09-2023 Glucose Ql (U) Normal mg/dl Normal [facility] Urine leukocyte esterase det ection by dipstickOrdered By: Dr. Fisher on 02-09-2023 Leukocyte esterase Test strip Ql (U) 500 /ul Negative [facility] Urine pHOrdered By: Dr. Melanie rios on 02-09-2023 pH (U) 6.5 [pH] 5.0 - 8.0 [facility] Urine sediment bacteria coun t by microscopy (number/high power field)Ordered By: Dr. Fisher on 02-09-2023 Bacteria LM.HPF (Urine sed) [#/Area] 4 /[HPF] None Seen [facility] Urine specific gravity measu rementOrdered By: Dr. Fisher on 02-09-2023 Specific gravity (U) [Rel density] 1.015 1.002-1.030 [facility] Urobilinogen Auto test strip Ql (U)Ordered By: Dr. Fisher on 02-09-2023 Urobilinogen Ql (U) Normal mg/dl Normal [facility] Culture, urineOrdered By: Dr Job Fisher on 01-17-2023 Bacteria identified Cx Nom (U) Klebsiella pneumoniae sp pneum [facility] Absolute lymphocyte countOrd ered By: Dr. Fisher on 01-14-2023 Lymphocytes Auto (Unsp spec) [#/Vol] 2.06 10*3/uL 0.83-4.51 [facility] Basophil percentageOrdered B y: Dr. Fisher on 01-14-2023 Basophils/100 WBC (Bld) 0.4 % 0-1 [facility] Eosinophils/100 WBC (Bld) 3.1 % 0-5 [facility] Neutrophils (Bld) [#/Vol] 5.4 10*3/uL 2.0-7.7 [facility] Neutrophils/100 WBC (Bld) 63.5 % 47-70 [facility] WBC (Bld) [#/Vol] 8.4 10*3/uL 4.4-11.0 [facility] Blood erythrocytes count (nu mber/volume)Ordered By: Dr. Fisher on 01-14-2023 RBC (Bld) [#/Vol] 4.61 10*6/uL 4.6-6.2 [facility] Blood hemoglobin measurement (mass/volume)Ordered By: Dr. Fisher on 01-14-2023 Hemoglobin (Bld) [Mass/Vol] 13.5 g/dL 13.0-16.5 [facility] Blood lymphocytes/100 leukoc ytesOrdered By: Dr. Fisher on 01-14-2023 Lymphocytes/100 WBC (Bld) 24.5 % 19-41 [facility] Blood monocytes/100 leukocyt esOrdered By: Dr. Fisher on 01-14-2023 Monocytes/100 WBC (Bld) 8.1 % 0-10 [facility] Blood platelet mean volumeOr dered By: Dr. Fisher on 01-14-2023 Platelet mean volume (Bld) [Entitic vol] 9.1 fL 6.2-12.0 [facility] Determination of erythrocyte mean corpuscular volume (MCV)Ordered By: Dr. Fisher on 01-14-2023 MCV (RBC) [Entitic vol] 92.4 fL 80-94 [facility] Hematocrit Auto (Bld) [Volum e fraction]Ordered By: Dr. Fisher on 01-14-2023 Hematocrit (Bld) [Volume fraction] 42.6 % 40-54 [facility] Laboratory - Hematology and Cell countsOrdered By: Dr. Fisher on 01-14-2023 Erythrocyte distribution width (RBC) [Entitic vol] 47.6 fL 35.1-43.9 [facility] Erythrocyte distribution width (RBC) [Ratio] 14.1 % 11.6-14.6 [facility] Immature granulocytes/100 WBC (Bld) 0.400 % 0.0-0.9 [facility] Comment on above: IG% - Immature Granu locytes (promyelocytes, myelocytes and metamyelocytes) > 1% indicates that a LEFT SHIFT is Present. MCH (RBC) [Entitic mass] 29.3 pg 27.0-32.0 [facility] Nucleated RBC/100 WBC (Bld) [Ratio] 0 % 0-5 [facility] MCHC Auto (RBC) [Mass/Vol]Or dered By: Dr. Fisher on 01-14-2023 MCHC (RBC) [Mass/Vol] 31.7 g/dL 32-36 [facility] Platelets bldOrdered By: Dr. Fisher on 01-14-2023 Platelets (Bld) [#/Vol] 204 10*3/uL 150-450 [facility] Basophil percentageOrdered B y: Dr. Fisher on 01-11-2023 Basophil percentage >100 SEEN /hpf 0-5 [facility] Bilirubin Test strip Ql (U)O rdered By: Dr. Fisher on 01-11-2023 Bilirubin Ql (U) Negative Negative [facility] Ketones Test strip Ql (U)Ord ered By: Dr. Fisher on 01-11-2023 Ketones Ql (U) 5 mg/dl Negative [facility] Mucus LM Ql (Urine sed)Order ed By: Dr. Fisher on 01-11-2023 Mucus Ql (Urine sed) 0 SEEN /hpf [facility] Nitrite Test strip Ql (U)Ord ered By: Dr. Fisher on 01-11-2023 Nitrite Ql (U) Negative Negative [facility] Protein Test strip Ql (U)Ord ered By: Dr. Fisher on 01-11-2023 Protein Ql (U) 100 mg/dl Negative [facility] Squamous epithelial cells de tection in urine sediment by light microscopyOrdered By: Dr. Fisher on 01-11-2023 Epithelial cells.squamous LM Ql (Urine sed) 0 SEEN /hpf 0-5 [facility] Urine blood detectionOrdered By: Dr. Fisher on 01-11-2023 RBC Ql (U) 50 /ul Negative [facility] RBC Ql (U) 0 SEEN /hpf 0-5 [facility] Urine clarityOrdered By: Dr. Fisher on 01-11-2023 Clarity (U) Turbid Clear [facility] Urine color determinationOrd ered By: Dr. Fisher on 01-11-2023 Color (U) Yellow Yellow [facility] Urine glucose detectionOrder ed By: Dr. Fisher on 01-11-2023 Glucose Ql (U) Normal mg/dl Normal [facility] Urine leukocyte esterase det ection by dipstickOrdered By: Dr. Fisher on 01-11-2023 Leukocyte esterase Test strip Ql (U) 500 /ul Negative [facility] Urine pHOrdered By: Dr. Melanie rios on 01-11-2023 pH (U) 6.0 [pH] 5.0 - 8.0 [facility] Urine sediment bacteria coun t by microscopy (number/high power field)Ordered By: Dr. Fisher on 01-11-2023 Bacteria LM.HPF (Urine sed) [#/Area] 0 /[HPF] None Seen [facility] Urine specific gravity measu rementOrdered By: Dr. Fisher on 01-11-2023 Specific gravity (U) [Rel density] 1.015 1.002-1.030 [facility] Urobilinogen Auto test strip Ql (U)Ordered By: Dr. Fisher on 01-11-2023 Urobilinogen Ql (U) Normal mg/dl Normal [facility] Absolute lymphocyte countOrd ered By: Dr. Fisher on 11-13-2022 Lymphocytes Auto (Unsp spec) [#/Vol] 1.61 10*3/uL 0.83-4.51 [facility] Basophil percentageOrdered B y: Dr. Fisher on 11-13-2022 Basophils/100 WBC (Bld) 0.6 % 0-1 [facility] Chloride [Moles/Vol] 106 mmol/L 98-107 [facility] Eosinophils/100 WBC (Bld) 3.6 % 0-5 [facility] Glucose [Mass/Vol] 100 mg/dL 74-106 [facility] Comment on above: Fasting Glucose resu lt from 100 to 125 mg/dL suggests IMPAIRED HOMEOSTASIS per A.D.A. criteria. Neutrophils (Bld) [#/Vol] 4.2 10*3/uL 2.0-7.7 [facility] Neutrophils/100 WBC (Bld) 62.8 % 47-70 [facility] Potassium [Moles/Vol] 4.4 mmol/L 3.5-5.1 [facility] Sodium [Moles/Vol] 139 mmol/L 136-145 [facility] WBC (Bld) [#/Vol] 6.6 10*3/uL 4.4-11.0 [facility] Blood erythrocytes count (nu mber/volume)Ordered By: Dr. Fisher on 11-13-2022 RBC (Bld) [#/Vol] 4.18 10*6/uL 4.6-6.2 [facility] Blood hemoglobin measurement (mass/volume)Ordered By: Dr. Fisher on 11-13-2022 Hemoglobin (Bld) [Mass/Vol] 12.1 g/dL 13.0-16.5 [facility] Blood lymphocytes/100 leukoc ytesOrdered By: Dr. Fisher on 11-13-2022 Lymphocytes/100 WBC (Bld) 24.2 % 19-41 [facility] Blood monocytes/100 leukocyt esOrdered By: Dr. Fisher on 11-13-2022 Monocytes/100 WBC (Bld) 8.3 % 0-10 [facility] Blood platelet mean volumeOr dered By: Dr. Fisher on 11-13-2022 Platelet mean volume (Bld) [Entitic vol] 9.6 fL 6.2-12.0 [facility] Determination of erythrocyte mean corpuscular volume (MCV)Ordered By: Dr. Fisher on 11-13-2022 MCV (RBC) [Entitic vol] 90.4 fL 80-94 [facility] Hematocrit Auto (Bld) [Volum e fraction]Ordered By: Dr. Fisher on 11-13-2022 Hematocrit (Bld) [Volume fraction] 37.8 % 40-54 [facility] Laboratory - Chemistry and C hemistry - challengeOrdered By: Dr. Fisher on 11-13-2022 CO2 [Moles/Vol] 29.0 mmol/L 21.0-32.0 [facility] Urea nitrogen/Creatinine [Mass ratio] 20.1 mg/mg 10-20 [facility] Laboratory - Hematology and Cell countsOrdered By: Dr. Fisher on 11-13-2022 Erythrocyte distribution width (RBC) [Entitic vol] 48.8 fL 35.1-43.9 [facility] Erythrocyte distribution width (RBC) [Ratio] 14.8 % 11.6-14.6 [facility] Immature granulocytes/100 WBC (Bld) 0.500 % 0.0-0.9 [facility] Comment on above: IG% - Immature Granu locytes (promyelocytes, myelocytes and metamyelocytes) > 1% indicates that a LEFT SHIFT is Present. MCH (RBC) [Entitic mass] 28.9 pg 27.0-32.0 [facility] Nucleated RBC/100 WBC (Bld) [Ratio] 0 % 0-5 [facility] MCHC Auto (RBC) [Mass/Vol]Or dered By: Dr. Fisher on 11-13-2022 MCHC (RBC) [Mass/Vol] 32.0 g/dL 32-36 [facility] No Panel InformationOrdered By: Dr. Fisher on 11-13-2022 Estimated GFR (MDRD) Amer 102 mL/min >60 [facility] Comment on above: GFR Calc Estimated GFR (MDRD) Non-Af Amer 84 mL/min >60 [facility] Comment on above: Non- GFR Calc Platelets bldOrdered By: Dr. Fisher on 11-13-2022 Platelets (Bld) [#/Vol] 192 10*3/uL 150-450 [facility] Serum or plasma calcium messi urement (mass/volume)Ordered By: Dr. Fisher on 11-13-2022 Calcium [Mass/Vol] 9.1 mg/dL 8.5-10.1 [facility] Serum or plasma creatinine m easurement (mass/volume)Ordered By: Dr. Fisher on 11-13-2022 Creatinine [Mass/Vol] 0.95 mg/dL 0.70-1.30 [facility] Comment on above: The validity of the calculated GFR & GFRAA in patients over 70 years has not been determined. Clinical correlation is essential. Serum or plasma urea nitroge n measurement (mass/volume)Ordered By: Dr. Fisher on 11-13-2022 Urea nitrogen [Mass/Vol] 19 mg/dL 7-18 [facility] Thin prep Papanicolaou smear with manual screeningOrdered By: Dr. Fisher on 11-13-2022 Thin prep Papanicolaou smear with manual screening 4 5-15 [facility] Absolute lymphocyte countOrd ered By: Dr. Fisher on 11-06-2022 Lymphocytes Auto (Unsp spec) [#/Vol] 1.47 10*3/uL 0.83-4.51 [facility] Basophil percentageOrdered B y: Dr. Fisher on 11-06-2022 Basophils/100 WBC (Bld) 0.4 % 0-1 [facility] Chloride [Moles/Vol] 105 mmol/L 98-107 [facility] Eosinophils/100 WBC (Bld) 2.7 % 0-5 [facility] Glucose [Mass/Vol] 119 mg/dL 74-106 [facility] Comment on above: Fasting Glucose resu lt from 100 to 125 mg/dL suggests IMPAIRED HOMEOSTASIS per A.D.A. criteria. Neutrophils (Bld) [#/Vol] 4.7 10*3/uL 2.0-7.7 [facility] Neutrophils/100 WBC (Bld) 66.9 % 47-70 [facility] Potassium [Moles/Vol] 4.0 mmol/L 3.5-5.1 [facility] Sodium [Moles/Vol] 137 mmol/L 136-145 [facility] WBC (Bld) [#/Vol] 7.0 10*3/uL 4.4-11.0 [facility] Blood erythrocytes count (nu mber/volume)Ordered By: Dr. Fisher on 11-06-2022 RBC (Bld) [#/Vol] 4.37 10*6/uL 4.6-6.2 [facility] Blood hemoglobin measurement (mass/volume)Ordered By: Dr. Fisher on 11-06-2022 Hemoglobin (Bld) [Mass/Vol] 12.8 g/dL 13.0-16.5 [facility] Blood lymphocytes/100 leukoc ytesOrdered By: Dr. Fisher on 11-06-2022 Lymphocytes/100 WBC (Bld) 21.1 % 19-41 [facility] Blood monocytes/100 leukocyt esOrdered By: Dr. Fisher on 11-06-2022 Monocytes/100 WBC (Bld) 8.6 % 0-10 [facility] Blood platelet mean volumeOr dered By: Dr. Fisher on 11-06-2022 Platelet mean volume (Bld) [Entitic vol] 9.8 fL 6.2-12.0 [facility] Determination of erythrocyte mean corpuscular volume (MCV)Ordered By: Dr. Fisher on 11-06-2022 MCV (RBC) [Entitic vol] 89.9 fL 80-94 [facility] Hematocrit Auto (Bld) [Volum e fraction]Ordered By: Dr. Fisher on 11-06-2022 Hematocrit (Bld) [Volume fraction] 39.3 % 40-54 [facility] Laboratory - Chemistry and C hemistry - challengeOrdered By: Dr. Fisher on 11-06-2022 CO2 [Moles/Vol] 28.0 mmol/L 21.0-32.0 [facility] Urea nitrogen/Creatinine [Mass ratio] 18.6 mg/mg 10-20 [facility] Laboratory - Hematology and Cell countsOrdered By: Dr. Fisher on 11-06-2022 Erythrocyte distribution width (RBC) [Entitic vol] 46.9 fL 35.1-43.9 [facility] Erythrocyte distribution width (RBC) [Ratio] 14.6 % 11.6-14.6 [facility] Immature granulocytes/100 WBC (Bld) 0.300 % 0.0-0.9 [facility] Comment on above: IG% - Immature Granu locytes (promyelocytes, myelocytes and metamyelocytes) > 1% indicates that a LEFT SHIFT is Present. MCH (RBC) [Entitic mass] 29.3 pg 27.0-32.0 [facility] Nucleated RBC/100 WBC (Bld) [Ratio] 0 % 0-5 [facility] MCHC Auto (RBC) [Mass/Vol]Or dered By: Dr. Fisher on 11-06-2022 MCHC (RBC) [Mass/Vol] 32.6 g/dL 32-36 [facility] No Panel InformationOrdered By: Dr. Fisher on 11-06-2022 Estimated GFR (MDRD) Amer 94 mL/min >60 [facility] Comment on above: GFR Calc Estimated GFR (MDRD) Non-Af Amer 77 mL/min >60 [facility] Comment on above: Non- GFR Calc Platelets bldOrdered By: Dr. Fisher on 11-06-2022 Platelets (Bld) [#/Vol] 208 10*3/uL 150-450 [facility] Serum or plasma calcium messi urement (mass/volume)Ordered By: Dr. Fisher on 11-06-2022 Calcium [Mass/Vol] 9.2 mg/dL 8.5-10.1 [facility] Serum or plasma creatinine m easurement (mass/volume)Ordered By: Dr. Fisher on 11-06-2022 Creatinine [Mass/Vol] 1.02 mg/dL 0.70-1.30 [facility] Comment on above: The validity of the calculated GFR & GFRAA in patients over 70 years has not been determined. Clinical correlation is essential. Serum or plasma urea nitroge n measurement (mass/volume)Ordered By: Dr. Fisher on 11-06-2022 Urea nitrogen [Mass/Vol] 19 mg/dL 7-18 [facility] Thin prep Papanicolaou smear with manual screeningOrdered By: Dr. Fisher on 11-06-2022 Thin prep Papanicolaou smear with manual screening 4 5-15 [facility] Absolute lymphocyte countOrd ered By: Dr. Fisher on 10-30-2022 Lymphocytes Auto (Unsp spec) [#/Vol] 1.94 10*3/uL 0.83-4.51 [facility] Basophil percentageOrdered B y: Dr. Fisher on 10-30-2022 Basophils/100 WBC (Bld) 0.5 % 0-1 [facility] Chloride [Moles/Vol] 105 mmol/L 98-107 [facility] Eosinophils/100 WBC (Bld) 2.3 % 0-5 [facility] Glucose [Mass/Vol] 102 mg/dL 74-106 [facility] Comment on above: Fasting Glucose resu lt from 100 to 125 mg/dL suggests IMPAIRED HOMEOSTASIS per A.D.A. criteria. Neutrophils (Bld) [#/Vol] 4.7 10*3/uL 2.0-7.7 [facility] Neutrophils/100 WBC (Bld) 62.7 % 47-70 [facility] Potassium [Moles/Vol] 4.2 mmol/L 3.5-5.1 [facility] Sodium [Moles/Vol] 140 mmol/L 136-145 [facility] WBC (Bld) [#/Vol] 7.5 10*3/uL 4.4-11.0 [facility] Blood erythrocytes count (nu mber/volume)Ordered By: Dr. Fisher on 10-30-2022 RBC (Bld) [#/Vol] 4.10 10*6/uL 4.6-6.2 [facility] Blood hemoglobin measurement (mass/volume)Ordered By: Dr. Fisher on 10-30-2022 Hemoglobin (Bld) [Mass/Vol] 12.3 g/dL 13.0-16.5 [facility] Blood lymphocytes/100 leukoc ytesOrdered By: Dr. Fisher on 10-30-2022 Lymphocytes/100 WBC (Bld) 25.8 % 19-41 [facility] Blood monocytes/100 leukocyt esOrdered By: Dr. Fisher on 10-30-2022 Monocytes/100 WBC (Bld) 8.4 % 0-10 [facility] Blood platelet mean volumeOr dered By: Dr. Fisher on 10-30-2022 Platelet mean volume (Bld) [Entitic vol] 9.6 fL 6.2-12.0 [facility] Determination of erythrocyte mean corpuscular volume (MCV)Ordered By: Dr. Fisher on 10-30-2022 MCV (RBC) [Entitic vol] 90.2 fL 80-94 [facility] Hematocrit Auto (Bld) [Volum e fraction]Ordered By: Dr. Fisher on 10-30-2022 Hematocrit (Bld) [Volume fraction] 37.0 % 40-54 [facility] Laboratory - Chemistry and C hemistry - challengeOrdered By: Dr. Fisher on 10-30-2022 CO2 [Moles/Vol] 31.0 mmol/L 21.0-32.0 [facility] Urea nitrogen/Creatinine [Mass ratio] 21.1 mg/mg 10-20 [facility] Laboratory - Hematology and Cell countsOrdered By: Dr. Fisher on 10-30-2022 Erythrocyte distribution width (RBC) [Entitic vol] 49.1 fL 35.1-43.9 [facility] Erythrocyte distribution width (RBC) [Ratio] 14.6 % 11.6-14.6 [facility] Immature granulocytes/100 WBC (Bld) 0.300 % 0.0-0.9 [facility] Comment on above: IG% - Immature Granu locytes (promyelocytes, myelocytes and metamyelocytes) > 1% indicates that a LEFT SHIFT is Present. MCH (RBC) [Entitic mass] 30.0 pg 27.0-32.0 [facility] Nucleated RBC/100 WBC (Bld) [Ratio] 0 % 0-5 [facility] MCHC Auto (RBC) [Mass/Vol]Or dered By: Dr. Fisher on 10-30-2022 MCHC (RBC) [Mass/Vol] 33.2 g/dL 32-36 [facility] No Panel InformationOrdered By: Dr. Fisher on 10-30-2022 Estimated GFR (MDRD) Amer 96 mL/min >60 [facility] Comment on above: GFR Calc Estimated GFR (MDRD) Non-Af Amer 80 mL/min >60 [facility] Comment on above: Non- GFR Calc Platelets bldOrdered By: Dr. Fisher on 10-30-2022 Platelets (Bld) [#/Vol] 202 10*3/uL 150-450 [facility] Serum or plasma calcium messi urement (mass/volume)Ordered By: Dr. Fisher on 10-30-2022 Calcium [Mass/Vol] 9.2 mg/dL 8.5-10.1 [facility] Serum or plasma creatinine m easurement (mass/volume)Ordered By: Dr. Fisher on 10-30-2022 Creatinine [Mass/Vol] 1.00 mg/dL 0.70-1.30 [facility] Comment on above: The validity of the calculated GFR & GFRAA in patients over 70 years has not been determined. Clinical correlation is essential. Serum or plasma urea nitroge n measurement (mass/volume)Ordered By: Dr. Fisher on 10-30-2022 Urea nitrogen [Mass/Vol] 21 mg/dL 7-18 [facility] Thin prep Papanicolaou smear with manual screeningOrdered By: Dr. Fisher on 10-30-2022 Thin prep Papanicolaou smear with manual screening 4 5-15 [facility] Absolute lymphocyte countOrd ered By: Dr. Fisher on 10-23-2022 Lymphocytes Auto (Unsp spec) [#/Vol] 1.67 10*3/uL 0.83-4.51 [facility] Basophil percentageOrdered B y: Dr. Fisher on 10-23-2022 Basophils/100 WBC (Bld) 0.3 % 0-1 [facility] Chloride [Moles/Vol] 102 mmol/L 98-107 [facility] Eosinophils/100 WBC (Bld) 2.6 % 0-5 [facility] Glucose [Mass/Vol] 91 mg/dL 74-106 [facility] Neutrophils (Bld) [#/Vol] 4.4 10*3/uL 2.0-7.7 [facility] Neutrophils/100 WBC (Bld) 63.8 % 47-70 [facility] Potassium [Moles/Vol] 4.1 mmol/L 3.5-5.1 [facility] Sodium [Moles/Vol] 138 mmol/L 136-145 [facility] WBC (Bld) [#/Vol] 6.9 10*3/uL 4.4-11.0 [facility] Blood erythrocytes count (nu mber/volume)Ordered By: Dr. Fisher on 10-23-2022 RBC (Bld) [#/Vol] 4.39 10*6/uL 4.6-6.2 [facility] Blood hemoglobin measurement (mass/volume)Ordered By: Dr. Fisher on 10-23-2022 Hemoglobin (Bld) [Mass/Vol] 13.0 g/dL 13.0-16.5 [facility] Blood lymphocytes/100 leukoc ytesOrdered By: Dr. Fisher on 10-23-2022 Lymphocytes/100 WBC (Bld) 24.2 % 19-41 [facility] Blood monocytes/100 leukocyt esOrdered By: Dr. Fisher on 10-23-2022 Monocytes/100 WBC (Bld) 8.5 % 0-10 [facility] Blood platelet mean volumeOr dered By: Dr. Fisher on 10-23-2022 Platelet mean volume (Bld) [Entitic vol] 9.5 fL 6.2-12.0 [facility] Determination of erythrocyte mean corpuscular volume (MCV)Ordered By: Dr. Fisher on 10-23-2022 MCV (RBC) [Entitic vol] 89.7 fL 80-94 [facility] Hematocrit Auto (Bld) [Volum e fraction]Ordered By: Dr. Fisher on 10-23-2022 Hematocrit (Bld) [Volume fraction] 39.4 % 40-54 [facility] Laboratory - Chemistry and C hemistry - challengeOrdered By: Dr. Fisher on 10-23-2022 CO2 [Moles/Vol] 29.0 mmol/L 21.0-32.0 [facility] Urea nitrogen/Creatinine [Mass ratio] 20.0 mg/mg 10-20 [facility] Laboratory - Hematology and Cell countsOrdered By: Dr. Fisher on 10-23-2022 Erythrocyte distribution width (RBC) [Entitic vol] 46.4 fL 35.1-43.9 [facility] Erythrocyte distribution width (RBC) [Ratio] 14.4 % 11.6-14.6 [facility] Immature granulocytes/100 WBC (Bld) 0.600 % 0.0-0.9 [facility] Comment on above: IG% - Immature Granu locytes (promyelocytes, myelocytes and metamyelocytes) > 1% indicates that a LEFT SHIFT is Present. MCH (RBC) [Entitic mass] 29.6 pg 27.0-32.0 [facility] Nucleated RBC/100 WBC (Bld) [Ratio] 0 % 0-5 [facility] MCHC Auto (RBC) [Mass/Vol]Or dered By: Dr. Fisher on 10-23-2022 MCHC (RBC) [Mass/Vol] 33.0 g/dL 32-36 [facility] No Panel InformationOrdered By: Dr. Fisher on 10-23-2022 Estimated GFR (MDRD) Amer 91 mL/min >60 [facility] Comment on above: GFR Calc Estimated GFR (MDRD) Non-Af Amer 75 mL/min >60 [facility] Comment on above: Non- GFR Calc Platelets bldOrdered By: Dr. Fisher on 10-23-2022 Platelets (Bld) [#/Vol] 240 10*3/uL 150-450 [facility] Serum or plasma calcium messi urement (mass/volume)Ordered By: Dr. Fisher on 10-23-2022 Calcium [Mass/Vol] 8.8 mg/dL 8.5-10.1 [facility] Serum or plasma creatinine m easurement (mass/volume)Ordered By: Dr. Fisher on 10-23-2022 Creatinine [Mass/Vol] 1.05 mg/dL 0.70-1.30 [facility] Comment on above: The validity of the calculated GFR & GFRAA in patients over 70 years has not been determined. Clinical correlation is essential. Serum or plasma urea nitroge n measurement (mass/volume)Ordered By: Dr. Fisher on 10-23-2022 Urea nitrogen [Mass/Vol] 21 mg/dL 7-18 [facility] Thin prep Papanicolaou smear with manual screeningOrdered By: Dr. Fisher on 10-23-2022 Thin prep Papanicolaou smear with manual screening 7 5-15 [facility] Absolute lymphocyte countOrd ered By: Dr. Fisher on 10-16-2022 Lymphocytes Auto (Unsp spec) [#/Vol] 1.69 10*3/uL 0.83-4.51 [facility] Basophil percentageOrdered B y: Dr. Fisher on 10-16-2022 Basophils/100 WBC (Bld) 0.5 % 0-1 [facility] Chloride [Moles/Vol] 104 mmol/L 98-107 [facility] Eosinophils/100 WBC (Bld) 2.6 % 0-5 [facility] Glucose [Mass/Vol] 99 mg/dL 74-106 [facility] Neutrophils (Bld) [#/Vol] 4.0 10*3/uL 2.0-7.7 [facility] Neutrophils/100 WBC (Bld) 60.4 % 47-70 [facility] Potassium [Moles/Vol] 4.2 mmol/L 3.5-5.1 [facility] Sodium [Moles/Vol] 139 mmol/L 136-145 [facility] WBC (Bld) [#/Vol] 6.6 10*3/uL 4.4-11.0 [facility] Blood erythrocytes count (nu mber/volume)Ordered By: Dr. Fisher on 10-16-2022 RBC (Bld) [#/Vol] 3.92 10*6/uL 4.6-6.2 [facility] Blood hemoglobin measurement (mass/volume)Ordered By: Dr. Fisher on 10-16-2022 Hemoglobin (Bld) [Mass/Vol] 11.8 g/dL 13.0-16.5 [facility] Blood lymphocytes/100 leukoc ytesOrdered By: Dr. Fisher on 10-16-2022 Lymphocytes/100 WBC (Bld) 25.5 % 19-41 [facility] Blood monocytes/100 leukocyt esOrdered By: Dr. Fisher on 10-16-2022 Monocytes/100 WBC (Bld) 10.7 % 0-10 [facility] Blood platelet mean volumeOr dered By: Dr. Fisher on 10-16-2022 Platelet mean volume (Bld) [Entitic vol] 9.7 fL 6.2-12.0 [facility] Determination of erythrocyte mean corpuscular volume (MCV)Ordered By: Dr. Fisher on 10-16-2022 MCV (RBC) [Entitic vol] 91.1 fL 80-94 [facility] Hematocrit Auto (Bld) [Volum e fraction]Ordered By: Dr. Fisher on 10-16-2022 Hematocrit (Bld) [Volume fraction] 35.7 % 40-54 [facility] Laboratory - Chemistry and C hemistry - challengeOrdered By: Dr. Fisher on 10-16-2022 CO2 [Moles/Vol] 29.0 mmol/L 21.0-32.0 [facility] Urea nitrogen/Creatinine [Mass ratio] 20.6 mg/mg 10-20 [facility] Laboratory - Hematology and Cell countsOrdered By: Dr. Fisher on 10-16-2022 Erythrocyte distribution width (RBC) [Entitic vol] 48.0 fL 35.1-43.9 [facility] Erythrocyte distribution width (RBC) [Ratio] 14.5 % 11.6-14.6 [facility] Immature granulocytes/100 WBC (Bld) 0.300 % 0.0-0.9 [facility] Comment on above: IG% - Immature Granu locytes (promyelocytes, myelocytes and metamyelocytes) > 1% indicates that a LEFT SHIFT is Present. MCH (RBC) [Entitic mass] 30.1 pg 27.0-32.0 [facility] Nucleated RBC/100 WBC (Bld) [Ratio] 0 % 0-5 [facility] MCHC Auto (RBC) [Mass/Vol]Or dered By: Dr. Fisher on 10-16-2022 MCHC (RBC) [Mass/Vol] 33.1 g/dL 32-36 [facility] No Panel InformationOrdered By: Dr. Fisher on 10-16-2022 Estimated GFR (MDRD) Amer 89 mL/min >60 [facility] Comment on above: GFR Calc Estimated GFR (MDRD) Non-Af Amer 73 mL/min >60 [facility] Comment on above: Non- GFR Calc Platelets bldOrdered By: Dr. Fisher on 10-16-2022 Platelets (Bld) [#/Vol] 203 10*3/uL 150-450 [facility] Serum or plasma calcium messi urement (mass/volume)Ordered By: Dr. Fisher on 10-16-2022 Calcium [Mass/Vol] 8.7 mg/dL 8.5-10.1 [facility] Serum or plasma creatinine m easurement (mass/volume)Ordered By: Dr. Fisher on 10-16-2022 Creatinine [Mass/Vol] 1.07 mg/dL 0.70-1.30 [facility] Comment on above: The validity of the calculated GFR & GFRAA in patients over 70 years has not been determined. Clinical correlation is essential. Serum or plasma urea nitroge n measurement (mass/volume)Ordered By: Dr. Fisher on 10-16-2022 Urea nitrogen [Mass/Vol] 22 mg/dL 7-18 [facility] Thin prep Papanicolaou smear with manual screeningOrdered By: Dr. Fisher on 10-16-2022 Thin prep Papanicolaou smear with manual screening 6 5-15 [facility] Absolute lymphocyte counton 10-08-2022 Lymphocytes Auto (Unsp spec) [#/Vol] 1.70 10*3/uL 0.83-4.51 [facility] Work Phone: Basophil percentageon 2021 Basophils/100 WBC (Bld) 0.4 % 0-1 [facility] Work Phone: Chloride [Moles/Vol] 103 mmol/L 98-107 [facility] Work Phone: Eosinophils/100 WBC (Bld) 1.7 % 0-5 [facility] Work Phone: Glucose [Mass/Vol] 90 mg/dL 74-106 [facility] Work Phone: Neutrophils (Bld) [#/Vol] 5.7 10*3/uL 2.0-7.7 [facility] Work Phone: Neutrophils/100 WBC (Bld) 68.8 % 47-70 [facility] Work Phone: Potassium [Moles/Vol] 4.1 mmol/L 3.5-5.1 [facility] Work Phone: Sodium [Moles/Vol] 138 mmol/L 136-145 [facility] Work Phone: WBC (Bld) [#/Vol] 8.2 10*3/uL 4.4-11.0 [facility] Work Phone: Blood erythrocytes count (nu mber/volume)on 10-08-2022 RBC (Bld) [#/Vol] 4.13 10*6/uL 4.6-6.2 [facility] Work Phone: Blood hemoglobin measurement (mass/volume)on 10-08-2022 Hemoglobin (Bld) [Mass/Vol] 12.3 g/dL 13.0-16.5 [facility] Work Phone: Blood lymphocytes/100 leukoc yteson 10-08-2022 Lymphocytes/100 WBC (Bld) 20.7 % 19-41 [facility] Work Phone: Blood monocytes/100 leukocyt eson 10-08-2022 Monocytes/100 WBC (Bld) 8.0 % 0-10 [facility] Work Phone: Blood platelet mean volumeon 10-08-2022 Platelet mean volume (Bld) [Entitic vol] 9.6 fL 6.2-12.0 [facility] Work Phone: Determination of erythrocyte mean corpuscular volume (MCV)on 10-08-2022 MCV (RBC) [Entitic vol] 89.1 fL 80-94 [facility] Work Phone: Hematocrit Auto (Bld) [Volum e fraction]on 10-08-2022 Hematocrit (Bld) [Volume fraction] 36.8 % 40-54 [facility] Work Phone: Laboratory - Chemistry and C hemistry - challengeon 10-08-2022 CO2 [Moles/Vol] 30.0 mmol/L 21.0-32.0 [facility] Work Phone: Urea nitrogen/Creatinine [Mass ratio] 19.0 mg/mg 10-20 [facility] Work Phone: Laboratory - Hematology and Cell countson 10-08-2022 Erythrocyte distribution width (RBC) [Entitic vol] 44.8 fL 35.1-43.9 [facility] Work Phone: Erythrocyte distribution width (RBC) [Ratio] 13.9 % 11.6-14.6 [facility] Work Phone: Immature granulocytes/100 WBC (Bld) 0.400 % 0.0-0.9 [facility] Work Phone: Comment on above: IG% - Immature Granu locytes (promyelocytes, myelocytes and metamyelocytes) > 1% indicates that a LEFT SHIFT is Present. MCH (RBC) [Entitic mass] 29.8 pg 27.0-32.0 [facility] Work Phone: Nucleated RBC/100 WBC (Bld) [Ratio] 0 % 0-5 [facility] Work Phone: MCHC Auto (RBC) [Mass/Vol]on 10-08-2022 MCHC (RBC) [Mass/Vol] 33.4 g/dL 32-36 [facility] Work Phone: No Panel Informationon 10-08 Estimated GFR (MDRD) Amer 126 mL/min >60 [facility] Work Phone: Comment on above: GFR Calc Estimated GFR (MDRD) Non-Af Amer 104 mL/min >60 [facility] Work Phone: Comment on above: Non- GFR Calc Platelets bldon 10-08-2022 Platelets (Bld) [#/Vol] 192 10*3/uL 150-450 [facility] Work Phone: Serum or plasma C reactive p rotein measurement (mass/volume)on 10-08-2022 CRP [Mass/Vol] 6.03 mg/L 0.0-3.0 [facility] Work Phone: Comment on above: C-Reactive Protein ( CRP) provides useful information for thediagnosis, therapy and monitoring of inflammatory processesand associated diseases. For the evaluation of Relative Riskfor Cardiovascular Disease, a High Sensitivity CRP (HSCRP)should be ordered. Serum or plasma calcium messi urement (mass/volume)on 10-08-2022 Calcium [Mass/Vol] 8.7 mg/dL 8.5-10.1 [facility] Work Phone: Serum or plasma creatinine m easurement (mass/volume)on 10-08-2022 Creatinine [Mass/Vol] 0.79 mg/dL 0.70-1.30 [facility] Work Phone: [phone] Comment on above: The validity of the calculated GFR & GFRAA in patients over 70 years has not been determined. Clinical correlation is essential. Serum or plasma urea nitroge n measurement (mass/volume)on 10-08-2022 Urea nitrogen [Mass/Vol] 15 mg/dL 7-18 [facility] Work Phone: Thin prep Papanicolaou smear with manual screeningon 10-08-2022 Thin prep Papanicolaou smear with manual screening 5 5-15 [facility] Work Phone: Absolute lymphocyte counton 10-01-2022 Lymphocytes Auto (Unsp spec) [#/Vol] 1.72 10*3/uL 0.83-4.51 [facility] Work Phone: Basophil percentageon 2021 Basophils/100 WBC (Bld) 0.3 % 0-1 [facility] Work Phone: Chloride [Moles/Vol] 102 mmol/L 98-107 [facility] Work Phone: Eosinophils/100 WBC (Bld) 1.7 % 0-5 [facility] Work Phone: Glucose [Mass/Vol] 97 mg/dL 74-106 [facility] Work Phone: Neutrophils (Bld) [#/Vol] 3.7 10*3/uL 2.0-7.7 [facility] Work Phone: Neutrophils/100 WBC (Bld) 60.7 % 47-70 [facility] Work Phone: Potassium [Moles/Vol] 4.0 mmol/L 3.5-5.1 [facility] Work Phone: Sodium [Moles/Vol] 136 mmol/L 136-145 [facility] Work Phone: WBC (Bld) [#/Vol] 6.0 10*3/uL 4.4-11.0 [facility] Work Phone: Blood erythrocytes count (nu mber/volume)on 10-01-2022 RBC (Bld) [#/Vol] 4.26 10*6/uL 4.6-6.2 [facility]: Blood hemoglobin measurement (mass/volume)on 10-01-2022 Hemoglobin (Bld) [Mass/Vol] 12.6 g/dL 13.0-16.5 [facility] Work Phone: Blood lymphocytes/100 leukoc yteson 10-01-2022 Lymphocytes/100 WBC (Bld) 28.5 % 19-41 [facility] Work Phone: Blood monocytes/100 leukocyt eson 10-01-2022 Monocytes/100 WBC (Bld) 8.6 % 0-10 [facility] Work Phone: Blood platelet mean volumeon 10-01-2022 Platelet mean volume (Bld) [Entitic vol] 8.6 fL 6.2-12.0 [facility] Work Phone: Determination of erythrocyte mean corpuscular volume (MCV)on 10-01-2022 MCV (RBC) [Entitic vol] 88.5 fL 80-94 [facility] Work Phone: Hematocrit Auto (Bld) [Volum e fraction]on 10-01-2022 Hematocrit (Bld) [Volume fraction] 37.7 % 40-54 [facility] Work Phone: Laboratory - Chemistry and C hemistry - challengeon 10-01-2022 CO2 [Moles/Vol] 26.0 mmol/L 21.0-32.0 [facility] Work Phone: Urea nitrogen/Creatinine [Mass ratio] 19.6 mg/mg 10-20 [facility] Work Phone: Laboratory - Hematology and Cell countson 10-01-2022 Erythrocyte distribution width (RBC) [Entitic vol] 43.8 fL 35.1-43.9 [facility] Work Phone: Erythrocyte distribution width (RBC) [Ratio] 13.6 % 11.6-14.6 [facility] Work Phone: Immature granulocytes/100 WBC (Bld) 0.200 % 0.0-0.9 [facility] Work Phone: Comment on above: IG% - Immature Granu locytes (promyelocytes, myelocytes and metamyelocytes) > 1% indicates that a LEFT SHIFT is Present. MCH (RBC) [Entitic mass] 29.6 pg 27.0-32.0 [facility] Work Phone: Nucleated RBC/100 WBC (Bld) [Ratio] 0 % 0-5 [facility] Work Phone: MCHC Auto (RBC) [Mass/Vol]on 10-01-2022 MCHC (RBC) [Mass/Vol] 33.4 g/dL 32-36 [facility] Work Phone: No Panel Informationon 10-01 Estimated GFR (MDRD) Amer 154 mL/min >60 [facility] Work Phone: Comment on above: GFR Calc Estimated GFR (MDRD) Non-Af Amer 127 mL/min >60 [facility] Work Phone: Comment on above: Non- GFR Calc Platelets bldon 10-01-2022 Platelets (Bld) [#/Vol] 258 10*3/uL 150-450 [facility] Work Phone: Serum or plasma C reactive p rotein measurement (mass/volume)on 10-01-2022 CRP [Mass/Vol] 10.50 mg/L 0.0-3.0 [facility] Work Phone: Comment on above: C-Reactive Protein ( CRP) provides useful information for thediagnosis, therapy and monitoring of inflammatory processesand associated diseases. For the evaluation of Relative Riskfor Cardiovascular Disease, a High Sensitivity CRP (HSCRP)should be ordered. Serum or plasma calcium messi urement (mass/volume)on 10-01-2022 Calcium [Mass/Vol] 9.0 mg/dL 8.5-10.1 [facility] Work Phone: Serum or plasma creatinine m easurement (mass/volume)on 10-01-2022 Creatinine [Mass/Vol] 0.66 mg/dL 0.70-1.30 [facility] Work Phone: Comment on above: The validity of the calculated GFR & GFRAA in patients over 70 years has not been determined. Clinical correlation is essential. Serum or plasma urea nitroge n measurement (mass/volume)on 10-01-2022 Urea nitrogen [Mass/Vol] 13 mg/dL 7-18 [facility] Work Phone: Thin prep Papanicolaou smear with manual screeningon 10-01-2022 Thin prep Papanicolaou smear with manual screening 8 5-15 [facility] Work Phone: Absolute lymphocyte counton 09-26-2022 Lymphocytes Auto (Unsp spec) [#/Vol] 0.88 10*3/uL 0.83-4.51 [facility] Work Phone: Basophil percentageon 2021 Basophils/100 WBC (Bld) 0.2 % 0-1 [facility] Work Phone: Chloride [Moles/Vol] 102 mmol/L 98-107 [facility] Work Phone: Eosinophils/100 WBC (Bld) 0.5 % 0-5 [facility] Work Phone: Glucose [Mass/Vol] 105 mg/dL 74-106 [facility] Work Phone: Comment on above: Fasting Glucose resu lt from 100 to 125 mg/dL suggests IMPAIRED HOMEOSTASIS per A.D.A. criteria. Neutrophils (Bld) [#/Vol] 6.3 10*3/uL 2.0-7.7 [facility] Work Phone: Neutrophils/100 WBC (Bld) 77.2 % 47-70 [facility] Work Phone: Potassium [Moles/Vol] 4.3 mmol/L 3.5-5.1 [facility] Work Phone: Comment on above: Slight Hemolysis, Re sult may be falsely increased. Sodium [Moles/Vol] 132 mmol/L 136-145 [facility] Work Phone: WBC (Bld) [#/Vol] 8.2 10*3/uL 4.4-11.0 [facility] Work Phone: Blood erythrocytes count (nu mber/volume)on 09-26-2022 RBC (Bld) [#/Vol] 4.42 10*6/uL 4.6-6.2 [facility]: Blood hemoglobin measurement (mass/volume)on 09-26-2022 Hemoglobin (Bld) [Mass/Vol] 12.9 g/dL 13.0-16.5 [facility] Work Phone: Blood lymphocytes/100 leukoc yteson 09-26-2022 Lymphocytes/100 WBC (Bld) 10.7 % 19-41 [facility] Work Phone: Blood monocytes/100 leukocyt eson 09-26-2022 Monocytes/100 WBC (Bld) 10.4 % 0-10 [facility] Work Phone: Blood platelet mean volumeon 09-26-2022 Platelet mean volume (Bld) [Entitic vol] 8.8 fL 6.2-12.0 [facility] Work Phone: Determination of erythrocyte mean corpuscular volume (MCV)on 09-26-2022 MCV (RBC) [Entitic vol] 89.8 fL 80-94 [facility] Work Phone: Hematocrit Auto (Bld) [Volum e fraction]on 09-26-2022 Hematocrit (Bld) [Volume fraction] 39.7 % 40-54 [facility] Work Phone: Laboratory - Chemistry and C hemistry - challengeon 09-26-2022 CO2 [Moles/Vol] 25.0 mmol/L 21.0-32.0 [facility] Work Phone: Urea nitrogen/Creatinine [Mass ratio] 19.3 mg/mg 10- [facility] Work Phone: Laboratory - Hematology and Cell countson 09-26-2022 Erythrocyte distribution width (RBC) [Entitic vol] 45.1 fL 35.1-43.9 [facility] Work Phone: Erythrocyte distribution width (RBC) [Ratio] 13.7 % 11.6-14.6 [facility] Work Phone: Immature granulocytes/100 WBC (Bld) 1.000 % 0.0-0.9 [facility] Work Phone: Comment on above: IG% - Immature Granu locytes (promyelocytes, myelocytes and metamyelocytes) > 1% indicates that a LEFT SHIFT is Present. MCH (RBC) [Entitic mass] 29.2 pg 27.0-32.0 [facility] Work Phone: Nucleated RBC/100 WBC (Bld) [Ratio] 0 % 0-5 [facility] Work Phone: MCHC Auto (RBC) [Mass/Vol]on 09-26-2022 MCHC (RBC) [Mass/Vol] 32.5 g/dL 32-36 [facility] Work Phone: No Panel Informationon 09-26 Estimated GFR (MDRD) Amer 138 mL/min >60 [facility] Work Phone: Comment on above: GFR Calc Estimated GFR (MDRD) Non-Af Amer 114 mL/min >60 [facility] Work Phone: Comment on above: Non- GFR Calc Platelets bldon 09-26-2022 Platelets (Bld) [#/Vol] 279 10*3/uL 150-450 [facility] Work Phone: Serum or plasma calcium messi urement (mass/volume)on 09-26-2022 Calcium [Mass/Vol] 8.8 mg/dL 8.5-10.1 [facility] Work Phone: Serum or plasma creatinine m easurement (mass/volume)on 09-26-2022 Creatinine [Mass/Vol] 0.73 mg/dL 0.70-1.30 [facility] Work Phone: Comment on above: The validity of the calculated GFR & GFRAA in patients over 70 years has not been determined. Clinical correlation is essential. Serum or plasma urea nitroge n measurement (mass/volume)on 09-26-2022 Urea nitrogen [Mass/Vol] 14 mg/dL 7-18 [facility] Work Phone: Thin prep Papanicolaou smear with manual screeningon 09-26-2022 Thin prep Papanicolaou smear with manual screening 5 5-15 [facility] Work Phone: Basophil percentageon 2021 Chloride [Moles/Vol] 100 mmol/L 98-107 [facility] Work Phone: Glucose [Mass/Vol] 94 mg/dL 74-106 [facility] Work Phone: Potassium [Moles/Vol] 4.3 mmol/L 3.5-5.1 [facility] Work Phone: Sodium [Moles/Vol] 133 mmol/L 136-145 [facility] Work Phone: WBC (Bld) [#/Vol] 7.0 10*3/uL 4.4-11.0 [facility] Work Phone: Blood erythrocytes count (nu mber/volume)on 09-24-2022 RBC (Bld) [#/Vol] 4.15 10*6/uL 4.6-6.2 [facility] Work [facility]: Blood hemoglobin measurement (mass/volume)on 09-24-2022 Hemoglobin (Bld) [Mass/Vol] 12.5 g/dL 13.0-16.5 [facility] Work Phone: Blood platelet mean volumeon 09-24-2022 Platelet mean volume (Bld) [Entitic vol] 8.6 fL 6.2-12.0 [facility] Work Phone: Determination of erythrocyte mean corpuscular volume (MCV)on 09-24-2022 MCV (RBC) [Entitic vol] 89.6 fL 80-94 [facility] Work Phone: Hematocrit Auto (Bld) [Volum e fraction]on 09-24-2022 Hematocrit (Bld) [Volume fraction] 37.2 % 40-54 [facility] Work Phone: Laboratory - Chemistry and C hemistry - challengeon 09-24-2022 CO2 [Moles/Vol] 27.0 mmol/L 21.0-32.0 [facility] Work Phone: Cobalamin (Vitamin B12) [Mass/Vol] 247 pg/mL 211-91 [facility] Work Phone: Magnesium [Mass/Vol] 2.5 mg/dL 1.6-2.6 [facility] Work [facility]: Urea nitrogen/Creatinine [Mass ratio] 22.0 mg/mg 10-20 [facility] [facility] Work Phone: Laboratory - Hematology and Cell countson 09-24-2022 Erythrocyte distribution width (RBC) [Entitic vol] 45.3 fL 35.1-43.9 [facility] Work Phone: Erythrocyte distribution width (RBC) [Ratio] 13.9 % 11.6-14.6 [facility] Work Phone: MCH (RBC) [Entitic mass] 30.1 pg 27.0-32.0 [facility] Work Phone: MCHC Auto (RBC) [Mass/Vol]on 09-24-2022 MCHC (RBC) [Mass/Vol] 33.6 g/dL 32-36 [facility] Work Phone: No Panel Informationon 09-24 Estimated GFR (MDRD) Amer 107 mL/min >60 [facility] Work Phone: Comment on above: GFR Calc Estimated GFR (MDRD) Non-Af Amer 88 mL/min >60 [facility] Work Phone: Comment on above: Non- GFR Calc Thyroid Stimulating Hormone (TSH) 0.96 uIU/mL 0.358-3.74 [facility] Work Phone: Vitamin D 25-Hydroxy 46.7 ng/mL [facility] Work Phone: Comment on above: Vitamin D 25(OH) Sta tus Range Deficiency <20 ng/mL (50nmol/L) Insufficiency 20 - 30 ng/mL (50 - 75 nmol/L) Sufficiency 30 - 100 ng/mL (75 - 250 nmol/L) Toxicity >100 ng/mL (>250 nmol/L) Platelets bldon 09-24-2022 Platelets (Bld) [#/Vol] 249 10*3/uL 150-450 [facility] Work Phone: Serum or plasma calcium messi urement (mass/volume)on 09-24-2022 Calcium [Mass/Vol] 8.4 mg/dL 8.5-10.1 [facility] Work Phone: Serum or plasma creatinine m easurement (mass/volume)on 09-24-2022 Creatinine [Mass/Vol] 0.91 mg/dL 0.70-1.30 [facility] Work Phone: Comment on above: The validity of the calculated GFR & GFRAA in patients over 70 years has not been determined. Clinical correlation is essential. Serum or plasma urea nitroge n measurement (mass/volume)on 09-24-2022 Urea nitrogen [Mass/Vol] 20 mg/dL 7-18 [facility] Work Phone: [phone] Thin prep Papanicolaou smear with manual screeningon 09-24-2022 Thin prep Papanicolaou smear with manual screening 6 5-15 [facility] Work Phone: [phone] Absolute lymphocyte counton 09-21-2022 Lymphocytes Auto (Unsp spec) [#/Vol] 1.33 10*3/uL 0.83-4.51 [facility] Work Phone: Basophil percentageon 2021 Basophils/100 WBC (Bld) 0.3 % 0-1 [facility] Work Phone: [phone] Chloride [Moles/Vol] 94 mmol/L 98-107 [facility] Work Phone: [phone] Eosinophils/100 WBC (Bld) 1.9 % 0-5 [facility] Work Phone: [phone] Glucose [Mass/Vol] 99 mg/dL 74-106 [facility] Work Phone: [phone] Neutrophils (Bld) [#/Vol] 5.4 10*3/uL 2.0-7.7 [facility] Work Phone: [phone] Neutrophils/100 WBC (Bld) 68.1 % 47-70 [facility] Work Phone: [phone] Potassium [Moles/Vol] 3.7 mmol/L 3.5-5.1 [facility] Work Phone: [phone] Sodium [Moles/Vol] 128 mmol/L 136-145 [facility] Work Phone: [phone] WBC (Bld) [#/Vol] 8.0 10*3/uL 4.4-11.0 [facility] Work Phone: [phone] Blood erythrocytes count (nu mber/volume)on 09-21-2022 RBC (Bld) [#/Vol] 4.48 10*6/uL 4.6-6.2 [facility] Work Phone: Blood hemoglobin measurement (mass/volume)on 09-21-2022 Hemoglobin (Bld) [Mass/Vol] 13.4 g/dL 13.0-16.5 [facility] Work Phone: Blood lymphocytes/100 leukoc yteson 09-21-2022 Lymphocytes/100 WBC (Bld) 16.6 % 19-41 [facility] Work Phone: Blood monocytes/100 leukocyt eson 09-21-2022 Monocytes/100 WBC (Bld) 12.0 % 0-10 [facility] Work Phone: Blood platelet mean volumeon 09-21-2022 Platelet mean volume (Bld) [Entitic vol] 8.7 fL 6.2-12.0 [facility] Work Phone: Determination of erythrocyte mean corpuscular volume (MCV)on 09-21-2022 MCV (RBC) [Entitic vol] 85.9 fL 80-94 [facility] Work Phone: Hematocrit Auto (Bld) [Volum e fraction]on 09-21-2022 Hematocrit (Bld) [Volume fraction] 38.5 % 40-54 [facility] Work Phone: Laboratory - Chemistry and C hemistry - challengeon 09-21-2022 CO2 [Moles/Vol] 28.0 mmol/L 21.0-32.0 [facility] Work Phone: Urea nitrogen/Creatinine [Mass ratio] 14.9 mg/mg 10-20 [facility] Work Phone: Laboratory - Hematology and Cell countson 09-21-2022 Erythrocyte distribution width (RBC) [Entitic vol] 43.0 fL 35.1-43.9 [facility] Work Phone: Erythrocyte distribution width (RBC) [Ratio] 13.7 % 11.6-14.6 [facility] Work Phone: Immature granulocytes/100 WBC (Bld) 1.100 % 0.0-0.9 [facility] Work Phone: Comment on above: IG% - Immature Granu locytes (promyelocytes, myelocytes and metamyelocytes) > 1% indicates that a LEFT SHIFT is Present. MCH (RBC) [Entitic mass] 29.9 pg 27.0-32.0 [facility] Work Phone: Nucleated RBC/100 WBC (Bld) [Ratio] 0 % 0-5 [facility] Work Phone: MCHC Auto (RBC) [Mass/Vol]on 09-21-2022 MCHC (RBC) [Mass/Vol] 34.8 g/dL 32-36 [facility] Work Phone: No Panel Informationon 09-21 Estimated Creatinine Clearance Calc 78.68 ml/min [facility] Work Phone: Estimated GFR (MDRD) Amer 152 mL/min >60 [facility] Work Phone: Comment on above: GFR Calc Estimated GFR (MDRD) Non-Af Amer 126 mL/min >60 [facility] Work Phone: Comment on above: Non- GFR Calc Platelets bldon 09-21-2022 Platelets (Bld) [#/Vol] 222 10*3/uL 150-450 [facility] Work Phone: Serum or plasma calcium messi urement (mass/volume)on 09-21-2022 Calcium [Mass/Vol] 8.6 mg/dL 8.5-10.1 [facility] Work Phone: Serum or plasma creatinine m easurement (mass/volume)on 09-21-2022 Creatinine [Mass/Vol] 0.67 mg/dL 0.70-1.30 [facility] Work Phone: Comment on above: The validity of the calculated GFR & GFRAA in patients over 70 years has not been determined. Clinical correlation is essential. Serum or plasma urea nitroge n measurement (mass/volume)on 09-21-2022 Urea nitrogen [Mass/Vol] 10 mg/dL 7-18 [facility] Work Phone: Thin prep Papanicolaou smear with manual screeningon 09-21-2022 Thin prep Papanicolaou smear with manual screening 6 5-15 [facility] Work Phone: Absolute lymphocyte counton 09-15-2022 Lymphocytes Auto (Unsp spec) [#/Vol] 0.70 10*3/uL 0.83-4.51 [facility] Work Phone: Basophil percentageon 2021 Lactate [Moles/Vol] 0.9 mmol/L 0.4-2.0 [facility]: Basophil percentage >100 SEEN /hpf 0-5 [facility] Work Phone: [phone] Basophils/100 WBC (Bld) 0.3 % 0-1 [facility] Work Phone: [phone] Bilirubin [Mass/Vol] 1.40 mg/dL 0.20-1.00 [facility] Work Phone: Comment on above: For patients on eltr ombopag therapy, use of Dimension [place] TBIL is not recommended. Chloride [Moles/Vol] 102 mmol/L 98-107 [facility] Work Phone: Eosinophils/100 WBC (Bld) 0.0 % 0-5 [facility] Work Phone: [phone] Glucose [Mass/Vol] 119 mg/dL 74-106 [facility] Work Phone: [phone] Comment on above: Fasting Glucose resu lt from 100 to 125 mg/dL suggests IMPAIRED HOMEOSTASIS per A.D.A. criteria. Neutrophils (Bld) [#/Vol] 12.9 10*3/uL 2.0-7.7 [facility] Work Phone: Neutrophils/100 WBC (Bld) 86.7 % 47-70 [facility] Work Phone: [phone] Potassium [Moles/Vol] 3.5 mmol/L 3.5-5.1 [facility] Work Phone: Protein [Mass/Vol] 7.1 g/dL 6.4-[facility]: Sodium [Moles/Vol] 136 mmol/L 136-145 [facility] Work Phone: WBC (Bld) [#/Vol] 14.9 10*3/uL 4.4-11.0 [facility] Work Phone: Bilirubin Test strip Ql (U)o n 09-15-2022 Bilirubin Ql (U) Negative Negative [facility] Work Phone: Blood erythrocytes count (nu mber/volume)on 09-15-2022 RBC (Bld) [#/Vol] 4.70 10*6/uL 4.6-6.2 [facility] Work Phone: Blood hemoglobin measurement (mass/volume)on 09-15-2022 Hemoglobin (Bld) [Mass/Vol] 14.2 g/dL 13.0-16.5 [facility] Work Phone: Blood lymphocytes/100 leukoc yteson 09-15-2022 Lymphocytes/100 WBC (Bld) 4.7 % 19-41 [facility] Work Phone: Blood monocytes/100 leukocyt eson 09-15-2022 Monocytes/100 WBC (Bld) 7.5 % 0-10 [facility] Work Phone: Blood platelet mean volumeon 09-15-2022 Platelet mean volume (Bld) [Entitic vol] 9.3 fL 6.2-12.0 [facility] Work Phone: Determination of erythrocyte mean corpuscular volume (MCV)on 09-15-2022 MCV (RBC) [Entitic vol] 89.1 fL 80-94 [facility] Work Phone: Hematocrit Auto (Bld) [Volum e fraction]on 09-15-2022 Hematocrit (Bld) [Volume fraction] 41.9 % 40-54 [facility] Work Phone: Ketones Test strip Ql (U)on 09-15-2022 Ketones Ql (U) 15 mg/dl Negative [facility] Work Phone: Laboratory - Chemistry and C hemistry - challengeon 09-15-2022 ALP [Catalytic activity/Vol] 62 U/L 45-117 [facility] Work Phone: ALT [Catalytic activity/Vol] 18 U/L 16-61 [facility] Work Phone: CO2 [Moles/Vol] 24.0 mmol/L 21.0-32.0 [facility] Work Phone: Globulin (S) [Mass/Vol] 3.2 g/dL 2.2-4.2 [facility] Work Phone: Urea nitrogen/Creatinine [Mass ratio] 12.3 mg/mg 10-20 [facility] Work Phone: Laboratory - Hematology and Cell countson 09-15-2022 Erythrocyte distribution width (RBC) [Entitic vol] 44.6 fL 35.1-43.9 [facility] Work Phone: Erythrocyte distribution width (RBC) [Ratio] 13.6 % 11.6-14.6 [facility] Work Phone: Immature granulocytes/100 WBC (Bld) 0.800 % 0.0-0.9 [facility] Work Phone: Comment on above: IG% - Immature Granu locytes (promyelocytes, myelocytes and metamyelocytes) > 1% indicates that a LEFT SHIFT is Present. MCH (RBC) [Entitic mass] 30.2 pg 27.0-32.0 [facility] Work Phone: Nucleated RBC/100 WBC (Bld) [Ratio] 0 % 0-5 [facility] Work Phone: MCHC Auto (RBC) [Mass/Vol]on 09-15-2022 MCHC (RBC) [Mass/Vol] 33.9 g/dL 32-36 [facility] Work Phone: Mucus LM Ql (Urine sed)on Mucus Ql (Urine sed) 0 SEEN /hpf [facility] Work Phone: Nitrite Test strip Ql (U)on 09-15-2022 Nitrite Ql (U) Negative Negative [facility] Work Phone: No Panel Informationon 09-15 Estimated Creatinine Clearance Calc 76.42 ml/min [facility] Work Phone: Estimated GFR (MDRD) Amer 90 mL/min >60 [facility] Work Phone: Comment on above: GFR Calc Estimated GFR (MDRD) Non-Af Amer 74 mL/min >60 [facility] Work Phone: Comment on above: Non- GFR Calc Troponin I High Sensitivity 28 pg/mL 3.0-78.0 [facility] Work Phone: Comment on above: Please Note: New Flower t Units and Gender Specific Reference Ranges. For more information see Policy Stat Procedure [place] High Sensitivity Troponin (TNIH) and attachments. Platelets bldon 09-15-2022 Platelets (Bld) [#/Vol] 189 10*3/uL 150-450 [facility] Work Phone: Protein Test strip Ql (U)on 09-15-2022 Protein Ql (U) 30 mg/dl Negative [facility] Work Phone: Serum or plasma albumin messi urement (mass/volume)on 09-15-2022 Albumin [Mass/Vol] 3.9 g/dL 3.2-5.0 [facility] Work Phone: Serum or plasma albumin/glob ulin mass ratioon 09-15-2022 Albumin/Globulin [Mass ratio] 1.2 {ratio} 0.9-2.4 [facility] Work Phone: Serum or plasma calcium messi urement (mass/volume)on 09-15-2022 Calcium [Mass/Vol] 8.9 mg/dL 8.5-10.1 [facility] Work Phone: Serum or plasma creatinine m easurement (mass/volume)on 09-15-2022 Creatinine [Mass/Vol] 1.06 mg/dL 0.70-1.30 [facility] Work Phone: Comment on above: The validity of the calculated GFR & GFRAA in patients over 70 years has not been determined. Clinical correlation is essential. Serum or plasma urea nitroge n measurement (mass/volume)on 09-15-2022 Urea nitrogen [Mass/Vol] 13 mg/dL 7-18 [facility] Work Phone: Squamous epithelial cells de tection in urine sediment by light microscopyon 09-15-2022 Epithelial cells.squamous LM Ql (Urine sed) 0 SEEN /hpf 0-5 [facility] Work Phone: Thin prep Papanicolaou smear with manual screeningon 09-15-2022 Thin prep Papanicolaou smear with manual screening 60 U/L 15 [facility] Work Phone: Thin prep Papanicolaou smear with manual screening 04-15 [facility] Work Phone: Urine blood detectionon 09-01 RBC Ql (U) 150 /ul Negative [facility] Work Phone: RBC Ql (U) 0 SEEN /hpf 0-5 [facility] Work Phone: Urine clarityon 09-15-2022 Clarity (U) Cloudy Clear [facility] Work Phone: Urine color determinationon 09-15-2022 Color (U) Yellow Yellow [facility] Work Phone: Urine glucose detectionon Glucose Ql (U) Normal mg/dl Normal [facility] Work Phone: Urine leukocyte esterase det ection by dipstickon 09-15-2022 Leukocyte esterase Test strip Ql (U) 500 /ul Negative [facility] Work Phone: Urine pHon 09-15-2022 pH (U) 7.0 [pH] 5.0 - 8.0 [facility] Work Phone: Urine sediment bacteria coun t by microscopy (number/high power field)on 09-15-2022 Bacteria LM.HPF (Urine sed) [#/Area] 3 /[HPF] None Seen [facility] Work Phone: Urine specific gravity measu rementon 09-15-2022 Specific gravity (U) [Rel density] 1.010 1.002-1.030 [facility] Work Phone: Urobilinogen Auto test strip Ql (U)on 09-15-2022 Urobilinogen Ql (U) Normal mg/dl Normal [facility] Work Phone: Absolute lymphocyte counton 08-06-2022 Lymphocytes Auto (Unsp spec) [#/Vol] 1.64 10*3/uL 0.83-4.51 [facility] Work Phone: Basophil percentageon 2021 Basophils/100 WBC (Bld) 0.4 % 0-1 [facility] Work Phone: Bilirubin [Mass/Vol] 0.40 mg/dL 0.20-1.00 [facility] Work Phone: Comment on above: For patients on eltr ombopag therapy, use of Dimension [place] TBIL is not recommended. Chloride [Moles/Vol] 103 mmol/L 98-107 [facility] Work Phone: Eosinophils/100 WBC (Bld) 1.9 % 0-5 [facility] Work Phone: Glucose [Mass/Vol] 124 mg/dL 74-106 [facility] Work Phone: Comment on above: Fasting Glucose resu lt from 100 to 125 mg/dL suggests IMPAIRED HOMEOSTASIS per A.D.A. criteria. Neutrophils (Bld) [#/Vol] 4.3 10*3/uL 2.0-7.7 [facility] Work Phone: Neutrophils/100 WBC (Bld) 63.9 % 47-70 [facility] Work Phone: Potassium [Moles/Vol] 3.6 mmol/L 3.5-5.1 [facility] Work Phone: Protein [Mass/Vol] 6.3 g/dL 6.4-8.2 [facility] Work [facility]: Sodium [Moles/Vol] 136 mmol/L 136-145 [facility] Work Phone: WBC (Bld) [#/Vol] 6.7 10*3/uL 4.4-11.0 [facility] Work Phone: Blood erythrocytes count (nu mber/volume)on 08-06-2022 RBC (Bld) [#/Vol] 4.23 10*6/uL 4.6-6.2 [facility] Work Phone: Blood hemoglobin measurement (mass/volume)on 08-06-2022 Hemoglobin (Bld) [Mass/Vol] 12.9 g/dL 13.0-16.5 [facility] Work Phone: Blood lymphocytes/100 leukoc yteson 08-06-2022 Lymphocytes/100 WBC (Bld) 24.5 % 19-41 [facility] Work Phone: Blood monocytes/100 leukocyt eson 08-06-2022 Monocytes/100 WBC (Bld) 9.0 % 0-10 [facility] Work Phone: [phone] Blood platelet mean volumeon 08-06-2022 Platelet mean volume (Bld) [Entitic vol] 8.9 fL 6.2-12.0 [facility] Work Phone: Determination of erythrocyte mean corpuscular volume (MCV)on 08-06-2022 MCV (RBC) [Entitic vol] 89.1 fL 80-94 [facility] Work Phone: Hematocrit Auto (Bld) [Volum e fraction]on 08-06-2022 Hematocrit (Bld) [Volume fraction] 37.7 % 40-54 [facility] Work Phone: Laboratory - Chemistry and C hemistry - challengeon 08-06-2022 ALP [Catalytic activity/Vol] 57 U/L 45-117 [facility] Work Phone: ALT [Catalytic activity/Vol] 29 U/L 16-61 [facility] Work Phone: CO2 [Moles/Vol] 25.0 mmol/L 21.0-32.0 [facility] Work Phone: Globulin (S) [Mass/Vol] 2.8 g/dL 2.2-4.2 [facility] Work Phone: Urea nitrogen/Creatinine [Mass ratio] 15.8 mg/mg 10-20 [facility] Work Phone: Laboratory - Hematology and Cell countson 08-06-2022 Erythrocyte distribution width (RBC) [Entitic vol] 44.1 fL 35.1-43.9 [facility] Work Phone: Erythrocyte distribution width (RBC) [Ratio] 13.5 % 11.6-14.6 [facility] Work Phone: Immature granulocytes/100 WBC (Bld) 0.300 % 0.0-0.9 [facility] Work Phone: Comment on above: IG% - Immature Granu locytes (promyelocytes, myelocytes and metamyelocytes) > 1% indicates that a LEFT SHIFT is Present. MCH (RBC) [Entitic mass] 30.5 pg 27.0-32.0 [facility] Work Phone: Nucleated RBC/100 WBC (Bld) [Ratio] 0 % 0-5 [facility] Work Phone: MCHC Auto (RBC) [Mass/Vol]on 08-06-2022 MCHC (RBC) [Mass/Vol] 34.2 g/dL 32-36 [facility] Work Phone: No Panel Informationon 08-06 Estimated Creatinine Clearance Calc 97.26 ml/min [facility] Work Phone: Estimated GFR (MDRD) Amer 120 mL/min >60 [facility] Work Phone: Comment on above: GFR Calc Estimated GFR (MDRD) Non-Af Amer 99 mL/min >60 [facility] Work Phone: Comment on above: Non- GFR Calc Platelets bldon 08-06-2022 Platelets (Bld) [#/Vol] 236 10*3/uL 150-450 [facility] Work Phone: Serum or plasma albumin messi urement (mass/volume)on 08-06-2022 Albumin [Mass/Vol] 3.5 g/dL 3.2-5.0 [facility] Work Phone: Serum or plasma albumin/glob ulin mass ratioon 08-06-2022 Albumin/Globulin [Mass ratio] 1.2 {ratio} 0.9-2.4 [facility] Work Phone: Serum or plasma calcium messi urement (mass/volume)on 08-06-2022 Calcium [Mass/Vol] 8.3 mg/dL 8.5-10.1 [facility] Work Phone: Serum or plasma creatinine m easurement (mass/volume)on 08-06-2022 Creatinine [Mass/Vol] 0.82 mg/dL 0.70-1.30 [facility] Work Phone: Comment on above: The validity of the calculated GFR & GFRAA in patients over 70 years has not been determined. Clinical correlation is essential. Serum or plasma urea nitroge n measurement (mass/volume)on 08-06-2022 Urea nitrogen [Mass/Vol] 13 mg/dL 7-18 [facility] Work Phone: Thin prep Papanicolaou smear with manual screeningon 09-05-2022 Thin prep Papanicolaou smear with manual screening 29 U/L 15-37 [facility] Work Phone: Thin prep Papanicolaou smear with manual screening 8 5-15 [facility] Work Phone: Basophil percentageon 2021 Chloride [Moles/Vol] 100 mmol/L 98-107 [facility] Work Phone: Glucose [Mass/Vol] 96 mg/dL 74-106 [facility] Work Phone: Potassium [Moles/Vol] 4.2 mmol/L 3.5-5.1 [facility] Work Phone: Sodium [Moles/Vol] 133 mmol/L 136-145 [facility] Work Phone: Laboratory - Chemistry and C hemistry - challengeon 07-26-2022 CO2 [Moles/Vol] 26.0 mmol/L 21.0-32.0 [facility] Work Phone: Urea nitrogen/Creatinine [Mass ratio] 13.2 mg/mg 10-20 [facility] Work Phone: No Panel Informationon 07-26 Estimated GFR (MDRD) Amer 107 mL/min >60 [facility] Work Phone: Comment on above: GFR Calc Estimated GFR (MDRD) Non-Af Amer 89 mL/min >60 [facility] Work Phone: Comment on above: Non- GFR Calc Serum or plasma calcium messi urement (mass/volume)on 07-26-2022 Calcium [Mass/Vol] 8.7 mg/dL 8.5-10.1 [facility] Work Phone: Serum or plasma creatinine m easurement (mass/volume)on 07-26-2022 Creatinine [Mass/Vol] 0.91 mg/dL 0.70-1.30 [facility] Work Phone: Comment on above: The validity of the calculated GFR & GFRAA in patients over 70 years has not been determined. Clinical correlation is essential. Serum or plasma urea nitroge n measurement (mass/volume)on 07-26-2022 Urea nitrogen [Mass/Vol] 12 mg/dL 7-18 [facility] Work Phone: [phone] Thin prep Papanicolaou smear with manual screeningon 07-26-2022 Thin prep Papanicolaou smear with manual screening 7 5-15 [facility] Work Phone: [phone] Absolute lymphocyte counton 07-18-2022 Lymphocytes Auto (Unsp spec) [#/Vol] 1.34 10*3/uL 0.83-4.51 [facility] Work Phone: [phone] Basophil percentageon 2021 Basophils/100 WBC (Bld) 0.5 % 0-1 [facility] Work Phone: [phone] Bilirubin [Mass/Vol] 0.40 mg/dL 0.20-1.00 [facility] Work Phone: Comment on above: For patients on eltr ombopag therapy, use of Dimension [place] TBIL is not recommended. Chloride [Moles/Vol] 103 mmol/L 98-107 [facility] Work Phone: Eosinophils/100 WBC (Bld) 2.1 % 0-5 [facility] Work Phone: [phone] Glucose [Mass/Vol] 101 mg/dL 74-106 [facility] Work Phone: Comment on above: Fasting Glucose resu lt from 100 to 125 mg/dL suggests IMPAIRED HOMEOSTASIS per A.D.A. criteria. Neutrophils (Bld) [#/Vol] 3.7 10*3/uL 2.0-7.7 [facility] Work Phone: [phone] Neutrophils/100 WBC (Bld) 64.8 % 47-70 [facility] Work Phone: [phone] Potassium [Moles/Vol] 3.9 mmol/L 3.5-5.1 [facility] Work Phone: [phone] Protein [Mass/Vol] 6.1 g/dL 6.4-8.2 [facility] Work Phone: Sodium [Moles/Vol] 135 mmol/L 136-145 [facility] Work Phone: WBC (Bld) [#/Vol] 5.7 10*3/uL 4.4-11.0 [facility] Work Phone: Blood erythrocytes count (nu mber/volume)on 07-18-2022 RBC (Bld) [#/Vol] 4.34 10*6/uL 4.6-6.2 [facility] Work [facility]: Blood hemoglobin measurement (mass/volume)on 07-18-2022 Hemoglobin (Bld) [Mass/Vol] 12.8 g/dL 13.0-16.5 [facility] Work Phone: [phone] Blood lymphocytes/100 leukoc yteson 07-18-2022 Lymphocytes/100 WBC (Bld) 23.6 % 19-41 [facility] Work Phone: Blood monocytes/100 leukocyt eson 07-18-2022 Monocytes/100 WBC (Bld) 8.6 % 0-10 [facility] Work Phone: Blood platelet mean volumeon 07-18-2022 Platelet mean volume (Bld) [Entitic vol] 8.9 fL 6.2-12.0 [facility] Work Phone: Determination of erythrocyte mean corpuscular volume (MCV)on 07-18-2022 MCV (RBC) [Entitic vol] 87.6 fL 80-94 [facility] Work Phone: Hematocrit Auto (Bld) [Volum e fraction]on 07-18-2022 Hematocrit (Bld) [Volume fraction] 38.0 % 40-54 [facility] Work Phone: Laboratory - Chemistry and C hemistry - challengeon 07-18-2022 ALP [Catalytic activity/Vol] 55 U/L 45-117 [facility] Work Phone: ALT [Catalytic activity/Vol] 38 U/L 16-61 [facility] Work Phone: CO2 [Moles/Vol] 27.0 mmol/L 21.0-32.0 [facility] Work Phone: Globulin (S) [Mass/Vol] 2.7 g/dL 2.2-4.2 [facility] Work Phone: Urea nitrogen/Creatinine [Mass ratio] 6.9 mg/mg 10-20 [facility] Work Phone: Laboratory - Hematology and Cell countson 07-18-2022 Erythrocyte distribution width (RBC) [Entitic vol] 43.5 fL 35.1-43.9 [facility] Work Phone: Erythrocyte distribution width (RBC) [Ratio] 13.6 % 11.6-14.6 [facility] Work Phone: Immature granulocytes/100 WBC (Bld) 0.400 % 0.0-0.9 [facility] [facility] Work Phone: Comment on above: IG% - Immature Granu locytes (promyelocytes, myelocytes and metamyelocytes) > 1% indicates that a LEFT SHIFT is Present. MCH (RBC) [Entitic mass] 29.5 pg 27.0-32.0 [facility] Work Phone: Nucleated RBC/100 WBC (Bld) [Ratio] 0 % 0-5 [facility] Work Phone: MCHC Auto (RBC) [Mass/Vol]on 07-18-2022 MCHC (RBC) [Mass/Vol] 33.7 g/dL 32-36 [facility] Work Phone: No Panel Informationon 07-18 Estimated GFR (MDRD) Amer 113 mL/min >60 [facility] Work Phone: Comment on above: GFR Calc Estimated GFR (MDRD) Non-Af Amer 94 mL/min >60 [facility] Work Phone: Comment on above: Non- GFR Calc Thyroid Stimulating Hormone (TSH) 0.44 uIU/mL 0.358-3.74 [facility] Work Phone: Platelets bldon 07-18-2022 Platelets (Bld) [#/Vol] 207 10*3/uL 150-450 [facility] Work Phone: Serum or plasma albumin messi urement (mass/volume)on 07-18-2022 Albumin [Mass/Vol] 3.4 g/dL 3.2-5.0 [facility] Work Phone: Serum or plasma albumin/glob ulin mass ratioon 07-18-2022 Albumin/Globulin [Mass ratio] 1.3 {ratio} 0.9-2.4 [facility] Work Phone: Serum or plasma calcium messi urement (mass/volume)on 07-18-2022 Calcium [Mass/Vol] 7.7 mg/dL 8.5-10.1 [facility] Work Phone: Serum or plasma creatinine m easurement (mass/volume)on 07-18-2022 Creatinine [Mass/Vol] 0.86 mg/dL 0.70-1.30 [facility] Work Phone: Comment on above: The validity of the calculated GFR & GFRAA in patients over 70 years has not been determined. Clinical correlation is essential. Serum or plasma urea nitroge n measurement (mass/volume)on 07-18-2022 Urea nitrogen [Mass/Vol] 6 mg/dL 7-18 [facility] Work Phone: Thin prep Papanicolaou smear with manual screeningon 07-18-2022 Thin prep Papanicolaou smear with manual screening 37 U/L 15-37 [facility] Work Phone: Thin prep Papanicolaou smear with manual screening 5 5-15 [facility] Work Phone: Laboratory - Microbiology an d Antimicrobial susceptibilityon 04-03-2022 SARS-CoV-2 (COVID-19) RNA BERNARDO+probe Ql (Unsp spec) Not detected Not Detect [facility] Work Phone: Comment on above: Normal Reference [...] 04-03 Influenza Types A,B Direct FA (HEIDE) [facility] Work Phone: Absolute lymphocyte counton 03-20-2022 Lymphocytes Auto (Unsp spec) [#/Vol] 2.00 10*3/uL 0.83-4.51 [facility] Work Phone: Basophil percentageon 2021 Basophils/100 WBC (Bld) 0.3 % 0-1 [facility] Work Phone: Bilirubin [Mass/Vol] 0.60 mg/dL 0.20-1.00 [facility] Work Phone: Comment on above: For patients on eltr ombopag therapy, use of Dimension [place] TBIL is not recommended. Chloride [Moles/Vol] 98 mmol/L 98-107 [facility] Work Phone: Eosinophils/100 WBC (Bld) 2.4 % 0-5 [facility] Work Phone: Glucose [Mass/Vol] 108 mg/dL 74-106 [facility] Work Phone: Comment on above: Fasting Glucose resu lt from 100 to 125 mg/dL suggests IMPAIRED HOMEOSTASIS per A.D.A. criteria. Neutrophils (Bld) [#/Vol] 4.2 10*3/uL 2.0-7.7 [facility] Work Phone: Neutrophils/100 WBC (Bld) 61.0 % 47-70 [facility] Work Phone: [phone] Potassium [Moles/Vol] 4.2 mmol/L 3.5-5.1 [facility] Work Phone: [phone] Protein [Mass/Vol] 7.2 g/dL 6.4-8.2 [facility] Work Phone: [phone] Sodium [Moles/Vol] 134 mmol/L 136-145 [facility] Work Phone: [phone] WBC (Bld) [#/Vol] 7.0 10*3/uL 4.4-11.0 [facility] Work Phone: Blood erythrocytes count (nu mber/volume)on 03-20-2022 RBC (Bld) [#/Vol] 5.43 10*6/uL 4.6-6.2 [facility] Work Phone: Blood hemoglobin measurement (mass/volume)on 03-20-2022 Hemoglobin (Bld) [Mass/Vol] 15.8 g/dL 13.0-16.5 [facility] Work Phone: Blood lymphocytes/100 leukoc yteson 03-20-2022 Lymphocytes/100 WBC (Bld) 28.7 % 19-41 [facility] Work Phone: [phone] Blood monocytes/100 leukocyt eson 03-20-2022 Monocytes/100 WBC (Bld) 7.2 % 0-10 [facility] Work Phone: Blood platelet mean volumeon 03-20-2022 Platelet mean volume (Bld) [Entitic vol] 9.3 fL 6.2-12.0 [facility] Work Phone: Determination of erythrocyte mean corpuscular volume (MCV)on 03-20-2022 MCV (RBC) [Entitic vol] 86.6 fL 80-94 [facility] Work Phone: [phone] Hematocrit Auto (Bld) [Volum e fraction]on 03-20-2022 Hematocrit (Bld) [Volume fraction] 47.0 % 40-54 [facility] Work Phone: Laboratory - Chemistry and C hemistry - challengeon 03-20-2022 ALP [Catalytic activity/Vol] 81 U/L 45-117 [facility] Work Phone: [phone] ALT [Catalytic activity/Vol] 41 U/L 16-61 [facility] Work Phone: [phone] CO2 [Moles/Vol] 29.0 mmol/L 21.0-32.0 [facility] Work Phone: [phone] Globulin (S) [Mass/Vol] 3.0 g/dL 2.2-4.2 [facility] Work Phone: [phone] Urea nitrogen/Creatinine [Mass ratio] 8.7 mg/mg 10-20 [facility] Work Phone: Laboratory - Hematology and Cell countson 03-20-2022 Erythrocyte distribution width (RBC) [Entitic vol] 42.5 fL 35.1-43.9 [facility] Work Phone: [phone] Erythrocyte distribution width (RBC) [Ratio] 13.5 % 11.6-14.6 [facility] Work Phone: [phone] Immature granulocytes/100 WBC (Bld) 0.400 % 0.0-0.9 [facility] Work Phone: [phone] Comment on above: IG% - Immature Granu locytes (promyelocytes, myelocytes and metamyelocytes) > 1% indicates that a LEFT SHIFT is Present. MCH (RBC) [Entitic mass] 29.1 pg 27.0-32.0 [facility] Work Phone: [phone] Nucleated RBC/100 WBC (Bld) [Ratio] 0 % 0-5 [facility] Work Phone: MCHC Auto (RBC) [Mass/Vol]on 03-20-2022 MCHC (RBC) [Mass/Vol] 33.6 g/dL 32-36 [facility] Work Phone: No Panel Informationon 03-20 Estimated GFR (MDRD) Amer 106 mL/min >60 [facility] Work Phone: Comment on above: GFR Calc Estimated GFR (MDRD) Non-Af Amer 88 mL/min >60 [facility] Work Phone: Comment on above: Non- GFR Calc Thyroid Stimulating Hormone (TSH) 0.57 uIU/mL 0.358-3.74 [facility] Work Phone: Vitamin D 25-Hydroxy 26.7 ng/mL [facility] Work Phone: Comment on above: Vitamin D 25(OH) Sta tus Range Deficiency <20 ng/mL (50nmol/L) Insufficiency 20 - 30 ng/mL (50 - 75 nmol/L) Sufficiency 30 - 100 ng/mL (75 - 250 nmol/L) Toxicity >100 ng/mL (>250 nmol/L) Platelets bldon 03-20-2022 Platelets (Bld) [#/Vol] 231 10*3/uL 150-450 [facility] Work Phone: Serum or plasma albumin messi urement (mass/volume)on 03-20-2022 Albumin [Mass/Vol] 4.2 g/dL 3.2-5.0 [facility] Work Phone: Serum or plasma albumin/glob ulin mass ratioon 03-20-2022 Albumin/Globulin [Mass ratio] 1.4 {ratio} 0.9-2.4 [facility] Work Phone: Serum or plasma calcium messi urement (mass/volume)on 03-20-2022 Calcium [Mass/Vol] 8.7 mg/dL 8.5-10.1 [facility] Work Phone: Serum or plasma creatinine m easurement (mass/volume)on 03-20-2022 Creatinine [Mass/Vol] 0.92 mg/dL 0.70-1.30 [facility] Work Phone: Comment on above: The validity of the calculated GFR & GFRAA in patients over 70 years has not been determined. Clinical correlation is essential. Serum or plasma urea nitroge n measurement (mass/volume)on 03-20-2022 Urea nitrogen [Mass/Vol] 8 mg/dL 7-18 [facility] Work Phone: Thin prep Papanicolaou smear with manual screeningon 03-20-2022 Thin prep Papanicolaou smear with manual screening 32 U/L 15-37 [facility] Work Phone: Thin prep Papanicolaou smear with manual screening 7 5-15 [facility] Work Phone: Gram stain for investigation of transfusion reactionon 01-04-2022 Microscopic observation Gram stain Nom (Unsp spec) [facility] Work Phone: No Panel Informationon 01-04 Methicillin-Resist S.aureus DNA PCR Negative Negative [facility] Work Phone: Staphylococcus aureus DNA de tection by probe and target amplification methodon 01-04-2022 S. aureus DNA BERNARDO+probe Ql (Unsp spec) Negative Negative [facility] Work Phone: COVID-19 virus antigen assay SARS-CoV-2 (COVID-19) Ag IA.rapid Ql (Resp) [facility] Work Phone: Clostridium difficile detect ion by polymerase chain reaction C. difficile DNA BERNARDO+probe Ql (Unsp spec) [facility] Work Phone: Culture, urine Bacteria identified Cx Nom (U) Klebsiella pneumoniae sp pneum [facility] Work Phone: Laboratory - Microbiology an d Antimicrobial susceptibility Bacteria identified Cx Nom (Bld) No growth in 5 days. [facility] Work Phone: No Panel Information Influenza Types A,B Direct FA (HEIDE) [facility] Work Phone: Vital Signs Date Time Vital Sign Value Performing Clinician Facility 08-18-2025 13:42-0400 Body height 187.[address] Ayad Brown MD Work Phone: [facility] 08-18-2025 13:42-0400 Body mass index (BMI) [Ratio] 38 kg/m2 Dr. Ayad Brown MD Work Phone: [facility] 08-18-2025 13:42-0400 Body weight 134.[address] Ayad Brown MD Work Phone: [facility] 08-18-2025 13:42-0400 Diastolic blood pressure 67 mm[Hg] Dr. Ayad Brown MD Work Phone: 6(533)[phone] [place] [address] 08-18-2025 13:42-0400 Heart rate 65 /min Dr. Ayad Brown MD Work Phone: [phone])[phone] [address] 08-18-2025 13:42-0400 Respiratory rate 20 /min Dr. Ayad Brown MD Work Phone: [facility] 08-18-2025 13:42-0400 Systolic blood pressure 119 mm[Hg] Dr. Ayad Brown MD Work Phone: [facility] 06-10-2025 14:22-0400 Body height 187.[address] Ayad Brown MD Work Phone: [facility] 06-10-2025 14:22-0400 Body mass index (BMI) [Ratio] 38.2 kg/m2 Dr. Ayad Brown MD Work Phone: [facility] 06-10-2025 14:22-0400 Body temperature 98.6 [degF] Dr. Ayad Brown MD Work Phone: [facility] 06-10-2025 14:22-0400 Body weight 135.[address] Ayad Brown MD Work Phone: [facility] 06-10-2025 14:22-0400 Diastolic blood pressure 72 mm[Hg] Dr. Ayad Brown MD Work Phone: [facility] 06-10-2025 14:22-0400 Heart rate 77 /min Dr. Ayad Brown MD Work Phone: [facility] 06-10-2025 14:22-0400 Respiratory rate 16 /min Dr. Ayad Brown MD Work Phone: [facility] 06-10-2025 14:22-0400 SaO2% (BldA) [Mass fraction] 94 % Dr. Ayad Brown MD Work Phone: [facility] 06-10-2025 14:22-0400 Systolic blood pressure 135 mm[Hg] Dr. Ayad Borwn MD Work Phone: 6(790)[phone] [place] [address] 03-01-2025 09:44-0400 Body height 187.[address] Ayad Brown MD Work Phone: 1(246)[phone] [place] [address] 03-01-2025 09:44-0400 Body mass index (BMI) [Ratio] 37 kg/m2 Dr. Ayad Brown MD Work Phone: 2(456)[phone] [place] [address] 03-01-2025 09:44-0400 Body weight 131.[address] Ayad Brown MD Work Phone: 9(474)643-894380 [place] [address] 03-01-2025 09:44-0400 Diastolic blood pressure 75 mm[Hg] Dr. Ayad Brown MD Work Phone: 5(169)870-377453 [place] [address] 03-01-2025 09:44-0400 Heart rate 59 /min Dr. Ayad Brown MD Work Phone: [facility] 03-01-2025 09:44-0400 Respiratory rate 18 /min Dr. Ayad Brown MD Work Phone: 2(221)[phone] [place] [address] 03-01-2025 09:44-0400 SaO2% (BldA) [Mass fraction] 95 % Dr. Ayad Brown MD Work Phone: [facility] 03-01-2025 09:44-0400 Systolic blood pressure 119 mm[Hg] Dr. Ayad Brown MD Work Phone: 8(820)[phone] [place] [address] 12-23-2023 13:23-0500 Body height 182.[address] Ayad Brown Work Phone: 0(238)658-542853 [place] [address] 12-23-2023 13:23-0500 Body mass index (BMI) [Ratio] 37.1 kg/m2 Dr. Ayad Brown Work Phone: 4(601)[phone] [place] [address] 12-23-2023 13:23-0500 Body temperature 98.4 [degF] Dr. Ayad Brown Work Phone: 1(246)979-567453 [place] [address] 12-23-2023 13:23-0500 Body weight 124.[address] Ayad Brown Work Phone: 2(698)035-678180 [place] [address] 12-23-2023 13:23-0500 Diastolic blood pressure 80 mm[Hg] Dr. Ayad Brown Work Phone: 9(101)134-715480 [place] [address] 12-23-2023 13:23-0500 Heart rate 81 /min Dr. Ayad Brown Work Phone: 2(280)123-710480 [place] [address] 12-23-2023 13:23-0500 Respiratory rate 17 /min Dr. Ayad Brown Work Phone: 9(565)525-497880 [place] [address] 12-23-2023 13:23-0500 SaO2% (BldA) [Mass fraction] 95 % Dr. Ayad Brown Work Phone: 9(828)430-915494 [address] 12-23-2023 13:23-0500 Systolic blood pressure 142 mm[Hg] Dr. Ayad Brown Work Phone: 0(658)064-257153 [place] [address] 06-25-2023 08:18-0400 Body height 182.[address] Ayad Brown Work Phone: 6(006)366-825080 [place] [address] 06-25-2023 08:18-0400 Body mass index (BMI) [Ratio] 37.8 kg/m2 Dr. Ayad Brown Work Phone: 5(278)219-880153 [place] [address] 06-25-2023 08:18-0400 Body temperature 97.9 [degF] Dr. Ayad Brown Work Phone: 4(094)095-766053 [place] [address] 06-25-2023 08:18-0400 Body weight 126.[address] Ayad Brown Work Phone: [facility] 06-25-2023 08:18-0400 Diastolic blood pressure 76 mm[Hg] Dr. Ayad Brown Work Phone: [facility] 06-25-2023 08:18-0400 Heart rate 75 /min Dr. Ayad Brown Work Phone: [facility] 06-25-2023 08:18-0400 Respiratory rate 17 /min Dr. Ayad Brown Work Phone: [facility] 06-25-2023 08:18-0400 SaO2% (BldA) [Mass fraction] 95 % Dr. Ayad Brown Work Phone: [facility] 06-25-2023 08:18-0400 Systolic blood pressure 138 mm[Hg] Dr. Ayad Brown Work Phone: [facility] 03-26-2023 15:11-0400 Body height 182.9 cm Johnathan Keller PA-C Work Phone: [facility] 03-26-2023 15:11-0400 Body temperature 98.29 [degF] Johnathan Keller PA-C Work Phone: [facility] 03-26-2023 15:11-0400 Body weight 112.04 kg Johnathan Keller PA-C Work Phone: [facility] 03-26-2023 15:11-0400 Diastolic blood pressure 82 mm[Hg] Johnathan Keller PA-C Work Phone: [facility] 03-26-2023 15:11-0400 Heart rate 76 /min Johnathan Keller PA-C Work Phone: [facility] 03-26-2023 15:11-0400 Respiratory rate 14 /min Johnathan Keller PA-C Work Phone: [facility] 03-26-2023 15:11-0400 SaO2% (BldA) [Mass fraction] 96 % Johnathan Keller PA-C Work Phone: [facility] 03-26-2023 15:11-0400 Systolic blood pressure 140 mm[Hg] Johnathan Keller PA-C Work Phone: [facility] 02-26-2023 09:48-0400 Diastolic blood pressure 74 mm[Hg] Dr. Ayad Brown Work Phone: [facility] 02-26-2023 09:48-0400 Heart rate 84 /min Dr. Ayad Brown Work Phone: [facility] 02-26-2023 09:48-0400 Systolic blood pressure 120 mm[Hg] Dr. Ayad Brown Work Phone: [facility] 02-26-2023 09:03-0400 Body height 182.[address] Ayad Brown Work Phone: [facility] 02-26-2023 09:03-0400 Body mass index (BMI) [Ratio] 32.2 kg/m2 Dr. Ayad Brown Work Phone: [facility] 02-26-2023 09:03-0400 Body temperature 98.6 [degF] Dr. Ayad Brown Work Phone: [facility] 02-26-2023 09:03-0400 Body weight 107.[address] Ayad Brown Work Phone: [facility] 02-26-2023 09:03-0400 Respiratory rate 17 /min Dr. Ayad Brown Work Phone: [facility] 02-26-2023 09:03-0400 SaO2% (BldA) [Mass fraction] 97 % Dr. Ayad Brown Work Phone: [facility] 09-21-2022 15:33-0400 Body temperature 97.6 [degF] Dr. Ayad Brown Work Phone: [facility] Work Phone: 09-21-2022 15:33-0400 Diastolic blood pressure 83 mm[Hg] Dr. Ayad Brown Work Phone: [facility] Work Phone: 09-21-2022 15:33-0400 Heart rate 84 /min Dr. Ayad Brown Work Phone: [facility] Work Phone: 09-21-2022 15:33-0400 Respiratory rate 19 /min Dr. Ayad Brown Work Phone: [facility] Work Phone: 09-21-2022 15:33-0400 SaO2% (BldA) [Mass fraction] 97 % Dr. Ayad Brown Work Phone: [facility] Work Phone: 09-21-2022 15:33-0400 Systolic blood pressure 150 mm[Hg] Dr. Ayad Brown Work Phone: [facility] Work Phone: 09-21-2022 11:00-0400 Inhaled oxygen flow rate 97 L/min Dr. Ayad Brown Work Phone: [facility] Work Phone: 09-16-2022 10:19-0400 Body height 184.[address] Ayad Brown Work Phone: [facility] Work Phone: 09-16-2022 10:19-0400 Body weight 98.[address] Ayad Brown Work Phone: [facility] Work Phone: 09-15-2022 17:56-0400 Body mass index (BMI) [Ratio] 28.8 kg/m2 Dr. Ayad Brown Work Phone: [facility] Work Phone: 09-15-2022 16:56-0400 Body temperature 98.9 [degF] Dr. Ayad Brown Work Phone: [facility] Work Phone: 09-15-2022 16:56-0400 Diastolic blood pressure 74 mm[Hg] Dr. Ayad Brown Work Phone: [facility] Work Phone: 09-15-2022 16:56-0400 Heart rate 89 /min Dr. Ayad Brown Work Phone: [facility] Work Phone: 09-15-2022 16:56-0400 Respiratory rate 24 /min Dr. Ayad Brown Work Phone: [facility] Work Phone: 09-15-2022 16:56-0400 SaO2% (BldA) [Mass fraction] 94 % Dr. Ayad Brown Work Phone: [facility] Work Phone: 09-15-2022 16:56-0400 Systolic blood pressure 139 mm[Hg] Dr. Ayad Brown Work Phone: [facility] Work Phone: 09-15-2022 14:34-0400 Body height 185.[address] Ayad Brown Work Phone: [facility] Work Phone: 09-15-2022 14:34-0400 Body mass index (BMI) [Ratio] 27.6 kg/m2 Dr. Ayad Brown Work Phone: [facility] Work Phone: 09-15-2022 14:34-0400 Body weight 95.[address] Ayad Brown Work Phone: [facility] Work Phone: 08-07-2022 00:00-0400 Respiratory rate 16 /min Dr. Ayad Brown Work Phone: [facility] Work Phone: 08-06-2022 22:23-0400 Diastolic blood pressure 76 mm[Hg] Dr. Ayad Brown Work Phone: [facility] Work Phone: 08-06-2022 22:23-0400 Heart rate 82 /min Dr. Ayad Brown Work Phone: [facility] Work Phone: 08-06-2022 22:23-0400 SaO2% (BldA) [Mass fraction] 96 % Dr. Ayad Brown Work Phone: [facility] Work Phone: 08-06-2022 22:23-0400 Systolic blood pressure 138 mm[Hg] Dr. Ayad Brown Work Phone: [facility] Work Phone: 08-06-2022 20:53-0400 Body height 182.[address] Ayad Brown Work Phone: [facility] Work Phone: 08-06-2022 20:53-0400 Body mass index (BMI) [Ratio] 33.3 kg/m2 Dr. Ayad Brown Work Phone: [facility] Work Phone: 08-06-2022 20:53-0400 Body temperature 97.7 [degF] Dr. Ayad Brown Work Phone: [facility] Work Phone: 08-06-2022 20:53-0400 Body weight 111.[address] Ayad Brown Work Phone: [facility] Work Phone: 06-16-2022 19:20-0400 Body height 187.[address] Ayad Brown Work Phone: [facility] Work Phone: 06-16-2022 19:20-0400 Body mass index (BMI) [Ratio] 33.3 kg/m2 Dr. Ayad Brown Work Phone: [facility] Work Phone: 06-16-2022 19:20-0400 Body temperature 98 [degF] Dr. Ayad Brown Work Phone: [facility] Work Phone: 06-16-2022 19:20-0400 Body weight 117.[address] Ayad Brown Work Phone: [facility] Work Phone: 06-16-2022 19:20-0400 Diastolic blood pressure 80 mm[Hg] Dr. Ayad Brown Work Phone: [facility] Work Phone: 06-16-2022 19:20-0400 Heart rate 84 /min Dr. Ayad Brown Work Phone: [facility] Work Phone: 06-16-2022 19:20-0400 Respiratory rate 16 /min Dr. Ayad Brown Work Phone: [facility] Work Phone: 06-16-2022 19:20-0400 SaO2% (BldA) [Mass fraction] 96 % Dr. Ayad Brown Work Phone: [facility] Work Phone: 06-16-2022 19:20-0400 Systolic blood pressure 161 mm[Hg] Dr. Ayad Brown Work Phone: [facility] Work Phone: 05-30-2022 17:20-0400 Body height 182.[address] Ayad Brown Work Phone: [facility] Work Phone: 05-30-2022 17:20-0400 Body mass index (BMI) [Ratio] 34.8 kg/m2 Dr. Ayad Brown Work Phone: [facility] Work Phone: 05-30-2022 17:20-0400 Body temperature 98.5 [degF] Dr. Ayad Brown Work Phone: [facility] Work Phone: 05-30-2022 17:20-0400 Body weight 116.[address] Ayad Brown Work Phone: [facility] Work Phone: 05-30-2022 17:20-0400 Diastolic blood pressure 89 mm[Hg] Dr. Ayad Brown Work Phone: [facility] Work Phone: 05-30-2022 17:20-0400 Heart rate 95 /min Dr. Ayad Brown Work Phone: [facility] Work Phone: 05-30-2022 17:20-0400 Respiratory rate 15 /min Dr. Ayad Brown Work Phone: [facility] Work Phone: 05-30-2022 17:20-0400 SaO2% (BldA) [Mass fraction] 100 % Dr. Ayad Brown Work Phone: [facility] Work Phone: 05-30-2022 17:20-0400 Systolic blood pressure 165 mm[Hg] Dr. Ayad Brown Work Phone: [facility] Work Phone: 04-25-2022 09:23-0400 Body mass index (BMI) [Ratio] 34.8 kg/m2 Dr. Ayad Brown Work Phone: [facility] Work Phone: 04-25-2022 09:23-0400 Body weight 116.[address] Ayad Brown Work Phone: [facility] Work Phone: 04-25-2022 09:23-0400 Diastolic blood pressure 81 mm[Hg] Dr. Ayad Brown Work Phone: [facility] Work Phone: 04-25-2022 09:23-0400 Respiratory rate 18 /min Dr. Ayad Brown Work Phone: [facility] Work Phone: 04-25-2022 09:23-0400 Systolic blood pressure 163 mm[Hg] Dr. Ayad Brown Work Phone: [facility] Work Phone: Encounters Encounter Date Encounter Type Care Provider Facility Start: 08-19-2025 ambulatory Nadia Long ty:[facility] Start: 08-18-2025 End: 08-18-[address] Alexei Locke MD -[facility] Work Phone: Start: 08-18-2025 End: 08-18-[address] Ayad Brown MD Work Phone: -[facility] Start: 08-03-[address] Nadia Fisher MD -[facility] Start: 08-03-2025 End: 08-03-2025 ambulatory Ayad Brown Facility:[facility] Start: 07-06-2025 End: 07-06-2025 Patient encounter procedure Johnathan Keller PA-C Work Phone: Urology Comment on above: Sujey rash of groi n (Primary Dx); Rash of groin; Benign prostatic hyperplasia without lower urinary tract symptoms; Screening for genitourinary condition; Pain in testicle, unspecified laterality Start: 07-06-2025 End: 07-06-2025 ambulatory JOHNATHAN KELLER Facility:[facility] Start: 06-10-2025 End: 06-10-[address] Paul Connor MD -[facility] Work Phone: Start: 06-10-2025 End: 06-10-[address] Ayad Brown MD Work Phone: -[facility] Start: 05-03-2025 End: 05-05-2025 Telephone encounter Johnathan Keller PA-C Work Phone: Urology Comment on above: Appointment Start: 04-28-2025 End: 04-28-[address] Ayad Brown MD Work Phone: [facility] Work Phone: Start: 04-28-2025 End: 04-28-[address] Nadia Fisher MD -[facility] Start: 04-28-2025 End: 04-28-2025 ambulatory Ayad Chi Kevin Facility:[facility] Start: 04-12-2025 ambulatory Ayad Chi Kevin Facility:[facility] Start: 04-12-[address] Nadia Fisher MD -[facility] Start: 03-12-2025 ambulatory Ayad Chi Kevin Facility:[facility] Start: 03-12-[address] Nadia Fisher MD -[facility] Start: 03-11-2025 ambulatory Ayad Chi Kevin Facility:[facility] Start: 03-11-[address] Nadia Fisher MD -[facility] Start: 03-01-2025 End: 03-01-[address] Alexei Locke MD -[facility] Work Phone: Start: 03-01-2025 End: 03-01-2025 ambulatory Ayad Chi Kevin Facility:[facility] Start: 01-13-2025 ambulatory Ayad Chi Kevin Facility:[facility] Start: 12-10-2024 End: 12-10-2024 ambulatory Ayad Chi Kevin Facility:[facility] Start: 11-28-2024 ambulatory Alexei Chucky Facility:[facility] Start: 11-27-2024 End: 11-27-2024 ambulatory Alexei Chucky Facility:[facility] Start: 10-28-2024 ambulatory Nadia Long ty:[facility] Start: 10-21-2024 End: 10-21-2024 ambulatory Ayad Chi Kevin Facility:[facility] Start: 01-17-2024 End: 01-17-[address] Ayad Brown Work Phone: [facility] Work Phone: Start: 01-17-2024 End: 01-17-[address] Ayad Brown Work Phone: [facility] Start: 12-23-2023 End: 12-23-[address] Ayad Brown Work Phone: [facility] Work Phone: Start: 10-23-2023 End: 10-23-[address] Ayad Brown Work Phone: [facility] Start: 10-23-2023 Registered Referred [facility] Start: 10-14-2023 End: 10-14-2023 ambulatory [facility] Work Phone: Start: 10-14-2023 End: 10-14-2023 Departed Referred [facility] Start: 07-01-2023 End: 07-01-[address] Ayad Brown Work Phone: [facility] Work Phone: Start: 07-01-2023 End: 07-01-[address] Ayad Brown Work Phone: [facility] Start: 07-01-[address] Ayad mills Work Phone: [facility] Start: 06-25-2023 End: 06-25-[address] Ayad Brown Work Phone: [facility] Work Phone: Start: 06-10-2023 End: 06-10-[address] Ayad Brown Work Phone: [facility] Work Phone: Start: 06-10-2023 End: 06-10-[address] Ayad Brown Work Phone: [facility] Start: 05-02-2023 End: 05-02-[address] Ayad Brown Work Phone: [facility] Work Phone: Start: 04-11-2023 End: 04-11-[address] Ayad Brown Work Phone: [facility] Start: 04-03-2023 End: 04-03-[address] Ayad Brown Work Phone: [facility] Start: 03-27-2023 Telephone encounter Johnathan Santi feldman PA-C Work Phone: Urology Comment on above: Torpedo Shooter - O ther Start: 03-26-2023 End: 03-26-2023 Patient encounter procedure Johnathan Keller PA-C Work Phone: Urology Comment on above: Benign prostatic hyp erplasia without lower urinary tract symptoms (Primary Dx); Acute cystitis without hematuria Start: 03-25-2023 Telephone encounter Johnathannavin feldman PA-C Work Phone: Urology Comment on above: Received Outside [facility] Records Start: 02-26-2023 End: 02-26-[address] Ayad Brown Work Phone: [facility] Start: 02-11-2023 End: 02-11-[address] Ayad Brown Work Phone: [facility] Work Phone: Start: 02-11-2023 End: 02-11-[address] Ayad Brown Work Phone: [facility] Start: 02-11-2023 Registered Referred [facility] Start: 02-09-2023 End: 02-09-2023 ambulatory [facility] Work Phone: Start: 02-09-2023 End: 02-09-2023 Departed Referred [facility] Start: 02-09-2023 Registered Referred [facility] Start: 01-14-2023 End: 01-14-[address] Ayad Brown Work Phone: [facility] Work Phone: Start: 01-14-2023 End: 01-14-[address] Ayad Brown Work Phone: [facility] Start: 01-14-2023 Registered Referred [facility] Start: 11-13-2022 End: 11-13-[address] Ayad Brown Work Phone: [facility] Start: 11-13-[address] Ayad mills Work Phone: [facility] Start: 11-06-2022 End: 11-06-[address] Ayad Brown Work Phone: [facility] Work Phone: Start: 11-06-2022 End: 11-06-[address] Ayad Brown Work Phone: [facility] Start: 11-06-[address] Ayad mills Work Phone: [facility] Start: 10-30-2022 End: 10-30-[address] Ayad Brown Work Phone: [facility] Work Phone: Start: 10-30-2022 End: 10-30-[address] Ayad Brown Work Phone: [facility] Start: 10-30-[address] Ayad mills Work Phone: [facility] Start: 10-23-2022 End: 10-23-[address] Ayad Brown Work Phone: [facility] Work Phone: Start: 10-23-2022 End: 10-23-[address] Ayad Brown Work Phone: [facility] Start: 10-16-[address] Ayad mills Work Phone: [facility] Start: 10-08-[address] Ayad mills Work Phone: [facility] Start: 10-01-[address] Ayad mills Work Phone: [facility] Start: 09-26-[address] Ayad mills Work Phone: [facility] Start: 09-24-[address] Ayad mills Work Phone: [facility] Start: 09-21-2022 Non-patient / Non-visit Dr. Carlos Brown Work Phone: [facility] Start: 09-20-2022 Non-patient / Non-visit Dr. Carlos Brown Work Phone: [facility] Start: 09-19-2022 Non-patient / Non-visit Dr. Carlos Brown Work Phone: [facility] Start: 09-18-2022 Non-patient / Non-visit Dr. Carlos Brown Work Phone: [facility] Start: 09-17-2022 Non-patient / Non-visit Dr. Carlos Brown Work Phone: [facility] Start: 09-16-2022 Non-patient / Non-visit Dr. Carlos Brown Work Phone: [facility] Start: 09-15-2022 Non-patient / Non-visit Dr. Carlos Brown Work Phone: [facility] Start: 09-15-2022 End: 09-21-2022 Evaluation and management of inpatient [facility] Start: 09-13-[address] Ayad lord Work Phone: [facility]-Physical Therapy Start: 08-06-2022 End: 08-07-2022 Emergency department patient visit Dr. Ayad Brown Work Phone: [facility]-Emergency Department Start: 07-26-2022 End: 07-26-[address] Ayad Brown Work Phone: [facility] Work Phone: Start: 07-26-2022 End: 07-26-[address] [facility] Start: 07-18-2022 End: 07-18-[address] Ayad Brown Work Phone: [facility] Start: 06-16-2022 End: 06-16-2022 Emergency department patient visit Dr. Ayad Brown Work Phone: [facility]Emergency Department Start: 05-30-2022 End: 05-30-2022 Emergency department patient visit Dr. Ayad Brown Work Phone: [facility]Emergency Department Start: 05-23-2022 End: 05-23-[address] Ayad Brown Work Phone: [facility] Start: 04-25-2022 End: 04-25-[address] Ayad Brown Work Phone: [facility] Start: 04-03-2022 End: 04-03-2022 Patient encounter procedure [facility]-Pulmonary Services/Neurology Start: 03-20-2022 End: 03-20-2022 Patient encounter procedure [facility]-Laboratory, Phy Office 3rd Flr Start: 01-04-2022 End: 01-04-2022 Patient encounter procedure [facility]Laboratory, Specimen Procedures Date Procedure Procedure Detail Performing [...] DTaP,Tdap,Td Vaccine (3 - Td or Tdap) [facility] Start: 2030 RSV Vaccine (1 - 1-d ose 75+ series) RSV Vaccine (1 - 1-dose 75+ series) [facility] Start: 08-02-2025 Influenza vaccination [facility] Start: 05-18-2025 End: 05-18-2025 Patient encounter procedure 05/18/2025 11:30 AM EDT Office Visit Urology [address] [place] [address] Johnathan Keller PA-C [address] [place] [address] CONSULT: Testicular Pain/Discomfort. NAOMI for BPH. [facility] to fax US report. [place] [facility] Comment on above: CONSULT: Testicular Pain/Discomfort. NAOMI for BPH. [facility] to fax US report. [place] Start: 12-02-2024 Advance Directive Discussion Advance Directive Discussion [facility] Start: 12-02-2024 Medicare Advantage A nnual Wellness Visit Medicare Advantage Annual Wellness Visit [facility] Start: 08-02-2024 Covid-19 Vaccine ( season) Covid-19 Vaccine ( season) [facility] Start: 08-02-2023 Influenza vaccination INFLUENZ A (Season Ended) [facility] Start: 12-02-2022 ADVANCE DIRECTIVE DISCUSSION ADVANCE DIRECTIVE DISCUSSION [facility] Start: 12-02-2022 DEPRESSION ASSESSMENT DEPRESSION ASS ESSMENT [facility] Start: 09-25-2022 Blood chemistry [facility] Work Phone: Start: 09-24-2022 Blood chemistry [facility] Work Phone: Start: 09-23-2022 Blood chemistry [facility] Work Phone: Start: 09-22-2022 Blood chemistry [facility] Work Phone: Start: 09-21-2022 Patient discharge [facility] Work Phone: Start: 09-21-2022 Fluid restriction [facility] Work Phone: Start: 09-20-2022 Removal of urinary catheter [facility] Work Phone: Start: 09-16-2022 Introduction of urin benjy catheter [facility] Work Phone: Start: 09-15-2022 Following clinical pathway protocol [facility] Work Phone: Start: 09-15-2022 Assessment of risk o f venous thromboembolism [facility] Work Phone: Start: 09-15-2022 Insertion of cathete r into peripheral vein [facility] Work Phone: Start: 09-15-2022 Providing care accor ding to standard [facility] Work Phone: Start: 09-15-2022 Provision of activit y privileges [facility] Work Phone: Start: 09-15-2022 Referral to occupati onal therapist [facility] Work Phone: Start: 09-15-2022 Referral to service [facility] Work Phone: Start: 09-15-2022 Speech therapy assessment [facility] Work Phone: Start: 09-15-2022 [facility] Work Phone: Start: 09-15-2022 Verification routine [facility] Work Phone: Start: 09-15-2022 Admission procedure [facility] Work Phone: Start: 09-15-2022 [facility] Work Phone: Start: 09-15-2022 Plain chest X-ray Chest 1 View (Port able) [facility] Work Phone: Start: 09-15-2022 XR Chest Single view [facility] Work Phone: Start: 09-15-2022 End: 09-15-2022 Blood culture [facility] Work Phone: Start: 09-15-2022 Inhalation therapy procedure [facility] Work Phone: Start: 09-15-2022 Patient referral to dietitian [facility] Work Phone: Start: 05-15-2022 COVID-19 VACCINE (5 - Booster for Moderna series) COVID-19 VACCINE (5 - Booster for Moderna series) [facility] Start: 2020 PNEUMOCOCCAL: 65+ (1 - PCV) PNEUMOCOCCAL: 65+ (1 - PCV) [facility] Start: 2010 PROSTATE CANCER SCRE ENING DISCUSSION PROSTATE CANCER SCREENING DISCUSSION [facility] Start: 2005 SHINGRIX VACCINE (1 of 2) BUNDY GRIX VACCINE (1 of 2) [facility] Start: 2000 COLOGUARD (FIT-DNA) COLOGUARD (FIT-D NA) [facility] Start: 2000 Colonoscopy COLONOSCOPY [facility] Start: 2000 COLORECTAL CANCER SCREENING COLORECTAL CANCER SCREENING [facility] Start: [address] COLONOGRAPHY [facility] Start: 2000 DIABETES SCREEN DIABETES SCREEN [facility] Start: 2000 Diabetes Screening Diabetes Screenin g [facility] Start: 2000 FECAL OCCULT BLOOD FECAL OCCULT BLOO D [facility] Start: 2000 Screening for malign ant neoplasm of colon [facility] Start: 2000 SIGMOIDOSCOPY SIGMOIDOSCOPY [facility] Start: 1990 Lipid panel Lipid Screening [facility] Start: 1990 LIPID SCREEN LIPID SCREEN [facility] Start: 1974 Urine microalbumin profile DTAP,TDAP,TD (1 - Tdap) [facility] Start: 1973 Anxiety Screening Anxiety Screening [facility] Start: 1973 Depression Screening Depression Scre ening [facility] Start: 1973 HEPATITIS C SCREENING HEPATITIS C [facility] Start: 1973 Hepatitis C screening Hepatitis C [facility] Start: [birth year]-27-1956 COVID-19 VACCINE (#1) COVID-19 VACCI NE (#1) [facility] Start: 1955 ABDOMINAL AORTIC ANE URYSM SCREENING ABDOMINAL AORTIC ANEURYSM SCREENING [facility] Start: 1955 Abdominal aortic ane urysm screening Abdominal Aortic Aneurysm Screening [facility] Anion gap measurement [facility] Work Phone: Bacteria identified in Blood by Culture Blood Culture [facility] Work Phone: Bacteria identified in Urine by Culture Urine Culture [facility] Work Phone: Blood culture [facility] Work Phone: BUN/Creatinine ratio [facility] Work Phone: Calcium [Mass/volume ] in Serum or Plasma [facility] Work Phone: Carbon dioxide, tota l [Moles/volume] in Serum or Plasma [facility] Work Phone: Chloride [Moles/volu me] in Serum or Plasma [facility] Work Phone: Creatinine [Moles/vo lume] in Serum or Plasma [facility] Work Phone: Glucose [Mass/volume ] in Serum or Plasma [facility] Work Phone: Hematocrit [Volume Fraction] of Blood [facility] Work Phone: Hemoglobin [Mass/vol ume] in Blood [facility] Work Phone: Leukocytes [#/volume ] in Blood [facility] Work Phone: Mean corpuscular hemoglobin concentration determination [facility] Work Phone: Mean corpuscular hemoglobin determination [facility] Work Phone: Measurement of renal function [facility] Work Phone: Neutrophil count [facility] Work Phone: Neutrophil percent differential count [facility] Work Phone: Patient Education [facility] Work Phone: Patient referral [facility] Work Phone: Platelets [#/volume] in Blood [facility] Work Phone: POST VOID RESIDUAL POST VOID RES IDUAL Procedures Routine Benign prostatic hyperplasia without lower urinary tract symptoms Screening for genitourinary condition Ordered: 07/06/2025 [facility] Work Phone: Comment on above: Ordered: 07/06/2025 Potassium [Moles/vol ume] in Serum or Plasma [facility] Work Phone: Red blood cell count [facility] Work Phone: Red cell distributio n width determination [facility] Work Phone: Sodium [Moles/volume ] in Serum or Plasma [facility] Work Phone: Urea nitrogen [Mass/volume] in Serum or Plasma [facility] Work Phone: [facility] Immunizations Immunization Date Immunization Notes Care Provider Fa [facility] 05-30-2022 tetanus toxoid, redu sybil diphtheria toxoid, and acellular pertussis vaccine, adsorbed Dr. Ayad Brown Work Phone: [facility] 03-20-2022 Covid (Moderna) Dr. Ayad Brown Work Phone: [facility] 09-19-2021 Covid (Moderna) Dr. Ayad Brown Work Phone: [facility] 09-19-2021 influenza virus vaccine, unspecified formulation Johnathan Keller PA-C Work Phone: [facility] 01-17-2021 Covid (Moderna) Dr. Ayad Brown Work Phone: [facility] 12-21-2020 Covid (Moderna) Dr. Ayad Brown Work Phone: [facility] 08-04-2019 Influenza virus vaccine [facility] Payers Date Payer Category Payer Medicare (Managed Care) 1.2. [id number] 2024 Self-pay [id number] 2024 Medicare [id number] 2013 Medicaid [id number] 2010 Medicare [id number] 2010 Medicare MEDICARE MEDICAR E A AND B [id number] 2010-[facility] [phone] [address] [address] [place] [address] Medicare [id number] 2009 Medicaid [id number] Unknown [id number] 62 Unknown [id number] [id number] 62 Unknown [id number] [id number] 62 Unknown [id number] 2.16.840.1.469503.3.579.2.4 62 Unknown [id number] 2.16.840.1.514823.3.579.2.4 62 Unknown [id number] 2.16.840.1.327932.3.579.2.4 62 Unknown [id number] 2.16.840.1.351414.3.579.2.4 62 Unknown [id number] 2.16.840.1.458272.3.579.2.4 62 Unknown [id number] 2.16.840.1.760514.3.579.2.4 62 Unknown [id number] 2.16.840.1.400863.3.579.2.4 62 Unknown [id number] 2.16.840.1.187010.3.579.2.4 62 Unknown [id number] 2.16.840.1.240338.3.579.2.4 62 Unknown [id number] 2.16.840.1.936526.3.579.2.4 62 Unknown [id number] 2.16.840.1.755268.3.579.2.4 62 Unknown [id number] 2.16.840.1.761734.3.579.2.4 62 Unknown [id number] 2.16.840.1.713796.3.579.2.4 62 Unknown [id number] 62 Social History Date Type Detail Facility Start: 06-05-2021 End: 12-23-2023 Tobacco smoking status WIIS Unknown if ever smoked [facility] Start: 02-23-2021 None [facility] Start: 02-23-2021 Alone [facility] Start: 04-14-2021 Cigarettes [facility] Start: 1955 Sex Assigned At Male [facility] Start: 08-31-2018 End: 02-19-2025 Tobacco smoking status WIIS Ex-smoker [facility] End: 06-30-2018 History of tobacco use Current smoker [facility] End: 06-30-2018 History of tobacco use Cigarette Smoker [facility] Start: 08-31-2018 Tobacco use and exposure Smokeless tobacco non-user [facility] Start: 03-25-2023 [facility] intake [facility] Start: 1955 Sex Assigned At Not on file [facility] Start: 03-26-2023 Tobacco use and exposure Former smokeless tobacco user [facility] History of tobacco use Chews [facility] Start: 03-26-2023 End: 07-06-2025 Alcohol intake Ex-drinker (finding) [facility] Start: 03-26-2023 End: 05-03-2025 History of Social function [facility] Start: 03-26-2023 End: 05-03-2025 Tobacco use panel [facility] National Score (1-100), lower number is lower risk [address] [facility] Goals Date Patient Goal Desired Activity /State Functional Status Date Assessment Result Facility 09-21-2022 Functional status Chair [facility] Work Phone: Mental Status Date Assessment Result Facility 09-21-2022 Cognitive function Voice/Name [facility] Work Phone: 09-20-2022 Cognitive function Remote Intact [facility] Work Phone: 09-15-2022 Cognitive function Passive [facility] Work Phone: Clinical Notes 03-25-2023 to 08-18-2025 Note Date & Type Note Facility 08-18-2025 Progress note [facility] 08-18-2025 Progress note Note Date/Time August 18, 2025 2:12pm [facility] [address] [place], [place] [address] OFFICE VISIT Date of Service: 08/18/25 MR#: [id number] Acct: [id number] Name: ERNST MILES Rep #: [id number] : 1955 Provider: Dr. Doroteo Locke MD Age/Sex: 69/M Location[place] [facility] [place] Status: Signed HPI HPI History of Present Illness Details: This gentleman with history of mild to moderate coronary artery disease, hypertension, dyslipidemia, meningioma, schizophrenia and dementia is here for follow-up visit. Complains of rare skipped beats. Occasional complaints of shortness of breath when laying down but not on regular basis. 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 Accompanied by: Self Is patient [...] tablet acetaminophen 650 mg rectal 650 mg [place] Q4H PRN 06/02/24 08/18/25 History suppository albuterol sulfate 2.5 mg/3 mL 2.5 mg inhalation Q4H [place] N 06/02/24 08/18/25 History (0.083 %) solution [...] mineral oil (Fleet Mineral Oil 118 ml [place] DAILY PRN con stipation 06/02/24 08/18/25 History [...] bisacodyl 10 mg rectal suppository 10 mg [place] QDAY PRN 0 12/10/24 08/18/25 History chlorhexidine [...] participate in: other details: stretching frequency: daily millie/hindu: [employer] seatbelt use: always ROS Const Const: Positive [...] %: 60 08/18/25 1412 <Electronically signed by Aleexi Locke MD> Date _ Alexei Locke MD Cosigner Signature: Date (if applicable) CC: Nadia Fisher MD ~ [employer] Work Phone: [phone]) 574-651608-05-2025 Instructions* Patient Instructions* Johnathan Keller PA-C - [...] - The prescription has been sent to [facility]. - If the rash worsens or does not improve after one month, schedule a follow-up visit. - Plan to see your provider once a year (or have your regular care provider renew it) to maintain the prescription as needed. - If the rash fails to respond or changes in appearance, you may be referred to dermatology for further evaluation. [facility] NoteHNO ID: [id number] Author: JOHNATHAN KELLER PA-C Service: ? Author Type: Physician Basin Operator Type: Progress Notes Filed: 07/06/2025 10:11 Note Text: [facility] PATIENT CLINIC NOTE (M) Note was generated by [employer] and edited as appropriate SERVICE DATE: July 06, 2025 NAME: Ernst Miles GENDER: male CHIEF COMPLAINT: The patient is a 69-year-old male presenting for evaluation of a groin rash. HISTORY OF PRESENT ILLNESS: The patient is a 69-year-old male presenting for evaluation of a groin rash. Groin Rash: - Rash in the groin area x2 months. - Described as a bed of balls. - No treatment initiated prior to this [...] MCG DAILY November 23, 2019 3:03pm 11-23-2019 [facility] ([id number]) meloxicam (MOBIC) 15 mg tablet (Patient taking [...] ounces of liquid and take as directed. gfiywptokcsvq-zqf-fwka73-PF (REFRESH DIGITAL PF) 0.5-1-0.5 % dpet Use in eyes three times daily. One drop in both eyes three times daily ANTACID, CALCIUM CARBONATE, ORAL Take 500 mg by mouth twice daily. ipratropium bromide (ATROVENT) 42 mcg (0.06 %) nasal spray Use 1 [place] in the nose twice daily. methyl salicylate-menthol [...] 2 %-0.5 % EYE (more content not included)...[facility] 07-06-2025 History of Present illness Narrative* Johnathan Keller PA-C - 07/06/2025 9:42 AM EDT Images from the original note were not included. [facility] NEW PATIENT CLINIC NOTE (M) Note was generated by [employer] and edited as appropriate SERVICE DATE: July 06, 2025 NAME: Ernst Miles GENDER: male CHIEF COMPLAINT: The patient is a 69-year-old male presenting for evaluation of a groin rash. HISTORY OF PRESENT ILLNESS: The patient is a 69-year-old male presenting for evaluation of a groin rash. Groin Rash: - Rash in the groin area x2 months. - Described as a bed of balls. - No treatment initiated prior to this [...] MCG DAILY November 23, 2019 3:03pm 11-23-2019 [facility] ([id number]) meloxicam (MOBIC) 15 mg tablet (Patient taking [...] ounces of liquid and take as directed. mjncskegswzde-kbz-bysh29-PF (REFRESH DIGITAL PF) 0.5-1-0.5 % dpet Use in eyes three times daily. One drop in both eyes three times daily ANTACID, CALCIUM CARBONATE, ORAL Take 500 mg by mouth twice daily. ipratropium bromide (ATROVENT) 42 mcg (0.06 %) nasal spray Use 1 [place] in the nose twice daily. methyl salicylate-menthol [...] Other specified glaucoma Parkinson's disease (HCC) Schizophrenia ([facility]) Unspecified hypothyroidism PAST SURGICAL HISTORY: PAST SURGICAL [...] cleansers or alcohol-based products. Prescription sent to [facility]. If symptoms persist or worsen, consider dermatology referral. Follow-up in one month if no improvement. 3. Benign prostatic hyperplasia without lower urinary tract symptoms (N40.0) 4. Screening for genitourinary condition (Z13.89) New Diagnosis of unknown prognosis testing to follow > Follow-up as needed or if groin rash worsens may need Dermatology > 1 year Appt w/ MARIA DOLORES Kline, MT, PADebbieC for annual follow-up and refills. [...] - The prescription has been sent to [facility]. - If the rash worsens or [...] Plan: Appointment with Johnathan. documented in this encounter[facility] NoteHNO ID: [id number] Author: VIVIENNE GONZÁLES LPN Service: ? Author [...] tolerated the procedure well. 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 Work Phone: [phone] Telephone encounter Note* Telephone Encounter - Vivienne Gonzáles LPN - 05/05/2025 4:25 PM EDT Received fax of results. Uploaded to [facility] via [employer]. Vivienne Gonzáles LPN [facility]06-04-2025 Miscellaneous Notes* Telephone Encounter - Vivienne Gonzáles LPN - 05/05/2025 4:25 PM EDT Received fax of results. Uploaded to [facility] via [employer]. Vivienne Gonzáles LPN * Telephone Encounter - Vivienne Gonzáles LPN - 05/03/2025 4:07 PM EDT Called patient. Call goes to [facility]. Spoke with TRISTA Torres who states Ultrasound was done by [facility] and she will fax those results. Vivienne Gonzáles LPN documented in this encounterMer[facility]06-02-2025 Telephone encounter Note * Telephone Encounter - Vivienne Gonzáles LPN - 05/03/2025 4:07 PM EDT Called patient. Call goes to [facility]. Spoke with TRISTA Torres who states Ultrasound was done by [facility] and she will fax those results. Vivienne Gonzáles LPN [facility]03-31-2025 Evaluation note* Diagnosis Onset Date Resolution Status Admit Date Chest pain chronic March 01 9:38am Coronary artery disease chronic M arch 2024 9:38am Dementia chronic March 01 9:38am Dyslipidemia chronic March 01, 2025 9:38am Hypertension chronic March 01, 2025 9:38am Meningioma chronic March 01 9:38am Schizophrenia chronic March 01, 2025 9:38am [facility] Work Phone: [phone] 588-233904-26-2023 Miscellaneous Notes* Telephone Encounter - Vivienne Gonzáles LPN - 03/27/2023 3:29 PM EDT Faxed. Vivienne Gonzáles LPN * Telephone Encounter - Vivienne Gonzáles LPN - 03/27/2023 3:27 PM EDT Called [facility] for fax number. Per Johnathan he would like Office notes faxed.Fax number [phone]. Vivienne Gonzáles LPN documented in this encounterMer[facility]04-25-2023 History of Present illness Narrative* Johnathan Keller PA-C - 03/26/2023 4:19 PM EDT Images from the original note were not included. [facility] [...] ounces of liquid and take as directed. jzokkvtzdhisa-dpj-dshv42-PF (REFRESH DIGITAL PF) 0.5-1-0.5 % dpet Use [...] mcg (0.06 %) nasal spray Use 1 [place] in the nose twice daily. methyl salicylate-menthol (MUSCLE RUB) 15-10 % topical cream Apply to affected area three times daily as needed. levothyroxine (SYNTHROID) 150 mcg tablet levothyroxine Levothyroxine Active 150 MCG DAILY November 23, 2019 3:03pm 11-23-2019 [facility] ([id number]) meloxicam (MOBIC) 15 mg tablet timolol (TIMOPTIC-XE) [...] or procedures, and care coordination. MARIA DOLORES Christine, MT, JORGE * Vivienne Gonzáles LPN - 03/26/2023 3:10 [...] Plan: Appointment with Johnathan. documented in this encounterMer[facility]04-25-2023 Instructions* Patient Instructions* Johnathan Keller PA-C - 03/26/2023 4:17 PM EDT Ernst Miles ([id number]) 67 yo Male History of UTI- 01/2023 [...] Urinary Infection Symptoms or Urinary Retention Symptoms MARIA DOLORES Christine MT, PA-C documented in this encounterMercy [facility]04-24-2023 Miscellaneous Notes* Telephone Encounter - Vivienne Gonzáles LPN - 03/25/2023 10:55 AM EDT Received medical records. Scanned to [employer] via [employer]. Vivienne Gonzáles LPN * Telephone Encounter - Vivienne Gonzáles LPN - 03/25/2023 8:46 AM EDT Called [facility] and spoke with nurse, Ashley, ammunition assembly i laborer for location patient resides. Per Ashley patient [...] 8:39 AM EDT Called patient- Deep case resource manager for [employer] that patient used to reside at, answered phone. States that patient was admitted to [facility] back in the fall. Vivienne Gonzáles LPN documented in this encounterGrantsburg ClinicEvaluation noteNo assessment information availableWCincinnati Children's [facility] Work Phone: Evaluation note* Diagnosis Onset Date Resolution Status Hemorrhoids acute Hemorrhoids acute [facility] Work Phone: Evaluation note* Diagnosis Onset Date Resolution Status Hemorrhoids acute Acute alteration in mental status acute Acute UTI acute History of Parkinson's disease acute Leukocytosis acute Metabolic encephalopathy acu [facility] Work Phone: Evaluation note* Diagnosis Onset Date Resolution Status Acute alteration in mental status acute Acute UTI acute History of Parkinson's disease acute Leukocytosis acute Metabolic encephalopathy acu [facility] Work Phone: Evaluation note* Diagnosis Onset Date Resolution Status Acute alteration in mental status resolved Acute UTI resolved Leukocytosis resolved Metabolic encephalopathy res [facility] Work Phone: Evaluation note* Diagnosis Onset Date Resolution Status Parkinson's disease noneacti ve [facility] Work Phone: Evaluation note* Diagnosis Benign prostatic hyperplasia without lower urinary tract symptoms- Primary Acute cystitis without hematuria Acute cystitis documented in this encounter [facility] HospitalEvaluchristiana hospital note* Diagnosis Onset Date Resolution Status Tension headache acute Dementia chronic Extrapyramidal and movement disorder chronic [facility] Work Phone: Evaluation note* Diagnosis Sujey rash of groin- Primary Other candidiasis of other specified sites Rash of groin Rash and other nonspecific skin eruption Benign prostatic hyperplasia without lower urinary tract symptoms Screening for genitourinary condition Screening for other and unspecified genitourinary condition Pain in testicle, unspecified laterality documented in this encounter [facility] for referral (narrative)No reason for referral information availableWCincinnati Children's [facility] Work Phone: Chief Complaint and Reason for [...] ENCEPHALOPATHY LAB WORK LAB WORK LAB WORK SENIOR LIVING LABWORK LAB WORK SENIOR LIVING LAB WORK SENIOR LIVING LABWORK SENIOR LIVING LAB WORK SENIOR LIVING LAB WORK Reason for Visit Acute alteration in mental status Acute UTI Leukocytosis Metabolic encephalopathy Chief Complaint LAB WORK SENIOR LIVING LAB WORK SENIOR LIVING LABWORK SENIOR LIVING LAB WORK SENIOR LIVING LAB WORK SENIOR LIVING LAB WORK LABSPEC Chief Complaint SENIOR LIVING LAB WOR K SENIOR LIVING LABWORK SENIOR LIVING LAB WORK SENIOR LIVING LAB WORK SENIOR LIVING LAB WORK SENIOR LIVING LAB WORK LABSPEC Chief Complaint SENIOR LIVING LAB WOR K SENIOR LIVING LAB WORK SENIOR LIVING LAB WORK SENIOR LIVING LAB WORK LABSPEC Parkinson's disease Reason for Visit Parkinson's disease Chief Complaint SENIOR LIVING LAB WOR K SENIOR LIVING LAB WORK SENIOR LIVING LAB WORK SENIOR LIVING LAB WORK LABSPEC LABWORK Parkinson's disease Reason for Visit Parkinson's disease Chief Complaint SENIOR LIVING LAB WOR K SENIOR LIVING LABWORK DEMENTIA, SCHIZO, EXTRAPYRAMIDAL DYSFUNCTION SENIOR LIVING LABWORK 4 M FU LABWORK Reason for Visit Tension headache Dementia Extrapyramidal and movement disorder Chief Complaint SENIOR LIVING LABWORK Chief Complaint SENIOR LIVING LABWORK SENIOR LIVING LAB WORK 6 M FU LABWORK Chief Complaint Admit Date 3 M FU March 01, 2025 9:3 8am LABWORK March 11, 2025 6:1 2am SENIOR LIVING LAB WORK March 12, 2025 6 :25am SENIOR LIVING LAB WORK April 12, 2025 5:0 0am SENIOR LIVING LAB WORK April 28, 2025 5:0 0am [...] 8am LABWORK March 11, 2025 6:1 2am SENIOR LIVING LAB WORK March 12, 2025 6 :25am SENIOR LIVING LAB WORK April 12, 2025 5:0 0am SENIOR LIVING LAB WORK April 28, 2025 5:0 0am 6 M FU June 10, 2025 2:22 pm Chief Complaint Admit Date SENIOR LIVING LAB WORK April 28, 2025 5:0 0am [...] Schizophrenia August 18, 2025 1:29pm Family History No Family History Records Found Relationship Condition Age at Onset Recorded Date/T leda Unknown Family History?Cancer Unknown Decemb er 2018 5:39pm Family History?Cancer Unknown Decemb er 2018 5:39pm Relationship Condition Age at Onset Recorded Date/T leda father Malignant neoplasm of colon Unknown mother Malignant neoplasm Unknown Advance Directives No Advanced Directives Records Found Advance Directive Response Recorded Date/ Time Living Will No June 05, 2021 1 1:27am Power of Rate Reviewer No June 05, 2021 11:27am Advance Directive Response Recorded Date/ Time Living Will No May 30, 2022 5:31pm Power of Rate Reviewer No May 30 5:31pm Advance Directive Response Recorded Date/ Time Living Will No June 16, 2022 7:26pm Power of Rate Reviewer No June 16 7:26pm Advance Directive Response Recorded Date/ Time Living Will No August 06 022 8:57pm Power of Rate Reviewer No August 06, 2022 8:57pm Advance Directive Response Recorded Date/ Time Living Will No September 15 5:56pm Power of Rate Reviewer No September 15, 2022 5:56pm Advance Directive Response Recorded Date/ Time Living Will No September 15 4:56pm Power of Rate Reviewer No September 15, 2022 4:56pm Summary Purpose [...] Status: Inactive Member Role Status Dates Dr. Aayd Brown MD Primary Care Provider, Referring Provider Active Dr. Paul Connor MD Attending Provider Active Team Status: Inactive Member Role Status Dates Dr. Ayad Brown MD Primary Care Provider Active Dr. Nadia LI MD Attending Provider, Referring Provider Active [employer] Sales Representative Relationship Specialty Start Date End Date Jossue Bell MD [address] [place] [address] [address] [place] [address] PCP - General Family Medicine 01/04/20 [employer] Sales Representative Relationship Specialty Start Date End Date Jossue Bell MD [address] [place], [place] [address]Keyla [facility] [address] [place] [address] PCP - General Family Medicine 01/04/20 [employer] Sales Representative Relationship Specialty Start Date End Date Jossue Bell MD [address] [place] [address] [address] [place] [address] PCP - General Family Medicine 01/04/20 Team Status: Inactive Member Role Status Dates Dr. Ayad Brown MD Primary Care Provider Active Dr. Paul Connor MD Attending Provider, Referring Provider Active Team Status: Inactive Member Role Status Dates Dr. Ayad Brown MD Primary Care Provider Active Paul LI MD Attending Provider Active [employer] Sales Representative Relationship Specialty Start Date End Date Jossue Bell MD [address] [place] [address] [address] [place] [address] PCP - General Family Medicine 01/04/20 Team [...] June 10, 2025 End: June 10, 2025 [employer] Sales Representative Relationship Specialty Start Date End Date Jossue Bell MD [address] [place] [address] [address] [place] [address] PCP - General Family Medicine 01/04/20 Team [...] or prosecute any alcohol or drug abuse patient.[facility] HospitalIn the event this information is protected by the Federal Confidentiality of Alcohol and Drug Abuse Patient Records regulations: The Federal rules restrict any use of the information to criminally investigate or prosecute any alcohol or drug abuse patient.[facility] HospitalIn the event this information is protected by the Federal Confidentiality of Alcohol and Drug Abuse Patient Records regulations: The Federal rules restrict any use of the information to criminally investigate or prosecute any alcohol or drug abuse patient.[facility] HospitalIn the event this information is protected by the Federal Confidentiality of Alcohol and Drug Abuse Patient Records regulations: The Federal rules restrict any use of the information to criminally investigate or prosecute any alcohol or drug abuse patient.[facility] HospitalIn the event this information is protected by the Federal Confidentiality of Alcohol and Drug Abuse Patient Records regulations: The Federal rules restrict any use of the information to criminally investigate or prosecute any alcohol or drug abuse patient.[facility] Reason for Visit (unrecogniz ed section and content) Reason Comments Received Outside Medical Records Reason Comments Benign Prostatic Hypertrophy New Patient Reason Comments Torpedo Shooter - Other Reason Comments Appointment Reason Comments New Patient (unrecognized sect ion and content) No Status Records FoundNo Status Records Found INFORMATION SOURCE (unrecogn ized section and content) DATE CREATED AUTHOR 07/09/2025 [facility] DATE CREATED AUTHOR AUTHOR'S ARMANDO KATZ 10/03/2025 [facility] FOR RECORDS PERTAINING TO PATIENTS WHO ARE [...] BE BASED ON THE PRIMARY CLINICAL RECORDS. [facility] [employer] provides no warranty or guarantee of the accuracy or completeness of information in this document.
== END ==
LOC: OLS.SW 05:00
PROVIDERS: PCP Internal Medicine; Visit Provider Internal Medicine
DX: E03.9 Hypothyroidism, unspecified (principal)
CPT/HCPCS: 36415; 84443